=== PATIENT | female | born 1950 | race African-American/Black ===

== ENCOUNTER 2016-12-13 11:32 | Inpatient (IN) ==
--- NOTE | 2016-12-13 12:05 | Emergency Department Note ---
Arrival - Arrival Chief Complaint: Weakness Stated Complaint: abd pain ED Nursing Triage Note: pt c/o generalized weakness and pain to left breast. pt states she is to have breast biopsy on thursday and is off of her coumadin for that procedure. pt states "i can hardly get around." pt denies pain to extremities, chest, or abd. difficult to obtain history from pt. Mode of Arrival: Stretcher Source: Patient Time Seen by Provider: 12/13/16 11:56 - History of Present Illness HPI Narrative: The patient is a very poor historian. Her complaints are very vague and also inconsistent. She initially told the triage nurse that she was weak and having left breast pain. She denies either of those to me. Her complaint to me is that she "just got all worked up" over a breast biopsy which she is to have Thursday. She is very anxious that it might be cancer. She denies any weakness and states she is still getting around well on her own. She denies any chest pain, shortness of breath, nausea, vomiting, abdominal pain, fever, cough or any other recent illness or symptoms. She does have a history of CAD and has had prior bypass. She has a history of GI bleeding in the past and may have had some melena recently, but this is not clear. She is on Coumadin for unknown reasons but she is to stop this tomorrow in preparation for the biopsy. Allergies/Adverse Reactions: Allergies Allergy/AdvReac Type Severity Reaction Status Date / Time No Known Allergies Allergy Verified 12/13/16 11:50 Home Medications: Home Medications Medication Instructions Recorded Confirmed Type Amitriptyline [Elavil] 25 mg PO DAILY 11/28/14 12/13/16 History Furosemide Tab [Lasix Tab] 40 mg PO DAILY 11/28/14 12/13/16 History amLODIPine [Norvasc] 5 mg PO DAILY 11/28/14 12/13/16 History metFORMIN [Glucophage] 1,000 mg PO BID W/MEALS 11/28/14 12/13/16 History Aspirin EC Tab 81 mg PO DAILY 08/15/15 12/13/16 History Pantoprazole Tab [Protonix Tab] 40 mg PO DAILY #90 tablet 02/17/16 12/13/16 Rx Albuterol Sulfate [Proair Hfa] 2 puffs INH Q4H PRN 12/13/16 12/13/16 History Isosorbide Mononitrate [Isosorbide 60 mg PO BID 12/13/16 12/13/16 History Mononitrate ER] Levothyroxine Sodium 75 mcg PO DAILY 12/13/16 12/13/16 History [Levothyroxine Sodium] Nitroglycerin Sl Tab [Nitrostat] 0.4 mg SL Q5M PRN 12/13/16 12/13/16 History Warfarin Sodium [Warfarin Sodium] 5 mg PO DAILY 12/13/16 12/13/16 History Review of System - Review of System 12 point system: reviewed and no additional remarkable complaints except as stated - Review of System Constitutional: Absent: diaphoresis, fever, weakness Eyes: Absent: vision change Head/Ears/Nose/Throat: Absent: nasal drainage Respiratory: Absent: cough Cardiovascular: Absent: chest pain, palpitations, dyspnea on exertion, orthopnea , edema, syncope Gastrointestinal: Present: melena (Questionable). Absent: abdominal pain, nausea, vomiting, diarrhea, constipation, hematochezia Genitourinary female: Absent: dysuria Medical,Surgical,& Family Hx - Medical History Cardio: History of: CAD, Hypertension, MS, Valvular Heart Disease, Cardiovascular Problems No history of: Aneurysm, Cardiac Dysrhythmia, Cerebrovascular Disease, Congenital Heart Disease, CHF, Pacemaker, PVD Psychological: History of: Depression No history of: Anxiety Disorders, ADHD, Behavior Problems, Bipolar Disorder, Previous Suicide Attempt, Psychiatric/Substance Abuse Tx, Schizophrenia, Violent Behavior, Psychiatric Problems Neurology: History of: TIA No history of: Brain Aneurysm, Cerebral Hemorrhage, Cerebrovascular Accident , Cerebral Palsy, Dementia, Migraine, Multiple Sclerosis, Parkinson's Disease, Peripheral Neuropathy, Seizures, Vertigo, Neurologocal Cancer HEENT: History of: Eye Problem (NEAR SIGHTED FAR SIGHTED) No history of: Ear Problem, Dental Problems, Glaucoma, Oral Cancer, HEENT Problems Endocrine: History of: Diabetes Mellitus (NIDDM), Dyslipidemia No history of: Adrenal Disease, Diabetes Mellitus (IDDM), Thyroid Disorder, Endocrine Cancer, Endocrine Problems Rheumatology: No history of;: Fibromyalgia, Gout, Myasthenia Gravis, Psoriasis, Rheumatoid Arthritis, Sjogrens, Systemic Lupus Erythematosus, Rheumatological Problems Respiratory: No history of: Asthma, Bronchitis, COPD, Intubation, Obstructive Sleep Apnea (STATES THAT SHE WAS TESTED AT [facility] AND DOESNT HAVE DALLIN), Pulmonary Embolism, Pulmonary Hypertension, Pneumonia, Lung Cancer, Respiratory Problems Renal: No history of: Renal (Kidney) Cancer, Dialysis, Renal Failure, Renal Problems Genitourinary: History of: Kidney Stones No history of: Bladder Problem, Recurring Urinary Tract Infections, Genitourinary Cancer, Problems Gastrointestinal: History of: Diverticulitis/ Diverticulosis (left-sided diverticulosis), GERD, Gastrointestinal Bleed (multiple small bowel AVMs, or mild gastritis), Polyps (sigmoid hyperplastic polyps), GI Problems No history of: Bowel Obstruction, Clostridium Difficile, Crohn's Disease, Esophageal Varices, Hemorrhoids, Hematochezia, Hepatitis, Liver Problems, Pancreatitis, Ulcerative Colitis, Gastrointestinal Cancer Musculoskeletal: No history of: Amputation, Back/Neck Problems, Degenerative Disk Disease, Herniated Disk, Osteoporosis, Musculoskeletal Cancer, Musculoskeletal Problems Hematology: History of: Anemia No history of: Blood Transfusion Reaction, Bleeding Problems, Clotting Problems, Sickle Cell Disease, Hematologic Cancer, Blood Disorders Reproductive: No history of: Abnormal Pap Smear, Breast Cancer, Endometriosis, Ectopic , Ovarian Cysts, Complication, Sexually Transmitted Disorders , Reproductive Cancer, Reproductive Problems Other: No history of: Anesthesia Reactions, Anaphylaxis, Cancer, Eczema, HIV, Malignant Hyperthermia, MRSA, Vancomycin-Resistant Enterococci, Skin Problems, Miscellaneous Medical Problems - Surgical History Cardiac Surgeries: Sugical HX of: Cardiac Catheterization (with stents), Cardiac Surgery (bypass) Patient Denies: Femoral-Popliteal Bypass Graft, Carotid Endarterectomy, Internal Defibrillator, Vascular Access Devices Thoracic Surgeries: Patient denies;: Kidney (Renal Surgery), Lithotripsy, Nephrectomy, Organ Transplant, Lobectomy Neurologic Surgeries: Patient denies: Brain Aneurysm, Cerebral Hemorrhage, Neurologic Surgery HEENT Surgeries: Patient denies: Carotid Endarterectomy, Eye Surgery, Thyroid Surgery, Tonsilectomy & Adenoidectomy Abdominal Surgeries: Surgical HX of: Colonoscopy, EGD Patient denies: Abdominal Surgery, Appendectomy, Cholecystectomy, Gastric Bypass Surgery, Hernia Repair, Splenectomy Reproductive Surgeries: Surgical HX of;: Gynecologic Surgery, Hysterectomy Patient denies;: Breast Surgery, Section, Cystoscopy, Dilation and Curettage, Genitourinary Surgery, Tubal Ligation Orthopedic Surgeries: Patient denies;: Implanted Devices, Orthopedic Surgery, Spinal Surgery, Total Hip Replacement, Total Knee Replacement - Family History Family History: Reports;: Family Cancer (MOTHER CERVICAL), Family Stroke (FATHER ) Denies;: Family Anesthesia Reaction, Family Diabetes, Family Heart Disease, Family Hypertension, Family Psychiatric Problems - Social History Smoking Status: Current every day smoker Frequency of Alcohol Use: None Type of Drug Use: None Exam Physical Examination: GENERAL: Alert. No acute distress. HEENT: Normocephalic and atraumatic. Pale conjunctival. There is no nasal drainage. No pharyngeal erythema or exudate. NECK: Normal inspection. Supple. No lymphadenopathy or meningismus. LUNGS: No respiratory distress. Clear to auscultation bilaterally, no wheezes, rales or rhonchi. HEART: Regular rate and rhythm. ABDOMEN: Soft, nontender and nondistended with normoactive bowel sounds. BACK: Normal inspection. SKIN: Color normal. Warm and dry. EXTREMITIES: Nontender. Normal range of motion. No cyanosis. Nailbeds are pale. NEUROLOGICAL/PSYCHIATRIC: Alert and oriented -3 with normal mood and affect. Cranial nerves normal. No motor or sensory deficit. Vital Signs: Vital Signs Temperature 97.8 F 12/13/16 11:32 Pulse Rate 88 12/13/16 11:32 Respiratory Rate 18 12/13/16 11:32 Blood Pressure 113/73 12/13/16 11:32 O2 Sat by Pulse Oximetry 98 12/13/16 11:32 Course Course Narrative: Note: The multiple negatives in the past medical history were not marked by me. They are the result of the triage process, past medical records or other unknown causes. Due to time constraints, these were not all reviewed with the patient and the backslashes were not removed from the chart. They should be ignored. - Reevaluation(s) Reevaluation #1: The old chart was reviewed. This revealed that the patient is on Coumadin for a mechanical mitral valve. It also showed that the patient has a history of chronic GI bleeding from AVMs and has required transfusions multiple times in the past. The family did show and was able to contribute some history. They say that despite her denial she has been weak. They called the ambulance because she was too weak to get up off the couch earlier today. Time: 13:22 Reevaluation #2: The patient has remained stable in the ER. The patient has multiple medical problems. Her troponin is elevated at 1.37 but her CK and CK-MB are normal and she has no complaints of chest pain, shortness of breath, diaphoresis, nausea or vomiting. Her EKG shows some T-wave inversions. I have discussed this with Dr. Gant. He recommends admission to the hospitalist service because of all of her other problems. She has what appears to be pneumonia on the chest x-ray with an elevated white blood cell count. She also has a urinary tract infection and acute renal failure. Her liver enzymes are also markedly elevated , which is something new for her as well. She is anemic and this is chronic but she is a little below baseline. Her potassium is slightly elevated and she appears mildly dehydrated as well. I have discussed all of this with the hospitalist service who will see her and admit. Time: 14:21 Results - Labs CBC & BMP: 12/13/16 12:21 12/13/16 12:21 Lab Results: I have reviewed the patients labs Labs: Laboratory Tests 12/13/16 12/13/16 12/13/16 11:57 12:21 12:21 INR 2.8 D-Dimer, Quantitative 6.0 Calculated Osmolality 304.8 H AST 1315 H ALT 1769 H Alkaline Phosphatase 194 H Total Creatine Kinase 172 CK-MB (CK-2) 1.1 Troponin I 1.370 H Ur Specific [place] 1.014 Urine Urobilinogen 2.0 H Urine Leukocytes Large H Urine RBC 15 Urine WBC 210 Urine WBC Clumps Many Urine Bacteria Many Ur Culture Indicated? Results to follow - Impressions Chest x-ray shows an area of increased density in the right base consistent with pneumonia or possibly asymmetric CHF. EKG shows a sinus rhythm at 88 with a PAC. There is right axis deviation and some mild ST depression in lead I. There are inverted T waves in 1 and aVL. This is changed from an EKG done in July of this year which showed left axis deviation and an incomplete left bundle branch block. Disposition Clinical Impression: Chronic GI bleeding, History of prosthetic mitral valve, Anemia, Pneumonia, UTI (urinary tract infection), Acute renal failure, Elevated liver enzymes, Hyperkalemia, Dehydration, Generalized weakness, Elevated troponin Case discussed with: patient Disposition: Still a Patient Condition: Stable Time of Disposition: 14:21
[2016-12-13 12:24] LABS: Basophils % 0.1 % (0.0-0.8); Hematocrit 26.5 VOL% (35.7-47.0); Hemoglobin 8.4 GM/DL (12.0-16.0); Immature Granulocytes % 0.7 %; Lymphocytes # 0.5 10*3/uL (1.4-4.0); Lymphocytes % 3.6 % (21.3-54.2); Mean Corpuscular HGB Conc 31.7 GM/DL (32-36); Mean Corpuscular Hemoglobin 25 PG (27-34); Mean Corpuscular Volume 78.2 FL (87-102); Mean Platelet Volume 11.5 FL (9.6-12.0); Monocytes # 0.8 10*3/uL (0.11-0.8); Monocytes % 5.2 % (1.7-12.7); NRBC # 0.03 10*3/uL; Neutrophils # 13.3 10*3/uL (1.4-7.4); Neutrophils % 90.4 % (38.7-73.9); Platelet Count 176 T/CUMM (130-400); Red Blood Count 3.39 MC/CUMM (3.8-5.5); Red Cell Distribution Width 19.4 % (9.3-17.3); White Blood Count 14.7 T/CUMM (4-12)
--- NOTE | 2016-12-13 12:43 | XRay Report ---
History is weakness Comparison 07/08/2016 Cardiac silhouette is moderately enlarged. There are increasing reticulonodular and hazy opacities in the lower third of the right chest. Impression: 1. Mild right basilar infiltrates versus asymmetric edema PROCEDURE INTERPRETED AT [facility] DEPARTMENT OF RADIOLOGY Final Report Signed by: Dr. Teagan Vieira
[2016-12-13 12:46] LABS: INR 2.8
[2016-12-13 12:47] LABS: PT Patient Result 31.4 SECS; Partial Thromboplastin Time 41.2 SECS (0-40)
[2016-12-13 13:26] LABS: Hypochromasia 2+; Microcytosis 1+; Polychromasia Slight; Target Cells Slight
[2016-12-13 13:27] LABS: Platelet Estimate Adequate
[2016-12-13 13:28] LABS: Alanine Aminotransferase 1769 U/L (13-56); Albumin 3.1 G/DL (3.4-5.0); Alkaline Phosphatase 194 U/L (45-117); Aspartate Amino Transferase 1315 U/L (0-37); Blood Urea Nitrogen 78 MG/DL (7-18); Glucose 267 MG/DL (74-106); Osmolality,Calculated 304.8 MOS/KG (273-304); Potassium 5.2 MMOL/L (3.5-5.1); Sodium 137 MMOL/L (136-145); Total Protein 6.7 G/DL (6.4-8.3)
[2016-12-13 13:55] LABS: Apearance,Urine CLOUDY (Clear); Bacteria,Urine Many /HPF (Few); Bilirubin,Urine Negative (Negative); Blood, Urine Moderate mg/dL (Negative); Glucose,Urine (UA) Negative (Negative); Ketones,Urine Negative (Negative); Nitrite,Urine Negative (Negative); Protein,Urine 100 MG/DL; RBC,Urine 15 /HPF (0-4); Urine Color Amber (Yellow); Urine Specific Gravity 1.014 (1.001-1.035); WBC,Urine 210 /HPF (0-6)
--- NOTE | 2016-12-13 14:12 | EKG Report ---
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
[2016-12-13] MEDS ORDERED: cefTRIAXone 1,000 MG in SODIUM CHLORIDE 0.9% 100 ML IV STA (14:21)
[2016-12-13] MEDS ORDERED: cefTRIAXone 1,000 MG VIAL ONE (14:41)
--- NOTE | 2016-12-13 16:22 | Hospitalist History & Physical ---
Assessment and Plan - Time spent with patient Time spent with patient: Greater than 30 minutes (1) Pneumonia Status: Acute Assessment and plan: Chest x-ray reveals mild right basilar infiltrates. Patient's white count of 14.7. Patient will be admitted and treated with IV antibiotics and breathing treatment. Current Visit: Yes (2) UTI (urinary tract infection) Status: Acute Assessment and plan: Urinalysis is cloudy and reveals large leukocytes with WBC clumps and bacteria. He seems to follow. Patient started on ceftriaxone in the ED. Will continue current treatment. Current Visit: Yes (3) Acute renal failure Status: Acute Assessment and plan: Creatinine 6.6. Gentle IV hydration. Avoid nephrotoxic agents. Continue to monitor. Consult nephrology as needed. Current Visit: Yes (4) Elevated liver enzymes Status: Acute Current Visit: Yes (5) Hyperkalemia Status: Acute Assessment and plan: Kayexalate. Monitor electrolytes. Supplement as indicated. Current Visit: Yes (6) Dehydration Status: Acute Assessment and plan: Gentle IV hydration Current Visit: Yes (7) Elevated troponin Status: Acute Assessment and plan: Troponin I 1.370. Cardiology has been consulted. Serial cardiac enzymes. Current Visit: Yes (8) Generalized weakness Status: Acute Current Visit: Yes History of Present Illness Chief complaint: generalized weakness History of present illness: Ms. Yañez is a 66 year old female with a past medical history significant for chronic GI bleeding, AVMs, prosthetic mitral valve, hypertension, diabetes mellitus, GERD, CAD who presents to the ED with complaints of generalized weakness. The patient is a poor historian and no family member was present at the time of the exam. Most of the history comes from the patient's chart and ER documentation. The patient apparently has been "worked up" about a pending breast biopsy which is scheduled for Thursday. Family notes that the patient has been increasingly weak and was too weak to get off of the couch this morning. Patient arrived at the ED via EMS. On admission, the patient was found to have an array of problems including: UTI, acute renal failure, elevated liver enzymes, elevated white count, anemia, hyperkalemia and dehydration. Patient was found to have an elevated troponin at 1.37 without chest pain, diaphoresis, nausea or vomiting. The patient did, however, admit to ongoing shortness of breath. Case was discussed with Dr. Gant, bark tanner, Dr. Rae, ER physician, and Dr. Villasenor and it was decided that the patient will be admitted to the hospital medicine service for further evaluation and treatment. Patient is a full code. Home Medications Medication Instructions Recorded Confirmed Type Amitriptyline [Elavil] 25 mg PO DAILY 11/28/14 12/13/16 History Furosemide Tab [Lasix Tab] 40 mg PO DAILY 11/28/14 12/13/16 History amLODIPine [Norvasc] 5 mg PO DAILY 11/28/14 12/13/16 History metFORMIN [Glucophage] 1,000 mg PO BID W/MEALS 11/28/14 12/13/16 History Aspirin EC Tab 81 mg PO DAILY 08/15/15 12/13/16 History Pantoprazole Tab [Protonix Tab] 40 mg PO DAILY #90 tablet 02/17/16 12/13/16 Rx Albuterol Sulfate [Proair Hfa] 2 puffs INH Q4H PRN 12/13/16 12/13/16 History Isosorbide Mononitrate [Isosorbide 60 mg PO BID 12/13/16 12/13/16 History Mononitrate ER] Levothyroxine Sodium 75 mcg PO DAILY 12/13/16 12/13/16 History [Levothyroxine Sodium] Nitroglycerin Sl Tab [Nitrostat] 0.4 mg SL Q5M PRN 12/13/16 12/13/16 History Warfarin Sodium [Warfarin Sodium] 5 mg PO DAILY 12/13/16 12/13/16 History Allergies Allergy/AdvReac Type Severity Reaction Status Date / Time No Known Allergies Allergy Verified 12/13/16 11:50 Medical,Surgical,& Family Hx - Medical History Cardio: History of: CAD, Hypertension, CT, Valvular Heart Disease, Cardiovascular Problems No history of: Aneurysm, Cardiac Dysrhythmia, Cerebrovascular Disease, Congenital Heart Disease, CHF, Pacemaker, PVD Psychological: History of: Depression No history of: Anxiety Disorders, ADHD, Behavior Problems, Bipolar Disorder, Previous Suicide Attempt, Psychiatric/Substance Abuse Tx, Schizophrenia, Violent Behavior, Psychiatric Problems Neurology: History of: TIA No history of: Brain Aneurysm, Cerebral Hemorrhage, Cerebrovascular Accident , Cerebral Palsy, Dementia, Migraine, Multiple Sclerosis, Parkinson's Disease, Peripheral Neuropathy, Seizures, Vertigo, Neurologocal Cancer HEENT: History of: Eye Problem (NEAR SIGHTED FAR SIGHTED) No history of: Ear Problem, Dental Problems, Glaucoma, Oral Cancer, HEENT Problems Endocrine: History of: Diabetes Mellitus (NIDDM), Dyslipidemia No history of: Adrenal Disease, Diabetes Mellitus (IDDM), Thyroid Disorder, Endocrine Cancer, Endocrine Problems Rheumatology: No history of;: Fibromyalgia, Gout, Myasthenia Gravis, Psoriasis, Rheumatoid Arthritis, Sjogrens, Systemic Lupus Erythematosus, Rheumatological Problems Respiratory: No history of: Asthma, Bronchitis, COPD, Intubation, Obstructive Sleep Apnea (STATES THAT SHE WAS TESTED AT [facility] AND DOESNT HAVE DALLIN), Pulmonary Embolism, Pulmonary Hypertension, Pneumonia, Lung Cancer, Respiratory Problems Renal: No history of: Renal (Kidney) Cancer, Dialysis, Renal Failure, Renal Problems Genitourinary: History of: Kidney Stones No history of: Bladder Problem, Recurring Urinary Tract Infections, Genitourinary Cancer, Problems Gastrointestinal: History of: Diverticulitis/ Diverticulosis (left-sided diverticulosis), GERD, Gastrointestinal Bleed (multiple small bowel AVMs, or mild gastritis), Polyps (sigmoid hyperplastic polyps), GI Problems No history of: Bowel Obstruction, Clostridium Difficile, Crohn's Disease, Esophageal Varices, Hemorrhoids, Hematochezia, Hepatitis, Liver Problems, Pancreatitis, Ulcerative Colitis, Gastrointestinal Cancer Musculoskeletal: No history of: Amputation, Back/Neck Problems, Degenerative Disk Disease, Herniated Disk, Osteoporosis, Musculoskeletal Cancer, Musculoskeletal Problems Hematology: History of: Anemia No history of: Blood Transfusion Reaction, Bleeding Problems, Clotting Problems, Sickle Cell Disease, Hematologic Cancer, Blood Disorders Reproductive: No history of: Abnormal Pap Smear, Breast Cancer, Endometriosis, Ectopic , Ovarian Cysts, Complication, Sexually Transmitted Disorders , Reproductive Cancer, Reproductive Problems Other: No history of: Anesthesia Reactions, Anaphylaxis, Cancer, Eczema, HIV, Malignant Hyperthermia, MRSA, Vancomycin-Resistant Enterococci, Skin Problems, Miscellaneous Medical Problems - Surgical History Cardiac Surgeries: Sugical HX of: Cardiac Catheterization (with stents), Cardiac Surgery (bypass) Patient Denies: Femoral-Popliteal Bypass Graft, Carotid Endarterectomy, Internal Defibrillator, Vascular Access Devices Thoracic Surgeries: Patient denies;: Kidney (Renal Surgery), Lithotripsy, Nephrectomy, Organ Transplant, Lobectomy Neurologic Surgeries: Patient denies: Brain Aneurysm, Cerebral Hemorrhage, Neurologic Surgery HEENT Surgeries: Patient denies: Carotid Endarterectomy, Eye Surgery, Thyroid Surgery, Tonsilectomy & Adenoidectomy Abdominal Surgeries: Surgical HX of: Colonoscopy, EGD Patient denies: Abdominal Surgery, Appendectomy, Cholecystectomy, Gastric Bypass Surgery, Hernia Repair, Splenectomy Reproductive Surgeries: Surgical HX of;: Gynecologic Surgery, Hysterectomy Patient denies;: Breast Surgery, Section, Cystoscopy, Dilation and Curettage, Genitourinary Surgery, Tubal Ligation Orthopedic Surgeries: Patient denies;: Implanted Devices, Orthopedic Surgery, Spinal Surgery, Total Hip Replacement, Total Knee Replacement - Family History Family History: Reports;: Family Cancer (MOTHER CERVICAL), Family Stroke (FATHER ) Denies;: Family Anesthesia Reaction, Family Diabetes, Family Heart Disease, Family Hypertension, Family Psychiatric Problems - Social History Smoking Status: Current every day smoker Frequency of Alcohol Use: None Type of Drug Use: None Marital Status: Single Lives With:: Children Functional capacity: independent ambulation ROS unobtainable: due to mental status - Respiratory Respiratory: Present: dyspnea Exam - Constitutional Vitals: Period Temp Pulse Resp BP Sys/Eli Pulse Ox Last 24 Hr 97.8 F-97.8 F 77-98 16-18 103-139/61-76 94-100 General appearance: mild distress, morbidly obese - Head Head exam: Present: normal inspection, normocephalic, atraumatic - Eye Eye exam: Present: EOMI Pupils: Present: IRWIN - ENT ENT exam: Present: normal external ear exam - Neck Neck exam: Present: normal inspection. Absent: lymphadenopathy, tenderness - Respiratory Respiratory exam: Present: decreased breath sounds. Absent: rales, wheezes - Cardiovascular Cardiovascular exam: Present: regular rate and rhythm - GI/Abdominal GI/Abdominal exam: Present: normal bowel sounds. Absent: mass, tenderness, rebound - Extremities Exam Extremities exam: Present: normal capillary refill, edema - Back Exam Back exam: Present: other (unable to assess due to mental status and pt cooperation) - Neurological Exam Neurological exam: Present: alert, altered, CN II-XII intact - Psychiatric Psychiatric exam: Absent: normal affect, normal mood, agitated - Skin Skin exam: Present: normal color, dry Results - Labs CBC & BMP: 12/13/16 12:21 12/13/16 12:21
[2016-12-13] MEDS ORDERED: ACETAMINOPHEN 325 MG TABLET PO PRN (16:37)
[2016-12-13] MEDS ORDERED: ONDANSETRON 4 MG/2 ML VIAL IV PRN (16:37)
[2016-12-13] MEDS ORDERED: GLUCAGON 1 MG VIAL IM PRN (16:37)
[2016-12-13] MEDS ORDERED: ZALEPLON 5 MG CAPSULE PO PRN (16:37)
[2016-12-13] MEDS ORDERED: DOCUSATE SODIUM 100 MG CAPSULE PO PRN (16:37)
[2016-12-13] MEDS ORDERED: LACTULOSE 20 GM/30 ML UDCUP PO PRN (16:37)
[2016-12-13] MEDS ORDERED: DEXTROSE 50% 25 GM/50 ML VIAL IV PRN (16:37)
[2016-12-13] MEDS ORDERED: NITROGLYCERIN SL 0.4 MG TABLET SL PRN (16:41)
[2016-12-13] MEDS ORDERED: metFORMIN 500 MG TABLET PO SCH (17:00)
[2016-12-13] MEDS ORDERED: LEVOFLOXACIN INJ 750 MG in PREMIX 1 EACH IV ONE (17:00)
[2016-12-13] MEDS: PANTOPRAZOLE 40 MG TABLET PO SCH (17:00)
[2016-12-13] MEDS: SODIUM CHLORIDE 0.9% 1,000 ML IV SCH ×2 (17:02→23:45)
[2016-12-13] MEDS ORDERED: ALBUTEROL 2.5 MG/3 ML NEB RESP TX PRN (19:00)
[2016-12-13] MEDS ORDERED: ALUMINUM/MAGNES/SIMETH MAX STR 30 ML UDCUP PO PRN (20:08)
[2016-12-13] MEDS: ISOSORBIDE MONONITRATE 60 MG TABLET PO SCH (21:06)
[2016-12-13] MEDS: INSULIN LISPRO 100 UNIT/ML SUBCUT SCH (21:11)
[2016-12-14] MEDS: SODIUM CHLORIDE 0.9% 1,000 ML IV SCH ×4 (03:09→20:22)
[2016-12-14 06:13] LABS: Basophils % 0.1 % (0.0-0.8); Hematocrit 22.9 VOL% (35.7-47.0); Hemoglobin 7.1 GM/DL (12.0-16.0); Immature Granulocytes % 0.7 %; Lymphocytes # 0.7 10*3/uL (1.4-4.0); Lymphocytes % 4.3 % (21.3-54.2); Mean Corpuscular Hemoglobin 24 PG (27-34); Mean Corpuscular Volume 78.7 FL (87-102); Mean Platelet Volume 12.9 FL (9.6-12.0); Monocytes # 0.9 10*3/uL (0.11-0.8); Monocytes % 5.8 % (1.7-12.7); NRBC # 0.06 10*3/uL; Neutrophils # 13.6 10*3/uL (1.4-7.4); Neutrophils % 89.1 % (38.7-73.9); Platelet Count 170 T/CUMM (130-400); Red Blood Count 2.91 MC/CUMM (3.8-5.5); Red Cell Distribution Width 19.6 % (9.3-17.3); White Blood Count 15.2 T/CUMM (4-12)
[2016-12-14 06:36] LABS: Calcium 6.7 MG/DL (8.5-10.1); Osmolality,Calculated 305.7 MOS/KG (273-304); Potassium 5.2 MMOL/L (3.5-5.1)
[2016-12-14 07:34] LABS: Band Neutrophils 6 % (0-10); Lymphocytes 3 % (20-55); Segmented Neutrophils 90 % (50-85); Total Cells Counted 100
[2016-12-14 07:35] LABS: Hypochromasia 2+; Microcytosis Slight; Platelet Estimate Adequate
[2016-12-14] MEDS ORDERED: SODIUM CHLORIDE 0.9% 250 ML IV PRN (08:22)
[2016-12-14] MEDS ORDERED: FUROSEMIDE 40 MG TABLET PO SCH (09:00)
[2016-12-14] MEDS: LEVOTHYROXINE 75 MCG TABLET PO SCH (09:45)
[2016-12-14] MEDS: ISOSORBIDE MONONITRATE 60 MG TABLET PO SCH ×2 (09:45→20:22)
[2016-12-14] MEDS: PANTOPRAZOLE 40 MG TABLET PO SCH (09:46)
[2016-12-14] MEDS: AMITRIPTYLINE 25 MG TABLET PO SCH (09:46)
[2016-12-14] MEDS: INSULIN LISPRO 100 UNIT/ML SUBCUT SCH ×4 (09:48→21:07)
[2016-12-14 10:17] LABS: Ferritin 81.4 ng/ml (8-252)
--- NOTE | 2016-12-14 10:18 | Nephrology Consult Note ---
History of Present Illness Chief complaint: Increased BUN and creatinine History of present illness: Ms. Yañez is a 66 year old female who was admitted for generalized weakness and chest pain. The history is taken from the chart the patient's daughter and the patient. The patient apparently has not been eating well for several weeks per the daughter although the patient states her symptoms started just a few days ago. The patient has been told that she needs a breast biopsy and apparently has been very worried about this. We were asked see the patient for increased creatinine. The patient had a creatinine around 1.7 mg/dL about 6 months or so ago, on admission here the patient's creatinine was around 6.9 mg /dL and is increased to 7 mg/dL today. The patient denies any problems with urination, she denies any straining or decreased urine output. She does state that she has been having some dysuria occasionally. The patient also admits to not eating very well and not having much of an appetite. The patient has not had any contrast studies recently, she denies any nonsteroidal anti- inflammatory medication intake other than an 81 mg aspirin. Patient states she has had some abdominal discomfort. ROS: Head - denies headaches ENT - denies sore throat Lymphatics - denies lymphadenopathy Hematology - denies bleeding problems Heart -positive chest pain Lungs - denies shortness of breath Abdomen -positive abdominal pain Musculoskeletal - denies arthritis Skin - denies rash Neurology -positive stroke General - denies fever PE: General: in no acute distress Eyes: Pupils are round and reactive, conjunctivae are clear ENT: Nose is clear, O/P is benign Neck: Supple, no thyromegaly Lymphatics: No cervical, supraclavicular or axillary adenopathy Heart: Regular rate and rhythm, trace to 1+ pretibial edema Lungs: Clear to auscultation anteriorly, chest expansion symmetric Abdomen: Soft, normoactive bowel sounds, no hepatomegaly Musculoskeletal: No joint erythema or effusions or joint asymmetry Skin: Normal turgor, normal hydration, no rash Neuro/Psych: Patient is drowsy she does awake to answer some questions, she has poor insight Home Medications Medication Instructions Recorded Confirmed Type Amitriptyline [Elavil] 25 mg PO DAILY 11/28/14 12/13/16 History Furosemide Tab [Lasix Tab] 40 mg PO DAILY 11/28/14 12/13/16 History amLODIPine [Norvasc] 5 mg PO DAILY 11/28/14 12/13/16 History metFORMIN [Glucophage] 1,000 mg PO BID W/MEALS 11/28/14 12/13/16 History Aspirin EC Tab 81 mg PO DAILY 08/15/15 12/13/16 History Pantoprazole Tab [Protonix Tab] 40 mg PO DAILY #90 tablet 02/17/16 12/13/16 Rx Albuterol Sulfate [Proair Hfa] 2 puffs INH Q4H PRN 12/13/16 12/13/16 History Carvedilol [Coreg] 25 mg PO BID 12/13/16 12/13/16 History Estradiol [Estradiol Tab] 0.5 mg PO DAILY 12/13/16 12/13/16 History Ferrous Sulfate Tab [Feosol 325 mg PO TID 12/13/16 12/13/16 History Original Tab] Hydralazine HCl 25 mg PO TID 12/13/16 12/13/16 History Isosorbide Mononitrate [Isosorbide 60 mg PO BID 12/13/16 12/13/16 History Mononitrate ER] Levothyroxine Sodium 75 mcg PO DAILY 12/13/16 12/13/16 History [Levothyroxine Sodium] Magnesium Chloride [Slow-Mag] 71.5 mg PO BID 12/13/16 12/13/16 History Nitroglycerin Sl Tab [Nitrostat] 0.4 mg SL Q5M PRN 12/13/16 12/13/16 History Potassium Chloride Cap/Tab [K Dur] 10 meq PO BID 12/13/16 12/13/16 History Simvastatin [Zocor] 40 mg PO DAILY 12/13/16 12/13/16 History Warfarin Sodium [Warfarin Sodium] 5 mg PO DAILY 12/13/16 12/13/16 History chlordiazePOXIDE HCl 10 mg PO TID 12/13/16 12/13/16 History [Chlordiazepoxide HCl] Allergies Allergy/AdvReac Type Severity Reaction Status Date / Time No Known Allergies Allergy Verified 12/13/16 11:50 Medical,Surgical,& Family Hx - Medical History Cardio: History of: CAD, Hypertension, CA, Valvular Heart Disease, Cardiovascular Problems No history of: Aneurysm, Cardiac Dysrhythmia, Cerebrovascular Disease, Congenital Heart Disease, CHF, Pacemaker, PVD Psychological: History of: Depression No history of: Anxiety Disorders, ADHD, Behavior Problems, Bipolar Disorder, Previous Suicide Attempt, Psychiatric/Substance Abuse Tx, Schizophrenia, Violent Behavior, Psychiatric Problems Neurology: History of: TIA No history of: Brain Aneurysm, Cerebral Hemorrhage, Cerebrovascular Accident , Cerebral Palsy, Dementia, Migraine, Multiple Sclerosis, Parkinson's Disease, Peripheral Neuropathy, Seizures, Vertigo, Neurologocal Cancer HEENT: History of: Eye Problem (NEAR SIGHTED FAR SIGHTED) No history of: Ear Problem, Dental Problems, Glaucoma, Oral Cancer, HEENT Problems Endocrine: History of: Diabetes Mellitus (NIDDM), Dyslipidemia No history of: Adrenal Disease, Diabetes Mellitus (IDDM), Thyroid Disorder, Endocrine Cancer, Endocrine Problems Rheumatology: No history of;: Fibromyalgia, Gout, Myasthenia Gravis, Psoriasis, Rheumatoid Arthritis, Sjogrens, Systemic Lupus Erythematosus, Rheumatological Problems Respiratory: No history of: Asthma, Bronchitis, COPD, Intubation, Obstructive Sleep Apnea (STATES THAT SHE WAS TESTED AT [facility] AND DOESNT HAVE DALLIN), Pulmonary Embolism, Pulmonary Hypertension, Pneumonia, Lung Cancer, Respiratory Problems Renal: No history of: Renal (Kidney) Cancer, Dialysis, Renal Failure, Renal Problems Genitourinary: History of: Kidney Stones No history of: Bladder Problem, Recurring Urinary Tract Infections, Genitourinary Cancer, Problems Gastrointestinal: History of: Diverticulitis/ Diverticulosis (left-sided diverticulosis), GERD, Gastrointestinal Bleed (multiple small bowel AVMs, or mild gastritis), Polyps (sigmoid hyperplastic polyps), GI Problems No history of: Bowel Obstruction, Clostridium Difficile, Crohn's Disease, Esophageal Varices, Hemorrhoids, Hematochezia, Hepatitis, Liver Problems, Pancreatitis, Ulcerative Colitis, Gastrointestinal Cancer Musculoskeletal: No history of: Amputation, Back/Neck Problems, Degenerative Disk Disease, Herniated Disk, Osteoporosis, Musculoskeletal Cancer, Musculoskeletal Problems Hematology: History of: Anemia No history of: Blood Transfusion Reaction, Bleeding Problems, Clotting Problems, Sickle Cell Disease, Hematologic Cancer, Blood Disorders Reproductive: No history of: Abnormal Pap Smear, Breast Cancer, Endometriosis, Ectopic , Ovarian Cysts, Complication, Sexually Transmitted Disorders , Reproductive Cancer, Reproductive Problems Other: No history of: Anesthesia Reactions, Anaphylaxis, Cancer, Eczema, HIV, Malignant Hyperthermia, MRSA, Vancomycin-Resistant Enterococci, Skin Problems, Miscellaneous Medical Problems - Surgical History Cardiac Surgeries: Sugical HX of: Cardiac Catheterization (with stents), Cardiac Surgery (bypass) Patient Denies: Femoral-Popliteal Bypass Graft, Carotid Endarterectomy, Internal Defibrillator, Vascular Access Devices Thoracic Surgeries: Patient denies;: Kidney (Renal Surgery), Lithotripsy, Nephrectomy, Organ Transplant, Lobectomy Neurologic Surgeries: Patient denies: Brain Aneurysm, Cerebral Hemorrhage, Neurologic Surgery HEENT Surgeries: Patient denies: Carotid Endarterectomy, Eye Surgery, Thyroid Surgery, Tonsilectomy & Adenoidectomy Abdominal Surgeries: Surgical HX of: Colonoscopy, EGD Patient denies: Abdominal Surgery, Appendectomy, Cholecystectomy, Gastric Bypass Surgery, Hernia Repair, Splenectomy Reproductive Surgeries: Surgical HX of;: Gynecologic Surgery, Hysterectomy Patient denies;: Breast Surgery, Section, Cystoscopy, Dilation and Curettage, Genitourinary Surgery, Tubal Ligation Orthopedic Surgeries: Patient denies;: Implanted Devices, Orthopedic Surgery, Spinal Surgery, Total Hip Replacement, Total Knee Replacement - Family History Family History: Reports;: Family Cancer (MOTHER CERVICAL), Family Stroke (FATHER ) Denies;: Family Anesthesia Reaction, Family Diabetes, Family Heart Disease, Family Hypertension, Family Psychiatric Problems - Social History Smoking Status: Current every day smoker Frequency of Alcohol Use: None Type of Drug Use: None Exam - Vital Signs Vital signs: Period Temp Pulse Resp BP Sys/Eli Pulse Ox Last 24 Hr 97.4 F-98.1 F 77-98 16-20 103-140/61-76 89-100 Results - Labs CBC & BMP: 12/14/16 04:29 12/14/16 04:30 Assessment and Plan (1) Acute renal failure Status: Acute Assessment and plan: This patient has some baseline chronic renal insufficiency related to diabetes and hypertension, and now has acute renal failure with a creatinine of around 7 mg/dL, this may be related to poor p.o. intake, as well as her infection with her UTI and possible occult hypoperfusion and hypotension related to her anemia. Will check a fractional excretion of urea nitrogen and sodium, I am going to start her on some IV fluids will also check a renal ultrasound and a bladder scan for urinary retention. Current Visit: Yes (2) Anemia Status: Acute Assessment and plan: I would have a low threshold for transfusing her. Current Visit: Yes (3) Elevated liver enzymes Status: Acute Assessment and plan: This may go along with some occult hypotension and shock liver Current Visit: Yes (4) Generalized weakness Status: Acute Current Visit: Yes (5) History of prosthetic mitral valve Status: Acute Current Visit: Yes (6) Pneumonia Status: Acute Assessment and plan: I agree with IV antibiotics Current Visit: Yes (7) UTI (urinary tract infection) Status: Acute Current Visit: Yes
[2016-12-14 10:22] LABS: Albumin 2.7 G/DL (3.4-5.0); Bilirubin,Direct 0.2 MG/DL (0.0-0.20); Bilirubin,Indirect 0.2 MG/DL (0.0-1.0); Bilirubin,Total 0.4 MG/DL (0.2-1.0); Total Protein 6.1 G/DL (6.4-8.3)
[2016-12-14] MEDS ORDERED: DEXTROSE IV SCH ×2 (10:30→12:00)
[2016-12-14] MEDS ORDERED: MULTIVITAMIN IV SCH ×2 (10:30→12:00)
[2016-12-14] MEDS ORDERED: THIAMINE IV SCH ×2 (10:30→12:00)
--- NOTE | 2016-12-14 10:35 | Ultrasound Report ---
History his elevated liver enzymes The liver is 18.8 cm in length. There is mild relative increased echogenicity of the hepatic triad structures throughout the liver. Hepatic echotexture is otherwise within normal limits No renal hydronephrosis seen bilaterally Spleen is 10.0 cm in length No biliary ductal dilatation is seen Proximal visualized aorta and IVC are normal in size. There or distally. Visualized pancreatic body is normal in size. Portions of the head and tail obscured by bowel gas Patient is status post cholecystectomy Impression: 1. Prior cholecystectomy 2. Limited visualization of midline retroperitoneal structures 3. Mild relatively increased echogenicity of hepatic triad structures can be associated with sequelae of hepatitis or other causes of liver edema. Clinical correlation requested The Ultrasound images were captured and stored. PROCEDURE INTERPRETED AT [facility] DEPARTMENT OF RADIOLOGY Final Report Signed by: Dr. Teagan Vieira
[2016-12-14 10:57] LABS: Folate > 24.0 NG/ML (5.4-24.0); Vitamin B12 1098 PG/ML (211-911)
--- NOTE | 2016-12-14 11:20 | Cardiology Consult Note ---
Assessment and Plan (1) H/O mitral valve replacement with mechanical valve Status: Acute Assessment and plan: She will require chronic anticoagulation for this. Current Visit: Yes (2) Acute renal failure Status: Acute Current Visit: Yes (3) Chronic GI bleeding Status: Acute Current Visit: Yes (4) Acute combined systolic and diastolic CHF, NYHA class 3 Status: Acute Current Visit: No (5) Congestive heart failure Status: Acute Current Visit: No (6) Coronary artery disease Status: Acute Assessment and plan: She has elevations in her troponins and are clear-cut. She has been complaining of "gas" over the last several days. She is significantly anemic and they aretransfusing her. Current Visit: No (7) PAD (peripheral artery disease) Status: Acute Current Visit: No History of Present Illness - Data of Consult Patient: known to practice within the last 3 years - Consult Narrative Reason for consult: Elevated troponins History of present illness: Ms. Yañez is a 66 year old female who is well known to me. She had a mechanical mitral valve prosthesis placed for severe MR probably 10 years ago. She has been on chronic anticoagulation since that time. She also has severe coronary disease and has had multiple percutaneous interventions with stenting of the distal right and other vessels over the years. She has been clinically stable and has had problems with GI bleeds in the past to the point that we had to stop her Plavix at least temporarily while she was at risk for acute stent thrombosis. She has had problems with bronchospastic disease and a history of diabetes bronchospastic disease chronic anticoagulation anginal chest pain cardiomyopathy and peptic ulcer disease. She now has elevated liver function tests and worsening level of consciousness and appears to be to be encephalopathic. Her creatinine is 6.6. She was recently told that she had lesions of both breasts worse on the left and was for breast biopsy. CC: Racquel Villasenor MD - Home Medications and Allergies Home Medications: Home Medications Medication Instructions Recorded Confirmed Type Amitriptyline [Elavil] 25 mg PO DAILY 11/28/14 12/13/16 History Furosemide Tab [Lasix Tab] 40 mg PO DAILY 11/28/14 12/13/16 History amLODIPine [Norvasc] 5 mg PO DAILY 11/28/14 12/13/16 History metFORMIN [Glucophage] 1,000 mg PO BID W/MEALS 11/28/14 12/13/16 History Aspirin EC Tab 81 mg PO DAILY 08/15/15 12/13/16 History Pantoprazole Tab [Protonix Tab] 40 mg PO DAILY #90 tablet 02/17/16 12/13/16 Rx Albuterol Sulfate [Proair Hfa] 2 puffs INH Q4H PRN 12/13/16 12/13/16 History Carvedilol [Coreg] 25 mg PO BID 12/13/16 12/13/16 History Estradiol [Estradiol Tab] 0.5 mg PO DAILY 12/13/16 12/13/16 History Ferrous Sulfate Tab [Feosol 325 mg PO TID 12/13/16 12/13/16 History Original Tab] Hydralazine HCl 25 mg PO TID 12/13/16 12/13/16 History Isosorbide Mononitrate [Isosorbide 60 mg PO BID 12/13/16 12/13/16 History Mononitrate ER] Levothyroxine Sodium 75 mcg PO DAILY 12/13/16 12/13/16 History [Levothyroxine Sodium] Magnesium Chloride [Slow-Mag] 71.5 mg PO BID 12/13/16 12/13/16 History Nitroglycerin Sl Tab [Nitrostat] 0.4 mg SL Q5M PRN 12/13/16 12/13/16 History Potassium Chloride Cap/Tab [K Dur] 10 meq PO BID 12/13/16 12/13/16 History Simvastatin [Zocor] 40 mg PO DAILY 12/13/16 12/13/16 History Warfarin Sodium [Warfarin Sodium] 5 mg PO DAILY 12/13/16 12/13/16 History chlordiazePOXIDE HCl 10 mg PO TID 12/13/16 12/13/16 History [Chlordiazepoxide HCl] Allergies/Adverse Reactions: Allergies Allergy/AdvReac Type Severity Reaction Status Date / Time No Known Allergies Allergy Verified 12/13/16 11:50 Medical,Surgical,& Family Hx - Medical History Cardio: History of: CAD, Hypertension, ND, Valvular Heart Disease, Cardiovascular Problems No history of: Aneurysm, Cardiac Dysrhythmia, Cerebrovascular Disease, Congenital Heart Disease, CHF, Pacemaker, PVD Psychological: History of: Depression No history of: Anxiety Disorders, ADHD, Behavior Problems, Bipolar Disorder, Previous Suicide Attempt, Psychiatric/Substance Abuse Tx, Schizophrenia, Violent Behavior, Psychiatric Problems Neurology: History of: TIA No history of: Brain Aneurysm, Cerebral Hemorrhage, Cerebrovascular Accident , Cerebral Palsy, Dementia, Migraine, Multiple Sclerosis, Parkinson's Disease, Peripheral Neuropathy, Seizures, Vertigo, Neurologocal Cancer HEENT: History of: Eye Problem (NEAR SIGHTED FAR SIGHTED) No history of: Ear Problem, Dental Problems, Glaucoma, Oral Cancer, HEENT Problems Endocrine: History of: Diabetes Mellitus (NIDDM), Dyslipidemia No history of: Adrenal Disease, Diabetes Mellitus (IDDM), Thyroid Disorder, Endocrine Cancer, Endocrine Problems Rheumatology: No history of;: Fibromyalgia, Gout, Myasthenia Gravis, Psoriasis, Rheumatoid Arthritis, Sjogrens, Systemic Lupus Erythematosus, Rheumatological Problems Respiratory: No history of: Asthma, Bronchitis, COPD, Intubation, Obstructive Sleep Apnea (STATES THAT SHE WAS TESTED AT [facility] AND DOESNT HAVE DALLIN), Pulmonary Embolism, Pulmonary Hypertension, Pneumonia, Lung Cancer, Respiratory Problems Renal: No history of: Renal (Kidney) Cancer, Dialysis, Renal Failure, Renal Problems Genitourinary: History of: Kidney Stones No history of: Bladder Problem, Recurring Urinary Tract Infections, Genitourinary Cancer, Problems Gastrointestinal: History of: Diverticulitis/ Diverticulosis (left-sided diverticulosis), GERD, Gastrointestinal Bleed (multiple small bowel AVMs, or mild gastritis), Polyps (sigmoid hyperplastic polyps), GI Problems No history of: Bowel Obstruction, Clostridium Difficile, Crohn's Disease, Esophageal Varices, Hemorrhoids, Hematochezia, Hepatitis, Liver Problems, Pancreatitis, Ulcerative Colitis, Gastrointestinal Cancer Musculoskeletal: No history of: Amputation, Back/Neck Problems, Degenerative Disk Disease, Herniated Disk, Osteoporosis, Musculoskeletal Cancer, Musculoskeletal Problems Hematology: History of: Anemia No history of: Blood Transfusion Reaction, Bleeding Problems, Clotting Problems, Sickle Cell Disease, Hematologic Cancer, Blood Disorders Reproductive: No history of: Abnormal Pap Smear, Breast Cancer, Endometriosis, Ectopic , Ovarian Cysts, Complication, Sexually Transmitted Disorders , Reproductive Cancer, Reproductive Problems Other: No history of: Anesthesia Reactions, Anaphylaxis, Cancer, Eczema, HIV, Malignant Hyperthermia, MRSA, Vancomycin-Resistant Enterococci, Skin Problems, Miscellaneous Medical Problems - Surgical History Cardiac Surgeries: Sugical HX of: Cardiac Catheterization (with stents), Cardiac Surgery (bypass) Patient Denies: Femoral-Popliteal Bypass Graft, Carotid Endarterectomy, Internal Defibrillator, Vascular Access Devices Thoracic Surgeries: Patient denies;: Kidney (Renal Surgery), Lithotripsy, Nephrectomy, Organ Transplant, Lobectomy Neurologic Surgeries: Patient denies: Brain Aneurysm, Cerebral Hemorrhage, Neurologic Surgery HEENT Surgeries: Patient denies: Carotid Endarterectomy, Eye Surgery, Thyroid Surgery, Tonsilectomy & Adenoidectomy Abdominal Surgeries: Surgical HX of: Colonoscopy, EGD Patient denies: Abdominal Surgery, Appendectomy, Cholecystectomy, Gastric Bypass Surgery, Hernia Repair, Splenectomy Reproductive Surgeries: Surgical HX of;: Gynecologic Surgery, Hysterectomy Patient denies;: Breast Surgery, Section, Cystoscopy, Dilation and Curettage, Genitourinary Surgery, Tubal Ligation Orthopedic Surgeries: Patient denies;: Implanted Devices, Orthopedic Surgery, Spinal Surgery, Total Hip Replacement, Total Knee Replacement - Family History Family History: Reports;: Family Cancer (MOTHER CERVICAL), Family Stroke (FATHER ) Denies;: Family Anesthesia Reaction, Family Diabetes, Family Heart Disease, Family Hypertension, Family Psychiatric Problems - Social History Smoking Status: Current every day smoker Frequency of Alcohol Use: None Type of Drug Use: None Physical Examination Vital Signs Temp Pulse Resp BP Pulse Ox 97.8 F 88 18 113/73 98 12/13/16 11:32 12/13/16 11:32 12/13/16 11:32 12/13/16 11:32 12/13/16 11:32 Other: Physical examination: General: The patient is sleepy but responsive. HEENT: Normocephalic, sclera are clear there are no lid xanthelasmas noted. Oral mucosa is free of cyanosis or pallor. Neck: The neck is supple without JVD. Carotid upstrokes are normal volume and amplitude. There is no audible bruit. There is no palpable thyroid. Trachea is midline. Chest: Lungs: The patient is comfortable at rest without intercostal retractions or abdominal breathing. There are no adventitial sounds rales rubs rhonchi or wheezes noted. There are decreased breath sounds at the bases bilaterally. Cardiovascular: The PMI is nondisplaced. No palpable thrill S3 or S4. There is a regular rate and rhythm with no murmur rub or gallop noted. Dorsalis pedis posterior tibial and femoral pulses are 2+ and equal bilaterally. Metallic valve clicks are noted Abdomen: Abdomen is soft and nontender with normal active bowel sounds. There is no palpable mass or organomegaly noted. There is no midline bruit. Extremities exam: There is no cyanosis clubbing or edema. Skin: Skin is warm and dry without ecchymosis or urticaria or skin rash. There are no palpable nodules. Musculoskeletal: There is no kyphosis or scoliosis noted. Result/EKG - Labs CBC & BMP: 12/14/16 04:29 12/14/16 04:30 Labs: Laboratory Results - last 24 hr 12/13/16 12/13/16 12/13/16 11:57 12:21 12:21 WBC RBC Hgb Hct MCV MCH MCHC RDW Plt Count MPV Neut % (Auto) Lymph % (Auto) Bracken % (Auto) Eos % (Auto) Baso % (Auto) Neut # (Auto) Lymph # (Auto) Bracken # (Auto) Eos # (Auto) Baso # (Auto) Total Counted Immature Gran % Nucleated RBC % Immature Gran # Segmented Neutrophils Band Neutrophils Lymphocytes Monocytes Nucleated RBCs # Platelet Estimate Polychromasia Hypochromasia Microcytosis Target Cells Absolute Retic Percent Retic Retic Hgb Equivalent INR 2.8 PT Patient/Control Mix 31.4 D D-Dimer, Quantitative 6.0 Circ Anticoag PTT 41.2 H D Sodium 137 Potassium 5.2 H Chloride 99 Carbon Dioxide 22 Anion Gap 21.2 H BUN 78 H Creatinine 6.60 H GFR Calculation 8 BUN/Creatinine Ratio 11.00 Glucose 267 H POC Glucose Calculated Osmolality 304.8 H Lactic Acid Calcium 7.0 L Iron Ferritin Total Bilirubin 0.60 Direct Bilirubin Indirect Bilirubin AST 1315 H ALT 1769 H Alkaline Phosphatase 194 H Total Creatine Kinase 172 CK-MB (CK-2) 1.1 Troponin I 1.370 H Total Protein 6.7 Albumin 3.1 L Globulin 3.6 H Albumin/Globulin Ratio 0.8 L Vitamin B12 Folate Urine Color Gina Urine Appearance Cloudy Urine pH 5.0 Ur Specific Kinsley 1.014 Urine Protein 100 Urine Glucose (UA) Negative Urine Ketones Negative Urine Blood Moderate Urine Nitrate Negative Urine Bilirubin Negative Urine Urobilinogen 2.0 H Urine Leukocytes Large H Urine RBC 15 Urine WBC 210 Urine WBC Clumps Many Urine Bacteria Many Ur Culture Indicated? Results to follow Blood Type Antibody Screen Crossmatch 12/13/16 12/13/16 12/13/16 12:21 14:47 16:54 WBC 14.7 H RBC 3.39 L Hgb 8.4 L Hct 26.5 L MCV 78.2 L MCH 25 L MCHC 31.7 L RDW 19.4 H Plt Count 176 MPV 11.5 Neut % (Auto) 90.4 H Lymph % (Auto) 3.6 L Bracken % (Auto) 5.2 Eos % (Auto) 0.0 Baso % (Auto) 0.1 Neut # (Auto) 13.3 H Lymph # (Auto) 0.5 L Bracken # (Auto) 0.8 Eos # (Auto) 0.0 Baso # (Auto) 0.0 Total Counted Immature Gran % 0.7 Nucleated RBC % 0.2 Immature Gran # 0.10 Segmented Neutrophils Band Neutrophils Lymphocytes Monocytes Nucleated RBCs # 0.03 Platelet Estimate Adequate Polychromasia Slight Hypochromasia 2+ Microcytosis 1+ Target Cells Slight Absolute Retic Percent Retic Retic Hgb Equivalent INR PT Patient/Control Mix D-Dimer, Quantitative Circ Anticoag PTT Sodium Potassium Chloride Carbon Dioxide Anion Gap BUN Creatinine GFR Calculation BUN/Creatinine Ratio Glucose POC Glucose 276 H Calculated Osmolality Lactic Acid 1.9 Calcium Iron Ferritin Total Bilirubin Direct Bilirubin Indirect Bilirubin AST ALT Alkaline Phosphatase Total Creatine Kinase CK-MB (CK-2) Troponin I Total Protein Albumin Globulin Albumin/Globulin Ratio Vitamin B12 Folate Urine Color Urine Appearance Urine pH Ur Specific Kinsley Urine Protein Urine Glucose (UA) Urine Ketones Urine Blood Urine Nitrate Urine Bilirubin Urine Urobilinogen Urine Leukocytes Urine RBC Urine WBC Urine WBC Clumps Urine Bacteria Ur Culture Indicated? Blood Type Antibody Screen Crossmatch 12/13/16 12/14/16 12/14/16 20:48 04:29 04:30 WBC 15.2 H RBC 2.91 L Hgb 7.1 L Hct 22.9 L MCV 78.7 L MCH 24 L MCHC 31.0 L RDW 19.6 H Plt Count 170 MPV 12.9 H Neut % (Auto) 89.1 H Lymph % (Auto) 4.3 L Bracken % (Auto) 5.8 Eos % (Auto) 0.0 Baso % (Auto) 0.1 Neut # (Auto) 13.6 H Lymph # (Auto) 0.7 L Bracken # (Auto) 0.9 H Eos # (Auto) 0.0 Baso # (Auto) 0.0 Total Counted 100 Immature Gran % 0.7 Nucleated RBC % 0.4 Immature Gran # 0.10 Segmented Neutrophils 90 H Band Neutrophils 6 Lymphocytes 3 L Monocytes 1 L Nucleated RBCs # 0.06 Platelet Estimate Adequate Polychromasia Hypochromasia 2+ Microcytosis Slight Target Cells Absolute Retic Percent Retic Retic Hgb Equivalent INR PT Patient/Control Mix D-Dimer, Quantitative Circ Anticoag PTT Sodium 138 Potassium 5.2 H Chloride 100 Carbon Dioxide 24 Anion Gap 19.2 H BUN 93 H D Creatinine 7.00 H GFR Calculation 7 BUN/Creatinine Ratio 13.00 Glucose 133 H POC Glucose 272 H Calculated Osmolality 305.7 H Lactic Acid Calcium 6.7 L Iron Ferritin Total Bilirubin Direct Bilirubin Indirect Bilirubin AST ALT Alkaline Phosphatase Total Creatine Kinase CK-MB (CK-2) Troponin I Total Protein Albumin Globulin Albumin/Globulin Ratio Vitamin B12 Folate Urine Color Urine Appearance Urine pH Ur Specific Kinsley Urine Protein Urine Glucose (UA) Urine Ketones Urine Blood Urine Nitrate Urine Bilirubin Urine Urobilinogen Urine Leukocytes Urine RBC Urine WBC Urine WBC Clumps Urine Bacteria Ur Culture Indicated? Blood Type Antibody Screen Crossmatch 12/14/16 12/14/16 12/14/16 06:47 07:54 09:24 WBC RBC Hgb Hct MCV MCH MCHC RDW Plt Count MPV Neut % (Auto) Lymph % (Auto) Bracken % (Auto) Eos % (Auto) Baso % (Auto) Neut # (Auto) Lymph # (Auto) Bracken # (Auto) Eos # (Auto) Baso # (Auto) Total Counted Immature Gran % Nucleated RBC % Immature Gran # Segmented Neutrophils Band Neutrophils Lymphocytes Monocytes Nucleated RBCs # Platelet Estimate Polychromasia Hypochromasia Microcytosis Target Cells Absolute Retic 0.0 Percent Retic 1.3 Retic Hgb Equivalent 18.2 L INR PT Patient/Control Mix D-Dimer, Quantitative Circ Anticoag PTT Sodium Potassium Chloride Carbon Dioxide Anion Gap BUN Creatinine GFR Calculation BUN/Creatinine Ratio Glucose POC Glucose 161 H Calculated Osmolality Lactic Acid Calcium Iron Ferritin Total Bilirubin Direct Bilirubin Indirect Bilirubin AST ALT Alkaline Phosphatase Total Creatine Kinase CK-MB (CK-2) Troponin I 1.430 H Total Protein Albumin Globulin Albumin/Globulin Ratio Vitamin B12 Folate Urine Color Urine Appearance Urine pH Ur Specific Kinsley Urine Protein Urine Glucose (UA) Urine Ketones Urine Blood Urine Nitrate Urine Bilirubin Urine Urobilinogen Urine Leukocytes Urine RBC Urine WBC Urine WBC Clumps Urine Bacteria Ur Culture Indicated? Blood Type Antibody Screen Crossmatch 12/14/16 12/14/16 12/14/16 09:24 09:24 09:24 WBC RBC Hgb Hct MCV MCH MCHC RDW Plt Count MPV Neut % (Auto) Lymph % (Auto) Bracken % (Auto) Eos % (Auto) Baso % (Auto) Neut # (Auto) Lymph # (Auto) Bracken # (Auto) Eos # (Auto) Baso # (Auto) Total Counted Immature Gran % Nucleated RBC % Immature Gran # Segmented Neutrophils Band Neutrophils Lymphocytes Monocytes Nucleated RBCs # Platelet Estimate Polychromasia Hypochromasia Microcytosis Target Cells Absolute Retic Percent Retic Retic Hgb Equivalent INR PT Patient/Control Mix D-Dimer, Quantitative Circ Anticoag PTT Sodium Potassium Chloride Carbon Dioxide Anion Gap BUN Creatinine GFR Calculation BUN/Creatinine Ratio Glucose POC Glucose Calculated Osmolality Lactic Acid Calcium Iron 8 L Ferritin 81.4 Total Bilirubin 0.40 Direct Bilirubin 0.20 Indirect Bilirubin 0.2 AST 274 H ALT 1177 H Alkaline Phosphatase 154 H Total Creatine Kinase CK-MB (CK-2) Troponin I Total Protein 6.1 L Albumin 2.7 L Globulin Albumin/Globulin Ratio Vitamin B12 1098 H Folate > 24.0 H Urine Color Urine Appearance Urine pH Ur Specific Kinsley Urine Protein Urine Glucose (UA) Urine Ketones Urine Blood Urine Nitrate Urine Bilirubin Urine Urobilinogen Urine Leukocytes Urine RBC Urine WBC Urine WBC Clumps Urine Bacteria Ur Culture Indicated? Blood Type Antibody Screen Crossmatch 12/14/16 12/14/16 09:24 Unknown WBC RBC Hgb Hct MCV MCH MCHC RDW Plt Count MPV Neut % (Auto) Lymph % (Auto) Bracken % (Auto) Eos % (Auto) Baso % (Auto) Neut # (Auto) Lymph # (Auto) Bracken # (Auto) Eos # (Auto) Baso # (Auto) Total Counted Immature Gran % Nucleated RBC % Immature Gran # Segmented Neutrophils Band Neutrophils Lymphocytes Monocytes Nucleated RBCs # Platelet Estimate Polychromasia Hypochromasia Microcytosis Target Cells Absolute Retic Percent Retic Retic Hgb Equivalent INR PT Patient/Control Mix D-Dimer, Quantitative Circ Anticoag PTT Sodium Potassium Chloride Carbon Dioxide Anion Gap BUN Creatinine GFR Calculation BUN/Creatinine Ratio Glucose POC Glucose Calculated Osmolality Lactic Acid Calcium Iron Ferritin Total Bilirubin Direct Bilirubin Indirect Bilirubin AST ALT Alkaline Phosphatase Total Creatine Kinase 171 CK-MB (CK-2) Troponin I Total Protein Albumin Globulin Albumin/Globulin Ratio Vitamin B12 Folate Urine Color Urine Appearance Urine pH Ur Specific Kinsley Urine Protein Urine Glucose (UA) Urine Ketones Urine Blood Urine Nitrate Urine Bilirubin Urine Urobilinogen Urine Leukocytes Urine RBC Urine WBC Urine WBC Clumps Urine Bacteria Ur Culture Indicated? Blood Type A POSITIVE Antibody Screen Negative Crossmatch See Detail
[2016-12-14] MEDS: amLODIPine 5 MG TABLET PO SCH (11:34)
--- NOTE | 2016-12-14 11:34 | ECHO Report ---
Virginia Yañez Exam Date: 12/14/2016 09:42 Referring Physician: Technologist: Venita Espitia Age: 66 Ht (in): 62 Wt (lb): 192 Gender: F Exam Location: [facility] Echo Indications: Hx. AVR, elevated troponin, weakness, dehydration, hyperkalemia, UTI BP: 121 / 64 HR: 85 Rhythm: Sinus Technical Quality: IMPRESSIONS Mild left ventricular hypertrophy. Moderately decreased left ventricular systolic function, left ventricular ejection fraction is estimated at 30%. Mildly increased right ventricular size. The right atrium is mildly enlarged. Severely increased left atrial diameter. Prosthetic mitral valve mean gradient is 4.5 mmHg. Trace mitral valve regurgitation. Mild aortic valve sclerosis. Morphologically normal tricuspid valve. Moderate tricuspid valve regurgitation. Tricuspid regurgitation velocities suggest a PAP of 46 mmHg. Morphologically normal pulmonic valve. No pericardial effusion. Normal size aortic root and proximal ascending aorta. MEASUREMENTS (Male / Female) Normal Values 2D ECHO LV Diastolic Diameter PLAX 4.8 cm 4.2 - 5.9 / 3.9 - 5.3 cm LV Systolic Diameter PLAX 4.0 cm LV Fractional Shortening PLAX 15.8 % IVS Diastolic Thickness 1.4 cm 0.6 - 1.0 / 0.6 - 0.9 cm LVPW Diastolic Thickness 1.2 cm 0.6 - 1.0 / 0.6 - 0.9 cm RV Internal Dim ED PLAX 3.0 cm Aortic Root Diameter 2.8 cm LA Systolic Diameter LX 4.7 cm 3.0 - 4.0 / 2.7 - 3.8 cm DOPPLER Mitral E to A Ratio 2.4 TR Peak Velocity 300.0 cm/s TR Peak Gradient 36.0 mmHg FINDINGS Left Ventricle Mild left ventricular hypertrophy. Moderately decreased left ventricular systolic function, left ventricular ejection fraction is estimated at 30%. Right Ventricle Mildly increased right ventricular size. Right Atrium The right atrium is mildly enlarged. Left Atrium Severely increased left atrial diameter. Mitral Valve Prosthetic mitral valve mean gradient is 4.5 mmHg. Trace mitral valve regurgitation. Aortic Valve Mild aortic valve sclerosis. Tricuspid Valve Morphologically normal tricuspid valve. Moderate tricuspid valve regurgitation. Tricuspid regurgitation velocities suggest a PAP of 46 mmHg. Pulmonic Valve Morphologically normal pulmonic valve. Pericardium No pericardial effusion. Aorta Normal size aortic root and proximal ascending aorta. Henrik Gant MD (Electronically Signed) Final Date: 14 December 2016 11:33
--- NOTE | 2016-12-14 13:21 | Hospitalist Progress Note ---
Assessment and Plan - Time spent with patient Time spent with patient: Greater than 30 minutes (1) Encephalopathy acute Status: Acute Assessment and plan: Mutifactorial, infectious and metabolic. Obtain an ammonia level. Unable to perform MRI due to mechanical valve. Current Visit: Yes (2) Abdominal pain Status: Acute Assessment and plan: This may be secondary to the patient's overall illness and abdominal ultrasound revealed no acute findings. Will obtain an amylase and lipase. Place the patient on PPI. Will consider a CT of the abdomen if the abdominal pain persists. Current Visit: Yes (3) HIRO (acute kidney injury) Status: Acute Assessment and plan: With azotemia. I suspect this is likely dehydration secondary to reduced oral intake due to encephalopathy. Furthermore patient was on furosemide. Hold nephrotoxic medications. Consult nephrology, defer to them. Current Visit: Yes (4) Urinary retention Status: Acute Assessment and plan: Intermitted catheterizations, Urology consulted, appreciate their recommendations. Current Visit: Yes (5) Elevated liver enzymes Status: Acute Assessment and plan: Right upper quadrant ultrasound revealed no evidence of disease, will consult gastroenterology. This may represent hepatic shock in the setting of dehydration. Current Visit: Yes (6) Elevated troponin Status: Acute Assessment and plan: Cardiology has been consulted, defer to them. Current Visit: Yes (7) H/O mitral valve replacement with mechanical valve Status: Acute Assessment and plan: Patient has anemia and I suspect acute blood loss secondary to potential GI bleed. Anticoagulation is being held and anemia panel has been drawn and stool studies to assess for the presence of blood. Current Visit: Yes (8) Hyperkalemia Status: Acute Assessment and plan: Due to acute kidney injury. Current Visit: Yes (9) Pneumonia Status: Acute Assessment and plan: Start antibiotics. Current Visit: Yes (10) UTI (urinary tract infection) Status: Acute Assessment and plan: Start antibiotics. Current Visit: Yes (11) Congestive heart failure Status: Acute Current Visit: No (12) Positive blood cultures Status: Acute Assessment and plan: GNR, zosyn and levaquin. Current Visit: Yes (13) Anemia Status: Acute Assessment and plan: We will start the patient on PPI and consult gastroenterology. Will transfuse 2 units. Heme occult. see above. Current Visit: Yes Hospitalist: Subjective Interval history: Complains of abdominal pain. States that his left upper quadrant epigastric and right upper quadrant. Exam - Constitutional Vitals: Period Temp Pulse Resp BP Sys/Eli Pulse Ox Last 24 Hr 97.4 F-98.1 F 77-98 16-20 98-140/59-76 89-100 General appearance: no acute distress, over weight - Head Head exam: Present: normal inspection, normocephalic, atraumatic - Eye Eye exam: Present: EOMI Pupils: Present: IRWIN - ENT ENT exam: Present: normal exam - Neck Neck exam: Present: normal inspection - Respiratory Respiratory exam: Present: other (Coarse breath sounds at the bases). Absent: wheezes - Cardiovascular Cardiovascular exam: Present: regular rate and rhythm, systolic murmur. Absent : gallop, rubs - GI/Abdominal GI/Abdominal exam: Present: normal bowel sounds, soft. Absent: distended, firm , guarding, tenderness, rebound - Extremities Exam Extremities exam: Present: normal inspection. Absent: calf tenderness, edema Results - Labs CBC & BMP: 12/14/16 04:29 12/14/16 04:30 Lab Results: I have reviewed the past 24 hour labs
--- NOTE | 2016-12-14 13:35 | Urology Progress Note ---
Urology - PN: Subj Interval history: Thanks for calling Full consult dictated A: Dec UOP Difficulty Voiding ARF P: Intermittent bladder cath - prn inability to void UOP will likely improve with hydration Urology following Exam - Constitutional Vitals: Period Temp Pulse Resp BP Sys/Eli Pulse Ox Last 24 Hr 97.4 F-98.1 F 77-98 16-20 98-140/55-76 89-100 Results - Labs CBC & BMP: 12/14/16 04:29 12/14/16 04:30
[2016-12-14 14:09] LABS: Apearance,Urine Slightly Hazy (Clear); Bacteria,Urine Occasional /HPF (Few); Bilirubin,Urine Negative (Negative); Blood, Urine Moderate mg/dL (Negative); Glucose,Urine (UA) Negative (Negative); Ketones,Urine Negative (Negative); Nitrite,Urine Negative (Negative); Protein,Urine 100 MG/DL; RBC,Urine 1 /HPF (0-4); Urine Color Amber (Yellow); Urine Specific Gravity 1.014 (1.001-1.035); Urine Urobilinogen < 2.0 EU/DL (0.2-1.0); WBC,Urine 3 /HPF (0-6)
[2016-12-14] MEDS: THIAMINE IV SCH ×2 (15:45→20:22)
[2016-12-14] MEDS: MULTIVITAMIN IV SCH ×2 (15:45→20:22)
[2016-12-14] MEDS: DEXTROSE IV SCH ×2 (15:45→20:22)
[2016-12-14] MEDS: PANTOPRAZOLE 40 MG VIAL IV SCH ×2 (17:55→20:23)
[2016-12-14] MEDS ORDERED: WARFARIN 5 MG TABLET PO SCH (18:00)
--- NOTE | 2016-12-14 18:05 | EKG Report ---
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
[2016-12-14] MEDS: PIPERACILLIN/TAZOBACTAM 3,375 MG in SODIUM CHLORIDE 0.9% 100 ML IV SCH (18:08)
--- NOTE | 2016-12-14 19:07 | Consultation ---
DATE OF CONSULT: 12/14/2016 REASON FOR CONSULTATION: 1. Inability to urinate. 2. Decreased urine output. Thank you for asking Urology Service to see Ms. Yañez. HISTORY OF PRESENT ILLNESS: Ms. Yañez is a 66-year-old female who was admitted yesterday with f ailure to thrive and mental status changes. I spoke to the admitting physician, Dr. Sánchez, regarding her admission. Ms. Yañez is currently being admitted for acute pneumonia along with s epsis. Blood cultures are preliminarily positive. Urinalysis on admission showed an infection, for which she was started on Rocephin. She has baseline renal insufficiency, but on admission her creati nine was 6.6 without any hydronephrosis. She has a history of diabetes as well. I spoke to the daughter. She was concerned that her mother had not voided since 6 o'clock p.m. yeste rday. About 30 minutes ago, the nurses performed a bladder scan, which showed about 400 mL residual. Intermittent catheterization showed a residual of 300 mL. This was the first time she has been cat heterized by the daughter's report. Past medical, surgical, social, and family history reviewed and on the chart. See the H and P. REVIEW OF SYSTEMS: Not obtained due to somnolence. All questions were answered by the daughter. PHYSICAL EXAMINATION GENERAL: A well-developed, well-nourished female, in no acute distress. She is somnolent and answer s questions very slowly. HEENT: Normocephalic, atraumatic. NECK: No JVD. CHEST: Expands bilaterally. ABDOMEN: Soft, nontender, nondistended, obese. SKIN: Warm and dry. NEURO: Nonfocal. EXAM: Deferred. LAB WORK: Renal ultrasound was reviewed showing no evidence of hydronephrosis. Creatinine was 6.6 o n admission and is now 7.0. I explained to the patient as well as the daughter that she has acute renal failure and this is likel y the cause of her decreased urine output. Although a residual of about 350 mL is on the high end, s he is not ambulatory at this time and a residual of this amount is probably acceptable. The daughter was concerned about her inability to urinate and I explained that this is probably not an inability to urinate, but more so a problem of decreased urine output due to acute renal insufficiency. With bobo phamle hydration and treatment of sepsis, I suspect her urine output will improve. In the meantime, I recommend intermittent catheterization p.r.n. if unable to urinate. This will also get better when she is more ambulatory. With her history of diabetes, she may have a component of neurogenic bladder , which can certainly be evaluated as an outpatient with urodynamics. IMPRESSION: 1. ACUTE ON CHRONIC RENAL INSUFFICIENCY. 2. OLIGURIA. 3. URINARY TRACT INFECTION, POSSIBLE UROSEPSIS. PLAN: 1. Continue IV antibiotics. 2. Transfusion is in progress. 3. Gentle hydration is in progress. 4. Recommend intermittent bladder catheterization as needed for inability to urinate. 5. Encourage ambulation when possible. 6. She will eventually need urodynamics if bladder function does not improve. Dr. Gonzalez will resume care for Ms. Yañez starting tomorrow. CC:
[2016-12-14 21:59] LABS: Hematocrit 27.5 VOL% (35.7-47.0)
[2016-12-14 22:00] LABS: Hemoglobin 8.7 GM/DL (12.0-16.0)
[2016-12-15] MEDS: PIPERACILLIN/TAZOBACTAM 3,375 MG in SODIUM CHLORIDE 0.9% 100 ML IV SCH ×2 (02:43→15:36)
[2016-12-15] MEDS: SODIUM CHLORIDE 0.9% 1,000 ML IV SCH ×2 (02:44→08:12)
[2016-12-15] MEDS: THIAMINE IV SCH ×2 (04:24→12:57)
[2016-12-15] MEDS: DEXTROSE IV SCH ×2 (04:24→12:57)
[2016-12-15] MEDS: MULTIVITAMIN IV SCH ×2 (04:24→12:57)
[2016-12-15 05:04] LABS: Basophils % 0.1 % (0.0-0.8); Eosinophils % 0.1 % (0.00-10.9); Hematocrit 27.7 VOL% (35.7-47.0); Hemoglobin 8.6 GM/DL (12.0-16.0); Immature Granulocytes % 0.5 %; Immature Granulocytes Absolute 0.05 #; Lymphocytes # 0.5 10*3/uL (1.4-4.0); Lymphocytes % 5.3 % (21.3-54.2); Mean Corpuscular Hemoglobin 25 PG (27-34); Mean Corpuscular Volume 81.2 FL (87-102); Monocytes # 0.7 10*3/uL (0.11-0.8); Monocytes % 7.1 % (1.7-12.7); NRBC # 0.08 10*3/uL; Neutrophils # 8.5 10*3/uL (1.4-7.4); Neutrophils % 86.9 % (38.7-73.9); Platelet Count 157 T/CUMM (130-400); Red Blood Count 3.41 MC/CUMM (3.8-5.5); Red Cell Distribution Width 20.5 % (9.3-17.3); White Blood Count 9.8 T/CUMM (4-12)
[2016-12-15 05:32] LABS: Albumin 2.5 G/DL (3.4-5.0); Bilirubin,Direct 0.2 MG/DL (0.0-0.20); Bilirubin,Indirect 0.5 MG/DL (0.0-1.0); Bilirubin,Total 0.7 MG/DL (0.2-1.0); Calcium 6.5 MG/DL (8.5-10.1); Osmolality,Calculated 304.1 MOS/KG (273-304); Potassium 5.6 MMOL/L (3.5-5.1); Total Protein 5.7 G/DL (6.4-8.3)
[2016-12-15 05:54] LABS: Burr Cells Slight; Hypochromasia 1+; Platelet Estimate Normal
[2016-12-15 05:55] LABS: Microcytosis Slight; Ovalocytes Slight
[2016-12-15] MEDS: INSULIN LISPRO 100 UNIT/ML SUBCUT SCH ×4 (08:58→21:31)
[2016-12-15] MEDS: LEVOTHYROXINE 75 MCG TABLET PO SCH (09:00)
[2016-12-15] MEDS: AMITRIPTYLINE 25 MG TABLET PO SCH (09:00)
[2016-12-15] MEDS: ISOSORBIDE MONONITRATE 60 MG TABLET PO SCH ×2 (09:00→21:31)
[2016-12-15] MEDS: amLODIPine 5 MG TABLET PO SCH (09:00)
[2016-12-15] MEDS: PANTOPRAZOLE 40 MG VIAL IV SCH ×2 (09:03→21:32)
[2016-12-15 10:07] LABS: Hematocrit 27.6 VOL% (35.7-47.0); Hemoglobin 8.6 GM/DL (12.0-16.0)
--- NOTE | 2016-12-15 11:23 | Hospitalist Progress Note ---
Assessment and Plan - Time spent with patient Time spent with patient: Greater than 30 minutes (1) Encephalopathy acute Status: Acute Assessment and plan: Mutifactorial, infectious and metabolic. Ammonia level normal. Unable to perform MRI due to mechanical valve. Current Visit: Yes (2) Sepsis Status: Acute Assessment and plan: Continue current management. Improving. Current Visit: Yes (3) Pneumonia Status: Acute Assessment and plan: Continue antibiotics. Current Visit: Yes (4) UTI (urinary tract infection) Status: Acute Assessment and plan: Continue antibiotics. Current Visit: Yes (5) Abdominal pain Status: Acute Assessment and plan: Amylase and lipase normal. Improving. Continue PPI. Will consider a CT of the abdomen if the abdominal pain persists. Current Visit: Yes (6) HIRO (acute kidney injury) Status: Acute Assessment and plan: With azotemia. Worsening despite fluids. Will discontinue fluids and I appreciate nephrology's assistance with this. Current Visit: Yes (7) Urinary retention Status: Acute Assessment and plan: Intermitted catheterizations, Urology consulted, appreciate their recommendations. Current Visit: Yes (8) Elevated liver enzymes Status: Acute Assessment and plan: Likely secondary to shock liver due to hypotension possibly from sepsis. Levels are dramatically improving. Current Visit: Yes (9) Elevated troponin Status: Acute Assessment and plan: Cardiology has been consulted, defer to them. Current Visit: Yes (10) H/O mitral valve replacement with mechanical valve Status: Acute Assessment and plan: Patient has anemia and I suspect acute blood loss secondary to potential GI bleed. Anticoagulation is being held and anemia panel has been drawn and stool studies to assess for the presence of blood. Current Visit: Yes (11) Hyperkalemia Status: Acute Assessment and plan: Due to acute kidney injury. Current Visit: Yes (12) Congestive heart failure Status: Acute Assessment and plan: Chest x-ray confirms mild exacerbation and echocardiogram reveals systolic dysfunction. Current Visit: No (13) Positive blood cultures Status: Acute Assessment and plan: GNR, zosyn and levaquin. Current Visit: Yes (14) Anemia Status: Acute Assessment and plan: We will start the patient on PPI and consult gastroenterology. Will transfuse 2 units. Heme occult. see above. Current Visit: Yes Hospitalist: Subjective Interval history: Patient's mentation is mildly better from yesterday. She reports improving abdominal pain. Overnight she complained of chest pain had an EKG showed no evidence of ACS. Exam - Constitutional Vitals: Period Temp Pulse Resp BP Sys/Eli Pulse Ox Last 24 Hr 97.0 F-98.1 F 76-98 16-20 94-113/49-76 91-100 General appearance: no acute distress, over weight - Head Head exam: Present: normocephalic, atraumatic - Eye Eye exam: Present: EOMI Pupils: Present: IRWIN - ENT ENT exam: Present: normal exam - Neck Neck exam: Present: normal inspection - Respiratory Respiratory exam: Present: other (Coarse breath sounds bilaterally). Absent: rhonchi, wheezes - Cardiovascular Cardiovascular exam: Present: regular rate and rhythm, systolic murmur. Absent : gallop, rubs - GI/Abdominal GI/Abdominal exam: Present: normal bowel sounds, soft. Absent: distended, firm , guarding, tenderness, rebound - Extremities Exam Extremities exam: Present: normal inspection. Absent: calf tenderness, edema - Neurological Exam Neurological exam: Present: other (Lethargy and somnolence) Results - Labs CBC & BMP: 12/15/16 09:49 12/15/16 02:39 Lab Results: I have reviewed the past 24 hour labs
--- NOTE | 2016-12-15 12:00 | XRay Report ---
Portable chest Date: 12/15/2016 Clinical history: Pneumonia Comparison: 12/13/2016 Technique: Portable AP sitting chest Findings: Stable cardiomegaly with prior median sternotomy. Progressive diffuse parenchymal findings with small pleural effusions. Stable mediastinum and osseous structures. Impression: Progressive bilateral pneumonia with associated atelectasis, possible interstitial edema, and small bilateral pleural effusions. Status post median sternotomy with persistent cardiomegaly. PROCEDURE INTERPRETED AT [facility] DEPARTMENT OF RADIOLOGY Final Report Signed by: Dr. Sabina Gracia
--- NOTE | 2016-12-15 12:46 | Nephrology Progress Note ---
Nephrology - PN: Subj Interval history: Patient denies shortness of breath. Review of systems General-patient feels poorly, GI she denies nausea or vomiting, pulmonary she denies shortness of breath Physical exam general the patient is chronically ill-appearing, she has no pitting edema Assessment/plan 1. Acute renal failure on chronic renal failure-this patient's creatinine is increased 7 mg/dL, I suspect she has an ATN injury related to her bacteremia and infection, will continue to monitor creatinine 2. Anemia 3. Pneumonia 4. UTI-we will continue antibiotics Exam (PN)-Nephrology - Vital Signs Vital signs: Period Temp Pulse Resp BP Sys/Eli Pulse Ox Last 24 Hr 97.0 F-98.1 F 76-98 16-20 94-116/49-76 91-100 - Lab 12/15/16 09:49 12/15/16 02:39 Most recent lab results Calcium 6.5 MG/DL (8.5-10.1) L 12/15/16 02:39 Assessment and Plan (1) Acute renal failure Status: Acute Assessment and plan: This patient has some baseline chronic renal insufficiency related to diabetes and hypertension, and now has acute renal failure with a creatinine of around 7 mg/dL, this may be related to poor p.o. intake, as well as her infection with her UTI and possible occult hypoperfusion and hypotension related to her anemia. Will check a fractional excretion of urea nitrogen and sodium, I am going to start her on some IV fluids will also check a renal ultrasound and a bladder scan for urinary retention. Current Visit: Yes (2) Anemia Status: Acute Assessment and plan: I would have a low threshold for transfusing her. Current Visit: Yes (3) Elevated liver enzymes Status: Acute Assessment and plan: This may go along with some occult hypotension and shock liver Current Visit: Yes (4) Generalized weakness Status: Acute Current Visit: Yes (5) History of prosthetic mitral valve Status: Acute Current Visit: Yes (6) Pneumonia Status: Acute Assessment and plan: I agree with IV antibiotics Current Visit: Yes (7) UTI (urinary tract infection) Status: Acute Current Visit: Yes
--- NOTE | 2016-12-15 13:07 | Cardiology Progress Note ---
Caden James Vanessa, RN, am scribing for, and in the presence of, Jesus Lazaro MD 13:01. Assessment and Plan - Time spent with patient Time spent with patient: Greater than 30 minutes (1) Elevated troponin Status: Acute Assessment and plan: EKG negative for ischemic finding. There is certainly no evidence of an acute ischemic cardiac event. Troponin level peaked at 1.43 in the face of acute renal failure with creatinine of 7.0. Current Visit: Yes (2) HIRO (acute kidney injury) Status: Acute Assessment and plan: History of some underlying chronic renal insufficiency with episode of acute renal failure at this time. Nephrology is also following. Creatinine today is 7.3. Current Visit: Yes (3) Anemia Status: Acute Assessment and plan: Transfuse with 2 units PRBCs on December 14 with H&H of 7.1/22.9. Posttransfusion today is 8.6/27.6. Current Visit: Yes (4) Abdominal pain Status: Acute Current Visit: Yes (5) Chronic GI bleeding Status: Chronic Assessment and plan: History of recurrent GI bleed with AVM in the past while on dual antibiotic therapy (i.e. Plavix, Brilinta with aspirin). Coumadin is currently on hold due to anemia. Because of this patient's mechanical mitral valve she certainly will need chronic anticoagulation with warfarin. Current Visit: Yes (6) Elevated liver enzymes Status: Acute Assessment and plan: This has improved since admission current AST 135, ALT 878. Current Visit: Yes (7) H/O mitral valve replacement with mechanical valve Status: Chronic Assessment and plan: Appears to be stable. She will require chronic anticoagulation with warfarin. Current Visit: Yes (8) Hyperkalemia Status: Acute Assessment and plan: Potassium is 5.6. May be related to her renal insufficiency. Current Visit: Yes (9) Pneumonia Status: Acute Assessment and plan: She is on IV antibiotic therapy. Current Visit: Yes (10) Positive blood cultures Status: Acute Assessment and plan: Currently on IV antibiotics. Blood cultures with gram-negative rods. Current Visit: Yes (11) Sepsis Status: Acute Current Visit: Yes (12) UTI (urinary tract infection) Status: Acute Assessment and plan: Urine culture with gram-negative rods. Current Visit: Yes (13) Chronic anticoagulation Status: Acute Assessment and plan: Chronically anticoagulated with Coumadin. INR 2.8 on December 13. At present she is not on warfarin but needs to be started back on this as soon as possible. It is understood that she has had some GI bleeding. Current Visit: No Cardiology - PN: Subj Interval history: PRIMARY ANIMATOR: DR. 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 Yañez is a 66-year-old white female with risk factor significant hypertension, diabetes, dyslipidemia, previously known history of CAD, current smoker. Past medical history includes mechanical mitral valve placement, myocardial infarction, multiple previously placed coronary artery stents, and coronary artery bypass grafting 3, hypothyroidism. She is on chronic warfarin therapy. She has been noted to have had difficulty with recurrent GI bleeding with AVMs on dual antiplatelet therapy. Patient also has a history of acute combined systolic and diastolic congestive heart failure, NYHA class III. Patient presented to [facility] ER on December 13 complaining of generalized weakness with chest pain. Diagnostic workup revealed pneumonia, UTI, and acute renal failure with creatinine of 6.6. Of note, patient previously had a creatinine of 1.7 in July 2016. Blood culture with gram-negative rods and urine culture also with gram-negative rods. She has been transfused with 2 units PRBCs for H&H 7.1/22.9 on December 14, and posttransfusion H&H 8.6/27.6. Cardiology asked to see for chest pain with troponin level. At admission, patient had serial troponin levels with troponin 1.370, 1.430, and 1.200. EKG negative for acute ischemic finding. Echocardiogram on December 13 with mild LVH, moderately decreased LV systolic function with EF of 30%, mildly increased to an RA, severely increased LA, moderate TR with PA pressure 46 mmHg. December: Ms. Yañez is resting quietly in bed. Her daughter is present with her at bedside. Patient is somnolent and drowsy but does offer verbal response. Denies chest pain or shortness of breath. She does not appear to be orthopneic or any acute distress. No overt abdominal pain, but there is some tenderness with palpation. Labs reviewed. WBC 9800. H&H 8.6/27.7. Sodium 135. Potassium up to 5.6, creatinine continues to increase in a 7.3 with GFR 13. Ammonia level normal at 14. AST 135, ALT 878 (AST 1315, ALT 1769 on admission) . Generally from cardiac standpoint she is doing fairly well. Exam (Progress Note) - Constitutional Vitals: Period Temp Pulse Resp BP Sys/Eli Pulse Ox Last 24 Hr 97.0 F-98.1 F 76-98 16-20 94-116/49-76 91-100 General appearance: no acute distress, morbidly obese, other (Somnolent) Exam: General: No acute distress. Morbidly obese. The patient is drowsy but is responsive. HEENT: Normocephalic, sclera are clear there are no lid xanthelasmas noted. Oral mucosa is free of cyanosis or pallor. Neck: The neck is supple without JVD. Carotid upstrokes are normal volume and amplitude. There is no audible bruit. There is no palpable thyroid. Trachea is midline. Lungs: Coarse lung sounds bilaterally without rales, rhonchi, or wheezes noted. There are decreased breath sounds at the bases bilaterally. Cardiovascular: The PMI is nondisplaced. No palpable thrill S3 or S4. There is a regular rate and rhythm with no murmur, rub, or gallop noted. Dorsalis pedis posterior tibial and femoral pulses are 2+ and equal bilaterally. Mechanical valve clicks are noted. Abdomen: Abdomen is soft with normal active bowel sounds. Tenderness with palpation. There is no palpable mass or organomegaly noted. There is no midline bruit. Extremities exam: Present: 1+ pedal and pretibial edema. Absent: Cyanosis, clubbing. Skin: Present: warm and dry without ecchymosis, urticaria, skin rash, or suspicious lesion. Psych: Patient is not anxious. She is drowsy but responsive, and she is somnolent when awake. Musculoskeletal: There is no kyphosis or scoliosis noted. - Head Head exam: Absent: abrasion, contusion Result/EKG - Labs CBC & BMP: 12/15/16 09:49 12/15/16 02:39 Lab Results: I have reviewed the past 24 hour labs Labs: Laboratory Results - last 24 hr 12/14/16 12/14/16 12/14/16 11:30 13:00 13:00 WBC RBC Hgb Hct MCV MCH MCHC RDW Plt Count MPV Neut % (Auto) Lymph % (Auto) Mower % (Auto) Eos % (Auto) Baso % (Auto) Neut # (Auto) Lymph # (Auto) Mower # (Auto) Eos # (Auto) Baso # (Auto) Immature Gran % Nucleated RBC % Immature Gran # Nucleated RBCs # Platelet Estimate Hypochromasia Microcytosis Ovalocytes Jennie Cells Morphology Comment Sodium Potassium Chloride Carbon Dioxide Anion Gap BUN Creatinine GFR Calculation BUN/Creatinine Ratio Glucose POC Glucose Calculated Osmolality Calcium Total Bilirubin Direct Bilirubin Indirect Bilirubin AST ALT Alkaline Phosphatase Ammonia Troponin I 1.200 H Total Protein Albumin Amylase Lipase Urine Color Gina Urine Appearance Slightly hazy Urine pH 6.0 Ur Specific [place] 1.014 Urine Protein 100 Urine Glucose (UA) Negative Urine Ketones Negative Urine Blood Moderate Urine Nitrate Negative Urine Bilirubin Negative Urine Urobilinogen < 2.0 H Urine Leukocytes Trace Urine RBC 1 Urine WBC 3 Urine Bacteria Occasional Ur Culture Indicated? Not indicated Urine Myoglobin Ur Random Creatinine Ur Random Sodium Ur Random Urea Nitrogn 312 Blood Type Antibody Screen Crossmatch Post-Trans DYLLAN Poly 12/14/16 12/14/16 12/14/16 13:00 13:00 13:00 WBC RBC Hgb Hct MCV MCH MCHC RDW Plt Count MPV Neut % (Auto) Lymph % (Auto) Mower % (Auto) Eos % (Auto) Baso % (Auto) Neut # (Auto) Lymph # (Auto) Mower # (Auto) Eos # (Auto) Baso # (Auto) Immature Gran % Nucleated RBC % Immature Gran # Nucleated RBCs # Platelet Estimate Hypochromasia Microcytosis Ovalocytes Jennie Cells Morphology Comment Sodium Potassium Chloride Carbon Dioxide Anion Gap BUN Creatinine GFR Calculation BUN/Creatinine Ratio Glucose POC Glucose Calculated Osmolality Calcium Total Bilirubin Direct Bilirubin Indirect Bilirubin AST ALT Alkaline Phosphatase Ammonia Troponin I Total Protein Albumin Amylase Lipase Urine Color Urine Appearance Urine pH Ur Specific [place] Urine Protein Urine Glucose (UA) Urine Ketones Urine Blood Urine Nitrate Urine Bilirubin Urine Urobilinogen Urine Leukocytes Urine RBC Urine WBC Urine Bacteria Ur Culture Indicated? Urine Myoglobin Negative Ur Random Creatinine 174 Ur Random Sodium 24.0 Ur Random Urea Nitrogn Blood Type Antibody Screen Crossmatch Post-Trans DYLLAN Poly 12/14/16 12/14/16 12/14/16 13:03 16:57 18:30 WBC RBC Hgb Hct MCV MCH MCHC RDW Plt Count MPV Neut % (Auto) Lymph % (Auto) Mower % (Auto) Eos % (Auto) Baso % (Auto) Neut # (Auto) Lymph # (Auto) Mower # (Auto) Eos # (Auto) Baso # (Auto) Immature Gran % Nucleated RBC % Immature Gran # Nucleated RBCs # Platelet Estimate Hypochromasia Microcytosis Ovalocytes Jennie Cells Morphology Comment Sodium Potassium Chloride Carbon Dioxide Anion Gap BUN Creatinine GFR Calculation BUN/Creatinine Ratio Glucose POC Glucose 141 H 145 H Calculated Osmolality Calcium Total Bilirubin Direct Bilirubin Indirect Bilirubin AST ALT Alkaline Phosphatase Ammonia Troponin I Total Protein Albumin Amylase 104 Lipase 169.0 Urine Color Urine Appearance Urine pH Ur Specific [place] Urine Protein Urine Glucose (UA) Urine Ketones Urine Blood Urine Nitrate Urine Bilirubin Urine Urobilinogen Urine Leukocytes Urine RBC Urine WBC Urine Bacteria Ur Culture Indicated? Urine Myoglobin Ur Random Creatinine Ur Random Sodium Ur Random Urea Nitrogn Blood Type Antibody Screen Crossmatch Post-Trans DYLLAN Poly 12/14/16 12/14/16 12/14/16 18:30 19:37 20:57 WBC RBC Hgb Hct MCV MCH MCHC RDW Plt Count MPV Neut % (Auto) Lymph % (Auto) Mower % (Auto) Eos % (Auto) Baso % (Auto) Neut # (Auto) Lymph # (Auto) Mower # (Auto) Eos # (Auto) Baso # (Auto) Immature Gran % Nucleated RBC % Immature Gran # Nucleated RBCs # Platelet Estimate Hypochromasia Microcytosis Ovalocytes [place] Cells Morphology Comment Sodium Potassium Chloride Carbon Dioxide Anion Gap BUN Creatinine GFR Calculation BUN/Creatinine Ratio Glucose POC Glucose 146 H Calculated Osmolality Calcium Total Bilirubin Direct Bilirubin Indirect Bilirubin AST ALT Alkaline Phosphatase Ammonia 14 Troponin I Total Protein Albumin Amylase Lipase Urine Color Urine Appearance Urine pH Ur Specific [place] Urine Protein Urine Glucose (UA) Urine Ketones Urine Blood Urine Nitrate Urine Bilirubin Urine Urobilinogen Urine Leukocytes Urine RBC Urine WBC Urine Bacteria Ur Culture Indicated? Urine Myoglobin Ur Random Creatinine Ur Random Sodium Ur Random Urea Nitrogn Blood Type Antibody Screen Crossmatch Post-Trans DYLLAN Poly Negative 12/14/16 12/14/16 12/15/16 21:50 Unknown 02:39 WBC 9.8 D RBC 3.41 L Hgb 8.7 L D 8.6 L Hct 27.5 L 27.7 L MCV 81.2 L MCH 25 L MCHC 31.0 L RDW 20.5 H Plt Count 157 MPV 12.0 Neut % (Auto) 86.9 H Lymph % (Auto) 5.3 L Mower % (Auto) 7.1 Eos % (Auto) 0.1 Baso % (Auto) 0.1 Neut # (Auto) 8.5 H Lymph # (Auto) 0.5 L Mower # (Auto) 0.7 Eos # (Auto) 0.0 Baso # (Auto) 0.0 Immature Gran % 0.5 Nucleated RBC % 0.8 Immature Gran # 0.05 Nucleated RBCs # 0.08 Platelet Estimate Normal Hypochromasia 1+ Microcytosis Slight Ovalocytes Slight Jennie Cells Slight Morphology Comment Sodium Potassium Chloride Carbon Dioxide Anion Gap BUN Creatinine GFR Calculation BUN/Creatinine Ratio Glucose POC Glucose Calculated Osmolality Calcium Total Bilirubin Direct Bilirubin Indirect Bilirubin AST ALT Alkaline Phosphatase Ammonia Troponin I Total Protein Albumin Amylase Lipase Urine Color Urine Appearance Urine pH Ur Specific [place] Urine Protein Urine Glucose (UA) Urine Ketones Urine Blood Urine Nitrate Urine Bilirubin Urine Urobilinogen Urine Leukocytes Urine RBC Urine WBC Urine Bacteria Ur Culture Indicated? Urine Myoglobin Ur Random Creatinine Ur Random Sodium Ur Random Urea Nitrogn Blood Type A POSITIVE Antibody Screen Negative Crossmatch See Detail Post-Trans DYLLAN Poly 12/15/16 12/15/16 12/15/16 02:39 07:11 09:49 WBC RBC Hgb 8.6 L Hct 27.6 L MCV MCH MCHC RDW Plt Count MPV Neut % (Auto) Lymph % (Auto) Mower % (Auto) Eos % (Auto) Baso % (Auto) Neut # (Auto) Lymph # (Auto) Mower # (Auto) Eos # (Auto) Baso # (Auto) Immature Gran % Nucleated RBC % Immature Gran # Nucleated RBCs # Platelet Estimate Hypochromasia Microcytosis Ovalocytes [place] Cells Morphology Comment Sodium 135 L Potassium 5.6 H Chloride 99 Carbon Dioxide 23 Anion Gap 18.6 H BUN 100 H Creatinine 7.30 H GFR Calculation 7 BUN/Creatinine Ratio 13.00 Glucose 167 H POC Glucose 190 H Calculated Osmolality 304.1 H Calcium 6.5 L Total Bilirubin 0.70 Direct Bilirubin 0.20 Indirect Bilirubin 0.5 AST 135 H ALT 878 H Alkaline Phosphatase 137 H Ammonia Troponin I Total Protein 5.7 L Albumin 2.5 L Amylase Lipase Urine Color Urine Appearance Urine pH Ur Specific [place] Urine Protein Urine Glucose (UA) Urine Ketones Urine Blood Urine Nitrate Urine Bilirubin Urine Urobilinogen Urine Leukocytes Urine RBC Urine WBC Urine Bacteria Ur Culture Indicated? Urine Myoglobin Ur Random Creatinine Ur Random Sodium Ur Random Urea Nitrogn Blood Type Antibody Screen Crossmatch Post-Trans DYLLAN Poly 12/15/16 11:23 WBC RBC Hgb Hct MCV MCH MCHC RDW Plt Count MPV Neut % (Auto) Lymph % (Auto) Mower % (Auto) Eos % (Auto) Baso % (Auto) Neut # (Auto) Lymph # (Auto) Mower # (Auto) Eos # (Auto) Baso # (Auto) Immature Gran % Nucleated RBC % Immature Gran # Nucleated RBCs # Platelet Estimate Hypochromasia Microcytosis Ovalocytes Jennie Cells Morphology Comment Sodium Potassium Chloride Carbon Dioxide Anion Gap BUN Creatinine GFR Calculation BUN/Creatinine Ratio Glucose POC Glucose 180 H Calculated Osmolality Calcium Total Bilirubin Direct Bilirubin Indirect Bilirubin AST ALT Alkaline Phosphatase Ammonia Troponin I Total Protein Albumin Amylase Lipase Urine Color Urine Appearance Urine pH Ur Specific [place] Urine Protein Urine Glucose (UA) Urine Ketones Urine Blood Urine Nitrate Urine Bilirubin Urine Urobilinogen Urine Leukocytes Urine RBC Urine WBC Urine Bacteria Ur Culture Indicated? Urine Myoglobin Ur Random Creatinine Ur Random Sodium Ur Random Urea Nitrogn Blood Type Antibody Screen Crossmatch Post-Trans DYLLAN Poly - Diagnostic Findings Procedure: Chest x-ray: image reviewed by me, report reviewed by me (12/15/16: Progressive bilateral pneumonia with associated atelectasis, small bilateral pleural effusions.), Ultrasound: image reviewed by me, report reviewed by me - EKG EKG results: interpreted by me, no acute changes EKG shows: sinus rhythm Tejas James John Timothy, MD, personally performed the services described in this documentation, ascribed by India Negrete RN in my presence, and it is both accurate and complete [id number] .
[2016-12-15] MEDS: LEVOFLOXACIN INJ 500 MG in PREMIX 1 EACH IV SCH (19:45)
[2016-12-16] MEDS: PIPERACILLIN/TAZOBACTAM 3,375 MG in SODIUM CHLORIDE 0.9% 100 ML IV SCH ×2 (02:59→13:16)
[2016-12-16 05:07] LABS: Eosinophils % 0.4 % (0.00-10.9); Hematocrit 27.4 VOL% (35.7-47.0); Hemoglobin 8.7 GM/DL (12.0-16.0); Immature Granulocytes % 0.9 %; Immature Granulocytes Absolute 0.08 #; Lymphocytes # 0.7 10*3/uL (1.4-4.0); Lymphocytes % 8.2 % (21.3-54.2); Mean Corpuscular HGB Conc 31.8 GM/DL (32-36); Mean Corpuscular Hemoglobin 26 PG (27-34); Mean Corpuscular Volume 80.8 FL (87-102); Mean Platelet Volume 11.2 FL (9.6-12.0); Monocytes % 11.2 % (1.7-12.7); NRBC # 0.09 10*3/uL; Neutrophils % 79.3 % (38.7-73.9); Platelet Count 151 T/CUMM (130-400); Red Blood Count 3.39 MC/CUMM (3.8-5.5); Red Cell Distribution Width 20.4 % (9.3-17.3); White Blood Count 8.9 T/CUMM (4-12)
[2016-12-16 05:46] LABS: Band Neutrophils 2 % (0-10); Elliptocytes Few; Eosinophils 4 % (0-10); Hypochromasia 1+; Lymphocytes 7 % (20-55); Nucleated Red Blood Cells 2 (0-5); Platelet Estimate Normal; Segmented Neutrophils 77 % (50-85); Total Cells Counted 100
[2016-12-16 05:47] LABS: Calcium 6.7 MG/DL (8.5-10.1); Microcytosis Slight
[2016-12-16 05:48] LABS: Osmolality,Calculated 295.9 MOS/KG (273-304); Potassium 5.4 MMOL/L (3.5-5.1)
[2016-12-16] MEDS ORDERED: AMOXICILLIN 500 MG CAPSULE ONE (07:33)
--- NOTE | 2016-12-16 08:14 | Nephrology Progress Note ---
Nephrology - PN: Subj Interval history: Patient denies shortness of breath. Review of systems GI she denies, she reports decreased urine output Physical exam general patient is chronically ill-appearing, and drowsy appearing. Assessment/plan 1. Acute renal failure-this patient's creatinine continues to increase her urine output is decreasing I am going to ask general surgery to place a dialysis catheter, this could be done today or tomorrow will initiate dialysis after this. 2. UTI 3. Pneumonia 4. Gram-negative bacteremia 5. Anemia 6. Diabetes mellitus 7. Hypertension Exam (PN)-Nephrology - Vital Signs Vital signs: Period Temp Pulse Resp BP Sys/Eli Pulse Ox Last 24 Hr 96.7 F-98.5 F 69-93 14-20 106-127/55-77 94-99 - Lab 12/16/16 04:52 12/16/16 04:52 Most recent lab results Calcium 6.7 MG/DL (8.5-10.1) L 12/16/16 04:52 Assessment and Plan (1) Acute renal failure Status: Acute Assessment and plan: This patient has some baseline chronic renal insufficiency related to diabetes and hypertension, and now has acute renal failure with a creatinine of around 7 mg/dL, this may be related to poor p.o. intake, as well as her infection with her UTI and possible occult hypoperfusion and hypotension related to her anemia. Will check a fractional excretion of urea nitrogen and sodium, I am going to start her on some IV fluids will also check a renal ultrasound and a bladder scan for urinary retention. Current Visit: Yes (2) Anemia Status: Acute Assessment and plan: I would have a low threshold for transfusing her. Current Visit: Yes (3) Elevated liver enzymes Status: Acute Assessment and plan: This may go along with some occult hypotension and shock liver Current Visit: Yes (4) Generalized weakness Status: Acute Current Visit: Yes (5) History of prosthetic mitral valve Status: Acute Current Visit: Yes (6) Pneumonia Status: Acute Assessment and plan: I agree with IV antibiotics Current Visit: Yes (7) UTI (urinary tract infection) Status: Acute Current Visit: Yes
[2016-12-16] MEDS: amLODIPine 5 MG TABLET PO SCH (09:33)
[2016-12-16] MEDS: PANTOPRAZOLE 40 MG VIAL IV SCH ×2 (09:33→21:30)
[2016-12-16] MEDS: LEVOTHYROXINE 75 MCG TABLET PO SCH (09:33)
[2016-12-16] MEDS: AMITRIPTYLINE 25 MG TABLET PO SCH (09:33)
[2016-12-16] MEDS: ISOSORBIDE MONONITRATE 60 MG TABLET PO SCH ×2 (09:33→21:29)
[2016-12-16] MEDS: MULTIVITAMIN IV SCH ×3 (09:34→13:16)
[2016-12-16] MEDS: THIAMINE IV SCH ×3 (09:34→13:16)
[2016-12-16] MEDS: DEXTROSE IV SCH ×3 (09:34→13:16)
[2016-12-16] MEDS: INSULIN LISPRO 100 UNIT/ML SUBCUT SCH ×4 (09:34→21:29)
--- NOTE | 2016-12-16 10:31 | General Surgery Consult Note ---
Assessment and Plan (1) Acute renal failure Status: Acute Assessment and plan: We have been consulted for placement of hemodialysis catheter. Patient with gram-negative haylie bacteremia and acute renal failure. The indications for the procedure as well as the risks have been reviewed with the patient and her family was at bedside. Unfortunately, the patient on he has, negative haylie bacteremia and a mechanical valve which is at risk to be infected. Additional risks reviewed including but limited to infection, bleeding, adjacent vessel, nerve or pulmonary injury,, blood clot, or hematoma. I discussed the family that this is not an ideal situation for hemodialysis catheter placement, but it appears she will not medically improve without it for dialysis. They seem to understand the gravity of the situation and agree to proceed with hemodialysis catheter placement at the discretion of Dr. Dennis Current Visit: Yes History of Present Illness Chief complaint: Acute renal failure History of present illness: Ms. Yañez is a 66 year old female with with past medical history of hypothyroidism, diabetes mellitus, chronic kidney insufficiency, and CHF with EF of 30% mechanical mitral valve currently admitted with gram-negative haylie septicemia, pneumonia and urinary tract infection with acute renal failure suspected associated with hypoperfusion. Patient denies any history of central line placements or chest trauma. We have been consulted for hemodialysis catheter placement. The patient is somewhat lethargic, and her 2 daughters are at bedside assisting in history. Home Medications Medication Instructions Recorded Confirmed Type Amitriptyline [Elavil] 25 mg PO DAILY 11/28/14 12/13/16 History Furosemide Tab [Lasix Tab] 40 mg PO DAILY 11/28/14 12/13/16 History amLODIPine [Norvasc] 5 mg PO DAILY 11/28/14 12/13/16 History metFORMIN [Glucophage] 1,000 mg PO BID W/MEALS 11/28/14 12/13/16 History Aspirin EC Tab 81 mg PO DAILY 08/15/15 12/13/16 History Pantoprazole Tab [Protonix Tab] 40 mg PO DAILY #90 tablet 02/17/16 12/13/16 Rx Albuterol Sulfate [Proair Hfa] 2 puffs INH Q4H PRN 12/13/16 12/13/16 History Carvedilol [Coreg] 25 mg PO BID 12/13/16 12/13/16 History Estradiol [Estradiol Tab] 0.5 mg PO DAILY 12/13/16 12/13/16 History Ferrous Sulfate Tab [Feosol 325 mg PO TID 12/13/16 12/13/16 History Original Tab] Hydralazine HCl 25 mg PO TID 12/13/16 12/13/16 History Isosorbide Mononitrate [Isosorbide 60 mg PO BID 12/13/16 12/13/16 History Mononitrate ER] Levothyroxine Sodium 75 mcg PO DAILY 12/13/16 12/13/16 History [Levothyroxine Sodium] Magnesium Chloride [Slow-Mag] 71.5 mg PO BID 12/13/16 12/13/16 History Nitroglycerin Sl Tab [Nitrostat] 0.4 mg SL Q5M PRN 12/13/16 12/13/16 History Potassium Chloride Cap/Tab [K Dur] 10 meq PO BID 12/13/16 12/13/16 History Simvastatin [Zocor] 40 mg PO DAILY 12/13/16 12/13/16 History Warfarin Sodium [Warfarin Sodium] 5 mg PO DAILY 12/13/16 12/13/16 History chlordiazePOXIDE HCl 10 mg PO TID 12/13/16 12/13/16 History [Chlordiazepoxide HCl] Allergies Allergy/AdvReac Type Severity Reaction Status Date / Time No Known Allergies Allergy Verified 12/13/16 11:50 Medical,Surgical,& Family Hx - Medical History Cardio: History of: CAD (s/p CABG), Hypertension, ND, Valvular Heart Disease (S/ p mechanical valve replacement), Cardiovascular Problems Psychological: History of: Depression Neurology: History of: TIA Endocrine: History of: Diabetes Mellitus (NIDDM), Dyslipidemia, Thyroid Disorder Renal: History of: Renal Failure, Renal Problems (CKI) Genitourinary: History of: Kidney Stones Gastrointestinal: History of: Diverticulitis/ Diverticulosis (left-sided diverticulosis), GERD, Gastrointestinal Bleed (multiple small bowel AVMs, or mild gastritis), Polyps (sigmoid hyperplastic polyps), GI Problems No history of: Gastrointestinal Cancer Hematology: History of: Anemia Other: No history of: Malignant Hyperthermia, MRSA, Vancomycin-Resistant Enterococci , Skin Problems, Miscellaneous Medical Problems - Surgical History Cardiac Surgeries: Sugical HX of: Cardiac Catheterization (with stents), Cardiac Surgery (bypass) Patient Denies: Femoral-Popliteal Bypass Graft, Carotid Endarterectomy, Internal Defibrillator, Vascular Access Devices Thoracic Surgeries: Patient denies;: Kidney (Renal Surgery), Lithotripsy, Nephrectomy, Organ Transplant, Lobectomy Neurologic Surgeries: Patient denies: Brain Aneurysm, Cerebral Hemorrhage, Neurologic Surgery HEENT Surgeries: Patient denies: Carotid Endarterectomy, Eye Surgery, Thyroid Surgery, Tonsilectomy & Adenoidectomy Abdominal Surgeries: Surgical HX of: Colonoscopy, EGD Patient denies: Abdominal Surgery, Appendectomy, Cholecystectomy, Gastric Bypass Surgery, Hernia Repair, Splenectomy Reproductive Surgeries: Surgical HX of;: Gynecologic Surgery, Hysterectomy Patient denies;: Breast Surgery, Section, Cystoscopy, Dilation and Curettage, Genitourinary Surgery, Tubal Ligation Orthopedic Surgeries: Patient denies;: Implanted Devices, Orthopedic Surgery, Spinal Surgery, Total Hip Replacement, Total Knee Replacement - Family History Family History: Reports;: Family Cancer (MOTHER CERVICAL), Family Stroke (FATHER ) Denies;: Family Anesthesia Reaction, Family Diabetes, Family Heart Disease, Family Hypertension, Family Psychiatric Problems - Social History Smoking Status: Current every day smoker Frequency of Alcohol Use: None Type of Drug Use: None - Constitutional Constitutional: Present: weakness. Absent: fever(s) - Cardiovascular Cardiovascular: Absent: chest pain at rest, chest pain with activity, palpitations - Respiratory Respiratory: Absent: cough, wheezing - Gastrointestinal Gastrointestinal: Absent: abdominal pain, diarrhea, nausea, vomiting - Genitourinary Genitourinary: Present: other (decreased urine output) - Musculoskeletal Musculoskeletal: Absent: arthralgias Hematologic/Lymphatic: Absent: easy bleeding, easy bruising Exam - Constitutional Vitals: Period Temp Pulse Resp BP Sys/Eli Pulse Ox Last 24 Hr 96.7 F-98.5 F 69-93 14-20 106-127/55-77 94-99 General appearance: no acute distress - Head Head exam: Present: normal inspection, normocephalic - Eye Eye exam: Absent: conjunctival injection, periorbital swelling, scleral icterus - Neck Neck exam: Present: trachea midline - Respiratory Respiratory exam: Present: clear to auscultation bilaterally - Cardiovascular Cardiovascular exam: Present: RRR - GI/Abdominal GI/Abdominal exam: Present: normal bowel sounds, soft. Absent: tenderness - Neurological Exam Neurological exam: Present: alert, oriented X3 - Skin Skin exam: Present: other (Chest wall and neck without deformity or rash.) Results - Labs CBC & BMP: 12/16/16 04:52 12/16/16 04:52
[2016-12-16 11:10] LABS: INR 1.5; PT Patient Result 15.8 SECS
[2016-12-16 11:17] LABS: Partial Thromboplastin Time 40.6 SECS (0-40)
--- NOTE | 2016-12-16 12:05 | Hospitalist Progress Note ---
Assessment and Plan - Time spent with patient Time spent with patient: Greater than 30 minutes (1) Encephalopathy acute Status: Acute Assessment and plan: Mutifactorial, infectious and metabolic. Dialysis should improve the azotemia and ultimately the infectious process will resolve. Current Visit: Yes (2) Sepsis Status: Acute Assessment and plan: Continue current management. Improving. Current Visit: Yes (3) Pneumonia Status: Acute Assessment and plan: Continue antibiotics. Current Visit: Yes (4) UTI (urinary tract infection) Status: Acute Assessment and plan: Continue antibiotics. Gram-negative rods E. coli. Current Visit: Yes (5) Abdominal pain Status: Acute Assessment and plan: Improving. Continue PPI. Will consider a CT of the abdomen if the abdominal pain persists. Current Visit: Yes (6) HIRO (acute kidney injury) Status: Acute Assessment and plan: With azotemia. I appreciate nephrology's assistance with this. Current Visit: Yes (7) Urinary retention Status: Acute Assessment and plan: Intermitted catheterizations, Urology consulted, appreciate their recommendations. Current Visit: Yes (8) Elevated liver enzymes Status: Acute Assessment and plan: Likely secondary to shock liver due to hypotension possibly from sepsis. Levels are dramatically improving. Current Visit: Yes (9) Elevated troponin Status: Acute Assessment and plan: Cardiology has been consulted, defer to them. Current Visit: Yes (10) H/O mitral valve replacement with mechanical valve Status: Chronic Assessment and plan: Patient has anemia and I suspect acute blood loss secondary to potential GI bleed. Anticoagulation is being held and anemia panel has been drawn and stool studies to assess for the presence of blood. Current Visit: Yes (11) Hyperkalemia Status: Acute Assessment and plan: Due to acute kidney injury. Current Visit: Yes (12) Congestive heart failure Status: Acute Assessment and plan: Chest x-ray confirms mild exacerbation and echocardiogram reveals systolic dysfunction. Current Visit: No (13) Positive blood cultures Status: Acute Assessment and plan: GNR, zosyn and levaquin. Current Visit: Yes (14) Anemia Status: Acute Assessment and plan: We will start the patient on PPI and consult gastroenterology. Will transfuse 2 units. Heme occult. see above. Current Visit: Yes Hospitalist: Subjective Interval history: Patient is slightly more improved today in terms of mentation. She still is drowsy and lethargic. Lab values have been noted this morning. No overnight events. Surgery was consulted for dialysis catheter placement. Exam - Constitutional Vitals: Period Temp Pulse Resp BP Sys/Eli Pulse Ox Last 24 Hr 96.7 F-98.5 F 69-80 14-20 106-132/55-77 96-99 General appearance: no acute distress - Head Head exam: Present: normocephalic, atraumatic - Eye Eye exam: Present: EOMI Pupils: Present: IRWIN - ENT ENT exam: Present: normal exam - Neck Neck exam: Present: normal inspection - Respiratory Respiratory exam: Present: clear to auscultation bilaterally. Absent: rhonchi, wheezes - Cardiovascular Cardiovascular exam: Present: regular rate and rhythm. Absent: gallop, rubs, systolic murmur - GI/Abdominal GI/Abdominal exam: Present: normal bowel sounds, soft. Absent: distended, firm , guarding, tenderness, rebound - Extremities Exam Extremities exam: Present: normal inspection. Absent: calf tenderness, edema Results - Labs CBC & BMP: 12/16/16 04:52 12/16/16 04:52 Lab Results: I have reviewed the past 24 hour labs
[2016-12-16] MEDS ORDERED: HEPARIN 5,000 UNIT/1 ML VIAL ONE (13:23)
[2016-12-16 14:12] LABS: Hepatitis A Ab IgM Result Negative (Negative); Hepatitis B Core IgM Quant 0.18 Index; Hepatitis B Core IgM Result Negative (Negative); Hepatitis B Surface Ag Quant < 0.10 Index; Hepatitis B Surface Ag Result Negative (Negative); Hepatitis C Virus Ab Quant 0.02 Index; Hepatitis C Virus Ab Result Negative (Negative)
--- NOTE | 2016-12-16 14:14 | XRay Report ---
Referring Physician: Eligio Dennis Exam: XR chest 1V portable Date: December 16, 2016 at 1:28 PM Reason: Postop, hemodialysis catheter insertion Comparison: Chest one view portable December 15, 2016 Findings: A right-sided dialysis catheter is present with its distal tip within the right atrium. There are hazy opacities throughout both lungs. This could represent pulmonary edema and/or pneumonia. No pneumothorax is identified, but there may be minimal bilateral pleural fluid. The osseous structures appear stable. Impression: 1. A hemodialysis catheter is now in place with its distal tip within the right atrium. 2. There are hazy opacities within both lungs which have improved on the right. This could represent pulmonary edema and/or pneumonia. PROCEDURE INTERPRETED AT [facility] DEPARTMENT OF RADIOLOGY Final Report Signed by: Dr. Venkata Ontiveros
--- NOTE | 2016-12-16 15:18 | Dialysis Note ---
Dialysis Note - Dialysis Note Ms. Yañez is seen during hemodialysis. She is tolerating her first dialysis well. Plan is to continue to support her.
--- NOTE | 2016-12-16 15:21 | Operative Note ---
Date of procedure: 12/16/16 Pre-op diagnosis: Renal failure Post-op diagnosis: same Procedure: Procedure performed: Placement of right internal jugular non-tunneled hemodialysis catheter #2 ultrasound-guided venous access Procedure in detail: After informed consent was obtained patient was brought down to recovery room and placed in supine position. Trendelenburg position obtained. Right neck and chest were prepped and draped in usual sterile fashion. Ultrasound was then brought over through a sterile sleeve cover. After procedural pause local anesthetic infiltrated the skin and subcutaneous tissue to the base the right neck. Ultrasound confirmed a patent compressible right internal jugular vein. Right internal jugular vein was then accessed using an 18-gauge Seldinger needle under ultrasound guidance on the first attempt. There was return of nonpulsatile dark red blood. Guidewire inserted without resistance. Small incision was made around the guidewire and the tract was dilated using Seldinger technique. A non-cuffed hemodialysis catheter was placed over the guidewire and advanced using Seldinger technique. The guidewire was removed. All ports withdrew and flushed easily and were locked with heparinized saline. Catheter secured in place with 2-0 silk suture. Sterile dressings applied. Patient was taken to the dialysis unit for dialysis. She tolerated the procedure well. Anesthesia: local Surgeon / Physician: Eligio Dennis Estimated blood loss: other (Less than 10 cc) Specimens: none sent Condition: stable Disposition: floor Results - Labs CBC & BMP: 12/16/16 04:52 12/16/16 04:52 Discharge Plan - Discharge Medications No Action metFORMIN [Glucophage] 1,000 mg PO BID W/MEALS amLODIPine [Norvasc] 5 mg PO DAILY Furosemide Tab [Lasix Tab] 40 mg PO DAILY Amitriptyline [Elavil] 25 mg PO DAILY Aspirin EC Tab 81 mg PO DAILY Pantoprazole Tab [Protonix Tab] 40 mg PO DAILY #90 tablet Isosorbide Mononitrate [Isosorbide Mononitrate ER] 60 mg PO BID Levothyroxine Sodium [Levothyroxine Sodium] 75 mcg PO DAILY Warfarin Sodium [Warfarin Sodium] 5 mg PO DAILY Estradiol [Estradiol Tab] 0.5 mg PO DAILY Ferrous Sulfate Tab [Feosol Original Tab] 325 mg PO TID Carvedilol [Coreg] 25 mg PO BID Simvastatin [Zocor] 40 mg PO DAILY Albuterol Sulfate [Proair Hfa] 2 puffs INH Q4H PRN PRN Reason: Allergy Symptoms Nitroglycerin Sl Tab [Nitrostat] 0.4 mg SL Q5M PRN PRN Reason: Chest Pain Magnesium Chloride [Slow-Mag] 71.5 mg PO BID Potassium Chloride Cap/Tab [K Dur] 10 meq PO BID chlordiazePOXIDE HCl [Chlordiazepoxide HCl] 10 mg PO TID Hydralazine HCl 25 mg PO TID - Follow Up or Referral - Forms/Instructions
--- NOTE | 2016-12-16 15:39 | Gastrointestinal Consult Note ---
Assessment and Plan (1) Small bowel arteriovenous malformation Status: Chronic Assessment and plan: This was discovered by upper endoscopy by Dr. Moctezuma during his last scope on this patient back on 02/13/16. The patient was also previously been noted to have AVMs in her small bowel by Dr. Du on his capsule endoscopy done in . Minimal lysing the amount of anticoagulation this patient is given is really the only treatment for these although it would be possible to cauterize more proximal lesions the jejunal involvement cannot be reached without a double balloon endoscopy which is only available in several research centers across the country. This being said, the patient's hematocrit is not decreased significantly from when I saw her back in February 2016. She may be able to get by with occasional blood transfusion and iron supplementation as well as use of bone marrow stimulants (erythropoietin and Aranesp) as you are doing. She could be placed on Protonix twice daily but there is little else to add to her regimen currently. I would try and keep her INR is close to 2.5 is possible considering her mechanical mitral valve. Current Visit: No (2) Elevated liver enzymes Status: Acute Assessment and plan: Given the rapidity of improvement of these wildly elevated liver function tests I suspect that the patient had an episode of ischemic hepatitis. This is not uncommon given the sepsis experience with gram-negative rods with E. coli in her urine. They have already started to normalize. Supportive care is all that is required. I do not believe that this patient has hepatic encephalopathy but rather anoxic encephalopathy. She will not benefit from use of lactulose. Current Visit: Yes (3) Anemia Status: Acute Assessment and plan: The patient does have some multifactorial anemia that is likely due to bone marrow suppression with her current renal dysfunction, gastritis, anemia of chronic disease with her comorbidities, nutritional deficiencies, and of course bleeding from the AVMs in light of use of anticoagulation. Agree with your use of iron, pantoprazole to block her acid and should the need arise use of bone marrow stimulant agents as mentioned previously. I do not believe that she requires a repeat upper endoscopy, colonoscopy, or capsule endoscopy. These have been done recently. Current Visit: Yes (4) Encephalopathy acute Status: Acute Assessment and plan: As mentioned above this is likely anoxic encephalopathy, not hepatic encephalopathy. With supportive care this may improve over time. Current Visit: Yes History of Present Illness Chief complaint: Elevated liver function tests, anemia, history of AVM/gastritis /polyps History of present illness: Ms. Yañez is a 66 year old female who has been previously seen by me initially while Dr. Du was on vacation back in December 2014. She has a [employer]'s mitral valve prosthesis with Coumadin use on a routine basis. She has been bounce back and forth between myself and Dr. Jose Elias Moctezuma actually did a upper endoscopy on this patient back on 02/13/16 due to her atypical chest pain and anemia was felt to have a small hiatal hernia as well as a normal- appearing esophagus and mild antral gastritis gastric polyps were noted and the pyloric channel and duodenal bulb showed AVMs. His suggestion at that time was to minimize her INR to whatever degree is possible and to continue with Protonix. The patient had been on double dose Protonix when I saw her last in the office on 03/05/16. I do note that the patient had undergone previous colonoscopy by Dr. Du as recently as 06/13/17 at which time he noted that she had mild pelvic scarring but adequate visualization to the cecum with scattered diverticuli in the left colon and a few hyperplastic polyps noted in the sigmoid as well as second-degree hemorrhoids. She will really not need a repeat colonoscopy until June 2019. Because of the ongoing bleeding Dr. Du did order a capsule endoscopy which was performed on 06/22/14 which showed several AVMs that were nonbleeding in the mid jejunum without other significant pathology. Most recently the patient's hematocrit has dwindled from I last saw her back on 04/21/16 she had dropped down to 30.4 with a hemoglobin of 9.7, most recently this is been down to 27.4 with a hemoglobin of 8.7 but I do note that the patient has just recently experienced urinary tract infection with E. coli resulting in a white blood cell count of 15.2 on 12/14/16 , posttreatment this is down to 8.9, and remains on Coumadin for her artificial [employer] Abdifatah's heart valve still with 3+ heme in her stool. She cannot recall if she has had any dark, black or bloody stools, but her INR earlier in the admission was 2.8 on 12/13/16 and his since dropped down to 1.5 as of today, 12/16. With her renal dysfunction and confusion the patient is being started on hemodialysis via a right neck Tessio. The patient seems confused at this time is having difficulty answering questions, this despite the fact that her ammonia level was measured at 14 on 12/14/16 which is normal. Earlier in the admission the patient's AST was measured at being 1315, this is dropped down to 135 now 2 days later, ALT abdomen is high as 1769 and is recently dropped down to 878 in these last 2 days as well both consistent with ischemic hepatitis likely due to her hypotension associated with the gram-negative haylie sepsis episode. Patient's alkaline phosphatase dropped from 194-137 which is certainly less impressive than the above but bilirubin has remained essentially within normal limits throughout the entirety again underscoring that this is an ischemic hepatitis. Ultrasound done on 12/14/16 demonstrated the prior cholecystectomy and a slight increased echogenicity of hepatic triad structures but was otherwise normal. Given this patient's creatinine is high as 8.2 suspect this likely has more to do with her anemia then loss from the GI tract. Once her dialysis is underway I suspect that she will need to be transfused and placed back on her Coumadin although levels should be minimized to whatever degree possible in order to prevent bleeding from the AVMs/gastritis. I do not believe that she would benefit from repeat endoscopic evaluation as these have been checked as recently as . I strongly suspect that her confused affect is likely due to anoxic encephalopathy perhaps with her recent sepsis episode that produced the ischemic hepatitis. Home Medications Medication Instructions Recorded Confirmed Type Amitriptyline [Elavil] 25 mg PO DAILY 11/28/14 12/13/16 History Furosemide Tab [Lasix Tab] 40 mg PO DAILY 11/28/14 12/13/16 History amLODIPine [Norvasc] 5 mg PO DAILY 11/28/14 12/13/16 History metFORMIN [Glucophage] 1,000 mg PO BID W/MEALS 11/28/14 12/13/16 History Aspirin EC Tab 81 mg PO DAILY 08/15/15 12/13/16 History Pantoprazole Tab [Protonix Tab] 40 mg PO DAILY #90 tablet 02/17/16 12/13/16 Rx Albuterol Sulfate [Proair Hfa] 2 puffs INH Q4H PRN 12/13/16 12/13/16 History Carvedilol [Coreg] 25 mg PO BID 12/13/16 12/13/16 History Estradiol [Estradiol Tab] 0.5 mg PO DAILY 12/13/16 12/13/16 History Ferrous Sulfate Tab [Feosol 325 mg PO TID 12/13/16 12/13/16 History Original Tab] Hydralazine HCl 25 mg PO TID 12/13/16 12/13/16 History Isosorbide Mononitrate [Isosorbide 60 mg PO BID 12/13/16 12/13/16 History Mononitrate ER] Levothyroxine Sodium 75 mcg PO DAILY 12/13/16 12/13/16 History [Levothyroxine Sodium] Magnesium Chloride [Slow-Mag] 71.5 mg PO BID 12/13/16 12/13/16 History Nitroglycerin Sl Tab [Nitrostat] 0.4 mg SL Q5M PRN 12/13/16 12/13/16 History Potassium Chloride Cap/Tab [K Dur] 10 meq PO BID 12/13/16 12/13/16 History Simvastatin [Zocor] 40 mg PO DAILY 12/13/16 12/13/16 History Warfarin Sodium [Warfarin Sodium] 5 mg PO DAILY 12/13/16 12/13/16 History chlordiazePOXIDE HCl 10 mg PO TID 12/13/16 12/13/16 History [Chlordiazepoxide HCl] Allergies Allergy/AdvReac Type Severity Reaction Status Date / Time No Known Allergies Allergy Verified 12/13/16 11:50 Medical,Surgical,& Family Hx - Medical History Cardio: History of: CAD (s/p CABG), Hypertension, DC, Valvular Heart Disease (S/ p mechanical valve replacement), Cardiovascular Problems No history of: Aneurysm, Cardiac Dysrhythmia, Cerebrovascular Disease, Congenital Heart Disease, CHF, Pacemaker, PVD Psychological: History of: Depression No history of: Anxiety Disorders, ADHD, Behavior Problems, Bipolar Disorder, Previous Suicide Attempt, Psychiatric/Substance Abuse Tx, Schizophrenia, Violent Behavior, Psychiatric Problems Neurology: History of: TIA No history of: Brain Aneurysm, Cerebral Hemorrhage, Cerebrovascular Accident , Cerebral Palsy, Dementia, Migraine, Multiple Sclerosis, Parkinson's Disease, Peripheral Neuropathy, Seizures, Vertigo, Neurologocal Cancer HEENT: History of: Eye Problem (NEAR SIGHTED FAR SIGHTED) No history of: Ear Problem, Dental Problems, Glaucoma, Oral Cancer, HEENT Problems Endocrine: History of: Diabetes Mellitus (NIDDM), Dyslipidemia, Thyroid Disorder No history of: Adrenal Disease, Diabetes Mellitus (IDDM), Endocrine Cancer, Endocrine Problems Rheumatology: No history of;: Fibromyalgia, Gout, Myasthenia Gravis, Psoriasis, Rheumatoid Arthritis, Sjogrens, Systemic Lupus Erythematosus, Rheumatological Problems Respiratory: No history of: Asthma, Bronchitis, COPD, Intubation, Obstructive Sleep Apnea (STATES THAT SHE WAS TESTED AT [facility] AND DOESNT HAVE DALLIN), Pulmonary Embolism, Pulmonary Hypertension, Pneumonia, Lung Cancer, Respiratory Problems Renal: History of: Renal Failure, Renal Problems (CKI) No history of: Renal (Kidney) Cancer, Dialysis Genitourinary: History of: Kidney Stones No history of: Bladder Problem, Recurring Urinary Tract Infections, Genitourinary Cancer, Problems Gastrointestinal: History of: Diverticulitis/ Diverticulosis (left-sided diverticulosis), GERD, Gastrointestinal Bleed (multiple small bowel AVMs, or mild gastritis), Polyps (sigmoid hyperplastic polyps), GI Problems No history of: Bowel Obstruction, Clostridium Difficile, Crohn's Disease, Esophageal Varices, Hemorrhoids, Hematochezia, Hepatitis, Liver Problems, Pancreatitis, Ulcerative Colitis, Gastrointestinal Cancer Musculoskeletal: No history of: Amputation, Back/Neck Problems, Degenerative Disk Disease, Herniated Disk, Osteoporosis, Musculoskeletal Cancer, Musculoskeletal Problems Hematology: History of: Anemia No history of: Blood Transfusion Reaction, Bleeding Problems, Clotting Problems, Sickle Cell Disease, Hematologic Cancer, Blood Disorders Reproductive: No history of: Abnormal Pap Smear, Breast Cancer, Endometriosis, Ectopic , Ovarian Cysts, Complication, Sexually Transmitted Disorders , Reproductive Cancer, Reproductive Problems Other: No history of: Anesthesia Reactions, Anaphylaxis, Cancer, Eczema, HIV, Malignant Hyperthermia, MRSA, Vancomycin-Resistant Enterococci, Skin Problems, Miscellaneous Medical Problems - Surgical History Cardiac Surgeries: Sugical HX of: Cardiac Catheterization (with stents), Cardiac Surgery (bypass) Patient Denies: Femoral-Popliteal Bypass Graft, Carotid Endarterectomy, Internal Defibrillator, Vascular Access Devices Thoracic Surgeries: Patient denies;: Kidney (Renal Surgery), Lithotripsy, Nephrectomy, Organ Transplant, Lobectomy Neurologic Surgeries: Patient denies: Brain Aneurysm, Cerebral Hemorrhage, Neurologic Surgery HEENT Surgeries: Patient denies: Carotid Endarterectomy, Eye Surgery, Thyroid Surgery, Tonsilectomy & Adenoidectomy Abdominal Surgeries: Surgical HX of: Colonoscopy, EGD Patient denies: Abdominal Surgery, Appendectomy, Cholecystectomy, Gastric Bypass Surgery, Hernia Repair, Splenectomy Reproductive Surgeries: Surgical HX of;: Gynecologic Surgery, Hysterectomy Patient denies;: Breast Surgery, Section, Cystoscopy, Dilation and Curettage, Genitourinary Surgery, Tubal Ligation Orthopedic Surgeries: Patient denies;: Implanted Devices, Orthopedic Surgery, Spinal Surgery, Total Hip Replacement, Total Knee Replacement - Family History Family History: Reports;: Family Cancer (MOTHER CERVICAL), Family Stroke (FATHER ) Denies;: Family Anesthesia Reaction, Family Diabetes, Family Heart Disease, Family Hypertension, Family Psychiatric Problems - Social History Smoking Status: Current every day smoker Frequency of Alcohol Use: None Type of Drug Use: None ROS unobtainable: due to encephalopathy Exam - Constitutional Vitals: Period Temp Pulse Resp BP Sys/Eli Pulse Ox Last 24 Hr 96.7 F-98.5 F 69-80 14-20 106-132/55-77 96-99 General appearance: no acute distress Exam: Constitutional: Well-developed, well-nourished, confused black female, drowsy but in no acute distress Head and face: Head: Normocephalic atraumatic Eyes: Conjunctiva without injection, no gross scleral icterus, pupils equal and round bilaterally Ears: Intact to conversation in both ears Nose: External appearance is normal, nares patent Mouth: Oral mucous membranes moist without erythema, dentition noted to be without erosion Neck: Normal appearance, no masses or tenderness, trachea midline, there is a Tessio in the right side of her neck Thyroid: Gland midline and appropriate size for age Respiratory: Normal respiratory effort, clear to auscultation without wheezes, rhonchi or rales Cardiovascular: Regular rate and rhythm, normal S1, S2, the exam is notable for a metallic click and a slight 1/6 systolic ejection murmur at the left lower sternal border. Gastrointestinal: Moderate distention with very mild tenderness noted in mostly the epigastric region, normal active bowel sounds, tone normal without rigidity or guarding, no masses present, no hepatomegaly, no spleen tip felt. No rectal exam obtained. Lymphatic: Neck without adenopathy, axilla without lymphadenopathy present Musculoskeletal: Right and left lower extremities with trace evidence of edema, the dorsum of the hands greater than the ankles Skin and subcutaneous tissue: No rashes or ulcerations noted, normal skin turgor, digits and nails without clubbing/cyanosis/deformities. Neurologic: The patient is grossly oriented to person only, cranial nerves show tongue movements are normal with normal tongue extrusion midline, light touch sensation is intact. Psychiatric: No hallucinations or delusions are present, does not appear depressed but is moderately confused Results - Labs CBC & BMP: 12/16/16 04:52 12/16/16 04:52
--- NOTE | 2016-12-16 17:43 | Cardiology Progress Note ---
Caden James Vanessa, RN, am scribing for, and in the presence of, Jesus Lazaro MD 17:41. Assessment and Plan - Time spent with patient Time spent with patient: Greater than 30 minutes (1) H/O mitral valve replacement with mechanical valve Status: Chronic Assessment and plan: Appears to be stable. She will require chronic anticoagulation with warfarin. This needs to be restarted as soon as possible. Current Visit: Yes (2) Elevated troponin Status: Acute Assessment and plan: EKG negative for ischemic finding. Troponin level peaked at 1.43 in the face of acute renal failure with creatinine of 7.0. Clinically, she remained stable without acute cardiac findings. At present this needs no further evaluation. Current Visit: Yes (3) HIRO (acute kidney injury) Status: Acute Assessment and plan: History of some underlying chronic renal insufficiency with episode of acute renal failure at this time. Nephrology is also following. Acute renal failure has accelerated, and creatinine is now 8.7 with decreased urine output. She has now had dialysis catheter placed and is undergoing dialysis. Current Visit: Yes (4) Anemia Status: Acute Assessment and plan: Transfuse with 2 units PRBCs on December 14 with H&H of 7.1/22.9. Anemia stable at this time, and H&H is 8.7/27.4. Current Visit: Yes (5) Abdominal pain Status: Acute Assessment and plan: Improved. 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 Plavix, Brilinta with aspirin). Coumadin is currently on hold due to anemia. Anemia stable at this time. Current Visit: Yes (7) Elevated liver enzymes Status: Acute Assessment and plan: This has improved since admission and current AST 135, ALT 238 on December 15. Current Visit: Yes (8) Hyperkalemia Status: Acute Assessment and plan: Potassium is 5.4 per Current Visit: Yes (9) Pneumonia Status: Acute Assessment and plan: She is on IV antibiotic therapy. Current Visit: Yes (10) Positive blood cultures Status: Acute Assessment and plan: Currently on IV antibiotics. Blood cultures with gram-negative rods. Current Visit: Yes (11) Sepsis Status: Acute Current Visit: Yes (12) UTI (urinary tract infection) Status: Acute Assessment and plan: Urine culture positive for E. coli. Current Visit: Yes (13) Chronic anticoagulation Status: Acute Assessment and plan: Chronically anticoagulated with Coumadin. INR 2.8 on December 13. 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 Yañez is a 66-year-old white female with risk factor significant hypertension, diabetes, dyslipidemia, previously known history of CAD, current smoker. Past medical history includes mechanical mitral valve placement, myocardial infarction, multiple previously placed coronary artery stents, and coronary artery bypass grafting 3, hypothyroidism. She is on chronic warfarin therapy. She has been noted to have had difficulty with recurrent GI bleeding with AVMs on dual antiplatelet therapy. Patient also has a history of acute combined systolic and diastolic congestive heart failure, NYHA class III. Patient presented to [place] ER on December 13 complaining of generalized weakness with chest pain. Diagnostic workup revealed pneumonia, UTI, and acute renal failure with creatinine of 6.6. Of note, patient previously had a creatinine of 1.7 in July 2016. Blood culture with gram-negative rods and urine culture also with gram-negative rods. She has been transfused with 2 units PRBCs for H&H 7.1/22.9 on December 14, and posttransfusion H&H 8.6/27.6. Cardiology asked to see for chest pain with troponin level. At admission, patient had serial troponin levels with troponin 1.370, 1.430, and 1.200. EKG negative for acute ischemic finding. Echocardiogram on December 13 with mild LVH, moderately decreased LV systolic function with EF of 30%, mildly increased to an RA, severely increased LA, moderate TR with PA pressure 46 mmHg. December, UPDATE: Ms. Yañez remains somnolent today, she is poorly responsive. She does not appear to be in any acute respiratory distress. Daughter is present at bedside. Her urine output has decreased, and her creatinine has continued to increase and today is 8.2 (7.3 yesterday), BUN 112. Potassium is 5.4. Sodium 129. Vitals have been stable with systolic BP ranging 105-120 mmHg. Pulse rate is 60s, regular by exam. Patient has had temporary dialysis catheter placed transcutaneously and is already had a dialysis this afternoon. Hemoccult 3+ blood. H&H unchanged 8.7/27.4. With her mechanical mitral valve we certainly need to start her back on her warfarin as soon as it is feasible. Exam (Progress Note) - Constitutional Vitals: Period Temp Pulse Resp BP Sys/Eli Pulse Ox Last 24 Hr 96.7 F-98.5 F 69-93 14-20 106-127/55-77 94-99 Exam: General: No acute distress. Morbidly obese. The patient is drowsy but is responsive. HEENT: Normocephalic, sclera are clear there are no lid xanthelasmas noted. Oral mucosa is free of cyanosis or pallor. Neck: The neck is supple without JVD. Carotid upstrokes are normal volume and amplitude. There is no audible bruit. There is no palpable thyroid. Trachea is midline. Lungs: Coarse lung sounds bilaterally without rales, rhonchi, or wheezes noted. There are decreased breath sounds at the bases bilaterally. Cardiovascular: The PMI is nondisplaced. No palpable thrill S3 or S4. There is a regular rate and rhythm with no murmur, rub, or gallop noted. Dorsalis pedis posterior tibial and femoral pulses are 2+ and equal bilaterally. Mechanical valve clicks are noted. Abdomen: Abdomen is soft with normal active bowel sounds. Tenderness with palpation. There is no palpable mass or organomegaly noted. There is no midline bruit. Extremities exam: Present: 1+ pedal and pretibial edema. Absent: Cyanosis, clubbing. Skin: Present: warm and dry without ecchymosis, urticaria, skin rash, or suspicious lesion. Psych: Patient is not anxious. She is drowsy but responsive, and she is somnolent when awake. Musculoskeletal: There is no kyphosis or scoliosis noted. Result/EKG - Labs CBC & BMP: 12/16/16 04:52 12/16/16 04:52 Lab Results: I have reviewed the past 24 hour labs Labs: Laboratory Results - last 24 hr 12/15/16 12/15/16 12/15/16 11:23 17:48 21:24 WBC RBC Hgb Hct MCV MCH MCHC RDW Plt Count MPV Neut % (Auto) Lymph % (Auto) [place] % (Auto) Eos % (Auto) Baso % (Auto) Neut # (Auto) Lymph # (Auto) [place] # (Auto) Eos # (Auto) Baso # (Auto) Total Counted Immature Gran % Nucleated RBC % Immature Gran # Segmented Neutrophils Band Neutrophils Lymphocytes Monocytes Eosinophils Nucleated RBCs Nucleated RBCs # Platelet Estimate Hypochromasia Microcytosis Elliptocytes Morphology Comment Sodium Potassium Chloride Carbon Dioxide Anion Gap BUN Creatinine GFR Calculation BUN/Creatinine Ratio Glucose POC Glucose 180 H 167 H 169 H Calculated Osmolality Calcium 12/16/16 12/16/16 12/16/16 04:52 04:52 06:49 WBC 8.9 RBC 3.39 L Hgb 8.7 L Hct 27.4 L MCV 80.8 L MCH 26 L MCHC 31.8 L RDW 20.4 H Plt Count 151 MPV 11.2 Neut % (Auto) 79.3 H Lymph % (Auto) 8.2 L [place] % (Auto) 11.2 Eos % (Auto) 0.4 Baso % (Auto) 0.0 Neut # (Auto) 7.0 Lymph # (Auto) 0.7 L [place] # (Auto) 1.0 H Eos # (Auto) 0.0 Baso # (Auto) 0.0 Total Counted 100 Immature Gran % 0.9 Nucleated RBC % 1.0 Immature Gran # 0.08 Segmented Neutrophils 77 Band Neutrophils 2 Lymphocytes 7 L Monocytes 10 Eosinophils 4 Nucleated RBCs 2 Nucleated RBCs # 0.09 Platelet Estimate Normal Hypochromasia 1+ Microcytosis Slight Elliptocytes Few Morphology Comment Sodium 129 L Potassium 5.4 H Chloride 95 L Carbon Dioxide 21 Anion Gap 18.4 H BUN 112 H Creatinine 8.20 H GFR Calculation 6 BUN/Creatinine Ratio 13.00 Glucose 141 H POC Glucose 139 H Calculated Osmolality 295.9 Calcium 6.7 L - EKG EKG results: interpreted by me, no acute changes Tejas James John Timothy, MD, personally performed the services described in this documentation, ascribed by India Negrete RN in my presence, and it is both accurate and complete [id number] .
[2016-12-17] MEDS: PIPERACILLIN/TAZOBACTAM 3,375 MG in SODIUM CHLORIDE 0.9% 100 ML IV SCH (01:54)
[2016-12-17 05:26] LABS: Basophils % 0.1 % (0.0-0.8); Eosinophils # 0.1 10*3/uL (0.0-0.87); Eosinophils % 0.7 % (0.00-10.9); Hematocrit 26.8 VOL% (35.7-47.0); Hemoglobin 8.4 GM/DL (12.0-16.0); Immature Granulocytes % 0.6 %; Immature Granulocytes Absolute 0.04 #; Lymphocytes # 0.5 10*3/uL (1.4-4.0); Lymphocytes % 7.6 % (21.3-54.2); Mean Corpuscular HGB Conc 31.3 GM/DL (32-36); Mean Corpuscular Hemoglobin 25 PG (27-34); Mean Corpuscular Volume 78.8 FL (87-102); Mean Platelet Volume 10.7 FL (9.6-12.0); Monocytes # 0.7 10*3/uL (0.11-0.8); NRBC # 0.08 10*3/uL; Neutrophils # 5.8 10*3/uL (1.4-7.4); Platelet Count 162 T/CUMM (130-400); Red Cell Distribution Width 20.5 % (9.3-17.3); White Blood Count 7.1 T/CUMM (4-12)
[2016-12-17 05:44] LABS: Hypochromasia 1+; Platelet Estimate Normal
[2016-12-17 05:48] LABS: Ovalocytes Slight
[2016-12-17 05:49] LABS: Microcytosis Slight
[2016-12-17 06:16] LABS: Calcium 7.1 MG/DL (8.5-10.1); Osmolality,Calculated 289.5 MOS/KG (273-304); Potassium 4.9 MMOL/L (3.5-5.1)
[2016-12-17] MEDS: DEXTROSE IV SCH ×2 (07:11→13:08)
[2016-12-17] MEDS: MULTIVITAMIN IV SCH ×2 (07:11→13:08)
[2016-12-17] MEDS: THIAMINE IV SCH ×2 (07:11→13:08)
[2016-12-17] MEDS: AMITRIPTYLINE 25 MG TABLET PO SCH (08:48)
[2016-12-17] MEDS: amLODIPine 5 MG TABLET PO SCH (08:48)
[2016-12-17] MEDS: ISOSORBIDE MONONITRATE 60 MG TABLET PO SCH ×2 (08:48→21:02)
[2016-12-17] MEDS: PANTOPRAZOLE 40 MG VIAL IV SCH ×2 (08:51→21:02)
--- NOTE | 2016-12-17 09:07 | Nephrology Progress Note ---
Nephrology - PN: Subj Interval history: Patient states she feels better today. She is asking to get up out of the bed. Review of systems pulmonary she denies shortness of breath, GI she denies nausea or vomiting Physical exam general the patient's still quite weak appearing, she does respond a little bit better than she was yesterday, lower extremities reveal trace to 1+ pretibial edema Assessment/plan 1. Acute renal failure-patient was dialyzed yesterday, will plan on another dialysis treatment tomorrow 2. Pneumonia 3. UTI-we will continue antibiotics 4. Anemia-patient's hematocrit stable around 27%, I agree with Dr. Jefferson's input if her kidneys do not recover we may need to start erythropoietin therapy. Exam (PN)-Nephrology - Vital Signs Vital signs: Period Temp Pulse Resp BP Sys/Eli Pulse Ox Last 24 Hr 96.8 F-98.2 F 71-89 16-20 133-156/49-68 93-96 - Lab 12/17/16 05:10 12/17/16 05:10 Most recent lab results Calcium 7.1 MG/DL (8.5-10.1) L 12/17/16 05:10 Assessment and Plan (1) Acute renal failure Status: Acute Assessment and plan: This patient has some baseline chronic renal insufficiency related to diabetes and hypertension, and now has acute renal failure with a creatinine of around 7 mg/dL, this may be related to poor p.o. intake, as well as her infection with her UTI and possible occult hypoperfusion and hypotension related to her anemia. Will check a fractional excretion of urea nitrogen and sodium, I am going to start her on some IV fluids will also check a renal ultrasound and a bladder scan for urinary retention. Current Visit: Yes (2) Anemia Status: Acute Assessment and plan: I would have a low threshold for transfusing her. Current Visit: Yes (3) Elevated liver enzymes Status: Acute Assessment and plan: This may go along with some occult hypotension and shock liver Current Visit: Yes (4) Generalized weakness Status: Acute Current Visit: Yes (5) History of prosthetic mitral valve Status: Acute Current Visit: Yes (6) Pneumonia Status: Acute Assessment and plan: I agree with IV antibiotics Current Visit: Yes (7) UTI (urinary tract infection) Status: Acute Current Visit: Yes
[2016-12-17] MEDS: LEVOTHYROXINE 75 MCG TABLET PO SCH (09:53)
[2016-12-17] MEDS: INSULIN LISPRO 100 UNIT/ML SUBCUT SCH ×4 (09:57→21:16)
[2016-12-17] MEDS ORDERED: WARFARIN 10 MG TABLET PO ONE (09:58)
[2016-12-17] MEDS: ASPIRIN EC 81 MG TABLET PO SCH (10:31)
--- NOTE | 2016-12-17 11:09 | Cardiology Progress Note ---
I, India Negrete RN, am scribing for, and in the presence of, Jesus Lazaro MD 11:04. Assessment and Plan - Time spent with patient Time spent with patient: Greater than 30 minutes (1) Chronic anticoagulation Status: Acute Assessment and plan: Chronically anticoagulated with Coumadin. INR 1.5 on December 16. We are restarting her warfarin and aspirin will need to monitor INRs closely. At present she is on levofloxacin which will potentiate her INRs and warfarin. I think this is going to be changed though. Current Visit: No (2) H/O mitral valve replacement with mechanical valve Status: Chronic Assessment and plan: Appears to be stable. She will require anticoagulation. Restarting her aspirin and warfarin. Current Visit: Yes (3) Elevated troponin Status: Acute Assessment and plan: EKG negative for ischemic finding. I think this elevation of troponin is inconsequential in the patient's situation. Current Visit: Yes (4) HIRO (acute kidney injury) Status: Acute Assessment and plan: patient is now on dialysis. Current Visit: Yes (5) Hypertension Status: Chronic Assessment and plan: Overall, fairly well controlled at this time. Current Visit: No (6) Anemia Status: Acute Assessment and plan: Transfused with 2 units PRBCs on December 14 with H&H of 7.1/22.9. HCT decreased slightly and H&H 8.4/26.8. Current Visit: Yes (7) Abdominal pain Status: Acute Assessment and plan: Improved. Resolved. Current Visit: Yes (8) Chronic GI bleeding Status: Chronic Assessment and plan: Has GI AV malformations. This will increase her risk of bleeding with warfarin which she has had before. Current Visit: Yes (9) Elevated liver enzymes Status: Acute Assessment and plan: This has improved since admission and current AST 135, ALT 238 on December 15. Current Visit: Yes (10) Hyperkalemia Status: Acute Assessment and plan: Resolved. K+ is 4.9 today. Current Visit: Yes (11) Pneumonia Status: Acute Assessment and plan: She is on IV antibiotic therapy. Current Visit: Yes (12) Positive blood cultures Status: Acute Assessment and plan: Currently on IV antibiotics. Blood cultures with gram-negative rods. Current Visit: Yes (13) Sepsis Status: Acute Assessment and plan: Blood cultures with gram (-) rods and urine culture positive for E. coli. Current Visit: Yes (14) UTI (urinary tract infection) Status: Acute Assessment and plan: Urine culture positive for E. coli. 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 Yañez is a 66-year-old white female with risk factor significant hypertension, diabetes, dyslipidemia, previously known history of CAD, current smoker. Past medical history includes mechanical mitral valve placement, myocardial infarction, multiple previously placed coronary artery stents, and coronary artery bypass grafting 3, hypothyroidism. She is on chronic warfarin therapy. She has been noted to have had difficulty with recurrent GI bleeding with AVMs on dual antiplatelet therapy. Patient also has a history of acute combined systolic and diastolic congestive heart failure, NYHA class III. Patient presented to [place] ER on December 13 complaining of generalized weakness with chest pain. Diagnostic workup revealed pneumonia, UTI, and acute renal failure with creatinine of 6.6. Of note, patient previously had a creatinine of 1.7 in July 2016. Blood culture with gram-negative rods and urine culture also with gram-negative rods. She has been transfused with 2 units PRBCs for H&H 7.1/22.9 on December 14, and posttransfusion H&H 8.6/27.6. Cardiology asked to see for chest pain with troponin level. At admission, patient had serial troponin levels with troponin 1.370, 1.430, and 1.200. EKG negative for acute ischemic finding. Echocardiogram on December 13 with mild LVH, moderately decreased LV systolic function with EF of 30%, mildly increased to an RA, severely increased LA, moderate TR with PA pressure 46 mmHg. On December 16 , patient had temporary right IJ dialysis catheter placed, and she was started on hemodialysis the same afternoon. December UPDATE: Ms. Yañez has been seen by gastroenterology for ongoing anemia. No further GI workup felt to be needed at this time. She was initiated on hemodialysis yesterday afternoon, and she appears to have tolerated this well. She is somewhat more alert this morning, and she is no acute distress. Denies chest pain, shortness of breath, or other anginal complaint. Today, creatinine is improved to 6.5 with BUN 82. H/H slightly decreased today and is 8.4/26.8. Hyperkalemia improved and today K+ is 4.9. Systolic BP ranging 130-155 mmHg. Pulse 70s and regular. Generally she is doing fairly well though. The patient needs to be restarted on her warfarin low-dose aspirin for her mechanical mitral valve. With a low- dose aspirin this may allow us to run her INR is a little on the lower side. Certainly she is at risk with her GI AV malformations to handle bleeding. She has had these previously. She though is at significant risk from a cardiac standpoint to have a CVA from her mechanical mitral valve. Her left atrium is dilated and this increase the risk. I have discussed this with Dr. Villasenor. I will also discussed this with the patient. Exam (Progress Note) - Constitutional Vitals: Period Temp Pulse Resp BP Sys/Eli Pulse Ox Last 24 Hr 96.8 F-98.2 F 71-89 16-20 133-156/49-68 93-96 Exam: General: No acute distress. Morbidly obese. The patient is drowsy but is responsive. She generally is more responsive today. HEENT: Normocephalic, sclera are clear there are no lid xanthelasmas noted. Oral mucosa is free of cyanosis or pallor. Neck: The neck is supple without JVD. Carotid upstrokes are normal volume and amplitude. There is no audible bruit. There is no palpable thyroid. Trachea is midline. Right IJ dialysis catheter intact with minimal bleeding at site. Lungs: Coarse lung sounds bilaterally without rales, rhonchi, or wheezes noted. There are decreased breath sounds at the bases bilaterally. Cardiovascular: The PMI is nondisplaced. No palpable thrill S3 or S4. There is a regular rate and rhythm with no murmur, rub, or gallop noted. Dorsalis pedis posterior tibial and femoral pulses are 2+ and equal bilaterally. Mechanical mitral valve clicks are noted. Abdomen: Abdomen is soft with normal active bowel sounds. Tenderness with palpation. There is no palpable mass or organomegaly noted. There is no midline bruit. Extremities exam: Present: 1+ pedal and pretibial edema. Absent: Cyanosis, clubbing. Skin: Present: warm and dry without ecchymosis, urticaria, skin rash, or suspicious lesion. Psych: Patient is not anxious. She is drowsy but responsive, and she is somnolent when awake. Musculoskeletal: There is no kyphosis or scoliosis noted. Result/EKG - Labs CBC & BMP: 12/17/16 05:10 12/17/16 05:10 Lab Results: I have reviewed the past 24 hour labs Labs: Laboratory Results - last 24 hr 12/14/16 12/16/16 12/16/16 09:24 10:51 11:05 WBC RBC Hgb Hct MCV MCH MCHC RDW Plt Count MPV Neut % (Auto) Lymph % (Auto) [place] % (Auto) Eos % (Auto) Baso % (Auto) Neut # (Auto) Lymph # (Auto) [place] # (Auto) Eos # (Auto) Baso # (Auto) Immature Gran % Nucleated RBC % Immature Gran # Nucleated RBCs # Platelet Estimate Hypochromasia Microcytosis Ovalocytes Morphology Comment INR 1.5 PT Patient/Control Mix 15.8 D Circ Anticoag PTT 40.6 H Sodium Potassium Chloride Carbon Dioxide Anion Gap BUN Creatinine GFR Calculation BUN/Creatinine Ratio Glucose POC Glucose 204 H Calculated Osmolality Calcium Transferrin 211 Hepatitis A IgM Ab Hep Bs Antigen Hep B Core IgM Ab Hepatitis C Antibody 12/16/16 12/16/16 12/16/16 17:28 20:22 Unknown WBC RBC Hgb Hct MCV MCH MCHC RDW Plt Count MPV Neut % (Auto) Lymph % (Auto) [place] % (Auto) Eos % (Auto) Baso % (Auto) Neut # (Auto) Lymph # (Auto) [place] # (Auto) Eos # (Auto) Baso # (Auto) Immature Gran % Nucleated RBC % Immature Gran # Nucleated RBCs # Platelet Estimate Hypochromasia Microcytosis Ovalocytes Morphology Comment INR PT Patient/Control Mix Circ Anticoag PTT Sodium Potassium Chloride Carbon Dioxide Anion Gap BUN Creatinine GFR Calculation BUN/Creatinine Ratio Glucose POC Glucose 192 H 186 H Calculated Osmolality Calcium Transferrin Hepatitis A IgM Ab Negative Hep Bs Antigen Negative Hep B Core IgM Ab Negative Hepatitis C Antibody Negative 12/17/16 12/17/16 12/17/16 05:10 05:10 07:20 WBC 7.1 RBC 3.40 L Hgb 8.4 L Hct 26.8 L MCV 78.8 L MCH 25 L MCHC 31.3 L RDW 20.5 H Plt Count 162 MPV 10.7 Neut % (Auto) 81.0 H Lymph % (Auto) 7.6 L [place] % (Auto) 10.0 Eos % (Auto) 0.7 Baso % (Auto) 0.1 Neut # (Auto) 5.8 Lymph # (Auto) 0.5 L [place] # (Auto) 0.7 Eos # (Auto) 0.1 Baso # (Auto) 0.0 Immature Gran % 0.6 Nucleated RBC % 1.1 Immature Gran # 0.04 Nucleated RBCs # 0.08 Platelet Estimate Normal Hypochromasia 1+ Microcytosis Slight Ovalocytes Slight Morphology Comment INR PT Patient/Control Mix Circ Anticoag PTT Sodium 132 L Potassium 4.9 Chloride 95 L Carbon Dioxide 24 Anion Gap 17.9 H BUN 82 H Creatinine 6.50 H GFR Calculation 8 BUN/Creatinine Ratio 12.00 Glucose 108 H POC Glucose 106 Calculated Osmolality 289.5 Calcium 7.1 L Transferrin Hepatitis A IgM Ab Hep Bs Antigen Hep B Core IgM Ab Hepatitis C Antibody - Diagnostic Findings Procedure: Chest x-ray: image reviewed by me, report reviewed by me (12/16/16: dialysis cather in place with distal tip within RA. hazy opacities within both lungs but improved on right, suggestive of pulm edema and/or pneumonia) - EKG EKG results: interpreted by me, no acute changes Tejas James John Timothy, MD, personally performed the services described in this documentation, ascribed by India Negrete RN in my presence, and it is both accurate and complete .
--- NOTE | 2016-12-17 12:03 | Event Note ---
Patient status post non-tunneled hemodialysis catheter placement as of 2016. Patient was able to dialyze using this access without complication. No local evidence of bleeding or hematoma. We will follow along and assist in obtaining more permanent access if required.
[2016-12-17] MEDS: cefTRIAXone 2,000 MG in SODIUM CHLORIDE 0.9% 100 ML IV SCH (12:04)
--- NOTE | 2016-12-17 12:06 | Hospitalist Progress Note ---
Assessment and Plan - Time spent with patient Time spent with patient: Greater than 30 minutes (1) Encephalopathy acute Status: Acute Assessment and plan: Mutifactorial, infectious and metabolic. Improving Current Visit: Yes (2) Sepsis Status: Acute Assessment and plan: Continue current management. Improving. Current Visit: Yes (3) Pneumonia Status: Acute Assessment and plan: Continue antibiotics. Current Visit: Yes (4) UTI (urinary tract infection) Status: Acute Assessment and plan: Switch antibiotics to ceftriaxone. Gram-negative rods E. coli. Current Visit: Yes (5) Abdominal pain Status: Acute Assessment and plan: Improving. Continue PPI. Current Visit: Yes (6) HIRO (acute kidney injury) Status: Acute Assessment and plan: Dialysis catheter placed and received dialysis yesterday. Current Visit: Yes (7) Urinary retention Status: Acute Assessment and plan: Intermitted catheterizations, Urology consulted, appreciate their recommendations. Current Visit: Yes (8) Elevated liver enzymes Status: Acute Assessment and plan: Likely secondary to shock liver due to hypotension possibly from sepsis. Levels are dramatically improving. Current Visit: Yes (9) Elevated troponin Status: Acute Assessment and plan: Cardiology has been consulted, defer to them. Current Visit: Yes (10) H/O mitral valve replacement with mechanical valve Status: Chronic Assessment and plan: Restarting anticoagulation. Current Visit: Yes (11) Hyperkalemia Status: Acute Assessment and plan: Resolved. Current Visit: Yes (12) Congestive heart failure Status: Acute Assessment and plan: Improved. Current Visit: No (13) Positive blood cultures Status: Acute Assessment and plan: GNR, switched to Rocephin. Current Visit: Yes (14) Anemia Status: Acute Assessment and plan: Stable. Transfuse as needed. Current Visit: Yes Hospitalist: Subjective Interval history: Dialysis catheter placed yesterday and has received dialysis. No complaints overnight events. Exam - Constitutional Vitals: Period Temp Pulse Resp BP Sys/Eli Pulse Ox Last 24 Hr 96.7 F-98.2 F 71-89 16-20 133-156/49-82 93-96 General appearance: no acute distress, over weight - Head Head exam: Present: normocephalic, atraumatic - Eye Eye exam: Present: EOMI Pupils: Present: IRWIN - ENT ENT exam: Present: normal exam - Neck Neck exam: Present: normal inspection - Respiratory Respiratory exam: Present: other (Coarse breath sounds bilaterally). Absent: rhonchi, wheezes - Cardiovascular Cardiovascular exam: Present: regular rate and rhythm. Absent: gallop, rubs, systolic murmur - GI/Abdominal GI/Abdominal exam: Present: normal bowel sounds, soft. Absent: distended, firm , guarding, tenderness, rebound - Extremities Exam Extremities exam: Present: normal inspection. Absent: calf tenderness, edema Results - Labs CBC & BMP: 12/17/16 05:10 12/17/16 05:10 Lab Results: I have reviewed the past 24 hour labs
[2016-12-17] MEDS: LEVOFLOXACIN INJ 500 MG in PREMIX 1 EACH IV SCH (17:12)
--- NOTE | 2016-12-17 17:30 | Gastrointestinal Progress Note ---
Assessment and Plan (1) Small bowel arteriovenous malformation Status: Chronic Assessment and plan: This was discovered by upper endoscopy by Dr. Moctezuma during his last scope on this patient back on 02/13/16. The patient was also previously been noted to have AVMs in her small bowel by Dr. Du on his capsule endoscopy done in . Minimizing the amount of anticoagulation this patient is given is really the only treatment for these although it would be possible to cauterize more proximal lesions the jejunal involvement cannot be reached without a double balloon endoscopy which is only available in several research centers across the country. This being said, the patient's hematocrit is not decreased significantly from when I saw her back in February 2016. She may be able to get by with occasional blood transfusion and iron supplementation as well as use of bone marrow stimulants (erythropoietin and Aranesp) as you are doing. She could be placed on Protonix twice daily but there is little else to add to her regimen currently. I would try and keep her INR is close to 2.5 is possible considering her mechanical mitral valve. 12/17/16--The patient's INR was down to 1.5 yesterday. She has a history of mechanical mitral valve but also AVM in the proximal and distal small bowel likely the source of some of her bleeding recently. She could likely be restarted on some anticoagulation to protect her heart valve at this point, would suggest something that might be easily stopped such as Lovenox or heparin. She is not eating much and I suspect this is likely due to uremia. I have discussed with her trying to eat something in order to avoid placement of feeding tubes in the future. She does not seem to be disturbed by the idea. We will watch and see how her appetite picks up as she initiates dialysis. Current Visit: No (2) Elevated liver enzymes Status: Acute Assessment and plan: Given the rapidity of improvement of these wildly elevated liver function tests I suspect that the patient had an episode of ischemic hepatitis. This is not uncommon given the sepsis experience with gram-negative rods with E. coli in her urine. They have already started to normalize. Supportive care is all that is required. I do not believe that this patient has hepatic encephalopathy but rather anoxic encephalopathy. She will not benefit from use of lactulose. 12/17/16--We Will check these again tomorrow. Current Visit: Yes (3) Anemia Status: Acute Assessment and plan: The patient does have some multifactorial anemia that is likely due to bone marrow suppression with her current renal dysfunction, gastritis, anemia of chronic disease with her comorbidities, nutritional deficiencies, and of course bleeding from the AVMs in light of use of anticoagulation. Agree with your use of iron, pantoprazole to block her acid and should the need arise use of bone marrow stimulant agents as mentioned previously. I do not believe that she requires a repeat upper endoscopy, colonoscopy, or capsule endoscopy. These have been done recently. 12/17/16--We need to continue to observe the patient's hematocrit as anticoagulation is restarted in the near future. Agree with continued pantoprazole, observe for further melena or bright red blood per rectum. Current Visit: Yes (4) Encephalopathy acute Status: Acute Assessment and plan: As mentioned above this is likely anoxic encephalopathy, not hepatic encephalopathy. With supportive care this may improve over time. 12/17/16--Observe for now. No need for lactulose. Current Visit: Yes Gastroenterology - PN: Subj Interval history: The patient is not eating any of her lunch or supper trays according to the daughter who is at the bedside. She does not want to even attempt to eat them. She states that she has no appetite. I attribute this to the uremia but also potentially to the anoxic encephalopathy adding to the confusion. Exam (Progress Note) - Constitutional Vitals: Period Temp Pulse Resp BP Sys/Eli Pulse Ox Last 24 Hr 96.2 F-98.2 F 71-109 16-20 133-156/49-92 91-96 General appearance: mild distress - Head Head exam: Present: normocephalic - Eye Eye exam: Present: EOMI Pupils: Present: IRWIN - Respiratory Respiratory exam: Present: clear to auscultation bilaterally - Cardiovascular Cardiovascular exam: Present: regular rate and rhythm. Absent: irregular rhythm - GI/Abdominal GI/Abdominal exam: Present: normal bowel sounds, soft. Absent: distended, guarding, tenderness, rebound - Extremities Exam Extremities exam: Present: edema - Neurological Exam Neurological exam: Present: altered (Mild to moderately confused) - Psychiatric Psychiatric exam: Present: normal mood, flat affect. Absent: agitated, anxious - Skin Skin exam: Present: warm Results - Labs CBC & BMP: 12/17/16 05:10 12/17/16 05:10
[2016-12-17] MEDS ORDERED: LORazepam 0.5 MG TABLET PO PRN (17:50)
[2016-12-18 05:35] LABS: Calcium 7.3 MG/DL (8.5-10.1); Osmolality,Calculated 285.5 MOS/KG (273-304); Potassium 4.5 MMOL/L (3.5-5.1)
[2016-12-18 05:36] LABS: Albumin 2.4 G/DL (3.4-5.0); Calcium 7.4 MG/DL (8.5-10.1); Osmolality,Calculated 285.5 MOS/KG (273-304); Phosphorous 5.1 MG/DL (2.5-4.9); Potassium 4.5 MMOL/L (3.5-5.1)
[2016-12-18 05:39] LABS: Albumin 2.3 G/DL (3.4-5.0); Bilirubin,Direct 0.2 MG/DL (0.0-0.20); Bilirubin,Total 1.2 MG/DL (0.2-1.0)
[2016-12-18 08:49] LABS: INR 1.5; PT Patient Result 16.2 SECS
--- NOTE | 2016-12-18 09:09 | Nephrology Progress Note ---
Nephrology - PN: Subj Interval history: Patient seen on hemodialysis, she is tolerating this well will continue her treatment unchanged. Of note the patient had about thousand cc of urine output yesterday per the medical record, her blood urea nitrogen decreased from yesterday as well her creatinine were increased slightly. We will continue to monitor her acute renal failure. Physical exam general the patient is chronically ill-appearing, she knew that she was in [facility] however she thought the year was 1949, and continued to be unable to answer this question despite repeated attempts and clarifications. Exam (PN)-Nephrology - Vital Signs Vital signs: Period Temp Pulse Resp BP Sys/Eli Pulse Ox Last 24 Hr 96.2 F-97.6 F 78-109 18-20 147-179/75-92 91-97 - Lab 12/17/16 05:10 12/18/16 04:31 Most recent lab results Calcium 7.4 MG/DL (8.5-10.1) L 12/18/16 04:31 Phosphorus 5.1 MG/DL (2.5-4.9) H 12/18/16 04:31 Assessment and Plan (1) Acute renal failure Status: Acute Assessment and plan: This patient has some baseline chronic renal insufficiency related to diabetes and hypertension, and now has acute renal failure with a creatinine of around 7 mg/dL, this may be related to poor p.o. intake, as well as her infection with her UTI and possible occult hypoperfusion and hypotension related to her anemia. Will check a fractional excretion of urea nitrogen and sodium, I am going to start her on some IV fluids will also check a renal ultrasound and a bladder scan for urinary retention. Current Visit: Yes (2) Anemia Status: Acute Assessment and plan: I would have a low threshold for transfusing her. Current Visit: Yes (3) Elevated liver enzymes Status: Acute Assessment and plan: This may go along with some occult hypotension and shock liver Current Visit: Yes (4) Generalized weakness Status: Acute Current Visit: Yes (5) History of prosthetic mitral valve Status: Acute Current Visit: Yes (6) Pneumonia Status: Acute Assessment and plan: I agree with IV antibiotics Current Visit: Yes (7) UTI (urinary tract infection) Status: Acute Current Visit: Yes
[2016-12-18] MEDS: INSULIN LISPRO 100 UNIT/ML SUBCUT SCH ×4 (10:33→20:59)
[2016-12-18] MEDS: DEXTROSE IV SCH ×2 (10:33→12:23)
[2016-12-18] MEDS: MULTIVITAMIN IV SCH ×2 (10:33→12:23)
[2016-12-18] MEDS: THIAMINE IV SCH ×2 (10:33→12:23)
--- NOTE | 2016-12-18 10:55 | Cardiology Progress Note ---
Caden James Vanessa, RN, am scribing for, and in the presence of, Jesus Lazaro MD 10:50. Assessment and Plan - Time spent with patient Time spent with patient: Greater than 30 minutes (1) Chronic anticoagulation Status: Acute Assessment and plan: Chronically anticoagulated with Coumadin. Coumadin and aspirin were restarted yesterday, and we are monitoring INR closely. INR today is 1.5. She continues to be on Levaquin. Current Visit: No (2) H/O mitral valve replacement with mechanical valve Status: Chronic Assessment and plan: Appears to be stable. She will require anticoagulation. Both aspirin and Coumadin have been restarted. Current Visit: Yes (3) HIRO (acute kidney injury) Status: Acute Assessment and plan: She has been initiated on hemodialysis. Nephrology is managing. Current Visit: Yes (4) Hypertension Status: Chronic Assessment and plan: This is suboptimally controlled today. Current Visit: No (5) Anemia Status: Acute Assessment and plan: Transfused with 2 units PRBCs on December 14 with H&H of 7.1/22.9. Last H&H on November 16 8.4/26.8. No labs available this morning for review. 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 Plavix, Brilinta with aspirin). Gastroenterology has evaluated this admission. Of course, restarting will increase her risk of bleeding. We will need to monitor this with the patient will be at high risk of stroke without anticoagulation with her mechanical mitral valve and dilated left atrium. Current Visit: Yes (7) Elevated liver enzymes Status: Acute Assessment and plan: This has improved since admission and current AST 38, ALT 359 today Current Visit: Yes (8) Hyperkalemia Status: Acute Assessment and plan: Resolved. K+ is 4.5 today. Current Visit: Yes (9) Pneumonia Status: Acute Assessment and plan: She is on IV antibiotic therapy. Current Visit: Yes (10) Positive blood cultures Status: Acute Assessment and plan: Currently on IV antibiotics. Blood cultures also positive for E. coli. Repeat cultures drawn December 16 negative at 24 hours. Current Visit: Yes (11) Sepsis Status: Acute Assessment and plan: Urine and blood culture positive for E. coli. This is being managed by primary service. Current Visit: Yes (12) UTI (urinary tract infection) Status: Acute Assessment and plan: Urine culture positive for E. coli. Managed by primary service. Current Visit: Yes Cardiology - PN: Subj Interval history: PRIMARY RADIOGRAPHER CARDIAC CATHETERIZATION: DR. 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 Yañez is a 66-year-old white female with risk factor significant hypertension, diabetes, dyslipidemia, previously known history of CAD, current smoker. Past medical history includes mechanical mitral valve placement, myocardial infarction, multiple previously placed coronary artery stents, and coronary artery bypass grafting 3, hypothyroidism. She is on chronic warfarin therapy. She has been noted to have had difficulty with recurrent GI bleeding with AVMs on dual antiplatelet therapy. Patient also has a history of acute combined systolic and diastolic congestive heart failure, NYHA class III. Patient presented to [facility] on December 13 complaining of generalized weakness with chest pain. Diagnostic workup revealed pneumonia, UTI, and acute renal failure with creatinine of 6.6. Of note, patient previously had a creatinine of 1.7 in July 2016. Blood culture with gram-negative rods and urine culture also with gram-negative rods. She has been transfused with 2 units PRBCs for H&H 7.1/22.9 on December 14, and posttransfusion H&H 8.6/27.6. Cardiology asked to see for chest pain with troponin level. At admission, patient had serial troponin levels with troponin 1.370, 1.430, and 1.200. EKG negative for acute ischemic finding. Echocardiogram on December 13 with mild LVH, moderately decreased LV systolic function with EF of 30%, mildly increased to an RA, severely increased LA, moderate TR with PA pressure 46 mmHg. On December 16 , patient had temporary right IJ dialysis catheter placed, and she was started on hemodialysis the same afternoon. December UPDATE: Ms. Yañez is seen hemodialysis this morning. Patient's daughter reports that patient did not sleep well overnight, and she was awake most of the night, and she was confused trying to get out of bed. Reports patient's appetite is minimal to none, and she is taking a few bites of regular diet, and the reports that she is not hungry. Systolic 150-180 mmHg. Labs reviewed. INR 1.5 today. Creatinine 6.6 with BUN 78. K+ 4.5. She did get an extra dose of warfarin and also back on her regular dosing. Exam (Progress Note) - Constitutional Vitals: Period Temp Pulse Resp BP Sys/Eli Pulse Ox Last 24 Hr 96.2 F-97.6 F 78-109 18-20 147-179/75-92 91-97 Exam: General: No acute distress. Morbidly obese. The patient is drowsy but is responsive. On dialysis at the time. HEENT: Normocephalic, sclera are clear there are no lid xanthelasmas noted. Oral mucosa is free of cyanosis or pallor. Neck: The neck is supple without JVD. Carotid upstrokes are normal volume and amplitude. There is no audible bruit. There is no palpable thyroid. Trachea is midline. Right IJ dialysis catheter intact with minimal bleeding at site. Lungs: Coarse lung sounds bilaterally without rales, rhonchi, or wheezes noted. There are decreased breath sounds at the bases bilaterally. Cardiovascular: The PMI is nondisplaced. No palpable thrill S3 or S4. There is a regular rate and rhythm with no murmur, rub, or gallop noted. Dorsalis pedis posterior tibial and femoral pulses are 2+ and equal bilaterally. Mechanical valve clicks are noted. Abdomen: Abdomen is soft with normal active bowel sounds. Tenderness with palpation. There is no palpable mass or organomegaly noted. There is no midline bruit. Extremities exam: Present: 1+ pedal and pretibial edema. Absent: Cyanosis, clubbing. Skin: Present: warm and dry without ecchymosis, urticaria, skin rash, or suspicious lesion. Psych: Patient is not anxious. She is drowsy but responsive, and she is somnolent when awake. Musculoskeletal: There is no kyphosis or scoliosis noted. Result/EKG - Labs CBC & BMP: 12/17/16 05:10 12/18/16 04:31 Lab Results: I have reviewed the past 24 hour labs Labs: Laboratory Results - last 24 hr 12/17/16 12/17/16 12/17/16 11:06 16:33 19:55 INR PT Patient/Control Mix Sodium Potassium Chloride Carbon Dioxide Anion Gap BUN Creatinine GFR Calculation BUN/Creatinine Ratio Glucose POC Glucose 140 H 210 H 173 H Calculated Osmolality Calcium Phosphorus Total Bilirubin Direct Bilirubin Indirect Bilirubin AST ALT Alkaline Phosphatase Total Protein Albumin 12/18/16 12/18/16 12/18/16 04:31 04:31 04:31 INR PT Patient/Control Mix Sodium 132 L 132 L Potassium 4.5 4.5 Chloride 95 L 95 L Carbon Dioxide 24 24 Anion Gap 17.5 H 17.5 H BUN 77 H 78 H Creatinine 6.70 H 6.60 H GFR Calculation 8 8 BUN/Creatinine Ratio 11.00 11.00 Glucose 75 74 POC Glucose Calculated Osmolality 285.5 285.5 Calcium 7.3 L 7.4 L Phosphorus 5.1 H Total Bilirubin 1.20 H Direct Bilirubin 0.20 Indirect Bilirubin 1.0 AST 38 H ALT 359 H Alkaline Phosphatase 106 Total Protein 6.0 L Albumin 2.4 L 2.3 L 12/18/16 12/18/16 07:09 08:22 INR 1.5 PT Patient/Control Mix 16.2 Sodium Potassium Chloride Carbon Dioxide Anion Gap BUN Creatinine GFR Calculation BUN/Creatinine Ratio Glucose POC Glucose 107 H Calculated Osmolality Calcium Phosphorus Total Bilirubin Direct Bilirubin Indirect Bilirubin AST ALT Alkaline Phosphatase Total Protein Albumin - EKG EKG results: interpreted by me, no acute changes EKG shows: sinus rhythm Tejas James John Timothy, MD, personally performed the services described in this documentation, ascribed by India Negrete RN in my presence, and it is both accurate and complete 055 .
[2016-12-18] MEDS: cefTRIAXone 2,000 MG in SODIUM CHLORIDE 0.9% 100 ML IV SCH (11:46)
[2016-12-18] MEDS: ASPIRIN EC 81 MG TABLET PO SCH (11:47)
[2016-12-18] MEDS: amLODIPine 5 MG TABLET PO SCH (11:47)
[2016-12-18] MEDS: PANTOPRAZOLE 40 MG VIAL IV SCH ×2 (11:48→21:04)
[2016-12-18] MEDS: ISOSORBIDE MONONITRATE 60 MG TABLET PO SCH ×2 (11:48→21:04)
[2016-12-18] MEDS: AMITRIPTYLINE 25 MG TABLET PO SCH (11:48)
--- NOTE | 2016-12-18 12:14 | Hospitalist Progress Note ---
Assessment and Plan - Time spent with patient Time spent with patient: Greater than 30 minutes (1) Encephalopathy acute Status: Acute Assessment and plan: Mutifactorial, infectious and metabolic. Still is somnolent but easily arousable. Current Visit: Yes (2) Sepsis Status: Acute Assessment and plan: Continue current management. Improving. Current Visit: Yes (3) Pneumonia Status: Acute Assessment and plan: Continue antibiotics. Current Visit: Yes (4) UTI (urinary tract infection) Status: Acute Assessment and plan: Continue ceftriaxone. Current Visit: Yes (5) Abdominal pain Status: Acute Assessment and plan: Resolved. Current Visit: Yes (6) HIRO (acute kidney injury) Status: Acute Assessment and plan: Dialysis catheter placed and received dialysis yesterday. Current Visit: Yes (7) Urinary retention Status: Acute Assessment and plan: Intermitted catheterizations, Urology consulted, appreciate their recommendations. Current Visit: Yes (8) Elevated liver enzymes Status: Acute Assessment and plan: Likely secondary to shock liver due to hypotension possibly from sepsis. Levels are dramatically improving. Current Visit: Yes (9) Elevated troponin Status: Acute Assessment and plan: Cardiology has been consulted, defer to them. Current Visit: Yes (10) H/O mitral valve replacement with mechanical valve Status: Chronic Assessment and plan: Continue anticoagulation. Current Visit: Yes (11) Congestive heart failure Status: Acute Assessment and plan: Improved. Current Visit: No (12) Positive blood cultures Status: Acute Assessment and plan: Continue Rocephin. Current Visit: Yes (13) Anemia Status: Acute Assessment and plan: Stable. Transfuse as needed. Current Visit: Yes Hospitalist: Subjective Interval history: Ms. Yañez appears comfortable this morning she is in dialysis. She is somnolent but smiles when awakened. Exam - Constitutional Vitals: Period Temp Pulse Resp BP Sys/Eli Pulse Ox Last 24 Hr 96.2 F-97.6 F 78-109 18-20 147-179/75-92 91-97 General appearance: no acute distress - Head Head exam: Present: normocephalic, atraumatic - Eye Eye exam: Present: EOMI Pupils: Present: IRWIN - ENT ENT exam: Present: normal exam - Neck Neck exam: Present: normal inspection - Respiratory Respiratory exam: Present: clear to auscultation bilaterally. Absent: rhonchi, wheezes - Cardiovascular Cardiovascular exam: Present: regular rate and rhythm. Absent: gallop, rubs, systolic murmur - GI/Abdominal GI/Abdominal exam: Present: normal bowel sounds, soft. Absent: distended, firm , guarding, tenderness, rebound - Extremities Exam Extremities exam: Present: normal inspection. Absent: calf tenderness, edema Results - Labs CBC & BMP: 12/17/16 05:10 12/18/16 04:31 Lab Results: I have reviewed the past 24 hour labs
--- NOTE | 2016-12-18 18:01 | Gastrointestinal Progress Note ---
Assessment and Plan (1) Small bowel arteriovenous malformation Status: Chronic Assessment and plan: This was discovered by upper endoscopy by Dr. Moctezuma during his last scope on this patient back on 02/13/16. The patient was also previously been noted to have AVMs in her small bowel by Dr. Du on his capsule endoscopy done in . Minimizing the amount of anticoagulation this patient is given is really the only treatment for these although it would be possible to cauterize more proximal lesions the jejunal involvement cannot be reached without a double balloon endoscopy which is only available in several research centers across the country. This being said, the patient's hematocrit is not decreased significantly from when I saw her back in February 2016. She may be able to get by with occasional blood transfusion and iron supplementation as well as use of bone marrow stimulants (erythropoietin and Aranesp) as you are doing. She could be placed on Protonix twice daily but there is little else to add to her regimen currently. I would try and keep her INR is close to 2.5 is possible considering her mechanical mitral valve. 12/17/16--The patient's INR was down to 1.5 yesterday. She has a history of mechanical mitral valve but also AVM in the proximal and distal small bowel likely the source of some of her bleeding recently. She could likely be restarted on some anticoagulation to protect her heart valve at this point, would suggest something that might be easily stopped such as Lovenox or heparin. She is not eating much and I suspect this is likely due to uremia. I have discussed with her trying to eat something in order to avoid placement of feeding tubes in the future. She does not seem to be disturbed by the idea. We will watch and see how her appetite picks up as she initiates dialysis. 12/18/16--The patient's liver function tests continue to improve. These will likely return to normal again over time. She remains extremely confused and not eating much oral sustenance at all. She does not wish to have a PEG tube she does not wish to have a Dobbhoff feeding tube and I am not clear as to what the long-term strategy will be for her. Her hematocrit seems stable and she has multifactorial reasons for the anemia at this point does not appear to be having dominick blood in her stool. Agree that she needs to be back on anticoagulation due to her mitral valve and dilated cardiomyopathy. If she develops dominick bleeding will be happy to see the patient back again and perform upper or lower endoscopy as appropriate. She sees been stable at this point from a GI standpoint and I will sign off of the case for now. Current Visit: No (2) Elevated liver enzymes Status: Acute Assessment and plan: Given the rapidity of improvement of these wildly elevated liver function tests I suspect that the patient had an episode of ischemic hepatitis. This is not uncommon given the sepsis experience with gram-negative rods with E. coli in her urine. They have already started to normalize. Supportive care is all that is required. I do not believe that this patient has hepatic encephalopathy but rather anoxic encephalopathy. She will not benefit from use of lactulose. 12/17/16--We Will check these again tomorrow. 12/18/16--The patient's only remaining elevated liver function tests as the ALT which continues to drop over time. I suspect another week or 2 she will be normal. This is all consistent with ischemic hepatitis and the patient's mental status changes are not reflective of a hepatic encephalopathy but rather anoxic encephalopathy. If she fails to respond and the family wishes to have the patient undergo PEG tube placement, would be happy to provide the service in the future. At present, she seems to be wholly against the idea of PEG tube placement. Current Visit: Yes (3) Anemia Status: Acute Assessment and plan: The patient does have some multifactorial anemia that is likely due to bone marrow suppression with her current renal dysfunction, gastritis, anemia of chronic disease with her comorbidities, nutritional deficiencies, and of course bleeding from the AVMs in light of use of anticoagulation. Agree with your use of iron, pantoprazole to block her acid and should the need arise use of bone marrow stimulant agents as mentioned previously. I do not believe that she requires a repeat upper endoscopy, colonoscopy, or capsule endoscopy. These have been done recently. 12/17/16--We need to continue to observe the patient's hematocrit as anticoagulation is restarted in the near future. Agree with continued pantoprazole, observe for further melena or bright red blood per rectum. 12/18/16--continue to observe the patient's hematocrit has anticoagulation is restarted. Please reconsult me if she develops significant GI bleeding. Current Visit: Yes (4) Encephalopathy acute Status: Acute Assessment and plan: As mentioned above this is likely anoxic encephalopathy, not hepatic encephalopathy. With supportive care this may improve over time. 12/17/16--Observe for now. No need for lactulose. Current Visit: Yes Gastroenterology - PN: Subj Interval history: The patient is still avoiding all food and has very little p.o. intake. She is starting to get dialyzed at this point and is more conversant than she was yesterday but still quite confused. She does not want to have a tube in her nose she does not want to have a PEG tube placed. She refuses to answer however when we talk about her basic nutritional needs. Exam (Progress Note) - Constitutional Vitals: Period Temp Pulse Resp BP Sys/Eli Pulse Ox Last 24 Hr 97.1 F-98.0 F 78-96 18-20 151-179/75-86 91-97 General appearance: no acute distress - Eye Eye exam: Present: EOMI - Respiratory Respiratory exam: Present: clear to auscultation bilaterally - Cardiovascular Cardiovascular exam: Present: regular rate and rhythm - GI/Abdominal GI/Abdominal exam: Present: distended, hypoactive bowel sounds, soft. Absent: guarding, tenderness, rebound - Extremities Exam Extremities exam: Present: edema - Neurological Exam Neurological exam: Present: alert, altered (Confused, unable to follow two-part commands) - Psychiatric Psychiatric exam: Present: flat affect - Skin Skin exam: Present: warm Results - Labs CBC & BMP: 12/17/16 05:10 12/18/16 04:31
[2016-12-18] MEDS: WARFARIN 5 MG TABLET PO SCH (18:13)
[2016-12-19 06:24] LABS: Basophils % 0.3 % (0.0-0.8); Eosinophils # 0.1 10*3/uL (0.0-0.87); Hematocrit 28.4 VOL% (35.7-47.0); Immature Granulocytes % 0.6 %; Immature Granulocytes Absolute 0.04 #; Mean Corpuscular HGB Conc 31.7 GM/DL (32-36); Mean Corpuscular Hemoglobin 25 PG (27-34); Mean Corpuscular Volume 78.7 FL (87-102); Mean Platelet Volume 10.8 FL (9.6-12.0); Monocytes # 0.8 10*3/uL (0.11-0.8); Monocytes % 11.8 % (1.7-12.7); NRBC # 0.02 10*3/uL; Neutrophils # 4.9 10*3/uL (1.4-7.4); Neutrophils % 71.3 % (38.7-73.9); Platelet Count 228 T/CUMM (130-400); Red Blood Count 3.61 MC/CUMM (3.8-5.5); Red Cell Distribution Width 20.5 % (9.3-17.3); White Blood Count 6.8 T/CUMM (4-12)
[2016-12-19 07:02] LABS: Albumin 2.2 G/DL (3.4-5.0); Calcium 7.4 MG/DL (8.5-10.1); Osmolality,Calculated 284.8 MOS/KG (273-304); Potassium 4.6 MMOL/L (3.5-5.1)
[2016-12-19] MEDS: THIAMINE IV SCH ×3 (08:15→21:17)
[2016-12-19] MEDS: DEXTROSE IV SCH ×3 (08:15→21:17)
[2016-12-19] MEDS: INSULIN LISPRO 100 UNIT/ML SUBCUT SCH ×4 (08:15→21:38)
[2016-12-19] MEDS: MULTIVITAMIN IV SCH ×3 (08:15→21:17)
[2016-12-19] MEDS ORDERED: HEPARIN 10,000 UNIT/10 ML VIAL IV SCH (09:00)
--- NOTE | 2016-12-19 09:15 | Dialysis Note ---
Dialysis Note - Dialysis Note Ms. Yañez is seen during her hemodialysis. She is stable and tolerating dialysis well. Plan is to continue to support with hemodialysis.
--- NOTE | 2016-12-19 10:30 | Nephrology Progress Note ---
Nephrology - PN: Subj Interval history: Patient is seen on hemodialysis, she is more coherent today, she is oriented to place and the year. Physical exam general the patient is chronically ill-appearing, she has trace pretibial edema Assessment/plan 1. Acute renal failure-this patient had a creatinine baseline of around 1.8 mg/dL, she presented with pneumonia and a urinary tract infection and increased creatinine of 6 mg/dL which progressively worsened and is now requiring hemodialysis, I suspect she had an ATN injury related to her infectious process and malperfusion to her kidneys. Patient is now dialyzed 3 times a think she will be okay to go without dialysis through the weekend. 2. E. coli bacteremia-this patient had E. coli grow out of her blood and her urine. Continue levofloxacin 3. Pneumonia 4. Altered mental status-this patient's mentation seems to be improving since starting hemodialysis. Exam (PN)-Nephrology - Vital Signs Vital signs: Period Temp Pulse Resp BP Sys/Eli Pulse Ox Last 24 Hr 96.3 F-98.0 F 75-96 16-20 123-154/65-80 94-97 - Lab 12/19/16 05:11 12/19/16 05:11 Most recent lab results Calcium 7.4 MG/DL (8.5-10.1) L 12/19/16 05:11 Phosphorus 5.0 MG/DL (2.5-4.9) H 12/19/16 05:11 Assessment and Plan (1) Acute renal failure Status: Acute Assessment and plan: This patient has some baseline chronic renal insufficiency related to diabetes and hypertension, and now has acute renal failure with a creatinine of around 7 mg/dL, this may be related to poor p.o. intake, as well as her infection with her UTI and possible occult hypoperfusion and hypotension related to her anemia. Will check a fractional excretion of urea nitrogen and sodium, I am going to start her on some IV fluids will also check a renal ultrasound and a bladder scan for urinary retention. Current Visit: Yes (2) Anemia Status: Acute Assessment and plan: I would have a low threshold for transfusing her. Current Visit: Yes (3) Elevated liver enzymes Status: Acute Assessment and plan: This may go along with some occult hypotension and shock liver Current Visit: Yes (4) Generalized weakness Status: Acute Current Visit: Yes (5) History of prosthetic mitral valve Status: Acute Current Visit: Yes (6) Pneumonia Status: Acute Assessment and plan: I agree with IV antibiotics Current Visit: Yes (7) UTI (urinary tract infection) Status: Acute Current Visit: Yes
[2016-12-19 11:21] LABS: INR 1.7; PT Patient Result 18.1 SECS
[2016-12-19] MEDS: ISOSORBIDE MONONITRATE 60 MG TABLET PO SCH ×2 (11:37→20:07)
[2016-12-19] MEDS: AMITRIPTYLINE 25 MG TABLET PO SCH (11:37)
[2016-12-19] MEDS: amLODIPine 5 MG TABLET PO SCH (11:38)
[2016-12-19] MEDS: ASPIRIN EC 81 MG TABLET PO SCH (11:38)
--- NOTE | 2016-12-19 11:42 | Cardiology Progress Note ---
Caden James Vanessa, RN, am scribing for, and in the presence of, Jesus Lazaro MD 11:32. Assessment and Plan - Time spent with patient Time spent with patient: Greater than 30 minutes (1) Chronic anticoagulation Status: Acute Assessment and plan: Chronically anticoagulated with Coumadin. Coumadin and aspirin were restarted yesterday, and we are monitoring INR closely. INR today is 1.7 and increased. Current Visit: No (2) H/O mitral valve replacement with mechanical valve Status: Chronic Assessment and plan: Appears to be stable. She will require anticoagulation due to mitral valve presents, and her aspirin and Coumadin have both been restarted. Current Visit: Yes (3) HIRO (acute kidney injury) Status: Acute Assessment and plan: She has been initiated on hemodialysis. Nephrology is managing. Current Visit: Yes (4) Hypertension Status: Chronic Assessment and plan: Blood pressures are more well controlled today. Current Visit: No (5) Anemia Status: Acute Assessment and plan: Require 2 units PRBCs on December 14 with H&H 7.1/22.9. Anemia stable since that time. Monitor closely. 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 Plavix, Brilinta with aspirin). Gastroenterology has evaluated this admission. Of course, restarting will increase her risk of bleeding. Continue to monitor closely. Current Visit: Yes (7) Elevated liver enzymes Status: Acute Assessment and plan: This has improved since admission and most recent AST 38, ALT 359 on December 18. Current Visit: Yes (8) Pneumonia Status: Acute Assessment and plan: She is on IV antibiotic therapy. Current Visit: Yes (9) UTI (urinary tract infection) Status: Acute Assessment and plan: Urine culture positive for E. coli. Managed by primary service. Current Visit: Yes Cardiology - PN: Subj Interval history: PRIMARY FOUNDER AND CEO: DR. WHITMORE Ms. Yañez is seen and examined in hemodialysis unit again this morning. She is drowsy but arousable. Denies discomfort, shortness of breath, or other complaint at this time. Appetite remains decreased. No overt signs of bleeding since restarting aspirin and Coumadin. INR today 1.7. H&H improved today at 9.0/28.4. Systolic BP appears to be improved since previous exam. Repeat blood cultures were negative. Labs reviewed. As previous. Potassium is 4.6, and her creatinine continues to trend downward as 4.6 today with a BUN 44. Overall, from a cardiac standpoint she appears to remain stable. She generally has done well from cardiac standpoint remains stable. Exam (Progress Note) - Constitutional Vitals: Period Temp Pulse Resp BP Sys/Eli Pulse Ox Last 24 Hr 96.3 F-98.0 F 75-96 16-20 123-154/65-80 94-97 Exam: General: No acute distress. Morbidly obese. Drowsy but arousable and responsive. HEENT: Normocephalic, sclera are clear there are no lid xanthelasmas noted. Oral mucosa is free of cyanosis or pallor. Neck: The neck is supple without JVD. Carotid upstrokes are normal volume and amplitude. There is no audible bruit. There is no palpable thyroid. Trachea is midline. Right IJ dialysis catheter intact. Lungs: Coarse lung sounds bilaterally without rales, rhonchi, or wheezes noted. There are decreased breath sounds at the bases bilaterally. Cardiovascular: The PMI is nondisplaced. No palpable thrill S3 or S4. There is a regular rate and rhythm with no murmur, rub, or gallop noted. Dorsalis pedis posterior tibial and femoral pulses are 2+ and equal bilaterally. Mechanical valve clicks are noted. Abdomen: Abdomen is soft with normal active bowel sounds. Tenderness with palpation. There is no palpable mass or organomegaly noted. There is no midline bruit. Extremities exam: Present: 1+ pedal and pretibial edema. Absent: Cyanosis, clubbing. Skin: Present: warm and dry without ecchymosis, urticaria, skin rash, or suspicious lesion. Neuro/psych: Patient is not anxious. She is drowsy but responsive, and she is somnolent when awake. She does answer questions. Musculoskeletal: There is no kyphosis or scoliosis noted. Result/EKG - Labs CBC & BMP: 12/19/16 05:11 12/19/16 05:11 Lab Results: I have reviewed the past 24 hour labs (INR now 1.7.) Labs: Laboratory Results - last 24 hr 12/18/16 12/18/16 12/18/16 11:35 16:49 20:07 WBC RBC Hgb Hct MCV MCH MCHC RDW Plt Count MPV Neut % (Auto) Lymph % (Auto) [place] % (Auto) Eos % (Auto) Baso % (Auto) Neut # (Auto) Lymph # (Auto) [place] # (Auto) Eos # (Auto) Baso # (Auto) Immature Gran % Nucleated RBC % Immature Gran # Nucleated RBCs # Sodium Potassium Chloride Carbon Dioxide Anion Gap BUN Creatinine GFR Calculation BUN/Creatinine Ratio Glucose POC Glucose 80 139 H 173 H Calculated Osmolality Calcium Phosphorus Albumin 12/19/16 12/19/16 12/19/16 05:11 05:11 07:06 WBC 6.8 RBC 3.61 L Hgb 9.0 L Hct 28.4 L MCV 78.7 L MCH 25 L MCHC 31.7 L RDW 20.5 H Plt Count 228 D MPV 10.8 Neut % (Auto) 71.3 Lymph % (Auto) 14.0 L [place] % (Auto) 11.8 Eos % (Auto) 2.0 Baso % (Auto) 0.3 Neut # (Auto) 4.9 Lymph # (Auto) 1.0 L [place] # (Auto) 0.8 Eos # (Auto) 0.1 Baso # (Auto) 0.0 Immature Gran % 0.6 Nucleated RBC % 0.3 Immature Gran # 0.04 Nucleated RBCs # 0.02 Sodium 137 Potassium 4.6 Chloride 101 Carbon Dioxide 24 Anion Gap 16.6 H BUN 44 H Creatinine 4.60 H GFR Calculation 12 BUN/Creatinine Ratio 9.00 Glucose 110 H POC Glucose 107 H Calculated Osmolality 284.8 Calcium 7.4 L Phosphorus 5.0 H Albumin 2.2 L - EKG EKG results: interpreted by me, no acute changes ITejas John Timothy, MD, personally performed the services described in this documentation, ascribed by India Negrete RN in my presence, and it is both accurate and complete .
--- NOTE | 2016-12-19 12:45 | Hospitalist Progress Note ---
Assessment and Plan - Time spent with patient Time spent with patient: Greater than 30 minutes (1) Encephalopathy acute Status: Acute Assessment and plan: Mutifactorial, infectious and metabolic. Improving. Current Visit: Yes (2) Sepsis Status: Acute Assessment and plan: Resolved. Current Visit: Yes (3) Pneumonia Status: Acute Assessment and plan: Continue antibiotics. Current Visit: Yes (4) UTI (urinary tract infection) Status: Acute Assessment and plan: Continue ceftriaxone. Current Visit: Yes (5) Abdominal pain Status: Acute Assessment and plan: Resolved. Current Visit: Yes (6) HIRO (acute kidney injury) Status: Acute Assessment and plan: Currently receiving dialysis. Current Visit: Yes (7) Urinary retention Status: Acute Assessment and plan: Improving. Current Visit: Yes (8) Elevated liver enzymes Status: Acute Assessment and plan: This appears to have nearly resolved. Current Visit: Yes (9) Elevated troponin Status: Acute Assessment and plan: Likely secondary to sepsis and hypotension. Current Visit: Yes (10) H/O mitral valve replacement with mechanical valve Status: Chronic Assessment and plan: Continue anticoagulation. Current Visit: Yes (11) Congestive heart failure Status: Acute Assessment and plan: Improved. Current Visit: No (12) Positive blood cultures Status: Acute Assessment and plan: Continue Rocephin. Current Visit: Yes (13) Anemia Status: Acute Assessment and plan: Stable. Transfuse as needed. Current Visit: Yes Hospitalist: Subjective Interval history: No complaints or overnight events. She is doing better this morning. Exam - Constitutional Vitals: Period Temp Pulse Resp BP Sys/Eli Pulse Ox Last 24 Hr 96.3 F-98.0 F 75-86 16-20 123-154/65-79 94-97 General appearance: no acute distress - Head Head exam: Present: normocephalic, atraumatic - Eye Eye exam: Present: EOMI Pupils: Present: IRWIN - ENT ENT exam: Present: normal exam - Neck Neck exam: Present: normal inspection - Respiratory Respiratory exam: Present: clear to auscultation bilaterally. Absent: rhonchi, wheezes - Cardiovascular Cardiovascular exam: Present: regular rate and rhythm. Absent: gallop, rubs, systolic murmur - GI/Abdominal GI/Abdominal exam: Present: normal bowel sounds, soft. Absent: distended, firm , guarding, tenderness, rebound - Extremities Exam Extremities exam: Present: normal inspection. Absent: calf tenderness, edema Results - Labs CBC & BMP: 12/19/16 05:11 12/19/16 05:11 Lab Results: I have reviewed the past 24 hour labs
[2016-12-19] MEDS: cefTRIAXone 2,000 MG in SODIUM CHLORIDE 0.9% 100 ML IV SCH (13:09)
[2016-12-19] MEDS: PANTOPRAZOLE 40 MG VIAL IV SCH ×2 (13:09→20:07)
[2016-12-19] MEDS: WARFARIN 5 MG TABLET PO SCH (17:32)
[2016-12-20] MEDS: DEXTROSE IV SCH ×3 (04:08→20:28)
[2016-12-20] MEDS: MULTIVITAMIN IV SCH ×3 (04:08→20:28)
[2016-12-20] MEDS: THIAMINE IV SCH ×3 (04:08→20:28)
[2016-12-20 06:35] LABS: Basophils % 0.1 % (0.0-0.8); Eosinophils # 0.2 10*3/uL (0.0-0.87); Eosinophils % 1.8 % (0.00-10.9); Hematocrit 28.1 VOL% (35.7-47.0); Hemoglobin 8.6 GM/DL (12.0-16.0); Immature Granulocytes % 0.5 %; Immature Granulocytes Absolute 0.04 #; Lymphocytes # 1.1 10*3/uL (1.4-4.0); Lymphocytes % 13.6 % (21.3-54.2); Mean Corpuscular HGB Conc 30.6 GM/DL (32-36); Mean Corpuscular Hemoglobin 25 PG (27-34); Mean Corpuscular Volume 81.4 FL (87-102); Mean Platelet Volume 9.6 FL (9.6-12.0); Monocytes # 1.2 10*3/uL (0.11-0.8); Monocytes % 14.1 % (1.7-12.7); Neutrophils # 5.7 10*3/uL (1.4-7.4); Neutrophils % 69.9 % (38.7-73.9); Platelet Count 207 T/CUMM (130-400); Red Blood Count 3.45 MC/CUMM (3.8-5.5); Red Cell Distribution Width 20.8 % (9.3-17.3); White Blood Count 8.2 T/CUMM (4-12)
[2016-12-20 06:51] LABS: INR 1.5; PT Patient Result 16.1 SECS
[2016-12-20 07:13] LABS: Albumin 2.2 G/DL (3.4-5.0); Calcium 7.7 MG/DL (8.5-10.1); Osmolality,Calculated 274.1 MOS/KG (273-304); Phosphorous 4.5 MG/DL (2.5-4.9); Potassium 4.3 MMOL/L (3.5-5.1)
[2016-12-20] MEDS ORDERED: WARFARIN 10 MG TABLET PO ONE (08:11)
--- NOTE | 2016-12-20 08:54 | Cardiology Progress Note ---
Assessment and Plan (1) Chronic anticoagulation Status: Acute Assessment and plan: Chronically anticoagulated with Coumadin for her mechanical mitral valve. Her INR has dropped 1.5 today we will give an extra dose as well as increase her daily dosing. We will continue to monitor this along with her H&H. Current Visit: No (2) H/O mitral valve replacement with mechanical valve Status: Chronic Assessment and plan: Appears to be stable. We have noted above her INR is an H&H today. She requires warfarin for this. Current Visit: Yes (3) HIRO (acute kidney injury) Status: Acute Assessment and plan: She has been initiated on hemodialysis. Nephrology is managing. Current Visit: Yes (4) Hypertension Status: Chronic Assessment and plan: Blood pressures are stable. Current Visit: No (5) Anemia Status: Acute Assessment and plan: H&H is stable today. 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 Plavix, Brilinta with aspirin). Gastroenterology has evaluated this admission. This increase her risk of bleeding issues but we will continue to treat with warfarin because of her high risk of stroke from her mitral valve prosthesis. Current Visit: Yes Cardiology - PN: Subj Interval history: Patient clinically stable. She has no specific complaints today. She states her appetite is a little better. She denies any shortness of breath palpitations or chest pain. Her INR is 1.5 decreased from 1.7 yesterday. We will increase her warfarin and give her extra dose. Her H&H is stable at this time. We will need to continue to monitor H&H. Exam (Progress Note) - Constitutional Vitals: Period Temp Pulse Resp BP Sys/Eli Pulse Ox Last 24 Hr 96.4 F-97.2 F 78-102 15-19 121-150/50-78 98-100 Exam: General: No acute distress. Morbidly obese. Drowsy but arousable and responsive. HEENT: Normocephalic, sclera are clear there are no lid xanthelasmas noted. Oral mucosa is free of cyanosis or pallor. Neck: The neck is supple without JVD. Carotid upstrokes are normal volume and amplitude. There is no audible bruit. There is no palpable thyroid. Trachea is midline. Right IJ dialysis catheter intact. Lungs: Coarse lung sounds bilaterally without rales, rhonchi, or wheezes noted. Cardiovascular: The PMI is nondisplaced. No palpable thrill S3 or S4. There is a regular rate and rhythm with no murmur, rub, or gallop noted. Dorsalis pedis posterior tibial and femoral pulses are 2+ and equal bilaterally. Mechanical valve clicks are noted. Abdomen: Abdomen is soft with normal active bowel sounds. Obese. Nontender. Extremities exam: No edema. Skin: Warm and moist. Neuro/psych: Patient is not anxious. Awake alert, no focal deficits. Musculoskeletal: There is no kyphosis or scoliosis noted. Result/EKG - Labs CBC & BMP: 12/20/16 06:17 12/20/16 06:17 Labs: Laboratory Results - last 24 hr 12/19/16 12/19/16 12/19/16 11:05 11:37 17:31 WBC RBC Hgb Hct MCV MCH MCHC RDW Plt Count MPV Neut % (Auto) Lymph % (Auto) [place] % (Auto) Eos % (Auto) Baso % (Auto) Neut # (Auto) Lymph # (Auto) [place] # (Auto) Eos # (Auto) Baso # (Auto) Immature Gran % Nucleated RBC % Immature Gran # Nucleated RBCs # INR 1.7 PT Patient/Control Mix 18.1 Sodium Potassium Chloride Carbon Dioxide Anion Gap BUN Creatinine GFR Calculation BUN/Creatinine Ratio Glucose POC Glucose 134 H 174 H Calculated Osmolality Calcium Phosphorus Albumin 12/19/16 12/20/16 12/20/16 21:23 06:17 06:17 WBC 8.2 RBC 3.45 L Hgb 8.6 L Hct 28.1 L MCV 81.4 L MCH 25 L MCHC 30.6 L RDW 20.8 H Plt Count 207 MPV 9.6 Neut % (Auto) 69.9 Lymph % (Auto) 13.6 L [place] % (Auto) 14.1 H Eos % (Auto) 1.8 Baso % (Auto) 0.1 Neut # (Auto) 5.7 Lymph # (Auto) 1.1 L [place] # (Auto) 1.2 H Eos # (Auto) 0.2 Baso # (Auto) 0.0 Immature Gran % 0.5 Nucleated RBC % 0.0 Immature Gran # 0.04 Nucleated RBCs # 0.00 INR 1.5 PT Patient/Control Mix 16.1 Sodium Potassium Chloride Carbon Dioxide Anion Gap BUN Creatinine GFR Calculation BUN/Creatinine Ratio Glucose POC Glucose 157 H Calculated Osmolality Calcium Phosphorus Albumin 12/20/16 12/20/16 06:17 07:24 WBC RBC Hgb Hct MCV MCH MCHC RDW Plt Count MPV Neut % (Auto) Lymph % (Auto) [place] % (Auto) Eos % (Auto) Baso % (Auto) Neut # (Auto) Lymph # (Auto) [place] # (Auto) Eos # (Auto) Baso # (Auto) Immature Gran % Nucleated RBC % Immature Gran # Nucleated RBCs # INR PT Patient/Control Mix Sodium 135 L Potassium 4.3 Chloride 100 Carbon Dioxide 30 Anion Gap 9.3 BUN 27 H Creatinine 3.90 H GFR Calculation 14 BUN/Creatinine Ratio 6.00 Glucose 92 POC Glucose 109 H Calculated Osmolality 274.1 Calcium 7.7 L Phosphorus 4.5 Albumin 2.2 L
--- NOTE | 2016-12-20 08:58 | Nephrology Progress Note ---
Nephrology - PN: Subj Interval history: Patient is resting comfortable had questions about dialysis and the cause of her renal failure. Updated the patient and gave her reassurance that we will make preparations for long-term dialysis. Afebrile the rest of her vitals have been stable. Exam (PN)-Nephrology - Vital Signs Vital signs: Period Temp Pulse Resp BP Sys/Eli Pulse Ox Last 24 Hr 96.4 F-97.2 F 78-102 15-19 121-150/50-78 98-100 - General Appearance General appearance: well-developed, well-nourished EENT: ATNC Neck: supple Respiratory: clear Cardiology: regular rate, regular rhythm Gastrointestinal: normoactive bowel sounds, no tenderness, no guarding Neurologic: alert and oriented x3 Musculoskeletal: no clubbing - Lab 12/20/16 06:17 12/20/16 06:17 Most recent lab results Calcium 7.7 MG/DL (8.5-10.1) L 12/20/16 06:17 Phosphorus 4.5 MG/DL (2.5-4.9) 12/20/16 06:17
[2016-12-20] MEDS: INSULIN LISPRO 100 UNIT/ML SUBCUT SCH ×4 (09:38→21:35)
[2016-12-20] MEDS: ASPIRIN EC 81 MG TABLET PO SCH (10:34)
[2016-12-20] MEDS: amLODIPine 5 MG TABLET PO SCH (10:34)
[2016-12-20] MEDS: ISOSORBIDE MONONITRATE 60 MG TABLET PO SCH ×2 (10:34→20:29)
[2016-12-20] MEDS: AMITRIPTYLINE 25 MG TABLET PO SCH (10:39)
[2016-12-20] MEDS: PANTOPRAZOLE 40 MG VIAL IV SCH ×2 (10:43→20:29)
[2016-12-20] MEDS: cefTRIAXone 2,000 MG in SODIUM CHLORIDE 0.9% 100 ML IV SCH (11:09)
--- NOTE | 2016-12-20 12:40 | Hospitalist Progress Note ---
Assessment and Plan - Time spent with patient Time spent with patient: Greater than 30 minutes (1) Encephalopathy acute Status: Acute Assessment and plan: Mutifactorial, infectious and metabolic. Improving. Current Visit: Yes (2) Sepsis Status: Acute Assessment and plan: Resolved. Current Visit: Yes (3) Pneumonia Status: Acute Assessment and plan: Continue antibiotics. Current Visit: Yes (4) UTI (urinary tract infection) Status: Acute Assessment and plan: Continue ceftriaxone. Current Visit: Yes (5) HIRO (acute kidney injury) Status: Acute Assessment and plan: Currently receiving dialysis. Current Visit: Yes (6) Urinary retention Status: Acute Assessment and plan: Improving. Current Visit: Yes (7) Elevated liver enzymes Status: Acute Assessment and plan: This appears to have nearly resolved. Current Visit: Yes (8) Elevated troponin Status: Acute Assessment and plan: Likely secondary to sepsis and hypotension. Current Visit: Yes (9) H/O mitral valve replacement with mechanical valve Status: Chronic Assessment and plan: Continue anticoagulation. Current Visit: Yes (10) Congestive heart failure Status: Acute Assessment and plan: Improved. Current Visit: No (11) Positive blood cultures Status: Acute Assessment and plan: Continue Rocephin. Repeat having negative thus far. Current Visit: Yes (12) Anemia Status: Acute Assessment and plan: Stable. Transfuse as needed. Current Visit: Yes Hospitalist: Subjective Interval history: No complaints overnight events. Patient is more lucid this morning. Exam - Constitutional Vitals: Period Temp Pulse Resp BP Sys/Eli Pulse Ox Last 24 Hr 96.4 F-98.7 F 78-101 15-19 121-150/50-78 97-100 General appearance: no acute distress - Head Head exam: Present: normocephalic, atraumatic - Eye Eye exam: Present: EOMI Pupils: Present: IRWIN - ENT ENT exam: Present: normal exam - Neck Neck exam: Present: normal inspection - Respiratory Respiratory exam: Present: clear to auscultation bilaterally. Absent: rhonchi, wheezes - Cardiovascular Cardiovascular exam: Present: regular rate and rhythm. Absent: gallop, rubs, systolic murmur - GI/Abdominal GI/Abdominal exam: Present: normal bowel sounds, soft. Absent: distended, firm , guarding, tenderness, rebound - Extremities Exam Extremities exam: Present: normal inspection. Absent: calf tenderness, edema Results - Labs CBC & BMP: 12/20/16 06:17 12/20/16 06:17 Lab Results: I have reviewed the past 24 hour labs
[2016-12-21 02:40] LABS: Hematocrit 25.7 VOL% (35.7-47.0); Hemoglobin 8.2 GM/DL (12.0-16.0)
[2016-12-21 03:09] LABS: Albumin 2.3 G/DL (3.4-5.0); Calcium 7.6 MG/DL (8.5-10.1); Phosphorous 2.6 MG/DL (2.5-4.9); Potassium 3.9 MMOL/L (3.5-5.1)
[2016-12-21 04:00] LABS: INR 1.7; PT Patient Result 18.6 SECS
[2016-12-21] MEDS: THIAMINE IV SCH ×3 (04:17→21:24)
[2016-12-21] MEDS: DEXTROSE IV SCH ×3 (04:17→21:24)
[2016-12-21] MEDS: MULTIVITAMIN IV SCH ×3 (04:17→21:24)
--- NOTE | 2016-12-21 07:41 | Cardiology Progress Note ---
Assessment and Plan (1) Chronic anticoagulation Status: Chronic Assessment and plan: Her H&H is down a little bit today. Her INR is up to 1.7. She is on low-dose aspirin. We will continue to follow this. Current Visit: No (2) H/O mitral valve replacement with mechanical valve Status: Chronic Assessment and plan: Appears to be stable. We have noted above her INR is an H&H today. She requires warfarin for this. Current Visit: Yes (3) HIRO (acute kidney injury) Status: Acute Assessment and plan: She has been initiated on hemodialysis. Nephrology is managing. Current Visit: Yes (4) Hypertension Status: Chronic Assessment and plan: Blood pressures are stable. Current Visit: No (5) Anemia Status: Acute Assessment and plan: H&H is is a little lower today. 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 Plavix, Brilinta with aspirin). Gastroenterology has evaluated this admission. This increase her risk of bleeding issues but we will continue to treat with warfarin because of her high risk of stroke from her mitral valve prosthesis. Her INR is up to 1.7 today. Her H&H is down a little bit from yesterday. Current Visit: Yes Cardiology - PN: Subj Interval history: Patient continues to generally doing fairly well. She has not had any bleeding issues. Her INR today is 1.7. She is on the low-dose aspirin. She has no specific complaints today. Her appetite is good. She is having good bowel movements. She states she has had no blood in her stool. Her H&H though is down a little bit today. She generally feels better subjectively. She is much more awake alert and cognitive. She is basically probably back to her baseline mental status. Exam (Progress Note) - Constitutional Vitals: Period Temp Pulse Resp BP Sys/Eli Pulse Ox Last 24 Hr 97.0 F-98.7 F 82-101 18-19 144-160/64-70 96-98 Exam: General: No acute distress. Morbidly obese. She is awake and alert this morning is spontaneous in her conversation. This is a marked improvement. HEENT: Normocephalic, sclera are clear there are no lid xanthelasmas noted. Oral mucosa is free of cyanosis or pallor. Neck: The neck is supple without JVD. Carotid upstrokes are normal volume and amplitude. There is no audible bruit. There is no palpable thyroid. Trachea is midline. Right IJ dialysis catheter intact. Lungs: Clear lung sounds bilaterally without rales, rhonchi, or wheezes noted. Cardiovascular: The PMI is nondisplaced. No palpable thrill S3 or S4. There is a regular rate and rhythm with no murmur, rub, or gallop noted. Dorsalis pedis posterior tibial and femoral pulses are 2+ and equal bilaterally. Mechanical valve clicks are noted. Abdomen: Abdomen is soft with normal active bowel sounds. Obese. Nontender. Extremities exam: No edema. Skin: Warm and moist. Neuro/psych: Patient is not anxious. Awake alert, no focal deficits. Her mental status is essentially almost to baseline if not at baseline. She is spontaneous in conversation. Musculoskeletal: There is no kyphosis or scoliosis noted. Result/EKG - Labs CBC & BMP: 12/21/16 02:24 12/21/16 02:24 Lab Results: I have reviewed the past 24 hour labs (Her H&H is down a little bit today.) Labs: Laboratory Results - last 24 hr 12/20/16 12/20/16 12/20/16 07:24 11:32 15:53 Hgb Hct INR PT Patient/Control Mix Sodium Potassium Chloride Carbon Dioxide Anion Gap BUN Creatinine GFR Calculation BUN/Creatinine Ratio Glucose POC Glucose 109 H 183 H 179 H Calculated Osmolality Calcium Phosphorus Albumin 12/20/16 12/21/16 12/21/16 21:08 02:24 02:24 Hgb 8.2 L Hct 25.7 L INR 1.7 PT Patient/Control Mix 18.6 Sodium Potassium Chloride Carbon Dioxide Anion Gap BUN Creatinine GFR Calculation BUN/Creatinine Ratio Glucose POC Glucose 196 H Calculated Osmolality Calcium Phosphorus Albumin 12/21/16 12/21/16 02:24 07:16 Hgb Hct INR PT Patient/Control Mix Sodium 136 Potassium 3.9 Chloride 103 Carbon Dioxide 26 Anion Gap 10.9 BUN 27 H Creatinine 3.90 H GFR Calculation 14 BUN/Creatinine Ratio 6.00 Glucose 77 POC Glucose 121 H Calculated Osmolality 275.0 Calcium 7.6 L Phosphorus 2.6 Albumin 2.3 L
--- NOTE | 2016-12-21 09:10 | Nephrology Progress Note ---
Nephrology - PN: Subj Interval history: Patient is resting no acute changes. Serum creatinine is noted to be 3.9. This appears to be the same from yesterday. Repeat BMP in a.m. Exam (PN)-Nephrology - Vital Signs Vital signs: Period Temp Pulse Resp BP Sys/Eli Pulse Ox Last 24 Hr 97.0 F-98.7 F 82-87 18-19 144-160/64-72 96-98 - General Appearance General appearance: well-developed, well-nourished EENT: ATNC Neck: supple Respiratory: clear Cardiology: no edema, regular rate, regular rhythm Gastrointestinal: normoactive bowel sounds, no guarding - Lab 12/21/16 02:24 12/21/16 02:24 Most recent lab results Calcium 7.6 MG/DL (8.5-10.1) L 12/21/16 02:24 Phosphorus 2.6 MG/DL (2.5-4.9) 12/21/16 02:24 Assessment and Plan (1) Diabetes Status: Chronic Current Visit: No Qualifiers: Diabetes mellitus type: type 2 Diabetes mellitus complication status: without complication Qualified Code(s): E11.9 - Type 2 diabetes mellitus without complications (2) Anxiety Status: Chronic Current Visit: No (3) Acute renal disease Status: Acute Assessment and plan: Watching for renal recovery BMP in a.m. Current Visit: No (4) PAD (peripheral artery disease) Status: Chronic Current Visit: No
[2016-12-21] MEDS: INSULIN LISPRO 100 UNIT/ML SUBCUT SCH ×4 (10:21→21:28)
--- NOTE | 2016-12-21 10:31 | Hospitalist Progress Note ---
Assessment and Plan - Time spent with patient Time spent with patient: Greater than 30 minutes (1) Encephalopathy acute Status: Acute Assessment and plan: Resolved. Current Visit: Yes (2) Sepsis Status: Acute Assessment and plan: Resolved. Current Visit: Yes (3) Pneumonia Status: Acute Assessment and plan: Continue antibiotics. Current Visit: Yes (4) UTI (urinary tract infection) Status: Acute Assessment and plan: Continue ceftriaxone. Current Visit: Yes (5) HIRO (acute kidney injury) Status: Acute Assessment and plan: Currently receiving dialysis. Current Visit: Yes (6) Urinary retention Status: Acute Assessment and plan: Resolved. Current Visit: Yes (7) Elevated liver enzymes Status: Acute Assessment and plan: This appears to have nearly resolved. Current Visit: Yes (8) Elevated troponin Status: Acute Assessment and plan: Likely secondary to sepsis and hypotension. Current Visit: Yes (9) H/O mitral valve replacement with mechanical valve Status: Chronic Assessment and plan: Continue anticoagulation. Current Visit: Yes (10) Congestive heart failure Status: Acute Assessment and plan: Improved. Current Visit: No (11) Positive blood cultures Status: Acute Assessment and plan: Continue Rocephin. Repeat having negative thus far. Current Visit: Yes (12) Anemia Status: Acute Assessment and plan: Stable. Transfuse as needed. Current Visit: Yes Hospitalist: Subjective Interval history: No complaints overnight events. Patient is far more lucid and back to baseline. Exam - Constitutional Vitals: Period Temp Pulse Resp BP Sys/Eli Pulse Ox Last 24 Hr 97.0 F-98.7 F 82-87 18-19 144-160/64-72 96-98 General appearance: no acute distress - Head Head exam: Present: normocephalic, atraumatic - Eye Eye exam: Present: EOMI Pupils: Present: IRWIN - ENT ENT exam: Present: normal exam - Neck Neck exam: Present: normal inspection - Respiratory Respiratory exam: Present: clear to auscultation bilaterally. Absent: rhonchi, wheezes - Cardiovascular Cardiovascular exam: Present: regular rate and rhythm. Absent: gallop, rubs, systolic murmur - GI/Abdominal GI/Abdominal exam: Present: normal bowel sounds, soft. Absent: distended, firm , guarding, tenderness, rebound - Extremities Exam Extremities exam: Present: normal inspection. Absent: calf tenderness, edema Results - Labs CBC & BMP: 12/21/16 02:24 12/21/16 02:24 Lab Results: I have reviewed the past 24 hour labs
[2016-12-21] MEDS: ASPIRIN EC 81 MG TABLET PO SCH (10:39)
[2016-12-21] MEDS: AMITRIPTYLINE 25 MG TABLET PO SCH (10:39)
[2016-12-21] MEDS: amLODIPine 5 MG TABLET PO SCH (10:40)
[2016-12-21] MEDS: ISOSORBIDE MONONITRATE 60 MG TABLET PO SCH ×2 (10:41→21:26)
[2016-12-21] MEDS: PANTOPRAZOLE 40 MG VIAL IV SCH ×2 (12:32→21:24)
[2016-12-21] MEDS: cefTRIAXone 2,000 MG in SODIUM CHLORIDE 0.9% 100 ML IV SCH (12:36)
[2016-12-21] MEDS: WARFARIN 7.5 MG TABLET PO SCH (18:02)
[2016-12-22] MEDS: THIAMINE IV SCH ×3 (05:33→20:52)
[2016-12-22] MEDS: MULTIVITAMIN IV SCH ×3 (05:33→20:52)
[2016-12-22] MEDS: DEXTROSE IV SCH ×3 (05:33→20:52)
[2016-12-22 05:45] LABS: Hematocrit 23.5 VOL% (35.7-47.0); Hemoglobin 7.6 GM/DL (12.0-16.0)
[2016-12-22 05:55] LABS: PT Patient Result 21.9 SECS
[2016-12-22 06:10] LABS: Calcium 7.7 MG/DL (8.5-10.1); Osmolality,Calculated 277.1 MOS/KG (273-304); Potassium 3.7 MMOL/L (3.5-5.1)
[2016-12-22] MEDS: PANTOPRAZOLE 40 MG VIAL IV SCH ×2 (08:52→20:56)
[2016-12-22] MEDS: INSULIN LISPRO 100 UNIT/ML SUBCUT SCH ×4 (08:55→20:51)
[2016-12-22] MEDS: amLODIPine 5 MG TABLET PO SCH (08:56)
[2016-12-22] MEDS: ASPIRIN EC 81 MG TABLET PO SCH (08:56)
[2016-12-22] MEDS: AMITRIPTYLINE 25 MG TABLET PO SCH (08:57)
[2016-12-22] MEDS: ISOSORBIDE MONONITRATE 60 MG TABLET PO SCH ×2 (08:57→20:51)
[2016-12-22] MEDS ORDERED: SODIUM CHLORIDE 0.9% 250 ML IV PRN (10:05)
--- NOTE | 2016-12-22 10:06 | Hospitalist Progress Note ---
Assessment and Plan - Time spent with patient Time spent with patient: Greater than 30 minutes (1) Encephalopathy acute Status: Acute Assessment and plan: Resolved. Current Visit: Yes (2) Sepsis Status: Acute Assessment and plan: Resolved. Current Visit: Yes (3) Pneumonia Status: Acute Assessment and plan: Continue antibiotics. Current Visit: Yes (4) UTI (urinary tract infection) Status: Acute Assessment and plan: Continue ceftriaxone. Current Visit: Yes (5) HIRO (acute kidney injury) Status: Acute Assessment and plan: Currently receiving dialysis. Current Visit: Yes (6) Urinary retention Status: Acute Assessment and plan: Resolved. Current Visit: Yes (7) Elevated liver enzymes Status: Acute Assessment and plan: This appears to have nearly resolved. Current Visit: Yes (8) Elevated troponin Status: Acute Assessment and plan: Likely secondary to sepsis and hypotension. Current Visit: Yes (9) H/O mitral valve replacement with mechanical valve Status: Chronic Assessment and plan: Continue anticoagulation. Current Visit: Yes (10) Congestive heart failure Status: Acute Assessment and plan: Improved. Current Visit: No (11) Positive blood cultures Status: Acute Assessment and plan: Continue Rocephin. Repeat having negative thus far. Current Visit: Yes (12) Anemia Status: Acute Assessment and plan: We will transfuse 2 units today. Current Visit: Yes Hospitalist: Subjective Interval history: No complaints overnight events. Exam - Constitutional Vitals: Period Temp Pulse Resp BP Sys/Eli Pulse Ox Last 24 Hr 97.2 F-97.8 F 62-106 14-20 124-165/42-80 93-99 General appearance: no acute distress - Head Head exam: Present: normocephalic, atraumatic - Eye Eye exam: Present: EOMI Pupils: Present: IRWIN - ENT ENT exam: Present: normal exam - Neck Neck exam: Present: normal inspection - Respiratory Respiratory exam: Present: clear to auscultation bilaterally. Absent: rhonchi, wheezes - Cardiovascular Cardiovascular exam: Present: regular rate and rhythm. Absent: gallop, rubs, systolic murmur - GI/Abdominal GI/Abdominal exam: Present: normal bowel sounds, soft. Absent: distended, firm , guarding, tenderness, rebound - Extremities Exam Extremities exam: Present: normal inspection. Absent: calf tenderness, edema Results - Labs CBC & BMP: 12/22/16 05:31 12/22/16 05:31 Lab Results: I have reviewed the past 24 hour labs
--- NOTE | 2016-12-22 10:52 | Event Note ---
Tunneled dialysis catheter requested. The procedure and risk were discussed in detail with the patient and her family including infection, bleeding, blood clots, pneumothorax, injury to great vessels, etc. she understands these risks and wishes to proceed
[2016-12-22] MEDS: cefTRIAXone 2,000 MG in SODIUM CHLORIDE 0.9% 100 ML IV SCH (11:36)
--- NOTE | 2016-12-22 11:50 | Cardiology Progress Note ---
I, India Negrete RN, am scribing for, and in the presence of, Jacek Chakraborty MD 11:49. Assessment and Plan - Time spent with patient Time spent with patient: Greater than 30 minutes (1) H/O mitral valve replacement with mechanical valve Status: Chronic Assessment and plan: Clinically this is stable. She is now anticoagulated with Coumadin and her INR is 2.0. Her cardiac status is well compensated. I am going to drop off of her case at this time. If I can be of further assistance please give us a call. Current Visit: Yes (2) Chronic anticoagulation Status: Chronic Assessment and plan: Chronically anticoagulated with Coumadin. Coumadin was restarted. Continue low -dose baby aspirin. INR this morning is 2.0. Current Visit: No (3) HIRO (acute kidney injury) Status: Acute Assessment and plan: She has been initiated on hemodialysis. Nephrology is managing. 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 Current Visit: Yes (4) Hypertension Status: Chronic Current Visit: No (5) Anemia Status: Acute Assessment and plan: H/H is decreased today to 7.6/23.5. Patient has required transfusion of 2 units PRBCs this admission. 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 Plavix, Brilinta with aspirin). Gastroenterology has evaluated this admission. Due to her history, risk for bleeding is increased but anticoagulant does need to be continued due to high risk for stroke with mechanical mitral valve replacement. Current Visit: Yes (7) Positive blood cultures Status: Acute Assessment and plan: Repeat blood cultures drawn on December 16 are normal. Current Visit: Yes (8) Sepsis Status: Acute Assessment and plan: Appears to be improving. Current Visit: Yes (9) UTI (urinary tract infection) Status: Acute Assessment and plan: Urine culture positive for E. coli. Managed by primary service. 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 Yañez is a 66-year-old white female risk factors significant for hypertension, diabetes, dyslipidemia, personal history of CAD, and current smoker. Past medical history includes mechanical mitral valve replacement, percutaneous coronary intervention,CABG 3, and hypothyroidism. Patient is chronically anticoagulated with Coumadin. Patient is currently admitted with bacteremia, urosepsis, and she has had acute renal failure with anemia this admission. Blood cultures and urine cultures both positive for E. coli, and she has received appropriate treatment. She has required total of 2 units PRBCs this admission also. Gastroenterology evaluated for positive occult blood in stools. No further workup necessary. Hemodialysis has been initiated since admission to the hospital. She also had some altered mental status, but this is much improved and she appears about her baseline at this time. Cardiology was asked to see for history of valve replacement and chronic anticoagulation. December UPDATE: Coumadin was restarted. INR 2.0 today. H&H 7.6/23.5. No overt signs of bleeding. Patient is awake and alert this morning, and she is much more alert and feeling dramatically better. Denies any cardiac symptoms such as chest pain or shortness of breath. Afebrile, systolic BP 140-165 mmHg. From a cardiac standpoint, she appears to be doing well. Exam (Progress Note) - Constitutional Vitals: Period Temp Pulse Resp BP Sys/Eli Pulse Ox Last 24 Hr 97.2 F-97.8 F 62-106 14-20 124-165/42-80 93-99 Exam: General: No acute distress. Morbidly obese. She is awake and alert this morning and spontaneous in her conversation. This is a marked improvement. HEENT: Normocephalic, sclera are clear there are no lid xanthelasmas noted. Oral mucosa is free of cyanosis or pallor. Neck: The neck is supple without JVD. Carotid upstrokes are normal volume and amplitude. There is no audible bruit. There is no palpable thyroid. Trachea is midline. Right IJ dialysis catheter intact. Lungs: Clear lung sounds bilaterally without rales, rhonchi, or wheezes noted. Cardiovascular: The PMI is nondisplaced. No palpable thrill S3 or S4. There is a regular rate and rhythm with no murmur, rub, or gallop noted. . Mechanical valve clicks are noted. Abdomen: Abdomen is soft with normal active bowel sounds. Obese. Nontender. Extremities exam: No edema. Skin: Warm and dry. Neuro/psych: Patient is not anxious or appear depressed. Awake alert, no focal deficits. Her mental status is essentially almost to baseline if not at baseline. Musculoskeletal: There is no kyphosis or scoliosis noted. Result/EKG - Labs CBC & BMP: 12/22/16 05:31 12/22/16 05:31 Lab Results: I have reviewed the past 24 hour labs Labs: Laboratory Results - last 24 hr 12/21/16 12/21/16 12/21/16 12:23 16:34 21:23 Hgb Hct INR PT Patient/Control Mix Sodium Potassium Chloride Carbon Dioxide Anion Gap BUN Creatinine GFR Calculation BUN/Creatinine Ratio Glucose POC Glucose 170 H 225 H 145 H Calculated Osmolality Calcium Blood Type Antibody Screen Crossmatch Blood Bank Comment 12/22/16 12/22/16 12/22/16 05:31 05:31 05:31 Hgb 7.6 L Hct 23.5 L INR 2.0 PT Patient/Control Mix 21.9 Sodium 135 L Potassium 3.7 Chloride 100 Carbon Dioxide 25 Anion Gap 13.7 BUN 25 H Creatinine 3.20 H GFR Calculation 18 BUN/Creatinine Ratio 7.00 Glucose 178 H POC Glucose Calculated Osmolality 277.1 Calcium 7.7 L Blood Type Antibody Screen Crossmatch Blood Bank Comment 12/22/16 12/22/16 12/22/16 05:31 07:08 10:05 Hgb Hct INR PT Patient/Control Mix Sodium Potassium Chloride Carbon Dioxide Anion Gap BUN Creatinine GFR Calculation BUN/Creatinine Ratio Glucose POC Glucose 210 H Calculated Osmolality Calcium Blood Type A POSITIVE Cancelled Antibody Screen Negative Cancelled Crossmatch See Detail Blood Bank Comment Cancelled - Diagnostic Findings Procedure: Chest x-ray: image reviewed by me, report reviewed by me - EKG EKG results: interpreted by me, no acute changes EKG shows: sinus rhythm IMylene Michael, MD, personally performed the services described in this documentation, ascribed by India Negrete RN in my presence, and it is both accurate and complete .
--- NOTE | 2016-12-22 14:01 | Nephrology Progress Note ---
Nephrology - PN: Subj Interval history: The patient is resting comfortably no acute changes. Renal function has continued to improve with a creatinine of 3.2. No indication for hemodialysis at this time. I like to take out to for a dialysis catheter. Patient had follow-up with me in 2 weeks with a BMP. Exam (PN)-Nephrology - Vital Signs Vital signs: Period Temp Pulse Resp BP Sys/Eli Pulse Ox Last 24 Hr 97.3 F-97.8 F 82-106 16-20 124-165/42-80 93-99 - General Appearance General appearance: well-developed, well-nourished EENT: ATNC Neck: supple Respiratory: clear Cardiology: regular rate, regular rhythm Gastrointestinal: normoactive bowel sounds, no tenderness, no guarding Neurologic: alert and oriented x3 Musculoskeletal: no deformities, no clubbing Psychiatric: mood/affect appropriate - Lab 12/22/16 05:31 12/22/16 05:31 Most recent lab results Calcium 7.7 MG/DL (8.5-10.1) L 12/22/16 05:31 Phosphorus 2.6 MG/DL (2.5-4.9) 12/21/16 02:24 Assessment and Plan (1) Diabetes Status: Chronic Current Visit: No Qualifiers: Diabetes mellitus type: type 2 Diabetes mellitus complication status: without complication Qualified Code(s): E11.9 - Type 2 diabetes mellitus without complications (2) Anxiety Status: Chronic Current Visit: No (3) Acute renal disease Status: Resolved Assessment and plan: Renal function recovering. No indication for hemodialysis. Will take out the dialysis catheter. Current Visit: No (4) PAD (peripheral artery disease) Status: Chronic Current Visit: No
--- NOTE | 2016-12-22 14:12 | Event Note ---
I was notified that a new tunneled catheter would not be needed as her renal function is expected to return. We have canceled this procedure. I will be happy to see her back if anything changes or if there are any questions.
[2016-12-22] MEDS: DESITIN 4OZ/NYSTATIN 15 GRAM MIXTURE PASTE TOP SCH ×2 (14:23→20:52)
[2016-12-22] MEDS: WARFARIN 7.5 MG TABLET PO SCH (17:43)
[2016-12-22 22:46] LABS: Hematocrit 31.2 VOL% (35.7-47.0); Hemoglobin 10.3 GM/DL (12.0-16.0)
[2016-12-23] MEDS: THIAMINE IV SCH ×3 (02:01→13:00)
[2016-12-23] MEDS: DEXTROSE IV SCH ×3 (02:01→13:00)
[2016-12-23] MEDS: MULTIVITAMIN IV SCH ×3 (02:01→13:00)
[2016-12-23 06:08] LABS: Hematocrit 32.3 VOL% (35.7-47.0); Hemoglobin 10.6 GM/DL (12.0-16.0)
[2016-12-23 06:20] LABS: INR 2.2
[2016-12-23 06:22] LABS: PT Patient Result 24.2 SECS
[2016-12-23] MEDS: ASPIRIN EC 81 MG TABLET PO SCH (08:04)
[2016-12-23] MEDS: AMITRIPTYLINE 25 MG TABLET PO SCH (08:04)
[2016-12-23] MEDS: ISOSORBIDE MONONITRATE 60 MG TABLET PO SCH (08:05)
[2016-12-23] MEDS: amLODIPine 5 MG TABLET PO SCH (08:05)
[2016-12-23] MEDS: PANTOPRAZOLE 40 MG VIAL IV SCH (08:06)
[2016-12-23] MEDS: INSULIN LISPRO 100 UNIT/ML SUBCUT SCH ×2 (08:08→11:22)
[2016-12-23] MEDS: DESITIN 4OZ/NYSTATIN 15 GRAM MIXTURE PASTE TOP SCH (09:32)
--- NOTE | 2016-12-23 10:21 | Discharge Summary ---
Hospital Course - Hospital Course Hospital Course: Severe sepsis secondary to a urinary tract infection: Ms. Yañez was admitted for altered mental status. White blood cell count on admission was 14.7. She had no fever on admission. Blood pressures were somewhat low at 100 systolics on admission. She was found to be septic secondary to a urinary tract infection however required no pressor support. She was initiated on broad -spectrum antibiotics. Blood cultures and urine culture grew E. coli. Patient was tailored to Rocephin on this therapy. Repeat blood cultures are negative. At discharge patient will continue for a total of 2 weeks from negative blood culture of treatment for her urinary tract infection with positive blood cultures. Infectious encephalopathy: Patient was encephalopathic on admission and this was deemed to be secondary to infectious process. This completely resolved by discharge. NSTEMI type II: Troponins were noted to be elevated at 1.37 and dropped to 1.2. This was secondary to sepsis. Cardiology was consulted and followed the patient during hospital stay. Acute kidney injury: Creatinine on admission was 6.6. Nephrology was consulted for assistance and it was determined her acute kidney injury was secondary to sepsis hypoperfusion. Patient recovered very well on treatment instituted and eventually was deemed by nephrology to no longer require dialysis with removal of her IJ. She will follow-up with nephrology at discharge. Anemia: Blood levels were followed serially and were noted to drop to 7.1 she received 2 units and levels again dropped to 7.6 where she received another 2 units. Patient had Hemoccult stool that was 3+ positive. She required 4 units of packed red blood cells while hospitalized. Her anticoagulation was held temporarily during this time the patient was seen by gastroenterology and cardiology. Once cleared by GI she was reinitiated on her anticoagulation for her prosthetic mitral valve. Hepatic shock: Liver enzymes on admission were elevated. These were serially followed and were noted to down trend. This was deemed secondary to her septic state and hypoperfusion. - Time spent with patient Time with patient DS: Greater than 30 minutes Diagnosis - Discharge Diagnosis (1) Encephalopathy acute Status: Acute (2) Sepsis Status: Acute (3) Pneumonia Status: Acute (4) UTI (urinary tract infection) Status: Acute (5) HIRO (acute kidney injury) Status: Acute (6) Urinary retention Status: Acute (7) Elevated liver enzymes Status: Acute (8) Elevated troponin Status: Acute (9) H/O mitral valve replacement with mechanical valve Status: Chronic (10) Congestive heart failure Status: Acute (11) Positive blood cultures Status: Acute (12) Anemia Status: Acute Discharge Plan - Discharge Data Disposition: Disch To Home/Self Care Condition at Discharge: Stable Discharge Diet: advance to your usual diet Activity: resume usual activities as tolerated - Discharge Medications New Cefuroxime Tab [Ceftin] 500 mg PO BID #14 tablet sitaGLIPtin [Januvia] 25 mg PO DAILY #30 tablet Continue Amitriptyline [Elavil] 25 mg PO DAILY Aspirin EC Tab 81 mg PO DAILY Pantoprazole Tab [Protonix Tab] 40 mg PO DAILY #90 tablet Isosorbide Mononitrate [Isosorbide Mononitrate ER] 60 mg PO BID Levothyroxine Sodium 75 mcg PO DAILY Warfarin Sodium 5 mg PO DAILY Ferrous Sulfate Tab [Feosol Original Tab] 325 mg PO TID Carvedilol [Coreg] 25 mg PO BID Simvastatin [Zocor] 40 mg PO DAILY Nitroglycerin Sl Tab [Nitrostat] 0.4 mg SL Q5M PRN PRN Reason: Chest Pain Discontinued metFORMIN [Glucophage] 1,000 mg PO BID W/MEALS amLODIPine [Norvasc] 5 mg PO DAILY Furosemide Tab [Lasix Tab] 40 mg PO DAILY Estradiol [Estradiol Tab] 0.5 mg PO DAILY Albuterol Sulfate [Proair Hfa] 2 puffs INH Q4H PRN PRN Reason: Allergy Symptoms Magnesium Chloride [Slow-Mag] 71.5 mg PO BID Potassium Chloride Cap/Tab [K Dur] 10 meq PO BID chlordiazePOXIDE HCl [Chlordiazepoxide HCl] 10 mg PO TID Hydralazine HCl 25 mg PO TID - Follow Up or Referral - Forms/Instructions Exam - Constitutional Vitals: Period Temp Pulse Resp BP Sys/Eli Pulse Ox Last 24 Hr 97.4 F-98.6 F 67-86 16-20 143-174/56-104 93-97 General appearance: normal weight, no acute distress - Head Head exam: Present: normal inspection, normocephalic, atraumatic - Eye Eye exam: Present: EOMI Pupils: Present: IRWIN - ENT ENT exam: Present: normal exam - Neck Neck exam: Present: normal inspection - Respiratory Respiratory exam: Present: clear to auscultation bilaterally. Absent: accessory muscle use, prolonged expiratory phase, wheezes - Cardiovascular Cardiovascular exam: Present: regular rate and rhythm. Absent: bradycardia, irregular rhythm, systolic murmur - GI/Abdominal GI/Abdominal exam: Present: normal bowel sounds. Absent: ascites, hypoactive bowel sounds, tenderness - Extremities Exam Extremities exam: Present: normal inspection Discharge Results Procedures and tests throughout hospitalization: Pending Orders 12/15/16 23:00 Occult Blood, Stool Routine 12/24/16 04:00 Prothrombin Time INR IN AM Labs on day of discharge: Labs from last 24 hours 12/23/16 12/23/16 12/23/16 07:05 04:24 04:24 Hgb 10.6 L Hct 32.3 L INR 2.2 PT Patient/Control Mix 24.2 POC Glucose 371 H Blood Type Antibody Screen Crossmatch Blood Bank Comment 12/22/16 12/22/16 12/22/16 22:20 19:47 16:10 Hgb 10.3 L D Hct 31.2 L INR PT Patient/Control Mix POC Glucose 173 H 123 H Blood Type Antibody Screen Crossmatch Blood Bank Comment 12/22/16 12/22/16 11:18 10:05 Hgb Hct INR PT Patient/Control Mix POC Glucose 120 H Blood Type Cancelled Antibody Screen Cancelled Crossmatch See Detail Blood Bank Comment Cancelled DS: Provider Date of admission: 12/13/16 14:17 Primary care physician: . No PCP Attending physician on admission: Racquel Villasenor MD Consults: 12/13/16 16:15 Consult to Physician [CONS] Routine Comment: HIRO Consulting Provider: Consult to Specialist Group: Nephrology When should Consulting Provider be notified: In am [place] [facility] [place] Date Notified: 12/14/16 Time Notified: 08:13 Consult Notification Comment: The answering service took my name and number and will inform the doctor about the consult. 12/13/16 16:45 Consult to Pastoral Services [CONS] Routine Comment: pt request upon admission Pastoral Screen: Request Manager Technical Support Visit Pastoral Screen Source of Request: Patient 12/14/16 08:19 Consult to Physician [CONS] Routine Comment: elevated troponins Consulting Provider: Consult to Specialist Group: Cardiology When should Consulting Provider be notified: Now Person Notified: MD Edmond Date Notified: 12/14/16 Time Notified: 08:46 Consult Notification Comment: MD informed of consult and elevated troponin levels of 1.430; MD states will speak with MD Gant and one of them will see the patient today but to call back if any changes occur or if no one has seen the patient 12/14/16 12:30 Consult to Physician [CONS] Routine Comment: unable to void on own Consulting Provider: Consult to Specialist Group: Urology When should Consulting Provider be notified: Now Person Notified: Dr. Mahoney Date Notified: 12/14/16 Time Notified: 13:10 Consult Notification Comment: Dr. Mahoney said he would be up to see the patient in a little bit. 12/16/16 08:52 Consult to Physician [CONS] Routine Comment: Consulting Provider: 12/16/16 09:30 Consult to Physician [CONS] Routine Comment: DILAYSIS CATH PLACEMENT Consulting Provider: Eligio Dennis Consulting Provider Notified: Yes When should Consulting Provider be notified: Now Person Notified: Sherrie castañeda Date Notified: 12/16/16 Time Notified: 09:51 12/20/16 10:52 Consult to Case Mgmt/Social Srvs [CONS] Routine Reason for Case Mgmt/Social Srvs: Home Health Consult Comment: Set home health through [facility] at [facility]C Consult to Physical Therapy [CONS] Routine Reason for Physical Therapy: Evaluate and Treat Discharging clinician: Racquel Villasenor MD Expected date of discharge: 12/23/16
[2016-12-23] MEDS: cefTRIAXone 2,000 MG in SODIUM CHLORIDE 0.9% 100 ML IV SCH (11:23)
[2016-12-23 11:27] VITALS: BP 155/74
--- NOTE | 2016-12-23 15:10 | Event Note ---
Hemodialysis catheter removal The potential risks including area was reviewed with the patient. She agreed to proceed. The patient was placed in supine position and Trendelenburg and was comfortable. The dressing was removed and the area was prepped with ChloraPrep. Sutures removed. Patient instructed in home and then Valsalva at which time the uncuffed hemodialysis catheter was minimally removed. The catheter was inspected and there was no evidence of fracture. Pressure was applied for approximately 4 minutes at which time hemostasis was obtained. A clean dressing was applied. The patient was labeled and remains in a supine position instructed to remain flat for 30 minutes. The nurse was at bedside also received these instructions. Family is at the bedside and they are strictly dressing in place for 24 hours at which time it may be removed and the patient may shower normally. No complications to note.
== END 2016-12-23 15:40 | disposition home or self-care (01) | DRG 871 ==
LOC: EDUNIT# → EDBD → N.ED 11:32 → N.3E 14:17
PROVIDERS: ADMIT Internal Medicine; ATTEND Internal Medicine

== ENCOUNTER 2017-02-02 11:25 | Inpatient (IN) ==
[2017-02-02] MEDS ORDERED: cefTRIAXone 1,000 MG in SODIUM CHLORIDE 0.9% 100 ML IV STA (11:46)
[2017-02-02] MEDS ORDERED: FUROSEMIDE 100 MG/10 ML VIAL IV STA (11:46)
[2017-02-02] MEDS ORDERED: ALBUTEROL/IPRATROPIUM 3 ML NEB RESP TX STA (11:46)
[2017-02-02] MEDS ORDERED: methylPREDNISolone SOD SUC 125 MG/2 ML VIAL IV STA (11:46)
--- NOTE | 2017-02-02 11:52 | Emergency Department Note ---
Arrival - Arrival Chief Complaint: Shortness of Breath ED Nursing Triage Note: Brought in by EMS c/o SOB with exertion and BLE edema- onset one week ago. Denies CP. Mode of Arrival: Stretcher Limitations: No Limitations Source: Patient Time Seen by Provider: 02/02/17 11:46 - History of Present Illness HPI Narrative: This 66-year-old black female presents with one-week of insidious onset of dyspnea on exertion and at rest associated with nighttime wheeze, orthopnea, and pedal edema. The patient has both a history of asthma as well as congestive heart failure with a background of ischemic disease with history of bypass. Patient denies any chest pain in association with this nor any chills, fever, purulence, cough, nausea, vomiting, or diaphoresis. Currently she appears in no acute medical distress. Onset (ago): week(s) (Patient presents 1 week since onset of symptoms) Date of Last Menstrual Period: hysterectomy Allergies/Adverse Reactions: Allergies Allergy/AdvReac Type Severity Reaction Status Date / Time No Known Allergies Allergy Verified 12/13/16 11:50 Home Medications: Home Medications Medication Instructions Recorded Confirmed Type Aspirin EC Tab 81 mg PO DAILY 08/15/15 02/02/17 History Pantoprazole Tab [Protonix Tab] 40 mg PO DAILY #90 tablet 02/17/16 02/02/17 Rx Carvedilol [Coreg] 25 mg PO BID 12/13/16 02/02/17 History Ferrous Sulfate Tab [Feosol 325 mg PO QOTHER DAY 12/13/16 02/02/17 History Original Tab] Isosorbide Mononitrate [Isosorbide 60 mg PO DAILY 12/13/16 02/02/17 History Mononitrate ER] Simvastatin [Zocor] 40 mg PO DAILY 12/13/16 02/02/17 History Warfarin Sodium 5 mg PO DAILY 12/13/16 02/02/17 History sitaGLIPtin [Januvia] 25 mg PO DAILY #30 tablet 12/23/16 02/02/17 Rx Albuterol Sulfate [Proair HFA] 2 puff INH Q4H PRN 02/02/17 02/02/17 History Amitriptyline [Elavil] 25 mg PO DAILY 02/02/17 02/02/17 History Estradiol [Estradiol Tab] 0.5 mg PO DAILY 02/02/17 02/02/17 History Potassium Chloride 10 meq PO BID 02/02/17 02/02/17 History chlordiazePOXIDE [Librium] 10 mg PO DAILY 02/02/17 02/02/17 History hydrALAZINE TAB [Apresoline Tab] 25 mg PO TID 02/02/17 02/02/17 History Review of System - Review of System 12 point system: reviewed and no additional remarkable complaints except as stated - Review of System Constitutional: Present: as per HPI Respiratory: Present: as per HPI Cardiovascular: Present: as per HPI Medical,Surgical,& Family Hx - Medical History Cardio: History of: CAD, Hypertension, MS, Valvular Heart Disease (S/p mechanical valve replacement), Cardiovascular Problems No history of: Aneurysm, Cardiac Dysrhythmia, Cerebrovascular Disease, Congenital Heart Disease, CHF, Pacemaker, PVD Psychological: History of: Depression No history of: Anxiety Disorders, ADHD, Behavior Problems, Bipolar Disorder, Previous Suicide Attempt, Psychiatric/Substance Abuse Tx, Schizophrenia, Violent Behavior, Psychiatric Problems Neurology: History of: TIA No history of: Brain Aneurysm, Cerebral Hemorrhage, Cerebrovascular Accident , Cerebral Palsy, Dementia, Migraine, Multiple Sclerosis, Parkinson's Disease, Peripheral Neuropathy, Seizures, Vertigo, Neurologocal Cancer HEENT: History of: Eye Problem (NEAR SIGHTED FAR SIGHTED) No history of: Ear Problem, Dental Problems, Glaucoma, Oral Cancer, HEENT Problems Endocrine: History of: Diabetes Mellitus (NIDDM), Dyslipidemia, Thyroid Disorder No history of: Adrenal Disease, Diabetes Mellitus (IDDM), Endocrine Cancer, Endocrine Problems Rheumatology: No history of;: Fibromyalgia, Gout, Myasthenia Gravis, Psoriasis, Rheumatoid Arthritis, Sjogrens, Systemic Lupus Erythematosus, Rheumatological Problems Respiratory: No history of: Asthma, Bronchitis, COPD, Intubation, Obstructive Sleep Apnea (STATES THAT SHE WAS TESTED AT [facility] AND DOESNT HAVE DALLIN), Pulmonary Embolism, Pulmonary Hypertension, Pneumonia, Lung Cancer, Respiratory Problems Renal: History of: Renal Failure, Renal Problems (CKI) No history of: Renal (Kidney) Cancer, Dialysis Genitourinary: History of: Kidney Stones No history of: Bladder Problem, Recurring Urinary Tract Infections, Genitourinary Cancer, Problems Gastrointestinal: History of: Diverticulitis/ Diverticulosis (left-sided diverticulosis), GERD, Gastrointestinal Bleed (multiple small bowel AVMs, or mild gastritis), Polyps (sigmoid hyperplastic polyps), GI Problems No history of: Bowel Obstruction, Clostridium Difficile, Crohn's Disease, Esophageal Varices, Hemorrhoids, Hematochezia, Hepatitis, Liver Problems, Pancreatitis, Ulcerative Colitis, Gastrointestinal Cancer Musculoskeletal: No history of: Amputation, Back/Neck Problems, Degenerative Disk Disease, Herniated Disk, Osteoporosis, Musculoskeletal Cancer, Musculoskeletal Problems Hematology: History of: Anemia No history of: Blood Transfusion Reaction, Bleeding Problems, Clotting Problems, Sickle Cell Disease, Hematologic Cancer, Blood Disorders Reproductive: No history of: Abnormal Pap Smear, Breast Cancer, Endometriosis, Ectopic , Ovarian Cysts, Complication, Sexually Transmitted Disorders , Reproductive Cancer, Reproductive Problems Other: No history of: Anesthesia Reactions, Anaphylaxis, Cancer, Eczema, HIV, Malignant Hyperthermia, MRSA, Vancomycin-Resistant Enterococci, Skin Problems, Miscellaneous Medical Problems - Surgical History Cardiac Surgeries: Sugical HX of: Cardiac Catheterization (with stents), Cardiac Surgery (triple bypass) Patient Denies: Femoral-Popliteal Bypass Graft, Carotid Endarterectomy, Internal Defibrillator, Vascular Access Devices Thoracic Surgeries: Patient denies;: Kidney (Renal Surgery), Lithotripsy, Nephrectomy, Organ Transplant, Lobectomy Neurologic Surgeries: Patient denies: Brain Aneurysm, Cerebral Hemorrhage, Neurologic Surgery HEENT Surgeries: Patient denies: Carotid Endarterectomy, Eye Surgery, Thyroid Surgery, Tonsilectomy & Adenoidectomy Abdominal Surgeries: Surgical HX of: Colonoscopy, EGD Patient denies: Abdominal Surgery, Appendectomy, Cholecystectomy, Gastric Bypass Surgery, Hernia Repair, Splenectomy Reproductive Surgeries: Surgical HX of;: Gynecologic Surgery, Hysterectomy Patient denies;: Breast Surgery, Section, Cystoscopy, Dilation and Curettage, Genitourinary Surgery, Tubal Ligation Orthopedic Surgeries: Patient denies;: Implanted Devices, Orthopedic Surgery, Spinal Surgery, Total Hip Replacement, Total Knee Replacement - Family History Family History: Reports;: Family Cancer (MOTHER CERVICAL), Family Stroke (FATHER ) Denies;: Family Anesthesia Reaction, Family Diabetes, Family Heart Disease, Family Hypertension, Family Psychiatric Problems - Social History Smoking Status: Current every day smoker Frequency of Alcohol Use: None Type of Drug Use: None Exam Physical Examination: GENERAL: Obese black female in no acute distress. HEENT: Normocephalic. No trauma. Moist mucous membranes. EOMI. PERRLA. ENT NML NECK: Supple. No adenopathy. CARDIAC: Regular. No murmurs. Heart rate 95 CHEST: Occasional expiratory anterior wheeze. No respiratory distress. O2 sat 94% ABDOMEN: Soft. Nontender. Active bowel sounds. EXTREMITIES: No trauma. Normal ROM. 1+ pedal edema. SKIN: No diaphoresis. No rash. NEURO: Alert. Neuro intact. No focal deficits. Vital Signs: Vital Signs Temperature 97.6 F 02/02/17 11:32 Pulse Rate 101 H 02/02/17 12:18 Respiratory Rate 20 02/02/17 12:18 Blood Pressure 151/90 02/02/17 12:18 O2 Sat by Pulse Oximetry 99 02/02/17 12:18 Course - Reevaluation(s) Reevaluation #1: Advised patient and family that she is in congestive failure and will need to be admitted for further evaluation and treatment. - Consultations Consultation #1: Discussed with the hospitalists service who will admit for further evaluation and treatment. Results - Labs CBC & BMP: 02/02/17 12:02 02/02/17 12:02 Labs: I have reviewed the laboratory and noted the low hematocrit and greatly elevated BnP - Impressions EKG: Sinus rhythm at 98 with normal LA interval but intraventricular conduction delay noted right axis deviation with inferolateral ST flattening with T-wave inversion consistent with ischemia. - Diagnostic Findings Procedure: Chest x-ray: image reviewed by me, report reviewed by me ( Cardiomegaly with pulmonary edema) Disposition Clinical Impression: Congestive heart failure Case discussed with: patient, patient's family, patient's physician Condition: Guarded Time of Disposition: 13:08
[2017-02-02] MEDS ORDERED: cefTRIAXone 1,000 MG VIAL ONE (12:15)
[2017-02-02] MEDS ORDERED: methylPREDNISolone SOD SUC 125 MG/2 ML VIAL ONE (12:15)
[2017-02-02] MEDS ORDERED: FUROSEMIDE 100 MG/10 ML VIAL ONE (12:15)
[2017-02-02 12:23] LABS: Basophils % 0.2 % (0.0-0.8); Eosinophils # 0.1 10*3/uL (0.0-0.87); Eosinophils % 1.3 % (0.00-10.9); Hematocrit 28.2 VOL% (35.7-47.0); Hemoglobin 8.8 GM/DL (12.0-16.0); Immature Granulocytes % 0.5 %; Immature Granulocytes Absolute 0.03 #; Lymphocytes # 0.9 10*3/uL (1.4-4.0); Lymphocytes % 16.5 % (21.3-54.2); Mean Corpuscular HGB Conc 31.2 GM/DL (32-36); Mean Corpuscular Hemoglobin 27 PG (27-34); Mean Corpuscular Volume 86.2 FL (87-102); Mean Platelet Volume 10.9 FL (9.6-12.0); Monocytes # 0.4 10*3/uL (0.11-0.8); Neutrophils # 4.1 10*3/uL (1.4-7.4); Neutrophils % 74.5 % (38.7-73.9); Platelet Count 227 T/CUMM (130-400); Red Blood Count 3.27 MC/CUMM (3.8-5.5); Red Cell Distribution Width 21.8 % (9.3-17.3); White Blood Count 5.5 T/CUMM (4-12)
[2017-02-02 12:27] LABS: Apearance,Urine CLEAR (Clear); Bilirubin,Urine Negative (Negative); Blood, Urine Negative (Negative); Glucose,Urine (UA) Negative (Negative); Ketones,Urine Negative (Negative); Mucus,Urine Occasional /LPF (Occasional); Nitrite,Urine Negative (Negative); Protein,Urine Negative; RBC,Urine 1 /HPF (0-4); Urine Color Colorless (Yellow); Urine Specific Gravity 1.003 (1.001-1.035); Urine Urobilinogen < 2.0 EU/DL (0.2-1.0); WBC,Urine 1 /HPF (0-6)
[2017-02-02 12:34] LABS: INR 1.9; PT Patient Result 20.5 SECS; Partial Thromboplastin Time 30.9 SECS (0-40)
--- NOTE | 2017-02-02 12:38 | XRay Report ---
XR chest 1V portable Indication: Shortness of breath Comparison: Chest x-ray 12/16/2016 Technique: Portable AP chest was performed. Findings: Mild cardiomegaly is demonstrated previous sternotomy is demonstrated. Right-sided hemodialysis catheter has been removed. Central vascular prominence as well as mid lower lung interstitial stranding is scattered airspace opacities is demonstrated. Bones and soft tissues are unremarkable. Impression: 1. Patent chest most suggestive of volume overload and/or congestive heart failure features of pulmonary edema most noticeable within the lung bases. 02/02/2017 12:34 PM PROCEDURE INTERPRETED AT [facility] DEPARTMENT OF RADIOLOGY Final Report Signed by: Dr. Edd Lai
[2017-02-02 13:03] LABS: Alanine Aminotransferase 34 U/L (13-56); Alkaline Phosphatase 100 U/L (45-117); Aspartate Amino Transferase 23 U/L (0-37); Blood Urea Nitrogen 20 MG/DL (7-18); Calcium 8.1 MG/DL (8.5-10.1); Glucose 175 MG/DL (74-106); Osmolality,Calculated 285.4 MOS/KG (273-304); Potassium 3.9 MMOL/L (3.5-5.1); Sodium 140 MMOL/L (136-145); Total Protein 6.8 G/DL (6.4-8.3); Troponin I Only < 0.015 NG/ML (0.00-0.045)
--- NOTE | 2017-02-02 13:16 | EKG Report ---
Stationary ECG Study [facility] ER Test Date: 02/02/2017 11:33:44 AM Pat Name: SHIN WEI Department: Room: Gender: F Automobile Locator: : 1950 Requested by: Ran Barragan Order Number: [id number] Reading MD: COLTON ORONA Intervals [place] Rate: 99 P: 47 ME: 173 QRS: 102 QRSD: 126 T: -79 QT: 390 QTc: 446 Interpretive Statements SINUS RHYTHM WITH OCCASIONAL VENTRICULAR PREMATURE COMPLEXES at 99 bpm RIGHT AXIS DEVIATION; CONSIDER ARM LEAD SWAP MODERATE INTRAVENTRICULAR CONDUCTION DELAY ME WP MODERATE T-WAVE ABNORMALITY, CONSIDER ISCHEMIA Electronically Signed On 02-03-17 08:09:25 CDT by COLTON ORONA [email or web address]
--- NOTE | 2017-02-02 14:54 | Hospitalist History & Physical ---
<Yfn Burt - Last Filed: 02/02/17 14:51> Assessment and Plan - Time spent with patient Time spent with patient: Greater than 30 minutes (1) Congestive heart failure Status: Acute Assessment and plan: BNP 2250. Chest x-ray showed evidence of congestive heart failure. Patient has been admitted to telemetry for further evaluation and treatment. Start on IV Lasix. Obtain echocardiogram. Current Visit: No (2) History of heart valve replacement with mechanical valve Status: Chronic Assessment and plan: Patient has a history of a triple bypass surgery in [address] Henrik Gant. She is chronically anticoagulated with warfarin 5 mg p.o. daily Current Visit: No (3) Diabetes Status: Chronic Assessment and plan: Continue home meds. Diabetic consistent diet. Hemoglobin A1c stat. Current Visit: No Qualifiers: Diabetes mellitus type: type 2 Diabetes mellitus complication status: without complication Qualified Code(s): E11.9 - Type 2 diabetes mellitus without complications (4) Hypertension Status: Chronic Assessment and plan: Continue home medications. Current Visit: No (5) HIRO (acute kidney injury) Status: Acute Assessment and plan: Gentle IV fluid hydration. Current Visit: No History of Present Illness Chief complaint: CHF exacerbation History of present illness: Ms. Yañez is a 66 year old female with a past medical history of hypertension, congestive heart failure, diabetes mellitus who presents to the ED today with complaints of worsening shortness of breath with onset yesterday. Patient reports that she has had worsening shortness of breath with associated lower extremity edema. She also she was supposed to see a new primary care doctor [facility] on today. She also notes that she was scheduled to see Dr. Magdaleno on tomorrow for follow-up with her creatinine levels. On exam, the patient complains of shortness of breath without any associated chest pain, headache or palpitations. She notes that she does not find it hard to ambulate. However her labs confirm that her BNP is greater than 2000. Chest x-ray suggests volume overload and/for congestive heart failure with features of pulmonary edema most noticeable within the lung bases. After discussion with Dr. Nguyen, the patient will be admitted to the telemetry unit for further evaluation and treatment. She is listed as a full code. Home meds have been reviewed and reconciled. Home Medications Medication Instructions Recorded Confirmed Type Aspirin EC Tab 81 mg PO DAILY 08/15/15 02/02/17 History Pantoprazole Tab [Protonix Tab] 40 mg PO DAILY #90 tablet 02/17/16 02/02/17 Rx Carvedilol [Coreg] 25 mg PO BID 12/13/16 02/02/17 History Ferrous Sulfate Tab [Feosol 325 mg PO QOTHER DAY 12/13/16 02/02/17 History Original Tab] Isosorbide Mononitrate [Isosorbide 60 mg PO DAILY 12/13/16 02/02/17 History Mononitrate ER] Simvastatin [Zocor] 40 mg PO DAILY 12/13/16 02/02/17 History Warfarin Sodium 5 mg PO DAILY 12/13/16 02/02/17 History sitaGLIPtin [Januvia] 25 mg PO DAILY #30 tablet 12/23/16 02/02/17 Rx Albuterol Sulfate [Proair HFA] 2 puff INH Q4H PRN 02/02/17 02/02/17 History Amitriptyline [Elavil] 25 mg PO DAILY 02/02/17 02/02/17 History Estradiol [Estradiol Tab] 0.5 mg PO DAILY 02/02/17 02/02/17 History Potassium Chloride 10 meq PO BID 02/02/17 02/02/17 History chlordiazePOXIDE [Librium] 10 mg PO DAILY 02/02/17 02/02/17 History hydrALAZINE TAB [Apresoline Tab] 25 mg PO TID 02/02/17 02/02/17 History Allergies Allergy/AdvReac Type Severity Reaction Status Date / Time No Known Allergies Allergy Verified 12/13/16 11:50 Medical,Surgical,& Family Hx - Medical History Cardio: History of: CAD, Hypertension, NC, Valvular Heart Disease (S/p mechanical valve replacement), Cardiovascular Problems No history of: Aneurysm, Cardiac Dysrhythmia, Cerebrovascular Disease, Congenital Heart Disease, CHF, Pacemaker, PVD Psychological: History of: Depression No history of: Anxiety Disorders, ADHD, Behavior Problems, Bipolar Disorder, Previous Suicide Attempt, Psychiatric/Substance Abuse Tx, Schizophrenia, Violent Behavior, Psychiatric Problems Neurology: History of: TIA No history of: Brain Aneurysm, Cerebral Hemorrhage, Cerebrovascular Accident , Cerebral Palsy, Dementia, Migraine, Multiple Sclerosis, Parkinson's Disease, Peripheral Neuropathy, Seizures, Vertigo, Neurologocal Cancer HEENT: History of: Eye Problem (NEAR SIGHTED FAR SIGHTED) No history of: Ear Problem, Dental Problems, Glaucoma, Oral Cancer, HEENT Problems Endocrine: History of: Diabetes Mellitus (NIDDM), Dyslipidemia, Thyroid Disorder No history of: Adrenal Disease, Diabetes Mellitus (IDDM), Endocrine Cancer, Endocrine Problems Rheumatology: No history of;: Fibromyalgia, Gout, Myasthenia Gravis, Psoriasis, Rheumatoid Arthritis, Sjogrens, Systemic Lupus Erythematosus, Rheumatological Problems Respiratory: No history of: Asthma, Bronchitis, COPD, Intubation, Obstructive Sleep Apnea (STATES THAT SHE WAS TESTED AT [facility] AND DOESNT HAVE DALLIN), Pulmonary Embolism, Pulmonary Hypertension, Pneumonia, Lung Cancer, Respiratory Problems Renal: History of: Renal Failure, Renal Problems (CKI) No history of: Renal (Kidney) Cancer, Dialysis Genitourinary: History of: Kidney Stones No history of: Bladder Problem, Recurring Urinary Tract Infections, Genitourinary Cancer, Problems Gastrointestinal: History of: Diverticulitis/ Diverticulosis (left-sided diverticulosis), GERD, Gastrointestinal Bleed (multiple small bowel AVMs, or mild gastritis), Polyps (sigmoid hyperplastic polyps), GI Problems No history of: Bowel Obstruction, Clostridium Difficile, Crohn's Disease, Esophageal Varices, Hemorrhoids, Hematochezia, Hepatitis, Liver Problems, Pancreatitis, Ulcerative Colitis, Gastrointestinal Cancer Musculoskeletal: No history of: Amputation, Back/Neck Problems, Degenerative Disk Disease, Herniated Disk, Osteoporosis, Musculoskeletal Cancer, Musculoskeletal Problems Hematology: History of: Anemia No history of: Blood Transfusion Reaction, Bleeding Problems, Clotting Problems, Sickle Cell Disease, Hematologic Cancer, Blood Disorders Reproductive: No history of: Abnormal Pap Smear, Breast Cancer, Endometriosis, Ectopic , Ovarian Cysts, Complication, Sexually Transmitted Disorders , Reproductive Cancer, Reproductive Problems Other: No history of: Anesthesia Reactions, Anaphylaxis, Cancer, Eczema, HIV, Malignant Hyperthermia, MRSA, Vancomycin-Resistant Enterococci, Skin Problems, Miscellaneous Medical Problems - Surgical History Cardiac Surgeries: Sugical HX of: Cardiac Catheterization (with stents), Cardiac Surgery (triple bypass) Patient Denies: Femoral-Popliteal Bypass Graft, Carotid Endarterectomy, Internal Defibrillator, Vascular Access Devices Thoracic Surgeries: Patient denies;: Kidney (Renal Surgery), Lithotripsy, Nephrectomy, Organ Transplant, Lobectomy Neurologic Surgeries: Patient denies: Brain Aneurysm, Cerebral Hemorrhage, Neurologic Surgery HEENT Surgeries: Patient denies: Carotid Endarterectomy, Eye Surgery, Thyroid Surgery, Tonsilectomy & Adenoidectomy Abdominal Surgeries: Surgical HX of: Colonoscopy, EGD Patient denies: Abdominal Surgery, Appendectomy, Cholecystectomy, Gastric Bypass Surgery, Hernia Repair, Splenectomy Reproductive Surgeries: Surgical HX of;: Gynecologic Surgery, Hysterectomy Patient denies;: Breast Surgery, Section, Cystoscopy, Dilation and Curettage, Genitourinary Surgery, Tubal Ligation Orthopedic Surgeries: Patient denies;: Implanted Devices, Orthopedic Surgery, Spinal Surgery, Total Hip Replacement, Total Knee Replacement - Family History Family History: Reports;: Family Cancer (MOTHER CERVICAL), Family Stroke (FATHER ) Denies;: Family Anesthesia Reaction, Family Diabetes, Family Heart Disease, Family Hypertension, Family Psychiatric Problems - Social History Smoking Status: Current every day smoker Have you smoked in the last 12 months: Yes Time spent discussing smoking cessation with patient: 3 to 10 minutes Frequency of Alcohol Use: None Type of Drug Use: None Marital Status: Single Lives With:: Alone Functional capacity: independent ambulation 12 point system: reviewed and no additional remarkable complaints except as stated Exam - Constitutional Vitals: Period Temp Pulse Resp BP Sys/Eli Pulse Ox Last 24 Hr 97.6 F-97.6 F 70-101 20-22 151-162/87-98 90-100 Exam: General appearance: Obese, no acute distress - Head Head exam: Present: normocephalic, atraumatic - Eye Eye exam: Present: EOMI. Absent: conjunctival injection, nystagmus Pupils: Present: IRWIN, normal accommodation - ENT ENT exam: Present: normal exam, normal external ear exam - Neck Neck exam: Present: normal inspection. Absent: lymphadenopathy, tenderness, thyromegaly - Respiratory Respiratory exam: Present: Decreased breath sounds bilaterally. Absent: Wheezes - Cardiovascular Cardiovascular exam: Present: regular rate and rhythm. Absent: carotid bruit, gallop, rubs - GI/Abdominal GI/Abdominal exam: Present: normal bowel sounds. Absent: ascites, distended, mass - Extremities Exam Extremities exam: Present: normal inspection, normal capillary refill, bilateral lower extremity edema - Back Exam Back exam: Absent: CVA tenderness (L), CVA tenderness (R) - Neurological Exam Neurological exam: Present: alert, oriented X3, CN II-XII intact, reflexes normal - Psychiatric Psychiatric exam: Present: normal affect, normal mood - Skin Skin exam: Present: normal color, warm, dry Results - Labs CBC & BMP: 02/02/17 12:02 02/02/17 12:02 Lab Results: I have reviewed the past 24 hour labs - Diagnostic Findings Procedure: Chest x-ray: image reviewed by me, report reviewed by me (CHF) <Shawna Nguyena Daxa - Last Filed: 02/02/17 15:40> Assessment and Plan (1) Acute combined systolic and diastolic CHF, NYHA class 3 Status: Acute Assessment and plan: lasix 40 mg IV every 12 hours. echo from 12/14/16 with ef 30% and pap of 46. Current Visit: No (2) History of heart valve replacement with mechanical valve Status: Chronic Assessment and plan: will need to do coumadin 7.5 mg tonight, then coumadin 5 mg po every night Current Visit: No (3) Diabetes Status: Chronic Current Visit: No Qualifiers: Diabetes mellitus type: type 2 Diabetes mellitus complication status: without complication Qualified Code(s): E11.9 - Type 2 diabetes mellitus without complications (4) GERD (gastroesophageal reflux disease) Status: Chronic Assessment and plan: protonix 40 mg po every day Current Visit: No (5) Acute renal disease Status: Resolved Assessment and plan: chronic will monitor while on lasix Current Visit: No (6) Hypertension Status: Chronic Current Visit: No (7) Dysarthria Status: Acute Assessment and plan: mri of brain Current Visit: Yes (8) Leg edema, left Status: Acute Assessment and plan: venous doppler, bilateral Current Visit: Yes History of Present Illness History of present illness: Ms. Yañez is a 66 year old female seen and examined. Patient has a mitral value and is subtherapeutic on coumadin with INR of 1.9. Complains of difficulty speaking and left sided weakness. Patient was taken off her lasix during last admission due to renal failure. - Constitutional Constitutional: Present: fatigue. Absent: fever(s) - EENT Eyes: Absent: blurry vision, diplopia Ears: Absent: decreased hearing, ear discharge Nose, mouth and throat: Absent: headache(s), sore throat - Cardiovascular Cardiovascular: Present: dyspnea, dyspnea on exertion, edema. Absent: chest pain at rest - Respiratory Respiratory: Present: dyspnea, dyspnea on exertion - Gastrointestinal Gastrointestinal: Absent: abdominal pain, nausea, vomiting - Genitourinary Genitourinary: Absent: difficulty urinating, dysuria - Neurological Neurological: Present: confusion, focal weakness. Absent: headache(s) - Psychiatric Psychiatric: Absent: anxiety, depression - Endocrine Endocrine: Present: fatigue, heat intolerance - Hematologic/Lymphatic Hematologic/Lymphatic: Absent: easy bleeding, easy bruising Exam - Constitutional Vitals: Period Temp Pulse Resp BP Sys/Eli Pulse Ox Last 24 Hr 97.6 F-97.6 F 70-101 20-22 151-162/87-98 90-100 Exam: agree with above except dysarthria Results - Labs CBC & BMP: 02/02/17 12:02 02/02/17 12:02
[2017-02-02] MEDS ORDERED: WARFARIN 7.5 MG TABLET PO ONE (15:35)
[2017-02-02] MEDS ORDERED: ACETAMINOPHEN 325 MG TABLET PO PRN (16:30)
[2017-02-02] MEDS ORDERED: DEXTROSE 50% 25 GM/50 ML SYRINGE IV PRN (16:30)
[2017-02-02] MEDS ORDERED: GLUCAGON 1 MG VIAL IM PRN (16:30)
[2017-02-02] MEDS ORDERED: MAGNESIUM SULF RIDER 4 GM in PREMIX 1 EACH IV PRN (16:30)
[2017-02-02] MEDS ORDERED: LACTULOSE 20 GM/30 ML UDCUP PO PRN (16:30)
[2017-02-02] MEDS ORDERED: ONDANSETRON 4 MG/2 ML VIAL IV PRN (16:30)
[2017-02-02] MEDS ORDERED: MAGNESIUM SULF RIDER 2 GM in PREMIX 1 EACH IV PRN (16:30)
[2017-02-02] MEDS: hydrALAZINE 25 MG TABLET PO SCH ×2 (17:23→20:56)
[2017-02-02 17:28] LABS: Magnesium 1.6 MG/DL (1.8-2.4); Thyroid Stimulating Hormone 7.34 uIU/ml (0.358-3.74)
--- NOTE | 2017-02-02 17:29 | Magnetic Resonance Report ---
History: Slurred speech and memory loss Date: 02/02/2017 Study: MRI brain without contrast Comparison exam: No previous The brain was imaged in 3 planes on the 1.5 Kierra magnet without IV contrast, to include diffusion, T2, FLAIR, gradient echo, and T1-weighted sequences. No IV contrast given. The exam was performed on the day of admission. The ventricles are midline in position without evidence of hydrocephalus. There is no Chiari I malformation. There is no gross pituitary mass. There is no evidence of acute ischemia on the diffusion sequence. There is a mild amount of patchy increased FLAIR and T2 signal in the periventricular white matter and xiomara without mass effect compatible with changes of small vessel disease. Areas of chronic ischemia are noted in the posterior right frontal region, left parietal area, and mid to inferior left cerebellar hemisphere. There is no mass effect or parenchymal hemorrhage. There is no extra-axial hematoma. There is a normal flow void in the [place] area. There is an occasional scattered chronic lacunar infarct in the right cerebellar hemisphere. Impression: Chronic ischemic changes. No acute intracranial process PROCEDURE INTERPRETED AT [facility] DEPARTMENT OF RADIOLOGY Final Report Signed by: Dr. Gabbi Pardo
[2017-02-02] MEDS: ASPIRIN CHEW 81 MG TABLET PO SCH (17:40)
[2017-02-02] MEDS: CARVEDILOL 25 MG TABLET PO SCH ×2 (17:40→20:56)
[2017-02-02] MEDS: DOCUSATE SODIUM 100 MG CAPSULE PO SCH ×2 (17:40→20:56)
[2017-02-02] MEDS: WARFARIN 5 MG TABLET PO SCH (17:41)
[2017-02-02] MEDS: AMITRIPTYLINE 25 MG TABLET PO SCH (17:41)
[2017-02-02] MEDS: chlordiazePOXIDE 10 MG CAPSULE PO SCH (17:41)
[2017-02-02] MEDS: LOSARTAN 25 MG TABLET PO SCH (17:41)
[2017-02-02] MEDS: ISOSORBIDE MONONITRATE 60 MG TABLET PO SCH (17:41)
[2017-02-02] MEDS: PANTOPRAZOLE 40 MG TABLET PO SCH (17:42)
--- NOTE | 2017-02-02 18:06 | Ultrasound Report ---
US venous doppler LE BI Indication: Lower extremity swelling and pain. Comparison: None. Technique: Using a transcutaneous probe, grayscale, spectral Doppler, and color Doppler images of the bilateral lower extremity venous structures were captured and stored. Grayscale images prior to and following compression were obtained. Interrogated venous structures include the bilateral common femoral vein, superficial femoral vein (proximal, mid, and distal), and popliteal vein. Findings: There is no evidence of thrombus within the interrogated venous structures. the interrogated venous segments demonstrate presence of both color flow and spectral flow. Impression: 1. No evidence of venous thrombosis. 02/02/2017 6:03 PM PROCEDURE INTERPRETED AT [facility] DEPARTMENT OF RADIOLOGY Final Report Signed by: Dr. Edd Lai
[2017-02-02] MEDS: FUROSEMIDE 40 MG/4 ML VIAL IV SCH (20:56)
[2017-02-02] MEDS: ZALEPLON 5 MG CAPSULE PO PRN (20:56)
[2017-02-03 01:27] LABS: Hematocrit 28.7 VOL% (35.7-47.0); Hemoglobin 8.8 GM/DL (12.0-16.0); Immature Granulocytes % 0.7 %; Immature Granulocytes Absolute 0.03 #; Lymphocytes # 0.6 10*3/uL (1.4-4.0); Mean Corpuscular HGB Conc 30.7 GM/DL (32-36); Mean Corpuscular Hemoglobin 26 PG (27-34); Mean Corpuscular Volume 85.7 FL (87-102); Mean Platelet Volume 11.8 FL (9.6-12.0); Monocytes # 0.1 10*3/uL (0.11-0.8); Monocytes % 1.8 % (1.7-12.7); Neutrophils # 3.7 10*3/uL (1.4-7.4); Neutrophils % 83.5 % (38.7-73.9); Platelet Count 225 T/CUMM (130-400); Red Blood Count 3.35 MC/CUMM (3.8-5.5); Red Cell Distribution Width 21.6 % (9.3-17.3); White Blood Count 4.4 T/CUMM (4-12)
[2017-02-03 01:47] LABS: Calcium 8.2 MG/DL (8.5-10.1); Osmolality,Calculated 293.4 MOS/KG (273-304); Risk Ratio 4.14; VLDL CHOLESTEROL 15.4 MG/DL
[2017-02-03] MEDS: hydrALAZINE 25 MG TABLET PO SCH ×3 (08:28→21:14)
[2017-02-03] MEDS: sitaGLIPtin 25 MG TABLET PO SCH (08:28)
[2017-02-03] MEDS: LOSARTAN 25 MG TABLET PO SCH (08:29)
[2017-02-03] MEDS: ASPIRIN CHEW 81 MG TABLET PO SCH (08:29)
[2017-02-03] MEDS: PANTOPRAZOLE 40 MG TABLET PO SCH (08:29)
[2017-02-03] MEDS: ISOSORBIDE MONONITRATE 60 MG TABLET PO SCH (08:29)
[2017-02-03] MEDS: DOCUSATE SODIUM 100 MG CAPSULE PO SCH ×2 (08:29→21:14)
[2017-02-03] MEDS: SIMVASTATIN 40 MG TABLET PO SCH (08:29)
[2017-02-03] MEDS: FUROSEMIDE 40 MG/4 ML VIAL IV SCH ×2 (08:30→16:54)
[2017-02-03] MEDS: CARVEDILOL 25 MG TABLET PO SCH ×2 (08:30→21:14)
[2017-02-03] MEDS: AMITRIPTYLINE 25 MG TABLET PO SCH (08:30)
[2017-02-03] MEDS: WARFARIN 5 MG TABLET PO SCH (08:34)
[2017-02-03] MEDS: chlordiazePOXIDE 10 MG CAPSULE PO SCH (11:11)
--- NOTE | 2017-02-03 14:54 | Hospitalist Progress Note ---
Assessment and Plan (1) Acute combined systolic and diastolic CHF, NYHA class 3 Status: Acute Assessment and plan: cont lasix 40 mg IV every 12 hours. echo from 12/14/16 with ef 30% and pap of 46. Current Visit: No (2) History of heart valve replacement with mechanical valve Status: Chronic Assessment and plan: inr daily, pharmacy to manage, need INR between 2.5 to 3.5 Current Visit: No (3) Diabetes Status: Chronic Assessment and plan: hgb A1c 7.4, cont januvia 50 mg, lantus 10 units sq every day Current Visit: No Qualifiers: Diabetes mellitus type: type 2 Diabetes mellitus complication status: without complication Qualified Code(s): E11.9 - Type 2 diabetes mellitus without complications (4) GERD (gastroesophageal reflux disease) Status: Chronic Assessment and plan: protonix 40 mg po every day Current Visit: No (5) Acute renal disease Status: Resolved Assessment and plan: cont to monitor Current Visit: No (6) Hypertension Status: Chronic Assessment and plan: increase cozaar 50 mg po bid Current Visit: No (7) Dysarthria Status: Acute Assessment and plan: 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 Lai today about patient she had a recent breast biopsy which turned out positive for breast cancer. Patient was very sedated today when I saw her at bedside. We have moved her Elavil to her receiving it at night instead of during the day. Patient did have her MRI yesterday. I would like to discuss results with family or with patient when she is more alert. Exam - Constitutional Vitals: Period Temp Pulse Resp BP Sys/Eli Pulse Ox Last 24 Hr 97 F-98.3 F 69-107 16-20 147-178/74-87 90-100 Exam: Heart Rate-[RRR] Lungs-[CTAB] GI-[+bs soft, NT] Ext-[1+ edema] Neuro [Motor 5/5], [alert and oriented times 2, confused lethargic ] psych [normal mood and affect] General [no acute distress] Results - Labs CBC & BMP: 02/03/17 01:02/03/17 01:03 Lab Results: I have reviewed the past 24 hour labs Labs: blood cx times 2, no growth - Diagnostic Findings Procedure: MRI: report reviewed by me, pending (Old right posterior frontal, left parietal and mid to inferior left cerebellar hemispheric strokes nothing acute), Ultrasound: report reviewed by me (no dvt )
[2017-02-03] MEDS ORDERED: MAGNESIUM SULF RIDER 2 GM in PREMIX 1 EACH IV ONE (15:04)
[2017-02-03 15:49] LABS: INR 2.7
[2017-02-03] MEDS: INSULIN LISPRO 100 UNIT/ML SUBCUT SCH ×2 (17:24→21:15)
[2017-02-03] MEDS ORDERED: WARFARIN 5 MG TABLET PO SCH (18:00)
[2017-02-03] MEDS: INSULIN GLARGINE 100 UNIT/ML SUBCUT SCH (18:16)
[2017-02-03] MEDS: WARFARIN 3 MG TABLET PO SCH (18:17)
--- NOTE | 2017-02-03 20:40 | ECHO Report ---
Virginia Yañez Exam Date: 02/03/2017 09:51 Referring Physician: Technologist: Venita Espitia Age: 66 Ht (in): 63 Wt (lb): 194 Gender: F Exam Location: [facility] Echo Indications: CHF, MVR, HTN, acute kidney failure, diabetes BP: 172 / 83 HR: 70 Rhythm: Sinus Technical Quality: Technically difficult study IMPRESSIONS Severely reduced LV systolic function with regional wall motion as described below, ejection fraction 20%. Mild to moderate concentric left ventricular hypertrophy. Mild right sided chamber dilation. Mechanical prosthetic valve in the mitral position appears to have satisfactory function. Mild to moderate tricuspid regurgitation, trace pulmonic regurgitation. Moderate pulmonary hypertension with pulmonary artery pressure estimated at 54 mmHg plus right atrial pressure. MEASUREMENTS (Male / Female) Normal Values 2D ECHO LV Diastolic Diameter PLAX 4.3 cm 4.2 - 5.9 / 3.9 - 5.3 cm LV Systolic Diameter PLAX 4.1 cm LV Fractional Shortening PLAX 4.0 % IVS Diastolic Thickness 1.5 cm 0.6 - 1.0 / 0.6 - 0.9 cm LVPW Diastolic Thickness 1.3 cm 0.6 - 1.0 / 0.6 - 0.9 cm Aortic Root Diameter 2.9 cm LA Systolic Diameter LX 3.4 cm 3.0 - 4.0 / 2.7 - 3.8 cm DOPPLER Mitral E to A Ratio 3.0 TR Peak Velocity 366.0 cm/s TR Peak Gradient 53.6 mmHg FINDINGS Left Ventricle Normal left ventricular cavity size. Mild concentric left ventricular hypertrophy with diastolic dysfunction. Left ventricular ejection fraction is estimated at 20 %. There is global hypokinesis, with severe hypokinesis if not akinesis of the inferior wall. Right Ventricle Mild - moderately increased right ventricular size. Right Atrium The right atrium is mildly enlarged. Left Atrium Normal left atrial size. Mitral Valve Mechanical prosthetic valve is noted in the mitral position. Normal gradient recorded across the prosthetic mitral valve. Mean gradient is 6 mmHg, maximum 23 mmHg, VTI 52 cm. Aortic Valve The aortic valve is trileaflet and has normal motion. Tricuspid Valve Morphologically normal tricuspid valve. [id number] tricuspid valve regurgitation. Tricuspid regurgitation velocities suggest a PAP of 53.6 mmHg + RAP. Pulmonic Valve Morphologically normal pulmonic valve. Trace pulmonary valve regurgitation. Pericardium No pericardial effusion. Aorta Normal size aortic root and proximal ascending aorta. Sherrie Armstrong MD (Electronically Signed) Final Date: 03 February 2017 20:38
[2017-02-03] MEDS: ZALEPLON 5 MG CAPSULE PO PRN (21:14)
[2017-02-03] MEDS: LOSARTAN 50 MG TABLET PO SCH (21:14)
[2017-02-04 05:20] LABS: Basophils % 0.4 % (0.0-0.8); Eosinophils # 0.1 10*3/uL (0.0-0.87); Eosinophils % 1.2 % (0.00-10.9); Hematocrit 28.2 VOL% (35.7-47.0); Hemoglobin 8.5 GM/DL (12.0-16.0); Immature Granulocytes % 0.4 %; Immature Granulocytes Absolute 0.02 #; Lymphocytes # 1.3 10*3/uL (1.4-4.0); Lymphocytes % 25.2 % (21.3-54.2); Mean Corpuscular HGB Conc 30.1 GM/DL (32-36); Mean Corpuscular Hemoglobin 26 PG (27-34); Mean Corpuscular Volume 87.3 FL (87-102); Mean Platelet Volume 11.5 FL (9.6-12.0); Monocytes # 0.6 10*3/uL (0.11-0.8); Monocytes % 10.7 % (1.7-12.7); Neutrophils # 3.2 10*3/uL (1.4-7.4); Neutrophils % 62.1 % (38.7-73.9); Platelet Count 238 T/CUMM (130-400); Red Blood Count 3.23 MC/CUMM (3.8-5.5); Red Cell Distribution Width 21.8 % (9.3-17.3); White Blood Count 5.2 T/CUMM (4-12)
[2017-02-04 05:21] LABS: INR 2.8
[2017-02-04 05:27] LABS: PT Patient Result 32.1 SECS
[2017-02-04 05:41] LABS: Calcium 7.8 MG/DL (8.5-10.1); Osmolality,Calculated 283.4 MOS/KG (273-304); Potassium 4.1 MMOL/L (3.5-5.1)
--- NOTE | 2017-02-04 07:12 | Physician Query Form ---
CLICK EDIT DOCUMENT TO SELECT QUERY ANSWER --> OK --> SIGN Steffanie Lai RN, CCDS Certified Clinical Pododermatologist W) [phone] (f) [phone] [email or web address] PROVIDERS: Make your selection(s) from the choices in EACH section by typing an "x" and enter comments in the comment section. Please use your independent medical judgment in providing your response. This request does not imply that any particular answer is desired or expected. CLINICAL INDICATORS: (Providers should not edit this section) The medical record indicates that the patient was admitted with CHF, creatinine of 1.80 on admission that has increased to 2.00, GFR of 37# that has decreased to 33# on the 2nd and the "Patient was taken off her lasix during last admission due to renal failure". Clarify which of the following most accurately represents the patient's renal status: Chronic Kidney Disease Stages Source: National Kidney Disease Foundation ( ) Stage I (eGFR > or = 90) ( ) Stage II (eGFR 60 - 89) ( x) Stage III (eGFR 30 - 59) ( ) Stage IV (eGFR 15 - 29) ( ) Stage V (eGFR < 15 or dialysis) ( ) Acute renal failure only ( ) Other, please specify: ( ) Clinically unable to determine COMMENTS: PLEASE ALSO DOCUMENT RESPONSE IN PROGRESS NOTES AND/OR DISCHARGE SUMMARY Use of terms such as suspected, likely, or probable (associated with a specific diagnosis that is being evaluated, monitored, or treated as if it exists) are acceptable and can be restated in the discharge summary if not ruled out. MTDD
[2017-02-04] MEDS: INSULIN LISPRO 100 UNIT/ML SUBCUT SCH ×4 (09:46→21:51)
[2017-02-04] MEDS: CARVEDILOL 25 MG TABLET PO SCH ×2 (09:47→21:50)
[2017-02-04] MEDS: LOSARTAN 50 MG TABLET PO SCH ×2 (09:47→21:50)
[2017-02-04] MEDS: DOCUSATE SODIUM 100 MG CAPSULE PO SCH ×2 (09:47→21:50)
[2017-02-04] MEDS: ASPIRIN CHEW 81 MG TABLET PO SCH (09:47)
[2017-02-04] MEDS: ISOSORBIDE MONONITRATE 60 MG TABLET PO SCH (09:48)
[2017-02-04] MEDS: INSULIN GLARGINE 100 UNIT/ML SUBCUT SCH (09:48)
[2017-02-04] MEDS: PANTOPRAZOLE 40 MG TABLET PO SCH (09:48)
[2017-02-04] MEDS: sitaGLIPtin 25 MG TABLET PO SCH (09:48)
[2017-02-04] MEDS: SIMVASTATIN 40 MG TABLET PO SCH (09:48)
[2017-02-04] MEDS: hydrALAZINE 25 MG TABLET PO SCH ×3 (09:54→21:50)
[2017-02-04] MEDS: FUROSEMIDE 40 MG/4 ML VIAL IV SCH (10:02)
--- NOTE | 2017-02-04 11:33 | Hospitalist Progress Note ---
Assessment and Plan (1) Acute combined systolic and diastolic CHF, NYHA class 3 Status: Acute Assessment and plan: change to po lasix, kidneys getting too dry Current Visit: No (2) History of heart valve replacement with mechanical valve Status: Chronic Assessment and plan: inr better today at 2.8 Current Visit: No (3) Diabetes Status: Chronic Assessment and plan: hgb A1c 7.4, BS still high, cont lantus Current Visit: No Qualifiers: Diabetes mellitus type: type 2 Diabetes mellitus complication status: without complication Qualified Code(s): E11.9 - Type 2 diabetes mellitus without complications (4) GERD (gastroesophageal reflux disease) Status: Chronic Assessment and plan: protonix 40 mg po every day Current Visit: No (5) Acute renal disease Status: Resolved Assessment and plan: chronic stage III renal disease Current Visit: No (6) Hypertension Status: Chronic Assessment and plan: cont cozaar 50 mg po bid Current Visit: No (7) Dysarthria Status: Acute Assessment and plan: 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 We will continue to diurese her. She does not want a [place]. We cannot adequately measure her output without one. Dr. Lai did spend speak with both herself and her about her breast cancer and is set up outpatient appointments to see Dr. Alcazar and an oncologist. I spoke with her and her both today and yesterday at the bedside. Gave them an update on her condition. She usually sees Dr. Magdaleno for her renal problems. Exam - Constitutional Vitals: Period Temp Pulse Resp BP Sys/Eli Pulse Ox Last 24 Hr 97.3 F-98.1 F 62-76 18-20 124-187/56-79 93-99 Exam: Heart Rate-[RRR] Lungs-[CTAB] GI-[+bs soft, NT] Ext-[1+ edema] Neuro [Motor 5/5], [alert and oriented times 3 ] psych [normal mood and affect] General [no acute distress] Results - Labs CBC & BMP: 02/04/17 03:55 02/04/17 03:55 Lab Results: I have reviewed the past 24 hour labs - Diagnostic Findings Procedure: Ultrasound: report reviewed by me (no dvt )
[2017-02-04] MEDS: FUROSEMIDE 40 MG TABLET PO SCH (16:09)
[2017-02-04] MEDS: WARFARIN 3 MG TABLET PO SCH (18:15)
[2017-02-04] MEDS: AMITRIPTYLINE 25 MG TABLET PO SCH (21:50)
[2017-02-05 04:46] LABS: Basophils % 0.1 % (0.0-0.8); Eosinophils # 0.1 10*3/uL (0.0-0.87); Eosinophils % 1.8 % (0.00-10.9); Hematocrit 27.7 VOL% (35.7-47.0); Hemoglobin 8.4 GM/DL (12.0-16.0); Immature Granulocytes % 0.4 %; Immature Granulocytes Absolute 0.03 #; Lymphocytes # 1.1 10*3/uL (1.4-4.0); Lymphocytes % 16.8 % (21.3-54.2); Mean Corpuscular HGB Conc 30.3 GM/DL (32-36); Mean Corpuscular Hemoglobin 26 PG (27-34); Mean Corpuscular Volume 86.8 FL (87-102); Mean Platelet Volume 10.8 FL (9.6-12.0); Monocytes # 0.6 10*3/uL (0.11-0.8); Monocytes % 9.1 % (1.7-12.7); Neutrophils # 4.8 10*3/uL (1.4-7.4); Neutrophils % 71.8 % (38.7-73.9); Platelet Count 231 T/CUMM (130-400); Red Blood Count 3.19 MC/CUMM (3.8-5.5); Red Cell Distribution Width 21.3 % (9.3-17.3); White Blood Count 6.7 T/CUMM (4-12)
[2017-02-05 05:22] LABS: Calcium 7.7 MG/DL (8.5-10.1); Osmolality,Calculated 284.3 MOS/KG (273-304); Potassium 4.1 MMOL/L (3.5-5.1)
[2017-02-05 05:47] LABS: INR 2.6
[2017-02-05 06:02] LABS: PT Patient Result 28.8 SECS
[2017-02-05] MEDS: LOSARTAN 50 MG TABLET PO SCH ×2 (08:25→21:30)
[2017-02-05] MEDS: hydrALAZINE 25 MG TABLET PO SCH ×3 (08:25→21:30)
[2017-02-05] MEDS: sitaGLIPtin 25 MG TABLET PO SCH (08:25)
[2017-02-05] MEDS: ISOSORBIDE MONONITRATE 60 MG TABLET PO SCH (08:25)
[2017-02-05] MEDS: ASPIRIN CHEW 81 MG TABLET PO SCH (08:25)
[2017-02-05] MEDS: DOCUSATE SODIUM 100 MG CAPSULE PO SCH ×2 (08:25→21:30)
[2017-02-05] MEDS: CARVEDILOL 25 MG TABLET PO SCH ×2 (08:25→21:30)
[2017-02-05] MEDS: SIMVASTATIN 40 MG TABLET PO SCH (08:25)
[2017-02-05] MEDS: FUROSEMIDE 40 MG TABLET PO SCH ×2 (08:25→15:32)
[2017-02-05] MEDS: PANTOPRAZOLE 40 MG TABLET PO SCH ×2 (08:26→21:30)
[2017-02-05] MEDS: INSULIN GLARGINE 100 UNIT/ML SUBCUT SCH (08:26)
[2017-02-05] MEDS: INSULIN LISPRO 100 UNIT/ML SUBCUT SCH ×4 (09:29→21:31)
[2017-02-05] MEDS ORDERED: SODIUM CHLORIDE 0.9% 250 ML IV PRN (10:41)
[2017-02-05 11:16] LABS: INR 2.4; Partial Thromboplastin Time 39.9 SECS (0-40)
[2017-02-05 11:23] LABS: PT Patient Result 26.5 SECS
--- NOTE | 2017-02-05 13:35 | Gastrointestinal Consult Note ---
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 She is a slow drift in her hematocrit basically because she cannot come off of her Coumadin and has these vessels as well as other multifactorial reasons for the anemia. She likely has some nutritional deficiencies as well as bone marrow suppression caused by her kidney/heart disease. Replacement is most appropriate at this point. Of her anemia is also likely dilutional from excessive fluids/currently inability to diuresis as well. Her hematocrit is in its usual range we have been following for many years. We can increase her Protonix to 40 mg twice daily to maximally suppress her gastritis but other than watching her and transfusing when necessary I have no other major suggestions. Current Visit: No (2) Anemia Status: Acute Assessment and plan: As noted above. This is similar to my recommendations from 12/16/16 1 month ago. Unfortunately her situation has not changed much. She still requires anticoagulation and still has renal dysfunction although moderately better than it had been before. The patient decided she does not want to have any further dialysis and so delusional effects may be more pronounced in her blood. I do not believe that she needs repeat upper endoscopy colonoscopy or capsule endoscopy outside of active bleeding i.e. bright red blood per rectum hematemesis or melena. Current Visit: Yes (3) Guaiac positive stools Status: Acute Assessment and plan: As noted above, this is likely secondary to the AVMs or gastritis present possibly hemorrhoids. Current Visit: Yes (4) Gastritis determined by endoscopy Status: Acute Assessment and plan: Increase Protonix to 40 mg p.o. twice daily and observe hematocrit over time. No repeat endoscopy is anticipated this admission. Current Visit: Yes History of Present Illness Chief complaint: Guaiac positive stools, patient with previous workup for anemia. History of present illness: Ms. Yañez is a 66 year old female who has been previously seen by me initially while Dr. Du was on vacation back in December 2014. She has a [employer] mitral valve prosthesis with Coumadin use on a routine basis. She has been seen by myself and Dr. Moctezuma on multiple occasions. Dr. Moctezuma actually did a upper endoscopy on this patient back on 02/13/16 due to her atypical chest pain and anemia was felt to have a small hiatal hernia as well as a normal- appearing esophagus and mild antral gastritis, gastric polyps were noted and the pyloric channel and duodenal bulb showed AVMs. His suggestion at that time was to minimize her INR to whatever degree is possible and to continue with Protonix. The patient had been on double dose Protonix in the past when I last saw her in December 2016 I do note that the patient had undergone previous colonoscopy by Dr. Du as recently as 06/13/14 at which time he noted that she had mild pelvic scarring but adequate visualization to the cecum with scattered diverticuli in the left colon and a few hyperplastic polyps noted in the sigmoid as well as second-degree hemorrhoids. She will really not need a repeat colonoscopy until June 2019. Because of the ongoing bleeding Dr. Du did order a capsule endoscopy which was performed on 06/22/14 which showed several AVMs that were nonbleeding in the mid jejunum without other significant pathology. I do not believe that she would benefit from repeat endoscopic evaluation as these have been checked as recently as . I strongly suspect that her confused affect is likely due to anoxic encephalopathy perhaps with her recent sepsis episode that produced the ischemic hepatitis. When seen previously in the hospital approximately a month ago her hematocrit nadired at 23.5, she was awaiting dialysis at that time. Her hematocrit pop back up again to 31.2 and has slowly been drifting down over this last month going from 32.3-->28.2% this admission with a guaiac positivity to her stools and a hematocrit drop subsequently down to 27.7%. She is back on her Coumadin and her present INR is 2.4 which is therapeutic. Patient's creatinine is 1.9 at this time with a BUN of 27. The stools have normal appearance, the patient is taking food well, given the fact that she is on her Coumadin her hematocrit is actually surprisingly stable in her usual range. This patient does have guaiac positivity but is likely due to the AVMs in her small bowel. The only recommendations that I have would be to increase the proton pump inhibition to twice daily to maximally suppress the gastritis presenting in her stomach. I do not see a set of repeat liver function tests but we will check that along with a reticulocyte count. With her need for constant anticoagulation I am not sure that I have much to offer her in terms of additional testing. We need to see that she is actively bleeding before considering a recheck of any scope, otherwise we know the etiologies producing a slow drift in her hematocrit at the present time. Home Medications Medication Instructions Recorded Confirmed Type Aspirin EC Tab 81 mg PO DAILY 08/15/15 02/02/17 History Pantoprazole Tab [Protonix Tab] 40 mg PO DAILY #90 tablet 02/17/16 02/02/17 Rx Carvedilol [Coreg] 25 mg PO BID 12/13/16 02/02/17 History Ferrous Sulfate Tab [Feosol 325 mg PO QOTHER DAY 12/13/16 02/02/17 History Original Tab] Isosorbide Mononitrate [Isosorbide 60 mg PO DAILY 12/13/16 02/02/17 History Mononitrate ER] Simvastatin [Zocor] 40 mg PO DAILY 12/13/16 02/02/17 History Warfarin Sodium 5 mg PO DAILY 12/13/16 02/02/17 History sitaGLIPtin [Januvia] 25 mg PO DAILY #30 tablet 12/23/16 02/02/17 Rx Albuterol Sulfate [Proair HFA] 2 puff INH Q4H PRN 02/02/17 02/02/17 History Amitriptyline [Elavil] 25 mg PO DAILY 02/02/17 02/02/17 History Estradiol [Estradiol Tab] 0.5 mg PO DAILY 02/02/17 02/02/17 History Potassium Chloride 10 meq PO BID 02/02/17 02/02/17 History chlordiazePOXIDE [Librium] 10 mg PO DAILY 02/02/17 02/02/17 History hydrALAZINE TAB [Apresoline Tab] 25 mg PO TID 02/02/17 02/02/17 History Allergies Allergy/AdvReac Type Severity Reaction Status Date / Time No Known Allergies Allergy Verified 12/13/16 11:50 Medical,Surgical,& Family Hx - Medical History Cardio: History of: CAD, Hypertension, [place], Valvular Heart Disease (S/p mechanical valve replacement), Cardiovascular Problems No history of: Aneurysm, Cardiac Dysrhythmia, Cerebrovascular Disease, Congenital Heart Disease, CHF, Pacemaker, PVD Psychological: History of: Depression No history of: Anxiety Disorders, ADHD, Behavior Problems, Bipolar Disorder, Previous Suicide Attempt, Psychiatric/Substance Abuse Tx, Schizophrenia, Violent Behavior, Psychiatric Problems Neurology: History of: TIA No history of: Brain Aneurysm, Cerebral Hemorrhage, Cerebrovascular Accident , Cerebral Palsy, Dementia, Migraine, Multiple Sclerosis, Parkinson's Disease, Peripheral Neuropathy, Seizures, Vertigo, Neurologocal Cancer HEENT: History of: Eye Problem (NEAR SIGHTED FAR SIGHTED) No history of: Ear Problem, Dental Problems, Glaucoma, Oral Cancer, HEENT Problems Endocrine: History of: Diabetes Mellitus (NIDDM), Dyslipidemia, Thyroid Disorder No history of: Adrenal Disease, Diabetes Mellitus (IDDM), Endocrine Cancer, Endocrine Problems Rheumatology: No history of;: Fibromyalgia, Gout, Myasthenia Gravis, Psoriasis, Rheumatoid Arthritis, Sjogrens, Systemic Lupus Erythematosus, Rheumatological Problems Respiratory: No history of: Asthma, Bronchitis, COPD, Intubation, Obstructive Sleep Apnea (STATES THAT SHE WAS TESTED AT [facility] AND DOESNT HAVE DALLIN), Pulmonary Embolism, Pulmonary Hypertension, Pneumonia, Lung Cancer, Respiratory Problems Renal: History of: Renal Failure, Renal Problems (CKI) No history of: Renal (Kidney) Cancer, Dialysis Genitourinary: History of: Kidney Stones No history of: Bladder Problem, Recurring Urinary Tract Infections, Genitourinary Cancer, Problems Gastrointestinal: History of: Diverticulitis/ Diverticulosis (left-sided diverticulosis), GERD, Gastrointestinal Bleed (multiple small bowel AVMs, or mild gastritis), Polyps (sigmoid hyperplastic polyps), GI Problems No history of: Bowel Obstruction, Clostridium Difficile, Crohn's Disease, Esophageal Varices, Hemorrhoids, Hematochezia, Hepatitis, Liver Problems, Pancreatitis, Ulcerative Colitis, Gastrointestinal Cancer Musculoskeletal: No history of: Amputation, Back/Neck Problems, Degenerative Disk Disease, Herniated Disk, Osteoporosis, Musculoskeletal Cancer, Musculoskeletal Problems Hematology: History of: Anemia No history of: Blood Transfusion Reaction, Bleeding Problems, Clotting Problems, Sickle Cell Disease, Hematologic Cancer, Blood Disorders Reproductive: History of: Reproductive Problems No history of: Abnormal Pap Smear, Breast Cancer, Endometriosis, Ectopic , Ovarian Cysts, Complication, Sexually Transmitted Disorders , Reproductive Cancer Other: No history of: Anesthesia Reactions, Anaphylaxis, Cancer, Eczema, HIV, Malignant Hyperthermia, MRSA, Vancomycin-Resistant Enterococci, Skin Problems, Miscellaneous Medical Problems - Surgical History Cardiac Surgeries: Sugical HX of: Cardiac Catheterization (with stents), Cardiac Surgery (triple bypass) Patient Denies: Femoral-Popliteal Bypass Graft, Carotid Endarterectomy, Internal Defibrillator, Vascular Access Devices Thoracic Surgeries: Patient denies;: Kidney (Renal Surgery), Lithotripsy, Nephrectomy, Organ Transplant, Lobectomy Neurologic Surgeries: Patient denies: Brain Aneurysm, Cerebral Hemorrhage, Neurologic Surgery HEENT Surgeries: Patient denies: Carotid Endarterectomy, Eye Surgery, Thyroid Surgery, Tonsilectomy & Adenoidectomy Abdominal Surgeries: Surgical HX of: Colonoscopy, EGD Patient denies: Abdominal Surgery, Appendectomy, Cholecystectomy, Gastric Bypass Surgery, Hernia Repair, Splenectomy Reproductive Surgeries: Surgical HX of;: Gynecologic Surgery, Hysterectomy Patient denies;: Breast Surgery, Section, Cystoscopy, Dilation and Curettage, Genitourinary Surgery, Tubal Ligation Orthopedic Surgeries: Patient denies;: Implanted Devices, Orthopedic Surgery, Spinal Surgery, Total Hip Replacement, Total Knee Replacement - Family History Family History: Reports;: Family Cancer (MOTHER CERVICAL), Family Stroke (FATHER ) Denies;: Family Anesthesia Reaction, Family Diabetes, Family Heart Disease, Family Hypertension, Family Psychiatric Problems - Social History Smoking Status: Current every day smoker Frequency of Alcohol Use: None Type of Drug Use: None Review of systems: Constitutional: Denies fever, chills, nausea, and vomiting Eyes: Denies dry eyes, and scleral icterus HENT: Denies headaches Cardiovascular: Denies acute chest pain and claudication Respiratory: Occasional shortness of breath, wheezing, and difficulty breathing, denies cough Gastrointestinal: As noted in the HPI Genitourinary: Denies dysuria and hematuria Neurologic: Denies vision loss, and loss of sensation Musculoskeletal: Admits to joint swelling, joint stiffness, and muscular weakness Psychiatric: Mild dementia, depression but no edwina symptoms Heme-Lymph: Admits to easy bruising, lymph node enlargement or tenderness, night sweats, excessive bleeding Allergies-immunologic: Denies pruritus and rhinorrhea Exam - Constitutional Vitals: Period Temp Pulse Resp BP Sys/Eli Pulse Ox Last 24 Hr 97.2 F-98 F 66-83 18-20 117-163/56-75 96-100 Exam: Constitutional: Well-developed, well-nourished, alert, and in no acute distress Head and face: Head: Normocephalic atraumatic Eyes: Conjunctiva without injection, no gross scleral icterus, pupils equal and round bilaterally Ears: Intact to conversation in both ears Nose: External appearance is normal, nares patent Mouth: Oral mucous membranes moist without erythema dentition noted to be without erosion Neck: Normal appearance, no masses or tenderness, trachea midline Thyroid: Gland midline and appropriate size for age Respiratory: Normal respiratory effort, clear to auscultation without wheezes, rhonchi or rales Cardiovascular: Regular rate and rhythm, normal S1, S2, the exam is with metallic click in the left lower sternal border with slight systolic ejection murmur Gastrointestinal: Nontender to palpation, normal active bowel sounds, tone normal without rigidity or guarding, no masses present, no hepatomegaly, no spleen tip felt. No rectal exam obtained--stool reported brown and guaiac positive from lab. Lymphatic: Neck without adenopathy, axilla without lymphadenopathy present Musculoskeletal: Right and left lower extremities with 1-2+ evidence of edema Skin and subcutaneous tissue: No rashes or ulcerations noted, normal skin turgor, digits and nails without clubbing/cyanosis/deformities. Neurologic: The patient is grossly oriented to person place and time, cranial nerves show tongue movements are normal with normal tongue extrusion midline, light touch sensation is intact. Psychiatric: No hallucinations or delusions are present, does not appear depressed Results - Labs CBC & BMP: 02/05/17 04:34 02/05/17 04:34 Specialty Discharge - Follow Up or Referrals
--- NOTE | 2017-02-05 14:00 | Hospitalist Progress Note ---
Assessment and Plan (1) Acute combined systolic and diastolic CHF, NYHA class 3 Status: Acute Assessment and plan: Concerned about worsening renal function due to rising CO2 will get ABG to correlate. Current Visit: No (2) History of heart valve replacement with mechanical valve Status: Chronic Assessment and plan: inr therapeutic Current Visit: No (3) Diabetes Status: Chronic Assessment and plan: hgb A1c 7.4, BS controlled, cont lantus Current Visit: No Qualifiers: Diabetes mellitus type: type 2 Diabetes mellitus complication status: without complication Qualified Code(s): E11.9 - Type 2 diabetes mellitus without complications (4) GERD (gastroesophageal reflux disease) Status: Chronic Assessment and plan: protonix 40 mg po bid Current Visit: No (5) Acute renal disease Status: Resolved Assessment and plan: chronic stage III renal disease, worried about tolerance to lasix, Dr. 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 Jefferson indicates the patient has a history of small bowel AVMs because she has mechanical valves however she will have to continue on anticoagulation to avoid further strokes. We will continue to give blood as needed. 1 unit packed red blood cells will be given this morning Current Visit: Yes Hospitalist: Subjective Interval history: I will have both Dr. Victoria and Dr. Gonzalez see her today. Patient has a history of small bowel AVMs but must be on anticoagulation due to mechanical valves. I am also concerned about over diuresis and as her bicarb started to go up with diuresis yesterday. I will have Dr. Magdaleno to see her today but I want to avoid making her renal failure worse. She is already had a previous occasion where she had to be on dialysis. Sleep study was performed in September 2015 which did not show sleep apnea. Exam - Constitutional Vitals: Period Temp Pulse Resp BP Sys/Eli Pulse Ox Last 24 Hr 97.2 F-98 F 66-83 18-20 117-163/56-75 96-100 Exam: Heart Rate-[RRR] Lungs-[CTAB] GI-[+bs soft, NT] Ext-[2+ edema] Neuro [Motor 5/5], [alert and oriented times 3 ] psych [depressed mood and affect] General [no acute distress] Results - Labs CBC & BMP: 02/05/17 04:34 02/05/17 04:34 Lab Results: I have reviewed the past 24 hour labs Labs: Blood cultures 2 negative no growth Specialty Discharge - Follow Up or Referrals
[2017-02-05] MEDS ORDERED: WARFARIN 5 MG TABLET PO SCH (14:02)
[2017-02-05] MEDS ORDERED: WARFARIN 3 MG TABLET PO SCH (14:06)
--- NOTE | 2017-02-05 14:54 | Nephrology Consult Note ---
History of Present Illness Chief complaint: CKD Stage 2 History of present illness: Ms. Yañez is a 66 year old female with a history of chronic renal impairment and creatinine of 1.9. She has history of heart disease with a mitral valve replacement in the year 2009 and a current ejection fraction of approximately 20%. She presents with some peripheral edema and shortness of breath. She has recently had a breast biopsy with a diagnosis of breast cancer. She is diabetic. On exam she is able to lie flat and is in no distress. Her chest is clear and her heart without rub or gallop abdomen is soft. Extremities with 2+ peripheral edema. Chest x-ray demonstrates some interstitial pulmonary edema 2 days ago. Impression: Chronic renal impairment which is fairly stable #2 congestive failure with an ejection fraction of 20% and previous mitral valve replacement # 3 chronic anticoagulation #4 diabetes mellitus Plan: #1 continue diuresis in view of her edema and shortness of breath. Home Medications Medication Instructions Recorded Confirmed Type Aspirin EC Tab 81 mg PO DAILY 08/15/15 02/02/17 History Pantoprazole Tab [Protonix Tab] 40 mg PO DAILY #90 tablet 02/17/16 02/02/17 Rx Carvedilol [Coreg] 25 mg PO BID 12/13/16 02/02/17 History Ferrous Sulfate Tab [Feosol 325 mg PO QOTHER DAY 12/13/16 02/02/17 History Original Tab] Isosorbide Mononitrate [Isosorbide 60 mg PO DAILY 12/13/16 02/02/17 History Mononitrate ER] Simvastatin [Zocor] 40 mg PO DAILY 12/13/16 02/02/17 History Warfarin Sodium 5 mg PO DAILY 12/13/16 02/02/17 History sitaGLIPtin [Januvia] 25 mg PO DAILY #30 tablet 12/23/16 02/02/17 Rx Albuterol Sulfate [Proair HFA] 2 puff INH Q4H PRN 02/02/17 02/02/17 History Amitriptyline [Elavil] 25 mg PO DAILY 02/02/17 02/02/17 History Estradiol [Estradiol Tab] 0.5 mg PO DAILY 02/02/17 02/02/17 History Potassium Chloride 10 meq PO BID 02/02/17 02/02/17 History chlordiazePOXIDE [Librium] 10 mg PO DAILY 02/02/17 02/02/17 History hydrALAZINE TAB [Apresoline Tab] 25 mg PO TID 02/02/17 02/02/17 History Allergies Allergy/AdvReac Type Severity Reaction Status Date / Time No Known Allergies Allergy Verified 12/13/16 11:50 Medical,Surgical,& Family Hx - Medical History Cardio: History of: CAD, Hypertension, [place], Valvular Heart Disease (S/p mechanical valve replacement), Cardiovascular Problems No history of: Aneurysm, Cardiac Dysrhythmia, Cerebrovascular Disease, Congenital Heart Disease, CHF, Pacemaker, PVD Psychological: History of: Depression No history of: Anxiety Disorders, ADHD, Behavior Problems, Bipolar Disorder, Previous Suicide Attempt, Psychiatric/Substance Abuse Tx, Schizophrenia, Violent Behavior, Psychiatric Problems Neurology: History of: TIA No history of: Brain Aneurysm, Cerebral Hemorrhage, Cerebrovascular Accident , Cerebral Palsy, Dementia, Migraine, Multiple Sclerosis, Parkinson's Disease, Peripheral Neuropathy, Seizures, Vertigo, Neurologocal Cancer HEENT: History of: Eye Problem (NEAR SIGHTED FAR SIGHTED) No history of: Ear Problem, Dental Problems, Glaucoma, Oral Cancer, HEENT Problems Endocrine: History of: Diabetes Mellitus (NIDDM), Dyslipidemia, Thyroid Disorder No history of: Adrenal Disease, Diabetes Mellitus (IDDM), Endocrine Cancer, Endocrine Problems Rheumatology: No history of;: Fibromyalgia, Gout, Myasthenia Gravis, Psoriasis, Rheumatoid Arthritis, Sjogrens, Systemic Lupus Erythematosus, Rheumatological Problems Respiratory: No history of: Asthma, Bronchitis, COPD, Intubation, Obstructive Sleep Apnea (STATES THAT SHE WAS TESTED AT [facility] AND DOESNT HAVE DALLIN), Pulmonary Embolism, Pulmonary Hypertension, Pneumonia, Lung Cancer, Respiratory Problems Renal: History of: Renal Failure, Renal Problems (CKI) No history of: Renal (Kidney) Cancer, Dialysis Genitourinary: History of: Kidney Stones No history of: Bladder Problem, Recurring Urinary Tract Infections, Genitourinary Cancer, Problems Gastrointestinal: History of: Diverticulitis/ Diverticulosis (left-sided diverticulosis), GERD, Gastrointestinal Bleed (multiple small bowel AVMs, or mild gastritis), Polyps (sigmoid hyperplastic polyps), GI Problems No history of: Bowel Obstruction, Clostridium Difficile, Crohn's Disease, Esophageal Varices, Hemorrhoids, Hematochezia, Hepatitis, Liver Problems, Pancreatitis, Ulcerative Colitis, Gastrointestinal Cancer Musculoskeletal: No history of: Amputation, Back/Neck Problems, Degenerative Disk Disease, Herniated Disk, Osteoporosis, Musculoskeletal Cancer, Musculoskeletal Problems Hematology: History of: Anemia No history of: Blood Transfusion Reaction, Bleeding Problems, Clotting Problems, Sickle Cell Disease, Hematologic Cancer, Blood Disorders Reproductive: History of: Reproductive Problems No history of: Abnormal Pap Smear, Breast Cancer, Endometriosis, Ectopic , Ovarian Cysts, Complication, Sexually Transmitted Disorders , Reproductive Cancer Other: No history of: Anesthesia Reactions, Anaphylaxis, Cancer, Eczema, HIV, Malignant Hyperthermia, MRSA, Vancomycin-Resistant Enterococci, Skin Problems, Miscellaneous Medical Problems - Surgical History Cardiac Surgeries: Sugical HX of: Cardiac Catheterization (with stents), Cardiac Surgery (triple bypass) Patient Denies: Femoral-Popliteal Bypass Graft, Carotid Endarterectomy, Internal Defibrillator, Vascular Access Devices Thoracic Surgeries: Patient denies;: Kidney (Renal Surgery), Lithotripsy, Nephrectomy, Organ Transplant, Lobectomy Neurologic Surgeries: Patient denies: Brain Aneurysm, Cerebral Hemorrhage, Neurologic Surgery HEENT Surgeries: Patient denies: Carotid Endarterectomy, Eye Surgery, Thyroid Surgery, Tonsilectomy & Adenoidectomy Abdominal Surgeries: Surgical HX of: Colonoscopy, EGD Patient denies: Abdominal Surgery, Appendectomy, Cholecystectomy, Gastric Bypass Surgery, Hernia Repair, Splenectomy Reproductive Surgeries: Surgical HX of;: Gynecologic Surgery, Hysterectomy Patient denies;: Breast Surgery, Section, Cystoscopy, Dilation and Curettage, Genitourinary Surgery, Tubal Ligation Orthopedic Surgeries: Patient denies;: Implanted Devices, Orthopedic Surgery, Spinal Surgery, Total Hip Replacement, Total Knee Replacement - Family History Family History: Reports;: Family Cancer (MOTHER CERVICAL), Family Stroke (FATHER ) Denies;: Family Anesthesia Reaction, Family Diabetes, Family Heart Disease, Family Hypertension, Family Psychiatric Problems - Social History Smoking Status: Current every day smoker Frequency of Alcohol Use: None Type of Drug Use: None Review of Systems 12 point system: reviewed and no additional remarkable complaints except as stated Exam - Vital Signs Vital signs: Period Temp Pulse Resp BP Sys/Eli Pulse Ox Last 24 Hr 97.2 F-98.2 F 66-83 18-20 117-163/56-75 96-100 - General Appearance General appearance: well-developed, well-nourished, appears started age EENT: ATNC Neck: no JVD, no thyromegaly, no carotid bruit, supple Respiratory: no kyphosis, no scoliosis Cardiology: no murmurs, no rub, no gallops, no edema, regular rate, regular rhythm, normal S1, normal S2 Gastrointestinal: normoactive bowel sounds Integumentary: no rash, warm and dry Neurologic: no focal deficit, no asterixis, alert and oriented x3, reflexes 2+ and symmetric, gait normal, strength 5/5 Musculoskeletal: no deformities, no erythema, no cyanosis, no clubbing Psychiatric: mood/affect appropriate (2+ pretibial edema), cooperative Results - Labs CBC & BMP: 02/05/17 04:34 02/05/17 04:34 Assessment and Plan - Time spent with patient Time spent with patient: Greater than 30 minutes (1) CKD (chronic kidney disease) stage 2, GFR 60-89 ml/min Status: Acute Current Visit: Yes (2) Congestive heart failure Status: Acute Assessment and plan: Continue diuresis Current Visit: No (3) Edema extremities Status: Acute Current Visit: Yes Specialty Discharge - Follow Up or Referrals
[2017-02-05 15:01] LABS: ABG Base Excess 9.3 MMOL/L (-2.5-2.5); ABG HCO3 32.7 MMOL/L (20-26); ABG Oxygen Saturation 79.4 % (95-100); ABG PCO2 58.5 MM HG (35-48); ABG PH 7.395 (7.35-7.45); ABG PO2 46.4 MM HG (80-95); ABG TCO2 33.2 MMOL/L (23-27)
[2017-02-05 18:59] LABS: Hematocrit 31.8 VOL% (35.7-47.0); Hemoglobin 9.8 GM/DL (12.0-16.0)
[2017-02-05] MEDS: ALBUTEROL/IPRATROPIUM 3 ML NEB RESP TX SCH (19:27)
[2017-02-05] MEDS ORDERED: FAMOTIDINE 20 MG TABLET PO ONE (20:14)
[2017-02-05] MEDS ORDERED: FAMOTIDINE 20 MG TABLET ONE (20:17)
[2017-02-05] MEDS: AMITRIPTYLINE 25 MG TABLET PO SCH (21:30)
[2017-02-06] MEDS: ALBUTEROL/IPRATROPIUM 3 ML NEB RESP TX SCH ×3 (00:25→13:04)
[2017-02-06 05:36] LABS: Partial Thromboplastin Time 33.4 SECS (0-40)
[2017-02-06 05:38] LABS: INR 2.3
[2017-02-06 05:42] LABS: INR 2.3
[2017-02-06 05:47] LABS: Calcium 7.9 MG/DL (8.5-10.1); Osmolality,Calculated 288.3 MOS/KG (273-304); Potassium 4.1 MMOL/L (3.5-5.1)
[2017-02-06 05:48] LABS: Calcium 7.9 MG/DL (8.5-10.1); Magnesium 1.9 MG/DL (1.8-2.4); Osmolality,Calculated 291.1 MOS/KG (273-304); Potassium 4.1 MMOL/L (3.5-5.1)
[2017-02-06 05:50] LABS: Bilirubin,Direct 0.1 MG/DL (0.0-0.20); Bilirubin,Total 1.1 MG/DL (0.2-1.0); Total Protein 6.7 G/DL (6.4-8.3)
[2017-02-06 05:55] LABS: Basophils % 0.3 % (0.0-0.8); Eosinophils # 0.1 10*3/uL (0.0-0.87); Eosinophils % 0.8 % (0.00-10.9); Hematocrit 31.7 VOL% (35.7-47.0); Hemoglobin 9.9 GM/DL (12.0-16.0); Immature Granulocytes % 0.3 %; Immature Granulocytes Absolute 0.02 #; Mean Corpuscular HGB Conc 31.2 GM/DL (32-36); Mean Corpuscular Hemoglobin 27 PG (27-34); Mean Corpuscular Volume 85.9 FL (87-102); Mean Platelet Volume 10.3 FL (9.6-12.0); Monocytes # 0.7 10*3/uL (0.11-0.8); Monocytes % 8.9 % (1.7-12.7); Neutrophils # 5.6 10*3/uL (1.4-7.4); Neutrophils % 75.7 % (38.7-73.9); Platelet Count 223 T/CUMM (130-400); Red Blood Count 3.69 MC/CUMM (3.8-5.5); Red Cell Distribution Width 20.3 % (9.3-17.3); White Blood Count 7.4 T/CUMM (4-12)
[2017-02-06 05:56] LABS: PT Patient Result 26.1 SECS; PT Patient Result 26.2 SECS
[2017-02-06] MEDS: PANTOPRAZOLE 40 MG TABLET PO SCH (08:46)
[2017-02-06] MEDS: hydrALAZINE 25 MG TABLET PO SCH ×2 (08:46→15:05)
[2017-02-06] MEDS: LOSARTAN 50 MG TABLET PO SCH (08:46)
[2017-02-06] MEDS: sitaGLIPtin 25 MG TABLET PO SCH (08:46)
[2017-02-06] MEDS: FUROSEMIDE 40 MG TABLET PO SCH (08:46)
[2017-02-06] MEDS: ISOSORBIDE MONONITRATE 60 MG TABLET PO SCH (08:46)
[2017-02-06] MEDS: DOCUSATE SODIUM 100 MG CAPSULE PO SCH (08:47)
[2017-02-06] MEDS: SIMVASTATIN 40 MG TABLET PO SCH (08:47)
[2017-02-06] MEDS: CARVEDILOL 25 MG TABLET PO SCH (08:47)
[2017-02-06] MEDS: INSULIN GLARGINE 100 UNIT/ML SUBCUT SCH (08:48)
[2017-02-06] MEDS: INSULIN LISPRO 100 UNIT/ML SUBCUT SCH ×3 (08:48→17:12)
--- NOTE | 2017-02-06 08:51 | Gastrointestinal Progress Note ---
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 She is a slow drift in her hematocrit basically because she cannot come off of her Coumadin and has these vessels as well as other multifactorial reasons for the anemia. She likely has some nutritional deficiencies as well as bone marrow suppression caused by her kidney/heart disease. Replacement is most appropriate at this point. Of her anemia is also likely dilutional from excessive fluids/currently inability to diuresis as well. Her hematocrit is in its usual range we have been following for many years. We can increase her Protonix to 40 mg twice daily to maximally suppress her gastritis but other than watching her and transfusing when necessary I have no other major suggestions. 02/06/17--this patient is stable from a GI standpoint. She has a history of small bowel AVMs. She is on Coumadin for her artificial heart valve but the INR level is in target range, and occasional transfusion may be required to the location of the small bowel AVMs not being amenable to typical endoscopic treatment. She does have the option of going to higher level of care and undergoing double-balloon endoscopy. Continue the twice daily Protonix after discharge. Little else to add at this point, see full details in my HPI. I will see this patient next on Thursday, my partners will not visit unless alerted to problems in the interim. Current Visit: No (2) Anemia Status: Acute Assessment and plan: As noted above. This is similar to my recommendations from 12/16/16 1 month ago. Unfortunately her situation has not changed much. She still requires anticoagulation and still has renal dysfunction although moderately better than it had been before. The patient decided she does not want to have any further dialysis and so delusional effects may be more pronounced in her blood. I do not believe that she needs repeat upper endoscopy colonoscopy or capsule endoscopy outside of active bleeding i.e. bright red blood per rectum hematemesis or melena. 02/06/17--hematocrit is stable at 31.7% Current Visit: Yes (3) Guaiac positive stools Status: Acute Assessment and plan: As noted above, this is likely secondary to the AVMs or gastritis present possibly hemorrhoids. 02/06/17--No change from above. This is going to be a long-term problem for patient, continue on Protonix twice daily, nothing else to offer at this point. Current Visit: Yes (4) Gastritis determined by endoscopy Status: Acute Assessment and plan: Increase Protonix to 40 mg p.o. twice daily and observe hematocrit over time. No repeat endoscopy is anticipated this admission. 02/06/17--no change from above. Current Visit: Yes Gastroenterology - PN: Subj Interval history: Patient is eating well and defecating adequately, she has no abdominal pain, she is not having any black stools or bright red blood per rectum nor she experiencing any nausea or vomiting. A review of her liver function tests show that these are back to normal again with the exception of an albumin that is 3.0. Exam (Progress Note) - Constitutional Vitals: Period Temp Pulse Resp BP Sys/Eli Pulse Ox Last 24 Hr 97.4 F-98.7 F 68-105 16-22 116-190/56-86 88-100 General appearance: no acute distress - Eye Eye exam: Present: EOMI Pupils: Present: IRWIN - Respiratory Respiratory exam: Present: clear to auscultation bilaterally. Absent: rhonchi, stridor, wheezes - Cardiovascular Cardiovascular exam: Present: regular rate and rhythm - GI/Abdominal GI/Abdominal exam: Present: normal bowel sounds, soft. Absent: distended, guarding, tenderness - Extremities Exam Extremities exam: Present: edema - Neurological Exam Neurological exam: Present: alert, oriented X3 - Psychiatric Psychiatric exam: Present: normal affect, normal mood - Skin Skin exam: Present: warm Results - Labs CBC & BMP: 02/06/17 05:44 02/06/17 04:19 Specialty Discharge - Follow Up or Referrals
[2017-02-06] MEDS: ASPIRIN CHEW 81 MG TABLET PO SCH (08:57)
--- NOTE | 2017-02-06 10:23 | Nephrology Progress Note ---
Nephrology - PN: Subj Interval history: Ms. Yañez is seen in follow-up of her chronic renal impairment. She is up and about in her room. She has 2+ peripheral edema and some dyspnea on exertion. I think it is reasonable to increase her diuretics to drop her dry weight about 6-8 pounds. Will increase Lasix to 80 mg twice daily. Certainly this dose will need to be adjusted either in hospital or as an outpatient. I do not think that we will worsen her kidney function by getting her closer to a reasonable weight. Exam (PN)-Nephrology - Vital Signs Vital signs: Period Temp Pulse Resp BP Sys/Eli Pulse Ox Last 24 Hr 97.4 F-98.7 F 68-105 16-22 116-190/56-86 88-100 - Lab 02/06/17 05:44 02/06/17 04:19 Most recent lab results ABG pH 7.395 (7.35-7.45) 02/05/17 14:02 ABG pCO2 58.5 MM HG (35-48) H 02/05/17 14:02 ABG pO2 46.4 MM HG (80-95) L 02/05/17 14:02 ABG HCO3 32.7 MMOL/L (20-26) H 02/05/17 14:02 ABG O2 Saturation 79.4 % (95-100) L 02/05/17 14:02 Calcium 7.9 MG/DL (8.5-10.1) L 02/06/17 04:19 Magnesium 1.9 MG/DL (1.8-2.4) 02/06/17 04:19 Assessment and Plan (1) CKD (chronic kidney disease) stage 2, GFR 60-89 ml/min Status: Acute Current Visit: Yes (2) Congestive heart failure Status: Acute Assessment and plan: Continue diuresis Current Visit: No (3) Edema extremities Status: Acute Current Visit: Yes Specialty Discharge - Follow Up or Referrals Follow up with: Ravindra Alcazar MD [Physician] - 02/11/17 10:30 am
[2017-02-06] MEDS ORDERED: FUROSEMIDE 80 MG TABLET PO SCH (10:24)
--- NOTE | 2017-02-06 11:40 | Discharge Summary ---
Hospital Course - Hospital Course Hospital Course: Ms. Yañez is a 66 year old female with a past medical history of hypertension, congestive heart failure, diabetes mellitus who presents to the ED today with complaints of worsening shortness of breath with onset yesterday with a bnp of 2250 and a chest xray which showed pulmonary edema. Patient has a history of mechanical valves and is monitored by Dr. Gant from cardiology. Her INR on admission was 1.9. We have adjusted her Coumadin to keep her INR between 2.5 and 3.5. Patient developed some acute blood loss anemia with racing of her Coumadin. Consulted Dr. Victoria and he informed me that she has small bowel AVMs and will just need to receive transfusion as needed. Her hemoglobin was 8.8 on admission and dropped down to 8.4. She received 1 unit of packed red blood cells and her hemoglobin stabilized at 9.9. Her INR in 3 days and hemoglobin need to be checked weekly. She also has evidence of acute on chronic combined systolic and diastolic congestive heart failure exacerbation. She was diuresed throughout with IV Lasix but her CO2 level began to rise. Consulated Dr. Magdaleno. Dr. Montejo saw her for Dr. Magdaleno. She has chronic renal failure with a creatinine stable at 1.9. he recommended keeping her Lasix at 80 mg p.o. twice daily. Her repeat echocardiogram was performed on February 02, 2017 showing an EF of 20% with mild to moderate concentric left hypertrophy and prosthetic valves and pulmonary hypertension with PAP of 54. We will test her to see if she needs oxygen at home. She has had a previous sleep study in 2016 but she did not require CPAP. Patient does have diabetes with a hemoglobin A1c of 7.4. We have started her on low-dose insulin. She also has problems with GERD and needs to stay on Protonix. Her hypertension is well controlled on her current medication regimen. She has been having problems with dysarthria. Her MRI of her brain shows chronic ischemic changes with multiple areas bilaterally of old infarcts. It is extremely important to keep her therapeutic on her Coumadin. I was contacted by Dr. Lai that her mammogram on December 09, 2016 and breast biopsy was positive for breast cancer. She has been currently set up with Dr. Alcazar to discuss surgical options. Patient will be discharged home today to follow-up with her primary care doctor, Dr. Alcazar, Dr. Calvit any as needed. She will have home health which they should check an INR in 3 days and call to Dr. Gant. She should have weekly hemoglobins and transfuse for hemoglobin less than 8. Patient is on estrogen is no longer to take it due to her breast cancer. We will get her a nebulizer machine for home for her COPD. Discharged home. - Time spent with patient Time with patient DS: Greater than 30 minutes (60 min) Diagnosis - Discharge Diagnosis (1) Acute combined systolic and diastolic CHF, NYHA class 3 Status: Acute (2) History of heart valve replacement with mechanical valve Status: Chronic (3) Diabetes Status: Chronic (4) GERD (gastroesophageal reflux disease) Status: Chronic (5) Acute renal disease Status: Resolved (6) Hypertension Status: Chronic (7) Dysarthria Status: Acute (8) Acute blood loss anemia Status: Acute Specialty Discharge - Follow Up or Referrals Follow up with: Ravindra Alcazar MD [Physician] - 02/11/17 10:30 am Discharge Plan - Discharge Data Disposition: Home Health Service Condition at Discharge: Stable Discharge Diet: diabetic diet, other (fluid restriction ) Activity: resume usual activities as tolerated, other (oxygen if qualifies ) Hygiene: no restrictions Weight Bearing at Discharge: full weight bearing - Discharge Medications New Albuterol/Ipratropium Neb [Duoneb] 3 ml RESP TX TID #90 vial Furosemide Tab [Lasix Tab] 80 mg PO BID DIURETIC #60 tablet Insulin Glargine,Hum.rec.anlog [Lantus SoloStar] 10 unit SUBCUT DAILY #3 ml Losartan [Cozaar] 50 mg PO BID #60 tablet Warfarin [Coumadin] 6 mg PO SuTuThSa@1800 #60 tablet Warfarin [Coumadin] 7.5 mg PO MoWeFr@1800 #30 tablet Continue Pantoprazole Tab [Protonix Tab] 40 mg PO DAILY #90 tablet Isosorbide Mononitrate [Isosorbide Mononitrate ER] 60 mg PO DAILY Ferrous Sulfate Tab [Feosol Original Tab] 325 mg PO QOTHER DAY Carvedilol [Coreg] 25 mg PO BID Simvastatin [Zocor] 40 mg PO DAILY Amitriptyline [Elavil] 25 mg PO DAILY chlordiazePOXIDE [Librium] 10 mg PO DAILY hydrALAZINE TAB [Apresoline Tab] 25 mg PO TID Albuterol Sulfate [Proair HFA] 2 puff INH Q4H PRN PRN Reason: Shortness Of Breath/Wheezing sitaGLIPtin [Januvia] 25 mg PO DAILY #30 tablet Discontinued Aspirin EC Tab 81 mg PO DAILY Potassium Chloride 10 meq PO BID Estradiol [Estradiol Tab] 0.5 mg PO DAILY No Action Warfarin Sodium 5 mg PO DAILY - Follow Up or Referral Follow Up: Alcazar,Ravindra Gordon MD [Physician] - 02/11/17 10:30 am Marcellus Magdaleno Jr., MD [Physician] - 1 Month Froylan Monet [REFERRING DOCTOR/PRACTITIONER] - 2 Weeks - Forms/Instructions Instructions: Warfarin (By mouth) Additional Discharge Instructions: inr in three days. call to [facility]. Weekly hemoglobins transfuse for hgb less than 8. no estrogen contraindicated due to breast cancer Exam - Constitutional Vitals: Period Temp Pulse Resp BP Sys/Eli Pulse Ox Last 24 Hr 97.4 F-98.7 F 68-105 16-22 116-190/56-86 88-100 General appearance: normal weight, no acute distress - Respiratory Respiratory exam: Present: clear to auscultation bilaterally - Cardiovascular Cardiovascular exam: Present: regular rate and rhythm. Absent: systolic murmur - GI/Abdominal GI/Abdominal exam: Present: normal bowel sounds, soft. Absent: tenderness - Extremities Exam Extremities exam: Present: edema - Neurological Exam Neurological exam: Present: alert, oriented X3 - Psychiatric Psychiatric exam: Present: normal affect, normal mood Discharge Results Procedures and tests throughout hospitalization: Pending Orders 02/02/17 12:50 Blood Culture Stat 02/07/17 04:00 BMP w/ Mg [Basic Metabolic Panel w/Mg] IN AM Comp Blood Count Auto Diff IN AM PT & PTT IN AM Prothrombin Time INR IN AM 02/08/17 04:00 BMP w/ Mg [Basic Metabolic Panel w/Mg] IN AM Comp Blood Count Auto Diff IN AM Labs on day of discharge: Labs from last 24 hours 02/06/17 02/06/17 02/06/17 07:38 05:44 04:19 WBC 7.4 RBC 3.69 L Hgb 9.9 L Hct 31.7 L MCV 85.9 L MCH 27 MCHC 31.2 L RDW 20.3 H Plt Count 223 MPV 10.3 Neut % (Auto) 75.7 H Lymph % (Auto) 14.0 L [place] % (Auto) 8.9 Eos % (Auto) 0.8 Baso % (Auto) 0.3 Neut # (Auto) 5.6 Lymph # (Auto) 1.0 L [place] # (Auto) 0.7 Eos # (Auto) 0.1 Baso # (Auto) 0.0 Immature Gran % 0.3 Nucleated RBC % 0.0 Immature Gran # 0.02 Nucleated RBCs # 0.00 Immature Plt Fraction 0.0 INR PT Patient/Control Mix Circ Anticoag PTT ABG pH ABG pCO2 ABG pO2 ABG HCO3 ABG Total CO2 ABG O2 Saturation ABG Base Excess Sodium Potassium Chloride Carbon Dioxide Anion Gap BUN Creatinine GFR Calculation BUN/Creatinine Ratio Glucose POC Glucose 167 H Calculated Osmolality Calcium Magnesium Total Bilirubin 1.10 H Direct Bilirubin 0.10 Indirect Bilirubin 1.0 AST 12 ALT 19 Alkaline Phosphatase 87 Total Protein 6.7 Albumin 3.0 L Free T4 Blood Type Antibody Screen Crossmatch 02/06/17 02/06/17 02/06/17 04:19 04:19 04:19 WBC RBC Hgb Hct MCV MCH MCHC RDW Plt Count MPV Neut % (Auto) Lymph % (Auto) [place] % (Auto) Eos % (Auto) Baso % (Auto) Neut # (Auto) Lymph # (Auto) [place] # (Auto) Eos # (Auto) Baso # (Auto) Immature Gran % Nucleated RBC % Immature Gran # Nucleated RBCs # Immature Plt Fraction INR 2.3 2.3 PT Patient/Control Mix 26.2 26.1 Circ Anticoag PTT 33.4 ABG pH ABG pCO2 ABG pO2 ABG HCO3 ABG Total CO2 ABG O2 Saturation ABG Base Excess Sodium 142 Potassium 4.1 Chloride 100 Carbon Dioxide 36 H Anion Gap 10.1 BUN 27 H Creatinine 1.90 H GFR Calculation 35 BUN/Creatinine Ratio 14.00 Glucose 163 H POC Glucose Calculated Osmolality 291.1 Calcium 7.9 L Magnesium 1.9 Total Bilirubin Direct Bilirubin Indirect Bilirubin AST ALT Alkaline Phosphatase Total Protein Albumin Free T4 Blood Type Antibody Screen Crossmatch 02/06/17 02/05/17 02/05/17 04:19 20:08 18:44 WBC RBC Hgb 9.8 L Hct 31.8 L MCV MCH MCHC RDW Plt Count MPV Neut % (Auto) Lymph % (Auto) [place] % (Auto) Eos % (Auto) Baso % (Auto) Neut # (Auto) Lymph # (Auto) [place] # (Auto) Eos # (Auto) Baso # (Auto) Immature Gran % Nucleated RBC % Immature Gran # Nucleated RBCs # Immature Plt Fraction INR PT Patient/Control Mix Circ Anticoag PTT ABG pH ABG pCO2 ABG pO2 ABG HCO3 ABG Total CO2 ABG O2 Saturation ABG Base Excess Sodium 141 Potassium 4.1 Chloride 101 Carbon Dioxide 37 H Anion Gap 7.1 BUN 27 H Creatinine 1.80 H GFR Calculation 38 BUN/Creatinine Ratio 15.00 Glucose 160 H POC Glucose 132 H Calculated Osmolality 288.3 Calcium 7.9 L Magnesium Total Bilirubin Direct Bilirubin Indirect Bilirubin AST ALT Alkaline Phosphatase Total Protein Albumin Free T4 Blood Type Antibody Screen Crossmatch 02/05/17 02/05/17 02/05/17 16:27 14:02 11:50 WBC RBC Hgb Hct MCV MCH MCHC RDW Plt Count MPV Neut % (Auto) Lymph % (Auto) [place] % (Auto) Eos % (Auto) Baso % (Auto) Neut # (Auto) Lymph # (Auto) [place] # (Auto) Eos # (Auto) Baso # (Auto) Immature Gran % Nucleated RBC % Immature Gran # Nucleated RBCs # Immature Plt Fraction INR PT Patient/Control Mix Circ Anticoag PTT ABG pH 7.395 ABG pCO2 58.5 H ABG pO2 46.4 L ABG HCO3 32.7 H ABG Total CO2 33.2 H ABG O2 Saturation 79.4 L ABG Base Excess 9.3 H Sodium Potassium Chloride Carbon Dioxide Anion Gap BUN Creatinine GFR Calculation BUN/Creatinine Ratio Glucose POC Glucose 208 H 122 H Calculated Osmolality Calcium Magnesium Total Bilirubin Direct Bilirubin Indirect Bilirubin AST ALT Alkaline Phosphatase Total Protein Albumin Free T4 Blood Type Antibody Screen Crossmatch 02/05/17 02/05/17 10:54 04:31 WBC RBC Hgb Hct MCV MCH MCHC RDW Plt Count MPV Neut % (Auto) Lymph % (Auto) [place] % (Auto) Eos % (Auto) Baso % (Auto) Neut # (Auto) Lymph # (Auto) [place] # (Auto) Eos # (Auto) Baso # (Auto) Immature Gran % Nucleated RBC % Immature Gran # Nucleated RBCs # Immature Plt Fraction INR PT Patient/Control Mix Circ Anticoag PTT ABG pH ABG pCO2 ABG pO2 ABG HCO3 ABG Total CO2 ABG O2 Saturation ABG Base Excess Sodium Potassium Chloride Carbon Dioxide Anion Gap BUN Creatinine GFR Calculation BUN/Creatinine Ratio Glucose POC Glucose Calculated Osmolality Calcium Magnesium Total Bilirubin Direct Bilirubin Indirect Bilirubin AST ALT Alkaline Phosphatase Total Protein Albumin Free T4 1.15 Blood Type A POSITIVE Antibody Screen Negative Crossmatch See Detail Preliminary micro results at discharge 02/02/17 12:50 Blood Culture - Preliminary Blood No growth at 3 days 02/02/17 12:19 Blood Culture - Preliminary Blood No growth at 3 days DS: Provider Date of admission: 02/02/17 13:07 Primary care physician: . No PCP Attending physician on admission: Mini Nguyen MD Consults: 02/03/17 14:58 Consult to Pharmacy [CONS] Routine Reason for Pharmacy Consult: Other Comment: manage warfarin 02/05/17 10:39 Consult to Physician [CONS] Routine Comment: gi bleed has to stay on coumadin Consulting Provider: Jose Elias Jefferson Consult to Specialist Group: Gastroenterology Person Notified: GABBY Date Notified: 02/05/17 Time Notified: 10:50 02/05/17 10:40 Consult to Physician [CONS] Routine Comment: chf and renal fxn, had to back off lasix Consulting Provider: Marcellus Magdaleno Jr. Consult to Specialist Group: Nephrology Person Notified: JUANA Date Notified: 02/05/17 Time Notified: 10:50 Discharging clinician: Mini Nguyen MD
[2017-02-06 12:41] VITALS: BP 138/65
[2017-02-06] MEDS ORDERED: WARFARIN 7.5 MG TABLET PO SCH (18:00)
[2017-02-07] MEDS ORDERED: WARFARIN 3 MG TABLET PO SCH (18:00)
== END 2017-02-06 17:38 | disposition home health service (06) | DRG 291 ==
LOC: EDUNIT# → EDBD → N.ED 11:25 → N.EDINP 13:07 → N.TELEN 15:26
PROVIDERS: ADMIT Internal Medicine; ATTEND Internal Medicine

== ENCOUNTER 2017-02-19 09:30 | Inpatient (IN) ==
[2017-02-19] MEDS ORDERED: SODIUM CHLORIDE 0.45% 1,000 ML IV SCH (11:30)
[2017-02-19 11:49] LABS: Basophils % 0.3 % (0.0-0.8); Eosinophils # 0.1 10*3/uL (0.0-0.87); Eosinophils % 0.8 % (0.00-10.9); Hematocrit 29.9 VOL% (35.7-47.0); Hemoglobin 9.3 GM/DL (12.0-16.0); Immature Granulocytes % 0.7 %; Immature Granulocytes Absolute 0.05 #; Lymphocytes # 0.9 10*3/uL (1.4-4.0); Lymphocytes % 12.3 % (21.3-54.2); Mean Corpuscular HGB Conc 31.1 GM/DL (32-36); Mean Corpuscular Hemoglobin 26 PG (27-34); Mean Corpuscular Volume 84.9 FL (87-102); Mean Platelet Volume 11.3 FL (9.6-12.0); Monocytes # 0.5 10*3/uL (0.11-0.8); Monocytes % 6.5 % (1.7-12.7); Neutrophils # 5.8 10*3/uL (1.4-7.4); Neutrophils % 79.4 % (38.7-73.9); Platelet Count 229 T/CUMM (130-400); Red Blood Count 3.52 MC/CUMM (3.8-5.5); Red Cell Distribution Width 20.6 % (9.3-17.3); White Blood Count 7.3 T/CUMM (4-12)
[2017-02-19 11:58] LABS: INR 1.3; PT Patient Result 14.3 SECS; Partial Thromboplastin Time 33.5 SECS (0-40)
[2017-02-19 12:16] LABS: Albumin 3.4 G/DL (3.4-5.0); Osmolality,Calculated 287.3 MOS/KG (273-304); Phosphorous 2.9 MG/DL (2.5-4.9); Potassium 4.1 MMOL/L (3.5-5.1)
--- NOTE | 2017-02-19 12:19 | EKG Report ---
Stationary ECG Study [facility] Test Date: 02/19/2017 12:19:14 PM Pat Name: SHIN WEI Department: Room: 424 Gender: F [employer]: : [id number] Requested by: Ravindra Rodriguez Order Number: [id number] Reading MD: JAIRO BESS Intervals [place] Rate: 77 P: 73 ME: 154 QRS: -1 QRSD: 115 T: 233 QT: 409 QTc: 440 Interpretive Statements SINUS RHYTHM MODERATE INTRAVENTRICULAR CONDUCTION DELAY ST DEVIATION AND MODERATE T-WAVE ABNORMALITY, CONSIDER ANTEROLATERAL ISCHEMIA ST DEVIATION AND MODERATE T-WAVE ABNORMALITY, CONSIDER INFERIOR ISCHEMIA Electronically Signed On 02-19-17 13:12:05 CDT by JAIRO BESS [email or web address]
[2017-02-19] MEDS ORDERED: HEPARIN DRIP 25,000 UNITS/500 ML PREMIX IV SCH (15:00)
[2017-02-19] MEDS: POTASSIUM CHLORIDE 10 MEQ TABLET PO SCH (16:26)
[2017-02-19] MEDS: INSULIN REGULAR 100 UNIT/ML SUBCUT SCH ×2 (16:26→22:36)
[2017-02-19] MEDS ORDERED: FUROSEMIDE 40 MG/4 ML VIAL IV ONE (17:32)
--- NOTE | 2017-02-19 17:32 | Cardiology Consult Note ---
Scotty James Lesley, THERESA, am scribing for, and in the presence of, Peter Alanis MD 17:32. Assessment and Plan - Time spent with patient Time spent with patient: Greater than 30 minutes (1) Breast cancer Status: Acute Assessment and plan: SEE LIST IN PLAN OF CARE BELOW 1. 66-year-old BMI 37.5 BF with multiple medical problems including hypertension, diabetes, CAD status post CABG/mechanical mitral valve replacement at least 7 years ago with severe ischemic cardiomyopathy (recently EF 20% with normally functioning mechanical mitral valve.), history of multiple GI bleeds, diagnosed with breast cancer for mastectomy in the morning. 2. She is obvious significant risk, but this is not elective surgery. Her Coumadin has been held several days with INR 1.3 but is now on heparin infusion on protocol. Resume heparin after surgery, his status surgery believes this can be done with a reasonable amount of safety. 3. Appears to have CKD with creatinine below 2 but previous history of acute renal failure with dialysis in the past. 4. Give IV Lasix 1 given her neck veins were elevated and she has a few crackles in her left base 5. Status post vein graft stents to RCA anastomosis and diagonal anastomosis in [address] 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 6. We will follow closely with you. Current Visit: Yes Qualifiers: Patient sex: female Laterality: left (2) Anemia Status: Chronic Assessment and plan: SEE LIST IN PLAN OF CARE BELOW Current Visit: No (3) CKD (chronic kidney disease) stage 2, GFR 60-89 ml/min Status: Chronic Assessment and plan: SEE LIST IN PLAN OF CARE BELOW Current Visit: No (4) Congestive heart failure Status: Chronic Assessment and plan: SEE LIST IN PLAN OF CARE BELOW Current Visit: No (5) Coronary artery disease Status: Chronic Assessment and plan: SEE LIST IN PLAN OF CARE BELOW Current Visit: No (6) History of heart valve replacement with mechanical valve Status: Chronic Assessment and plan: SEE LIST IN PLAN OF CARE BELOW Current Visit: No (7) Hypertension Status: Chronic Current Visit: No (8) Chronic anticoagulation Status: Chronic Current Visit: No History of Present Illness - Data of Consult Patient: known to practice within the last 3 years Consult date: 02/19/17 Requesting Physician: Ravindra Alcazar - Consult Narrative Reason for consult: Known CAD, left mastectomy History of present illness: 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 Gant Ms. Yañez is a 66 BF, is a known patient of Dr. Gant. Patient has a significant cardiac history of the following: DM type II, hypertension, CAD, coronary artery stent placement, coronary artery bypass graft, dyslipidemia, obesity, mechanical mitral valve replacement, chronic anticoagulation, iron deficiency anemia, chronic renal insufficiency, smoker, chronic angina. The patient is being admitted today prior to a left mastectomy scheduled for 2016. The patient previously had an abnormal mammogram with the biopsy positive for invasive ductal carcinoma. The patient last saw Dr. Gant in the clinic on February 10, 2017 and given a preoperative cardiac clearance. Labs reviewed today: WBC 10.3, hemoglobin and hematocrit 9.3 and 29.9, INR 1.3 PT 14.3, creatinine 1.7, BUN 24, glucose 151, electrolytes WNL. Most current blood pressure was 157/74, heart rate 71. EKG shows sinus rhythm with ST deviation and moderate T-wave abnormality. Echo performed 12/13/2016 revealed mild left ventricular hypertrophy, currently decreased left ventricular systolic function with left ventricular EF 30%. Moderate tricuspid valve regurgitation, PAP of 46 mmHg. Most recent LHC done 03/20/2014 resulted in PTCA of the distal anastomosis of the right coronary graft, stenting of the diagonal graft in 2 places, severe diffuse [place] multivessel coronary disease, and a patent СВЕТЛАНА graft with good distal flow of the LAD. Apparently, the patient stopped her Coumadin 4 days ago and has a mechanical mitral valve replacement. INR is subtherapeutic 1.3, patient is on heparin drip per attending physician. We will need to start the patient on IV heparin tomorrow postoperatively, as well as restart her Coumadin despite her risk for bleeding post surgery. The patient does report one episode of midsternal angina today while lying in bed. She does report that she has chronic angina in the episode quickly resolved. She is anxiously awaiting surgery tomorrow. ASSESSMENT/PLAN: 1. Left breast malignancy - plan for mastectomy 2. Known CAD (previous coronary artery bypass graft and stent placement) - continue home medication and monitor closely. 3. Hypertension -continue antihypertensives, monitor and treat accordingly throughout her hospital stay. 4. Iron deficiency anemia -monitor hemoglobin and hematocrit postoperatively and through hospital stay. 5. Tobacco abuse -the merits of smoking cessation have been discussed and encouraged with the patient. 6. Mechanical mitral valve replacement -restart IV heparin and Coumadin postoperatively. 7. Diabetes type 2 -continue Accu-Cheks and sliding scale with regular insulin. CC: Ravindra Alcazar MD - Home Medications and Allergies Home Medications: Home Medications Medication Instructions Recorded Confirmed Type Carvedilol [Coreg] 25 mg PO BID 12/13/16 02/19/17 History Ferrous Sulfate Tab [Feosol 325 mg PO QOTHER DAY 12/13/16 02/19/17 History Original Tab] Isosorbide Mononitrate [Isosorbide 60 mg PO DAILY 12/13/16 02/19/17 History Mononitrate ER] Amitriptyline [Elavil] 25 mg PO DAILY 02/02/17 02/19/17 History chlordiazePOXIDE [Librium] 10 mg PO DAILY 02/02/17 02/19/17 History hydrALAZINE TAB [Apresoline Tab] 25 mg PO BID 02/02/17 02/19/17 History Albuterol/Ipratropium Neb [Duoneb] 3 ml RESP TX TID 02/19/17 02/19/17 History Amlodipine Besylate 5 mg PO DAILY 02/19/17 02/19/17 History Furosemide Tab [Lasix Tab] 40 mg PO DAILY 02/19/17 02/19/17 History Pantoprazole Tab [Protonix Tab] 40 mg PO DAILY 02/19/17 02/19/17 History Potassium Chloride 10 meq PO TID W/MEALS 02/19/17 02/19/17 History Warfarin [Coumadin] 1 mg PO DAILY@1800 02/19/17 02/19/17 History sitaGLIPtin [Januvia] 25 mg PO DAILY 02/19/17 02/19/17 History Allergies/Adverse Reactions: Allergies Allergy/AdvReac Type Severity Reaction Status Date / Time No Known Allergies Allergy Verified 12/13/16 11:50 - Constitutional Constitutional: Present: fatigue - Cardiovascular Cardiovascular: Present: chest pain at rest, dyspnea on exertion, edema - Respiratory Respiratory: Present: dyspnea, dyspnea on exertion - Gastrointestinal Gastrointestinal: Absent: abdominal pain, melena - Genitourinary Genitourinary: Absent: difficulty urinating - Neurological Neurological: Absent: confusion - Endocrine Endocrine: Present: fatigue - Hematologic/Lymphatic Hematologic/Lymphatic: Present: easy bruising Medical,Surgical,& Family Hx - Medical History Cardio: History of: CAD (s/p CABG), Hypertension, [place], Valvular Heart Disease (S/ p mechanical valve replacement), Cardiovascular Problems No history of: Aneurysm, Cardiac Dysrhythmia, Cerebrovascular Disease, Congenital Heart Disease, CHF, Pacemaker, PVD Psychological: History of: Depression No history of: Anxiety Disorders, ADHD, Behavior Problems, Bipolar Disorder, Previous Suicide Attempt, Psychiatric/Substance Abuse Tx, Schizophrenia, Violent Behavior, Psychiatric Problems Neurology: History of: TIA No history of: Brain Aneurysm, Cerebral Hemorrhage, Cerebrovascular Accident , Cerebral Palsy, Dementia, Migraine, Multiple Sclerosis, Parkinson's Disease, Peripheral Neuropathy, Seizures, Vertigo, Neurologocal Cancer HEENT: History of: Eye Problem (NEAR SIGHTED FAR SIGHTED) No history of: Ear Problem, Dental Problems, Glaucoma, Oral Cancer, HEENT Problems Endocrine: History of: Diabetes Mellitus (NIDDM), Thyroid Disorder No history of: Adrenal Disease, Diabetes Mellitus (IDDM), Endocrine Cancer, Endocrine Problems Rheumatology: No history of;: Fibromyalgia, Gout, Myasthenia Gravis, Psoriasis, Rheumatoid Arthritis, Sjogrens, Systemic Lupus Erythematosus, Rheumatological Problems Respiratory: No history of: Asthma, Bronchitis, COPD, Intubation, Obstructive Sleep Apnea (STATES THAT SHE WAS TESTED AT [facility] AND DOESNT HAVE DALLIN), Pulmonary Embolism, Pulmonary Hypertension, Pneumonia, Lung Cancer, Respiratory Problems Renal: History of: Renal Failure, Renal Problems (CKI) No history of: Renal (Kidney) Cancer, Dialysis Genitourinary: History of: Kidney Stones No history of: Bladder Problem, Recurring Urinary Tract Infections, Genitourinary Cancer, Problems Gastrointestinal: History of: Diverticulitis/ Diverticulosis (left-sided diverticulosis), GERD, Gastrointestinal Bleed (multiple small bowel AVMs, or mild gastritis), Polyps (sigmoid hyperplastic polyps), GI Problems No history of: Bowel Obstruction, Clostridium Difficile, Crohn's Disease, Esophageal Varices, Hemorrhoids, Hematochezia, Hepatitis, Liver Problems, Pancreatitis, Ulcerative Colitis, Gastrointestinal Cancer Musculoskeletal: No history of: Amputation, Back/Neck Problems, Degenerative Disk Disease, Herniated Disk, Osteoporosis, Musculoskeletal Cancer, Musculoskeletal Problems Hematology: History of: Anemia No history of: Blood Transfusion Reaction, Bleeding Problems, Clotting Problems, Sickle Cell Disease, Hematologic Cancer, Blood Disorders Reproductive: History of: Reproductive Problems No history of: Abnormal Pap Smear, Breast Cancer, Endometriosis, Ectopic , Ovarian Cysts, Complication, Sexually Transmitted Disorders , Reproductive Cancer Other: No history of: Anesthesia Reactions, Anaphylaxis, Cancer, Eczema, HIV, Malignant Hyperthermia, MRSA, Vancomycin-Resistant Enterococci, Skin Problems, Miscellaneous Medical Problems - Surgical History Cardiac Surgeries: Sugical HX of: Cardiac Catheterization (with stents), Cardiac Surgery (bypass) Patient Denies: Femoral-Popliteal Bypass Graft, Carotid Endarterectomy, Internal Defibrillator, Vascular Access Devices Thoracic Surgeries: Patient denies;: Kidney (Renal Surgery), Lithotripsy, Nephrectomy, Organ Transplant, Lobectomy Neurologic Surgeries: Patient denies: Brain Aneurysm, Cerebral Hemorrhage, Neurologic Surgery HEENT Surgeries: Patient denies: Carotid Endarterectomy, Eye Surgery, Thyroid Surgery, Tonsilectomy & Adenoidectomy Abdominal Surgeries: Surgical HX of: Colonoscopy, EGD Patient denies: Abdominal Surgery, Appendectomy, Cholecystectomy, Gastric Bypass Surgery, Hernia Repair, Splenectomy Reproductive Surgeries: Surgical HX of;: Gynecologic Surgery, Hysterectomy Patient denies;: Breast Surgery, Section, Cystoscopy, Dilation and Curettage, Genitourinary Surgery, Tubal Ligation Orthopedic Surgeries: Patient denies;: Implanted Devices, Orthopedic Surgery, Spinal Surgery, Total Hip Replacement, Total Knee Replacement - Family History Family History: Reports;: Family Cancer (MOTHER CERVICAL), Family Stroke (FATHER ) Denies;: Family Anesthesia Reaction, Family Diabetes, Family Heart Disease, Family Hypertension, Family Psychiatric Problems - Social History Smoking Status: Current every day smoker Frequency of Alcohol Use: None Type of Drug Use: None Physical Examination Vital Signs Temp Pulse Resp BP Pulse Ox 98 F 83 16 170/76 91 L 02/19/17 10:00 02/19/17 10:00 02/19/17 10:00 02/19/17 10:02/19/17 10:00 Exam: General: [Appears well with no apparent distress.] [Pleasant and cooperative. ] [Appears comfortable.] HEENT: [PERRL, normocephalic, atraumatic]. [Mucous membranes moist.] [No jaundice noted.] [Conjunctiva moist and clear, sclerae anicteric.] Neck: [No JVD/HJR, no thyromegaly or lymphadenopathy noted.] [ ] Cardiac: [Regular rate and rhythm.] [No murmur rub or gallop.] [PMI is nondisplaced.] Lungs: [Mild wheezing to auscultation without accessory muscle use to assist the respiratory pattern.] [Oxygen in use via nasal cannula.] Abdomen: [Soft, bowel sounds normoactive.] [Nontender and nondistended.] [] [ No masses noted.] Musculoskeletal: [No fluid collection.] [Normal range of motion is noted.] Extremities: [No clubbing, cyanosis noted.] [Bilateral lower extremity edema noted] [Upper extremity pulses 2+.] [Lower extremity pulses 2+.] [Capillary refill less than 3 seconds.] Skin: [No unusual lesions or rashes.] [No skin breakdown appreciated.] Neuro: [Awake, alert and oriented 3.] [Moves all extremities well without hemiparesis or paralysis.] [No essential tremor is appreciated.] General: Present: No Apparent Distress HEENT: Present: Normocephaly Neck: Present: JVD/HJR Cardiac: Present: Regular Rhythm, Other (crisp s1). Absent: Diastolic Murmur Lungs: Present: Rales - Left, No Wheezes Neuro: Absent: Resting Tremor, Essential Tremor Abdomen: Present: Non-Tender. Absent: Soft Extremities: Present: +1 Edema Result/EKG - Labs CBC & BMP: 02/19/17 11:29 02/19/17 11:29 Lab Results: I have reviewed the past 24 hour labs Labs: Laboratory Results - last 24 hr 02/19/17 02/19/17 02/19/17 11:29 11:29 11:29 WBC 7.3 RBC 3.52 L Hgb 9.3 L Hct 29.9 L MCV 84.9 L MCH 26 L MCHC 31.1 L RDW 20.6 H Plt Count 229 MPV 11.3 Neut % (Auto) 79.4 H Lymph % (Auto) 12.3 L [place] % (Auto) 6.5 Eos % (Auto) 0.8 Baso % (Auto) 0.3 Neut # (Auto) 5.8 Lymph # (Auto) 0.9 L [place] # (Auto) 0.5 Eos # (Auto) 0.1 Baso # (Auto) 0.0 Immature Gran % 0.7 Nucleated RBC % 0.0 Immature Gran # 0.05 Nucleated RBCs # 0.00 Immature Plt Fraction 0.0 INR 1.3 PT Patient/Control Mix 14.3 D Circ Anticoag PTT 33.5 Sodium 141 Potassium 4.1 Chloride 101 Carbon Dioxide 35 H Anion Gap 9.1 BUN 24 H Creatinine 1.70 H GFR Calculation 41 BUN/Creatinine Ratio 14.00 Glucose 151 H Calculated Osmolality 287.3 Calcium 9.0 Phosphorus 2.9 Albumin 3.4 - Diagnostic Findings Procedure: Chest x-ray: report reviewed by me - EKG EKG results: interpreted by me, sinus rhythm (ST deviation, T wave abnormality) Zeke James Randall Scott, MD, personally performed the services described in this documentation, ascribed by Bettina Fajardo NP in my presence, and it is both accurate and complete 732 .
[2017-02-19] MEDS: ALBUTEROL/IPRATROPIUM 3 ML NEB RESP TX SCH (19:16)
[2017-02-19] MEDS: hydrALAZINE 25 MG TABLET PO SCH (21:00)
[2017-02-19] MEDS: AMITRIPTYLINE 25 MG TABLET PO SCH (21:00)
[2017-02-19] MEDS: CARVEDILOL 25 MG TABLET PO SCH (21:00)
[2017-02-20] MEDS: ALBUTEROL/IPRATROPIUM 3 ML NEB RESP TX SCH ×3 (06:59→19:05)
[2017-02-20] MEDS ORDERED: METHYLENE BLUE 10 ML VIAL IV ONE (07:22)
[2017-02-20] MEDS: INSULIN REGULAR 100 UNIT/ML SUBCUT SCH ×4 (07:44→20:40)
[2017-02-20] MEDS ORDERED: AMITRIPTYLINE 25 MG TABLET PO SCH (09:00)
[2017-02-20] MEDS ORDERED: DEXTROSE 50% 25 GM/50 ML SYRINGE IV PRN (09:58)
[2017-02-20] MEDS ORDERED: GLUCAGON 1 MG VIAL IM PRN (09:58)
[2017-02-20] MEDS ORDERED: NALOXONE 0.4 MG/ML VIAL IV PRN (10:02)
--- NOTE | 2017-02-20 10:12 | Operative Note ---
Date of procedure: 02/20/17 Pre-op diagnosis: Breast cancer left breast Post-op diagnosis: same (With lymph node metastasis) Procedure: [place] node dissection, left axilla Left modified radical mastectomy Procedure detail patient was brought to the operating room and placed in supine position. General endotracheal anesthesia was administered. The the left breast and axilla were prepped and draped in standard sterile fashion. Preoperative lymphoscintigraphy had been performed the day before. Injection of methylene blue was performed after anesthesia was established and prepped and draped in Betadine. The Princess counter was used to identify the area of maximum activity. Following this, incision was performed, and dissection was performed down to the level of hyperactivity. A blue lymphatic was noted entering a rather large node. This was dissected out using clips for lymphatics and hemostasis. This node was sent for frozen sectioning. Following this 2 additional sentinel nodes were identified and dissected out. The pathologist called with a positive result on the sentinel node, and further attempts at identification of sentinel nodes were abandoned. Decision was made to perform a modified radical mastectomy. An ellipse of skin was then excised, centered around the areola complex. Superior and inferior flaps were created in routine fashion. Cautery was used to develop flaps and provide for hemostasis where necessary. Once the flaps were created, the breast was removed from the pectoralis muscles using cautery to include the pectoralis fascia. The axilla was then approached, and vessels were managed with clips and suture ligatures. The long thoracic and thoracodorsal nerves were identified and avoided. Axillary contents were swept down and hemostasis was maintained with cautery and clips. The sensory nerves crossing the axillary space were sacrificed where they could not be preserved. Once the specimen was removed, the axilla was irrigated with sterile water. SAURAV drains were inserted through separate stab incisions and secured with nylon sutures. One drain tip was directed to the axilla, one beneath the breast flap. Closure was then achieved using interrupted Vicryl to reapproximate the deep soft tissue and deep dermis. Skin was then reapproximated with Enzorb and Steri-Strips. Sterile dressings were applied, and the patient was white from anesthesia in stable condition. Anesthesia: GETA Surgeon / Physician: Ravindra Alcazar Estimated blood loss: other (50cc) Specimens: other ([place] nodes 1 and 2 were sent for frozen section, but sentinel node to was not frozen as #1 returned positive. [place] node #3 was sent for permanent specimen for is modified radical mastectomy (left breast and axillary tail with axillary contents)) Condition: stable Results - Labs CBC & BMP: 02/19/17 11:29 02/19/17 11:29 Discharge Plan - Discharge Medications No Action Isosorbide Mononitrate [Isosorbide Mononitrate ER] 60 mg PO DAILY Ferrous Sulfate Tab [Feosol Original Tab] 325 mg PO QOTHER DAY Carvedilol [Coreg] 25 mg PO BID Amitriptyline [Elavil] 25 mg PO DAILY chlordiazePOXIDE [Librium] 10 mg PO DAILY hydrALAZINE TAB [Apresoline Tab] 25 mg PO BID sitaGLIPtin [Januvia] 25 mg PO DAILY Pantoprazole Tab [Protonix Tab] 40 mg PO DAILY Albuterol/Ipratropium Neb [Duoneb] 3 ml RESP TX TID Potassium Chloride 10 meq PO TID W/MEALS Warfarin [Coumadin] 1 mg PO DAILY@1800 Amlodipine Besylate 5 mg PO DAILY Furosemide Tab [Lasix Tab] 40 mg PO DAILY - Follow Up or Referral - Forms/Instructions
[2017-02-20] MEDS ORDERED: MIDAZOLAM 2 MG/2 ML VIAL ONE (10:53)
[2017-02-20] MEDS ORDERED: ROCURONIUM 100 MG/10 ML VIAL IV ONE (10:54)
[2017-02-20] MEDS ORDERED: NEOSTIGMINE 10 MG/10 ML VIAL ONE (10:54)
[2017-02-20] MEDS ORDERED: ETOMIDATE 20 MG/10 ML VIAL IV ONE (10:54)
[2017-02-20] MEDS ORDERED: ONDANSETRON 4 MG/2 ML VIAL ONE (10:54)
[2017-02-20] MEDS ORDERED: GLYCOPYRROLATE 0.4 MG/2 ML VIAL ONE (10:54)
[2017-02-20] MEDS ORDERED: ePHEDrine 50 MG/ML AMP ONE (10:54)
[2017-02-20] MEDS ORDERED: fentaNYL 100 MCG/2 ML VIAL ONE (10:54)
[2017-02-20 11:16] LABS: ABG Base Excess 6.9 MMOL/L (-2.5-2.5); ABG HCO3 30.8 MMOL/L (20-26); ABG Oxygen Saturation 98.9 % (95-100); ABG PH 7.298 (7.35-7.45); ABG TCO2 33.1 MMOL/L (23-27)
[2017-02-20 11:18] LABS: ABG PCO2 72.1 MM HG (35-48)
--- NOTE | 2017-02-20 11:23 | XRay Report ---
XR chest 1V portable Indication: Pneumonia Comparison: Chest x-ray dated February 02, 2017 Technique: Single frontal view of the chest. Findings: Continued marked cardiomegaly status post sternotomy. Hazy bilateral pulmonary opacification noted suspicious for pulmonary edema or pneumonia. Small bilateral pleural fluid suspected. Visualized osseous and surrounding soft tissue structures appear grossly unchanged. IMPRESSION: As above. PROCEDURE INTERPRETED AT [facility] DEPARTMENT OF RADIOLOGY Final Report Signed by: Dr Salazar Anderson
--- NOTE | 2017-02-20 11:35 | Anesthesia Post-Op ---
Anesthesia Post OP - Post Ansesthetic Evaluation Patient seen in post op: Yes Resp: within normal limits (going to ICU for post-op resp monitoring) CV: within normal limits Mental: within normal limits Temp: within normal limits [id number]: within normal limits Nausea and Vomiting: within normal limits Pain: within normal limits
[2017-02-20] MEDS: POTASSIUM CHLORIDE 10 MEQ TABLET PO SCH ×3 (12:17→18:00)
[2017-02-20] MEDS: FUROSEMIDE 80 MG TABLET PO SCH (12:18)
[2017-02-20] MEDS: chlordiazePOXIDE 10 MG CAPSULE PO SCH (12:18)
[2017-02-20] MEDS: hydrALAZINE 25 MG TABLET PO SCH ×2 (12:18→20:15)
[2017-02-20] MEDS: amLODIPine 5 MG TABLET PO SCH ×2 (12:18→14:00)
[2017-02-20] MEDS: ISOSORBIDE MONONITRATE 60 MG TABLET PO SCH ×2 (12:18→14:01)
[2017-02-20] MEDS: PANTOPRAZOLE 40 MG TABLET PO SCH (12:18)
[2017-02-20] MEDS: CARVEDILOL 25 MG TABLET PO SCH ×2 (12:18→20:15)
[2017-02-20] MEDS: MORPHINE PCA 150 MG/30 ML SYRINGE IV SCH ×2 (12:19→14:22)
[2017-02-20] MEDS: HEPARIN DRIP 25,000 UNITS/500 ML PREMIX IV SCH (13:04)
--- NOTE | 2017-02-20 14:16 | EKG Report ---
Stationary ECG Study [facility] Test Date: 02/20/2017 2:17:11 PM Pat Name: SHIN WEI Department: Room: 112 Gender: F Donor Specialist: : [id number] Requested by: Henrik Gant Order Number: [id number] Reading MD: JAIRO BESS Intervals [place] Rate: 101 P: 87 WV: 163 QRS: 30 QRSD: 126 T: 205 QT: 372 QTc: 430 Interpretive Statements SINUS TACHYCARDIA WITH OCCASIONAL ECTOPIC PREMATURE COMPLEXES POSSIBLE LEFT ATRIAL ENLARGEMENT POSSIBLE ANTERIOR MYOCARDIAL INFARCTION, OF INDETERMINATE AGE MODERATE T-WAVE ABNORMALITY, CONSIDER LATERAL ISCHEMIA MODERATE T-WAVE ABNORMALITY, CONSIDER INFERIOR ISCHEMIA Electronically Signed On 02-20-17 18:20:49 CDT by JAIRO BESS [email or web address]
--- NOTE | 2017-02-20 14:31 | General Surgery Progress Note ---
Assessment and Plan - Time spent with patient Time spent discussing smoking cessation with patient: 3 to 10 minutes (continue postop care; stop heparin gtt, if ok with Cardiology....vee drains sanguinous) Subjective Patient reports: Present: other (surgical incisional/regional pain. Breathing ok now, but placed in ICU postop, due to respiratory distress, hypoventilation) Exam - Constitutional Vitals: Period Temp Pulse Resp BP Sys/Eli Pulse Ox Last 24 Hr 96.3 F-97.9 F 69-103 - 110-200/67-98 90-100 General appearance: morbidly obese - Respiratory Respiratory exam: Present: clear to auscultation bilaterally - Cardiovascular Cardiovascular exam: Present: RRR - Breasts Breasts: other (drains slightly sanguinous in appearance) Results - Labs CBC & BMP: 02/19/17 11:29 02/19/17 11:29
--- NOTE | 2017-02-20 16:39 | Cardiology Progress Note ---
Erika, Bettina Fajardo, THERESA, am scribing for, and in the presence of, Peter Alanis MD 16:36. Assessment and Plan (1) Breast cancer Status: Acute Assessment and plan: SEE LIST IN PLAN OF CARE BELOW Initial assessment: 1. 66-year-old BMI 37.5 BF with multiple medical problems including hypertension, diabetes, CAD status post CABG/mechanical mitral valve replacement at least 7 years ago with severe ischemic cardiomyopathy (recently EF 20% with normally functioning mechanical mitral valve.), history of multiple GI bleeds, diagnosed with breast cancer for mastectomy in the morning. 2. She is obvious significant risk, but this is not elective surgery. Her Coumadin has been held several days with INR 1.3 but is now on heparin infusion on protocol. Resume heparin after surgery, his status surgery believes this can be done with a reasonable amount of safety. 3. Appears to have CKD with creatinine below 2 but previous history of acute renal failure with dialysis in the past. 4. Give IV Lasix 1 given her neck veins were elevated and she has a few crackles in her left base 5. Status post vein graft stents to RCA anastomosis and diagonal anastomosis [place] [address] Gant who is her primary grubber. 6. We will follow closely with you. February 20, 2017: 1. Ms. Yañez is alert and oriented hemodynamically stable postmastectomy this morning although she has slight tachycardia 2. Continue Coreg and Lasix as needed, would add low-dose captopril given her slight hypertension and severe ischemic cardiomyopathy 3. High intensity statin therapy 4. Storey mechanical mitral valve sound on examination is encouraging. 5. Heparin being held until morning; this is reasonable if needed to avoid significant bleeding, as giving blood products would be a negative unless absolutely necessary. 6. Start low-dose Coumadin tonight 1 mg every afternoon 7. We will follow with you Current Visit: Yes Qualifiers: Patient sex: female Laterality: left (2) Anemia Status: Chronic Assessment and plan: SEE LIST IN PLAN OF CARE BELOW Current Visit: No (3) CKD (chronic kidney disease) stage 2, GFR 60-89 ml/min Status: Chronic Assessment and plan: SEE LIST IN PLAN OF CARE BELOW Current Visit: No (4) Congestive heart failure Status: Chronic Assessment and plan: SEE LIST IN PLAN OF CARE BELOW Current Visit: No (5) Coronary artery disease Status: Chronic Assessment and plan: SEE LIST IN PLAN OF CARE BELOW Current Visit: No (6) History of heart valve replacement with mechanical valve Status: Chronic Assessment and plan: SEE LIST IN PLAN OF CARE BELOW Current Visit: No (7) Hypertension Status: Chronic Current Visit: No (8) Chronic anticoagulation Status: Chronic Current Visit: No Cardiology - PN: Subj Interval history: CHIEF COMMERCIAL OFFICER: Dr. Gant Ms. Yañez is a 66 BF, is a known patient of Dr. Gant. Patient has a significant cardiac history of the following: DM type II, hypertension, CAD, coronary artery stent placement, coronary artery bypass graft, dyslipidemia, obesity, mechanical mitral valve replacement, chronic anticoagulation, iron deficiency anemia, chronic renal insufficiency, smoker, chronic angina. The patient is being admitted today prior to a left mastectomy scheduled for 2016. The patient previously had an abnormal mammogram with the biopsy positive for invasive ductal carcinoma. The patient last saw Dr. Gant in the clinic on February 10, 2017 and given a preoperative cardiac clearance. Labs reviewed today: WBC 10.3, hemoglobin and hematocrit 9.3 and 29.9, INR 1.3 PT 14.3, creatinine 1.7, BUN 24, glucose 151, electrolytes WNL. Most current blood pressure was 157/74, heart rate 71. EKG shows sinus rhythm with ST deviation and moderate T-wave abnormality. Echo performed 12/13/2016 revealed mild left ventricular hypertrophy, currently decreased left ventricular systolic function with left ventricular EF 30%. Moderate tricuspid valve regurgitation, PAP of 46 mmHg. Most recent LHC done 03/20/2014 resulted in PTCA of the distal anastomosis of the right coronary graft, stenting of the diagonal graft in 2 places, severe diffuse platinum multivessel coronary disease, and a patent [id number] graft with good distal flow of the LAD. Apparently, the patient stopped her Coumadin 4 days ago and has a mechanical mitral valve replacement. INR is subtherapeutic 1.3, patient is on heparin drip per attending physician. We will need to start the patient on IV heparin tomorrow postoperatively, as well as restart her Coumadin despite her risk for bleeding post surgery. The patient does report one episode of midsternal angina today while lying in bed. She does report that she has chronic angina and the episode quickly resolved. She is anxiously awaiting surgery tomorrow. FEBRUARY 20, 2017: The patient was examined today in ICU. She was transferred to ICU postoperatively to monitor respiratory status. The patient is awake and alert and using BiPAP machine to assist respirations. Current blood pressure is 148/77, heart rate in the 80s, oxygen saturation 97%. Patient complains of only mild soreness to surgical site. Heparin infusion protocol has been restarted postsurgery for mechanical mitral valve. Dressing is intact to left chest wall, no bleeding noted. Will continue to follow closely due to multiple comorbidities. Will discuss this case with Dr. Alanis and await further recommendations. ASSESSMENT/PLAN: 1. Left breast malignancy -status post left mastectomy 2. Known CAD (previous coronary artery bypass graft and stent placement) - continue home medication and monitor closely. 3. Hypertension -continue antihypertensives, monitor and treat accordingly throughout hospital stay. 4. Iron deficiency anemia -monitor hemoglobin and hematocrit postoperatively and through hospital stay as pt. will remain on anticoagulant. 5. Tobacco abuse -the merits of smoking cessation have been discussed and encouraged with the patient. 6. Mechanical mitral valve replacement -restart IV heparin and Coumadin postoperatively. 7. Diabetes type 2 -continue Accu-Cheks and sliding scale with regular insulin. 8 Ischemic Cardiomyopathy -EF 20%, continue current plan of care. 9. CHF -continue BiPAP, continue Lasix. Exam (Progress Note) - Constitutional Vitals: Period Temp Pulse Resp BP Sys/Eli Pulse Ox Last 24 Hr 96.3 F-97.9 F 69-103 10-26 110-200/67-98 90-100 General appearance: no acute distress, over weight Exam: General: Patient using BiPAP with no apparent distress. Pleasant and cooperative. Appears comfortable. HEENT: PERRL, normocephalic, atraumatic. Mucous membranes moist. No jaundice noted. Conjunctiva moist and clear, sclerae anicteric. Neck: No JVD/HJR, no thyromegaly or lymphadenopathy noted. Cardiac: Regular rate and rhythm, click auscultated. No murmur rub or gallop. PMI is nondisplaced. Lungs: Essentially clear to auscultation without accessory muscle use to assist the respiratory pattern. BiPAP mask in use.] Abdomen: Soft, bowel sounds normoactive. Nontender and nondistended. No abdominal bruit or thrill noted. No masses noted. Musculoskeletal: No fluid collection. Normal range of motion is noted while lying in bed.] Extremities: No clubbing, cyanosis noted. Bilateral lower extremity edema noted. Upper extremity pulses 2+. Lower extremity pulses 2+. Capillary refill less than 3 seconds. Skin: No unusual lesions or rashes. No skin breakdown appreciated. Neuro: Awake, alert and oriented 3. Moves all extremities well without hemiparesis or paralysis. No essential tremor is appreciated. - Head Head exam: Present: normal inspection, normocephalic, atraumatic - Neck Neck exam: Present: normal inspection - Respiratory Respiratory exam: Present: rales. Absent: rhonchi, stridor, wheezes - Cardiovascular Cardiovascular exam: Present: systolic murmur, tachycardia. Absent: diastolic murmur, rubs - GI/Abdominal GI/Abdominal exam: Present: soft. Absent: tenderness - Extremities Exam Extremities exam: Present: edema Result/EKG - Labs CBC & BMP: 02/19/17 11:29 02/19/17 11:29 Lab Results: I have reviewed the past 24 hour labs Labs: Laboratory Results - last 24 hr 02/19/17 02/19/17 02/19/17 15:51 19:28 21:53 Circ Anticoag PTT 49.7 H D ABG pH ABG pCO2 ABG pO2 ABG HCO3 ABG Total CO2 ABG O2 Saturation ABG Base Excess POC Glucose 157 H 186 H Blood Type Antibody Screen 02/20/17 02/20/17 02/20/17 03:08 07:16 11:07 Circ Anticoag PTT 55.7 H ABG pH 7.298 L ABG pCO2 72.1 H* ABG pO2 137.0 H ABG HCO3 30.8 H ABG Total CO2 33.1 H ABG O2 Saturation 98.9 ABG Base Excess 6.9 H POC Glucose Blood Type A POSITIVE Antibody Screen Negative 02/20/17 02/20/17 12:01 13:25 Circ Anticoag PTT ABG pH ABG pCO2 ABG pO2 ABG HCO3 ABG Total CO2 ABG O2 Saturation ABG Base Excess POC Glucose 173 H 160 H Blood Type Antibody Screen - Diagnostic Findings Procedure: Chest x-ray: report reviewed by me - EKG EKG results: interpreted by me, sinus rhythm I, Peter Alanis MD, personally performed the services described in this documentation, ascribed by Vincent,Bettina, MANAGING EDITOR in my presence, and it is both accurate and complete 639 .
[2017-02-20] MEDS: WARFARIN 1 MG TABLET PO SCH (18:00)
[2017-02-20] MEDS: ATORVASTATIN 80 MG TABLET PO SCH (18:00)
[2017-02-20] MEDS: AMITRIPTYLINE 25 MG TABLET PO SCH (20:15)
[2017-02-20] MEDS: CAPTOPRIL 6.25 MG TABLET PO SCH (20:15)
[2017-02-21 05:06] LABS: Basophils % 0.3 % (0.0-0.8); Eosinophils # 0.1 10*3/uL (0.0-0.87); Eosinophils % 1.4 % (0.00-10.9); Hematocrit 28.5 VOL% (35.7-47.0); Hemoglobin 8.4 GM/DL (12.0-16.0); Immature Granulocytes % 0.6 %; Immature Granulocytes Absolute 0.06 #; Lymphocytes # 0.9 10*3/uL (1.4-4.0); Mean Corpuscular HGB Conc 29.5 GM/DL (32-36); Mean Corpuscular Hemoglobin 26 PG (27-34); Mean Corpuscular Volume 88.5 FL (87-102); Mean Platelet Volume 11.4 FL (9.6-12.0); Monocytes # 0.7 10*3/uL (0.11-0.8); Monocytes % 6.9 % (1.7-12.7); Neutrophils % 81.8 % (38.7-73.9); Platelet Count 252 T/CUMM (130-400); Red Blood Count 3.22 MC/CUMM (3.8-5.5); Red Cell Distribution Width 20.1 % (9.3-17.3); White Blood Count 9.8 T/CUMM (4-12)
[2017-02-21 05:35] LABS: Calcium 8.3 MG/DL (8.5-10.1); Magnesium 1.8 MG/DL (1.8-2.4); Osmolality,Calculated 279.4 MOS/KG (273-304)
[2017-02-21 05:39] LABS: Albumin 2.8 G/DL (3.4-5.0); Bilirubin,Total 0.5 MG/DL (0.2-1.0); Calcium 8.1 MG/DL (8.5-10.1); Osmolality,Calculated 283.1 MOS/KG (273-304); Potassium 4.1 MMOL/L (3.5-5.1); Total Protein 6.2 G/DL (6.4-8.3)
[2017-02-21 06:20] LABS: INR 1.2; PT Patient Result 13.3 SECS
--- NOTE | 2017-02-21 06:51 | Cardiology Progress Note ---
<Adelaida Garzon E - Last Filed: 02/21/17 06:42> Assessment and Plan - Time spent with patient Time spent with patient: Greater than 30 minutes Time spent discussing smoking cessation with patient: 3 to 10 minutes (1) History of heart valve replacement with mechanical valve Status: Chronic Assessment and plan: SEE PLAN OF CARE LISTED BELOW Current Visit: No (2) Diabetes Status: Chronic Assessment and plan: SEE PLAN OF CARE LISTED BELOW Current Visit: No Qualifiers: Diabetes mellitus type: type 2 Diabetes mellitus complication status: without complication Qualified Code(s): E11.9 - Type 2 diabetes mellitus without complications (3) Iron deficiency anemia Problem details: The patient has small bowel AVMs-- these could be treated if the patient was kept off her anticoagulation briefly by double balloon endoscopy done either [facility] or [facility]. This would have to be done as an outpatient at some point, in between transfusions, off of anticoagulation completely for a chance of success, or at least decreased transfusion requirements. Further evaluation with endoscopic procedures is not going to be required at this time. Status: Acute Assessment and plan: SEE PLAN OF CARE LISTED BELOW Current Visit: No (4) Chronic anticoagulation Status: Chronic Assessment and plan: SEE PLAN OF CARE LISTED BELOW Current Visit: No (5) Coronary artery disease Status: Chronic Current Visit: No (6) Chronic anticoagulation Status: Chronic Assessment and plan: SEE PLAN OF CARE LISTED BELOW Current Visit: No (7) Acute combined systolic and diastolic CHF, NYHA class 3 Status: Acute Assessment and plan: SEE PLAN OF CARE LISTED BELOW Current Visit: No (8) Hypertension Status: Chronic Assessment and plan: SEE PLAN OF CARE LISTED BELOW Current Visit: No (9) Breast cancer Status: Acute Assessment and plan: SEE PLAN OF CARE LISTED BELOW Current Visit: Yes Qualifiers: Patient sex: female Laterality: left Cardiology - PN: Subj Interval history: COMPUTER SUPPORT SPECIALIST INSTRUCTOR: DR. 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 Yañez is a 66 BF, with a history of DM type II, hypertension , CAD status post CABG, stent placement, dyslipidemia obesity, MECHANICAL MITRAL VALVE REPLACEMENT, chronic anticoagulation, iron deficiency anemia, chronic renal insufficiency, smoker, chronic angina. Admitted February 19, 2017 for elective mastectomy March 23, 2017. Underwent left modified radical mastectomy with sentinel node dissection of the left axilla. Tolerated procedure well. FEBRUARY 20, 2017: The patient was examined today in ICU. She was transferred to ICU postoperatively to monitor respiratory status. The patient is awake and alert and using BiPAP machine to assist respirations. Current blood pressure is 148/77, heart rate in the 80s, oxygen saturation 97%. Patient complains of only mild soreness to surgical site. Heparin infusion protocol has been restarted postsurgery for mechanical mitral valve. Dressing is intact to left chest wall, no bleeding noted. Will continue to follow closely due to multiple comorbidities. Will discuss this case with Dr. Alanis and await further recommendations. FEBRUARY 21, 2017: Overnight, patient has done well. Complaints of general soreness. IV heparin was held until this morning due to significant bleeding from surgical site. This morning, she is anemic, stable. Will continue to follow her labs closely. Coumadin was restarted last evening. Vital signs are stable postoperatively. Will further discuss with Dr. Alanis and await additional recommendations. ASSESSMENT/PLAN: 1. LEFT BREAST MALIGNANCY - status post left mastectomy 2. KNOWN CAD (previous CABG and stent placement) - continue home medication and monitor closely. 3. HYPERTENSION - continue beta-sharona, PRINCESS inhibitor. Adjust medications accordingly during the hospital stay. 4. IRON DEFICIENCY ANEMIA - Heparin has been restarted. Monitor hemoglobin hematocrit closely. Warfarin has also been restarted. INR in the morning. 5. TOBACCO ABUSE - the merits of smoking cessation have been discussed greater than 5 minutes. 6. MECHANICAL MITRAL VALVE REPLACEMENT - restarted IV heparin this morning, Coumadin last evening. 7. DIABETES TYPE 2 - continue Accu-Cheks, sliding scale. 8 ISCHEMIC CARDIOMYOPATHY - EF 20%, continue current plan of care. 9. CHF - Acute on chronic CHF secondary to systolic dysfunction (EF 20%) and diastolic dysfunction, NYHA Class II-III. Exam (Progress Note) - Constitutional Vitals: Period Temp Pulse Resp BP Sys/Eli Pulse Ox Last 24 Hr 97 F-99.0 F 78-109 10-26 97-160/47-90 90-100 Exam: General: [Appears well with no apparent distress.] [Pleasant and cooperative. ] [Appears comfortable.] HEENT: [PERRL, normocephalic, atraumatic. Mucous membranes moist. No jaundice noted. Conjunctiva moist and clear, sclerae anicteric] Neck: No obvious JVD/HJR, no thyromegaly or lymphadenopathy noted. No carotid bruit appreciated Cardiac: [Regular rate and rhythm.] [No murmur rub or gallop. Click of mechanical valve auscultated] with dressing left chest intact Lungs: [Clear to auscultation without accessory muscle use to assist the respiratory pattern.] Oxygen in use via nasal cannula Abdomen: Soft, bowel sounds normoactive. Nontender and nondistended. No abdominal bruit or thrill noted. No masses noted. Musculoskeletal: No fluid collection. Decreased range of motion is noted. Extremities: No clubbing, cyanosis noted. [ No edema noted.] Upper extremity pulses 2+. Lower extremity pulses 2+. Capillary refill less than 3 seconds. Skin: No unusual lesions or rashes. No skin breakdown appreciated. Neuro: Awake, alert and oriented 3. Moves all extremities well without hemiparesis or paralysis. No essential tremor is appreciated. Result/EKG - Labs CBC & BMP: 02/21/17 04:37 02/21/17 04:37 Lab Results: I have reviewed the past 24 hour labs Labs: Laboratory Results - last 24 hr 02/20/17 02/20/17 02/20/17 07:16 11:07 12:01 WBC RBC Hgb Hct MCV MCH MCHC RDW Plt Count MPV Neut % (Auto) Lymph % (Auto) [place] % (Auto) Eos % (Auto) Baso % (Auto) Neut # (Auto) Lymph # (Auto) [place] # (Auto) Eos # (Auto) Baso # (Auto) Immature Gran % Nucleated RBC % Immature Gran # Nucleated RBCs # Immature Plt Fraction INR PT Patient/Control Mix Circ Anticoag PTT ABG pH 7.298 L ABG pCO2 72.1 H* ABG pO2 137.0 H ABG HCO3 30.8 H ABG Total CO2 33.1 H ABG O2 Saturation 98.9 ABG Base Excess 6.9 H Sodium Potassium Chloride Carbon Dioxide Anion Gap BUN Creatinine GFR Calculation BUN/Creatinine Ratio Glucose POC Glucose 173 H Calculated Osmolality Calcium Magnesium Total Bilirubin AST ALT Alkaline Phosphatase Total Protein Albumin Globulin Albumin/Globulin Ratio Blood Type A POSITIVE Antibody Screen Negative 02/20/17 02/20/17 02/20/17 13:25 18:00 18:37 WBC RBC Hgb Hct MCV MCH MCHC RDW Plt Count MPV Neut % (Auto) Lymph % (Auto) [place] % (Auto) Eos % (Auto) Baso % (Auto) Neut # (Auto) Lymph # (Auto) [place] # (Auto) Eos # (Auto) Baso # (Auto) Immature Gran % Nucleated RBC % Immature Gran # Nucleated RBCs # Immature Plt Fraction INR PT Patient/Control Mix Circ Anticoag PTT 32.3 D ABG pH ABG pCO2 ABG pO2 ABG HCO3 ABG Total CO2 ABG O2 Saturation ABG Base Excess Sodium Potassium Chloride Carbon Dioxide Anion Gap BUN Creatinine GFR Calculation BUN/Creatinine Ratio Glucose POC Glucose 160 H 230 H Calculated Osmolality Calcium Magnesium Total Bilirubin AST ALT Alkaline Phosphatase Total Protein Albumin Globulin Albumin/Globulin Ratio Blood Type Antibody Screen 02/20/17 02/21/17 02/21/17 20:11 04:37 04:37 WBC RBC Hgb Hct MCV MCH MCHC RDW Plt Count MPV Neut % (Auto) Lymph % (Auto) [place] % (Auto) Eos % (Auto) Baso % (Auto) Neut # (Auto) Lymph # (Auto) [place] # (Auto) Eos # (Auto) Baso # (Auto) Immature Gran % Nucleated RBC % Immature Gran # Nucleated RBCs # Immature Plt Fraction INR 1.2 PT Patient/Control Mix 13.3 Circ Anticoag PTT 33.6 ABG pH ABG pCO2 ABG pO2 ABG HCO3 ABG Total CO2 ABG O2 Saturation ABG Base Excess Sodium Potassium Chloride Carbon Dioxide Anion Gap BUN Creatinine GFR Calculation BUN/Creatinine Ratio Glucose POC Glucose 196 H Calculated Osmolality Calcium Magnesium Total Bilirubin AST ALT Alkaline Phosphatase Total Protein Albumin Globulin Albumin/Globulin Ratio Blood Type Antibody Screen 02/21/17 02/21/17 02/21/17 04:37 04:37 04:37 WBC 9.8 D RBC 3.22 L Hgb 8.4 L Hct 28.5 L MCV 88.5 MCH 26 L MCHC 29.5 L RDW 20.1 H Plt Count 252 MPV 11.4 Neut % (Auto) 81.8 H Lymph % (Auto) 9.0 L [place] % (Auto) 6.9 Eos % (Auto) 1.4 Baso % (Auto) 0.3 Neut # (Auto) 8.0 H Lymph # (Auto) 0.9 L [place] # (Auto) 0.7 Eos # (Auto) 0.1 Baso # (Auto) 0.0 Immature Gran % 0.6 Nucleated RBC % 0.0 Immature Gran # 0.06 Nucleated RBCs # 0.00 Immature Plt Fraction 0.0 INR PT Patient/Control Mix Circ Anticoag PTT ABG pH ABG pCO2 ABG pO2 ABG HCO3 ABG Total CO2 ABG O2 Saturation ABG Base Excess Sodium 142 140 Potassium 4.1 4.0 Chloride 101 101 Carbon Dioxide 37 H 36 H Anion Gap 8.1 7.0 BUN 22 H 22 H Creatinine 1.70 H 1.70 H GFR Calculation 41 41 BUN/Creatinine Ratio 12.00 12.00 Glucose 55 L 56 L POC Glucose Calculated Osmolality 283.1 279.4 Calcium 8.1 L 8.3 L Magnesium 1.8 Total Bilirubin 0.50 AST 14 ALT 21 Alkaline Phosphatase 91 Total Protein 6.2 L Albumin 2.8 L Globulin 3.4 Albumin/Globulin Ratio 0.8 L Blood Type Antibody Screen 02/21/17 06:34 WBC RBC Hgb Hct MCV MCH MCHC RDW Plt Count MPV Neut % (Auto) Lymph % (Auto) [place] % (Auto) Eos % (Auto) Baso % (Auto) Neut # (Auto) Lymph # (Auto) [place] # (Auto) Eos # (Auto) Baso # (Auto) Immature Gran % Nucleated RBC % Immature Gran # Nucleated RBCs # Immature Plt Fraction INR PT Patient/Control Mix Circ Anticoag PTT ABG pH ABG pCO2 ABG pO2 ABG HCO3 ABG Total CO2 ABG O2 Saturation ABG Base Excess Sodium Potassium Chloride Carbon Dioxide Anion Gap BUN Creatinine GFR Calculation BUN/Creatinine Ratio Glucose POC Glucose 119 H Calculated Osmolality Calcium Magnesium Total Bilirubin AST ALT Alkaline Phosphatase Total Protein Albumin Globulin Albumin/Globulin Ratio Blood Type Antibody Screen - Diagnostic Findings Procedure: Chest x-ray: report reviewed by ny - EKG EKG results: interpreted by ny EKG shows: sinus rhythm <Peter Alanis - Last Filed: 02/21/17 09:25> Assessment and Plan (1) Breast cancer Status: Acute Current Visit: Yes Qualifiers: Patient sex: female Laterality: left (2) Anemia Status: Chronic Current Visit: No (3) CKD (chronic kidney disease) stage 2, GFR 60-89 ml/min Status: Chronic Current Visit: No (4) Congestive heart failure Status: Chronic Current Visit: No (5) Coronary artery disease Status: Chronic Current Visit: No (6) History of heart valve replacement with mechanical valve Status: Chronic Current Visit: No (7) Hypertension Status: Chronic Current Visit: No (8) Chronic anticoagulation Status: Chronic Current Visit: No Exam (Progress Note) - Constitutional Vitals: Period Temp Pulse Resp BP Sys/Eli Pulse Ox Last 24 Hr 97 F-99.0 F 78-109 10-26 97-160/47-90 90-100 Result/EKG - Labs CBC & BMP: 02/21/17 04:37 02/21/17 04:37 Labs: Laboratory Results - last 24 hr 02/20/17 02/20/17 02/20/17 11:07 12:01 13:25 WBC RBC Hgb Hct MCV MCH MCHC RDW Plt Count MPV Neut % (Auto) Lymph % (Auto) [place] % (Auto) Eos % (Auto) Baso % (Auto) Neut # (Auto) Lymph # (Auto) [place] # (Auto) Eos # (Auto) Baso # (Auto) Immature Gran % Nucleated RBC % Immature Gran # Nucleated RBCs # Immature Plt Fraction INR PT Patient/Control Mix Circ Anticoag PTT ABG pH 7.298 L ABG pCO2 72.1 H* ABG pO2 137.0 H ABG HCO3 30.8 H ABG Total CO2 33.1 H ABG O2 Saturation 98.9 ABG Base Excess 6.9 H Sodium Potassium Chloride Carbon Dioxide Anion Gap BUN Creatinine GFR Calculation BUN/Creatinine Ratio Glucose POC Glucose 173 H 160 H Calculated Osmolality Calcium Magnesium Total Bilirubin AST ALT Alkaline Phosphatase Total Protein Albumin Globulin Albumin/Globulin Ratio 02/20/17 02/20/17 02/20/17 18:00 18:37 20:11 WBC RBC Hgb Hct MCV MCH MCHC RDW Plt Count MPV Neut % (Auto) Lymph % (Auto) [place] % (Auto) Eos % (Auto) Baso % (Auto) Neut # (Auto) Lymph # (Auto) [place] # (Auto) Eos # (Auto) Baso # (Auto) Immature Gran % Nucleated RBC % Immature Gran # Nucleated RBCs # Immature Plt Fraction INR PT Patient/Control Mix Circ Anticoag PTT 32.3 D ABG pH ABG pCO2 ABG pO2 ABG HCO3 ABG Total CO2 ABG O2 Saturation ABG Base Excess Sodium Potassium Chloride Carbon Dioxide Anion Gap BUN Creatinine GFR Calculation BUN/Creatinine Ratio Glucose POC Glucose 230 H 196 H Calculated Osmolality Calcium Magnesium Total Bilirubin AST ALT Alkaline Phosphatase Total Protein Albumin Globulin Albumin/Globulin Ratio 08/19/17 08/19/17 08/19/17 04:37 04:37 04:37 WBC RBC Hgb Hct MCV MCH MCHC RDW Plt Count MPV Neut % (Auto) Lymph % (Auto) [place] % (Auto) Eos % (Auto) Baso % (Auto) Neut # (Auto) Lymph # (Auto) [place] # (Auto) Eos # (Auto) Baso # (Auto) Immature Gran % Nucleated RBC % Immature Gran # Nucleated RBCs # Immature Plt Fraction INR 1.2 PT Patient/Control Mix 13.3 Circ Anticoag PTT 33.6 ABG pH ABG pCO2 ABG pO2 ABG HCO3 ABG Total CO2 ABG O2 Saturation ABG Base Excess Sodium 142 Potassium 4.1 Chloride 101 Carbon Dioxide 37 H Anion Gap 8.1 BUN 22 H Creatinine 1.70 H GFR Calculation 41 BUN/Creatinine Ratio 12.00 Glucose 55 L POC Glucose Calculated Osmolality 283.1 Calcium 8.1 L Magnesium Total Bilirubin 0.50 AST 14 ALT 21 Alkaline Phosphatase 91 Total Protein 6.2 L Albumin 2.8 L Globulin 3.4 Albumin/Globulin Ratio 0.8 L 02/21/17 02/21/17 02/21/17 04:37 04:37 06:34 WBC 9.8 D RBC 3.22 L Hgb 8.4 L Hct 28.5 L MCV 88.5 MCH 26 L MCHC 29.5 L RDW 20.1 H Plt Count 252 MPV 11.4 Neut % (Auto) 81.8 H Lymph % (Auto) 9.0 L [place] % (Auto) 6.9 Eos % (Auto) 1.4 Baso % (Auto) 0.3 Neut # (Auto) 8.0 H Lymph # (Auto) 0.9 L [place] # (Auto) 0.7 Eos # (Auto) 0.1 Baso # (Auto) 0.0 Immature Gran % 0.6 Nucleated RBC % 0.0 Immature Gran # 0.06 Nucleated RBCs # 0.00 Immature Plt Fraction 0.0 INR PT Patient/Control Mix Circ Anticoag PTT ABG pH ABG pCO2 ABG pO2 ABG HCO3 ABG Total CO2 ABG O2 Saturation ABG Base Excess Sodium 140 Potassium 4.0 Chloride 101 Carbon Dioxide 36 H Anion Gap 7.0 BUN 22 H Creatinine 1.70 H GFR Calculation 41 BUN/Creatinine Ratio 12.00 Glucose 56 L POC Glucose 119 H Calculated Osmolality 279.4 Calcium 8.3 L Magnesium 1.8 Total Bilirubin AST ALT Alkaline Phosphatase Total Protein Albumin Globulin Albumin/Globulin Ratio 02/21/17 07:40 WBC RBC Hgb Hct MCV MCH MCHC RDW Plt Count MPV Neut % (Auto) Lymph % (Auto) [place] % (Auto) Eos % (Auto) Baso % (Auto) Neut # (Auto) Lymph # (Auto) [place] # (Auto) Eos # (Auto) Baso # (Auto) Immature Gran % Nucleated RBC % Immature Gran # Nucleated RBCs # Immature Plt Fraction INR PT Patient/Control Mix Circ Anticoag PTT ABG pH ABG pCO2 ABG pO2 ABG HCO3 ABG Total CO2 ABG O2 Saturation ABG Base Excess Sodium Potassium Chloride Carbon Dioxide Anion Gap BUN Creatinine GFR Calculation BUN/Creatinine Ratio Glucose POC Glucose 118 H Calculated Osmolality Calcium Magnesium Total Bilirubin AST ALT Alkaline Phosphatase Total Protein Albumin Globulin Albumin/Globulin Ratio
[2017-02-21] MEDS: ALBUTEROL/IPRATROPIUM 3 ML NEB RESP TX SCH ×3 (07:43→18:55)
[2017-02-21] MEDS: INSULIN REGULAR 100 UNIT/ML SUBCUT SCH ×4 (08:50→20:18)
[2017-02-21] MEDS: POTASSIUM CHLORIDE 10 MEQ TABLET PO SCH ×3 (08:59→18:48)
[2017-02-21] MEDS: PANTOPRAZOLE 40 MG TABLET PO SCH (09:00)
[2017-02-21] MEDS: FERROUS SULFATE 325 MG TABLET PO SCH (09:00)
[2017-02-21] MEDS: ATORVASTATIN 80 MG TABLET PO SCH (09:00)
[2017-02-21] MEDS: CARVEDILOL 25 MG TABLET PO SCH ×2 (09:00→20:17)
[2017-02-21] MEDS: hydrALAZINE 25 MG TABLET PO SCH ×2 (09:20→20:17)
[2017-02-21] MEDS: FUROSEMIDE 80 MG TABLET PO SCH (09:20)
[2017-02-21] MEDS: CAPTOPRIL 6.25 MG TABLET PO SCH ×3 (09:20→20:17)
[2017-02-21] MEDS: ISOSORBIDE MONONITRATE 60 MG TABLET PO SCH (09:20)
[2017-02-21] MEDS: amLODIPine 5 MG TABLET PO SCH (09:21)
[2017-02-21] MEDS ORDERED: WARFARIN 1 MG TABLET PO ONE (09:23)
[2017-02-21] MEDS: chlordiazePOXIDE 10 MG CAPSULE PO SCH (09:27)
--- NOTE | 2017-02-21 11:20 | General Surgery Progress Note ---
Assessment and Plan - Time spent with patient Time spent with patient: Less than 30 minutes Time spent discussing smoking cessation with patient: 3 to 10 minutes (Continue heparin drip. Will monitor today in ICU to ensure blood pressure remains stable ; consult oncology once pathology results return) (1) Breast cancer Status: Acute Current Visit: Yes Qualifiers: Patient sex: female Laterality: left Subjective Patient reports: Present: feels better, other (Heparin drip resumed this morning without change in drainage output or character) Exam - Constitutional Vitals: Period Temp Pulse Resp BP Sys/Eli Pulse Ox Last 24 Hr 97 F-99.0 F 78-109 10-26 97-160/47-90 90-100 - Respiratory Respiratory exam: Present: clear to auscultation bilaterally - Cardiovascular Cardiovascular exam: Present: RRR - Breasts Breasts: other (mastectomy site without hematoma; drains serosang, but not much output) Results - Labs CBC & BMP: 02/21/17 04:37 02/21/17 04:37
[2017-02-21] MEDS: MORPHINE PCA 150 MG/30 ML SYRINGE IV SCH (13:50)
[2017-02-21] MEDS: HEPARIN DRIP 25,000 UNITS/500 ML PREMIX IV SCH (16:01)
[2017-02-21] MEDS: WARFARIN 1 MG TABLET PO SCH (18:48)
[2017-02-21] MEDS: AMITRIPTYLINE 25 MG TABLET PO SCH (20:17)
[2017-02-22 06:12] LABS: Basophils % 0.1 % (0.0-0.8); Eosinophils # 0.2 10*3/uL (0.0-0.87); Eosinophils % 2.1 % (0.00-10.9); Hematocrit 26.3 VOL% (35.7-47.0); Hemoglobin 7.8 GM/DL (12.0-16.0); Immature Granulocytes % 0.4 %; Immature Granulocytes Absolute 0.04 #; Lymphocytes # 0.9 10*3/uL (1.4-4.0); Lymphocytes % 9.8 % (21.3-54.2); Mean Corpuscular HGB Conc 29.7 GM/DL (32-36); Mean Corpuscular Hemoglobin 26 PG (27-34); Mean Corpuscular Volume 88.6 FL (87-102); Mean Platelet Volume 10.9 FL (9.6-12.0); Monocytes # 0.7 10*3/uL (0.11-0.8); Monocytes % 7.7 % (1.7-12.7); Neutrophils # 7.3 10*3/uL (1.4-7.4); Neutrophils % 79.9 % (38.7-73.9); Platelet Count 202 T/CUMM (130-400); Red Blood Count 2.97 MC/CUMM (3.8-5.5); Red Cell Distribution Width 20.3 % (9.3-17.3); White Blood Count 9.2 T/CUMM (4-12)
[2017-02-22 06:24] LABS: INR 1.2; PT Patient Result 13.1 SECS
[2017-02-22 06:57] LABS: Calcium 7.8 MG/DL (8.5-10.1); Osmolality,Calculated 285.5 MOS/KG (273-304); Potassium 4.4 MMOL/L (3.5-5.1)
[2017-02-22] MEDS: ALBUTEROL/IPRATROPIUM 3 ML NEB RESP TX SCH ×3 (07:19→19:25)
[2017-02-22] MEDS ORDERED: WARFARIN 1 MG TABLET PO ONE (08:28)
[2017-02-22] MEDS: ISOSORBIDE MONONITRATE 60 MG TABLET PO SCH (08:30)
[2017-02-22] MEDS: CAPTOPRIL 6.25 MG TABLET PO SCH (08:30)
[2017-02-22] MEDS: ATORVASTATIN 80 MG TABLET PO SCH (08:30)
[2017-02-22] MEDS: FUROSEMIDE 80 MG TABLET PO SCH (08:31)
[2017-02-22] MEDS: chlordiazePOXIDE 10 MG CAPSULE PO SCH (08:31)
[2017-02-22] MEDS: PANTOPRAZOLE 40 MG TABLET PO SCH (08:31)
[2017-02-22] MEDS: POTASSIUM CHLORIDE 10 MEQ TABLET PO SCH ×3 (08:31→17:13)
[2017-02-22] MEDS: CARVEDILOL 25 MG TABLET PO SCH ×2 (08:31→20:30)
[2017-02-22] MEDS: hydrALAZINE 25 MG TABLET PO SCH ×2 (08:31→20:30)
--- NOTE | 2017-02-22 08:31 | Cardiology Progress Note ---
Assessment and Plan (1) Breast cancer Status: Acute Assessment and plan: SEE LIST IN PLAN OF CARE BELOW Initial assessment: 1. 66-year-old BMI 37.5 BF with multiple medical problems including hypertension, diabetes, CAD status post CABG/mechanical mitral valve replacement at least 7 years ago with severe ischemic cardiomyopathy (recently EF 20% with normally functioning mechanical mitral valve.), history of multiple GI bleeds, diagnosed with breast cancer for mastectomy in the morning. 2. She is obvious significant risk, but this is not elective surgery. Her Coumadin has been held several days with INR 1.3 but is now on heparin infusion on protocol. Resume heparin after surgery, his status surgery believes this can be done with a reasonable amount of safety. 3. Appears to have CKD with creatinine below 2 but previous history of acute renal failure with dialysis in the past. 4. Give IV Lasix 1 given her neck veins were elevated and she has a few crackles in her left base 5. Status post vein graft stents to RCA anastomosis and diagonal anastomosis in [address] Gant who is her primary rn surgical pcu. 6. We will follow closely with you. February 20, 2017: 1. Ms. Yañez is alert and oriented hemodynamically stable postmastectomy this morning although she has slight tachycardia 2. Continue Coreg and Lasix as needed, would add low-dose captopril given her slight hypertension and severe ischemic cardiomyopathy 3. High intensity statin therapy 4. Miner mechanical mitral valve sound on examination is encouraging. 5. Heparin being held until morning; this is reasonable if needed to avoid significant bleeding, as giving blood products would be a negative unless absolutely necessary. 6. Start low-dose Coumadin tonight 1 mg every afternoon 7. We will follow with you February 21, 2017: 1. No evidence of significant bleeding with reasonably stable hematocrit, now back on heparin infusion. 2. Received Coumadin yesterday 1 and is back on normal dose. We will give an extra 1 mg dose this morning. 3. Miner S1 on examination suggests no thrombus is present. 4. Significant postop tenderness at her mastectomy site; would avoid NSAIDs given her ischemic cardiomyopathy hypertension and CKD. February 22, 2017: 1. Ms. Yañez is now hemodynamically stable (hypotension currently resolved ), alert and asymptomatic 2. INR still subtherapeutic; given additional 1 mg of Coumadin this morning and continue her usual 1 mg every afternoon thereafter with heparin infusion until INR is around 2 3. Creatinine slightly up today so we will hold low-dose PRINCESS inhibitor for now. Continue hydralazine, nitrates, and full dose Coreg. 4. Severe ischemic cardiomyopathy with EF 20% 5. She can be transferred from ICU from my standpoint Current Visit: Yes Qualifiers: Patient sex: female Laterality: left (2) Anemia Status: Chronic Assessment and plan: SEE LIST IN PLAN OF CARE BELOW Current Visit: No (3) CKD (chronic kidney disease) stage 2, GFR 60-89 ml/min Status: Chronic Assessment and plan: SEE LIST IN PLAN OF CARE BELOW Current Visit: No (4) Congestive heart failure Status: Chronic Assessment and plan: SEE LIST IN PLAN OF CARE BELOW Current Visit: No (5) Coronary artery disease Status: Chronic Assessment and plan: SEE LIST IN PLAN OF CARE BELOW Current Visit: No (6) History of heart valve replacement with mechanical valve Status: Chronic Assessment and plan: SEE LIST IN PLAN OF CARE BELOW Current Visit: No (7) Hypertension Status: Chronic Current Visit: No (8) Chronic anticoagulation Status: Chronic Current Visit: No Cardiology - PN: Subj Interval history: Ms. Yañez is feeling well sitting up eating breakfast. She knows she is emergent in the hospital. She could tell me the day with a little bit of help. She has no chest discomfort or shortness of breath. Her blood pressure is improved and is normal currently. She has not had a more apparent bleeding. Exam (Progress Note) - Constitutional Vitals: Period Temp Pulse Resp BP Sys/Eli Pulse Ox Last 24 Hr 97.5 F-99.0 F 80-145 10-24 89-129/47-72 89-100 General appearance: no acute distress, over weight - Head Head exam: Present: normal inspection, normocephalic, atraumatic - Neck Neck exam: Present: normal inspection - Respiratory Respiratory exam: Absent: stridor, wheezes - Cardiovascular Cardiovascular exam: Present: regular rate and rhythm, systolic murmur, other ( Miner S1; borderline tachycardia) - GI/Abdominal GI/Abdominal exam: Present: soft. Absent: tenderness - Extremities Exam Extremities exam: Present: edema - Neurological Exam Neurological exam: Present: alert, oriented X3 - Psychiatric Psychiatric exam: Present: normal affect, normal mood Result/EKG - Labs CBC & BMP: 02/22/17 06:03 02/22/17 06:03 Labs: Laboratory Results - last 24 hr 02/21/17 02/21/17 02/21/17 11:26 11:55 16:19 WBC RBC Hgb Hct MCV MCH MCHC RDW Plt Count MPV Neut % (Auto) Lymph % (Auto) [place] % (Auto) Eos % (Auto) Baso % (Auto) Neut # (Auto) Lymph # (Auto) [place] # (Auto) Eos # (Auto) Baso # (Auto) Immature Gran % Nucleated RBC % Immature Gran # Nucleated RBCs # Immature Plt Fraction INR PT Patient/Control Mix Circ Anticoag PTT 43.6 H D Sodium Potassium Chloride Carbon Dioxide Anion Gap BUN Creatinine GFR Calculation BUN/Creatinine Ratio Glucose POC Glucose 137 H 155 H Calculated Osmolality Calcium Magnesium 02/21/17 02/21/17 02/22/17 19:23 20:09 00:47 WBC RBC Hgb Hct MCV MCH MCHC RDW Plt Count MPV Neut % (Auto) Lymph % (Auto) [place] % (Auto) Eos % (Auto) Baso % (Auto) Neut # (Auto) Lymph # (Auto) [place] # (Auto) Eos # (Auto) Baso # (Auto) Immature Gran % Nucleated RBC % Immature Gran # Nucleated RBCs # Immature Plt Fraction INR PT Patient/Control Mix Circ Anticoag PTT 50.6 H 57.5 H Sodium Potassium Chloride Carbon Dioxide Anion Gap BUN Creatinine GFR Calculation BUN/Creatinine Ratio Glucose POC Glucose 210 H Calculated Osmolality Calcium Magnesium 02/22/17 02/22/17 02/22/17 04:52 06:03 06:03 WBC 9.2 RBC 2.97 L Hgb 7.8 L Hct 26.3 L MCV 88.6 MCH 26 L MCHC 29.7 L RDW 20.3 H Plt Count 202 MPV 10.9 Neut % (Auto) 79.9 H Lymph % (Auto) 9.8 L [place] % (Auto) 7.7 Eos % (Auto) 2.1 Baso % (Auto) 0.1 Neut # (Auto) 7.3 Lymph # (Auto) 0.9 L [place] # (Auto) 0.7 Eos # (Auto) 0.2 Baso # (Auto) 0.0 Immature Gran % 0.4 Nucleated RBC % 0.0 Immature Gran # 0.04 Nucleated RBCs # 0.00 Immature Plt Fraction 0.0 INR 1.2 PT Patient/Control Mix 13.1 Circ Anticoag PTT Sodium Potassium Chloride Carbon Dioxide Anion Gap BUN Creatinine GFR Calculation BUN/Creatinine Ratio Glucose POC Glucose 165 H Calculated Osmolality Calcium Magnesium 02/22/17 02/22/17 06:03 07:52 WBC RBC Hgb Hct MCV MCH MCHC RDW Plt Count MPV Neut % (Auto) Lymph % (Auto) [place] % (Auto) Eos % (Auto) Baso % (Auto) Neut # (Auto) Lymph # (Auto) [place] # (Auto) Eos # (Auto) Baso # (Auto) Immature Gran % Nucleated RBC % Immature Gran # Nucleated RBCs # Immature Plt Fraction INR PT Patient/Control Mix Circ Anticoag PTT Sodium 139 Potassium 4.4 Chloride 100 Carbon Dioxide 35 H Anion Gap 8.4 BUN 28 H Creatinine 2.10 H GFR Calculation 31 BUN/Creatinine Ratio 13.00 Glucose 159 H POC Glucose 179 H Calculated Osmolality 285.5 Calcium 7.8 L Magnesium 2.0
[2017-02-22] MEDS: INSULIN REGULAR 100 UNIT/ML SUBCUT SCH ×3 (11:58→20:58)
--- NOTE | 2017-02-22 15:27 | General Surgery Progress Note ---
Assessment and Plan - Time spent with patient Time spent discussing smoking cessation with patient: 3 to 10 minutes (1) Breast cancer Status: Acute Assessment and plan: recovering well from mastectomy....transfer to floor coumadin restarted thursday, INR still subtherapeutic....cont heparin for now Current Visit: Yes Qualifiers: Patient sex: female Laterality: left Subjective Patient reports: Present: no new complaints, feels better, pain is less Exam - Constitutional Vitals: Period Temp Pulse Resp BP Sys/Eli Pulse Ox Last 24 Hr 97.5 F-99.0 F 80-145 10-24 89-150/47-82 89-100 - Breasts Breasts: other (dressing left mastectomy, clean intact; drains serous) Results - Labs CBC & BMP: 02/22/17 06:03 02/22/17 06:03
[2017-02-22] MEDS: HEPARIN DRIP 25,000 UNITS/500 ML PREMIX IV SCH (15:49)
[2017-02-22] MEDS: WARFARIN 1 MG TABLET PO SCH (17:46)
[2017-02-22] MEDS: AMITRIPTYLINE 25 MG TABLET PO SCH (20:24)
[2017-02-23 01:45] LABS: Basophils % 0.1 % (0.0-0.8); Eosinophils # 0.2 10*3/uL (0.0-0.87); Eosinophils % 2.3 % (0.00-10.9); Hematocrit 23.3 VOL% (35.7-47.0); Hemoglobin 7.1 GM/DL (12.0-16.0); Immature Granulocytes % 0.6 %; Immature Granulocytes Absolute 0.05 #; Lymphocytes # 0.9 10*3/uL (1.4-4.0); Lymphocytes % 11.4 % (21.3-54.2); Mean Corpuscular HGB Conc 30.5 GM/DL (32-36); Mean Corpuscular Hemoglobin 27 PG (27-34); Mean Corpuscular Volume 87.3 FL (87-102); Mean Platelet Volume 11.6 FL (9.6-12.0); Monocytes # 0.9 10*3/uL (0.11-0.8); Monocytes % 10.4 % (1.7-12.7); Neutrophils # 6.1 10*3/uL (1.4-7.4); Neutrophils % 75.2 % (38.7-73.9); Platelet Count 187 T/CUMM (130-400); Red Blood Count 2.67 MC/CUMM (3.8-5.5); Red Cell Distribution Width 20.1 % (9.3-17.3); White Blood Count 8.1 T/CUMM (4-12)
[2017-02-23 02:01] LABS: Calcium 7.8 MG/DL (8.5-10.1); Magnesium 1.8 MG/DL (1.8-2.4); Osmolality,Calculated 285.5 MOS/KG (273-304); Potassium 4.2 MMOL/L (3.5-5.1)
[2017-02-23 06:58] LABS: INR 1.2; PT Patient Result 12.6 SECS
[2017-02-23] MEDS: ALBUTEROL/IPRATROPIUM 3 ML NEB RESP TX SCH ×3 (07:51→19:14)
[2017-02-23] MEDS: INSULIN REGULAR 100 UNIT/ML SUBCUT SCH ×4 (09:19→20:56)
[2017-02-23] MEDS: PANTOPRAZOLE 40 MG TABLET PO SCH (09:21)
[2017-02-23] MEDS: FUROSEMIDE 80 MG TABLET PO SCH (09:21)
[2017-02-23] MEDS: FERROUS SULFATE 325 MG TABLET PO SCH (09:22)
[2017-02-23] MEDS: ATORVASTATIN 80 MG TABLET PO SCH (09:22)
[2017-02-23] MEDS: ACETAMINOPHEN 325 MG TABLET PO PRN ×2 (09:29→22:01)
[2017-02-23] MEDS: hydrALAZINE 25 MG TABLET PO SCH ×2 (09:30→20:42)
[2017-02-23] MEDS: CARVEDILOL 25 MG TABLET PO SCH ×2 (09:31→20:42)
[2017-02-23] MEDS: ISOSORBIDE MONONITRATE 60 MG TABLET PO SCH (09:31)
[2017-02-23] MEDS: chlordiazePOXIDE 10 MG CAPSULE PO SCH (09:31)
[2017-02-23] MEDS: POTASSIUM CHLORIDE 10 MEQ TABLET PO SCH ×3 (09:32→17:54)
[2017-02-23] MEDS: HEPARIN DRIP 25,000 UNITS/500 ML PREMIX IV SCH (12:35)
--- NOTE | 2017-02-23 16:34 | Cardiology Progress Note ---
Scotty James Lesley, NP, am scribing for, and in the presence of, Sherrie Armstrong MD 16:34. Assessment and Plan - Time spent with patient Time spent with patient: Greater than 30 minutes (Assessment, exam, and documentation of POC) (1) Breast cancer Status: Acute Assessment and plan: SEE LIST IN PLAN OF CARE BELOW Current Visit: Yes Qualifiers: Patient sex: female Laterality: left (2) Anemia Status: Chronic Assessment and plan: SEE LIST IN PLAN OF CARE BELOW Current Visit: No (3) CKD (chronic kidney disease) stage 2, GFR 60-89 ml/min Status: Chronic Assessment and plan: SEE LIST IN PLAN OF CARE BELOW Current Visit: No (4) Congestive heart failure Status: Chronic Assessment and plan: SEE LIST IN PLAN OF CARE BELOW Current Visit: No (5) Coronary artery disease Status: Chronic Assessment and plan: SEE LIST IN PLAN OF CARE BELOW Current Visit: No (6) History of heart valve replacement with mechanical valve Status: Chronic Assessment and plan: SEE LIST IN PLAN OF CARE BELOW Current Visit: No (7) Hypertension Status: Chronic Current Visit: No (8) Chronic anticoagulation Status: Chronic Current Visit: No Cardiology - PN: Subj Interval history: 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 Yañez is a 66 BF, with a history of DM type II, hypertension , CAD status post CABG, stent placement, dyslipidemia, obesity, MECHANICAL MITRAL VALVE REPLACEMENT, chronic anticoagulation, iron deficiency anemia, chronic renal insufficiency, smoker, chronic angina. Severe ischemic cardiomyopathy with EF 20%. February 20, 2017, underwent left modified radical mastectomy with sentinel node dissection of the left axilla. She was transferred to ICU postoperatively to monitor respiratory status and maintained on BiPap machine. Heparin infusion protocol restarted postsurgery for mechanical mitral valve. Coumadin was restarted on February 20, 2017, however Heparin gtt was held 02/21/17 due to significant bleeding from surgical site. As patient stabilized hemodynamically, Heparin infusion was restarted and plan to continue until INR is around 2. Patient has received Coumadin 2 mg daily for 2 days, and will continue Coumadin 1 mg daily, as this is her usual dose. Creatinine slightly elevated, his low-dose PRINCESS inhibitor held. FEBRUARY 23, 2017: Patient did well overnight. She is complaining of significant soreness to the left mastectomy site and with movement of left arm. INR 1.2, would continue daily Coumadin at 1 mg given the patient's low hemoglobin and hematocrit. Creatinine returned to 1.8, this is her baseline. Her blood pressure is stable 148/66, heart rate noted at 80 bpm. ASSESSMENT/PLAN: 1. LEFT BREAST MALIGNANCY - status post left mastectomy 2. KNOWN CAD (previous CABG and stent placement) - continue home medication and monitor closely. Clinically this appears to be stable. 3. HYPERTENSION - continue beta-sharona, PRINCESS inhibitor. Adjust medications accordingly during the hospital stay. 4. IRON DEFICIENCY ANEMIA - hemoglobin and hematocrit 7 and 23. Currently on heparin and warfarin. INR and CBC daily. 5. TOBACCO ABUSE - the merits of smoking cessation have been discussed greater than 5 minutes. 6. MECHANICAL MITRAL VALVE REPLACEMENT -continue heparin protocol, Coumadin daily INR still subtherapeutic 7. DIABETES TYPE 2 - continue Accu-Cheks, sliding scale. 8 ISCHEMIC CARDIOMYOPATHY - EF 20%, continue current plan of care. 9. CHF - Acute on chronic CHF secondary to systolic dysfunction (EF 20%) and diastolic dysfunction, NYHA Class II-III. Exam (Progress Note) - Constitutional Vitals: Period Temp Pulse Resp BP Sys/Eli Pulse Ox Last 24 Hr 97.1 F-99.4 F 80-101 10-20 101-157/53-74 92-100 Exam: General: Patient is no apparent distress. Pleasant and cooperative. Appears comfortable. HEENT: PERRL, normocephalic, atraumatic. Mucous membranes moist. No jaundice noted. Conjunctiva moist and clear, sclerae anicteric. Neck: No JVD/HJR, no thyromegaly or lymphadenopathy noted. Cardiac: Regular rate and rhythm, mechanical S2 auscultated. No murmur rub or gallop. PMI is nondisplaced. Lungs: Essentially clear to auscultation, Rales noted to right base without accessory muscle use to assist the respiratory pattern. Abdomen: Soft, bowel sounds normoactive. Nontender and nondistended. No abdominal bruit or thrill noted. No masses noted. Musculoskeletal: No fluid collection. Normal range of motion is noted while lying in bed. Dressing intact to left chest wall, SAURAV drain X 2, small amount of serosanguineous drainage noted. Significant tenderness to palpation. Extremities: No clubbing, cyanosis noted. Mild bilateral lower extremity edema noted. Upper extremity pulses 2+. Lower extremity pulses 2+. Capillary refill less than 3 seconds. Skin: No unusual lesions or rashes. No skin breakdown appreciated. Neuro: Awake, alert and oriented 3. Moves all extremities well without hemiparesis or paralysis. No essential tremor is appreciated. Result/EKG - Labs CBC & BMP: 02/23/17 00:53 02/23/17 00:53 Lab Results: I have reviewed the past 24 hour labs Labs: Laboratory Results - last 24 hr 02/22/17 02/22/17 02/22/17 11:35 13:00 16:52 WBC RBC Hgb Hct MCV MCH MCHC RDW Plt Count MPV Neut % (Auto) Lymph % (Auto) [place] % (Auto) Eos % (Auto) Baso % (Auto) Neut # (Auto) Lymph # (Auto) [place] # (Auto) Eos # (Auto) Baso # (Auto) Immature Gran % Nucleated RBC % Immature Gran # Nucleated RBCs # Immature Plt Fraction INR PT Patient/Control Mix Circ Anticoag PTT 41.8 H Sodium Potassium Chloride Carbon Dioxide Anion Gap BUN Creatinine GFR Calculation BUN/Creatinine Ratio Glucose POC Glucose 146 H 197 H Calculated Osmolality Calcium Magnesium 02/22/17 02/22/17 02/23/17 19:08 20:00 00:53 WBC RBC Hgb Hct MCV MCH MCHC RDW Plt Count MPV Neut % (Auto) Lymph % (Auto) [place] % (Auto) Eos % (Auto) Baso % (Auto) Neut # (Auto) Lymph # (Auto) [place] # (Auto) Eos # (Auto) Baso # (Auto) Immature Gran % Nucleated RBC % Immature Gran # Nucleated RBCs # Immature Plt Fraction INR PT Patient/Control Mix Circ Anticoag PTT 48.5 H 63.7 H D Sodium Potassium Chloride Carbon Dioxide Anion Gap BUN Creatinine GFR Calculation BUN/Creatinine Ratio Glucose POC Glucose 204 H Calculated Osmolality Calcium Magnesium 02/23/17 02/23/17 02/23/17 00:53 00:53 06:34 WBC 8.1 RBC 2.67 L Hgb 7.1 L Hct 23.3 L MCV 87.3 MCH 27 MCHC 30.5 L RDW 20.1 H Plt Count 187 MPV 11.6 Neut % (Auto) 75.2 H Lymph % (Auto) 11.4 L [place] % (Auto) 10.4 Eos % (Auto) 2.3 Baso % (Auto) 0.1 Neut # (Auto) 6.1 Lymph # (Auto) 0.9 L [place] # (Auto) 0.9 H Eos # (Auto) 0.2 Baso # (Auto) 0.0 Immature Gran % 0.6 Nucleated RBC % 0.0 Immature Gran # 0.05 Nucleated RBCs # 0.00 Immature Plt Fraction 0.0 INR 1.2 PT Patient/Control Mix 12.6 Circ Anticoag PTT Sodium 139 Potassium 4.2 Chloride 100 Carbon Dioxide 35 H Anion Gap 8.2 BUN 27 H Creatinine 1.80 H GFR Calculation 38 BUN/Creatinine Ratio 15.00 Glucose 165 H POC Glucose Calculated Osmolality 285.5 Calcium 7.8 L Magnesium 1.8 02/23/17 02/23/17 06:34 06:54 WBC RBC Hgb Hct MCV MCH MCHC RDW Plt Count MPV Neut % (Auto) Lymph % (Auto) [place] % (Auto) Eos % (Auto) Baso % (Auto) Neut # (Auto) Lymph # (Auto) [place] # (Auto) Eos # (Auto) Baso # (Auto) Immature Gran % Nucleated RBC % Immature Gran # Nucleated RBCs # Immature Plt Fraction INR PT Patient/Control Mix Circ Anticoag PTT 64.6 H Sodium Potassium Chloride Carbon Dioxide Anion Gap BUN Creatinine GFR Calculation BUN/Creatinine Ratio Glucose POC Glucose 163 H Calculated Osmolality Calcium Magnesium - EKG EKG results: interpreted by me, sinus rhythm EKG shows: tachycardia Specialty Discharge - Follow Up or Referrals Follow up with: Ravindra Alcazar MD [Physician] - Nathaniel James Jennifer, MD, personally performed the services described in this documentation, ascribed by Bettina Fajardo NP in my presence, and it is both accurate and complete 634 .
--- NOTE | 2017-02-23 17:17 | Pathology Report from [facility] ---
[facility] ACCESSION # : [id number] PATIENT NAME : Virginia Yañez ORDERING DR : Ravindra Alcazar MD CLINICAL HX: Abnormal mammogram - Breast cancer POST-OP DX: Same SPECIMEN INFO: #1 [place] node biopsy left axilla, #2 [place] node #2 left axilla, #3 [place] node biopsy #3 left axilla, #4 Left breast and axillary tail GROSS DESCRIPTION: The specimen is received in four parts labeled VIRGINIA YAÑEZ. Part #1 is received fresh for frozen section consists of a fragment of hyperemic fatty tissue measuring 3.4 x 2.4 x 1.5 cm., submitted in cassette #1 for frozen section.Part #2 is received fresh for frozen section and consists of a 1.0 x 0.5 cm [place] lymph node, sectioned and submitted in cassette # 2 for frozen section.Part #3 is received fresh and is a 1.0 x 0.6 cm pink-[place] lymph node with attached adipose tissue. Sectioned and submitted in cassette # 3.Part #4 is received in formalin and is a left breast mastectomy measuring 28.1 x 17.9 cm x up to 5.0 cm. There is an overlying light brown ellipse of skin measuring 8.3 x 23.7 cm. The nipple is unremarkable. There is no distinct blue dye lateral to the nipple and the areola. Attached to the breast is a portion of axillary tail measuring 15.3 x 7.5 x 3.7 cm. In the lower outer quadrant in the approximate 4 oclock position is a well-circumscribed pink -[place] mass measuring 2.7 x 2.0 cm. The mass appears to come to within 0.3 cm of the anterior margin which is inked blue and 1.5 cm of the deep margin which is inked black. A hemorrhagic area is found within the mass which contains the biopsy clip. Sectioning through the remainder of the breast is mostly fibrofatty, however, approximately 6.0 cm from the primary mass in the approximate upper outer quadrant is a 0.5 cm well-circumscribed white-yellow which may possibly represent a lymph node. The axillary tail is submitted in dissect aid for lymph node search. Sections submitted: 4A nipple and skin, 4B thru 4D tumor with adjacent inferior margin, 4E tumor with biopsy cavity, 4F and 4G personal financial representative deep margin. 4H 0.5 cm nodule.Note: Time in formalin is 10:30 AM on Thursday02/20/2017. Time out of formalin is 06:00 PM on 02/20.Note: After lymph node search approximately six lymph nodes are submitted and submitted in cassettes I thru K. (02/22/2017) DIAGNOSIS FOR VIRGINIA YAÑEZ: SEE PAGE #2PAGE #2#1 #2 #3 #4 LEFT BREAST, MASTECTOMY WITH SENTINEL & AXILLARY NODES (Intact, 28.1 x 17.9 cm): HISTOLOGIC TYPE: Invasive ductal carcinoma. TUMOR SITE: Lower outer quadrant. TUMOR SIZE: 27 mm. MICHELE GRADE III (tubules = 3, pleomorphism = 3, mitoses = 8 MF/ 10 HPF) TUMOR MARGINS: Margins uninvolved by carcinoma, with nearest (anterior) margin = 3 mm. TUMOR FOCALITY: Single focus of invasive carcinoma. DCIS: No DCIS in specimen. LYMPHOVASCULAR INVASION: Not identified. LYMPH NODES: Total lymph nodes present (sentinel & non sentinel): 9 ; Total sentinel nodes: 3. Lymph nodes with macrometastases (>2 mm) = 1. TREATMENT EFFECT - BREAST: No known presurgical therapy. AJCC PATHOLOGIC STAGE IIB ([id number]). COLLECTED DATE: 02/20/2017 [facility] REPORT DATE: 02/23/2017 ELECTRONICALLY SIGNED BY: Yasmani Hernandez M.D. 02/23/2017 - 13:53:36 [facility]
[2017-02-23] MEDS: WARFARIN 1 MG TABLET PO SCH (17:54)
--- NOTE | 2017-02-23 20:30 | General Surgery Progress Note ---
Assessment and Plan - Time spent with patient Time spent discussing smoking cessation with patient: 3 to 10 minutes (1) Breast cancer Status: Acute Assessment and plan: recovering well from mastectomy. coumadin restarted thursday, INR still subtherapeutic....cont heparin for now Hematocrit has been trending down... Consider transfusion, if much lower tomorrow, but will leave decision to Dr. Gant. Current Visit: Yes Qualifiers: Patient sex: female Laterality: left Subjective Patient reports: Present: other (Patient reports soreness at mastectomy site ) Exam - Constitutional Vitals: Period Temp Pulse Resp BP Sys/Eli Pulse Ox Last 24 Hr 97.1 F-99.4 F 71-105 16-20 103-157/45-74 92-100 General appearance: no acute distress - Respiratory Respiratory exam: Present: clear to auscultation bilaterally - Cardiovascular Cardiovascular exam: Present: RRR - Breasts Breasts: other (Mastectomy site with ecchymosis and tenderness; drains with serosanguineous output.) - Neurological Exam Neurological exam: Present: alert Results - Labs CBC & BMP: 02/23/17 00:53 02/23/17 00:53 Specialty Discharge - Follow Up or Referrals Follow up with: Ravindra Alcazar MD [Physician] -
[2017-02-23] MEDS: AMITRIPTYLINE 25 MG TABLET PO SCH (20:42)
[2017-02-24 06:36] LABS: INR 1.2; PT Patient Result 12.5 SECS
[2017-02-24] MEDS: ALBUTEROL/IPRATROPIUM 3 ML NEB RESP TX SCH ×3 (07:10→19:08)
[2017-02-24 08:30] LABS: Basophils % 0.2 % (0.0-0.8); Eosinophils # 0.2 10*3/uL (0.0-0.87); Eosinophils % 2.8 % (0.00-10.9); Hematocrit 23.3 VOL% (35.7-47.0); Hemoglobin 7.2 GM/DL (12.0-16.0); Immature Granulocytes % 0.5 %; Immature Granulocytes Absolute 0.03 #; Lymphocytes # 0.6 10*3/uL (1.4-4.0); Lymphocytes % 10.5 % (21.3-54.2); Mean Corpuscular HGB Conc 30.9 GM/DL (32-36); Mean Corpuscular Hemoglobin 27 PG (27-34); Mean Corpuscular Volume 86.3 FL (87-102); Mean Platelet Volume 11.5 FL (9.6-12.0); Monocytes # 0.6 10*3/uL (0.11-0.8); Monocytes % 9.5 % (1.7-12.7); Neutrophils # 4.6 10*3/uL (1.4-7.4); Neutrophils % 76.5 % (38.7-73.9); Platelet Count 179 T/CUMM (130-400); Red Cell Distribution Width 19.9 % (9.3-17.3)
[2017-02-24 08:57] LABS: Calcium 8.1 MG/DL (8.5-10.1); Magnesium 1.8 MG/DL (1.8-2.4); Osmolality,Calculated 283.5 MOS/KG (273-304); Potassium 4.3 MMOL/L (3.5-5.1)
[2017-02-24] MEDS ORDERED: SODIUM CHLORIDE 0.9% 250 ML IV PRN (09:06)
[2017-02-24] MEDS: INSULIN REGULAR 100 UNIT/ML SUBCUT SCH ×4 (09:19→21:20)
[2017-02-24] MEDS: FUROSEMIDE 80 MG TABLET PO SCH (09:56)
[2017-02-24] MEDS: ISOSORBIDE MONONITRATE 60 MG TABLET PO SCH (09:57)
[2017-02-24] MEDS: hydrALAZINE 25 MG TABLET PO SCH ×2 (09:57→21:18)
[2017-02-24] MEDS: PANTOPRAZOLE 40 MG TABLET PO SCH (09:58)
[2017-02-24] MEDS: CARVEDILOL 25 MG TABLET PO SCH ×2 (09:59→21:20)
[2017-02-24] MEDS: chlordiazePOXIDE 10 MG CAPSULE PO SCH (09:59)
[2017-02-24] MEDS: POTASSIUM CHLORIDE 10 MEQ TABLET PO SCH ×3 (10:00→16:58)
[2017-02-24] MEDS: ATORVASTATIN 80 MG TABLET PO SCH (10:06)
[2017-02-24] MEDS: HEPARIN DRIP 25,000 UNITS/500 ML PREMIX IV SCH (14:24)
--- NOTE | 2017-02-24 16:01 | Cardiology Progress Note ---
Scotty James Lesley, NP, am scribing for, and in the presence of, Sherrie Armstrong MD 15:54. Assessment and Plan (1) Breast cancer Status: Acute Assessment and plan: SEE LIST IN PLAN OF CARE BELOW Current Visit: Yes Qualifiers: Patient sex: female Laterality: left (2) Anemia Status: Chronic Assessment and plan: SEE LIST IN PLAN OF CARE BELOW Current Visit: No (3) CKD (chronic kidney disease) stage 2, GFR 60-89 ml/min Status: Chronic Assessment and plan: SEE LIST IN PLAN OF CARE BELOW Current Visit: No (4) Congestive heart failure Status: Chronic Assessment and plan: SEE LIST IN PLAN OF CARE BELOW Current Visit: No (5) Coronary artery disease Status: Chronic Assessment and plan: SEE LIST IN PLAN OF CARE BELOW Current Visit: No (6) History of heart valve replacement with mechanical valve Status: Chronic Assessment and plan: SEE LIST IN PLAN OF CARE BELOW Current Visit: No (7) Hypertension Status: Chronic Current Visit: No (8) Chronic anticoagulation Status: Chronic Current Visit: No Cardiology - PN: Subj Interval history: CAMPUS ADMINISTRATIVE ASSISTANT: DR. 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 Yañez is a 66 BF, with a history of DM type II, hypertension , CAD status post CABG, stent placement, dyslipidemia, obesity, MECHANICAL MITRAL VALVE REPLACEMENT, chronic anticoagulation, iron deficiency anemia, chronic renal insufficiency, smoker, chronic angina. Severe ischemic cardiomyopathy with EF 20%. February 20, 2017, underwent left modified radical mastectomy with sentinel node dissection of the left axilla. She was transferred to ICU postoperatively to monitor respiratory status and maintained on BiPap machine. Heparin infusion protocol restarted postsurgery for mechanical mitral valve. Coumadin was restarted on February 20, 2017, however Heparin gtt was held 02/21/17 due to significant bleeding from surgical site. As patient stabilized hemodynamically, Heparin infusion was restarted and plan to continue until INR is around 2. Patient has received Coumadin 2 mg daily for 2 days, and will continue Coumadin 1 mg daily, as this is her usual dose. Creatinine slightly elevated, his low-dose PRINCESS inhibitor held. FEBRUARY 23, 2017: Patient did well overnight. She is complaining of significant soreness to the left mastectomy site and with movement of left arm. INR 1.2, would continue daily Coumadin at 1 mg given the patient's low hemoglobin and hematocrit. Creatinine returned to 1.8, this is her baseline. Her blood pressure is stable 148/66, heart rate noted at 80 bpm. FEBRUARY 24, 2017: Patient is sitting up on the side of the bed eating breakfast. Vital signs have remained stable overnight, blood pressure 142/59, heart rate 70s-90s. Hemoglobin and hematocrit stable, however 7 and 23. INR continues to be subtherapeutic at 1.2, PT 12.5, and PTT 64.1. Creatinine is stable at 1.6. The plan today is to transfuse the patient with 2 units of PRBCs. We will also increase her Coumadin dose today to 5 mg, and continue heparin protocol. Surgical incision with soreness and dressing intact, if I's and O's accurate, SAURAV drainage is significantly less. Plan to repeat labs in the morning. I asked the patient repeatedly yesterday to verify her Coumadin dosing of 1 mg, and she had family present today as well that also "verified" at that with the dosage she takes. However, when we called the pharmacy, they tell us that the only dose that has been filled in anytime recently as a 5 mg dose. Accordingly we are going to adjust her dosage. ASSESSMENT/PLAN: 1. LEFT BREAST MALIGNANCY - status post left mastectomy 2. KNOWN CAD (previous CABG and stent placement) - continue home medication and monitor closely. Clinically this appears to be stable. 3. HYPERTENSION - continue beta-sharona, PRINCESS inhibitor. Adjust medications accordingly during the hospital stay. 4. IRON DEFICIENCY ANEMIA - hemoglobin and hematocrit 7 and 23, transfuse 2 units PRBCs today. Continue heparin and increase warfarin. INR and CBC daily. 5. TOBACCO ABUSE - the merits of smoking cessation have been discussed greater than 5 minutes. 6. MECHANICAL MITRAL VALVE REPLACEMENT -continue heparin protocol, increase Coumadin dose, daily INR still subtherapeutic 7. DIABETES TYPE 2 - continue Accu-Cheks, sliding scale. 8 ISCHEMIC CARDIOMYOPATHY - EF 20%, continue current plan of care. 9. CHF - Acute on chronic CHF secondary to systolic dysfunction (EF 20%) and diastolic dysfunction, NYHA Class II-III. Exam (Progress Note) - Constitutional Vitals: Period Temp Pulse Resp BP Sys/Eli Pulse Ox Last 24 Hr 96.9 F-99.4 F 71-105 16-20 123-144/45-72 94-100 Exam: General: Patient is no apparent distress. Pleasant and cooperative. Appears comfortable. HEENT: PERRL, normocephalic, atraumatic. Mucous membranes moist. No jaundice noted. Conjunctiva moist and clear, sclerae anicteric. Neck: No JVD/HJR, no thyromegaly or lymphadenopathy noted. Cardiac: Regular rate and rhythm, mechanical S2. No murmur rub or gallop. PMI is nondisplaced. Lungs: Essentially clear to auscultation bilaterally, there is normal rise and fall of the chest. Abdomen: Soft, bowel sounds normoactive. Nontender and nondistended. No abdominal bruit or thrill noted. No masses noted. Musculoskeletal: No fluid collection. Normal range of motion is noted while lying in bed. Dressing intact to left chest wall, SAURAV drain X 2, small amount of serosanguineous drainage noted. Significant tenderness to palpation. Extremities: No clubbing, cyanosis noted. Mild bilateral lower extremity edema noted. Upper extremity pulses 2+. Lower extremity pulses 2+. Capillary refill less than 3 seconds. Skin: No unusual lesions or rashes. No skin breakdown appreciated. Neuro: Awake, alert and oriented 3. Moves all extremities well without hemiparesis or paralysis. No essential tremor is appreciated. Result/EKG - Labs CBC & BMP: 02/24/17 07:52 02/24/17 07:52 Lab Results: I have reviewed the past 24 hour labs Labs: Laboratory Results - last 24 hr 02/23/17 02/23/17 02/23/17 11:12 15:59 19:57 WBC RBC Hgb Hct MCV MCH MCHC RDW Plt Count MPV Neut % (Auto) Lymph % (Auto) Mckean % (Auto) Eos % (Auto) Baso % (Auto) Neut # (Auto) Lymph # (Auto) Mckean # (Auto) Eos # (Auto) Baso # (Auto) Immature Gran % Nucleated RBC % Immature Gran # Nucleated RBCs # Immature Plt Fraction INR PT Patient/Control Mix Circ Anticoag PTT Sodium Potassium Chloride Carbon Dioxide Anion Gap BUN Creatinine GFR Calculation BUN/Creatinine Ratio Glucose POC Glucose 220 H 150 H 114 H Calculated Osmolality Calcium Magnesium 02/24/17 02/24/17 02/24/17 06:03 06:03 06:36 WBC RBC Hgb Hct MCV MCH MCHC RDW Plt Count MPV Neut % (Auto) Lymph % (Auto) Mckean % (Auto) Eos % (Auto) Baso % (Auto) Neut # (Auto) Lymph # (Auto) Mckean # (Auto) Eos # (Auto) Baso # (Auto) Immature Gran % Nucleated RBC % Immature Gran # Nucleated RBCs # Immature Plt Fraction INR 1.2 PT Patient/Control Mix 12.5 Circ Anticoag PTT 64.1 H Sodium Potassium Chloride Carbon Dioxide Anion Gap BUN Creatinine GFR Calculation BUN/Creatinine Ratio Glucose POC Glucose 158 H Calculated Osmolality Calcium Magnesium 02/24/17 02/24/17 07:52 07:52 WBC 6.0 RBC 2.70 L Hgb 7.2 L Hct 23.3 L MCV 86.3 L MCH 27 MCHC 30.9 L RDW 19.9 H Plt Count 179 MPV 11.5 Neut % (Auto) 76.5 H Lymph % (Auto) 10.5 L Mckean % (Auto) 9.5 Eos % (Auto) 2.8 Baso % (Auto) 0.2 Neut # (Auto) 4.6 Lymph # (Auto) 0.6 L Mckean # (Auto) 0.6 Eos # (Auto) 0.2 Baso # (Auto) 0.0 Immature Gran % 0.5 Nucleated RBC % 0.0 Immature Gran # 0.03 Nucleated RBCs # 0.00 Immature Plt Fraction 0.0 INR PT Patient/Control Mix Circ Anticoag PTT Sodium 139 Potassium 4.3 Chloride 101 Carbon Dioxide 35 H Anion Gap 7.3 BUN 27 H Creatinine 1.60 H GFR Calculation 44 BUN/Creatinine Ratio 16.00 Glucose 140 H POC Glucose Calculated Osmolality 283.5 Calcium 8.1 L Magnesium 1.8 Specialty Discharge - Follow Up or Referrals Follow up with: Ravindra Alcazar MD [Physician] - Nathaniel James Jennifer, MD, personally performed the services described in this documentation, ascribed by Bettina Fajardo NP in my presence, and it is both accurate and complete [id number] .
[2017-02-24] MEDS ORDERED: WARFARIN 1 MG TABLET PO SCH (18:00)
[2017-02-24] MEDS: WARFARIN 5 MG TABLET PO SCH (18:33)
[2017-02-24] MEDS: AMITRIPTYLINE 25 MG TABLET PO SCH (21:20)
[2017-02-25 05:43] LABS: Basophils % 0.2 % (0.0-0.8); Eosinophils # 0.2 10*3/uL (0.0-0.87); Eosinophils % 4.1 % (0.00-10.9); Hematocrit 28.5 VOL% (35.7-47.0); Hemoglobin 8.9 GM/DL (12.0-16.0); Immature Granulocytes % 0.5 %; Immature Granulocytes Absolute 0.03 #; Lymphocytes # 0.7 10*3/uL (1.4-4.0); Lymphocytes % 12.1 % (21.3-54.2); Mean Corpuscular HGB Conc 31.2 GM/DL (32-36); Mean Corpuscular Hemoglobin 27 PG (27-34); Mean Corpuscular Volume 85.6 FL (87-102); Mean Platelet Volume 12.5 FL (9.6-12.0); Monocytes # 0.6 10*3/uL (0.11-0.8); Monocytes % 10.8 % (1.7-12.7); Neutrophils # 4.1 10*3/uL (1.4-7.4); Neutrophils % 72.3 % (38.7-73.9); Platelet Count 192 T/CUMM (130-400); Red Blood Count 3.33 MC/CUMM (3.8-5.5); Red Cell Distribution Width 18.7 % (9.3-17.3); White Blood Count 5.6 T/CUMM (4-12)
[2017-02-25] MEDS: HEPARIN DRIP 25,000 UNITS/500 ML PREMIX IV SCH ×2 (06:00→13:53)
[2017-02-25 06:01] LABS: INR 1.1; PT Patient Result 12.1 SECS
[2017-02-25 06:21] LABS: Calcium 8.5 MG/DL (8.5-10.1); Osmolality,Calculated 282.4 MOS/KG (273-304); Potassium 4.2 MMOL/L (3.5-5.1)
[2017-02-25] MEDS: ALBUTEROL/IPRATROPIUM 3 ML NEB RESP TX SCH ×3 (06:55→18:59)
[2017-02-25] MEDS: INSULIN REGULAR 100 UNIT/ML SUBCUT SCH ×4 (07:34→21:59)
[2017-02-25] MEDS: FERROUS SULFATE 325 MG TABLET PO SCH (08:02)
[2017-02-25] MEDS: ACETAMINOPHEN 325 MG TABLET PO PRN (08:02)
[2017-02-25] MEDS: ISOSORBIDE MONONITRATE 60 MG TABLET PO SCH (08:03)
[2017-02-25] MEDS: PANTOPRAZOLE 40 MG TABLET PO SCH (08:03)
[2017-02-25] MEDS: ATORVASTATIN 80 MG TABLET PO SCH (08:03)
[2017-02-25] MEDS: FUROSEMIDE 80 MG TABLET PO SCH (08:03)
[2017-02-25] MEDS: CARVEDILOL 25 MG TABLET PO SCH ×2 (08:03→20:23)
[2017-02-25] MEDS: POTASSIUM CHLORIDE 10 MEQ TABLET PO SCH ×3 (08:03→16:46)
[2017-02-25] MEDS: hydrALAZINE 25 MG TABLET PO SCH ×2 (08:03→20:23)
[2017-02-25] MEDS: chlordiazePOXIDE 10 MG CAPSULE PO SCH (08:03)
--- NOTE | 2017-02-25 09:05 | Oncology Consult Note ---
History of Present Illness History of present illness: Ms. Yañez is a 66 year old female with breast cancer now status post mastectomy of the left breast. This patient underwent left mastectomy with sentinel node and axillary node dissection on February 20 2017. The primary tumor measured 27 mm. It was Vaughan grade 3. It was invasive ductal adenocarcinoma located in the lower outer quadrant. No DCIS was documented. 3 sentinel nodes and 9 total lymph nodes were obtained. One lymph node contained macro metastatic disease. I cannot locate a prior breast biopsy and I am unable to locate estrogen, progesterone and HER-2/srinivasa status. The patient has a history of heart valve replacement with mechanical heart valve as well as a history of congestive heart failure, diabetes, hypertension, and acute kidney injury. Physical examination: \General: The patient is actually well-developed well-nourished and in no acute distress Eyes: Normal lids and conjunctivae. ENT: Poor dentition. Her hearing is normal. Her trachea is midline and she has no neck masses. Lungs: Clear with essentially normal breath sounds. Cardiovascular: She has an artificial heart valve sound without jugular venous distention, clubbing, cyanosis or edema. Abdomen: No abdominal masses organomegaly or ascites. Musculoskeletal: There is no focal muscle atrophy or bone or joint deformity. Neurologic: Cranial nerves II through XII are intact. The no focal neurologic deficits. Nodes: No submandibular, cervical or supraclavicular adenopathy. Right axilla contains no adenopathy. Left axilla not examined. Impression this is a T2N1 MX stage IIb breast cancer and it should be considered for adjuvant therapy based on estrogen and progesterone receptor and HER-2/srinivasa status which I cannot locate. Home Medications Medication Instructions Recorded Confirmed Type Carvedilol [Coreg] 25 mg PO BID 12/13/16 02/19/17 History Ferrous Sulfate Tab [Feosol 325 mg PO QOTHER DAY 12/13/16 02/19/17 History Original Tab] Isosorbide Mononitrate [Isosorbide 60 mg PO DAILY 12/13/16 02/19/17 History Mononitrate ER] Amitriptyline [Elavil] 25 mg PO DAILY 02/02/17 02/19/17 History chlordiazePOXIDE [Librium] 10 mg PO DAILY 02/02/17 02/19/17 History hydrALAZINE TAB [Apresoline Tab] 25 mg PO BID 02/02/17 02/19/17 History Albuterol/Ipratropium Neb [Duoneb] 3 ml RESP TX TID 02/19/17 02/19/17 History Amlodipine Besylate 5 mg PO DAILY 02/19/17 02/19/17 History Furosemide Tab [Lasix Tab] 40 mg PO DAILY 02/19/17 02/19/17 History Pantoprazole Tab [Protonix Tab] 40 mg PO DAILY 02/19/17 02/19/17 History Potassium Chloride 10 meq PO TID W/MEALS 02/19/17 02/19/17 History Warfarin [Coumadin] 1 mg PO DAILY@1800 02/19/17 02/19/17 History sitaGLIPtin [Januvia] 25 mg PO DAILY 02/19/17 02/19/17 History Allergies Allergy/AdvReac Type Severity Reaction Status Date / Time morphine AdvReac Intermediate Drowsy Verified 02/21/17 18:10 Medical,Surgical,& Family Hx - Medical History Cardio: History of: CAD (s/p CABG), Hypertension, MT, Valvular Heart Disease (S/ p mechanical valve replacement), Cardiovascular Problems No history of: Aneurysm, Cardiac Dysrhythmia, Cerebrovascular Disease, Congenital Heart Disease, CHF, Pacemaker, PVD Psychological: History of: Depression No history of: Anxiety Disorders, ADHD, Behavior Problems, Bipolar Disorder, Previous Suicide Attempt, Psychiatric/Substance Abuse Tx, Schizophrenia, Violent Behavior, Psychiatric Problems Neurology: History of: TIA No history of: Brain Aneurysm, Cerebral Hemorrhage, Cerebrovascular Accident , Cerebral Palsy, Dementia, Migraine, Multiple Sclerosis, Parkinson's Disease, Peripheral Neuropathy, Seizures, Vertigo, Neurologocal Cancer HEENT: History of: Eye Problem (NEAR SIGHTED FAR SIGHTED) No history of: Ear Problem, Dental Problems, Glaucoma, Oral Cancer, HEENT Problems Endocrine: History of: Diabetes Mellitus (NIDDM), Thyroid Disorder No history of: Adrenal Disease, Diabetes Mellitus (IDDM), Endocrine Cancer, Endocrine Problems Rheumatology: No history of;: Fibromyalgia, Gout, Myasthenia Gravis, Psoriasis, Rheumatoid Arthritis, Sjogrens, Systemic Lupus Erythematosus, Rheumatological Problems Respiratory: No history of: Asthma, Bronchitis, COPD, Intubation, Obstructive Sleep Apnea (STATES THAT SHE WAS TESTED AT [facility] AND DOESNT HAVE DALLIN), Pulmonary Embolism, Pulmonary Hypertension, Pneumonia, Lung Cancer, Respiratory Problems Renal: History of: Renal Failure, Renal Problems (CKI) No history of: Renal (Kidney) Cancer, Dialysis Genitourinary: History of: Kidney Stones No history of: Bladder Problem, Recurring Urinary Tract Infections, Genitourinary Cancer, Problems Gastrointestinal: History of: Diverticulitis/ Diverticulosis (left-sided diverticulosis), GERD, Gastrointestinal Bleed (multiple small bowel AVMs, or mild gastritis), Polyps (sigmoid hyperplastic polyps), GI Problems No history of: Bowel Obstruction, Clostridium Difficile, Crohn's Disease, Esophageal Varices, Hemorrhoids, Hematochezia, Hepatitis, Liver Problems, Pancreatitis, Ulcerative Colitis, Gastrointestinal Cancer Musculoskeletal: No history of: Amputation, Back/Neck Problems, Degenerative Disk Disease, Herniated Disk, Osteoporosis, Musculoskeletal Cancer, Musculoskeletal Problems Hematology: History of: Anemia No history of: Blood Transfusion Reaction, Bleeding Problems, Clotting Problems, Sickle Cell Disease, Hematologic Cancer, Blood Disorders Reproductive: History of: Reproductive Problems No history of: Abnormal Pap Smear, Breast Cancer, Endometriosis, Ectopic , Ovarian Cysts, Complication, Sexually Transmitted Disorders , Reproductive Cancer Other: No history of: Anesthesia Reactions, Anaphylaxis, Cancer, Eczema, HIV, Malignant Hyperthermia, MRSA, Vancomycin-Resistant Enterococci, Skin Problems, Miscellaneous Medical Problems - Surgical History Cardiac Surgeries: Sugical HX of: Cardiac Catheterization (with stents), Cardiac Surgery (bypass) Patient Denies: Femoral-Popliteal Bypass Graft, Carotid Endarterectomy, Internal Defibrillator, Vascular Access Devices Thoracic Surgeries: Patient denies;: Kidney (Renal Surgery), Lithotripsy, Nephrectomy, Organ Transplant, Lobectomy Neurologic Surgeries: Patient denies: Brain Aneurysm, Cerebral Hemorrhage, Neurologic Surgery HEENT Surgeries: Patient denies: Carotid Endarterectomy, Eye Surgery, Thyroid Surgery, Tonsilectomy & Adenoidectomy Abdominal Surgeries: Surgical HX of: Colonoscopy, EGD Patient denies: Abdominal Surgery, Appendectomy, Cholecystectomy, Gastric Bypass Surgery, Hernia Repair, Splenectomy Reproductive Surgeries: Surgical HX of;: Gynecologic Surgery, Hysterectomy Patient denies;: Breast Surgery, Section, Cystoscopy, Dilation and Curettage, Genitourinary Surgery, Tubal Ligation Orthopedic Surgeries: Patient denies;: Implanted Devices, Orthopedic Surgery, Spinal Surgery, Total Hip Replacement, Total Knee Replacement - Family History Family History: Reports;: Family Cancer (MOTHER CERVICAL), Family Stroke (FATHER ) Denies;: Family Anesthesia Reaction, Family Diabetes, Family Heart Disease, Family Hypertension, Family Psychiatric Problems - Social History Smoking Status: Current every day smoker Frequency of Alcohol Use: None Type of Drug Use: None Exam - Constitutional Vitals: Period Temp Pulse Resp BP Sys/Eli Pulse Ox Last 24 Hr 96.6 F-98.9 F 72-102 15-20 116-159/53-97 93-100 Results - Labs CBC & BMP: 02/27/17 02:57 02/27/17 02:57 Specialty Discharge - Follow Up or Referrals Follow up with: Ravindra Alcazar MD [Physician] -
--- NOTE | 2017-02-25 13:46 | Physician Query Form ---
CLICK EDIT DOCUMENT TO SELECT QUERY ANSWER --> OK --> SIGN PROVIDERS: Make your selection(s) from the choices in EACH section by typing an "x" and enter comments in the comment section. Please use your independent medical judgment in providing your response. This request does not imply that any particular answer is desired or expected. CLINICAL INDICATORS: (Providers should not edit this section) The medical record indicates that the patient has a history of breast cancer, mastectomy was done, hx of CKD Stage II, on the : "Creatinine slightly up today", creatinine of 2.10 on the and then on the " Creatinine returned to 1.8, this is her baseline.---patient on /2 NS 50 ml/hour Clarify which of the following most accurately represents the patient's renal status: ( ) treated or monitored for acute on chronic renal failure --- STAGE II ( x) treated or monitored for chronic renal failure only --- STAGE II ( ) Other, please specify: ( ) Clinically unable to determine COMMENTS: PLEASE ALSO DOCUMENT RESPONSE IN PROGRESS NOTES AND/OR DISCHARGE SUMMARY Use of terms such as suspected, likely, or probable (associated with a specific diagnosis that is being evaluated, monitored, or treated as if it exists) are acceptable and can be restated in the discharge summary if not ruled out. MTDD
--- NOTE | 2017-02-25 17:06 | General Surgery Progress Note ---
Assessment and Plan - Time spent with patient Time spent discussing smoking cessation with patient: 3 to 10 minutes (1) Breast cancer Status: Acute Assessment and plan: recovering well from mastectomy....will not use pain meds....I encouraged pain med use coumadin restarted thursday, INR still subtherapeutic....cont heparin for now...may need higher dose? Hematocrit Stable Current Visit: Yes Qualifiers: Patient sex: female Laterality: left Subjective Patient reports: Present: still having pain Exam - Constitutional Vitals: Period Temp Pulse Resp BP Sys/Eli Pulse Ox Last 24 Hr 97.1 F-98.9 F 71-102 15-20 116-161/52-93 85-100 - Respiratory Respiratory exam: Present: other (breathing easily) - Breasts Breasts: other (no hematoma or swelling...drain outputs serous to serosanguinous ) Results - Labs CBC & BMP: 02/25/17 04:55 02/25/17 04:55 Specialty Discharge - Follow Up or Referrals Follow up with: Ravindra Alcazar MD [Physician] -
--- NOTE | 2017-02-25 17:36 | Cardiology Progress Note ---
Scotty James Lesley, NP, am scribing for, and in the presence of, Sherrie Armstrong MD 17:36. Assessment and Plan - Time spent with patient Time spent with patient: Greater than 30 minutes (Examination, documentation and record review) (1) Breast cancer Status: Acute Assessment and plan: SEE LIST IN PLAN OF CARE BELOW Current Visit: Yes Qualifiers: Patient sex: female Laterality: left (2) Anemia Status: Chronic Assessment and plan: SEE LIST IN PLAN OF CARE BELOW Current Visit: No (3) CKD (chronic kidney disease) stage 2, GFR 60-89 ml/min Status: Chronic Assessment and plan: SEE LIST IN PLAN OF CARE BELOW Current Visit: No (4) Congestive heart failure Status: Chronic Assessment and plan: SEE LIST IN PLAN OF CARE BELOW Current Visit: No (5) Coronary artery disease Status: Chronic Assessment and plan: SEE LIST IN PLAN OF CARE BELOW Current Visit: No (6) History of heart valve replacement with mechanical valve Status: Chronic Assessment and plan: SEE LIST IN PLAN OF CARE BELOW Current Visit: No (7) Hypertension Status: Chronic Current Visit: No (8) Chronic anticoagulation Status: Chronic Current Visit: No Cardiology - PN: Subj Interval history: MAINFRAME SYSTEMS ADMINISTRATOR: DR. 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 Yañez is a 66 BF, with a history of DM type II, hypertension , CAD status post CABG, stent placement, dyslipidemia, obesity, MECHANICAL MITRAL VALVE REPLACEMENT, chronic anticoagulation, iron deficiency anemia, chronic renal insufficiency, smoker, chronic angina. Severe ischemic cardiomyopathy with EF 20%. February 20, 2017, underwent left modified radical mastectomy with sentinel node dissection of the left axilla. She was transferred to ICU postoperatively to monitor respiratory status and maintained on BiPap machine. Heparin infusion protocol restarted postsurgery for mechanical mitral valve. Coumadin was restarted on February 20, 2017, however Heparin gtt was held 02/21/17 due to significant bleeding from surgical site. As patient stabilized hemodynamically, Heparin infusion was restarted and plan to continue until INR is around 2. Patient has received Coumadin 2 mg daily for 2 days, and will continue Coumadin 1 mg daily, as this is her usual dose. Creatinine slightly elevated, his low-dose PRINCESS inhibitor held. FEBRUARY 23, 2017: Patient did well overnight. She is complaining of significant soreness to the left mastectomy site and with movement of left arm. INR 1.2, would continue daily Coumadin at 1 mg given the patient's low hemoglobin and hematocrit. Creatinine returned to 1.8, this is her baseline. Her blood pressure is stable 148/66, heart rate noted at 80 bpm. FEBRUARY 24, 2017: Patient is sitting up on the side of the bed eating breakfast. Vital signs have remained stable overnight, blood pressure 142/59, heart rate 70s-90s. Hemoglobin and hematocrit stable, however 7 and 23. INR continues to be subtherapeutic at 1.2, PT 12.5, and PTT 64.1. Creatinine is stable at 1.6. The plan today is to transfuse the patient with 2 units of PRBCs. Surgical incision with soreness and dressing intact, if I's and O's accurate, SAURAV drainage is significantly less. I asked the patient repeatedly yesterday to verify her Coumadin dosing of 1 mg, and she had family present today as well that also "verified" at that with the dosage she takes. However, when we called the pharmacy, they tell us that the only dose that has been filled in anytime recently as a 5 mg dose. Accordingly we are going to adjust her dosage. February 25, 2017: Patient lying in bed without complaints. Vital signs reviewed and remain stable. Hemoglobin and hematocrit responded well to transfusion, 8.9 and 28.5 respectively. INR remains 1.1 with heparin infusion protocol. Creatinine 1.6 BUN 24. Reviewed oncology notes. ASSESSMENT/PLAN: 1. LEFT BREAST MALIGNANCY - status post left mastectomy 2. KNOWN CAD (previous CABG and stent placement) - continue home medication and monitor closely. Clinically this appears to be stable. 3. HYPERTENSION - continue beta-sharona, PRINCESS inhibitor. Adjust medications accordingly during the hospital stay. 4. IRON DEFICIENCY ANEMIA -chronic, however hemoglobin and hematocrit 8.9 and 28.5 post transfusion. Continue heparin and increase warfarin. INR and CBC daily. 5. TOBACCO ABUSE - the merits of smoking cessation have been discussed greater than 5 minutes. 6. MECHANICAL MITRAL VALVE REPLACEMENT -continue heparin protocol, daily INR still subtherapeutic. Despite us confirming her warfarin dosing both with the patient and her family, there was some confusion as they are believed she was only taking 1 mg daily at home. After calling the pharmacy and verifying that she was actually receiving 5 mg, we increased to this last night. We will continue to monitor this although it may be another couple of days before we see an improvement in her INR. 7. DIABETES TYPE 2 - continue Accu-Cheks, sliding scale. 8 ISCHEMIC CARDIOMYOPATHY - EF 20%, continue current plan of care. 9. CHF - Acute on chronic CHF secondary to systolic dysfunction (EF 20%) and diastolic dysfunction, NYHA Class II-III. Exam (Progress Note) - Constitutional Vitals: Period Temp Pulse Resp BP Sys/Eli Pulse Ox Last 24 Hr 97.2 F-98.9 F 71-102 15-20 116-159/52-93 85-100 Exam: General: Patient is no apparent distress. Pleasant and cooperative. Appears comfortable. HEENT: PERRL, normocephalic, atraumatic. Mucous membranes moist. No jaundice noted. Conjunctiva moist and clear, sclerae anicteric. Neck: No JVD/HJR, no thyromegaly or lymphadenopathy noted. Cardiac: Regular rate and rhythm, mechanical S2. No murmur rub or gallop. PMI is nondisplaced. Lungs: Essentially clear to auscultation, Rales noted to bilateral bases without accessory muscle use to assist the respiratory pattern. Abdomen: Soft, bowel sounds normoactive. Nontender and nondistended. No abdominal bruit or thrill noted. No masses noted. Musculoskeletal: No fluid collection. Normal range of motion is noted while lying in bed. Dressing intact to left chest wall, SAURAV drain X 2, small amount of serosanguineous drainage noted. tenderness to palpation. Extremities: No clubbing, cyanosis noted. Mild bilateral lower extremity edema noted. Upper extremity pulses 2+. Lower extremity pulses 2+. Capillary refill less than 3 seconds. Skin: No unusual lesions or rashes. No skin breakdown appreciated. Neuro: Awake, alert and oriented 3. Moves all extremities well without hemiparesis or paralysis. No essential tremor is appreciated. Result/EKG - Labs CBC & BMP: 02/25/17 04:55 02/25/17 04:55 Lab Results: I have reviewed the past 24 hour labs Labs: Laboratory Results - last 24 hr 02/24/17 02/24/17 02/24/17 07:47 15:44 20:36 WBC RBC Hgb Hct MCV MCH MCHC RDW Plt Count MPV Neut % (Auto) Lymph % (Auto) Boundary % (Auto) Eos % (Auto) Baso % (Auto) Neut # (Auto) Lymph # (Auto) Boundary # (Auto) Eos # (Auto) Baso # (Auto) Immature Gran % Nucleated RBC % Immature Gran # Nucleated RBCs # Immature Plt Fraction INR PT Patient/Control Mix Circ Anticoag PTT Sodium Potassium Chloride Carbon Dioxide Anion Gap BUN Creatinine GFR Calculation BUN/Creatinine Ratio Glucose POC Glucose 164 H 154 H Calculated Osmolality Calcium Blood Type A POSITIVE Antibody Screen Negative Crossmatch See Detail 02/25/17 02/25/17 02/25/17 04:55 04:55 04:55 WBC 5.6 RBC 3.33 L D Hgb 8.9 L D Hct 28.5 L MCV 85.6 L MCH 27 MCHC 31.2 L RDW 18.7 H Plt Count 192 MPV 12.5 H Neut % (Auto) 72.3 Lymph % (Auto) 12.1 L Boundary % (Auto) 10.8 Eos % (Auto) 4.1 Baso % (Auto) 0.2 Neut # (Auto) 4.1 Lymph # (Auto) 0.7 L Boundary # (Auto) 0.6 Eos # (Auto) 0.2 Baso # (Auto) 0.0 Immature Gran % 0.5 Nucleated RBC % 0.0 Immature Gran # 0.03 Nucleated RBCs # 0.00 Immature Plt Fraction 0.0 INR 1.1 PT Patient/Control Mix 12.1 Circ Anticoag PTT Sodium 140 Potassium 4.2 Chloride 101 Carbon Dioxide 33 H Anion Gap 10.2 BUN 24 H Creatinine 1.60 H GFR Calculation 44 BUN/Creatinine Ratio 15.00 Glucose 104 POC Glucose Calculated Osmolality 282.4 Calcium 8.5 Blood Type Antibody Screen Crossmatch 02/25/17 02/25/17 02/25/17 07:21 11:02 12:37 WBC RBC Hgb Hct MCV MCH MCHC RDW Plt Count MPV Neut % (Auto) Lymph % (Auto) Boundary % (Auto) Eos % (Auto) Baso % (Auto) Neut # (Auto) Lymph # (Auto) Boundary # (Auto) Eos # (Auto) Baso # (Auto) Immature Gran % Nucleated RBC % Immature Gran # Nucleated RBCs # Immature Plt Fraction INR PT Patient/Control Mix Circ Anticoag PTT 49.2 H D Sodium Potassium Chloride Carbon Dioxide Anion Gap BUN Creatinine GFR Calculation BUN/Creatinine Ratio Glucose POC Glucose 135 H 172 H Calculated Osmolality Calcium Blood Type Antibody Screen Crossmatch Specialty Discharge - Follow Up or Referrals Follow up with: Ravindra Alcazar MD [Physician] - I, Sherrie Armstrong MD, personally performed the services described in this documentation, ascribed by Bettina Fajardo NP in my presence, and it is both accurate and complete 736 .
[2017-02-25] MEDS: WARFARIN 5 MG TABLET PO SCH (18:36)
[2017-02-25] MEDS: AMITRIPTYLINE 25 MG TABLET PO SCH (20:23)
[2017-02-25] MEDS: ENOXAPARIN 80 MG/0.8 ML SYRINGE SUBCUT SCH (22:08)
[2017-02-26 06:07] LABS: Basophils % 0.4 % (0.0-0.8); Eosinophils # 0.3 10*3/uL (0.0-0.87); Eosinophils % 5.3 % (0.00-10.9); Hematocrit 28.1 VOL% (35.7-47.0); Hemoglobin 8.7 GM/DL (12.0-16.0); Immature Granulocytes % 0.4 %; Immature Granulocytes Absolute 0.02 #; Lymphocytes # 0.6 10*3/uL (1.4-4.0); Lymphocytes % 12.1 % (21.3-54.2); Mean Corpuscular Hemoglobin 26 PG (27-34); Mean Corpuscular Volume 85.2 FL (87-102); Monocytes # 0.6 10*3/uL (0.11-0.8); Monocytes % 13.6 % (1.7-12.7); Neutrophils # 3.2 10*3/uL (1.4-7.4); Neutrophils % 68.2 % (38.7-73.9); Platelet Count 185 T/CUMM (130-400); Red Cell Distribution Width 18.9 % (9.3-17.3); White Blood Count 4.7 T/CUMM (4-12)
[2017-02-26 06:23] LABS: INR 1.2; PT Patient Result 12.7 SECS
[2017-02-26 06:40] LABS: Calcium 8.4 MG/DL (8.5-10.1); Osmolality,Calculated 285.3 MOS/KG (273-304); Potassium 4.4 MMOL/L (3.5-5.1)
[2017-02-26] MEDS: INSULIN REGULAR 100 UNIT/ML SUBCUT SCH ×4 (06:43→20:54)
[2017-02-26] MEDS: ALBUTEROL/IPRATROPIUM 3 ML NEB RESP TX SCH ×3 (07:03→19:28)
[2017-02-26] MEDS: ISOSORBIDE MONONITRATE 60 MG TABLET PO SCH (08:21)
[2017-02-26] MEDS: ATORVASTATIN 80 MG TABLET PO SCH (08:21)
[2017-02-26] MEDS: POTASSIUM CHLORIDE 10 MEQ TABLET PO SCH ×3 (08:21→17:19)
[2017-02-26] MEDS: hydrALAZINE 25 MG TABLET PO SCH ×2 (08:21→20:55)
[2017-02-26] MEDS: CARVEDILOL 25 MG TABLET PO SCH ×2 (08:21→20:55)
[2017-02-26] MEDS: chlordiazePOXIDE 10 MG CAPSULE PO SCH (08:21)
[2017-02-26] MEDS: PANTOPRAZOLE 40 MG TABLET PO SCH (08:21)
[2017-02-26] MEDS: FUROSEMIDE 80 MG TABLET PO SCH (08:21)
[2017-02-26] MEDS: ENOXAPARIN 80 MG/0.8 ML SYRINGE SUBCUT SCH ×2 (09:00→23:07)
--- NOTE | 2017-02-26 09:41 | Oncology Progress Note ---
Oncology Subjective PN Interval history: ER/AL status pending. This patient has [employer], which covers her treatment well in [place], but not in [place]. She will need to be referred to an oncologist in [place] for follow-up. Exam - Constitutional Vitals: Period Temp Pulse Resp BP Sys/Eli Pulse Ox Last 24 Hr 97.1 F-98.9 F 71-102 15-163 122-161/52-80 85-100 Results - Labs CBC & BMP: 02/26/17 05:28 02/26/17 05:27 Specialty Discharge - Follow Up or Referrals Follow up with: Ravindra Alcazar MD [Physician] -
[2017-02-26] MEDS: WARFARIN 5 MG TABLET PO SCH (17:19)
[2017-02-26] MEDS: ACETAMINOPHEN 325 MG TABLET PO PRN (17:22)
--- NOTE | 2017-02-26 18:07 | Discharge Summary ---
Hospital Course - Hospital Course Hospital Course: admitted following lymphoscintogram for heparin drip prior to MRM. MRM on ... went to [facility] for dyspnea, postop. cardiology followed during hospitalization. heparin gtt resumed 12 hours postop. transferred to floor pod #2. diet and activity advanced. INR not therapeutic, so dose increased. Lovenox started last night. Able to go home on lovenox, and asking to go home. will d/c tonight, if ride available. Diagnosis - Discharge Diagnosis (1) Breast cancer Status: Acute Specialty Discharge - Follow Up or Referrals Follow up with: Ravindra Alcazar MD [Physician] - Discharge Plan - Discharge Data Disposition: Disch To Home/Self Care Condition at Discharge: Stable Discharge Diet: advance to your usual diet Activity: resume usual activities as tolerated - Discharge Medications No Action Isosorbide Mononitrate [Isosorbide Mononitrate ER] 60 mg PO DAILY Ferrous Sulfate Tab [Feosol Original Tab] 325 mg PO QOTHER DAY Carvedilol [Coreg] 25 mg PO BID Amitriptyline [Elavil] 25 mg PO DAILY chlordiazePOXIDE [Librium] 10 mg PO DAILY hydrALAZINE TAB [Apresoline Tab] 25 mg PO BID sitaGLIPtin [Januvia] 25 mg PO DAILY Pantoprazole Tab [Protonix Tab] 40 mg PO DAILY Albuterol/Ipratropium Neb [Duoneb] 3 ml RESP TX TID Potassium Chloride 10 meq PO TID W/MEALS Warfarin [Coumadin] 1 mg PO DAILY@1800 Amlodipine Besylate 5 mg PO DAILY Furosemide Tab [Lasix Tab] 40 mg PO DAILY - Follow Up or Referral Follow Up: Ravindra Alcazar MD [Physician] - - Forms/Instructions Exam - Constitutional Vitals: Period Temp Pulse Resp BP Sys/Eli Pulse Ox Last 24 Hr 97.9 F-98.9 F 72-102 15-163 126-158/62-79 90-100 General appearance: no acute distress - Skin Skin exam: Present: other (no hematoma or tenderness; vee #2 20 cc today; vee # 1 75cc) Discharge Results Procedures and tests throughout hospitalization: Pending Orders 02/27/17 04:00 BMP w/ Mg [Basic Metabolic Panel w/Mg] IN AM CBC [Comp Blood Count Auto Diff] IN AM Prothrombin Time INR IN AM 02/28/17 04:00 Prothrombin Time INR IN AM 03/01/17 04:00 Prothrombin Time INR IN AM 03/02/17 04:00 Prothrombin Time INR IN AM Labs on day of discharge: Labs from last 24 hours 02/26/17 02/26/17 02/26/17 16:41 11:05 07:02 WBC RBC Hgb Hct MCV MCH MCHC RDW Plt Count MPV Neut % (Auto) Lymph % (Auto) Worth % (Auto) Eos % (Auto) Baso % (Auto) Neut # (Auto) Lymph # (Auto) Worth # (Auto) Eos # (Auto) Baso # (Auto) Immature Gran % Nucleated RBC % Immature Gran # Nucleated RBCs # Immature Plt Fraction INR PT Patient/Control Mix Circ Anticoag PTT Sodium Potassium Chloride Carbon Dioxide Anion Gap BUN Creatinine GFR Calculation BUN/Creatinine Ratio Glucose POC Glucose 100 211 H 172 H Calculated Osmolality Calcium 02/26/17 02/26/17 02/26/17 05:28 05:27 05:27 WBC 4.7 RBC 3.30 L Hgb 8.7 L Hct 28.1 L MCV 85.2 L MCH 26 L MCHC 31.0 L RDW 18.9 H Plt Count 185 MPV 12.0 Neut % (Auto) 68.2 Lymph % (Auto) 12.1 L Worth % (Auto) 13.6 H Eos % (Auto) 5.3 Baso % (Auto) 0.4 Neut # (Auto) 3.2 Lymph # (Auto) 0.6 L [place] # (Auto) 0.6 Eos # (Auto) 0.3 Baso # (Auto) 0.0 Immature Gran % 0.4 Nucleated RBC % 0.0 Immature Gran # 0.02 Nucleated RBCs # 0.00 Immature Plt Fraction 0.0 INR 1.2 PT Patient/Control Mix 12.7 Circ Anticoag PTT Sodium 141 Potassium 4.4 Chloride 102 Carbon Dioxide 32 Anion Gap 11.4 BUN 21 H Creatinine 1.60 H GFR Calculation 44 BUN/Creatinine Ratio 13.00 Glucose 140 H POC Glucose Calculated Osmolality 285.3 Calcium 8.4 L 02/25/17 02/25/17 21:25 20:57 WBC RBC Hgb Hct MCV MCH MCHC RDW Plt Count MPV Neut % (Auto) Lymph % (Auto) Worth % (Auto) Eos % (Auto) Baso % (Auto) Neut # (Auto) Lymph # (Auto) Worth # (Auto) Eos # (Auto) Baso # (Auto) Immature Gran % Nucleated RBC % Immature Gran # Nucleated RBCs # Immature Plt Fraction INR PT Patient/Control Mix Circ Anticoag PTT 38.0 D Sodium Potassium Chloride Carbon Dioxide Anion Gap BUN Creatinine GFR Calculation BUN/Creatinine Ratio Glucose POC Glucose 154 H Calculated Osmolality Calcium DS: Provider Date of admission: 02/19/17 09:30 Primary care physician: Froylan Monet Attending physician on admission: Ravindra Alcazar MD Consults: 02/19/17 10:57 Consult to Physician [CONS] Routine Comment: KNOWN TO YOUR Consulting Provider: Henrik Gant Consulting Provider Notified: Yes When should Consulting Provider be notified: Now Consult to Specialist Group: Cardiology When should Consulting Provider be notified: Now Person Notified: TIA Date Notified: 02/19/17 Time Notified: 10:58 02/20/17 11:25 Consult to Physician [CONS] Routine Comment: Consulting Provider: Consulting Provider Notified: Yes Consult to Specialist Group: Cardiology When should Consulting Provider be notified: Now Person Notified: DR. GANT Date Notified: 02/20/17 Time Notified: 11:05 Consult Notification Comment: DR GANT OFFICE NOTIFIED SPOKE WITH AVE AT 1105 02/24/17 16:08 Consult to Physician [CONS] Routine Comment: No positive Breast Cancer Consulting Provider: Jesus Keenan Consulting Provider Notified: Yes When should Consulting Provider be notified: Now Consult to Specialist Group: Oncology When should Consulting Provider be notified: Now Person Notified: Allie castañeda Date Notified: 02/24/17 Time Notified: 16:12 Discharging clinician: Ravindra Alcazar MD Expected date of discharge: 02/26/17
--- NOTE | 2017-02-26 18:15 | Cardiology Progress Note ---
Scotty James Lesley, NP, am scribing for, and in the presence of, Sherrie Armstrong MD 18:14. Assessment and Plan (1) Breast cancer Status: Acute Assessment and plan: SEE LIST IN PLAN OF CARE BELOW Current Visit: Yes Qualifiers: Patient sex: female Laterality: left (2) Anemia Status: Chronic Assessment and plan: SEE LIST IN PLAN OF CARE BELOW Current Visit: No (3) CKD (chronic kidney disease) stage 2, GFR 60-89 ml/min Status: Chronic Assessment and plan: SEE LIST IN PLAN OF CARE BELOW Current Visit: No (4) Congestive heart failure Status: Chronic Assessment and plan: SEE LIST IN PLAN OF CARE BELOW Current Visit: No (5) Coronary artery disease Status: Chronic Assessment and plan: SEE LIST IN PLAN OF CARE BELOW Current Visit: No (6) History of heart valve replacement with mechanical valve Status: Chronic Assessment and plan: SEE LIST IN PLAN OF CARE BELOW Current Visit: No (7) Hypertension Status: Chronic Current Visit: No (8) Chronic anticoagulation Status: Chronic Current Visit: No Cardiology - PN: Subj Interval history: CLIENT SUPPORT REPRESENTATIVE: DR. 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 Yañez is a 66 BF, with a history of DM type II, hypertension , CAD status post CABG, stent placement, dyslipidemia, obesity, MECHANICAL MITRAL VALVE REPLACEMENT, chronic anticoagulation, iron deficiency anemia, chronic renal insufficiency, smoker, chronic angina. Severe ischemic cardiomyopathy with EF 20%. February 20, 2017, underwent left modified radical mastectomy with sentinel node dissection of the left axilla. She was transferred to ICU postoperatively to monitor respiratory status and maintained on BiPap machine. Heparin infusion protocol restarted postsurgery for mechanical mitral valve. Coumadin was restarted on February 20, 2017, however Heparin gtt was held 02/21/17 due to significant bleeding from surgical site. As patient stabilized hemodynamically, Heparin infusion was restarted and plan to continue until INR is around 2. Patient has received Coumadin 2 mg daily for 2 days, and will continue Coumadin 1 mg daily, as this is her usual dose. Creatinine slightly elevated, his low-dose PRINCESS inhibitor held. The patient was transfused with 2u PRBCs. The patient was repeatedly asked to confirm Coumadin dose of 1 mg, and she had family present today as well that also "verified" at that with the dosage she takes. However, when we called the pharmacy, they tell us that the only dose that has been filled in anytime recently as a 5 mg dose. We adjusted the dose accordingly. February 26, 2017 Update: Patient sitting up in chair and continued on heparin infusion protocol. INR is 1.2, hemoglobin and hematocrit stable at 8.7 and 28. Creatinine stable at 1.6. Continue Coumadin 5 mg and repeat CBC and INR daily. Will likely be another couple of days before her INR responds to the increase in Coumadin. ASSESSMENT/PLAN: 1. LEFT BREAST MALIGNANCY - status post left mastectomy 2. KNOWN CAD (previous CABG and stent placement) - continue home medication and monitor closely. Clinically this appears to be stable. 3. HYPERTENSION - continue beta-sharona, PRINCESS inhibitor. Adjust medications accordingly during the hospital stay. 4. IRON DEFICIENCY ANEMIA -chronic, however hemoglobin and hematocrit 8.9 and 28.5 post transfusion. Continue heparin and increase warfarin. INR and CBC daily. 5. TOBACCO ABUSE - the merits of smoking cessation have been discussed greater than 5 minutes. 6. MECHANICAL MITRAL VALVE REPLACEMENT -continue heparin protocol, daily INR still subtherapeutic. Despite us confirming her warfarin dosing both with the patient and her family, there was some confusion as they are believed she was only taking 1 mg daily at home. After calling the pharmacy and verifying that she was actually receiving 5 mg, we increased to this last night. 7. DIABETES TYPE 2 - continue Accu-Cheks, sliding scale. 8 ISCHEMIC CARDIOMYOPATHY - EF 20%, continue current plan of care. 9. CHF - Acute on chronic CHF secondary to systolic dysfunction (EF 20%) and diastolic dysfunction, NYHA Class II-III. Exam (Progress Note) - Constitutional Vitals: Period Temp Pulse Resp BP Sys/Eli Pulse Ox Last 24 Hr 97.1 F-98.9 F 71-102 15-163 130-161/69-80 85-100 Exam: General: Patient is no apparent distress. Pleasant and cooperative. Appears comfortable. HEENT: PERRL, normocephalic, atraumatic. Mucous membranes moist. No jaundice noted. Conjunctiva moist and clear, sclerae anicteric. Neck: No JVD/HJR, no thyromegaly or lymphadenopathy noted. Cardiac: Regular rate and rhythm, mechanical S2. No murmur rub or gallop. PMI is nondisplaced. Lungs: Essentially clear to auscultation, diminished throughout without accessory muscle use to assist the respiratory pattern. Abdomen: Soft, bowel sounds normoactive. Nontender and nondistended. No abdominal bruit or thrill noted. No masses noted. Musculoskeletal: No fluid collection. Normal range of motion is noted while lying in bed. Dressing intact to left chest wall, SAURAV drain X 2, small amount of serosanguineous drainage noted. Tenderness to palpation. Extremities: No clubbing, cyanosis noted. Mild bilateral lower extremity edema noted. Upper extremity pulses 2+. Lower extremity pulses 2+. Capillary refill less than 3 seconds. Skin: No unusual lesions or rashes. No skin breakdown appreciated. Neuro: Awake, alert and oriented 3. Moves all extremities well without hemiparesis or paralysis. No essential tremor is appreciated. Result/EKG - Labs CBC & BMP: 02/26/17 05:28 02/26/17 05:27 Lab Results: I have reviewed the past 24 hour labs Labs: Laboratory Results - last 24 hr 02/25/17 02/25/17 02/25/17 11:02 12:37 15:32 WBC RBC Hgb Hct MCV MCH MCHC RDW Plt Count MPV Neut % (Auto) Lymph % (Auto) Bureau % (Auto) Eos % (Auto) Baso % (Auto) Neut # (Auto) Lymph # (Auto) Bureau # (Auto) Eos # (Auto) Baso # (Auto) Immature Gran % Nucleated RBC % Immature Gran # Nucleated RBCs # Immature Plt Fraction INR PT Patient/Control Mix Circ Anticoag PTT 49.2 H D 55.3 H Sodium Potassium Chloride Carbon Dioxide Anion Gap BUN Creatinine GFR Calculation BUN/Creatinine Ratio Glucose POC Glucose 172 H Calculated Osmolality Calcium 02/25/17 02/25/17 02/25/17 16:45 20:57 21:25 WBC RBC Hgb Hct MCV MCH MCHC RDW Plt Count MPV Neut % (Auto) Lymph % (Auto) Bureau % (Auto) Eos % (Auto) Baso % (Auto) Neut # (Auto) Lymph # (Auto) Bureau # (Auto) Eos # (Auto) Baso # (Auto) Immature Gran % Nucleated RBC % Immature Gran # Nucleated RBCs # Immature Plt Fraction INR PT Patient/Control Mix Circ Anticoag PTT 38.0 D Sodium Potassium Chloride Carbon Dioxide Anion Gap BUN Creatinine GFR Calculation BUN/Creatinine Ratio Glucose POC Glucose 140 H 154 H Calculated Osmolality Calcium 02/26/17 02/26/17 02/26/17 05:27 05:27 05:28 WBC 4.7 RBC 3.30 L Hgb 8.7 L Hct 28.1 L MCV 85.2 L MCH 26 L MCHC 31.0 L RDW 18.9 H Plt Count 185 MPV 12.0 Neut % (Auto) 68.2 Lymph % (Auto) 12.1 L Bureau % (Auto) 13.6 H Eos % (Auto) 5.3 Baso % (Auto) 0.4 Neut # (Auto) 3.2 Lymph # (Auto) 0.6 L Bureau # (Auto) 0.6 Eos # (Auto) 0.3 Baso # (Auto) 0.0 Immature Gran % 0.4 Nucleated RBC % 0.0 Immature Gran # 0.02 Nucleated RBCs # 0.00 Immature Plt Fraction 0.0 INR 1.2 PT Patient/Control Mix 12.7 Circ Anticoag PTT Sodium 141 Potassium 4.4 Chloride 102 Carbon Dioxide 32 Anion Gap 11.4 BUN 21 H Creatinine 1.60 H GFR Calculation 44 BUN/Creatinine Ratio 13.00 Glucose 140 H POC Glucose Calculated Osmolality 285.3 Calcium 8.4 L 02/26/17 02/26/17 07:02 11:05 WBC RBC Hgb Hct MCV MCH MCHC RDW Plt Count MPV Neut % (Auto) Lymph % (Auto) Bureau % (Auto) Eos % (Auto) Baso % (Auto) Neut # (Auto) Lymph # (Auto) Bureau # (Auto) Eos # (Auto) Baso # (Auto) Immature Gran % Nucleated RBC % Immature Gran # Nucleated RBCs # Immature Plt Fraction INR PT Patient/Control Mix Circ Anticoag PTT Sodium Potassium Chloride Carbon Dioxide Anion Gap BUN Creatinine GFR Calculation BUN/Creatinine Ratio Glucose POC Glucose 172 H 211 H Calculated Osmolality Calcium Specialty Discharge - Follow Up or Referrals Follow up with: Ravindra Alcazar MD [Physician] - Nathaniel James Jennifer, MD, personally performed the services described in this documentation, ascribed by Bettina Fajardo NP in my presence, and it is both accurate and complete 815 .
[2017-02-26] MEDS: AMITRIPTYLINE 25 MG TABLET PO SCH (20:55)
[2017-02-27] MEDS: HEPARIN DRIP 25,000 UNITS/500 ML PREMIX IV SCH ×3 (02:15→22:45)
[2017-02-27 03:05] LABS: Basophils % 0.4 % (0.0-0.8); Eosinophils # 0.4 10*3/uL (0.0-0.87); Eosinophils % 6.5 % (0.00-10.9); Hematocrit 29.1 VOL% (35.7-47.0); Hemoglobin 9.2 GM/DL (12.0-16.0); Immature Granulocytes % 0.4 %; Immature Granulocytes Absolute 0.02 #; Lymphocytes % 17.3 % (21.3-54.2); Mean Corpuscular HGB Conc 31.6 GM/DL (32-36); Mean Corpuscular Hemoglobin 27 PG (27-34); Mean Corpuscular Volume 85.1 FL (87-102); Monocytes # 0.6 10*3/uL (0.11-0.8); Monocytes % 11.2 % (1.7-12.7); Neutrophils # 3.6 10*3/uL (1.4-7.4); Neutrophils % 64.2 % (38.7-73.9); Platelet Count 216 T/CUMM (130-400); Red Blood Count 3.42 MC/CUMM (3.8-5.5); Red Cell Distribution Width 18.7 % (9.3-17.3); White Blood Count 5.6 T/CUMM (4-12)
[2017-02-27 03:24] LABS: INR 1.3; PT Patient Result 14.1 SECS
[2017-02-27 04:11] LABS: Calcium 8.3 MG/DL (8.5-10.1); Magnesium 1.6 MG/DL (1.8-2.4); Osmolality,Calculated 280.5 MOS/KG (273-304); Potassium 4.3 MMOL/L (3.5-5.1)
[2017-02-27] MEDS: ALBUTEROL/IPRATROPIUM 3 ML NEB RESP TX SCH ×3 (07:31→21:00)
[2017-02-27] MEDS: INSULIN REGULAR 100 UNIT/ML SUBCUT SCH ×4 (09:45→20:29)
[2017-02-27] MEDS: FUROSEMIDE 80 MG TABLET PO SCH (11:06)
[2017-02-27] MEDS: POTASSIUM CHLORIDE 10 MEQ TABLET PO SCH ×3 (11:07→17:56)
[2017-02-27] MEDS: ATORVASTATIN 80 MG TABLET PO SCH (11:07)
[2017-02-27] MEDS: FERROUS SULFATE 325 MG TABLET PO SCH (11:07)
[2017-02-27] MEDS: hydrALAZINE 25 MG TABLET PO SCH ×2 (11:11→20:24)
[2017-02-27] MEDS: CARVEDILOL 25 MG TABLET PO SCH ×2 (11:11→20:24)
[2017-02-27] MEDS: ISOSORBIDE MONONITRATE 60 MG TABLET PO SCH (11:11)
[2017-02-27] MEDS: PANTOPRAZOLE 40 MG TABLET PO SCH (11:11)
[2017-02-27] MEDS: chlordiazePOXIDE 10 MG CAPSULE PO SCH (11:12)
[2017-02-27] MEDS: ENOXAPARIN 80 MG/0.8 ML SYRINGE SUBCUT SCH (11:13)
--- NOTE | 2017-02-27 13:54 | General Surgery Progress Note ---
Assessment and Plan - Time spent with patient Time spent discussing smoking cessation with patient: 3 to 10 minutes (1) Breast cancer Status: Acute Assessment and plan: recovering well from mastectomy. INR still subtherapeutic....cont heparin for now Hematocrit Stable Current Visit: Yes Qualifiers: Patient sex: female Laterality: left Subjective Patient reports: Present: no new complaints Exam - Constitutional Vitals: Period Temp Pulse Resp BP Sys/Eli Pulse Ox Last 24 Hr 97.4 F-98.3 F 74-98 16-20 126-163/62-93 97-100 - Breasts Breasts: other (vee drain serous, outputs still >30cc per 24 hours) Results - Labs CBC & BMP: 02/27/17 02:57 02/27/17 02:57 Lab Results: I have reviewed the past 24 hour labs Labs: INR 1.3 today Specialty Discharge - Follow Up or Referrals Follow up with: Ravindra Alcazar MD [Physician] -
--- NOTE | 2017-02-27 15:53 | Cardiology Progress Note ---
Vicki James April RN, am scribing for, and in the presence of, Sherrie Armstrong MD 15:53. Assessment and Plan (1) Breast cancer Status: Acute Current Visit: Yes Qualifiers: Patient sex: female Laterality: left (2) Congestive heart failure Status: Chronic Current Visit: No (3) Iron deficiency anemia Problem details: The patient has small bowel AVMs-- these could be treated if the patient was kept off her anticoagulation briefly by double balloon endoscopy done either [facility] or [facility]. This would have to be done as an outpatient at some point, in between transfusions, off of anticoagulation completely for a chance of success, or at least decreased transfusion requirements. Further evaluation with endoscopic procedures is not going to be required at this time. 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 Yañez is a 66 BF, with a history of DM type II, hypertension , CAD status post CABG, stent placement, dyslipidemia, obesity, MECHANICAL MITRAL VALVE REPLACEMENT, chronic anticoagulation, iron deficiency anemia, chronic renal insufficiency, smoker, chronic angina. Severe ischemic cardiomyopathy with EF 20%. February 20, 2017, underwent left modified radical mastectomy with sentinel node dissection of the left axilla. She was transferred to ICU postoperatively to monitor respiratory status and maintained on BiPap machine. Heparin infusion protocol restarted postsurgery for mechanical mitral valve. Coumadin was restarted on February 20, 2017, however Heparin gtt was held 02/21/17 due to significant bleeding from surgical site. As patient stabilized hemodynamically, Heparin infusion was restarted and plan to continue until INR is around 2. Patient has received Coumadin 2 mg daily for 2 days, and will continue Coumadin 1 mg daily, as this is her usual dose. Creatinine slightly elevated, his low-dose PRINCESS inhibitor held. The patient was transfused with 2u PRBCs. The patient was repeatedly asked to confirm Coumadin dose of 1 mg, and she had family present today as well that also "verified" at that with the dosage she takes. However, when we called the pharmacy, they tell us that the only dose that has been filled in anytime recently as a 5 mg dose. We adjusted the dose accordingly. February 26, 2017 Update: Patient sitting up in chair and continued on heparin infusion protocol. INR is 1.2, hemoglobin and hematocrit stable at 8.7 and 28. Creatinine stable at 1.6. Continue Coumadin 5 mg and repeat CBC and INR daily. Will likely be another couple of days before her INR responds to the increase in Coumadin. February 27, 2017: Ms. Yañez is day 7 status post left modified radical mastectomy. Dressings and drains noted. She denies any chest pain, just soreness at surgical site. Oxygen is in use via nasal cannula and she is At this point, but she just completed her bath and had been off her oxygen. She says she was not short of breath before that activity. INR today is 1.3. We will continue heparin as well as Coumadin, will increase Coumadin to 7.5 mg tonight. H&H improved at 9.2 and 29.1. Magnesium is low at 1.6, we will replace this. ASSESSMENT/PLAN: 1. LEFT BREAST MALIGNANCY - status post left mastectomy 2. KNOWN CAD (previous CABG and stent placement) - continue home medication and monitor closely. Clinically this appears to be stable. 3. HYPERTENSION - continue beta-sharona, PRINCESS inhibitor. Adjust medications accordingly during the hospital stay. 4. IRON DEFICIENCY ANEMIA -chronic. Continue heparin and increase warfarin. INR and CBC daily. 5. TOBACCO ABUSE - the merits of smoking cessation have been discussed greater than 5 minutes. 6. MECHANICAL MITRAL VALVE REPLACEMENT -continue heparin protocol, daily INR still subtherapeutic. Despite us confirming her warfarin dosing both with the patient and her family, there was some confusion as they are believed she was only taking 1 mg daily at home. After calling the pharmacy and verifying that she was actually receiving 5 mg. She is now on Coumadin 5 mg daily, but still significantly subtherapeutic. We will increase to 7.5 mg. 7. DIABETES TYPE 2 - continue Accu-Cheks, sliding scale. 8 ISCHEMIC CARDIOMYOPATHY - EF 20%, continue current plan of care. 9. CHF - Acute on chronic CHF secondary to systolic dysfunction (EF 20%) and diastolic dysfunction, NYHA Class II-III. Exam (Progress Note) - Constitutional Vitals: Period Temp Pulse Resp BP Sys/Eli Pulse Ox Last 24 Hr 97.4 F-98.3 F 75-98 16-20 126-163/62-93 97-100 Exam: General: Patient is no apparent distress. Pleasant and cooperative. Appears comfortable. HEENT: PERRL, normocephalic, atraumatic. Mucous membranes moist. No jaundice noted. Conjunctiva moist and clear, sclerae anicteric. Neck: No JVD/HJR, no thyromegaly or lymphadenopathy noted. Cardiac: Regular rate and rhythm, mechanical S2. No murmur rub or gallop. Lungs: Essentially clear to auscultation, diminished throughout without accessory muscle use to assist the respiratory pattern. Abdomen: Soft, bowel sounds normoactive. Nontender and nondistended. No abdominal bruit or thrill noted. No masses noted. Musculoskeletal: No fluid collection. Normal range of motion is noted while lying in bed. Dressing intact to left chest wall, SAURAV drain X 2, small amount of serosanguineous drainage noted. Tenderness to palpation. Extremities: No clubbing, cyanosis noted. Mild bilateral lower extremity edema noted. Upper extremity pulses 2+. Lower extremity pulses 2+. Capillary refill less than 3 seconds. Skin: No unusual lesions or rashes. No skin breakdown appreciated. Neuro: Awake, alert and oriented 3. Moves all extremities well without hemiparesis or paralysis. No essential tremor is appreciated. Result/EKG - Labs CBC & BMP: 02/27/17 02:57 02/27/17 02:57 Lab Results: I have reviewed the past 24 hour labs Labs: Laboratory Results - last 24 hr 02/26/17 02/26/17 02/26/17 11:05 16:41 19:50 WBC RBC Hgb Hct MCV MCH MCHC RDW Plt Count MPV Neut % (Auto) Lymph % (Auto) [place] % (Auto) Eos % (Auto) Baso % (Auto) Neut # (Auto) Lymph # (Auto) [place] # (Auto) Eos # (Auto) Baso # (Auto) Immature Gran % Nucleated RBC % Immature Gran # Nucleated RBCs # Immature Plt Fraction INR PT Patient/Control Mix Circ Anticoag PTT 38.3 Sodium Potassium Chloride Carbon Dioxide Anion Gap BUN Creatinine GFR Calculation BUN/Creatinine Ratio Glucose POC Glucose 211 H 100 Calculated Osmolality Calcium Magnesium 02/26/17 02/27/17 02/27/17 20:17 02:57 02:57 WBC 5.6 RBC 3.42 L Hgb 9.2 L Hct 29.1 L MCV 85.1 L MCH 27 MCHC 31.6 L RDW 18.7 H Plt Count 216 MPV 11.0 Neut % (Auto) 64.2 Lymph % (Auto) 17.3 L [place] % (Auto) 11.2 Eos % (Auto) 6.5 Baso % (Auto) 0.4 Neut # (Auto) 3.6 Lymph # (Auto) 1.0 L [place] # (Auto) 0.6 Eos # (Auto) 0.4 Baso # (Auto) 0.0 Immature Gran % 0.4 Nucleated RBC % 0.0 Immature Gran # 0.02 Nucleated RBCs # 0.00 Immature Plt Fraction 0.0 INR PT Patient/Control Mix Circ Anticoag PTT Sodium 139 Potassium 4.3 Chloride 101 Carbon Dioxide 35 H Anion Gap 7.3 BUN 21 H Creatinine 1.60 H GFR Calculation 44 BUN/Creatinine Ratio 13.00 Glucose 121 H POC Glucose 176 H Calculated Osmolality 280.5 Calcium 8.3 L Magnesium 1.6 L 02/27/17 02/27/17 02/27/17 02:57 02:57 06:46 WBC RBC Hgb Hct MCV MCH MCHC RDW Plt Count MPV Neut % (Auto) Lymph % (Auto) [place] % (Auto) Eos % (Auto) Baso % (Auto) Neut # (Auto) Lymph # (Auto) [place] # (Auto) Eos # (Auto) Baso # (Auto) Immature Gran % Nucleated RBC % Immature Gran # Nucleated RBCs # Immature Plt Fraction INR 1.3 PT Patient/Control Mix 14.1 Circ Anticoag PTT 62.0 H D Sodium Potassium Chloride Carbon Dioxide Anion Gap BUN Creatinine GFR Calculation BUN/Creatinine Ratio Glucose POC Glucose 147 H Calculated Osmolality Calcium Magnesium Specialty Discharge - Follow Up or Referrals Follow up with: Ravindra Alcazar MD [Physician] - Nathaniel James Jennifer, MD, personally performed the services described in this documentation, ascribed by Kelli Cohen RN in my presence, and it is both accurate and complete [id number] .
[2017-02-27] MEDS: WARFARIN 7.5 MG TABLET PO SCH (17:56)
[2017-02-27] MEDS: ACETAMINOPHEN 325 MG TABLET PO PRN (18:12)
[2017-02-27] MEDS: AMITRIPTYLINE 25 MG TABLET PO SCH (20:24)
[2017-02-28 02:00] LABS: INR 1.5; PT Patient Result 16.7 SECS
[2017-02-28 02:02] LABS: Basophils % 0.4 % (0.0-0.8); Eosinophils # 0.3 10*3/uL (0.0-0.87); Eosinophils % 6.9 % (0.00-10.9); Hematocrit 27.5 VOL% (35.7-47.0); Hemoglobin 8.6 GM/DL (12.0-16.0); Immature Granulocytes % 0.2 %; Immature Granulocytes Absolute 0.01 #; Lymphocytes # 1.2 10*3/uL (1.4-4.0); Lymphocytes % 23.4 % (21.3-54.2); Mean Corpuscular HGB Conc 31.3 GM/DL (32-36); Mean Corpuscular Hemoglobin 27 PG (27-34); Mean Corpuscular Volume 86.5 FL (87-102); Mean Platelet Volume 12.5 FL (9.6-12.0); Monocytes # 0.6 10*3/uL (0.11-0.8); Monocytes % 11.8 % (1.7-12.7); Neutrophils # 2.8 10*3/uL (1.4-7.4); Neutrophils % 57.3 % (38.7-73.9); Platelet Count 203 T/CUMM (130-400); Red Blood Count 3.18 MC/CUMM (3.8-5.5); Red Cell Distribution Width 18.7 % (9.3-17.3); White Blood Count 4.9 T/CUMM (4-12)
[2017-02-28] MEDS: ALBUTEROL/IPRATROPIUM 3 ML NEB RESP TX SCH ×3 (07:33→20:00)
[2017-02-28] MEDS: INSULIN REGULAR 100 UNIT/ML SUBCUT SCH ×4 (09:45→20:44)
[2017-02-28] MEDS: ISOSORBIDE MONONITRATE 60 MG TABLET PO SCH (09:58)
[2017-02-28] MEDS: hydrALAZINE 25 MG TABLET PO SCH ×2 (09:59→20:44)
[2017-02-28] MEDS: POTASSIUM CHLORIDE 10 MEQ TABLET PO SCH ×3 (09:59→18:03)
[2017-02-28] MEDS: PANTOPRAZOLE 40 MG TABLET PO SCH (09:59)
[2017-02-28] MEDS: CARVEDILOL 25 MG TABLET PO SCH ×2 (09:59→20:43)
[2017-02-28] MEDS: chlordiazePOXIDE 10 MG CAPSULE PO SCH (10:00)
[2017-02-28] MEDS: FUROSEMIDE 80 MG TABLET PO SCH (10:00)
[2017-02-28] MEDS: ATORVASTATIN 80 MG TABLET PO SCH (10:09)
[2017-02-28] MEDS: ACETAMINOPHEN 325 MG TABLET PO PRN ×2 (10:13→18:19)
--- NOTE | 2017-02-28 15:33 | Cardiology Progress Note ---
Assessment and Plan (1) Breast cancer Status: Acute Assessment and plan: SEE LIST IN PLAN OF CARE BELOW Current Visit: Yes Qualifiers: Patient sex: female Laterality: left (2) Congestive heart failure Status: Chronic Current Visit: No (3) Iron deficiency anemia Problem details: The patient has small bowel AVMs-- these could be treated if the patient was kept off her anticoagulation briefly by double balloon endoscopy done either [facility] or [facility]. This would have to be done as an outpatient at some point, in between transfusions, off of anticoagulation completely for a chance of success, or at least decreased transfusion requirements. Further evaluation with endoscopic procedures is not going to be required at this time. 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 Yañez is a 66 BF, with a history of DM type II, hypertension , CAD status post CABG, stent placement, dyslipidemia, obesity, MECHANICAL MITRAL VALVE REPLACEMENT, chronic anticoagulation, iron deficiency anemia, chronic renal insufficiency, smoker, chronic angina. Severe ischemic cardiomyopathy with EF 20%. February 20, 2017, underwent left modified radical mastectomy with sentinel node dissection of the left axilla. She was transferred to ICU postoperatively to monitor respiratory status and maintained on BiPap machine. Heparin infusion protocol restarted postsurgery for mechanical mitral valve. Coumadin was restarted on February 20, 2017, however Heparin gtt was held 02/21/17 due to significant bleeding from surgical site. As patient stabilized hemodynamically, Heparin infusion was restarted and plan to continue until INR is around 2. Patient has received Coumadin 2 mg daily for 2 days, and will continue Coumadin 1 mg daily, as this is her usual dose. Creatinine slightly elevated, his low-dose PRINCESS inhibitor held. The patient was transfused with 2u PRBCs. The patient was repeatedly asked to confirm Coumadin dose of 1 mg, and she had family present today as well that also "verified" at that with the dosage she takes. However, when we called the pharmacy, they tell us that the only dose that has been filled in anytime recently as a 5 mg dose. We adjusted the dose accordingly. February 26, 2017: Patient sitting up in chair and continued on heparin infusion protocol. INR is 1.2, hemoglobin and hematocrit stable at 8.7 and 28. Creatinine stable at 1.6. Continue Coumadin 5 mg and repeat CBC and INR daily. Will likely be another couple of days before her INR responds to the increase in Coumadin. February 27, 2017: Ms. Yañez is day 7 status post left modified radical mastectomy. Dressings and drains noted. She denies any chest pain, just soreness at surgical site. Oxygen is in use via nasal cannula and she is At this point, but she just completed her bath and had been off her oxygen. She says she was not short of breath before that activity. INR today is 1.3. We will continue heparin as well as Coumadin, will increase Coumadin to 7.5 mg tonight. H&H improved at 9.2 and 29.1. Magnesium is low at 1.6, we will replace this. February 28, 2017: Clinically she seems to be doing well. She denies any chest pain other than some tugging at her incision sites. She is not short of breath. She has not had any ongoing bleeding. Her INR has finally increased to 1.5. When it is closer to 2 we can consider discharge. ASSESSMENT/PLAN: 1. LEFT BREAST MALIGNANCY - status post left mastectomy 2. KNOWN CAD (previous CABG and stent placement) - continue home medication and monitor closely. Clinically this appears to be stable. 3. HYPERTENSION - continue beta-sharona, PRINCESS inhibitor. Adjust medications accordingly during the hospital stay. 4. IRON DEFICIENCY ANEMIA -chronic. Continue heparin and increase warfarin. INR and CBC daily. 5. TOBACCO ABUSE - the merits of smoking cessation have been discussed greater than 5 minutes. 6. MECHANICAL MITRAL VALVE REPLACEMENT -continue heparin protocol, daily INR still subtherapeutic. Despite us confirming her warfarin dosing both with the patient and her family, there was some confusion as they are believed she was only taking 1 mg daily at home. After calling the pharmacy and verifying that she was actually receiving 5 mg. She is now on Coumadin 5 mg daily, but still significantly subtherapeutic. We have increased to 7.5 mg. 7. DIABETES TYPE 2 - continue Accu-Cheks, sliding scale. 8 ISCHEMIC CARDIOMYOPATHY - EF 20%, continue current plan of care. 9. CHF - Acute on chronic CHF secondary to systolic dysfunction (EF 20%) and diastolic dysfunction, NYHA Class II-III. Exam (Progress Note) - Constitutional Vitals: Period Temp Pulse Resp BP Sys/Eli Pulse Ox Last 24 Hr 97.4 F-98.3 F 73-87 16-20 121-161/65-84 96-100 Exam: General: Patient is no apparent distress. Pleasant and cooperative. Appears comfortable. HEENT: PERRL, normocephalic, atraumatic. Mucous membranes moist. No jaundice noted. Conjunctiva moist and clear, sclerae anicteric. Neck: No JVD/HJR, no thyromegaly or lymphadenopathy noted. Cardiac: Regular rate and rhythm, mechanical S2. No murmur rub or gallop. Lungs: Essentially clear to auscultation, diminished throughout without accessory muscle use to assist the respiratory pattern. Abdomen: Soft, bowel sounds normoactive. Nontender and nondistended. No abdominal bruit or thrill noted. No masses noted. Musculoskeletal: No fluid collection. Normal range of motion is noted while lying in bed. Dressing intact to left chest wall, SAURAV drain X 2, small amount of serosanguineous drainage noted. Tenderness to palpation. Extremities: No clubbing, cyanosis noted. Mild bilateral lower extremity edema noted. Upper extremity pulses 2+. Lower extremity pulses 2+. Capillary refill less than 3 seconds. Skin: No unusual lesions or rashes. No skin breakdown appreciated. Neuro: Awake, alert and oriented 3. Moves all extremities well without hemiparesis or paralysis. No essential tremor is appreciated. Result/EKG - Labs CBC & BMP: 02/28/17 00:28 02/27/17 02:57 Lab Results: I have reviewed the past 24 hour labs Labs: Laboratory Results - last 24 hr 02/27/17 02/27/17 02/27/17 15:52 16:58 20:15 WBC RBC Hgb Hct MCV MCH MCHC RDW Plt Count MPV Neut % (Auto) Lymph % (Auto) [place] % (Auto) Eos % (Auto) Baso % (Auto) Neut # (Auto) Lymph # (Auto) [place] # (Auto) Eos # (Auto) Baso # (Auto) Immature Gran % Nucleated RBC % Immature Gran # Nucleated RBCs # Immature Plt Fraction INR PT Patient/Control Mix Circ Anticoag PTT 102.1 H* D POC Glucose 152 H 149 H 02/27/17 02/28/17 02/28/17 21:35 00:28 00:28 WBC 4.9 RBC 3.18 L Hgb 8.6 L Hct 27.5 L MCV 86.5 L MCH 27 MCHC 31.3 L RDW 18.7 H Plt Count 203 MPV 12.5 H Neut % (Auto) 57.3 Lymph % (Auto) 23.4 [place] % (Auto) 11.8 Eos % (Auto) 6.9 Baso % (Auto) 0.4 Neut # (Auto) 2.8 Lymph # (Auto) 1.2 L [place] # (Auto) 0.6 Eos # (Auto) 0.3 Baso # (Auto) 0.0 Immature Gran % 0.2 Nucleated RBC % 0.0 Immature Gran # 0.01 Nucleated RBCs # 0.00 Immature Plt Fraction 0.0 INR 1.5 PT Patient/Control Mix 16.7 Circ Anticoag PTT 77.7 H D POC Glucose 02/28/17 02/28/17 02/28/17 01:23 05:44 07:20 WBC RBC Hgb Hct MCV MCH MCHC RDW Plt Count MPV Neut % (Auto) Lymph % (Auto) [place] % (Auto) Eos % (Auto) Baso % (Auto) Neut # (Auto) Lymph # (Auto) [place] # (Auto) Eos # (Auto) Baso # (Auto) Immature Gran % Nucleated RBC % Immature Gran # Nucleated RBCs # Immature Plt Fraction INR PT Patient/Control Mix Circ Anticoag PTT Cancelled 90.3 H POC Glucose 106 02/28/17 02/28/17 12:15 12:52 WBC RBC Hgb Hct MCV MCH MCHC RDW Plt Count MPV Neut % (Auto) Lymph % (Auto) [place] % (Auto) Eos % (Auto) Baso % (Auto) Neut # (Auto) Lymph # (Auto) [place] # (Auto) Eos # (Auto) Baso # (Auto) Immature Gran % Nucleated RBC % Immature Gran # Nucleated RBCs # Immature Plt Fraction INR PT Patient/Control Mix Circ Anticoag PTT 117.2 H* D POC Glucose 158 H Specialty Discharge - Follow Up or Referrals Follow up with: Ravindra Alcazar MD [Physician] -
[2017-02-28] MEDS: WARFARIN 7.5 MG TABLET PO SCH (18:04)
[2017-02-28] MEDS: HEPARIN DRIP 25,000 UNITS/500 ML PREMIX IV SCH (18:05)
--- NOTE | 2017-02-28 18:37 | Event Note ---
General Surgery Progress Note Chief complaint This patient is a 66-year-old woman with a history of prosthetic valve in her heart admitted following left modified radical mastectomy for breast cancer on who is still in the hospital awaiting bridging of her anticoagulation on heparin until her INR is therapeutic on Coumadin. Interval history The patient has no complaints today. Her INR is 1.5. Physical exam The patient is afebrile with normal vital signs Her left breast exam reveals some skin necrosis at the incision but no erythema or drainage. There is some old blood on the incision is well that makes it difficult to fully evaluate. SAURAV drains are serosanguineous. Labs INR 1.5 Imaging None Assessment and plan We will clean the left breast wound and change the dressings. There is some skin edge necrosis but no need for debridement currently. Repeat INR
[2017-02-28] MEDS: AMITRIPTYLINE 25 MG TABLET PO SCH (20:44)
[2017-03-01] MEDS: HEPARIN DRIP 25,000 UNITS/500 ML PREMIX IV SCH (03:45)
[2017-03-01 04:49] LABS: Basophils % 0.3 % (0.0-0.8); Eosinophils # 0.4 10*3/uL (0.0-0.87); Eosinophils % 6.7 % (0.00-10.9); Hematocrit 28.8 VOL% (35.7-47.0); Hemoglobin 8.9 GM/DL (12.0-16.0); Immature Granulocytes % 0.3 %; Immature Granulocytes Absolute 0.02 #; Lymphocytes % 16.3 % (21.3-54.2); Mean Corpuscular HGB Conc 30.9 GM/DL (32-36); Mean Corpuscular Hemoglobin 27 PG (27-34); Mean Platelet Volume 11.7 FL (9.6-12.0); Monocytes # 0.7 10*3/uL (0.11-0.8); Monocytes % 11.5 % (1.7-12.7); Neutrophils % 64.9 % (38.7-73.9); Platelet Count 211 T/CUMM (130-400); Red Blood Count 3.31 MC/CUMM (3.8-5.5); Red Cell Distribution Width 18.9 % (9.3-17.3); White Blood Count 6.1 T/CUMM (4-12)
[2017-03-01 05:19] LABS: PT Patient Result 21.9 SECS
[2017-03-01] MEDS: INSULIN REGULAR 100 UNIT/ML SUBCUT SCH ×2 (09:03→14:36)
[2017-03-01] MEDS: CARVEDILOL 25 MG TABLET PO SCH (09:10)
[2017-03-01] MEDS: ACETAMINOPHEN 325 MG TABLET PO PRN (09:10)
[2017-03-01] MEDS: PANTOPRAZOLE 40 MG TABLET PO SCH (09:11)
[2017-03-01] MEDS: chlordiazePOXIDE 10 MG CAPSULE PO SCH (09:11)
[2017-03-01] MEDS: FUROSEMIDE 80 MG TABLET PO SCH (09:12)
[2017-03-01] MEDS: POTASSIUM CHLORIDE 10 MEQ TABLET PO SCH ×2 (09:12→14:37)
[2017-03-01] MEDS: ISOSORBIDE MONONITRATE 60 MG TABLET PO SCH (09:13)
[2017-03-01] MEDS: FERROUS SULFATE 325 MG TABLET PO SCH (09:13)
[2017-03-01] MEDS: ATORVASTATIN 80 MG TABLET PO SCH (09:13)
[2017-03-01] MEDS: hydrALAZINE 25 MG TABLET PO SCH (09:14)
[2017-03-01 11:44] VITALS: BP 141/63
--- NOTE | 2017-03-01 12:20 | Discharge Summary ---
Hospital Course - Hospital Course Hospital Course: admitted following lymphoscintogram for heparin drip prior to MRM. MRM on ... went to [facility]cu for dyspnea, postop. cardiology followed during hospitalization. heparin gtt resumed 12 hours postop. transferred to floor pod #2. diet and activity advanced. INR not therapeutic, so dose increased. Lovenox started last night. Able to go home on lovenox, and asking to go home. will d/c tonight, if ride available. The patient was kept in the hospital until her Coumadin was therapeutic. Her heparin drip was discontinued and she was sent home on a Coumadin regimen per cardiology. She was instructed to strip her SAURAV drains and record output daily and call Dr. Alcazar's office the day after discharge to set up follow-up. She did develop some skin edge necrosis of her incision but there is no infection or need for debridement and this can be managed in the clinic setting. Specialty Discharge - Follow Up or Referrals Follow up with: Ravindra Alcazar MD [Physician] - Discharge Plan - Discharge Data Disposition: Disch To Home/Self Care Condition at Discharge: Stable Discharge Diet: advance to your usual diet Activity: resume usual activities as tolerated Hygiene: may shower Weight Bearing at Discharge: weight bear as tolerated Driving: not until seen by doctor Contact your physician if you experience:: fever over 101, Difficulty voiding, Redness or swelling, Nausea/Vomiting, Shortness of breath, Bleeding, pain uncontrolled by pain medications Wound / Dressing Care Instructions: Clean the wound once daily and cover with a dry gauze dressing. Wear a compressive bra dressing until you are seen in follow-up by Dr. Alcazar. Strip the SAURAV drains 3 times daily and record output daily. - Discharge Medications New Atorvastatin [Lipitor] 80 mg PO DAILY tablet Warfarin [Coumadin] 2.5 mg PO DAILY #60 tablet Continue Isosorbide Mononitrate [Isosorbide Mononitrate ER] 60 mg PO DAILY Ferrous Sulfate Tab [Feosol Original Tab] 325 mg PO QOTHER DAY Carvedilol [Coreg] 25 mg PO BID Amitriptyline [Elavil] 25 mg PO DAILY chlordiazePOXIDE [Librium] 10 mg PO DAILY hydrALAZINE TAB [Apresoline Tab] 25 mg PO BID sitaGLIPtin [Januvia] 25 mg PO DAILY Pantoprazole Tab [Protonix Tab] 40 mg PO DAILY Albuterol/Ipratropium Neb [Duoneb] 3 ml RESP TX TID Potassium Chloride 10 meq PO TID W/MEALS Amlodipine Besylate 5 mg PO DAILY Furosemide Tab [Lasix Tab] 40 mg PO DAILY Discontinued Warfarin [Coumadin] 1 mg PO DAILY@1800 - Follow Up or Referral Follow Up: Ottoniel,Ravindra Gordon MD [Physician] - - Forms/Instructions Additional Discharge Instructions: Take 2 tablets of your 2.5 mg Coumadin prescription on Thursday evening, Thursday evening, evening, and Thursday evening. Take 3 tablets of your 2.5 mg Coumadin prescription on Thursday evening , Thursday evening, and Thursday evening. You need to have your INR checked on Thursday and this needs to be given to her cardiology physician and further management of your Coumadin needs to be done by your manager molecular. Exam - Constitutional Vitals: Period Temp Pulse Resp BP Sys/Eli Pulse Ox Last 24 Hr 97.0 F-97.6 F 70-103 16-20 113-141/56-69 98-100 General appearance: no acute distress, over weight - Head Head exam: Present: normal inspection, normocephalic - Eye Eye exam: Present: EOMI Pupils: Present: IRWIN - ENT ENT exam: Present: normal exam - Neck Neck exam: Present: normal inspection - Respiratory Respiratory exam: Present: clear to auscultation bilaterally. Absent: accessory muscle use, chest wall tenderness - Cardiovascular Cardiovascular exam: Present: regular rate and rhythm. Absent: tachycardia - GI/Abdominal GI/Abdominal exam: Present: soft. Absent: tenderness, rebound - Extremities Exam Extremities exam: Present: normal inspection, normal capillary refill - Back Exam Back exam: Present: normal inspection - Neurological Exam Neurological exam: Present: alert, oriented X3 - Skin Skin exam: Present: other (There is some skin edge necrosis at the incision but it has not dehisced and there is no infection or need for debridement. The SAURAV drains have serosanguineous fluid output.) Discharge Results Procedures and tests throughout hospitalization: Pending Orders 03/01/17 16:05 PTT [Partial Thromboplastin Time] Q6H 03/01/17 22:05 PTT [Partial Thromboplastin Time] Q6H 03/02/17 04:00 BMP [Basic Metabolic Panel] Routine Comp Blood Count Auto Diff IN AM Prothrombin Time INR IN AM Labs on day of discharge: Labs from last 24 hours 03/01/17 03/01/17 03/01/17 09:49 07:22 05:42 WBC RBC Hgb Hct MCV MCH MCHC RDW Plt Count MPV Neut % (Auto) Lymph % (Auto) [place] % (Auto) Eos % (Auto) Baso % (Auto) Neut # (Auto) Lymph # (Auto) [place] # (Auto) Eos # (Auto) Baso # (Auto) Immature Gran % Nucleated RBC % Immature Gran # Nucleated RBCs # Immature Plt Fraction INR PT Patient/Control Mix Circ Anticoag PTT 52.0 H 47.1 H D POC Glucose 140 H 03/01/17 03/01/17 02/28/17 03:10 03:10 19:43 WBC 6.1 RBC 3.31 L Hgb 8.9 L Hct 28.8 L MCV 87.0 MCH 27 MCHC 30.9 L RDW 18.9 H Plt Count 211 MPV 11.7 Neut % (Auto) 64.9 Lymph % (Auto) 16.3 L [place] % (Auto) 11.5 Eos % (Auto) 6.7 Baso % (Auto) 0.3 Neut # (Auto) 4.0 Lymph # (Auto) 1.0 L [place] # (Auto) 0.7 Eos # (Auto) 0.4 Baso # (Auto) 0.0 Immature Gran % 0.3 Nucleated RBC % 0.0 Immature Gran # 0.02 Nucleated RBCs # 0.00 Immature Plt Fraction 0.0 INR 2.0 PT Patient/Control Mix 21.9 D Circ Anticoag PTT POC Glucose 155 H 02/28/17 02/28/17 02/28/17 17:23 16:56 12:52 WBC RBC Hgb Hct MCV MCH MCHC RDW Plt Count MPV Neut % (Auto) Lymph % (Auto) [place] % (Auto) Eos % (Auto) Baso % (Auto) Neut # (Auto) Lymph # (Auto) [place] # (Auto) Eos # (Auto) Baso # (Auto) Immature Gran % Nucleated RBC % Immature Gran # Nucleated RBCs # Immature Plt Fraction INR PT Patient/Control Mix Circ Anticoag PTT 72.4 H D 117.2 H* D POC Glucose 157 H 02/28/17 12:15 WBC RBC Hgb Hct MCV MCH MCHC RDW Plt Count MPV Neut % (Auto) Lymph % (Auto) [place] % (Auto) Eos % (Auto) Baso % (Auto) Neut # (Auto) Lymph # (Auto) [place] # (Auto) Eos # (Auto) Baso # (Auto) Immature Gran % Nucleated RBC % Immature Gran # Nucleated RBCs # Immature Plt Fraction INR PT Patient/Control Mix Circ Anticoag PTT POC Glucose 158 H DS: Provider Date of admission: 02/19/17 09:30 Primary care physician: Froylan Monet Attending physician on admission: Ravindra Alcazar MD Consults: 02/19/17 10:57 Consult to Physician [CONS] Routine Comment: KNOWN TO YOUR Consulting Provider: Henrik Gant Consulting Provider Notified: Yes When should Consulting Provider be notified: Now Consult to Specialist Group: Cardiology When should Consulting Provider be notified: Now Person Notified: TIA Date Notified: 02/19/17 Time Notified: 10:58 02/20/17 11:25 Consult to Physician [CONS] Routine Comment: Consulting Provider: Consulting Provider Notified: Yes Consult to Specialist Group: Cardiology When should Consulting Provider be notified: Now Person Notified: DR. GANT Date Notified: 02/20/17 Time Notified: 11:05 Consult Notification Comment: DR GANT OFFICE NOTIFIED SPOKE WITH AVE AT 1105 02/24/17 16:08 Consult to Physician [CONS] Routine Comment: No positive Breast Cancer Consulting Provider: Jesus Keenan Consulting Provider Notified: Yes When should Consulting Provider be notified: Now Consult to Specialist Group: Oncology When should Consulting Provider be notified: Now Person Notified: Allie castañeda Date Notified: 02/24/17 Time Notified: 16:12 Discharging clinician: Moises Harris MD Expected date of discharge: 03/01/17
== END 2017-03-01 14:25 | disposition home health service (06) | DRG 579 ==
LOC: N.4E 09:30 → EDSTATUS 02-20 07:30 → N.ICU 02-20 11:45 → N.3E 02-22 16:22
PROVIDERS: ADMIT Surgery; ATTEND Surgery

== ENCOUNTER 2017-03-09 12:05 | Inpatient (IN) ==
[2017-03-09] MEDS ORDERED: NITROGLYCERIN 2% OINT 1 INCH/GM PACK TOP STA (12:23)
[2017-03-09] MEDS ORDERED: METOPROLOL TARTRATE 5 MG/5 ML VIAL IV STA (12:24)
[2017-03-09] MEDS ORDERED: ENOXAPARIN 80 MG/0.8 ML SYRINGE SUBCUT STA (12:25)
[2017-03-09] MEDS ORDERED: ASPIRIN 325 MG TABLET PO STA (12:25)
--- NOTE | 2017-03-09 12:28 | Emergency Department Note ---
Kaley James Rolonda, am scribing for, and in the presence of, Tony Vinson MD 12: 22. Alisson James James D, MD, personally performed the services described in this documentation, ascribed by Grant Roche in my presence, and it is both accurate and complete . Arrival - Arrival Chief Complaint: Shortness of Breath Stated Complaint: SOB ED Nursing Triage Note: PT TO ER 06 VIA EMS COMING FROM [facility] A TRANSFER WITH C/O HAVING SOB ONSET THIS AM. 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 PT CAME TO OUR FACILITY WITHOUT IV ACCESS. PT ROOM AIR 02 SAT IS 80% Mode of Arrival: Stretcher Limitations: No Limitations Source: Patient, Old Records Reviewed, RN Notes Reviewed Time Seen by Provider: 03/09/17 12:14 - History of Present Illness HPI Narrative: Pt is a 66 y/o female who presents to the ED from [facility] for further evaluation of SOB with an onset of last night. Pt has a PMHx of CHF and stents. Pt had a left modified radical mastectomy last week. She states that she smokes 1/2 pack a day. Pt states that her legs are swollen and that the SOB worsens while laying down at night. She also confirms fullness in her chest, diaphoresis , and CP. She is f/u by Dr. Gant. No other complaint/pain in ED. Onset (ago): hour(s) Consistency: constant Severity: moderate Severity scale (1-10): 4 Quality: fullness Allergies/Adverse Reactions: Allergies Allergy/AdvReac Type Severity Reaction Status Date / Time morphine AdvReac Intermediate Drowsy Verified 02/21/17 18:10 Home Medications: Home Medications Medication Instructions Recorded Confirmed Type Carvedilol [Coreg] 25 mg PO BID 12/13/16 02/19/17 History Ferrous Sulfate Tab [Feosol 325 mg PO QOTHER DAY 12/13/16 02/19/17 History Original Tab] Isosorbide Mononitrate [Isosorbide 60 mg PO DAILY 12/13/16 02/19/17 History Mononitrate ER] Amitriptyline [Elavil] 25 mg PO DAILY 02/02/17 02/19/17 History chlordiazePOXIDE [Librium] 10 mg PO DAILY 02/02/17 02/19/17 History hydrALAZINE TAB [Apresoline Tab] 25 mg PO BID 02/02/17 02/19/17 History Albuterol/Ipratropium Neb [Duoneb] 3 ml RESP TX TID 02/19/17 02/19/17 History Amlodipine Besylate 5 mg PO DAILY 02/19/17 02/19/17 History Furosemide Tab [Lasix Tab] 40 mg PO DAILY 02/19/17 02/19/17 History Pantoprazole Tab [Protonix Tab] 40 mg PO DAILY 02/19/17 02/19/17 History Potassium Chloride 10 meq PO TID W/MEALS 02/19/17 02/19/17 History sitaGLIPtin [Januvia] 25 mg PO DAILY 02/19/17 02/19/17 History Atorvastatin [Lipitor] 80 mg PO DAILY tablet 03/01/17 Rx HYDROcodone/ACETAMIN 5-325 [[place] 1 tablet PO Q4H PRN #10 tablet 03/01/17 Rx 5-325] Warfarin [Coumadin] 2.5 mg PO DAILY #60 tablet 03/01/17 Rx Review of System - Review of System 12 point system: reviewed and no additional remarkable complaints except as stated - Review of System Constitutional: Present: diaphoresis. Absent: chills Eyes: Absent: discharge Head/Ears/Nose/Throat: Absent: earache Respiratory: Present: respiratory distress. Absent: cough Cardiovascular: Present: chest pain, orthopnea Gastrointestinal: Absent: abdominal pain Genitourinary female: Absent: dysuria Musculoskeletal: Absent: arm pain Skin: Absent: rash Neurological: Absent: headache Psychiatric: Absent: anxiety Endocrine: Absent: cold intolerance Hematological/Lymphatic: Absent: easy bleeding Allergic/Immunologic: Absent: facial swelling Medical,Surgical,& Family Hx - Medical History Cardio: History of: CAD (s/p CABG), Hypertension, [place], Valvular Heart Disease (S/ p mechanical valve replacement), Cardiovascular Problems No history of: Aneurysm, Cardiac Dysrhythmia, Cerebrovascular Disease, Congenital Heart Disease, CHF, Pacemaker, PVD Psychological: History of: Depression No history of: Anxiety Disorders, ADHD, Behavior Problems, Bipolar Disorder, Previous Suicide Attempt, Psychiatric/Substance Abuse Tx, Schizophrenia, Violent Behavior, Psychiatric Problems Neurology: History of: TIA No history of: Brain Aneurysm, Cerebral Hemorrhage, Cerebrovascular Accident , Cerebral Palsy, Dementia, Migraine, Multiple Sclerosis, Parkinson's Disease, Peripheral Neuropathy, Seizures, Vertigo, Neurologocal Cancer HEENT: History of: Eye Problem (NEAR SIGHTED FAR SIGHTED) No history of: Ear Problem, Dental Problems, Glaucoma, Oral Cancer, HEENT Problems Endocrine: History of: Diabetes Mellitus (NIDDM), Dyslipidemia, Thyroid Disorder No history of: Adrenal Disease, Diabetes Mellitus (IDDM), Endocrine Cancer, Endocrine Problems Rheumatology: No history of;: Fibromyalgia, Gout, Myasthenia Gravis, Psoriasis, Rheumatoid Arthritis, Sjogrens, Systemic Lupus Erythematosus, Rheumatological Problems Respiratory: No history of: Asthma, Bronchitis, COPD, Intubation, Obstructive Sleep Apnea (STATES THAT SHE WAS TESTED AT [facility] AND DOESNT HAVE DALLIN), Pulmonary Embolism, Pulmonary Hypertension, Pneumonia, Lung Cancer, Respiratory Problems Renal: History of: Renal Failure, Renal Problems (CKI) No history of: Renal (Kidney) Cancer, Dialysis Genitourinary: History of: Kidney Stones No history of: Bladder Problem, Recurring Urinary Tract Infections, Genitourinary Cancer, Problems Gastrointestinal: History of: Diverticulitis/ Diverticulosis (left-sided diverticulosis), GERD, Gastrointestinal Bleed (multiple small bowel AVMs, or mild gastritis), Polyps (sigmoid hyperplastic polyps), GI Problems No history of: Bowel Obstruction, Clostridium Difficile, Crohn's Disease, Esophageal Varices, Hemorrhoids, Hematochezia, Hepatitis, Liver Problems, Pancreatitis, Ulcerative Colitis, Gastrointestinal Cancer Musculoskeletal: No history of: Amputation, Back/Neck Problems, Degenerative Disk Disease, Herniated Disk, Osteoporosis, Musculoskeletal Cancer, Musculoskeletal Problems Hematology: History of: Anemia No history of: Blood Transfusion Reaction, Bleeding Problems, Clotting Problems, Sickle Cell Disease, Hematologic Cancer, Blood Disorders Reproductive: History of: Reproductive Problems No history of: Abnormal Pap Smear, Breast Cancer, Endometriosis, Ectopic , Ovarian Cysts, Complication, Sexually Transmitted Disorders , Reproductive Cancer Other: No history of: Anesthesia Reactions, Anaphylaxis, Cancer, Eczema, HIV, Malignant Hyperthermia, MRSA, Vancomycin-Resistant Enterococci, Skin Problems, Miscellaneous Medical Problems - Surgical History Cardiac Surgeries: Sugical HX of: Cardiac Catheterization (with stents), Cardiac Surgery (bypass) Patient Denies: Femoral-Popliteal Bypass Graft, Carotid Endarterectomy, Internal Defibrillator, Vascular Access Devices Thoracic Surgeries: Patient denies;: Kidney (Renal Surgery), Lithotripsy, Nephrectomy, Organ Transplant, Lobectomy Neurologic Surgeries: Patient denies: Brain Aneurysm, Cerebral Hemorrhage, Neurologic Surgery HEENT Surgeries: Patient denies: Carotid Endarterectomy, Eye Surgery, Thyroid Surgery, Tonsilectomy & Adenoidectomy Abdominal Surgeries: Surgical HX of: Colonoscopy, EGD Patient denies: Abdominal Surgery, Appendectomy, Cholecystectomy, Gastric Bypass Surgery, Hernia Repair, Splenectomy Reproductive Surgeries: Surgical HX of;: Gynecologic Surgery, Hysterectomy Patient denies;: Breast Surgery, Section, Cystoscopy, Dilation and Curettage, Genitourinary Surgery, Tubal Ligation Orthopedic Surgeries: Patient denies;: Implanted Devices, Orthopedic Surgery, Spinal Surgery, Total Hip Replacement, Total Knee Replacement - Family History Family History: Reports;: Family Cancer (MOTHER CERVICAL), Family Stroke (FATHER ) Denies;: Family Anesthesia Reaction, Family Diabetes, Family Heart Disease, Family Hypertension, Family Psychiatric Problems - Social History Smoking Status: Current every day smoker Frequency of Alcohol Use: None Type of Drug Use: None Exam Vital Signs: Vital Signs Temperature 98.6 F 03/09/17 12:05 Pulse Rate 120 H 03/09/17 12:05 Respiratory Rate 22 03/09/17 12:05 Blood Pressure 215/103 03/09/17 12:05 O2 Sat by Pulse Oximetry 80 L 03/09/17 12:05 GENERAL: This is a well-nourished well-developed black female, obese in no apparent distress. VITAL SIGNS: Reviewed HEENT: Head is atraumatic and normocephalic. Pupils are equal round react to light. Extraocular movements are intact. Oropharynx is benign with moist mucous membranes. NECK: Neck is soft and supple without tenderness. There are no masses. There is no lymphadenopathy. LUNGS: Bibasilar rales. Chest rises symmetrically. There is no chest wall tenderness. CV: Heart is regular rate and rhythm without murmurs rubs or gallops. ABDOMEN: Abdomen is soft, nontender to palpation. There are no abdominal abnormal masses palpated. There is no organomegaly. Bowel sounds are present and active. SKIN: Skin is warm and dry. No rash. EXTREMITIES: Patient has full range of motion without tenderness. There is 1-2 + pitting pedal edema. NEUROLOGIC: Awake alert and oriented 4. Cranial nerves II through XII are grossly intact. Motor is 4 over 5 in all extremities bilaterally. Course Course Narrative: Patient was given Lasix, Lopressor, Nitropaste, aspirin, and Lovenox in the emergency department. - Consultations Consultation #1: Discussed with Dr. Chakraborty. Patient will be admitted to his service. Initial orders written for him. He will assume care of the patient upon arrival to the [facility]. Time: 13:12 Results - Labs CBC & BMP: 03/09/17 12:28 03/09/17 12:28 Lab Results: I have reviewed the patients labs Labs: Laboratory Tests 03/09/17 03/09/17 12:28 12:28 INR 5.3 H* Magnesium 1.7 L Troponin I 0.098 H - EKG EKG results: interpreted by ERMD - Impressions EKG: Sinus tachycardia with a rate of 100, T-wave inversion anteriorly and laterally consistent with ischemia. Normal axis. - Diagnostic Findings Procedure: Chest x-ray: image reviewed by me (Old median sternotomy, increased pulmonary markings bilaterally consistent with pulmonary edema.) Disposition Clinical Impression: Dyspnea, Unstable angina, Coronary artery disease, Essential hypertension, Breast cancer, Congestive heart failure, Supratherapeutic INR, Diabetes mellitus Case discussed with: patient, patient's family Disposition: Still a Patient Condition: Guarded Time of Disposition: 13:12
[2017-03-09 12:36] LABS: Basophils % 0.3 % (0.0-0.8); Eosinophils # 0.1 10*3/uL (0.0-0.87); Eosinophils % 1.3 % (0.00-10.9); Hemoglobin 9.2 GM/DL (12.0-16.0); Immature Granulocytes % 0.4 %; Immature Granulocytes Absolute 0.04 #; Lymphocytes # 0.9 10*3/uL (1.4-4.0); Mean Corpuscular HGB Conc 30.7 GM/DL (32-36); Mean Corpuscular Hemoglobin 27 PG (27-34); Mean Corpuscular Volume 86.7 FL (87-102); Monocytes # 0.4 10*3/uL (0.11-0.8); Monocytes % 4.4 % (1.7-12.7); Neutrophils # 8.5 10*3/uL (1.4-7.4); Neutrophils % 84.6 % (38.7-73.9); Platelet Count 338 T/CUMM (130-400); Red Blood Count 3.46 MC/CUMM (3.8-5.5); Red Cell Distribution Width 19.9 % (9.3-17.3)
[2017-03-09] MEDS ORDERED: ENOXAPARIN 80 MG/0.8 ML SYRINGE SUBCUT ONE (12:37)
[2017-03-09] MEDS ORDERED: NITROGLYCERIN 2% OINT 1 INCH/GM PACK TOP ONE (12:37)
[2017-03-09] MEDS ORDERED: ASPIRIN 325 MG TABLET ONE (12:38)
[2017-03-09] MEDS ORDERED: METOPROLOL TARTRATE 5 MG/5 ML VIAL IV ONE (12:38)
[2017-03-09 12:58] LABS: Apearance,Urine CLEAR (Clear); Bacteria,Urine Occasional /HPF (Few); Bilirubin,Urine Negative (Negative); Blood, Urine Negative (Negative); Glucose,Urine (UA) Negative (Negative); Ketones,Urine Negative (Negative); Mucus,Urine Occasional /LPF (Occasional); Nitrite,Urine Negative (Negative); Protein,Urine Negative; RBC,Urine 2 /HPF (0-4); Squamous Epithelial Cell,Urine Occasional /HPF (0-10); Urine Color Colorless (Yellow); Urine Specific Gravity 1.004 (1.001-1.035); Urine Urobilinogen < 2.0 EU/DL (0.2-1.0); WBC,Urine <1 /HPF (0-6)
--- NOTE | 2017-03-09 13:04 | EKG Report ---
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
[2017-03-09 13:08] LABS: Albumin 3.1 G/DL (3.4-5.0); Bilirubin,Total 0.9 MG/DL (0.2-1.0); Calcium 8.9 MG/DL (8.5-10.1); Magnesium 1.7 MG/DL (1.8-2.4); Osmolality,Calculated 290.1 MOS/KG (273-304); PT Patient Result 62.9 SECS; Partial Thromboplastin Time 53.9 SECS (0-40); Potassium 4.2 MMOL/L (3.5-5.1); Total Protein 8.2 G/DL (6.4-8.3); Troponin I Only 0.098 NG/ML (0.00-0.045)
[2017-03-09 13:10] LABS: INR 5.3
--- NOTE | 2017-03-09 13:11 | XRay Report ---
Portable chest March 09, 2017 Indication: Difficulty breathing Comparison images dated February 20, 2017 Findings: Cardiomediastinal contours are stable with underlying cardiomegaly. Interstitial edema pattern is relatively unchanged with minimal improvement in the bilateral pleural effusions Impression:: No change in the interstitial edema pattern with slight improvement in the bilateral pleural effusions PROCEDURE INTERPRETED AT [facility] DEPARTMENT OF RADIOLOGY Final Report Signed by: Edd Ang
[2017-03-09] MEDS ORDERED: MAGNESIUM SULF RIDER 2 GM in PREMIX 1 EACH IV PRN (14:58)
[2017-03-09] MEDS ORDERED: MAGNESIUM SULF RIDER 2 GM in PREMIX 1 EACH IV STA (14:58)
[2017-03-09] MEDS ORDERED: GLUCAGON 1 MG VIAL IM PRN (14:58)
[2017-03-09] MEDS ORDERED: DEXTROSE 50% 25 GM/50 ML SYRINGE IV PRN (14:58)
[2017-03-09] MEDS ORDERED: ONDANSETRON 4 MG/2 ML VIAL IV PRN (14:58)
[2017-03-09] MEDS ORDERED: MAGNESIUM SULF RIDER 4 GM in PREMIX 1 EACH IV PRN (14:58)
--- NOTE | 2017-03-09 15:16 | EKG Report ---
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
[2017-03-09] MEDS: CARVEDILOL 25 MG TABLET PO SCH ×2 (15:30→21:33)
[2017-03-09] MEDS: SODIUM CHLORIDE 0.9% 1,000 ML IV SCH (15:45)
--- NOTE | 2017-03-09 16:18 | Cardiology History & Physical ---
Scotty James Lesley, NP, am scribing for, and in the presence of, Jacek Chakraborty MD 16:15. 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 Yañez is a 66 year old female, who is known to Dr. Gant. History of diabetes type 2, hypertension, CAD status post CABG, stent placement, dyslipidemia, obesity, MECHANICAL MITRAL VALVE REPLACEMENT, chronic anticoagulation, iron deficiency anemia, chronic renal insufficiency, smoker, chronic angina, and severe ischemic cardiomyopathy. Echocardiogram done shows mild concentric LV hypertrophy with diastolic dysfunction, LVEF 20% with global hypokinesis, and severe hypokinesis of the inferior wall. The patient reports that last night when she laid down to go to sleep she had some orthopnea and dyspnea. The symptoms were moderate in severity and lasted for several hours. There were no specific exacerbating or relieving factors. There was no associated nausea or diaphoresis. She denied any palpitations or syncope. She reports she went to the emergency room at [facility], and was given Lasix IV. She reports that she "filled up a bag" with urine there, and was subsequently transferred here and has "filled up another one". She was actually already feeling back to normal by the time I saw her. On 02/20/17, the patient was admitted at [facility] for left mastectomy due to breast cancer. She tolerated this well, however her hospital stay was extended while adjusting her coumadin for a therapeutic INR prior to discharge. She has not she reports that she saw Dr. Alcazar last week for a checkup, and has an upcoming appointment with an oncologist. She has a dressing intact to left chest wall today. The patient was seen in the ER today. She states she is breathing much better/ back to baseline after receiving IV Lasix. She is on oxygen via nasal cannula, 2 L. She has not had any anginal type symptoms. Sh Blood pressure has lowered to 144/93, O2 saturations 90 no percent on 2 L nasal cannula, telemetry shows sinus tachycardia. Labs reviewed: Hemoglobin 9.2, hematocrit 30, this has improved since her discharge on 03/01/17. Sodium 142, potassium 4.2 creatinine 1.5, BUN 24, glucose 166, magnesium 1.7, troponin I 0.098, BNP 2242, urinalysis negative. INR is 5.3. EKG shows sinus tachycardia. The patient will be monitored on telemetry unit. Plan to continue to diurese the patient. We will continue to cycle cardiac biomarkers. We will hold Coumadin and repeat INR in the morning. ASSESSMENT/PLAN: 1. CONGESTIVE HEART FAILURE -continue diuresis, strict I's and O's. The patient is already dramatically better/back to baseline. She was asking when she could go home. If she does well overnight, I would anticipate she could probably be discharged tomorrow. 2. CHRONIC KIDNEY DISEASE -continue to monitor creatinine closely. 3. HISTORY OF MECHANICAL HEART VALVE REPLACEMENT -monitor INR, and maintain therapeutic. 4. KNOWN CAD -(previous CABG and stent placement). She denies any anginal symptoms. She does not have acute EKG changes. Continue conservative/medical management. 5. CHRONIC ANTICOAGULATION -INR is 5.3, hold Coumadin and monitor closely. 6. SEVERE CARDIOMYOPATHY: On previous testing she had a severe cardiomyopathy with an ejection fraction of approximately 20%. 7. MECHANICAL MITRAL VALVE REPLACEMENT: Clinically and by exam this appears to be functioning normally. There is a crisp click. Recent echo showed normal function. She is on proper anticoagulation. Home Medications Medication Instructions Recorded Confirmed Type Carvedilol [Coreg] 25 mg PO BID 12/13/16 03/09/17 History Isosorbide Mononitrate [Isosorbide 60 mg PO DAILY 12/13/16 03/09/17 History Mononitrate ER] Amitriptyline [Elavil] 25 mg PO DAILY 02/02/17 03/09/17 History hydrALAZINE TAB [Apresoline Tab] 25 mg PO BID 02/02/17 03/09/17 History Amlodipine Besylate 5 mg PO DAILY 02/19/17 03/09/17 History Furosemide Tab [Lasix Tab] 40 mg PO DAILY 02/19/17 03/09/17 History Pantoprazole Tab [Protonix Tab] 40 mg PO DAILY 02/19/17 03/09/17 History Potassium Chloride 10 meq PO TID 02/19/17 03/09/17 History sitaGLIPtin [Januvia] 25 mg PO DAILY 02/19/17 03/09/17 History Warfarin [Coumadin] 5 mg PO DAILY 03/09/17 03/09/17 History Home Medications Medication Instructions Recorded Confirmed Type Carvedilol [Coreg] 25 mg PO BID 12/13/16 03/09/17 History Isosorbide Mononitrate [Isosorbide 60 mg PO DAILY 12/13/16 03/09/17 History Mononitrate ER] Amitriptyline [Elavil] 25 mg PO DAILY 02/02/17 03/09/17 History hydrALAZINE TAB [Apresoline Tab] 25 mg PO BID 02/02/17 03/09/17 History Amlodipine Besylate 5 mg PO DAILY 02/19/17 03/09/17 History Furosemide Tab [Lasix Tab] 40 mg PO DAILY 02/19/17 03/09/17 History Pantoprazole Tab [Protonix Tab] 40 mg PO DAILY 02/19/17 03/09/17 History Potassium Chloride 10 meq PO TID 02/19/17 03/09/17 History sitaGLIPtin [Januvia] 25 mg PO DAILY 02/19/17 03/09/17 History Warfarin [Coumadin] 5 mg PO DAILY 03/09/17 03/09/17 History Allergies Allergy/AdvReac Type Severity Reaction Status Date / Time morphine AdvReac Intermediate Drowsy Verified 02/21/17 18:10 - Constitutional Constitutional: Absent: anorexia, chills, fatigue, fever(s) - EENT Eyes: Absent: blurry vision Nose, mouth and throat: Absent: dysphagia, epistaxis, headache(s) - Cardiovascular Cardiovascular: Present: chest pain at rest, diaphoresis, dyspnea, dyspnea on exertion, edema, orthopnea. Absent: chest pain with activity, radiating jaw, neck or arm pain, lightheadedness, palpitations - Respiratory Respiratory: Present: cough, dyspnea, dyspnea on exertion. Absent: hemoptysis, wheezing - Gastrointestinal Gastrointestinal: Absent: abdominal pain, change in bowel habits, coffee ground emesis, hematemesis, hematochezia, melena, nausea, vomiting - Genitourinary Genitourinary: Absent: abnormal vaginal bleeding, difficulty urinating, dysuria - Neurological Neurological: Absent: abnormal gait, abnormal speech, behavioral changes, confusion, dizziness - Psychiatric Psychiatric: Absent: anxiety - Endocrine Endocrine: Absent: cold intolerance, fatigue Medical,Surgical,& Family Hx - Medical History Cardio: History of: CAD (s/p CABG), Hypertension, [place], Valvular Heart Disease (S/ p mechanical valve replacement), Cardiovascular Problems No history of: Aneurysm, Cardiac Dysrhythmia, Cerebrovascular Disease, Congenital Heart Disease, CHF, Pacemaker, PVD Psychological: History of: Depression No history of: Anxiety Disorders, ADHD, Behavior Problems, Bipolar Disorder, Previous Suicide Attempt, Psychiatric/Substance Abuse Tx, Schizophrenia, Violent Behavior, Psychiatric Problems Neurology: History of: TIA No history of: Brain Aneurysm, Cerebral Hemorrhage, Cerebrovascular Accident , Cerebral Palsy, Dementia, Migraine, Multiple Sclerosis, Parkinson's Disease, Peripheral Neuropathy, Seizures, Vertigo, Neurologocal Cancer HEENT: History of: Eye Problem (NEAR SIGHTED FAR SIGHTED) No history of: Ear Problem, Dental Problems, Glaucoma, Oral Cancer, HEENT Problems Endocrine: History of: Diabetes Mellitus (NIDDM), Dyslipidemia, Thyroid Disorder No history of: Adrenal Disease, Diabetes Mellitus (IDDM), Endocrine Cancer, Endocrine Problems Rheumatology: No history of;: Fibromyalgia, Gout, Myasthenia Gravis, Psoriasis, Rheumatoid Arthritis, Sjogrens, Systemic Lupus Erythematosus, Rheumatological Problems Respiratory: No history of: Asthma, Bronchitis, COPD, Intubation, Obstructive Sleep Apnea (STATES THAT SHE WAS TESTED AT [facility] AND DOESNT HAVE DALLIN), Pulmonary Embolism, Pulmonary Hypertension, Pneumonia, Lung Cancer, Respiratory Problems Renal: History of: Renal Failure, Renal Problems (CKI) No history of: Renal (Kidney) Cancer, Dialysis Genitourinary: History of: Kidney Stones No history of: Bladder Problem, Recurring Urinary Tract Infections, Genitourinary Cancer, Problems Gastrointestinal: History of: Diverticulitis/ Diverticulosis (left-sided diverticulosis), GERD, Gastrointestinal Bleed (multiple small bowel AVMs, or mild gastritis), Polyps (sigmoid hyperplastic polyps), GI Problems No history of: Bowel Obstruction, Clostridium Difficile, Crohn's Disease, Esophageal Varices, Hemorrhoids, Hematochezia, Hepatitis, Liver Problems, Pancreatitis, Ulcerative Colitis, Gastrointestinal Cancer Musculoskeletal: No history of: Amputation, Back/Neck Problems, Degenerative Disk Disease, Herniated Disk, Osteoporosis, Musculoskeletal Cancer, Musculoskeletal Problems Hematology: History of: Anemia No history of: Blood Transfusion Reaction, Bleeding Problems, Clotting Problems, Sickle Cell Disease, Hematologic Cancer, Blood Disorders Reproductive: History of: Reproductive Problems No history of: Abnormal Pap Smear, Breast Cancer, Endometriosis, Ectopic , Ovarian Cysts, Complication, Sexually Transmitted Disorders , Reproductive Cancer Other: No history of: Anesthesia Reactions, Anaphylaxis, Cancer, Eczema, HIV, Malignant Hyperthermia, MRSA, Vancomycin-Resistant Enterococci, Skin Problems, Miscellaneous Medical Problems - Surgical History Cardiac Surgeries: Sugical HX of: Cardiac Catheterization (with stents), Cardiac Surgery (bypass) Patient Denies: Femoral-Popliteal Bypass Graft, Carotid Endarterectomy, Internal Defibrillator, Vascular Access Devices Thoracic Surgeries: Patient denies;: Kidney (Renal Surgery), Lithotripsy, Nephrectomy, Organ Transplant, Lobectomy Neurologic Surgeries: Patient denies: Brain Aneurysm, Cerebral Hemorrhage, Neurologic Surgery HEENT Surgeries: Patient denies: Carotid Endarterectomy, Eye Surgery, Thyroid Surgery, Tonsilectomy & Adenoidectomy Abdominal Surgeries: Surgical HX of: Colonoscopy, EGD Patient denies: Abdominal Surgery, Appendectomy, Cholecystectomy, Gastric Bypass Surgery, Hernia Repair, Splenectomy Reproductive Surgeries: Surgical HX of;: Gynecologic Surgery, Hysterectomy Patient denies;: Breast Surgery, Section, Cystoscopy, Dilation and Curettage, Genitourinary Surgery, Tubal Ligation Orthopedic Surgeries: Patient denies;: Implanted Devices, Orthopedic Surgery, Spinal Surgery, Total Hip Replacement, Total Knee Replacement - Family History Family History: Reports;: Family Cancer (MOTHER CERVICAL), Family Stroke (FATHER ) Denies;: Family Anesthesia Reaction, Family Diabetes, Family Heart Disease, Family Hypertension, Family Psychiatric Problems - Social History Smoking Status: Current every day smoker Frequency of Alcohol Use: None Type of Drug Use: None Cardiology Physical Exam - Constitutional Vitals: Vital Signs Temp Pulse Resp BP Pulse Ox 98.6 F 120 H 22 215/103 80 L 03/09/17 12:05 03/09/17 12:05 03/09/17 12:05 03/09/17 12:05 03/09/17 12:05 Intake and Output 03/08/17 03/09/17 03/09/17 23:59 07:59 15:59 Other: Weight 195 lb Patient Weight 03/09/17 23:59 Weight 195 lb Exam: General: Appears well developed, well nourished, no apparent distress HEENT: Normocephalic, atraumatic Neck: Supple Neck, Midline Trachea, 4 cm JVD Cardiac: Regular rhythm, 2 out of 6 systolic murmur, crisp mechanical S1 no gallop, no rub Chest: She has a bandage on her left chest from recent mastectomy Lungs: Clear to auscultation, No Wheeze, Rales, Rhonchi Neuro: Cranial Nerve 2-12 Intact, Motor Function Grossly Intact Abdomen: Soft, Active Bowel Sounds, No Masses, No Pulsations/Bruits Skin: Normal color, no rash Extremities: No Clubbing, No Cyanosis, trace edema, Normal Upper Extr. Pulses Musculoskeletal: No acute abnormality noted Psychiatric: The patient does not appear to be anxious or depressed Result/EKG - Labs CBC & BMP: 03/09/17 12:28 03/09/17 12:28 Lab Results: I have reviewed the past 24 hour labs Labs: Laboratory Results - last 24 hr 03/09/17 03/09/17 03/09/17 12:28 12:28 12:28 WBC 10.0 RBC 3.46 L Hgb 9.2 L Hct 30.0 L MCV 86.7 L MCH 27 MCHC 30.7 L RDW 19.9 H Plt Count 338 MPV 11.0 Neut % (Auto) 84.6 H Lymph % (Auto) 9.0 L [place] % (Auto) 4.4 Eos % (Auto) 1.3 Baso % (Auto) 0.3 Neut # (Auto) 8.5 H Lymph # (Auto) 0.9 L [place] # (Auto) 0.4 Eos # (Auto) 0.1 Baso # (Auto) 0.0 Immature Gran % 0.4 Nucleated RBC % 0.0 Immature Gran # 0.04 Nucleated RBCs # 0.00 Immature Plt Fraction 0.0 INR 5.3 H* PT Patient/Control Mix 62.9 D Circ Anticoag PTT 53.9 H Sodium 142 Potassium 4.2 Chloride 102 Carbon Dioxide 33 H Anion Gap 11.2 BUN 24 H Creatinine 1.50 H GFR Calculation 46 BUN/Creatinine Ratio 16.00 Glucose 166 H Calculated Osmolality 290.1 Calcium 8.9 Magnesium 1.7 L Total Bilirubin 0.90 AST 24 ALT 30 Alkaline Phosphatase 115 Troponin I 0.098 H B-Natriuretic Peptide Total Protein 8.2 Albumin 3.1 L Globulin 5.1 H Albumin/Globulin Ratio 0.6 L Urine Color Urine Appearance Urine pH Ur Specific [place] Urine Protein Urine Glucose (UA) Urine Ketones Urine Blood Urine Nitrate Urine Bilirubin Urine Urobilinogen Urine Leukocytes Urine RBC Urine WBC Ur Squamous Epith Cells Urine Bacteria Urine Mucus Ur Culture Indicated? 03/09/17 03/09/17 12:28 12:45 WBC RBC Hgb Hct MCV MCH MCHC RDW Plt Count MPV Neut % (Auto) Lymph % (Auto) [place] % (Auto) Eos % (Auto) Baso % (Auto) Neut # (Auto) Lymph # (Auto) [place] # (Auto) Eos # (Auto) Baso # (Auto) Immature Gran % Nucleated RBC % Immature Gran # Nucleated RBCs # Immature Plt Fraction INR PT Patient/Control Mix Circ Anticoag PTT Sodium Potassium Chloride Carbon Dioxide Anion Gap BUN Creatinine GFR Calculation BUN/Creatinine Ratio Glucose Calculated Osmolality Calcium Magnesium Total Bilirubin AST ALT Alkaline Phosphatase Troponin I B-Natriuretic Peptide 2242 H Total Protein Albumin Globulin Albumin/Globulin Ratio Urine Color Colorless Urine Appearance Clear Urine pH 7.0 Ur Specific [place] 1.004 Urine Protein Negative Urine Glucose (UA) Negative Urine Ketones Negative Urine Blood Negative Urine Nitrate Negative Urine Bilirubin Negative Urine Urobilinogen < 2.0 H Urine Leukocytes Negative Urine RBC 2 Urine WBC <1 Ur Squamous Epith Cells Occasional Urine Bacteria Occasional Urine Mucus Occasional Ur Culture Indicated? Not indicated - Diagnostic Findings Procedure: Chest x-ray: report reviewed by me - EKG EKG results: interpreted by me EKG shows: tachycardia I, Jacek Chakraborty MD, personally performed the services described in this documentation, ascribed by Bettina Fajardo NP in my presence, and it is both accurate and complete 618 .
[2017-03-09] MEDS: INSULIN LISPRO 100 UNIT/ML SUBCUT SCH ×2 (17:03→21:33)
[2017-03-09] MEDS: NITROGLYCERIN 2% OINT 1 INCH/GM PACK TOP SCH (17:03)
[2017-03-09] MEDS: FUROSEMIDE 40 MG/4 ML VIAL IV SCH (17:20)
[2017-03-10] MEDS: NITROGLYCERIN 2% OINT 1 INCH/GM PACK TOP SCH ×4 (01:31→18:02)
--- NOTE | 2017-03-10 06:27 | EKG Report ---
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
[2017-03-10 06:31] LABS: Basophils % 0.4 % (0.0-0.8); Eosinophils # 0.3 10*3/uL (0.0-0.87); Eosinophils % 3.6 % (0.00-10.9); Immature Granulocytes % 0.4 %; Immature Granulocytes Absolute 0.03 #; Lymphocytes # 0.7 10*3/uL (1.4-4.0); Lymphocytes % 9.2 % (21.3-54.2); Mean Corpuscular HGB Conc 30.8 GM/DL (32-36); Mean Corpuscular Hemoglobin 27 PG (27-34); Mean Corpuscular Volume 87.5 FL (87-102); Mean Platelet Volume 11.6 FL (9.6-12.0); Monocytes # 0.5 10*3/uL (0.11-0.8); Monocytes % 5.6 % (1.7-12.7); Neutrophils # 6.5 10*3/uL (1.4-7.4); Neutrophils % 80.8 % (38.7-73.9); Platelet Count 268 T/CUMM (130-400); Red Blood Count 2.97 MC/CUMM (3.8-5.5); Red Cell Distribution Width 20.1 % (9.3-17.3); White Blood Count 8.1 T/CUMM (4-12)
[2017-03-10 06:47] LABS: INR 3.9
[2017-03-10 06:54] LABS: PT Patient Result 44.8 SECS
[2017-03-10 06:57] LABS: INR 3.9
[2017-03-10 06:58] LABS: PT Patient Result 44.5 SECS; Partial Thromboplastin Time 56.9 SECS (0-40)
[2017-03-10 07:08] LABS: Calcium 8.4 MG/DL (8.5-10.1); Magnesium 2.2 MG/DL (1.8-2.4); Osmolality,Calculated 290.1 MOS/KG (273-304)
[2017-03-10] MEDS: INSULIN LISPRO 100 UNIT/ML SUBCUT SCH ×4 (08:42→22:13)
[2017-03-10] MEDS: PANTOPRAZOLE 40 MG TABLET PO SCH (08:42)
[2017-03-10] MEDS: CARVEDILOL 25 MG TABLET PO SCH ×2 (08:42→17:23)
[2017-03-10] MEDS: FUROSEMIDE 40 MG/4 ML VIAL IV SCH ×2 (09:18→18:01)
[2017-03-10 12:08] LABS: Troponin I Only 0.267 NG/ML (0.00-0.045)
--- NOTE | 2017-03-10 18:33 | Cardiology Progress Note ---
Scotty James Lesley, NP, am scribing for, and in the presence of, Sherrie Armstrong MD 18:33. Assessment and Plan - Time spent with patient Time spent with patient: Greater than 30 minutes (Record review, assessment, and documentation) (1) History of heart valve replacement with mechanical valve Status: Chronic Assessment and plan: SEE PLAN LISTED BELOW Current Visit: No (2) Chronic anticoagulation Status: Chronic Assessment and plan: SEE PLAN LISTED BELOW Current Visit: No (3) Coronary artery disease Status: Chronic Assessment and plan: SEE PLAN LISTED BELOW Current Visit: No (4) Congestive heart failure Status: Chronic Assessment and plan: SEE PLAN LISTED BELOW Current Visit: No (5) Chronic renal insufficiency Status: Chronic Assessment and plan: SEE PLAN LISTED BELOW Current Visit: Yes (6) Anemia Status: Chronic Assessment and plan: SEE PLAN LISTED BELOW Current Visit: No Cardiology - PN: Subj Interval history: 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 Yañez is a 66 year old female, who is known to Dr. Gant. History of diabetes type 2, hypertension, CAD status post CABG, stent placement, dyslipidemia, obesity, MECHANICAL MITRAL VALVE REPLACEMENT, chronic anticoagulation, iron deficiency anemia, chronic renal insufficiency, smoker, chronic angina, and severe ischemic cardiomyopathy. Echocardiogram done shows mild concentric LV hypertrophy with diastolic dysfunction, LVEF 20% with global hypokinesis, and severe hypokinesis of the inferior wall. The patient reports that last night when she laid down to go to sleep she had some orthopnea and dyspnea. The symptoms were moderate in severity and lasted for several hours. There were no specific exacerbating or relieving factors. There was no associated nausea or diaphoresis. She denied any palpitations or syncope. She reports she went to the emergency room at [facility], and was given Lasix IV. She reports that she "filled up a bag" with urine there, and was subsequently transferred here and has "filled up another one". She was actually already feeling back to normal by the time I saw her. On 02/20/17, the patient was admitted at [facility] for left mastectomy due to breast cancer. She tolerated this well, however her hospital stay was extended while adjusting her coumadin for a therapeutic INR prior to discharge. She has not she reports that she saw Dr. Alcazar last week for a checkup, and has an upcoming appointment with an oncologist. She has a dressing intact to left chest wall today. The patient was seen in the ER today. She states she is breathing much better/ back to baseline after receiving IV Lasix. She is on oxygen via nasal cannula, 2 L. She has not had any anginal type symptoms. Sh Blood pressure has lowered to 144/93, O2 saturations 90 no percent on 2 L nasal cannula, telemetry shows sinus tachycardia. Labs reviewed: Hemoglobin 9.2, hematocrit 30, this has improved since her discharge on 03/01/17. Sodium 142, potassium 4.2 creatinine 1.5, BUN 24, glucose 166, magnesium 1.7, troponin I 0.098, BNP 2242, urinalysis negative. INR is 5.3. EKG shows sinus tachycardia. 03/10/17: She did well overnight, she denies dyspnea and chest pain. Vital signs stable today. Labs reviewed: Drop noted in hemoglobin and hematocrit, 8 and 26 respectively. INR is 3.9. Creatinine 1.6, BUN 26, glucose 157, troponins cycled and peaked at 0.428, 0.267 this morning. She has remained without complaints of angina during this hospitalization. EKG shows sinus rhythm. Plan to hold Coumadin again today and recheck INR, hemoglobin, and hematocrit again in the morning. We will also adjust her daily Coumadin dose upon discharge. ASSESSMENT/PLAN: 1. CONGESTIVE HEART FAILURE -continue diuresis, strict I's and O's. The patient is already dramatically better/back to baseline. She was asking when she could go home. 2. CHRONIC KIDNEY DISEASE -continue to monitor creatinine closely. 3. HISTORY OF MECHANICAL HEART VALVE REPLACEMENT -monitor INR, and maintain therapeutic. 4. KNOWN CAD -(previous CABG and stent placement). She denies any anginal symptoms. She does not have anginal systems, despite troponin elevation. 5. CHRONIC ANTICOAGULATION -INR is 5.3, hold Coumadin recheck INR in the AM. 6. SEVERE CARDIOMYOPATHY: On previous testing she had a severe cardiomyopathy with an ejection fraction of approximately 20%. 7. MECHANICAL MITRAL VALVE REPLACEMENT: Clinically and by exam this appears to be functioning normally. There is a crisp click. Recent echo showed normal function. She is on proper anticoagulation. 8. ANEMIA - chronic, however she had a drop in hemoglobin and hematocrit today , will recheck in the AM. Exam (Progress Note) - Constitutional Vitals: Period Temp Pulse Resp BP Sys/Eli Pulse Ox Last 24 Hr 96.9 F-97.6 F 68-101 16-20 132-207/76-89 95-99 Exam: General: [Appears well with no apparent distress.] [Pleasant and cooperative. ] [Appears comfortable.] HEENT: [PERRL, normocephalic, atraumatic]. [Mucous membranes moist.] [No jaundice noted.] [Conjunctiva moist and clear, sclerae anicteric.] Neck: [No JVD/HJR, no thyromegaly or lymphadenopathy noted.] [ No carotid bruit appreciated.] Cardiac: [Regular rate and rhythm.] [Mechanical S2, no murmur, rub, or gallop. ] [PMI is nondisplaced.] Lungs: [Clear to auscultation without accessory muscle use to assist the respiratory pattern.] [Oxygen in use via nasal cannula.] Abdomen: [Soft, bowel sounds normoactive.] [Nontender and nondistended.] [No abdominal bruit or thrill noted.] [No masses noted.] Musculoskeletal: [No fluid collection.] [Full range of motion is noted.] Extremities: [No clubbing, cyanosis noted.] [ No edema noted.] [Upper extremity pulses 2+.] [Lower extremity pulses 2+.] [Capillary refill less than 3 seconds.] Skin: [No unusual lesions or rashes.] [No skin breakdown appreciated.] Neuro: [Awake, alert and oriented 3.] [Moves all extremities well without hemiparesis or paralysis.] [No essential tremor is appreciated.] Result/EKG - Labs CBC & BMP: 03/10/17 06:21 03/10/17 06:21 Lab Results: I have reviewed the past 24 hour labs Labs: Laboratory Results - last 24 hr 03/09/17 03/09/17 03/09/17 15:06 16:56 18:02 WBC RBC Hgb Hct MCV MCH MCHC RDW Plt Count MPV Neut % (Auto) Lymph % (Auto) Chambers % (Auto) Eos % (Auto) Baso % (Auto) Neut # (Auto) Lymph # (Auto) Chambers # (Auto) Eos # (Auto) Baso # (Auto) Immature Gran % Nucleated RBC % Immature Gran # Nucleated RBCs # Immature Plt Fraction INR PT Patient/Control Mix Circ Anticoag PTT Sodium Potassium Chloride Carbon Dioxide Anion Gap BUN Creatinine GFR Calculation BUN/Creatinine Ratio Glucose POC Glucose 120 H Calculated Osmolality Calcium Magnesium Total Creatine Kinase CK-MB (CK-2) Troponin I 0.207 H D 0.361 H D 03/09/17 03/09/17 03/10/17 19:48 20:56 06:21 WBC RBC Hgb Hct MCV MCH MCHC RDW Plt Count MPV Neut % (Auto) Lymph % (Auto) Chambers % (Auto) Eos % (Auto) Baso % (Auto) Neut # (Auto) Lymph # (Auto) Chambers # (Auto) Eos # (Auto) Baso # (Auto) Immature Gran % Nucleated RBC % Immature Gran # Nucleated RBCs # Immature Plt Fraction INR 3.9 PT Patient/Control Mix 44.5 D Circ Anticoag PTT 56.9 H Sodium Potassium Chloride Carbon Dioxide Anion Gap BUN Creatinine GFR Calculation BUN/Creatinine Ratio Glucose POC Glucose 152 H Calculated Osmolality Calcium Magnesium Total Creatine Kinase CK-MB (CK-2) Troponin I 0.428 H 03/10/17 03/10/17 03/10/17 06:21 06:21 06:21 WBC 8.1 RBC 2.97 L Hgb 8.0 L Hct 26.0 L MCV 87.5 MCH 27 MCHC 30.8 L RDW 20.1 H Plt Count 268 D MPV 11.6 Neut % (Auto) 80.8 H Lymph % (Auto) 9.2 L Chambers % (Auto) 5.6 Eos % (Auto) 3.6 Baso % (Auto) 0.4 Neut # (Auto) 6.5 Lymph # (Auto) 0.7 L Chambers # (Auto) 0.5 Eos # (Auto) 0.3 Baso # (Auto) 0.0 Immature Gran % 0.4 Nucleated RBC % 0.0 Immature Gran # 0.03 Nucleated RBCs # 0.00 Immature Plt Fraction 0.0 INR 3.9 PT Patient/Control Mix 44.8 Circ Anticoag PTT Sodium 142 Potassium 4.0 Chloride 103 Carbon Dioxide 36 H Anion Gap 7.0 BUN 26 H Creatinine 1.60 H GFR Calculation 43 BUN/Creatinine Ratio 16.00 Glucose 157 H POC Glucose Calculated Osmolality 290.1 Calcium 8.4 L Magnesium 2.2 Total Creatine Kinase CK-MB (CK-2) Troponin I 03/10/17 03/10/17 03/10/17 08:02 10:49 11:41 WBC RBC Hgb Hct MCV MCH MCHC RDW Plt Count MPV Neut % (Auto) Lymph % (Auto) Chambers % (Auto) Eos % (Auto) Baso % (Auto) Neut # (Auto) Lymph # (Auto) Chambers # (Auto) Eos # (Auto) Baso # (Auto) Immature Gran % Nucleated RBC % Immature Gran # Nucleated RBCs # Immature Plt Fraction INR PT Patient/Control Mix Circ Anticoag PTT Sodium Potassium Chloride Carbon Dioxide Anion Gap BUN Creatinine GFR Calculation BUN/Creatinine Ratio Glucose POC Glucose 154 H 166 H Calculated Osmolality Calcium Magnesium Total Creatine Kinase 97 CK-MB (CK-2) 1.7 Troponin I 0.267 H D - EKG EKG results: interpreted by me, sinus rhythm Specialty Discharge - Follow Up or Referrals Follow up with: Henrik Gant MD [Physician] - 1 Week (PT/INR prior to appt, BMP with Mag, CBC ) Nathaniel James Jennifer, MD, personally performed the services described in this documentation, ascribed by Bettina Fajardo NP in my presence, and it is both accurate and complete [id number] .
[2017-03-10] MEDS: SODIUM CHLORIDE 0.9% 1,000 ML IV SCH (22:03)
[2017-03-11] MEDS: NITROGLYCERIN 2% OINT 1 INCH/GM PACK TOP SCH ×4 (01:54→15:11)
[2017-03-11 06:06] LABS: Basophils % 0.3 % (0.0-0.8); Eosinophils # 0.3 10*3/uL (0.0-0.87); Hematocrit 25.6 VOL% (35.7-47.0); Hemoglobin 7.8 GM/DL (12.0-16.0); Immature Granulocytes % 0.5 %; Immature Granulocytes Absolute 0.03 #; Lymphocytes # 0.9 10*3/uL (1.4-4.0); Mean Corpuscular HGB Conc 30.5 GM/DL (32-36); Mean Corpuscular Hemoglobin 27 PG (27-34); Mean Corpuscular Volume 87.1 FL (87-102); Mean Platelet Volume 11.5 FL (9.6-12.0); Monocytes # 0.4 10*3/uL (0.11-0.8); Monocytes % 6.4 % (1.7-12.7); Neutrophils # 4.5 10*3/uL (1.4-7.4); Neutrophils % 73.8 % (38.7-73.9); Platelet Count 260 T/CUMM (130-400); Red Blood Count 2.94 MC/CUMM (3.8-5.5); Red Cell Distribution Width 19.7 % (9.3-17.3); White Blood Count 6.1 T/CUMM (4-12)
[2017-03-11 06:42] LABS: Calcium 8.2 MG/DL (8.5-10.1); INR 3.4; Osmolality,Calculated 289.1 MOS/KG (273-304); Potassium 3.9 MMOL/L (3.5-5.1)
[2017-03-11] MEDS: SODIUM CHLORIDE 0.9% 1,000 ML IV SCH ×2 (06:59→21:28)
[2017-03-11] MEDS: PANTOPRAZOLE 40 MG TABLET PO SCH (09:10)
[2017-03-11] MEDS: CARVEDILOL 25 MG TABLET PO SCH ×2 (09:10→16:59)
[2017-03-11] MEDS: INSULIN LISPRO 100 UNIT/ML SUBCUT SCH ×4 (09:11→21:20)
[2017-03-11] MEDS: FUROSEMIDE 40 MG/4 ML VIAL IV SCH ×2 (09:12→16:54)
[2017-03-11] MEDS ORDERED: SODIUM CHLORIDE 0.9% 250 ML IV PRN (10:51)
--- NOTE | 2017-03-11 12:13 | Physician Query Form ---
CLICK EDIT DOCUMENT TO SELECT QUERY ANSWER --> OK --> SIGN Chelsie Orellana RN Clinical Bonded Structures Repairer W) [phone] (f) [phone] [email or web address] PROVIDERS: Make your selection(s) from the choices in EACH section by typing an "x" and enter comments in the comment section. Please use your independent medical judgment in providing your response. This request does not imply that any particular answer is desired or expected. CLINICAL INDICATORS: (Providers should not edit this section) Based on documentation of "acute CHF.Echocardiogram done 02/02/17 shows mild concentric LV hypertrophy with diastolic dysfunction, LVEF 20% with global hypokinesis, and severe hypokinesis of the inferior wall", CNC=[id number]. Pt. treated with IV Lasix. Please provide further specificity regarding CHF. TYPE: ( x) Systolic (HFrEF - heart failure with reduced systolic function/EF) ( ) Diastolic (HFpEF - heart failure with preserved systolic function/EF) ( ) Combined Systolic/Diastolic ( ) Other, please specify: ( ) Clinically unable to determine COMMENTS: PLEASE ALSO DOCUMENT RESPONSE IN PROGRESS NOTES AND/OR DISCHARGE SUMMARY Use of terms such as suspected, likely, or probable (associated with a specific diagnosis that is being evaluated, monitored, or treated as if it exists) are acceptable and can be restated in the discharge summary if not ruled out. MTDD
--- NOTE | 2017-03-11 12:17 | Physician Query Form ---
CLICK EDIT DOCUMENT TO SELECT QUERY ANSWER --> OK --> SIGN Chelsie Orellana RN Clinical Pathology Laboratory Technologist W) [phone] (f) [phone] [email or web address] PROVIDERS: Make your selection(s) from the choices in EACH section by typing an "x" and enter comments in the comment section. Please use your independent medical judgment in providing your response. This request does not imply that any particular answer is desired or expected. CLINICAL INDICATORS: (Providers should not edit this section) Based on documentation of "chronic renal insufficiency", creatinine of 1.70 with a GFR of 40. Please stage the chronic renal failure. Clarify which of the following most accurately represents the patient's renal status: Chronic Kidney Disease Stages Source: National Kidney Disease Foundation ( ) Stage I (eGFR > or = 90) (x ) Stage II (eGFR 60 - 89) ( ) Stage III (eGFR 30 - 59) ( ) Stage IV (eGFR 15 - 29) ( ) Stage V (eGFR < 15 or dialysis) COMMENTS: PLEASE ALSO DOCUMENT RESPONSE IN PROGRESS NOTES AND/OR DISCHARGE SUMMARY Use of terms such as suspected, likely, or probable (associated with a specific diagnosis that is being evaluated, monitored, or treated as if it exists) are acceptable and can be restated in the discharge summary if not ruled out. MTDD
--- NOTE | 2017-03-11 18:19 | Cardiology Progress Note ---
Scotty James Lesley, NP, am scribing for, and in the presence of, Sherrie Armstrong MD 18:19. Assessment and Plan - Time spent with patient Time spent with patient: Greater than 30 minutes (Record review, assessment, and documentation) (1) History of heart valve replacement with mechanical valve Status: Chronic Assessment and plan: SEE PLAN LISTED BELOW Current Visit: No (2) Chronic anticoagulation Status: Chronic Assessment and plan: SEE PLAN LISTED BELOW Current Visit: No (3) Coronary artery disease Status: Chronic Assessment and plan: SEE PLAN LISTED BELOW Current Visit: No (4) Congestive heart failure Status: Chronic Assessment and plan: SEE PLAN LISTED BELOW Current Visit: No (5) Chronic renal insufficiency Status: Chronic Assessment and plan: SEE PLAN LISTED BELOW Current Visit: Yes (6) Anemia Status: Chronic Assessment and plan: SEE PLAN LISTED BELOW Current Visit: No Cardiology - PN: Subj Interval 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 Yañez is a 66 year old female, who is known to Dr. Gant. History of diabetes type 2, hypertension, CAD status post CABG, stent placement, dyslipidemia, obesity, MECHANICAL MITRAL VALVE REPLACEMENT, chronic anticoagulation, iron deficiency anemia, chronic renal insufficiency, smoker, chronic angina, and severe ischemic cardiomyopathy. Echocardiogram done shows mild concentric LV hypertrophy with diastolic dysfunction, LVEF 20% with global hypokinesis, and severe hypokinesis of the inferior wall. The patient reports that last night when she laid down to go to sleep she had some orthopnea and dyspnea. The symptoms were moderate in severity and lasted for several hours. There were no specific exacerbating or relieving factors. There was no associated nausea or diaphoresis. She denied any palpitations or syncope. She reports she went to the emergency room at [facility], and was given Lasix IV. She reports that she "filled up a bag" with urine there, and was subsequently transferred here and has "filled up another one". She was actually already feeling back to normal by the time I saw her. On 02/20/17, the patient was admitted at [facility] for left mastectomy due to breast cancer. She tolerated this well, however her hospital stay was extended while adjusting her coumadin for a therapeutic INR prior to discharge. She has not she reports that she saw Dr. Alcazar last week for a checkup, and has an upcoming appointment with an oncologist. She has a dressing intact to left chest wall today. The patient was seen in the ER today. She states she is breathing much better/ back to baseline after receiving IV Lasix. She is on oxygen via nasal cannula, 2 L. She has not had any anginal type symptoms. Sh Blood pressure has lowered to 144/93, O2 saturations 90 no percent on 2 L nasal cannula, telemetry shows sinus tachycardia. Labs reviewed: Hemoglobin 9.2, hematocrit 30, this has improved since her discharge on 03/01/17. Sodium 142, potassium 4.2 creatinine 1.5, BUN 24, glucose 166, magnesium 1.7, troponin I 0.098, BNP 2242, urinalysis negative. INR is 5.3. EKG shows sinus tachycardia. 03/10/17: She did well overnight, she denies dyspnea and chest pain. Vital signs stable today. Labs reviewed: Drop noted in hemoglobin and hematocrit, 8 and 26 respectively. INR is 3.9. Creatinine 1.6, BUN 26, glucose 157, troponins cycled and peaked at 0.428, 0.267 this morning. She has remained without complaints of angina during this hospitalization. EKG shows sinus rhythm. 03/11/17: The patient is sitting on side of bed this morning, she denies dyspnea and chest pain. Vital signs have remained stable. Labs today reveal hemoglobin 7.8 and hematocrit 25.6, no obvious signs of bleeding. We will transfuse the patient with 2 units of packed red blood cells today, and plan for discharge after transfusion. ASSESSMENT/PLAN: 1. CONGESTIVE HEART FAILURE -continue diuresis, strict I's and O's. The patient is already dramatically better/back to baseline. 2. CHRONIC KIDNEY DISEASE -continue to monitor creatinine closely. 3. HISTORY OF MECHANICAL HEART VALVE REPLACEMENT -monitor INR, and maintain therapeutic. 4. KNOWN CAD -(previous CABG and stent placement). She does not have anginal systems, despite troponin elevation. 5. CHRONIC ANTICOAGULATION -INR is 3.4, hold Coumadin recheck INR in the AM. 6. SEVERE CARDIOMYOPATHY: On previous testing she had a severe cardiomyopathy with an ejection fraction of approximately 20%. 7. MECHANICAL MITRAL VALVE REPLACEMENT: Clinically and by exam this appears to be functioning normally. There is a crisp click. Recent echo showed normal function. She is on proper anticoagulation. 8. 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 Exam (Progress Note) - Constitutional Vitals: Period Temp Pulse Resp BP Sys/Eli Pulse Ox Last 24 Hr 97.1 F-99.6 F 68-108 16-20 138-203/64-88 95-100 Exam: General: [Appears well with no apparent distress.] [Pleasant and cooperative. ] [Appears comfortable.] HEENT: [PERRL, normocephalic, atraumatic]. [Mucous membranes moist.] [No jaundice noted.] [Conjunctiva moist and clear, sclerae anicteric.] Neck: [No JVD/HJR, no thyromegaly or lymphadenopathy noted.] [ No carotid bruit appreciated.] Cardiac: [Regular rate and rhythm.] [Mechanical S2, no murmur, rub, or gallop. ] [PMI is nondisplaced.] Lungs: [Clear to auscultation without accessory muscle use to assist the respiratory pattern.] [Oxygen in use via nasal cannula.] Abdomen: [Soft, bowel sounds normoactive.] [Nontender and nondistended.] [No abdominal bruit or thrill noted.] [No masses noted.] Musculoskeletal: [No fluid collection.] [Full range of motion is noted.] Extremities: [No clubbing, cyanosis noted.] [ No edema noted.] [Upper extremity pulses 2+.] [Lower extremity pulses 2+.] [Capillary refill less than 3 seconds.] Skin: [No unusual lesions or rashes.] [No skin breakdown appreciated.] Neuro: [Awake, alert and oriented 3.] [Moves all extremities well without hemiparesis or paralysis.] [No essential tremor is appreciated.] Result/EKG - Labs CBC & BMP: 03/11/17 05:33 03/11/17 05:33 Lab Results: I have reviewed the past 24 hour labs Labs: Laboratory Results - last 24 hr 03/10/17 03/10/17 03/11/17 16:45 22:00 05:33 WBC 6.1 RBC 2.94 L Hgb 7.8 L Hct 25.6 L MCV 87.1 MCH 27 MCHC 30.5 L RDW 19.7 H Plt Count 260 MPV 11.5 Neut % (Auto) 73.8 Lymph % (Auto) 14.0 L Arthur % (Auto) 6.4 Eos % (Auto) 5.0 Baso % (Auto) 0.3 Neut # (Auto) 4.5 Lymph # (Auto) 0.9 L Arthur # (Auto) 0.4 Eos # (Auto) 0.3 Baso # (Auto) 0.0 Immature Gran % 0.5 Nucleated RBC % 0.0 Immature Gran # 0.03 Nucleated RBCs # 0.00 Immature Plt Fraction 0.0 INR PT Patient/Control Mix Sodium Potassium Chloride Carbon Dioxide Anion Gap BUN Creatinine GFR Calculation BUN/Creatinine Ratio Glucose POC Glucose 158 H 166 H Calculated Osmolality Calcium Magnesium Blood Type Antibody Screen Crossmatch 03/11/17 03/11/17 03/11/17 05:33 05:33 05:33 WBC RBC Hgb Hct MCV MCH MCHC RDW Plt Count MPV Neut % (Auto) Lymph % (Auto) Arthur % (Auto) Eos % (Auto) Baso % (Auto) Neut # (Auto) Lymph # (Auto) Arthur # (Auto) Eos # (Auto) Baso # (Auto) Immature Gran % Nucleated RBC % Immature Gran # Nucleated RBCs # Immature Plt Fraction INR 3.4 PT Patient/Control Mix 39.0 Sodium 142 Potassium 3.9 Chloride 101 Carbon Dioxide 38 H Anion Gap 6.9 BUN 26 H Creatinine 1.70 H GFR Calculation 40 BUN/Creatinine Ratio 15.00 Glucose 133 H POC Glucose Calculated Osmolality 289.1 Calcium 8.2 L Magnesium 2.0 Blood Type A POSITIVE Antibody Screen Negative Crossmatch See Detail 03/11/17 03/11/17 08:39 11:42 WBC RBC Hgb Hct MCV MCH MCHC RDW Plt Count MPV Neut % (Auto) Lymph % (Auto) Arthur % (Auto) Eos % (Auto) Baso % (Auto) Neut # (Auto) Lymph # (Auto) Arthur # (Auto) Eos # (Auto) Baso # (Auto) Immature Gran % Nucleated RBC % Immature Gran # Nucleated RBCs # Immature Plt Fraction INR PT Patient/Control Mix Sodium Potassium Chloride Carbon Dioxide Anion Gap BUN Creatinine GFR Calculation BUN/Creatinine Ratio Glucose POC Glucose 155 H 104 Calculated Osmolality Calcium Magnesium Blood Type Antibody Screen Crossmatch - EKG EKG results: interpreted by me, sinus rhythm Specialty Discharge - Follow Up or Referrals Follow up with: Henrik Gant MD [Physician] - 03/25/17 9:15 am (PT/INR prior to appt, BMP with Mag, CBC) I, Sherrie Armstrong MD, personally performed the services described in this documentation, ascribed by Bettina Fajardo NP in my presence, and it is both accurate and complete .
[2017-03-11 21:34] LABS: Hematocrit 31.9 VOL% (35.7-47.0)
[2017-03-11 21:35] LABS: Hemoglobin 10.1 GM/DL (12.0-16.0)
[2017-03-11] MEDS: hydrALAZINE 25 MG TABLET PO SCH (22:19)
[2017-03-11] MEDS ORDERED: AMITRIPTYLINE 25 MG TABLET PO SCH (22:30)
[2017-03-12 05:23] LABS: Basophils % 0.3 % (0.0-0.8); Eosinophils # 0.4 10*3/uL (0.0-0.87); Eosinophils % 6.5 % (0.00-10.9); Hemoglobin 9.3 GM/DL (12.0-16.0); Immature Granulocytes % 0.3 %; Immature Granulocytes Absolute 0.02 #; Lymphocytes # 0.8 10*3/uL (1.4-4.0); Lymphocytes % 12.6 % (21.3-54.2); Mean Corpuscular HGB Conc 32.1 GM/DL (32-36); Mean Corpuscular Hemoglobin 28 PG (27-34); Mean Corpuscular Volume 86.8 FL (87-102); Mean Platelet Volume 11.8 FL (9.6-12.0); Monocytes # 0.4 10*3/uL (0.11-0.8); Monocytes % 6.8 % (1.7-12.7); NRBC # 0.05 10*3/uL; Neutrophils # 4.4 10*3/uL (1.4-7.4); Neutrophils % 73.5 % (38.7-73.9); Platelet Count 208 T/CUMM (130-400); Red Blood Count 3.34 MC/CUMM (3.8-5.5); Red Cell Distribution Width 18.6 % (9.3-17.3)
[2017-03-12 05:38] LABS: INR 2.5
[2017-03-12] MEDS: hydrALAZINE 25 MG TABLET PO SCH ×2 (05:45→12:01)
[2017-03-12 05:48] LABS: PT Patient Result 27.8 SECS
[2017-03-12 05:54] LABS: Calcium 8.1 MG/DL (8.5-10.1); Magnesium 1.9 MG/DL (1.8-2.4); Osmolality,Calculated 293.7 MOS/KG (273-304); Potassium 3.6 MMOL/L (3.5-5.1)
[2017-03-12] MEDS: PANTOPRAZOLE 40 MG TABLET PO SCH (08:31)
[2017-03-12] MEDS: CARVEDILOL 25 MG TABLET PO SCH (08:31)
[2017-03-12] MEDS: INSULIN LISPRO 100 UNIT/ML SUBCUT SCH ×2 (08:31→12:00)
[2017-03-12] MEDS: FUROSEMIDE 40 MG/4 ML VIAL IV SCH (08:32)
[2017-03-12 11:57] VITALS: BP 137/79
--- NOTE | 2017-03-12 12:48 | Discharge Summary ---
Addendum entered and electronically signed by Adelaida Garzon NP 03/12/17 13: 27: Patient came in with mild volume overload. Home meds include Lasix 40mg orally daily. Will increase Lasix to 40mg orally BID. BMP in one week at [facility] when getting INR. Original Note: Scotty James Lesley, THERESA, am scribing for, and in the presence of, Adelaida Garzon NP 12:47. 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 Yañez is a 66 year old female with known history of diabetes type 2, hypertension, CAD status post CABG, stent placement, dyslipidemia, obesity, MECHANICAL MITRAL VALVE REPLACEMENT, chronic anticoagulation, iron deficiency anemia, chronic renal insufficiency, smoker, chronic angina, and severe ischemic cardiomyopathy. Echocardiogram done 02/02/17 shows mild concentric LV hypertrophy with diastolic dysfunction, LVEF 20% with global hypokinesis, and severe hypokinesis of the inferior wall. She was recently diagnosed with Breast CA and underwent left mastectomy. The patient was admitted with orthopnea and dyspnea. She was treated in the emergency room at [facility], and was given Lasix IV. She is feeling much better after diuresis. Her INR was found to be 5.9, and her Coumadin has been held. The patient reports she has been taking 7.5 mg of Coumadin 3 times a week , and 5 mg the other days. She recently underwent a left mastectomy for breast cancer and will see Oncology outpatient for further treatment. Cardiac biomarkers did trend upward, in the absence of any anginal type symptoms. EKG shows sinus rhythm. Hemoglobin and hematocrit did drop overnight to 7.8 and 25.6. The patient was found to have a AVMs in the small bowel by endoscopy done 06/2014. It was recommended that the patient could likely be managed with occasional blood transfusions and iron supplementation. In the absence of bright red blood per rectum, hematemesis, and melena she was transfused with 2 units of packed red blood cells tolerated this well. We will reduce her daily Coumadin dose to 5 mg, and the patient will follow up in clinic in one week to repeat INR after Coumadin adjustment. The patient will restart Coumadin today at 5mg. Hemoglobin and Hematocrit today are 9.3 and 29 respectively, INR is 2.5. The patient will be discharged home today. DISCHARGE MEDICATIONS: 1. Coreg 25mg BID 2. Lasix 40mg daily 3. Norvasc 5mg daily 4. Isosorbide Mononitrate 60mg daily 5. Potassium Chloride 10meq TID 6. Coumadin 5mg daily 7. Apresoline 25mg BID 8. Januvia 25mg daily - Time spent with patient Time with patient DS: Less than 30 minutes (record review, assessment, and documentation) Diagnosis - Discharge Diagnosis (1) History of heart valve replacement with mechanical valve Status: Chronic (2) Chronic anticoagulation Status: Chronic (3) Coronary artery disease Status: Chronic (4) Congestive heart failure Status: Chronic (5) Chronic renal insufficiency Status: Chronic (6) Anemia Status: Chronic Specialty Discharge - Follow Up or Referrals Follow up with: Henrik Gant MD [Physician] - 03/25/17 9:15 am (PT/INR prior to appt, BMP with CARLOS Moreno) Discharge Plan - Discharge Data Disposition: Disch To Home/Self Care Condition at Discharge: Stable Discharge Diet: heart healthy Activity: resume usual activities as tolerated Hygiene: no restrictions Weight Bearing at Discharge: full weight bearing Driving: no restrictions Contact your physician if you experience:: Shortness of breath - Discharge Medications New Warfarin [Coumadin] 5 mg PO DAILY@1800 #30 tablet Continue Isosorbide Mononitrate [Isosorbide Mononitrate ER] 60 mg PO DAILY Carvedilol [Coreg] 25 mg PO BID Amitriptyline [Elavil] 25 mg PO DAILY hydrALAZINE TAB [Apresoline Tab] 25 mg PO BID sitaGLIPtin [Januvia] 25 mg PO DAILY Pantoprazole Tab [Protonix Tab] 40 mg PO DAILY Potassium Chloride 10 meq PO TID Amlodipine Besylate 5 mg PO DAILY Furosemide Tab [Lasix Tab] 40 mg PO DAILY Discontinued Warfarin [Coumadin] 5 mg PO DAILY - Follow Up or Referral Follow Up: Henrik Gant MD [Physician] - 03/25/17 9:15 am (PT/INR prior to appt, BMP with CARLOS Moreno) - Forms/Instructions Instructions: Warfarin (By mouth), Heart Failure (GEN), Chest Pain (DC), Low Sodium Diet (DC) Additional Discharge Instructions: Please have patient get INR one week at [facility]. (In addition to F/U appointment INR on the ) Exam - Constitutional Vitals: Period Temp Pulse Resp BP Sys/Eli Pulse Ox Last 24 Hr 96.9 F-97.4 F 68-94 18-20 137-188/72-88 99-100 Exam: General: [Appears well with no apparent distress.] [Pleasant and cooperative. ] [Appears comfortable.] HEENT: [PERRL, normocephalic, atraumatic]. [Mucous membranes moist.] [No jaundice noted.] [Conjunctiva moist and clear, sclerae anicteric.] Neck: [No JVD/HJR, no thyromegaly or lymphadenopathy noted.] [ No carotid bruit appreciated.] Cardiac: [Regular rate and rhythm.] [Click auscultate, no murmur, rub, or gallop.] [PMI is nondisplaced.] Lungs: [Clear to auscultation, breath sounds diminished in bases without accessory muscle use to assist the respiratory pattern.] [Oxygen in use via nasal cannula.] Abdomen: [Soft, bowel sounds normoactive.] [Nontender and nondistended.] [No abdominal bruit or thrill noted.] [No masses noted.] Musculoskeletal: [Full range of motion is noted.] Extremities: [No clubbing, cyanosis noted.] [Bilateral lower extremity 1+ edema noted.] [Upper extremity pulses 2+.] [Lower extremity pulses 2+.] [ Capillary refill less than 3 seconds.] Skin: Warm and dry. [No unusual lesions or rashes.] [No skin breakdown appreciated.] Neuro: [Awake, alert and oriented 3.] [Moves all extremities well without hemiparesis or paralysis.] [No essential tremor is appreciated.] Discharge Results Procedures and tests throughout hospitalization: Pending Orders 03/11/17 17:35 Occult Blood, Stool Routine Labs on day of discharge: Labs from last 24 hours 03/12/17 03/12/17 03/12/17 11:49 07:42 04:26 WBC RBC Hgb Hct MCV MCH MCHC RDW Plt Count MPV Neut % (Auto) Lymph % (Auto) [place] % (Auto) Eos % (Auto) Baso % (Auto) Neut # (Auto) Lymph # (Auto) [place] # (Auto) Eos # (Auto) Baso # (Auto) Immature Gran % Nucleated RBC % Immature Gran # Nucleated RBCs # Immature Plt Fraction INR PT Patient/Control Mix Sodium 145 Potassium 3.6 Chloride 102 Carbon Dioxide 38 H Anion Gap 8.6 BUN 23 H Creatinine 1.60 H GFR Calculation 43 BUN/Creatinine Ratio 14.00 Glucose 142 H POC Glucose 200 H 155 H Calculated Osmolality 293.7 Calcium 8.1 L Magnesium 1.9 Crossmatch 03/12/17 03/12/17 03/11/17 04:26 04:26 05:33 WBC 6.0 RBC 3.34 L Hgb 9.3 L Hct 29.0 L MCV 86.8 L MCH 28 MCHC 32.1 RDW 18.6 H Plt Count 208 MPV 11.8 Neut % (Auto) 73.5 Lymph % (Auto) 12.6 L [place] % (Auto) 6.8 Eos % (Auto) 6.5 Baso % (Auto) 0.3 Neut # (Auto) 4.4 Lymph # (Auto) 0.8 L [place] # (Auto) 0.4 Eos # (Auto) 0.4 Baso # (Auto) 0.0 Immature Gran % 0.3 Nucleated RBC % 0.8 Immature Gran # 0.02 Nucleated RBCs # 0.05 Immature Plt Fraction 0.0 INR 2.5 PT Patient/Control Mix 27.8 D Sodium Potassium Chloride Carbon Dioxide Anion Gap BUN Creatinine GFR Calculation BUN/Creatinine Ratio Glucose POC Glucose Calculated Osmolality Calcium Magnesium Crossmatch See Detail Laboratory Results - last 24 hr 03/11/17 03/11/17 03/11/17 05:33 11:42 17:16 WBC RBC Hgb Hct MCV MCH MCHC RDW Plt Count MPV Neut % (Auto) Lymph % (Auto) [place] % (Auto) Eos % (Auto) Baso % (Auto) Neut # (Auto) Lymph # (Auto) [place] # (Auto) Eos # (Auto) Baso # (Auto) Immature Gran % Nucleated RBC % Immature Gran # Nucleated RBCs # Immature Plt Fraction INR PT Patient/Control Mix Sodium Potassium Chloride Carbon Dioxide Anion Gap BUN Creatinine GFR Calculation BUN/Creatinine Ratio Glucose POC Glucose 104 144 H Calculated Osmolality Calcium Magnesium Blood Type A POSITIVE Antibody Screen Negative Crossmatch See Detail 03/11/17 03/11/17 03/12/17 20:45 21:29 04:26 WBC 6.0 RBC 3.34 L Hgb 10.1 L D 9.3 L Hct 31.9 L 29.0 L MCV 86.8 L MCH 28 MCHC 32.1 RDW 18.6 H Plt Count 208 MPV 11.8 Neut % (Auto) 73.5 Lymph % (Auto) 12.6 L [place] % (Auto) 6.8 Eos % (Auto) 6.5 Baso % (Auto) 0.3 Neut # (Auto) 4.4 Lymph # (Auto) 0.8 L [place] # (Auto) 0.4 Eos # (Auto) 0.4 Baso # (Auto) 0.0 Immature Gran % 0.3 Nucleated RBC % 0.8 Immature Gran # 0.02 Nucleated RBCs # 0.05 Immature Plt Fraction 0.0 INR PT Patient/Control Mix Sodium Potassium Chloride Carbon Dioxide Anion Gap BUN Creatinine GFR Calculation BUN/Creatinine Ratio Glucose POC Glucose 128 H Calculated Osmolality Calcium Magnesium Blood Type Antibody Screen Crossmatch 03/12/17 03/12/17 03/12/17 04:26 04:26 07:42 WBC RBC Hgb Hct MCV MCH MCHC RDW Plt Count MPV Neut % (Auto) Lymph % (Auto) [place] % (Auto) Eos % (Auto) Baso % (Auto) Neut # (Auto) Lymph # (Auto) [place] # (Auto) Eos # (Auto) Baso # (Auto) Immature Gran % Nucleated RBC % Immature Gran # Nucleated RBCs # Immature Plt Fraction INR 2.5 PT Patient/Control Mix 27.8 D Sodium 145 Potassium 3.6 Chloride 102 Carbon Dioxide 38 H Anion Gap 8.6 BUN 23 H Creatinine 1.60 H GFR Calculation 43 BUN/Creatinine Ratio 14.00 Glucose 142 H POC Glucose 155 H Calculated Osmolality 293.7 Calcium 8.1 L Magnesium 1.9 Blood Type Antibody Screen Crossmatch - Imaging and Cardiology Cardiology Procedure: report reviewed by me DS: Provider Consults: 03/09/17 15:24 Consult to Pastoral Services [CONS] Routine Comment: Pastoral Screen: Request Body Cleaner Visit Expected date of discharge: 03/12/17 <Sherrie Armstrong - Last Filed: 03/12/17 22:05> Diagnosis - Discharge Diagnosis (1) History of heart valve replacement with mechanical valve Status: Chronic (2) Chronic anticoagulation Status: Chronic (3) Coronary artery disease Status: Chronic (4) Congestive heart failure Status: Chronic (5) Chronic renal insufficiency Status: Chronic (6) Anemia Status: Chronic Ryann James Bonnie E, NP, personally performed the services described in this documentation, ascribed by Bettina Fajardo NP in my presence, and it is both accurate and complete 247 .
== END 2017-03-12 15:20 | disposition home or self-care (01) | DRG 291 ==
LOC: EDUNIT# → EDBD → N.ED 12:05 → N.EDINP 13:13 → N.TELEN 14:56
PROVIDERS: ADMIT Internal Medicine Cardiovascular Disease; ATTEND Internal Medicine Cardiovascular Disease

== ENCOUNTER 2018-08-12 12:22 | Inpatient (IN) ==
[2018-08-12 12:58] LABS: Basophils % 0.2 % (0.0-0.8); Eosinophils % 0.6 % (0.00-10.9); Hematocrit 23.2 VOL% (35.7-47.0); Immature Granulocytes % 0.3 %; Immature Granulocytes Absolute 0.02 #; Lymphocytes # 0.6 10*3/uL (1.4-4.0); Mean Corpuscular HGB Conc 30.2 GM/DL (32-36); Mean Corpuscular Hemoglobin 28 PG (27-34); Mean Corpuscular Volume 92.1 FL (87-102); Mean Platelet Volume 11.8 FL (9.6-12.0); Monocytes # 0.3 10*3/uL (0.11-0.8); Monocytes % 5.3 % (1.7-12.7); Neutrophils # 5.3 10*3/uL (1.4-7.4); Neutrophils % 83.6 % (38.7-73.9); Platelet Count 212 T/CUMM (130-400); Red Blood Count 2.52 MC/CUMM (3.8-5.5); Red Cell Distribution Width 18.2 % (9.3-17.3); White Blood Count 6.4 T/CUMM (4-12)
[2018-08-12] MEDS ORDERED: SODIUM CHLORIDE 0.9% 500 ML IV STA (13:00)
[2018-08-12 13:16] LABS: Alanine Aminotransferase 17 U/L (13-56); Albumin 3.3 G/DL (3.4-5.0); Alkaline Phosphatase 138 U/L (45-117); Aspartate Amino Transferase 11 U/L (0-37); Bilirubin,Total < 0.39 MG/DL (0.2-1.0); Blood Urea Nitrogen 26 MG/DL (7-18); Calcium 8.5 MG/DL (8.5-10.1); Glucose 169 MG/DL (74-106); Osmolality,Calculated 285.5 MOS/KG (273-304); Potassium 3.7 MMOL/L (3.5-5.1); Sodium 139 MMOL/L (136-145); Total Protein 7.8 G/DL (6.4-8.3)
[2018-08-12 13:28] LABS: Apearance,Urine CLEAR (Clear); Bilirubin,Urine Negative (Negative); Blood, Urine Negative (Negative); Glucose,Urine (UA) Negative (Negative); Ketones,Urine Negative (Negative); Nitrite,Urine Negative (Negative); Protein,Urine Negative; RBC,Urine 3 /HPF (0-4); Squamous Epithelial Cell,Urine Occasional /HPF (0-10); Urine Color Straw (Yellow); Urine Specific Gravity 1.006 (1.001-1.035); Urine Urobilinogen < 2.0 EU/DL (0.2-1.0); WBC,Urine 22 /HPF (0-6)
[2018-08-12] MEDS ORDERED: SODIUM CHLORIDE 0.9% 1,000 ML IV PRN ×2 (14:02→15:29)
[2018-08-12] MEDS ORDERED: ONDANSETRON 4 MG/2 ML VIAL IV PRN (14:11)
[2018-08-12] MEDS ORDERED: ACETAMINOPHEN 325 MG TABLET PO PRN (14:11)
[2018-08-12] MEDS ORDERED: NITROGLYCERIN SL 0.4 MG TABLET SL PRN (14:16)
[2018-08-12] MEDS ORDERED: FUROSEMIDE 40 MG/4 ML VIAL IV ONE (14:17)
[2018-08-12] MEDS ORDERED: GLUCAGON 1 MG VIAL IM PRN (14:18)
[2018-08-12] MEDS ORDERED: DEXTROSE 50% 25 GM/50 ML VIAL IV PRN (14:18)
[2018-08-12] MEDS ORDERED: SODIUM CHLORIDE 0.9% 1,000 ML IV SCH (14:30)
[2018-08-12 14:38] LABS: PT Patient Result 21.7 SECS
[2018-08-12] MEDS ORDERED: cefTRIAXone 1,000 MG in SYRINGE 1 EACH IV STA (14:51)
[2018-08-12 16:37] LABS: % Iron Saturation 12.4 % (18-50); Ferritin 217.2 ng/ml (8-252)
[2018-08-12 16:44] LABS: Folate 23.5 NG/ML (5.4-24.0)
[2018-08-12] MEDS: PANTOPRAZOLE 40 MG VIAL IV SCH ×2 (16:46→21:45)
[2018-08-12] MEDS: INSULIN LISPRO 100 UNIT/ML SUBCUT SCH ×2 (16:48→21:45)
[2018-08-12] MEDS ORDERED: PHYTONADIONE 10 MG/1 ML AMP SUBCUT ONE (16:54)
[2018-08-12] MEDS ORDERED: WARFARIN 5 MG TABLET PO SCH (18:00)
[2018-08-12] MEDS: amLODIPine 10 MG TABLET PO SCH (18:24)
[2018-08-12] MEDS: AMITRIPTYLINE 25 MG TABLET PO SCH (21:44)
[2018-08-12] MEDS: CARVEDILOL 25 MG TABLET PO SCH (21:44)
[2018-08-12] MEDS: chlordiazePOXIDE 10 MG CAPSULE PO SCH (21:44)
[2018-08-12 23:17] LABS: Hematocrit 27.8 VOL% (35.7-47.0)
[2018-08-12 23:24] LABS: Hemoglobin 8.7 GM/DL (12.0-16.0)
[2018-08-13 04:59] LABS: Basophils % 0.2 % (0.0-0.8); Eosinophils # 0.1 10*3/uL (0.0-0.87); Eosinophils % 1.4 % (0.00-10.9); Hematocrit 27.8 VOL% (35.7-47.0); Hemoglobin 8.6 GM/DL (12.0-16.0); Immature Granulocytes % 0.4 %; Immature Granulocytes Absolute 0.02 #; Lymphocytes # 0.8 10*3/uL (1.4-4.0); Lymphocytes % 13.5 % (21.3-54.2); Mean Corpuscular HGB Conc 30.9 GM/DL (32-36); Mean Corpuscular Hemoglobin 28 PG (27-34); Mean Corpuscular Volume 89.4 FL (87-102); Mean Platelet Volume 11.8 FL (9.6-12.0); Monocytes # 0.4 10*3/uL (0.11-0.8); Monocytes % 7.6 % (1.7-12.7); Neutrophils # 4.3 10*3/uL (1.4-7.4); Neutrophils % 76.9 % (38.7-73.9); Platelet Count 196 T/CUMM (130-400); Red Blood Count 3.11 MC/CUMM (3.8-5.5); Red Cell Distribution Width 18.4 % (9.3-17.3); White Blood Count 5.6 T/CUMM (4-12)
[2018-08-13 05:31] LABS: INR 2.2
[2018-08-13 05:32] LABS: Albumin 2.9 G/DL (3.4-5.0); Bilirubin,Total 0.4 MG/DL (0.2-1.0); Calcium 8.1 MG/DL (8.5-10.1); Osmolality,Calculated 279.5 MOS/KG (273-304); Potassium 3.3 MMOL/L (3.5-5.1); Risk Ratio 3.58; Thyroid Stimulating Hormone 11.4 uIU/ml (0.358-3.74); Total Protein 7.1 G/DL (6.4-8.3); VLDL CHOLESTEROL 29.6 MG/DL
[2018-08-13 05:33] LABS: PT Patient Result 23.6 SECS
[2018-08-13] MEDS ORDERED: POTASSIUM CHLORIDE 20 MEQ TABLET PO ONE ×2 (07:12→12:00)
[2018-08-13] MEDS ORDERED: MAGNESIUM SULF RIDER 2 GM in PREMIX 1 EACH IV ONE (07:13)
[2018-08-13] MEDS: INSULIN LISPRO 100 UNIT/ML SUBCUT SCH ×4 (08:00→22:11)
[2018-08-13 08:23] LABS: Free T4 (Free Thyroxine) 1.08 NG/DL (0.76-1.46)
[2018-08-13] MEDS ORDERED: ETOMIDATE 20 MG/10 ML VIAL IV ONE (08:26)
[2018-08-13] MEDS ORDERED: PROPOFOL 200 MG/20 ML VIAL IV ONE (08:26)
[2018-08-13] MEDS ORDERED: LIDOCAINE 100 MG/5 ML SYRINGE ONE (08:26)
[2018-08-13] MEDS: PANTOPRAZOLE 40 MG VIAL IV SCH ×2 (09:52→22:02)
[2018-08-13] MEDS: FUROSEMIDE 80 MG TABLET PO SCH (09:53)
[2018-08-13] MEDS: amLODIPine 10 MG TABLET PO SCH (09:53)
[2018-08-13] MEDS: sitaGLIPtin 25 MG TABLET PO SCH (09:53)
[2018-08-13] MEDS: cefTRIAXone 1,000 MG in SYRINGE 1 EACH IV SCH (09:53)
[2018-08-13] MEDS: CARVEDILOL 25 MG TABLET PO SCH ×2 (09:53→21:56)
[2018-08-13] MEDS: chlordiazePOXIDE 10 MG CAPSULE PO SCH ×3 (09:53→21:56)
[2018-08-13] MEDS: SIMVASTATIN 40 MG TABLET PO SCH (09:53)
[2018-08-13] MEDS ORDERED: HEPARIN DRIP 25,000 UNITS/500 ML PREMIX IV SCH ×2 (10:30→14:30)
[2018-08-13 18:24] LABS: Hematocrit 28.5 VOL% (35.7-47.0); Hemoglobin 8.9 GM/DL (12.0-16.0)
[2018-08-13] MEDS: AMITRIPTYLINE 25 MG TABLET PO SCH (21:56)
[2018-08-14 06:36] LABS: Basophils % 0.3 % (0.0-0.8); Eosinophils # 0.1 10*3/uL (0.0-0.87); Eosinophils % 1.8 % (0.00-10.9); Hematocrit 30.2 VOL% (35.7-47.0); Hemoglobin 9.2 GM/DL (12.0-16.0); Immature Granulocytes % 0.3 %; Immature Granulocytes Absolute 0.02 #; Lymphocytes # 0.8 10*3/uL (1.4-4.0); Lymphocytes % 12.9 % (21.3-54.2); Mean Corpuscular HGB Conc 30.5 GM/DL (32-36); Mean Corpuscular Hemoglobin 27 PG (27-34); Mean Corpuscular Volume 89.9 FL (87-102); Monocytes # 0.4 10*3/uL (0.11-0.8); Monocytes % 6.4 % (1.7-12.7); NRBC # 0.02 10*3/uL; Neutrophils # 4.8 10*3/uL (1.4-7.4); Neutrophils % 78.3 % (38.7-73.9); Platelet Count 210 T/CUMM (130-400); Red Blood Count 3.36 MC/CUMM (3.8-5.5); Red Cell Distribution Width 18.6 % (9.3-17.3); White Blood Count 6.1 T/CUMM (4-12)
[2018-08-14 06:41] LABS: INR 1.4; PT Patient Result 14.7 SECS
[2018-08-14 06:53] LABS: Calcium 8.1 MG/DL (8.5-10.1); Osmolality,Calculated 286.4 MOS/KG (273-304); Potassium 3.8 MMOL/L (3.5-5.1)
[2018-08-14] MEDS ORDERED: HEPARIN 5,000 UNIT/1 ML VIAL SUBCUT ONE (08:48)
[2018-08-14] MEDS ORDERED: HEPARIN 5,000 UNIT/1 ML VIAL IV ONE (09:06)
[2018-08-14] MEDS: INSULIN LISPRO 100 UNIT/ML SUBCUT SCH ×4 (09:09→22:43)
[2018-08-14] MEDS: CARVEDILOL 25 MG TABLET PO SCH ×2 (09:09→22:43)
[2018-08-14] MEDS: chlordiazePOXIDE 10 MG CAPSULE PO SCH ×3 (09:09→22:43)
[2018-08-14] MEDS: amLODIPine 10 MG TABLET PO SCH (09:09)
[2018-08-14] MEDS: sitaGLIPtin 25 MG TABLET PO SCH (10:09)
[2018-08-14] MEDS: FUROSEMIDE 80 MG TABLET PO SCH (10:09)
[2018-08-14] MEDS: SIMVASTATIN 40 MG TABLET PO SCH (10:09)
[2018-08-14] MEDS: PANTOPRAZOLE 40 MG VIAL IV SCH ×2 (10:09→22:47)
[2018-08-14] MEDS: HEPARIN DRIP 25,000 UNITS/500 ML PREMIX IV SCH (10:14)
[2018-08-14] MEDS: cefTRIAXone 1,000 MG in SYRINGE 1 EACH IV SCH (12:41)
[2018-08-14] MEDS: AMITRIPTYLINE 25 MG TABLET PO SCH (22:43)
[2018-08-15 01:08] LABS: INR 1.2; PT Patient Result 12.8 SECS
[2018-08-15] MEDS: HEPARIN DRIP 25,000 UNITS/500 ML PREMIX IV SCH ×2 (07:45→09:35)
[2018-08-15 09:11] LABS: Apearance,Urine CLEAR (Clear); Bacteria,Urine Occasional /HPF (Few); Bilirubin,Urine Negative (Negative); Blood, Urine Small mg/dL (Negative); Glucose,Urine (UA) Negative (Negative); Ketones,Urine Negative (Negative); Mucus,Urine Occasional /LPF (Occasional); Nitrite,Urine Negative (Negative); Protein,Urine Negative; RBC,Urine 1 /HPF (0-4); Squamous Epithelial Cell,Urine Occasional /HPF (0-10); Urine Color Yellow (Yellow); Urine Urobilinogen < 2.0 EU/DL (0.2-1.0); WBC,Urine 5 /HPF (0-6)
[2018-08-15] MEDS: FUROSEMIDE 80 MG TABLET PO SCH (09:26)
[2018-08-15] MEDS: CARVEDILOL 25 MG TABLET PO SCH ×2 (09:26→21:54)
[2018-08-15] MEDS: amLODIPine 10 MG TABLET PO SCH (09:27)
[2018-08-15] MEDS: chlordiazePOXIDE 10 MG CAPSULE PO SCH ×3 (09:27→21:55)
[2018-08-15] MEDS: sitaGLIPtin 25 MG TABLET PO SCH (09:27)
[2018-08-15] MEDS: BISACODYL 5 MG TABLET PO SCH ×2 (09:28→18:23)
[2018-08-15] MEDS: SIMVASTATIN 40 MG TABLET PO SCH (09:28)
[2018-08-15] MEDS: INSULIN LISPRO 100 UNIT/ML SUBCUT SCH ×4 (09:29→21:55)
[2018-08-15] MEDS: PANTOPRAZOLE 40 MG VIAL IV SCH ×2 (09:32→21:56)
[2018-08-15] MEDS ORDERED: POLYETHYLENE GLYCOL 3350/ELECTROLYTES 4,000 ML BOTTLE PO ONE (18:00)
[2018-08-15] MEDS ORDERED: MAGNESIUM CITRATE 300 ML BOTTLE PO ONE (21:00)
[2018-08-15] MEDS: AMITRIPTYLINE 25 MG TABLET PO SCH (21:55)
[2018-08-16] MEDS: BISACODYL 5 MG TABLET PO SCH (00:28)
[2018-08-16 04:58] LABS: INR 1.1; PT Patient Result 11.6 SECS
[2018-08-16 05:06] LABS: Calcium 8.7 MG/DL (8.5-10.1); Osmolality,Calculated 278.7 MOS/KG (273-304); Potassium 3.5 MMOL/L (3.5-5.1)
[2018-08-16 05:09] LABS: Basophils % 0.4 % (0.0-0.8); Eosinophils # 0.1 10*3/uL (0.0-0.87); Eosinophils % 2.3 % (0.00-10.9); Hematocrit 31.3 VOL% (35.7-47.0); Hemoglobin 9.6 GM/DL (12.0-16.0); Immature Granulocytes % 0.5 %; Immature Granulocytes Absolute 0.03 #; Lymphocytes # 0.8 10*3/uL (1.4-4.0); Lymphocytes % 13.5 % (21.3-54.2); Mean Corpuscular HGB Conc 30.7 GM/DL (32-36); Mean Corpuscular Hemoglobin 28 PG (27-34); Mean Corpuscular Volume 89.9 FL (87-102); Monocytes # 0.6 10*3/uL (0.11-0.8); Monocytes % 10.1 % (1.7-12.7); NRBC # 0.02 10*3/uL; Neutrophils # 4.1 10*3/uL (1.4-7.4); Neutrophils % 73.2 % (38.7-73.9); Platelet Count 199 T/CUMM (130-400); Red Blood Count 3.48 MC/CUMM (3.8-5.5); Red Cell Distribution Width 17.9 % (9.3-17.3); White Blood Count 5.6 T/CUMM (4-12)
[2018-08-16] MEDS: INSULIN LISPRO 100 UNIT/ML SUBCUT SCH ×4 (07:47→21:39)
[2018-08-16] MEDS: CARVEDILOL 25 MG TABLET PO SCH ×2 (09:15→21:39)
[2018-08-16] MEDS: FUROSEMIDE 80 MG TABLET PO SCH (09:15)
[2018-08-16] MEDS: sitaGLIPtin 25 MG TABLET PO SCH (09:15)
[2018-08-16] MEDS: amLODIPine 10 MG TABLET PO SCH (09:15)
[2018-08-16] MEDS: chlordiazePOXIDE 10 MG CAPSULE PO SCH ×3 (09:15→21:39)
[2018-08-16] MEDS: SIMVASTATIN 40 MG TABLET PO SCH (09:18)
[2018-08-16] MEDS: PANTOPRAZOLE 40 MG VIAL IV SCH ×2 (09:18→21:40)
[2018-08-16] MEDS: HEPARIN DRIP 25,000 UNITS/500 ML PREMIX IV SCH ×2 (10:09→15:21)
[2018-08-16] MEDS: WARFARIN 5 MG TABLET PO SCH (17:45)
[2018-08-16] MEDS: AMITRIPTYLINE 25 MG TABLET PO SCH (21:39)
[2018-08-17 05:25] LABS: PT Patient Result 11.2 SECS
[2018-08-17 08:49] LABS: Basophils % 0.1 % (0.0-0.8); Eosinophils # 0.1 10*3/uL (0.0-0.87); Eosinophils % 1.5 % (0.00-10.9); Hematocrit 32.7 VOL% (35.7-47.0); Hemoglobin 9.8 GM/DL (12.0-16.0); Immature Granulocytes % 0.4 %; Immature Granulocytes Absolute 0.03 #; Lymphocytes # 0.7 10*3/uL (1.4-4.0); Lymphocytes % 9.7 % (21.3-54.2); Mean Corpuscular Hemoglobin 28 PG (27-34); Mean Corpuscular Volume 92.4 FL (87-102); Mean Platelet Volume 11.4 FL (9.6-12.0); Monocytes # 0.5 10*3/uL (0.11-0.8); Monocytes % 6.9 % (1.7-12.7); NRBC # 0.02 10*3/uL; Neutrophils # 5.4 10*3/uL (1.4-7.4); Neutrophils % 81.4 % (38.7-73.9); Platelet Count 206 T/CUMM (130-400); Red Blood Count 3.54 MC/CUMM (3.8-5.5); Red Cell Distribution Width 17.8 % (9.3-17.3); White Blood Count 6.7 T/CUMM (4-12)
[2018-08-17] MEDS: INSULIN LISPRO 100 UNIT/ML SUBCUT SCH ×4 (09:26→21:26)
[2018-08-17] MEDS: HEPARIN DRIP 25,000 UNITS/500 ML PREMIX IV SCH (09:29)
[2018-08-17] MEDS: chlordiazePOXIDE 10 MG CAPSULE PO SCH ×3 (09:30→21:26)
[2018-08-17] MEDS: sitaGLIPtin 25 MG TABLET PO SCH (09:30)
[2018-08-17] MEDS: CARVEDILOL 25 MG TABLET PO SCH ×2 (09:30→21:25)
[2018-08-17] MEDS: FUROSEMIDE 80 MG TABLET PO SCH (09:30)
[2018-08-17] MEDS: SIMVASTATIN 40 MG TABLET PO SCH (09:30)
[2018-08-17] MEDS: amLODIPine 10 MG TABLET PO SCH (09:30)
[2018-08-17] MEDS: PANTOPRAZOLE 40 MG VIAL IV SCH ×2 (09:30→21:29)
[2018-08-17] MEDS: hydrALAZINE 25 MG TABLET PO SCH ×2 (10:45→21:25)
[2018-08-17] MEDS: WARFARIN 5 MG TABLET PO SCH (18:37)
[2018-08-17] MEDS: AMITRIPTYLINE 25 MG TABLET PO SCH (21:26)
[2018-08-18 05:03] LABS: Basophils % 0.3 % (0.0-0.8); Eosinophils # 0.1 10*3/uL (0.0-0.87); Hematocrit 28.6 VOL% (35.7-47.0); Hemoglobin 8.6 GM/DL (12.0-16.0); Immature Granulocytes % 0.5 %; Immature Granulocytes Absolute 0.03 #; Lymphocytes # 0.8 10*3/uL (1.4-4.0); Mean Corpuscular HGB Conc 30.1 GM/DL (32-36); Mean Corpuscular Hemoglobin 28 PG (27-34); Mean Platelet Volume 11.9 FL (9.6-12.0); Monocytes # 0.5 10*3/uL (0.11-0.8); Neutrophils % 77.2 % (38.7-73.9); Platelet Count 181 T/CUMM (130-400); Red Blood Count 3.11 MC/CUMM (3.8-5.5); Red Cell Distribution Width 17.9 % (9.3-17.3); White Blood Count 6.4 T/CUMM (4-12)
[2018-08-18 05:09] LABS: PT Patient Result 11.1 SECS
[2018-08-18 05:55] LABS: Calcium 8.3 MG/DL (8.5-10.1); Osmolality,Calculated 282.5 MOS/KG (273-304); Potassium 3.8 MMOL/L (3.5-5.1)
[2018-08-18] MEDS: INSULIN LISPRO 100 UNIT/ML SUBCUT SCH ×4 (08:46→22:15)
[2018-08-18] MEDS: amLODIPine 10 MG TABLET PO SCH (08:50)
[2018-08-18] MEDS: CARVEDILOL 25 MG TABLET PO SCH ×2 (08:50→22:09)
[2018-08-18] MEDS: hydrALAZINE 25 MG TABLET PO SCH ×2 (08:50→22:10)
[2018-08-18] MEDS: PANTOPRAZOLE 40 MG VIAL IV SCH ×2 (08:52→22:10)
[2018-08-18] MEDS: chlordiazePOXIDE 10 MG CAPSULE PO SCH ×3 (09:00→22:10)
[2018-08-18] MEDS: sitaGLIPtin 25 MG TABLET PO SCH (09:00)
[2018-08-18] MEDS ORDERED: CHLORHEXIDINE 0.12% ORAL RINSE 60 ML BOTTLE SWISH/SPIT ONE (12:09)
[2018-08-18] MEDS ORDERED: LIDOCAINE 1%/EPI INJ 20 ML VIAL ONE (12:10)
[2018-08-18] MEDS: LACTATED RINGERS 1,000 ML IV SCH (12:20)
[2018-08-18] MEDS ORDERED: CLINDAMYCIN 600 MG/4 ML VIAL ONE (12:52)
[2018-08-18] MEDS ORDERED: PROPOFOL 200 MG/20 ML VIAL IV ONE (13:53)
[2018-08-18] MEDS ORDERED: ePHEDrine 50 MG/ML AMP ONE (13:54)
[2018-08-18] MEDS ORDERED: fentaNYL 100 MCG/2 ML VIAL ONE (13:54)
[2018-08-18] MEDS ORDERED: MIDAZOLAM 2 MG/2 ML VIAL ONE (13:54)
[2018-08-18] MEDS ORDERED: GLYCOPYRROLATE 0.4 MG/2 ML VIAL ONE (13:55)
[2018-08-18] MEDS ORDERED: SEVOFLURANE 1 UNIT/15 MINUTE INH ONE (13:55)
[2018-08-18] MEDS ORDERED: ROCURONIUM 100 MG/10 ML VIAL IV ONE (13:55)
[2018-08-18] MEDS ORDERED: NEOSTIGMINE 10 MG/10 ML VIAL ONE (13:55)
[2018-08-18] MEDS ORDERED: ONDANSETRON 4 MG/2 ML VIAL IV PRN (14:01)
[2018-08-18] MEDS ORDERED: HYDROmorphone 2 MG/1 ML VIAL IV PRN (14:01)
[2018-08-18] MEDS: FUROSEMIDE 80 MG TABLET PO SCH (18:18)
[2018-08-18] MEDS: SIMVASTATIN 40 MG TABLET PO SCH (18:19)
[2018-08-18] MEDS: WARFARIN 5 MG TABLET PO SCH (18:19)
[2018-08-18] MEDS: HEPARIN DRIP 25,000 UNITS/500 ML PREMIX IV SCH (20:08)
[2018-08-18] MEDS: AMITRIPTYLINE 25 MG TABLET PO SCH (22:10)
[2018-08-19 04:25] LABS: Basophils % 0.1 % (0.0-0.8); Eosinophils # 0.1 10*3/uL (0.0-0.87); Eosinophils % 1.7 % (0.00-10.9); Hematocrit 29.1 VOL% (35.7-47.0); Hemoglobin 8.7 GM/DL (12.0-16.0); Immature Granulocytes % 0.4 %; Immature Granulocytes Absolute 0.03 #; Lymphocytes # 0.8 10*3/uL (1.4-4.0); Mean Corpuscular HGB Conc 29.9 GM/DL (32-36); Mean Corpuscular Hemoglobin 28 PG (27-34); Mean Corpuscular Volume 92.7 FL (87-102); Monocytes # 0.6 10*3/uL (0.11-0.8); Monocytes % 8.3 % (1.7-12.7); Neutrophils # 5.7 10*3/uL (1.4-7.4); Neutrophils % 78.5 % (38.7-73.9); Platelet Count 187 T/CUMM (130-400); Red Blood Count 3.14 MC/CUMM (3.8-5.5); Red Cell Distribution Width 17.8 % (9.3-17.3); White Blood Count 7.2 T/CUMM (4-12)
[2018-08-19 04:36] LABS: INR 1.1; PT Patient Result 11.7 SECS
[2018-08-19 04:47] LABS: Calcium 8.4 MG/DL (8.5-10.1); Osmolality,Calculated 274.8 MOS/KG (273-304); Potassium 4.1 MMOL/L (3.5-5.1)
[2018-08-19] MEDS: INSULIN LISPRO 100 UNIT/ML SUBCUT SCH ×4 (07:07→21:00)
[2018-08-19] MEDS: sitaGLIPtin 25 MG TABLET PO SCH (09:30)
[2018-08-19] MEDS: FUROSEMIDE 80 MG TABLET PO SCH (09:30)
[2018-08-19] MEDS: CARVEDILOL 25 MG TABLET PO SCH ×2 (09:30→20:59)
[2018-08-19] MEDS: chlordiazePOXIDE 10 MG CAPSULE PO SCH ×3 (09:30→20:59)
[2018-08-19] MEDS: hydrALAZINE 25 MG TABLET PO SCH ×2 (09:30→20:59)
[2018-08-19] MEDS: amLODIPine 10 MG TABLET PO SCH (09:31)
[2018-08-19] MEDS: PANTOPRAZOLE 40 MG VIAL IV SCH ×2 (09:31→21:00)
[2018-08-19] MEDS: SIMVASTATIN 40 MG TABLET PO SCH (09:31)
[2018-08-19] MEDS: HEPARIN DRIP 25,000 UNITS/500 ML PREMIX IV SCH ×2 (09:41→16:21)
[2018-08-19] MEDS ORDERED: AMPICILLIN INJ 2,000 MG in SODIUM CHLORIDE 0.9% 100 ML IV ONE (11:30)
[2018-08-19] MEDS: LACTATED RINGERS 1,000 ML IV SCH (12:30)
[2018-08-19] MEDS ORDERED: WARFARIN 5 MG TABLET PO ONE (18:00)
[2018-08-19] MEDS: WARFARIN 5 MG TABLET PO SCH (18:20)
[2018-08-19] MEDS: AMITRIPTYLINE 25 MG TABLET PO SCH (21:00)
[2018-08-20 04:27] LABS: Basophils % 0.4 % (0.0-0.8); Eosinophils # 0.1 10*3/uL (0.0-0.87); Eosinophils % 2.2 % (0.00-10.9); Hematocrit 28.6 VOL% (35.7-47.0); Hemoglobin 8.4 GM/DL (12.0-16.0); Immature Granulocytes % 0.4 %; Immature Granulocytes Absolute 0.02 #; Lymphocytes % 18.4 % (21.3-54.2); Mean Corpuscular HGB Conc 29.4 GM/DL (32-36); Mean Corpuscular Hemoglobin 27 PG (27-34); Mean Corpuscular Volume 92.3 FL (87-102); Mean Platelet Volume 11.7 FL (9.6-12.0); Monocytes # 0.5 10*3/uL (0.11-0.8); Monocytes % 9.5 % (1.7-12.7); Neutrophils # 3.7 10*3/uL (1.4-7.4); Neutrophils % 69.1 % (38.7-73.9); Platelet Count 174 T/CUMM (130-400); Red Cell Distribution Width 17.9 % (9.3-17.3); White Blood Count 5.4 T/CUMM (4-12)
[2018-08-20 04:35] LABS: INR 1.2; PT Patient Result 13.1 SECS
[2018-08-20 05:00] LABS: Calcium 8.5 MG/DL (8.5-10.1); Osmolality,Calculated 274.1 MOS/KG (273-304); Potassium 4.4 MMOL/L (3.5-5.1)
[2018-08-20] MEDS: INSULIN LISPRO 100 UNIT/ML SUBCUT SCH ×4 (07:49→21:19)
[2018-08-20] MEDS: sitaGLIPtin 25 MG TABLET PO SCH (08:37)
[2018-08-20] MEDS: CARVEDILOL 25 MG TABLET PO SCH ×2 (08:37→21:19)
[2018-08-20] MEDS: chlordiazePOXIDE 10 MG CAPSULE PO SCH ×3 (08:37→21:17)
[2018-08-20] MEDS: FUROSEMIDE 80 MG TABLET PO SCH (08:37)
[2018-08-20] MEDS: amLODIPine 10 MG TABLET PO SCH (08:38)
[2018-08-20] MEDS: hydrALAZINE 25 MG TABLET PO SCH (08:38)
[2018-08-20] MEDS: PANTOPRAZOLE 40 MG VIAL IV SCH ×2 (08:38→21:19)
[2018-08-20] MEDS: SIMVASTATIN 40 MG TABLET PO SCH (08:38)
[2018-08-20] MEDS: HEPARIN DRIP 25,000 UNITS/500 ML PREMIX IV SCH ×2 (09:53→13:07)
[2018-08-20] MEDS: LACTATED RINGERS 1,000 ML IV SCH (13:34)
[2018-08-20] MEDS ORDERED: BISACODYL 5 MG TABLET PO ONE (14:34)
[2018-08-20] MEDS: WARFARIN 5 MG TABLET PO SCH (17:12)
[2018-08-20] MEDS ORDERED: WARFARIN 5 MG TABLET PO ONE (18:00)
[2018-08-20] MEDS: DOCUSATE SODIUM 100 MG CAPSULE PO SCH (21:18)
[2018-08-20] MEDS: AMITRIPTYLINE 25 MG TABLET PO SCH (21:19)
[2018-08-21 07:34] LABS: INR 1.5; PT Patient Result 15.8 SECS
[2018-08-21 07:54] LABS: Calcium 8.6 MG/DL (8.5-10.1); Potassium 4.1 MMOL/L (3.5-5.1)
[2018-08-21] MEDS: HEPARIN DRIP 25,000 UNITS/500 ML PREMIX IV SCH (08:01)
[2018-08-21] MEDS: INSULIN LISPRO 100 UNIT/ML SUBCUT SCH ×4 (08:07→21:00)
[2018-08-21] MEDS: FUROSEMIDE 80 MG TABLET PO SCH (08:27)
[2018-08-21] MEDS: sitaGLIPtin 25 MG TABLET PO SCH (08:27)
[2018-08-21] MEDS: PANTOPRAZOLE 40 MG VIAL IV SCH ×2 (08:27→22:11)
[2018-08-21] MEDS: DOCUSATE SODIUM 100 MG CAPSULE PO SCH ×2 (08:27→22:14)
[2018-08-21] MEDS: chlordiazePOXIDE 10 MG CAPSULE PO SCH ×3 (08:27→22:12)
[2018-08-21] MEDS: amLODIPine 10 MG TABLET PO SCH (08:28)
[2018-08-21] MEDS: CARVEDILOL 25 MG TABLET PO SCH ×2 (08:28→22:12)
[2018-08-21] MEDS: SIMVASTATIN 40 MG TABLET PO SCH (08:28)
[2018-08-21] MEDS ORDERED: WARFARIN 2.5 MG TABLET PO ONE (10:48)
[2018-08-21] MEDS: LACTATED RINGERS 1,000 ML IV SCH (14:36)
[2018-08-21] MEDS: WARFARIN 5 MG TABLET PO SCH (17:54)
[2018-08-21] MEDS: AMITRIPTYLINE 25 MG TABLET PO SCH (22:13)
[2018-08-22 08:45] LABS: INR 1.8; PT Patient Result 19.8 SECS
[2018-08-22] MEDS ORDERED: WARFARIN 5 MG TABLET PO ONE (09:16)
[2018-08-22] MEDS: FUROSEMIDE 80 MG TABLET PO SCH (10:01)
[2018-08-22] MEDS: chlordiazePOXIDE 10 MG CAPSULE PO SCH ×3 (10:01→20:44)
[2018-08-22] MEDS: DOCUSATE SODIUM 100 MG CAPSULE PO SCH ×2 (10:01→20:44)
[2018-08-22] MEDS: amLODIPine 10 MG TABLET PO SCH (10:02)
[2018-08-22] MEDS: sitaGLIPtin 25 MG TABLET PO SCH (10:02)
[2018-08-22] MEDS: CARVEDILOL 25 MG TABLET PO SCH ×2 (10:02→20:44)
[2018-08-22] MEDS: SIMVASTATIN 40 MG TABLET PO SCH (10:02)
[2018-08-22] MEDS: PANTOPRAZOLE 40 MG VIAL IV SCH ×2 (10:03→20:46)
[2018-08-22] MEDS: HEPARIN DRIP 25,000 UNITS/500 ML PREMIX IV SCH ×2 (10:47→11:32)
[2018-08-22] MEDS: INSULIN LISPRO 100 UNIT/ML SUBCUT SCH ×4 (10:52→20:43)
[2018-08-22] MEDS: LACTATED RINGERS 1,000 ML IV SCH (16:50)
[2018-08-22] MEDS: WARFARIN 5 MG TABLET PO SCH (17:51)
[2018-08-22] MEDS: AMITRIPTYLINE 25 MG TABLET PO SCH (20:44)
[2018-08-23] MEDS: HEPARIN DRIP 25,000 UNITS/500 ML PREMIX IV SCH (03:55)
[2018-08-23 04:43] LABS: PT Patient Result 21.2 SECS
[2018-08-23] MEDS: INSULIN LISPRO 100 UNIT/ML SUBCUT SCH ×2 (07:55→11:45)
[2018-08-23] MEDS ORDERED: WARFARIN 5 MG TABLET PO ONE (09:00)
[2018-08-23] MEDS: CARVEDILOL 25 MG TABLET PO SCH (10:06)
[2018-08-23] MEDS: amLODIPine 10 MG TABLET PO SCH (10:06)
[2018-08-23] MEDS: sitaGLIPtin 25 MG TABLET PO SCH (10:06)
[2018-08-23] MEDS: SIMVASTATIN 40 MG TABLET PO SCH (10:06)
[2018-08-23] MEDS: chlordiazePOXIDE 10 MG CAPSULE PO SCH (10:07)
[2018-08-23] MEDS: PANTOPRAZOLE 40 MG VIAL IV SCH (10:07)
[2018-08-23] MEDS: DOCUSATE SODIUM 100 MG CAPSULE PO SCH (10:07)
[2018-08-23] MEDS: FUROSEMIDE 80 MG TABLET PO SCH (10:07)
[2018-08-23 11:26] VITALS: BP 157/71
[2018-08-23] MEDS: LACTATED RINGERS 1,000 ML IV SCH (11:31)
== END 2018-08-23 14:15 | disposition home or self-care (01) | DRG 378 ==
LOC: EDBD → EDUNIT# → N.ED 12:22 → SUATTDRO 14:11 → N.EDINP 14:11 → N.3E 15:27
PROVIDERS: ADMIT Internal Medicine; ATTEND Emergency Medicine

== ENCOUNTER 2018-11-06 15:32 | Inpatient (IN) ==
[2018-11-06 16:23] LABS: Basophils % 0.3 % (0.0-0.8); Eosinophils # 0.1 10*3/uL (0.0-0.87); Eosinophils % 1.2 % (0.00-10.9); Hematocrit 30.9 VOL% (35.7-47.0); Hemoglobin 9.3 GM/DL (12.0-16.0); Immature Granulocytes % 0.5 %; Immature Granulocytes Absolute 0.03 #; Lymphocytes # 0.8 10*3/uL (1.4-4.0); Lymphocytes % 11.4 % (21.3-54.2); Mean Corpuscular HGB Conc 30.1 GM/DL (32-36); Mean Corpuscular Volume 90.1 FL (87-102); Mean Platelet Volume 11.6 FL (9.6-12.0); Monocytes % 6.5 % (1.7-12.7); NRBC # 0.03 10*3/uL; Neutrophils % 80.1 % (38.7-73.9); Platelet Count 168 T/CUMM (130-400); Red Blood Count 3.43 MC/CUMM (3.8-5.5); Red Cell Distribution Width 18.6 % (9.3-17.3); White Blood Count 6.6 T/CUMM (4-12)
[2018-11-06 16:32] LABS: INR 1.9; PT Patient Result 20.2 SECS
[2018-11-06 16:33] LABS: Partial Thromboplastin Time 42.8 SECS (0-40)
[2018-11-06 16:35] LABS: Apearance,Urine CLEAR (Clear); Bilirubin,Urine Negative (Negative); Blood, Urine Small mg/dL (Negative); Glucose,Urine (UA) 50 mg/dL (Negative); Hyaline Casts,Urine 1 /LPF (0-3); Ketones,Urine Negative (Negative); Nitrite,Urine Positive (Negative); Protein,Urine Negative; RBC,Urine 5 /HPF (0-4); Squamous Epithelial Cell,Urine Occasional /HPF (0-10); Urine Color Yellow (Yellow); Urine Specific Gravity 1.008 (1.001-1.035); Urine Urobilinogen < 2.0 EU/DL (0.2-1.0); WBC,Urine 30 /HPF (0-6)
[2018-11-06 16:46] LABS: Alanine Aminotransferase 17 U/L (13-56); Albumin 3.7 G/DL (3.4-5.0); Alkaline Phosphatase 157 U/L (45-117); Aspartate Amino Transferase 14 U/L (0-37); Bilirubin,Total < 0.39 MG/DL (0.2-1.0); Blood Urea Nitrogen 32 MG/DL (7-18); Calcium 8.3 MG/DL (8.5-10.1); Glucose 312 MG/DL (74-106); Osmolality,Calculated 291.8 MOS/KG (273-304); Total Protein 8.1 G/DL (6.4-8.3); Troponin I < 0.015 NG/ML (0.00-0.045)
[2018-11-06] MEDS ORDERED: ONDANSETRON 4 MG/2 ML VIAL IV PRN (18:25)
[2018-11-06] MEDS ORDERED: GLUCAGON 1 MG VIAL IM PRN (18:25)
[2018-11-06] MEDS ORDERED: DEXTROSE 50% 25 GM/50 ML SYRINGE IV PRN (18:25)
[2018-11-06] MEDS ORDERED: NITROGLYCERIN SL 0.4 MG TABLET SL PRN (18:40)
[2018-11-06 22:36] LABS: Hematocrit 27.2 VOL% (35.7-47.0); Hemoglobin 8.4 GM/DL (12.0-16.0)
[2018-11-06] MEDS: MEROPENEM 1,000 MG in SODIUM CHLORIDE 0.9% 100 ML IV SCH (22:48)
[2018-11-06] MEDS: chlordiazePOXIDE 10 MG CAPSULE PO SCH (22:50)
[2018-11-06] MEDS: ISOSORBIDE MONONITRATE 60 MG TABLET PO SCH (22:50)
[2018-11-06] MEDS: FERROUS SULFATE 325 MG TABLET PO SCH (22:50)
[2018-11-06] MEDS: CARVEDILOL 25 MG TABLET PO SCH (22:51)
[2018-11-06] MEDS: AMITRIPTYLINE 25 MG TABLET PO SCH (22:51)
[2018-11-06] MEDS: INSULIN REGULAR 100 UNIT/ML SUBCUT SCH (22:52)
[2018-11-07 05:51] LABS: Basophils % 0.4 % (0.0-0.8); Eosinophils # 0.1 10*3/uL (0.0-0.87); Eosinophils % 1.9 % (0.00-10.9); Hematocrit 27.8 VOL% (35.7-47.0); Hemoglobin 8.3 GM/DL (12.0-16.0); Immature Granulocytes % 0.4 %; Immature Granulocytes Absolute 0.02 #; Lymphocytes # 0.9 10*3/uL (1.4-4.0); Lymphocytes % 16.4 % (21.3-54.2); Mean Corpuscular HGB Conc 29.9 GM/DL (32-36); Mean Corpuscular Volume 90.6 FL (87-102); Mean Platelet Volume 13.1 FL (9.6-12.0); Neutrophils % 71.9 % (38.7-73.9); Platelet Count 164 T/CUMM (130-400); Red Blood Count 3.07 MC/CUMM (3.8-5.5); Red Cell Distribution Width 18.8 % (9.3-17.3); White Blood Count 5.2 T/CUMM (4-12)
[2018-11-07 06:54] LABS: Calcium 8.4 MG/DL (8.5-10.1); Risk Ratio 5.59; VLDL CHOLESTEROL 61.4 MG/DL
[2018-11-07] MEDS: INSULIN REGULAR 100 UNIT/ML SUBCUT SCH ×4 (09:51→21:32)
[2018-11-07] MEDS: MEROPENEM 1,000 MG in SODIUM CHLORIDE 0.9% 100 ML IV SCH ×2 (09:52→21:29)
[2018-11-07] MEDS: chlordiazePOXIDE 10 MG CAPSULE PO SCH ×3 (09:53→21:31)
[2018-11-07] MEDS: amLODIPine 10 MG TABLET PO SCH (09:53)
[2018-11-07] MEDS: SIMVASTATIN 40 MG TABLET PO SCH (09:53)
[2018-11-07] MEDS: CARVEDILOL 25 MG TABLET PO SCH ×2 (09:53→21:31)
[2018-11-07] MEDS: FERROUS SULFATE 325 MG TABLET PO SCH ×3 (09:53→21:31)
[2018-11-07] MEDS: ISOSORBIDE MONONITRATE 60 MG TABLET PO SCH ×2 (09:53→21:31)
[2018-11-07] MEDS: ASPIRIN EC 81 MG TABLET PO SCH ×2 (09:54→10:13)
[2018-11-07] MEDS: POTASSIUM CHLORIDE 20 MEQ TABLET PO PRN ×3 (10:08→18:09)
[2018-11-07] MEDS ORDERED: POLYETHYLENE GLYCOL POWDER 255 GM BOTTLE PO ONE (18:00)
[2018-11-07] MEDS ORDERED: BISACODYL 5 MG TABLET PO ONE (18:00)
[2018-11-07] MEDS: WARFARIN 5 MG TABLET PO SCH (18:09)
[2018-11-07] MEDS: AMITRIPTYLINE 25 MG TABLET PO SCH (21:32)
[2018-11-08 05:23] LABS: Basophils % 0.4 % (0.0-0.8); Eosinophils # 0.1 10*3/uL (0.0-0.87); Eosinophils % 1.7 % (0.00-10.9); Hematocrit 28.7 VOL% (35.7-47.0); Hemoglobin 8.4 GM/DL (12.0-16.0); Immature Granulocytes % 0.4 %; Immature Granulocytes Absolute 0.02 #; Lymphocytes % 18.6 % (21.3-54.2); Mean Corpuscular HGB Conc 29.3 GM/DL (32-36); Mean Corpuscular Volume 92.3 FL (87-102); Mean Platelet Volume 12.9 FL (9.6-12.0); Monocytes % 9.7 % (1.7-12.7); Neutrophils % 69.2 % (38.7-73.9); Platelet Count 177 T/CUMM (130-400); Red Blood Count 3.11 MC/CUMM (3.8-5.5); Red Cell Distribution Width 19.5 % (9.3-17.3); White Blood Count 5.3 T/CUMM (4-12)
[2018-11-08 05:49] LABS: Calcium 8.7 MG/DL (8.5-10.1); Osmolality,Calculated 280.5 MOS/KG (273-304)
[2018-11-08 06:02] LABS: INR 1.8; PT Patient Result 19.5 SECS
[2018-11-08] MEDS: INSULIN REGULAR 100 UNIT/ML SUBCUT SCH ×4 (08:01→22:20)
[2018-11-08] MEDS: MEROPENEM 1,000 MG in SODIUM CHLORIDE 0.9% 100 ML IV SCH (08:34)
[2018-11-08] MEDS ORDERED: WARFARIN 10 MG TABLET PO ONE (09:00)
[2018-11-08] MEDS ORDERED: hydrALAZINE 20 MG/1 ML VIAL IV PRN (09:44)
[2018-11-08] MEDS: ISOSORBIDE MONONITRATE 60 MG TABLET PO SCH ×2 (10:09→20:20)
[2018-11-08] MEDS: SIMVASTATIN 40 MG TABLET PO SCH (10:09)
[2018-11-08] MEDS: amLODIPine 10 MG TABLET PO SCH (10:09)
[2018-11-08] MEDS: chlordiazePOXIDE 10 MG CAPSULE PO SCH ×3 (10:09→20:21)
[2018-11-08] MEDS: POTASSIUM CHLORIDE 20 MEQ TABLET PO PRN ×2 (10:09→14:55)
[2018-11-08] MEDS: CARVEDILOL 25 MG TABLET PO SCH ×2 (10:10→20:20)
[2018-11-08] MEDS: ASPIRIN EC 81 MG TABLET PO SCH (10:11)
[2018-11-08] MEDS: ENOXAPARIN 80 MG/0.8 ML SYRINGE SUBCUT SCH ×2 (10:11→20:19)
[2018-11-08] MEDS: AMPICILLIN INJ 1,000 MG in SODIUM CHLORIDE 0.9% 100 ML IV SCH (17:31)
[2018-11-08] MEDS: AMITRIPTYLINE 25 MG TABLET PO SCH (20:20)
[2018-11-08] MEDS: PANTOPRAZOLE 40 MG TABLET PO SCH (20:20)
[2018-11-09] MEDS: AMPICILLIN INJ 1,000 MG in SODIUM CHLORIDE 0.9% 100 ML IV SCH ×2 (01:45→08:28)
[2018-11-09] MEDS ORDERED: ACETAMINOPHEN 325 MG TABLET PO PRN (02:30)
[2018-11-09 07:37] LABS: Basophils % 0.2 % (0.0-0.8); Immature Granulocytes % 0.4 %; Immature Granulocytes Absolute 0.02 #; Lymphocytes % 21.5 % (21.3-54.2)
[2018-11-09 07:38] LABS: INR 2.2
[2018-11-09 07:45] LABS: Eosinophils # 0.1 10*3/uL (0.0-0.87); Eosinophils % 2.1 % (0.00-10.9); Hematocrit 26.1 VOL% (35.7-47.0); Mean Corpuscular HGB Conc 30.3 GM/DL (32-36); Mean Corpuscular Volume 90.6 FL (87-102); Mean Platelet Volume 13.3 FL (9.6-12.0); Monocytes % 10.5 % (1.7-12.7); Neutrophils % 65.3 % (38.7-73.9); Platelet Count 171 T/CUMM (130-400); Red Blood Count 2.88 MC/CUMM (3.8-5.5); Red Cell Distribution Width 19.7 % (9.3-17.3); White Blood Count 4.8 T/CUMM (4-12)
[2018-11-09 07:46] LABS: PT Patient Result 23.6 SECS
[2018-11-09 07:47] LABS: Hemoglobin 7.9 GM/DL (12.0-16.0)
[2018-11-09 07:51] LABS: Calcium 8.4 MG/DL (8.5-10.1); Osmolality,Calculated 282.8 MOS/KG (273-304)
[2018-11-09] MEDS: ENOXAPARIN 80 MG/0.8 ML SYRINGE SUBCUT SCH (08:27)
[2018-11-09] MEDS: INSULIN REGULAR 100 UNIT/ML SUBCUT SCH ×4 (08:27→21:53)
[2018-11-09] MEDS: ASPIRIN EC 81 MG TABLET PO SCH (08:28)
[2018-11-09] MEDS: PANTOPRAZOLE 40 MG TABLET PO SCH ×2 (08:28→21:01)
[2018-11-09] MEDS: chlordiazePOXIDE 10 MG CAPSULE PO SCH ×3 (08:28→21:01)
[2018-11-09] MEDS: ISOSORBIDE MONONITRATE 60 MG TABLET PO SCH ×2 (08:28→21:01)
[2018-11-09] MEDS: SIMVASTATIN 40 MG TABLET PO SCH (08:28)
[2018-11-09] MEDS: CARVEDILOL 25 MG TABLET PO SCH ×2 (08:28→21:01)
[2018-11-09] MEDS: DOXYCYCLINE HYCLATE 100 MG CAPSULE PO SCH ×2 (09:26→21:01)
[2018-11-09] MEDS: amLODIPine 10 MG TABLET PO SCH (09:26)
[2018-11-09] MEDS: WARFARIN 5 MG TABLET PO SCH (17:51)
[2018-11-09] MEDS: AMITRIPTYLINE 25 MG TABLET PO SCH (21:01)
[2018-11-10 04:31] LABS: Basophils % 0.2 % (0.0-0.8); Eosinophils # 0.1 10*3/uL (0.0-0.87); Eosinophils % 2.1 % (0.00-10.9); Hematocrit 25.7 VOL% (35.7-47.0); Hemoglobin 7.8 GM/DL (12.0-16.0); Immature Granulocytes % 0.2 %; Immature Granulocytes Absolute 0.01 #; Lymphocytes # 0.8 10*3/uL (1.4-4.0); Lymphocytes % 16.2 % (21.3-54.2); Mean Corpuscular HGB Conc 30.4 GM/DL (32-36); Mean Corpuscular Volume 91.8 FL (87-102); Mean Platelet Volume 12.1 FL (9.6-12.0); Monocytes % 8.6 % (1.7-12.7); Neutrophils % 72.7 % (38.7-73.9); Platelet Count 160 T/CUMM (130-400); Red Cell Distribution Width 19.7 % (9.3-17.3); White Blood Count 4.9 T/CUMM (4-12)
[2018-11-10 04:46] LABS: INR 2.3
[2018-11-10 04:52] LABS: PT Patient Result 24.4 SECS
[2018-11-10 04:57] LABS: Osmolality,Calculated 284.4 MOS/KG (273-304)
[2018-11-10] MEDS ORDERED: SODIUM CHLORIDE 0.9% 1,000 ML IV PRN (07:13)
[2018-11-10] MEDS ORDERED: FUROSEMIDE 20 MG/2 ML VIAL IV PRN (07:13)
[2018-11-10] MEDS: INSULIN REGULAR 100 UNIT/ML SUBCUT SCH ×3 (09:18→15:43)
[2018-11-10] MEDS: chlordiazePOXIDE 10 MG CAPSULE PO SCH ×2 (09:19→15:42)
[2018-11-10] MEDS: SIMVASTATIN 40 MG TABLET PO SCH (09:19)
[2018-11-10] MEDS: PANTOPRAZOLE 40 MG TABLET PO SCH (09:19)
[2018-11-10] MEDS: DOXYCYCLINE HYCLATE 100 MG CAPSULE PO SCH (09:19)
[2018-11-10] MEDS: amLODIPine 10 MG TABLET PO SCH (09:19)
[2018-11-10] MEDS: ISOSORBIDE MONONITRATE 60 MG TABLET PO SCH (09:19)
[2018-11-10] MEDS: CARVEDILOL 25 MG TABLET PO SCH (09:19)
[2018-11-10] MEDS: FERROUS SULFATE 325 MG TABLET PO SCH ×2 (09:19→15:42)
[2018-11-10] MEDS: ASPIRIN EC 81 MG TABLET PO SCH (09:19)
[2018-11-10 16:20] VITALS: BP 183/74
[2018-11-10] MEDS: WARFARIN 5 MG TABLET PO SCH (18:24)
== END 2018-11-10 18:52 | disposition home or self-care (01) | DRG 378 ==
LOC: EDUNIT# → N.ED 15:32 → N.EDINP 18:25 → SUATTDRO 18:25 → N.2E 19:01
PROVIDERS: ADMIT Family Medicine; ATTEND Internal Medicine

== ENCOUNTER 2019-06-30 12:52 | Inpatient (IN) ==
[2019-06-30 13:45] LABS: Basophils % 0.2 % (0.0-0.8); Eosinophils # 0.1 10*3/uL (0.0-0.87); Eosinophils % 0.9 % (0.00-10.9); Immature Granulocytes % 0.2 %; Immature Granulocytes Absolute 0.01 #; Lymphocytes # 0.5 10*3/uL (1.4-4.0); Lymphocytes % 9.4 % (21.3-54.2); Mean Corpuscular HGB Conc 30.8 GM/DL (32-36); Mean Corpuscular Volume 92.9 FL (87-102); Mean Platelet Volume 11.8 FL (9.6-12.0); Monocytes % 5.2 % (1.7-12.7); Neutrophils % 84.1 % (38.7-73.9); Platelet Count 144 T/CUMM (130-400); Red Cell Distribution Width 18.4 % (9.3-17.3); White Blood Count 5.4 T/CUMM (4-12)
[2019-06-30 13:53] LABS: INR 1.5; PT Patient Result 15.8 SECS (9.6-12.2); Partial Thromboplastin Time 35.5 SECS (20.8-36.0)
[2019-06-30 14:06] LABS: Albumin 3.2 G/DL (3.4-5.0); Bilirubin,Total 0.4 MG/DL (0.2-1.0); Calcium 7.5 MG/DL (8.5-10.1); Osmolality,Calculated 297.3 MOS/KG (273-304); Total Protein 7.3 G/DL (6.4-8.3)
[2019-06-30] MEDS ORDERED: FUROSEMIDE 40 MG/4 ML VIAL IV STA (14:24)
[2019-06-30] MEDS ORDERED: LACTULOSE 20 GM/30 ML UDCUP PO PRN (14:58)
[2019-06-30] MEDS ORDERED: guaiFENesin/DM ER 600-30 MG TABLET PO PRN (14:58)
[2019-06-30] MEDS ORDERED: ONDANSETRON 4 MG/2 ML VIAL IV PRN (14:58)
[2019-06-30] MEDS ORDERED: GLUCAGON 1 MG VIAL IM PRN (14:58)
[2019-06-30] MEDS ORDERED: DEXTROSE 50% 25 GM/50 ML VIAL IV PRN (14:58)
[2019-06-30] MEDS ORDERED: ACETAMINOPHEN 325 MG TABLET PO PRN (14:58)
[2019-06-30] MEDS ORDERED: NITROGLYCERIN SL 0.4 MG TABLET SL PRN (15:02)
[2019-06-30] MEDS ORDERED: POTASSIUM CHLORIDE 20 MEQ TABLET PO ONE (15:05)
[2019-06-30] MEDS ORDERED: MAGNESIUM SULF RIDER 2 GM in PREMIX 1 EACH IV PRN (15:06)
[2019-06-30] MEDS ORDERED: MAGNESIUM SULF RIDER 4 GM in PREMIX 1 EACH IV PRN (15:06)
[2019-06-30 15:29] LABS: Risk Ratio 3.49; Thyroid Stimulating Hormone 10.9 uIU/ml (0.358-3.74); VLDL CHOLESTEROL 25.4 MG/DL
[2019-06-30 15:52] LABS: Apearance,Urine CLEAR (Clear); Bacteria,Urine Many /HPF (Few); Bilirubin,Urine Negative (Negative); Blood, Urine Small mg/dL (Negative); Glucose,Urine (UA) Negative (Negative); Ketones,Urine Negative (Negative); Nitrite,Urine Positive (Negative); Protein,Urine Negative; RBC,Urine 1 /HPF (0-4); Urine Color Straw (Yellow); Urine Specific Gravity 1.005 (1.001-1.035); Urine Urobilinogen < 2.0 EU/DL (0.2-1.0); WBC,Urine 10 /HPF (0-6)
[2019-06-30] MEDS: FUROSEMIDE 40 MG/4 ML VIAL IV SCH (17:13)
[2019-06-30] MEDS: INSULIN REGULAR 100 UNIT/ML SUBCUT SCH ×2 (17:37→20:25)
[2019-06-30] MEDS: WARFARIN 5 MG TABLET PO SCH (17:47)
[2019-06-30] MEDS: FERROUS SULFATE 325 MG TABLET PO SCH (20:26)
[2019-06-30] MEDS: chlordiazePOXIDE 10 MG CAPSULE PO SCH (20:26)
[2019-06-30] MEDS: carvediloL 25 MG TABLET PO SCH (20:26)
[2019-06-30] MEDS: ISOSORBIDE DINITRATE 20 MG TABLET PO SCH (20:26)
[2019-06-30] MEDS: AMITRIPTYLINE 25 MG TABLET PO SCH (20:26)
[2019-06-30] MEDS: POTASSIUM CHLORIDE 20 MEQ TABLET PO PRN ×3 (20:26→23:57)
[2019-06-30] MEDS: SIMVASTATIN 40 MG TABLET PO SCH (20:27)
[2019-07-01 05:30] LABS: Basophils % 0.2 % (0.0-0.8); Eosinophils # 0.1 10*3/uL (0.0-0.87); Eosinophils % 1.2 % (0.00-10.9); Hematocrit 24.5 VOL% (35.7-47.0); Hemoglobin 7.4 GM/DL (12.0-16.0); Immature Granulocytes % 0.2 %; Immature Granulocytes Absolute 0.01 #; Lymphocytes # 0.5 10*3/uL (1.4-4.0); Lymphocytes % 10.8 % (21.3-54.2); Mean Corpuscular HGB Conc 30.2 GM/DL (32-36); Mean Corpuscular Volume 93.5 FL (87-102); Mean Platelet Volume 12.5 FL (9.6-12.0); Monocytes % 7.5 % (1.7-12.7); Neutrophils % 80.1 % (38.7-73.9); Platelet Count 136 T/CUMM (130-400); Red Blood Count 2.62 MC/CUMM (3.8-5.5); Red Cell Distribution Width 18.6 % (9.3-17.3); White Blood Count 4.8 T/CUMM (4-12)
[2019-07-01 05:40] LABS: INR 1.5; PT Patient Result 16.1 SECS (9.6-12.2)
[2019-07-01 05:54] LABS: Calcium 7.6 MG/DL (8.5-10.1); Osmolality,Calculated 298.7 MOS/KG (273-304)
[2019-07-01 06:04] LABS: Free T4 (Free Thyroxine) 0.87 NG/DL (0.76-1.46)
[2019-07-01] MEDS: INSULIN REGULAR 100 UNIT/ML SUBCUT SCH ×4 (09:02→22:10)
[2019-07-01] MEDS: FUROSEMIDE 40 MG/4 ML VIAL IV SCH ×2 (09:04→17:26)
[2019-07-01] MEDS: NICOTINE 14 MG/24 HR PATCH TRANSDERM SCH (09:07)
[2019-07-01] MEDS: ASPIRIN EC 81 MG TABLET PO SCH (09:10)
[2019-07-01] MEDS: ISOSORBIDE DINITRATE 20 MG TABLET PO SCH ×2 (09:10→22:10)
[2019-07-01] MEDS: FERROUS SULFATE 325 MG TABLET PO SCH ×3 (09:10→22:10)
[2019-07-01] MEDS: PANTOPRAZOLE 40 MG TABLET PO SCH (09:11)
[2019-07-01] MEDS: POTASSIUM CHLORIDE 20 MEQ TABLET PO SCH (09:11)
[2019-07-01] MEDS: sitaGLIPtin 25 MG TABLET PO SCH (09:11)
[2019-07-01] MEDS: carvediloL 25 MG TABLET PO SCH ×2 (09:11→22:09)
[2019-07-01] MEDS: chlordiazePOXIDE 10 MG CAPSULE PO SCH ×3 (09:17→22:11)
[2019-07-01] MEDS: ALBUTEROL/IPRATROPIUM 3 ML NEB RESP TX PRN ×2 (09:45→21:08)
[2019-07-01] MEDS ORDERED: SODIUM CHLORIDE 0.9% 1,000 ML IV PRN (09:48)
[2019-07-01 11:05] LABS: % Iron Saturation 20.9 % (18-50)
[2019-07-01] MEDS ORDERED: HEPARIN LOCK FLUSH 500 UNIT/5 ML SYRINGE IV PRN (11:33)
[2019-07-01 12:13] LABS: Apearance,Urine CLEAR (Clear); Bacteria,Urine Many /HPF (Few); Bilirubin,Urine Negative (Negative); Blood, Urine Small mg/dL (Negative); Glucose,Urine (UA) Negative (Negative); Ketones,Urine Negative (Negative); Nitrite,Urine Positive (Negative); Protein,Urine Negative; Squamous Epithelial Cell,Urine Occasional /HPF (0-10); Urine Color Straw (Yellow); Urine Specific Gravity 1.006 (1.001-1.035); Urine Urobilinogen < 2.0 EU/DL (0.2-1.0); WBC,Urine 1 /HPF (0-6)
[2019-07-01 14:30] LABS: Basophils % 0.2 % (0.0-0.8); Eosinophils # 0.1 10*3/uL (0.0-0.87); Eosinophils % 1.2 % (0.00-10.9); Hematocrit 26.1 VOL% (35.7-47.0); Hemoglobin 7.6 GM/DL (12.0-16.0); Immature Granulocytes % 0.2 %; Immature Granulocytes Absolute 0.01 #; Lymphocytes # 0.6 10*3/uL (1.4-4.0); Lymphocytes % 12.7 % (21.3-54.2); Mean Corpuscular HGB Conc 29.1 GM/DL (32-36); Mean Corpuscular Volume 97.8 FL (87-102); Mean Platelet Volume 12.2 FL (9.6-12.0); Monocytes % 6.2 % (1.7-12.7); Neutrophils % 79.5 % (38.7-73.9); Platelet Count 145 T/CUMM (130-400); Red Blood Count 2.67 MC/CUMM (3.8-5.5); Red Cell Distribution Width 18.6 % (9.3-17.3)
[2019-07-01 14:56] LABS: Folate > 24.0 NG/ML (5.4-24.0); Vitamin B12 608 PG/ML (211-911)
[2019-07-01 15:18] LABS: Anisocytosis 1+; Hypochromasia 1+; Macrocytosis 1+; Polychromasia 1+
[2019-07-01 15:19] LABS: Platelet Estimate Normal; Poikilocytosis Slight; Schistocytes Slight
[2019-07-01 15:50] LABS: Sedimentation Rate-Westergren 113 MM/HR (0-30)
[2019-07-01] MEDS: WARFARIN 2.5 MG TABLET PO SCH (18:50)
[2019-07-01] MEDS: AMITRIPTYLINE 25 MG TABLET PO SCH (22:09)
[2019-07-01] MEDS: SIMVASTATIN 40 MG TABLET PO SCH (22:11)
[2019-07-02 06:12] LABS: INR 1.9; PT Patient Result 20.8 SECS (9.6-12.2)
[2019-07-02 07:15] LABS: Basophils % 0.2 % (0.0-0.8); Eosinophils % 0.5 % (0.00-10.9); Hematocrit 33.1 VOL% (35.7-47.0); Hemoglobin 10.2 GM/DL (12.0-16.0); Immature Granulocytes % 0.5 %; Immature Granulocytes Absolute 0.04 #; Lymphocytes # 0.5 10*3/uL (1.4-4.0); Mean Corpuscular HGB Conc 30.8 GM/DL (32-36); Mean Corpuscular Volume 93.5 FL (87-102); Mean Platelet Volume 12.8 FL (9.6-12.0); Monocytes % 5.5 % (1.7-12.7); Neutrophils % 87.3 % (38.7-73.9); Platelet Count 162 T/CUMM (130-400); Red Blood Count 3.54 MC/CUMM (3.8-5.5); Red Cell Distribution Width 18.1 % (9.3-17.3); White Blood Count 8.7 T/CUMM (4-12)
[2019-07-02 07:25] LABS: Calcium 7.6 MG/DL (8.5-10.1); Osmolality,Calculated 292.3 MOS/KG (273-304)
[2019-07-02] MEDS: INSULIN REGULAR 100 UNIT/ML SUBCUT SCH ×4 (09:11→20:54)
[2019-07-02] MEDS: sitaGLIPtin 25 MG TABLET PO SCH (09:11)
[2019-07-02] MEDS: FERROUS SULFATE 325 MG TABLET PO SCH ×3 (09:12→20:26)
[2019-07-02] MEDS: POTASSIUM CHLORIDE 20 MEQ TABLET PO SCH (09:12)
[2019-07-02] MEDS: PANTOPRAZOLE 40 MG TABLET PO SCH (09:12)
[2019-07-02] MEDS: carvediloL 25 MG TABLET PO SCH ×2 (09:12→20:26)
[2019-07-02] MEDS: ASPIRIN EC 81 MG TABLET PO SCH (09:12)
[2019-07-02] MEDS: chlordiazePOXIDE 10 MG CAPSULE PO SCH ×3 (09:12→20:26)
[2019-07-02] MEDS: NICOTINE 14 MG/24 HR PATCH TRANSDERM SCH (09:13)
[2019-07-02] MEDS: FUROSEMIDE 40 MG/4 ML VIAL IV SCH ×2 (10:43→15:51)
[2019-07-02] MEDS: ISOSORBIDE DINITRATE 20 MG TABLET PO SCH ×2 (10:44→20:28)
[2019-07-02] MEDS: WARFARIN 5 MG TABLET PO SCH (17:38)
[2019-07-02] MEDS: SIMVASTATIN 40 MG TABLET PO SCH (20:26)
[2019-07-02] MEDS: AMITRIPTYLINE 25 MG TABLET PO SCH (20:26)
[2019-07-03 04:45] LABS: INR 2.2
[2019-07-03 05:00] LABS: PT Patient Result 23.4 SECS (9.6-12.2)
[2019-07-03 07:03] LABS: Basophils % 0.2 % (0.0-0.8); Eosinophils # 0.1 10*3/uL (0.0-0.87); Hematocrit 31.2 VOL% (35.7-47.0); Hemoglobin 9.3 GM/DL (12.0-16.0); Immature Granulocytes % 0.2 %; Immature Granulocytes Absolute 0.01 #; Lymphocytes # 0.7 10*3/uL (1.4-4.0); Lymphocytes % 15.5 % (21.3-54.2); Mean Corpuscular HGB Conc 29.8 GM/DL (32-36); Mean Corpuscular Volume 95.4 FL (87-102); Neutrophils % 73.1 % (38.7-73.9); Platelet Count 157 T/CUMM (130-400); Red Blood Count 3.27 MC/CUMM (3.8-5.5); Red Cell Distribution Width 17.9 % (9.3-17.3); White Blood Count 4.5 T/CUMM (4-12)
[2019-07-03] MEDS: NICOTINE 14 MG/24 HR PATCH TRANSDERM SCH (08:45)
[2019-07-03] MEDS: ASPIRIN EC 81 MG TABLET PO SCH (08:45)
[2019-07-03] MEDS: PANTOPRAZOLE 40 MG TABLET PO SCH (08:45)
[2019-07-03] MEDS: ISOSORBIDE DINITRATE 20 MG TABLET PO SCH ×2 (08:45→21:01)
[2019-07-03] MEDS: chlordiazePOXIDE 10 MG CAPSULE PO SCH ×3 (08:46→21:02)
[2019-07-03] MEDS: sitaGLIPtin 25 MG TABLET PO SCH (08:46)
[2019-07-03] MEDS: FERROUS SULFATE 325 MG TABLET PO SCH ×3 (08:46→21:02)
[2019-07-03] MEDS: carvediloL 25 MG TABLET PO SCH ×2 (08:46→21:01)
[2019-07-03] MEDS: FUROSEMIDE 40 MG/4 ML VIAL IV SCH ×2 (08:46→15:45)
[2019-07-03] MEDS: INSULIN REGULAR 100 UNIT/ML SUBCUT SCH ×4 (08:47→21:00)
[2019-07-03] MEDS: POTASSIUM CHLORIDE 20 MEQ TABLET PO SCH (08:47)
[2019-07-03 09:01] LABS: Calcium 7.7 MG/DL (8.5-10.1); Osmolality,Calculated 293.3 MOS/KG (273-304)
[2019-07-03] MEDS: WARFARIN 2.5 MG TABLET PO SCH (17:56)
[2019-07-03] MEDS: AMITRIPTYLINE 25 MG TABLET PO SCH (21:01)
[2019-07-03] MEDS: SIMVASTATIN 40 MG TABLET PO SCH (21:02)
[2019-07-04 05:53] LABS: Basophils % 0.2 % (0.0-0.8); Eosinophils # 0.1 10*3/uL (0.0-0.87); Hematocrit 30.1 VOL% (35.7-47.0); Hemoglobin 9.3 GM/DL (12.0-16.0); Immature Granulocytes % 0.2 %; Immature Granulocytes Absolute 0.01 #; Lymphocytes # 0.6 10*3/uL (1.4-4.0); Mean Corpuscular HGB Conc 30.9 GM/DL (32-36); Mean Corpuscular Volume 93.5 FL (87-102); Monocytes % 5.9 % (1.7-12.7); Neutrophils % 79.7 % (38.7-73.9); Platelet Count 157 T/CUMM (130-400); Red Blood Count 3.22 MC/CUMM (3.8-5.5); Red Cell Distribution Width 17.2 % (9.3-17.3); White Blood Count 4.6 T/CUMM (4-12)
[2019-07-04 06:17] LABS: Osmolality,Calculated 299.1 MOS/KG (273-304)
[2019-07-04] MEDS ORDERED: FUROSEMIDE 80 MG TABLET PO SCH (08:00)
[2019-07-04] MEDS: INSULIN REGULAR 100 UNIT/ML SUBCUT SCH ×2 (08:38→11:25)
[2019-07-04] MEDS: ASPIRIN EC 81 MG TABLET PO SCH (08:41)
[2019-07-04] MEDS: PANTOPRAZOLE 40 MG TABLET PO SCH (08:41)
[2019-07-04] MEDS: FERROUS SULFATE 325 MG TABLET PO SCH ×2 (08:41→14:12)
[2019-07-04] MEDS: carvediloL 25 MG TABLET PO SCH (08:41)
[2019-07-04] MEDS: POTASSIUM CHLORIDE 20 MEQ TABLET PO SCH (08:42)
[2019-07-04] MEDS: chlordiazePOXIDE 10 MG CAPSULE PO SCH ×2 (08:42→14:12)
[2019-07-04] MEDS: ISOSORBIDE DINITRATE 20 MG TABLET PO SCH ×2 (08:42→09:17)
[2019-07-04] MEDS: sitaGLIPtin 25 MG TABLET PO SCH (08:42)
[2019-07-04] MEDS: NICOTINE 14 MG/24 HR PATCH TRANSDERM SCH (08:43)
[2019-07-04] MEDS ORDERED: FUROSEMIDE 40 MG/4 ML VIAL IV SCH ×2 (09:00→10:00)
[2019-07-04 09:33] LABS: INR 2.1; PT Patient Result 22.7 SECS (9.6-12.2)
[2019-07-04 09:34] LABS: Hemoglobin A1 (Alkaline) 97.9 % (96.5-98.5); Hemoglobin A2 (Alkaline) 2.1 % (1.5-3.5)
[2019-07-04 12:08] VITALS: BP 122/65
[2019-07-04] MEDS: ALBUTEROL/IPRATROPIUM 3 ML NEB RESP TX PRN (14:39)
[2019-07-04] MEDS ORDERED: WARFARIN 2.5 MG TABLET PO ONE (15:33)
[2019-07-04] MEDS ORDERED: hydrALAZINE 25 MG TABLET PO SCH (21:00)
== END 2019-07-04 15:48 | disposition home or self-care (01) | DRG 291 ==
LOC: EDBD → EDUNIT# → N.ED 12:52 → N.EDINP 12:52 → N.2W 16:32 → N.4E 07-01 18:25
PROVIDERS: ADMIT Internal Medicine; ATTEND Internal Medicine

== ENCOUNTER 2019-08-12 17:47 | Inpatient (IN) ==
[2019-08-12] MEDS ORDERED: SODIUM CHLORIDE 0.9% 1,000 ML IV STA (18:19)
[2019-08-12] MEDS ORDERED: PANTOPRAZOLE INJ 80 MG in SODIUM CHLORIDE 0.9% 100 ML IV STA (18:19)
[2019-08-12 18:40] LABS: Basophils % 0.2 % (0.0-0.8); Eosinophils # 0.1 10*3/uL (0.0-0.87); Eosinophils % 0.9 % (0.00-10.9); Hematocrit 27.7 VOL% (35.7-47.0); Hemoglobin 8.7 GM/DL (12.0-16.0); Immature Granulocytes % 0.5 %; Immature Granulocytes Absolute 0.03 #; Lymphocytes # 0.8 10*3/uL (1.4-4.0); Lymphocytes % 11.5 % (21.3-54.2); Mean Corpuscular HGB Conc 31.4 GM/DL (32-36); Mean Corpuscular Volume 91.4 FL (87-102); Mean Platelet Volume 12.4 FL (9.6-12.0); Neutrophils % 81.9 % (38.7-73.9); Platelet Count 156 T/CUMM (130-400); Red Blood Count 3.03 MC/CUMM (3.8-5.5); Red Cell Distribution Width 17.7 % (9.3-17.3); White Blood Count 6.6 T/CUMM (4-12)
[2019-08-12 18:51] LABS: Partial Thromboplastin Time 39.6 SECS (20.8-36.0)
[2019-08-12 18:52] LABS: PT Patient Result 21.3 SECS (9.6-12.2)
[2019-08-12 19:06] LABS: Albumin 3.3 G/DL (3.4-5.0); Bilirubin,Total 0.5 MG/DL (0.2-1.0); Calcium 7.4 MG/DL (8.5-10.1); Osmolality,Calculated 286.5 MOS/KG (273-304); Total Protein 7.7 G/DL (6.4-8.3)
[2019-08-12] MEDS ORDERED: POTASSIUM CHLORIDE 20 MEQ/15 ML UDCUP PO ONE (19:22)
[2019-08-12] MEDS ORDERED: NICOTINE 21 MG/24 HR PATCH TRANSDERM PRN (20:19)
[2019-08-12] MEDS ORDERED: ONDANSETRON 4 MG/2 ML VIAL IV PRN (20:19)
[2019-08-12] MEDS ORDERED: POTASSIUM CHLORIDE RIDER 10 MEQ in PREMIX 1 EACH IV PRN (20:40)
[2019-08-12] MEDS ORDERED: MAGNESIUM SULF RIDER 4 GM in PREMIX 1 EACH IV PRN (20:40)
[2019-08-12] MEDS ORDERED: MAGNESIUM SULF RIDER 2 GM in PREMIX 1 EACH IV PRN (20:40)
[2019-08-12] MEDS ORDERED: FUROSEMIDE 80 MG TABLET PO SCH (22:08)
[2019-08-12] MEDS ORDERED: NITROGLYCERIN SL 0.4 MG TABLET SL PRN (22:08)
[2019-08-12] MEDS: PANTOPRAZOLE INJ 200 MG in SODIUM CHLORIDE 0.9% 250 ML IV SCH (22:50)
[2019-08-12] MEDS: SODIUM CHLORIDE 0.9% 1,000 ML IV SCH (22:50)
[2019-08-12] MEDS: carvediloL 25 MG TABLET PO SCH (22:51)
[2019-08-12] MEDS: AMITRIPTYLINE 25 MG TABLET PO SCH (22:51)
[2019-08-12] MEDS: hydrALAZINE 25 MG TABLET PO SCH (22:51)
[2019-08-12] MEDS: SIMVASTATIN 40 MG TABLET PO SCH (22:51)
[2019-08-12] MEDS: LATANOPROST 0.005% OPH SOLN 2.5 ML BOTTLE BOTH EYES SCH (22:51)
[2019-08-12] MEDS: chlordiazePOXIDE 10 MG CAPSULE PO SCH (22:51)
[2019-08-13 01:01] LABS: Basophils % 0.2 % (0.0-0.8); Eosinophils # 0.1 10*3/uL (0.0-0.87); Eosinophils % 0.9 % (0.00-10.9); Hematocrit 24.1 VOL% (35.7-47.0); Hemoglobin 7.5 GM/DL (12.0-16.0); Immature Granulocytes % 0.4 %; Immature Granulocytes Absolute 0.02 #; Lymphocytes # 0.6 10*3/uL (1.4-4.0); Lymphocytes % 11.4 % (21.3-54.2); Mean Corpuscular HGB Conc 31.1 GM/DL (32-36); Mean Corpuscular Volume 92.7 FL (87-102); Mean Platelet Volume 12.8 FL (9.6-12.0); Monocytes % 5.3 % (1.7-12.7); Neutrophils % 81.8 % (38.7-73.9); Platelet Count 132 T/CUMM (130-400); Red Cell Distribution Width 17.4 % (9.3-17.3); White Blood Count 5.3 T/CUMM (4-12)
[2019-08-13 06:03] LABS: Eosinophils # 0.1 10*3/uL (0.0-0.87); Eosinophils % 1.1 % (0.00-10.9); Hematocrit 23.6 VOL% (35.7-47.0); Hemoglobin 7.2 GM/DL (12.0-16.0); Immature Granulocytes % 0.5 %; Immature Granulocytes Absolute 0.02 #; Lymphocytes # 0.6 10*3/uL (1.4-4.0); Lymphocytes % 14.4 % (21.3-54.2); Mean Corpuscular HGB Conc 30.5 GM/DL (32-36); Mean Corpuscular Volume 92.5 FL (87-102); Mean Platelet Volume 12.6 FL (9.6-12.0); Monocytes % 6.5 % (1.7-12.7); Neutrophils % 77.5 % (38.7-73.9); Platelet Count 124 T/CUMM (130-400); Red Blood Count 2.55 MC/CUMM (3.8-5.5); Red Cell Distribution Width 17.6 % (9.3-17.3); White Blood Count 4.4 T/CUMM (4-12)
[2019-08-13 06:25] LABS: Bilirubin,Total 0.6 MG/DL (0.2-1.0); Calcium 7.1 MG/DL (8.5-10.1); Osmolality,Calculated 294.7 MOS/KG (273-304); Total Protein 6.6 G/DL (6.4-8.3)
[2019-08-13] MEDS ORDERED: SODIUM CHLORIDE 0.9% 1,000 ML IV PRN (07:43)
[2019-08-13] MEDS: POTASSIUM CHLORIDE 20 MEQ/15 ML UDCUP PO SCH ×4 (08:43→21:41)
[2019-08-13] MEDS: MAGNESIUM SULFATE 1 GM/2 ML VIAL IM SCH ×2 (08:43→13:45)
[2019-08-13] MEDS: hydrALAZINE 25 MG TABLET PO SCH ×2 (08:44→21:40)
[2019-08-13] MEDS: carvediloL 25 MG TABLET PO SCH ×2 (08:44→16:52)
[2019-08-13] MEDS: ISOSORBIDE DINITRATE 20 MG TABLET PO SCH ×2 (08:44→21:40)
[2019-08-13] MEDS ORDERED: FUROSEMIDE 40 MG/4 ML VIAL IV SCH (09:00)
[2019-08-13] MEDS ORDERED: CALCIUM GLUCONATE 2,000 MG in SODIUM CHLORIDE 0.9% 100 ML IV ONE (10:00)
[2019-08-13] MEDS: chlordiazePOXIDE 10 MG CAPSULE PO SCH ×3 (10:50→21:40)
[2019-08-13] MEDS: POTASSIUM CHLORIDE 20 MEQ TABLET PO SCH (10:52)
[2019-08-13] MEDS: ACETAMINOPHEN 325 MG TABLET PO PRN (10:53)
[2019-08-13] MEDS ORDERED: POTASSIUM CHLORIDE 20 MEQ/15 ML UDCUP PO ONE (21:30)
[2019-08-13] MEDS: AMITRIPTYLINE 25 MG TABLET PO SCH (21:40)
[2019-08-13] MEDS: SIMVASTATIN 40 MG TABLET PO SCH (21:40)
[2019-08-13] MEDS: LATANOPROST 0.005% OPH SOLN 2.5 ML BOTTLE BOTH EYES SCH (21:42)
[2019-08-13] MEDS: SODIUM CHLORIDE 0.9% 1,000 ML IV SCH ×2 (21:53→22:46)
[2019-08-13 23:47] LABS: Hematocrit 26.2 VOL% (35.7-47.0); Hemoglobin 7.9 GM/DL (12.0-16.0)
[2019-08-14] MEDS: PANTOPRAZOLE INJ 200 MG in SODIUM CHLORIDE 0.9% 250 ML IV SCH ×2 (02:24→17:43)
[2019-08-14 05:59] LABS: Eosinophils # 0.1 10*3/uL (0.0-0.87); Eosinophils % 1.2 % (0.00-10.9); Hemoglobin 7.7 GM/DL (12.0-16.0); Immature Granulocytes % 0.5 %; Immature Granulocytes Absolute 0.03 #; Lymphocytes # 0.5 10*3/uL (1.4-4.0); Lymphocytes % 8.7 % (21.3-54.2); Mean Corpuscular HGB Conc 29.6 GM/DL (32-36); Mean Corpuscular Volume 95.9 FL (87-102); Monocytes % 6.6 % (1.7-12.7); Platelet Count 109 T/CUMM (130-400); Red Blood Count 2.71 MC/CUMM (3.8-5.5); Red Cell Distribution Width 17.7 % (9.3-17.3); White Blood Count 5.7 T/CUMM (4-12)
[2019-08-14 06:11] LABS: INR 2.3
[2019-08-14 06:18] LABS: PT Patient Result 25.1 SECS (9.6-12.2); Partial Thromboplastin Time 43.4 SECS (20.8-36.0)
[2019-08-14 06:23] LABS: Calcium 7.2 MG/DL (8.5-10.1); Osmolality,Calculated 292.7 MOS/KG (273-304)
[2019-08-14] MEDS ORDERED: FUROSEMIDE 20 MG/2 ML VIAL IV ONE (08:22)
[2019-08-14] MEDS: CALCIUM CARBONATE CHEW 500 MG TABLET PO SCH ×2 (08:46→22:46)
[2019-08-14] MEDS: POTASSIUM CHLORIDE 20 MEQ TABLET PO SCH (08:47)
[2019-08-14] MEDS: ISOSORBIDE DINITRATE 20 MG TABLET PO SCH ×2 (08:47→22:44)
[2019-08-14] MEDS: hydrALAZINE 25 MG TABLET PO SCH ×2 (08:47→22:46)
[2019-08-14] MEDS: carvediloL 25 MG TABLET PO SCH ×2 (08:47→16:23)
[2019-08-14] MEDS: FUROSEMIDE 40 MG/4 ML VIAL IV SCH ×2 (08:47→22:46)
[2019-08-14 14:58] LABS: Hematocrit 30.9 VOL% (35.7-47.0)
[2019-08-14 14:59] LABS: Hemoglobin 9.4 GM/DL (12.0-16.0)
[2019-08-14] MEDS: SIMVASTATIN 40 MG TABLET PO SCH (22:45)
[2019-08-14] MEDS: LATANOPROST 0.005% OPH SOLN 2.5 ML BOTTLE BOTH EYES SCH (22:45)
[2019-08-14] MEDS: AMITRIPTYLINE 25 MG TABLET PO SCH (22:47)
[2019-08-14 23:25] LABS: Hematocrit 32.1 VOL% (35.7-47.0); Hemoglobin 9.5 GM/DL (12.0-16.0)
[2019-08-15 05:09] LABS: Basophils % 0.2 % (0.0-0.8); Eosinophils # 0.1 10*3/uL (0.0-0.87); Eosinophils % 1.4 % (0.00-10.9); Hematocrit 30.6 VOL% (35.7-47.0); Hemoglobin 9.2 GM/DL (12.0-16.0); Immature Granulocytes % 0.5 %; Immature Granulocytes Absolute 0.03 #; Lymphocytes # 0.6 10*3/uL (1.4-4.0); Lymphocytes % 9.5 % (21.3-54.2); Mean Corpuscular HGB Conc 30.1 GM/DL (32-36); Mean Corpuscular Volume 95.3 FL (87-102); Mean Platelet Volume 13.2 FL (9.6-12.0); Monocytes % 6.4 % (1.7-12.7); Red Blood Count 3.21 MC/CUMM (3.8-5.5); Red Cell Distribution Width 17.2 % (9.3-17.3); White Blood Count 5.8 T/CUMM (4-12)
[2019-08-15 05:12] LABS: Platelet Count 92 T/CUMM (130-400)
[2019-08-15 05:29] LABS: Hypochromasia Slight; Ovalocytes Slight; Platelet Estimate Decreased
[2019-08-15 05:47] LABS: Calcium 8.5 MG/DL (8.5-10.1); Osmolality,Calculated 283.4 MOS/KG (273-304)
[2019-08-15] MEDS: POTASSIUM CHLORIDE 20 MEQ TABLET PO SCH (09:26)
[2019-08-15] MEDS: ISOSORBIDE DINITRATE 20 MG TABLET PO SCH ×2 (09:26→21:35)
[2019-08-15] MEDS: hydrALAZINE 25 MG TABLET PO SCH ×2 (09:26→21:35)
[2019-08-15] MEDS: carvediloL 25 MG TABLET PO SCH ×2 (09:26→17:46)
[2019-08-15] MEDS: CALCIUM CARBONATE CHEW 500 MG TABLET PO SCH ×2 (09:27→21:34)
[2019-08-15] MEDS: FUROSEMIDE 40 MG/4 ML VIAL IV SCH (09:27)
[2019-08-15 09:48] LABS: INR 2.4
[2019-08-15 09:50] LABS: PT Patient Result 26.2 SECS (9.6-12.2)
[2019-08-15 15:18] LABS: Hematocrit 31.9 VOL% (35.7-47.0); Hemoglobin 9.6 GM/DL (12.0-16.0)
[2019-08-15] MEDS: FUROSEMIDE 80 MG TABLET PO SCH (15:49)
[2019-08-15] MEDS: AMITRIPTYLINE 25 MG TABLET PO SCH (21:35)
[2019-08-15] MEDS: SIMVASTATIN 40 MG TABLET PO SCH (21:36)
[2019-08-15] MEDS: LATANOPROST 0.005% OPH SOLN 2.5 ML BOTTLE BOTH EYES SCH (21:40)
[2019-08-16 06:34] LABS: Basophils % 0.2 % (0.0-0.8); Eosinophils # 0.1 10*3/uL (0.0-0.87); Eosinophils % 1.4 % (0.00-10.9); Hematocrit 29.4 VOL% (35.7-47.0); Hemoglobin 8.9 GM/DL (12.0-16.0); Immature Granulocytes % 0.3 %; Immature Granulocytes Absolute 0.02 #; Lymphocytes # 0.8 10*3/uL (1.4-4.0); Lymphocytes % 13.1 % (21.3-54.2); Mean Corpuscular HGB Conc 30.3 GM/DL (32-36); Mean Corpuscular Volume 94.2 FL (87-102); Mean Platelet Volume 12.5 FL (9.6-12.0); Platelet Count 134 T/CUMM (130-400); Red Blood Count 3.12 MC/CUMM (3.8-5.5); Red Cell Distribution Width 16.8 % (9.3-17.3); White Blood Count 5.7 T/CUMM (4-12)
[2019-08-16 06:44] LABS: INR 2.2
[2019-08-16 06:48] LABS: PT Patient Result 23.9 SECS (9.6-12.2)
[2019-08-16 06:58] LABS: Calcium 8.3 MG/DL (8.5-10.1); Osmolality,Calculated 280.8 MOS/KG (273-304)
[2019-08-16] MEDS: LACTATED RINGERS 1,000 ML IV SCH (08:30)
[2019-08-16] MEDS ORDERED: propofoL 200 MG/20 ML VIAL IV ONE (10:00)
[2019-08-16] MEDS ORDERED: LIDOCAINE 2% 5 ML VIAL ONE (10:00)
[2019-08-16] MEDS ORDERED: ETOMIDATE 20 MG/10 ML VIAL IV ONE (10:00)
[2019-08-16] MEDS: carvediloL 25 MG TABLET PO SCH ×2 (11:06→17:29)
[2019-08-16] MEDS: hydrALAZINE 25 MG TABLET PO SCH ×2 (11:06→20:51)
[2019-08-16] MEDS: ISOSORBIDE DINITRATE 20 MG TABLET PO SCH ×2 (11:07→20:51)
[2019-08-16] MEDS ORDERED: FUROSEMIDE 40 MG/4 ML VIAL IV ONE (11:59)
[2019-08-16] MEDS: FUROSEMIDE 80 MG TABLET PO SCH ×2 (13:53→17:29)
[2019-08-16] MEDS: POTASSIUM CHLORIDE 20 MEQ TABLET PO SCH (13:53)
[2019-08-16] MEDS: CALCIUM CARBONATE CHEW 500 MG TABLET PO SCH ×2 (13:54→20:50)
[2019-08-16] MEDS: PANTOPRAZOLE 40 MG VIAL IV SCH ×2 (13:57→20:51)
[2019-08-16 17:24] LABS: Apearance,Urine CLEAR (Clear); Bacteria,Urine Many /HPF (Few); Bilirubin,Urine Negative (Negative); Blood, Urine Small mg/dL (Negative); Glucose,Urine (UA) Negative (Negative); Ketones,Urine Negative (Negative); Nitrite,Urine Negative (Negative); Protein,Urine Negative; Urine Color Yellow (Yellow); Urine Urobilinogen < 2.0 EU/DL (0.2-1.0); WBC,Urine 28 /HPF (0-6)
[2019-08-16] MEDS: AMITRIPTYLINE 25 MG TABLET PO SCH (20:51)
[2019-08-16] MEDS: SIMVASTATIN 40 MG TABLET PO SCH (20:51)
[2019-08-16] MEDS: LATANOPROST 0.005% OPH SOLN 2.5 ML BOTTLE BOTH EYES SCH (20:58)
[2019-08-17 06:20] LABS: Basophils % 0.2 % (0.0-0.8); Eosinophils # 0.1 10*3/uL (0.0-0.87); Eosinophils % 1.2 % (0.00-10.9); Hematocrit 29.9 VOL% (35.7-47.0); Hemoglobin 9.1 GM/DL (12.0-16.0); Immature Granulocytes % 0.2 %; Immature Granulocytes Absolute 0.01 #; Lymphocytes # 0.7 10*3/uL (1.4-4.0); Mean Corpuscular HGB Conc 30.4 GM/DL (32-36); Mean Corpuscular Volume 94.6 FL (87-102); Mean Platelet Volume 11.6 FL (9.6-12.0); Monocytes % 8.4 % (1.7-12.7); Platelet Count 152 T/CUMM (130-400); Red Blood Count 3.16 MC/CUMM (3.8-5.5); Red Cell Distribution Width 16.4 % (9.3-17.3)
[2019-08-17 06:28] LABS: INR 1.5; PT Patient Result 16.1 SECS (9.6-12.2)
[2019-08-17 06:36] LABS: Calcium 8.4 MG/DL (8.5-10.1); Osmolality,Calculated 285.4 MOS/KG (273-304)
[2019-08-17] MEDS ORDERED: WARFARIN 5 MG TABLET PO ONE (08:00)
[2019-08-17] MEDS: ISOSORBIDE DINITRATE 20 MG TABLET PO SCH ×2 (09:40→21:44)
[2019-08-17] MEDS: carvediloL 25 MG TABLET PO SCH ×2 (09:41→21:44)
[2019-08-17] MEDS: hydrALAZINE 25 MG TABLET PO SCH ×2 (09:41→21:43)
[2019-08-17] MEDS: POTASSIUM CHLORIDE 20 MEQ TABLET PO SCH (09:41)
[2019-08-17] MEDS: FUROSEMIDE 80 MG TABLET PO SCH ×2 (09:41→21:45)
[2019-08-17] MEDS: CALCIUM CARBONATE CHEW 500 MG TABLET PO SCH ×2 (09:42→21:43)
[2019-08-17] MEDS: HEPARIN DRIP 25,000 UNITS/500 ML PREMIX IV SCH (10:38)
[2019-08-17] MEDS: METOCLOPRAMIDE 10 MG/10 ML UDCUP PO SCH ×3 (19:25→21:45)
[2019-08-17] MEDS: SIMVASTATIN 40 MG TABLET PO SCH (21:43)
[2019-08-17] MEDS: PANTOPRAZOLE 40 MG TABLET PO SCH ×2 (21:43→21:44)
[2019-08-17] MEDS: AMITRIPTYLINE 25 MG TABLET PO SCH (21:44)
[2019-08-17] MEDS: WARFARIN 5 MG TABLET PO SCH (21:44)
[2019-08-17] MEDS: LATANOPROST 0.005% OPH SOLN 2.5 ML BOTTLE BOTH EYES SCH (21:45)
[2019-08-17] MEDS: LACTATED RINGERS 1,000 ML IV SCH (23:07)
[2019-08-18 04:52] LABS: Basophils % 0.2 % (0.0-0.8); Eosinophils # 0.1 10*3/uL (0.0-0.87); Eosinophils % 1.9 % (0.00-10.9); Hematocrit 29.2 VOL% (35.7-47.0); Hemoglobin 8.7 GM/DL (12.0-16.0); Immature Granulocytes % 0.6 %; Immature Granulocytes Absolute 0.03 #; Lymphocytes # 0.7 10*3/uL (1.4-4.0); Lymphocytes % 14.4 % (21.3-54.2); Mean Corpuscular HGB Conc 29.8 GM/DL (32-36); Mean Corpuscular Volume 94.5 FL (87-102); Mean Platelet Volume 11.5 FL (9.6-12.0); Monocytes % 8.1 % (1.7-12.7); Neutrophils % 74.8 % (38.7-73.9); Platelet Count 158 T/CUMM (130-400); Red Blood Count 3.09 MC/CUMM (3.8-5.5); Red Cell Distribution Width 16.3 % (9.3-17.3); White Blood Count 4.7 T/CUMM (4-12)
[2019-08-18 05:01] LABS: INR 1.2; PT Patient Result 13.4 SECS (9.6-12.2)
[2019-08-18 05:49] LABS: Calcium 8.4 MG/DL (8.5-10.1); Osmolality,Calculated 287.4 MOS/KG (273-304)
[2019-08-18] MEDS ORDERED: WARFARIN 5 MG TABLET PO ONE (08:17)
[2019-08-18] MEDS: HEPARIN DRIP 25,000 UNITS/500 ML PREMIX IV SCH (10:02)
[2019-08-18] MEDS: ISOSORBIDE DINITRATE 20 MG TABLET PO SCH ×2 (10:03→21:16)
[2019-08-18] MEDS: CALCIUM CARBONATE CHEW 500 MG TABLET PO SCH ×2 (10:03→21:16)
[2019-08-18] MEDS: PANTOPRAZOLE 40 MG TABLET PO SCH ×2 (10:04→21:16)
[2019-08-18] MEDS: POTASSIUM CHLORIDE 20 MEQ TABLET PO SCH (10:04)
[2019-08-18] MEDS: hydrALAZINE 25 MG TABLET PO SCH ×2 (10:04→21:16)
[2019-08-18] MEDS: carvediloL 25 MG TABLET PO SCH ×2 (10:04→16:26)
[2019-08-18] MEDS: LACTATED RINGERS 1,000 ML IV SCH (10:05)
[2019-08-18] MEDS: FUROSEMIDE 80 MG TABLET PO SCH ×2 (10:06→16:26)
[2019-08-18] MEDS: METOCLOPRAMIDE 10 MG/10 ML UDCUP PO SCH ×4 (10:06→21:16)
[2019-08-18] MEDS: WARFARIN 5 MG TABLET PO SCH (18:32)
[2019-08-18 18:37] LABS: INR 1.2; PT Patient Result 13.4 SECS (9.6-12.2)
[2019-08-18 18:40] LABS: Partial Thromboplastin Time 77.6 SECS (20.8-36.0)
[2019-08-18] MEDS: SIMVASTATIN 40 MG TABLET PO SCH (21:16)
[2019-08-18] MEDS: AMITRIPTYLINE 25 MG TABLET PO SCH (21:16)
[2019-08-18] MEDS: LATANOPROST 0.005% OPH SOLN 2.5 ML BOTTLE BOTH EYES SCH (21:16)
[2019-08-19 02:15] LABS: INR 1.6; PT Patient Result 17.1 SECS (9.6-12.2)
[2019-08-19 02:17] LABS: Partial Thromboplastin Time 78.1 SECS (20.8-36.0)
[2019-08-19] MEDS: HEPARIN DRIP 25,000 UNITS/500 ML PREMIX IV SCH ×2 (04:15→22:15)
[2019-08-19] MEDS: ACETAMINOPHEN 325 MG TABLET PO PRN (04:39)
[2019-08-19 05:49] LABS: Basophils % 0.4 % (0.0-0.8); Eosinophils # 0.1 10*3/uL (0.0-0.87); Hematocrit 30.4 VOL% (35.7-47.0); Hemoglobin 9.2 GM/DL (12.0-16.0); Immature Granulocytes % 0.6 %; Immature Granulocytes Absolute 0.03 #; Lymphocytes # 0.9 10*3/uL (1.4-4.0); Lymphocytes % 16.5 % (21.3-54.2); Mean Corpuscular HGB Conc 30.3 GM/DL (32-36); Mean Corpuscular Volume 95.3 FL (87-102); Monocytes % 8.1 % (1.7-12.7); Neutrophils % 72.4 % (38.7-73.9); Platelet Count 160 T/CUMM (130-400); Red Blood Count 3.19 MC/CUMM (3.8-5.5); Red Cell Distribution Width 16.3 % (9.3-17.3); White Blood Count 5.4 T/CUMM (4-12)
[2019-08-19 05:51] LABS: INR 1.4; PT Patient Result 14.7 SECS (9.6-12.2)
[2019-08-19 06:20] LABS: Calcium 8.4 MG/DL (8.5-10.1); Osmolality,Calculated 284.7 MOS/KG (273-304)
[2019-08-19] MEDS ORDERED: WARFARIN 5 MG TABLET PO ONE (08:41)
[2019-08-19] MEDS: hydrALAZINE 25 MG TABLET PO SCH ×2 (09:07→21:10)
[2019-08-19] MEDS: CALCIUM CARBONATE CHEW 500 MG TABLET PO SCH ×2 (09:07→21:11)
[2019-08-19] MEDS: POTASSIUM CHLORIDE 20 MEQ TABLET PO SCH (09:07)
[2019-08-19] MEDS: METOCLOPRAMIDE 10 MG/10 ML UDCUP PO SCH ×4 (09:07→21:11)
[2019-08-19] MEDS: ISOSORBIDE DINITRATE 20 MG TABLET PO SCH ×2 (09:07→21:10)
[2019-08-19] MEDS: FUROSEMIDE 80 MG TABLET PO SCH ×2 (09:08→16:20)
[2019-08-19] MEDS: PANTOPRAZOLE 40 MG TABLET PO SCH ×2 (09:08→21:11)
[2019-08-19] MEDS: carvediloL 25 MG TABLET PO SCH ×2 (09:08→16:20)
[2019-08-19] MEDS: LACTATED RINGERS 1,000 ML IV SCH (12:59)
[2019-08-19 19:32] LABS: INR 1.6; PT Patient Result 17.2 SECS (9.6-12.2)
[2019-08-19] MEDS: WARFARIN 5 MG TABLET PO SCH (19:32)
[2019-08-19 19:40] LABS: Partial Thromboplastin Time 106.4 SECS (20.8-36.0)
[2019-08-19] MEDS: AMITRIPTYLINE 25 MG TABLET PO SCH (21:10)
[2019-08-19] MEDS: SIMVASTATIN 40 MG TABLET PO SCH (21:12)
[2019-08-19] MEDS: LATANOPROST 0.005% OPH SOLN 2.5 ML BOTTLE BOTH EYES SCH (21:15)
[2019-08-20 06:41] LABS: Basophils % 0.2 % (0.0-0.8); Eosinophils # 0.1 10*3/uL (0.0-0.87); Eosinophils % 1.8 % (0.00-10.9); Hematocrit 29.5 VOL% (35.7-47.0); Hemoglobin 8.8 GM/DL (12.0-16.0); Immature Granulocytes % 0.2 %; Immature Granulocytes Absolute 0.01 #; Lymphocytes # 0.8 10*3/uL (1.4-4.0); Lymphocytes % 15.6 % (21.3-54.2); Mean Corpuscular HGB Conc 29.8 GM/DL (32-36); Mean Corpuscular Volume 95.5 FL (87-102); Mean Platelet Volume 11.8 FL (9.6-12.0); Monocytes % 9.1 % (1.7-12.7); Neutrophils % 73.1 % (38.7-73.9); Platelet Count 147 T/CUMM (130-400); Red Blood Count 3.09 MC/CUMM (3.8-5.5); Red Cell Distribution Width 16.5 % (9.3-17.3); White Blood Count 5.1 T/CUMM (4-12)
[2019-08-20 06:52] LABS: INR 1.9; PT Patient Result 20.2 SECS (9.6-12.2)
[2019-08-20 06:56] LABS: Calcium 8.4 MG/DL (8.5-10.1); Osmolality,Calculated 282.8 MOS/KG (273-304)
[2019-08-20] MEDS ORDERED: WARFARIN 5 MG TABLET PO ONE (09:22)
[2019-08-20] MEDS: CALCIUM CARBONATE CHEW 500 MG TABLET PO SCH ×2 (10:00→21:38)
[2019-08-20] MEDS: ASPIRIN EC 81 MG TABLET PO SCH (10:00)
[2019-08-20] MEDS: POTASSIUM CHLORIDE 20 MEQ TABLET PO SCH (10:01)
[2019-08-20] MEDS: FUROSEMIDE 80 MG TABLET PO SCH ×2 (10:01→17:34)
[2019-08-20] MEDS: ISOSORBIDE DINITRATE 20 MG TABLET PO SCH ×2 (10:01→21:38)
[2019-08-20] MEDS: PANTOPRAZOLE 40 MG TABLET PO SCH ×2 (10:01→21:39)
[2019-08-20] MEDS: carvediloL 25 MG TABLET PO SCH ×2 (10:01→17:34)
[2019-08-20] MEDS: METOCLOPRAMIDE 10 MG/10 ML UDCUP PO SCH ×4 (10:02→21:38)
[2019-08-20] MEDS: hydrALAZINE 25 MG TABLET PO SCH (15:39)
[2019-08-20 15:53] LABS: PT Patient Result 21.9 SECS (9.6-12.2); Partial Thromboplastin Time 78.7 SECS (20.8-36.0)
[2019-08-20] MEDS: WARFARIN 5 MG TABLET PO SCH (17:34)
[2019-08-20] MEDS: SIMVASTATIN 40 MG TABLET PO SCH (21:39)
[2019-08-20] MEDS: AMITRIPTYLINE 25 MG TABLET PO SCH (21:39)
[2019-08-20] MEDS: LATANOPROST 0.005% OPH SOLN 2.5 ML BOTTLE BOTH EYES SCH (21:40)
[2019-08-20] MEDS: HEPARIN DRIP 25,000 UNITS/500 ML PREMIX IV SCH (23:36)
[2019-08-20 23:57] LABS: INR 2.5; Partial Thromboplastin Time 40.2 SECS (20.8-36.0)
[2019-08-21 00:01] LABS: PT Patient Result 26.8 SECS (9.6-12.2)
[2019-08-21 06:28] LABS: Basophils % 0.2 % (0.0-0.8); Eosinophils # 0.1 10*3/uL (0.0-0.87); Eosinophils % 0.9 % (0.00-10.9); Hematocrit 29.2 VOL% (35.7-47.0); Hemoglobin 8.9 GM/DL (12.0-16.0); Immature Granulocytes % 0.4 %; Immature Granulocytes Absolute 0.02 #; Lymphocytes # 0.5 10*3/uL (1.4-4.0); Lymphocytes % 8.4 % (21.3-54.2); Mean Corpuscular HGB Conc 30.5 GM/DL (32-36); Mean Corpuscular Volume 94.2 FL (87-102); Mean Platelet Volume 11.2 FL (9.6-12.0); Monocytes % 5.6 % (1.7-12.7); Neutrophils % 84.5 % (38.7-73.9); Platelet Count 141 T/CUMM (130-400); Red Cell Distribution Width 16.4 % (9.3-17.3); White Blood Count 5.7 T/CUMM (4-12)
[2019-08-21 06:54] LABS: Calcium 8.3 MG/DL (8.5-10.1)
[2019-08-21 07:12] LABS: INR 2.4
[2019-08-21] MEDS: LACTATED RINGERS 1,000 ML IV SCH ×2 (07:49→09:49)
[2019-08-21] MEDS ORDERED: WARFARIN 4 MG TABLET PO ONE (08:04)
[2019-08-21] MEDS: HEPARIN DRIP 25,000 UNITS/500 ML PREMIX IV SCH ×2 (10:37)
[2019-08-21] MEDS: CALCIUM CARBONATE CHEW 500 MG TABLET PO SCH ×2 (10:45→22:30)
[2019-08-21] MEDS: ISOSORBIDE DINITRATE 20 MG TABLET PO SCH ×2 (10:45→22:30)
[2019-08-21] MEDS: FUROSEMIDE 80 MG TABLET PO SCH ×2 (10:46→16:20)
[2019-08-21] MEDS: PANTOPRAZOLE 40 MG TABLET PO SCH ×2 (10:46→22:30)
[2019-08-21] MEDS: POTASSIUM CHLORIDE 20 MEQ TABLET PO SCH (10:46)
[2019-08-21] MEDS: METOCLOPRAMIDE 10 MG/10 ML UDCUP PO SCH ×4 (10:46→22:31)
[2019-08-21] MEDS: carvediloL 25 MG TABLET PO SCH ×2 (10:46→16:20)
[2019-08-21] MEDS: ASPIRIN EC 81 MG TABLET PO SCH (10:46)
[2019-08-21 17:11] LABS: INR 2.6; PT Patient Result 28.1 SECS (9.6-12.2); Partial Thromboplastin Time 48.1 SECS (20.8-36.0)
[2019-08-21] MEDS: WARFARIN 5 MG TABLET PO SCH (17:26)
[2019-08-21] MEDS: ACETAMINOPHEN 325 MG TABLET PO PRN ×2 (18:20→22:32)
[2019-08-21] MEDS: SIMVASTATIN 40 MG TABLET PO SCH (22:30)
[2019-08-21] MEDS: AMITRIPTYLINE 25 MG TABLET PO SCH (22:31)
[2019-08-21] MEDS: LATANOPROST 0.005% OPH SOLN 2.5 ML BOTTLE BOTH EYES SCH (22:31)
[2019-08-22] MEDS: HEPARIN DRIP 25,000 UNITS/500 ML PREMIX IV SCH ×2 (00:30→07:54)
[2019-08-22 01:07] LABS: INR 2.8
[2019-08-22 01:09] LABS: PT Patient Result 29.7 SECS (9.6-12.2); Partial Thromboplastin Time 50.3 SECS (20.8-36.0)
[2019-08-22 06:00] LABS: Basophils % 0.4 % (0.0-0.8); Eosinophils # 0.1 10*3/uL (0.0-0.87); Eosinophils % 1.2 % (0.00-10.9); Hematocrit 27.8 VOL% (35.7-47.0); Hemoglobin 8.5 GM/DL (12.0-16.0); Immature Granulocytes % 0.2 %; Immature Granulocytes Absolute 0.01 #; Lymphocytes # 0.7 10*3/uL (1.4-4.0); Lymphocytes % 13.9 % (21.3-54.2); Mean Corpuscular HGB Conc 30.6 GM/DL (32-36); Mean Corpuscular Volume 93.6 FL (87-102); Mean Platelet Volume 11.7 FL (9.6-12.0); Monocytes % 8.3 % (1.7-12.7); Platelet Count 150 T/CUMM (130-400); Red Blood Count 2.97 MC/CUMM (3.8-5.5); Red Cell Distribution Width 16.5 % (9.3-17.3); White Blood Count 4.8 T/CUMM (4-12)
[2019-08-22 06:13] LABS: INR 2.9
[2019-08-22 06:42] LABS: Calcium 8.4 MG/DL (8.5-10.1); Osmolality,Calculated 282.8 MOS/KG (273-304)
[2019-08-22 06:43] LABS: PT Patient Result 31.5 SECS (9.6-12.2)
[2019-08-22] MEDS ORDERED: HEPARIN LOCK FLUSH 500 UNIT/5 ML SYRINGE IV ONE (09:26)
[2019-08-22] MEDS ORDERED: hydrALAZINE 25 MG TABLET ONE (09:48)
[2019-08-22] MEDS: CALCIUM CARBONATE CHEW 500 MG TABLET PO SCH (09:52)
[2019-08-22] MEDS: POTASSIUM CHLORIDE 20 MEQ TABLET PO SCH (09:53)
[2019-08-22] MEDS: carvediloL 25 MG TABLET PO SCH (09:53)
[2019-08-22] MEDS: PANTOPRAZOLE 40 MG TABLET PO SCH (09:53)
[2019-08-22] MEDS: ISOSORBIDE DINITRATE 20 MG TABLET PO SCH (09:53)
[2019-08-22] MEDS: FUROSEMIDE 80 MG TABLET PO SCH (09:53)
[2019-08-22] MEDS: ASPIRIN EC 81 MG TABLET PO SCH (09:53)
[2019-08-22] MEDS: METOCLOPRAMIDE 10 MG/10 ML UDCUP PO SCH ×2 (09:54→12:30)
[2019-08-22] MEDS: LACTATED RINGERS 1,000 ML IV SCH (09:54)
[2019-08-22 12:32] VITALS: BP 132/59
== END 2019-08-22 13:50 | disposition home or self-care (01) | DRG 377 ==
LOC: EDUNIT# → EDBD → N.ED 17:47 → N.EDINP 20:19 → SUATTDRO 20:19 → N.5E 21:00
PROVIDERS: ADMIT Internal Medicine; ATTEND Internal Medicine

== ENCOUNTER 2019-10-29 13:36 | Inpatient (IN) ==
[2019-10-29 14:26] LABS: Basophils % 0.2 % (0.0-0.8); Eosinophils # 0.1 10*3/uL (0.0-0.87); Hematocrit 23.2 VOL% (35.7-47.0); Immature Granulocytes % 0.6 %; Immature Granulocytes Absolute 0.04 #; Lymphocytes # 0.6 10*3/uL (1.4-4.0); Mean Corpuscular HGB Conc 30.2 GM/DL (32-36); Mean Corpuscular Volume 94.3 FL (87-102); Mean Platelet Volume 11.7 FL (9.6-12.0); Neutrophils % 81.2 % (38.7-73.9); Platelet Count 191 T/CUMM (130-400); Red Blood Count 2.46 MC/CUMM (3.8-5.5); Red Cell Distribution Width 17.4 % (9.3-17.3); White Blood Count 6.3 T/CUMM (4-12)
[2019-10-29 14:53] LABS: Troponin I < 0.015 NG/ML (0.00-0.045)
[2019-10-29 14:59] LABS: Albumin 3.4 G/DL (3.4-5.0); Bilirubin,Total 0.5 MG/DL (0.2-1.0); Calcium 8.3 MG/DL (8.5-10.1); Osmolality,Calculated 289.4 MOS/KG (273-304); Total Protein 7.5 G/DL (6.4-8.3)
[2019-10-29 16:15] LABS: INR 2.8
[2019-10-29 16:17] LABS: PT Patient Result 28.2 SECS (9.8-11.9); Partial Thromboplastin Time 50.1 SECS (23.9-33.8)
[2019-10-29] MEDS ORDERED: ACETAMINOPHEN 325 MG TABLET PO PRN (16:45)
[2019-10-29] MEDS ORDERED: GLUCAGON 1 MG VIAL IM PRN (16:45)
[2019-10-29] MEDS ORDERED: DEXTROSE 10% 250 ML BAG IV PRN (16:45)
[2019-10-29] MEDS ORDERED: ONDANSETRON 4 MG/2 ML VIAL IV PRN (16:45)
[2019-10-29] MEDS ORDERED: MAGNESIUM SULF RIDER 4 GM in PREMIX 1 EACH IV PRN (16:47)
[2019-10-29] MEDS ORDERED: FUROSEMIDE 40 MG/4 ML VIAL IV ONE (17:13)
[2019-10-29] MEDS ORDERED: SODIUM CHLORIDE 0.9% 1,000 ML IV PRN (17:49)
[2019-10-29 17:52] LABS: Ferritin 159.4 ng/ml (8-252)
[2019-10-29 18:07] LABS: Folate 15.3 NG/ML (5.4-24.0)
[2019-10-29 19:50] LABS: Apearance,Urine CLEAR (Clear); Bacteria,Urine Many /HPF (Few); Bilirubin,Urine Negative (Negative); Blood, Urine Small mg/dL (Negative); Glucose,Urine (UA) Negative (Negative); Ketones,Urine Negative (Negative); Nitrite,Urine Negative (Negative); Protein,Urine Negative; RBC,Urine 1 /HPF (0-4); Squamous Epithelial Cell,Urine Occasional /HPF (0-10); Urine Color Yellow (Yellow); Urine Specific Gravity 1.009 (1.001-1.035); Urine Urobilinogen < 2.0 EU/DL (0.2-1.0); WBC,Urine 7 /HPF (0-6)
[2019-10-29] MEDS: POTASSIUM CHLORIDE 20 MEQ TABLET PO PRN (22:35)
[2019-10-30] MEDS: INSULIN LISPRO 100 UNIT/ML SUBCUT SCH ×5 (00:14→20:53)
[2019-10-30] MEDS: ALBUTEROL INHALER 8 GM INH SCH ×4 (00:50→20:53)
[2019-10-30] MEDS: POTASSIUM CHLORIDE 20 MEQ TABLET PO PRN ×6 (00:50→15:00)
[2019-10-30 01:32] LABS: Troponin I < 0.015 NG/ML (0.00-0.045)
[2019-10-30] MEDS: hydrALAZINE 20 MG/1 ML VIAL IV PRN ×7 (02:03→13:05)
[2019-10-30] MEDS ORDERED: FUROSEMIDE 40 MG/4 ML VIAL IV ONE (02:33)
[2019-10-30] MEDS ORDERED: NITROGLYCERIN SL 0.4 MG TABLET SL PRN (04:16)
[2019-10-30] MEDS ORDERED: NICOTINE 21 MG/24 HR PATCH TRANSDERM PRN (04:16)
[2019-10-30] MEDS ORDERED: niCARdipine INJ 50 MG in SODIUM CHLORIDE 0.9% 230 ML IV PRN (04:27)
[2019-10-30 06:11] LABS: Basophils % 0.2 % (0.0-0.8); Eosinophils % 0.2 % (0.00-10.9); Hematocrit 29.1 VOL% (35.7-47.0); Hemoglobin 9.2 GM/DL (12.0-16.0); Immature Granulocytes % 0.7 %; Immature Granulocytes Absolute 0.13 #; Lymphocytes # 0.5 10*3/uL (1.4-4.0); Lymphocytes % 2.6 % (21.3-54.2); Mean Corpuscular HGB Conc 31.6 GM/DL (32-36); Mean Corpuscular Volume 91.8 FL (87-102); Mean Platelet Volume 12.2 FL (9.6-12.0); Monocytes % 3.5 % (1.7-12.7); Neutrophils % 92.8 % (38.7-73.9); Platelet Count 245 T/CUMM (130-400); Red Blood Count 3.17 MC/CUMM (3.8-5.5); White Blood Count 17.9 T/CUMM (4-12)
[2019-10-30 06:20] LABS: INR 2.9; PT Patient Result 29.3 SECS (9.8-11.9)
[2019-10-30] MEDS: MAGNESIUM SULF RIDER 2 GM in PREMIX 1 EACH IV PRN ×2 (06:21→13:55)
[2019-10-30] MEDS: cefTRIAXone 1,000 MG in SYRINGE 1 EACH IV SCH (06:22)
[2019-10-30 07:16] LABS: Apearance,Urine CLEAR (Clear); Bacteria,Urine Many /HPF (Few); Bilirubin,Urine Negative (Negative); Blood, Urine Small mg/dL (Negative); Glucose,Urine (UA) Negative (Negative); Ketones,Urine Negative (Negative); Nitrite,Urine Positive (Negative); Protein,Urine Negative; RBC,Urine 4 /HPF (0-4); Urine Color Yellow (Yellow); Urine Specific Gravity 1.006 (1.001-1.035); Urine Urobilinogen < 2.0 EU/DL (0.2-1.0); WBC,Urine 5 /HPF (0-6)
[2019-10-30 07:24] LABS: Calcium 8.5 MG/DL (8.5-10.1); Osmolality,Calculated 288.8 MOS/KG (273-304)
[2019-10-30] MEDS: PANTOPRAZOLE 40 MG TABLET PO SCH ×2 (08:00→20:55)
[2019-10-30] MEDS: carvediloL 25 MG TABLET PO SCH ×2 (08:27→17:54)
[2019-10-30] MEDS: FUROSEMIDE 40 MG/4 ML VIAL IV SCH ×2 (08:28→17:53)
[2019-10-30] MEDS: sitaGLIPtin 25 MG TABLET PO SCH (08:28)
[2019-10-30] MEDS: chlordiazePOXIDE 10 MG CAPSULE PO SCH ×3 (08:28→20:54)
[2019-10-30] MEDS: hydrALAZINE 25 MG TABLET PO SCH ×2 (08:28→20:53)
[2019-10-30] MEDS: CALCIUM CARBONATE CHEW 500 MG TABLET PO SCH ×2 (08:28→17:54)
[2019-10-30] MEDS: ISOSORBIDE DINITRATE 20 MG TABLET PO SCH ×2 (08:28→20:53)
[2019-10-30] MEDS: ASPIRIN EC 81 MG TABLET PO SCH (08:28)
[2019-10-30] MEDS ORDERED: AZITHROMYCIN 250 MG TABLET PO ONE (08:31)
[2019-10-30] MEDS: CHOLECALCIFEROL 1,000 UNIT TABLET PO SCH (08:35)
[2019-10-30] MEDS: METOCLOPRAMIDE 10 MG/10 ML UDCUP PO SCH ×4 (08:35→20:55)
[2019-10-30] MEDS ORDERED: PANTOPRAZOLE 40 MG TABLET PO SCH (09:00)
[2019-10-30 11:08] LABS: Lymphocytes 3 % (20-55); Schistocytes Slight; Segmented Neutrophils 95 % (50-85); Total Cells Counted 100
[2019-10-30 11:09] LABS: Hypochromasia 3+; Microcytosis Slight; Platelet Estimate Normal; Stomatocytes Few; Tear Drop Cells Slight
[2019-10-30] MEDS ORDERED: NIFEdipine 10 MG CAPSULE PO PRN (13:31)
[2019-10-30] MEDS: ZINC SULFATE 220 MG CAPSULE PO SCH (13:54)
[2019-10-30] MEDS: WARFARIN 5 MG TABLET PO SCH (17:54)
[2019-10-30] MEDS: AMITRIPTYLINE 25 MG TABLET PO SCH (20:53)
[2019-10-30] MEDS: LATANOPROST 0.005% OPH SOLN 2.5 ML BOTTLE BOTH EYES SCH ×2 (20:58→23:59)
[2019-10-30] MEDS: SIMVASTATIN 40 MG TABLET PO SCH (20:58)
[2019-10-31] MEDS: ALBUTEROL INHALER 8 GM INH SCH ×4 (00:47→22:19)
[2019-10-31 04:16] LABS: Basophils % 0.4 % (0.0-0.8); Eosinophils # 0.1 10*3/uL (0.0-0.87); Eosinophils % 1.3 % (0.00-10.9); Hematocrit 25.8 VOL% (35.7-47.0); Hemoglobin 7.8 GM/DL (12.0-16.0); Immature Granulocytes % 0.2 %; Immature Granulocytes Absolute 0.02 #; Lymphocytes # 0.7 10*3/uL (1.4-4.0); Lymphocytes % 7.9 % (21.3-54.2); Mean Corpuscular HGB Conc 30.2 GM/DL (32-36); Mean Corpuscular Volume 94.9 FL (87-102); Mean Platelet Volume 11.3 FL (9.6-12.0); Monocytes % 7.7 % (1.7-12.7); Neutrophils % 82.5 % (38.7-73.9); Platelet Count 210 T/CUMM (130-400); Red Blood Count 2.72 MC/CUMM (3.8-5.5); Red Cell Distribution Width 17.4 % (9.3-17.3); White Blood Count 8.3 T/CUMM (4-12)
[2019-10-31 04:23] LABS: Calcium 9.3 MG/DL (8.5-10.1); Osmolality,Calculated 283.8 MOS/KG (273-304)
[2019-10-31 05:16] LABS: INR 2.9; PT Patient Result 29.7 SECS (9.8-11.9)
[2019-10-31] MEDS: cefTRIAXone 1,000 MG in SYRINGE 1 EACH IV SCH (05:30)
[2019-10-31] MEDS: POTASSIUM CHLORIDE 20 MEQ TABLET PO PRN (06:03)
[2019-10-31] MEDS: chlordiazePOXIDE 10 MG CAPSULE PO SCH ×3 (08:30→22:19)
[2019-10-31] MEDS: ISOSORBIDE DINITRATE 20 MG TABLET PO SCH ×2 (08:30→22:19)
[2019-10-31] MEDS: CHOLECALCIFEROL 1,000 UNIT TABLET PO SCH (08:30)
[2019-10-31] MEDS: INSULIN LISPRO 100 UNIT/ML SUBCUT SCH ×4 (08:30→22:19)
[2019-10-31] MEDS: carvediloL 25 MG TABLET PO SCH ×2 (08:30→16:08)
[2019-10-31] MEDS: METOCLOPRAMIDE 10 MG/10 ML UDCUP PO SCH ×4 (08:30→22:20)
[2019-10-31] MEDS: sitaGLIPtin 25 MG TABLET PO SCH (08:30)
[2019-10-31] MEDS: ASPIRIN EC 81 MG TABLET PO SCH (08:30)
[2019-10-31] MEDS: FUROSEMIDE 40 MG/4 ML VIAL IV SCH ×2 (08:30→15:51)
[2019-10-31] MEDS: PANTOPRAZOLE 40 MG TABLET PO SCH ×2 (08:30→22:19)
[2019-10-31] MEDS: AZITHROMYCIN 250 MG TABLET PO SCH (08:30)
[2019-10-31] MEDS: CALCIUM CARBONATE CHEW 500 MG TABLET PO SCH ×2 (08:30→16:08)
[2019-10-31] MEDS: hydrALAZINE 25 MG TABLET PO SCH ×2 (08:30→22:19)
[2019-10-31] MEDS: hydrALAZINE 20 MG/1 ML VIAL IV PRN (12:20)
[2019-10-31] MEDS ORDERED: SODIUM CHLORIDE 0.9% 1,000 ML IV PRN (13:28)
[2019-10-31] MEDS: WARFARIN 5 MG TABLET PO SCH (17:33)
[2019-10-31 19:32] LABS: Hematocrit 26.9 VOL% (35.7-47.0); Hemoglobin 8.3 GM/DL (12.0-16.0)
[2019-10-31] MEDS: AMITRIPTYLINE 25 MG TABLET PO SCH (22:19)
[2019-10-31] MEDS: MOMETASONE 220 MCG/PUFF INHALER 14 DOSE INH SCH (22:19)
[2019-10-31] MEDS: LATANOPROST 0.005% OPH SOLN 2.5 ML BOTTLE BOTH EYES SCH (22:20)
[2019-10-31] MEDS: SIMVASTATIN 40 MG TABLET PO SCH (22:22)
[2019-11-01 05:11] LABS: Basophils % 0.3 % (0.0-0.8); Eosinophils # 0.2 10*3/uL (0.0-0.87); Eosinophils % 2.9 % (0.00-10.9); Hematocrit 27.5 VOL% (35.7-47.0); Hemoglobin 8.2 GM/DL (12.0-16.0); Immature Granulocytes % 0.3 %; Immature Granulocytes Absolute 0.02 #; Lymphocytes # 0.8 10*3/uL (1.4-4.0); Lymphocytes % 12.8 % (21.3-54.2); Mean Corpuscular HGB Conc 29.8 GM/DL (32-36); Mean Corpuscular Volume 96.8 FL (87-102); Mean Platelet Volume 11.8 FL (9.6-12.0); Monocytes % 8.4 % (1.7-12.7); Neutrophils % 75.3 % (38.7-73.9); Platelet Count 214 T/CUMM (130-400); Red Blood Count 2.84 MC/CUMM (3.8-5.5); Red Cell Distribution Width 17.1 % (9.3-17.3); White Blood Count 6.2 T/CUMM (4-12)
[2019-11-01 05:26] LABS: Calcium 8.8 MG/DL (8.5-10.1); Osmolality,Calculated 287.7 MOS/KG (273-304)
[2019-11-01] MEDS: ALBUTEROL INHALER 8 GM INH SCH ×4 (07:05→18:38)
[2019-11-01] MEDS: cefTRIAXone 1,000 MG in SYRINGE 1 EACH IV SCH (07:05)
[2019-11-01] MEDS: PANTOPRAZOLE 40 MG TABLET PO SCH ×2 (07:55→21:42)
[2019-11-01] MEDS: carvediloL 25 MG TABLET PO SCH ×2 (07:55→17:27)
[2019-11-01] MEDS: sitaGLIPtin 25 MG TABLET PO SCH (07:55)
[2019-11-01] MEDS: AZITHROMYCIN 250 MG TABLET PO SCH (07:55)
[2019-11-01] MEDS: CALCIUM CARBONATE CHEW 500 MG TABLET PO SCH ×2 (07:55→17:27)
[2019-11-01] MEDS: ZINC SULFATE 220 MG CAPSULE PO SCH (07:55)
[2019-11-01] MEDS: ISOSORBIDE DINITRATE 20 MG TABLET PO SCH ×2 (07:55→21:42)
[2019-11-01] MEDS: METOCLOPRAMIDE 10 MG/10 ML UDCUP PO SCH ×4 (07:55→21:42)
[2019-11-01] MEDS: hydrALAZINE 25 MG TABLET PO SCH ×2 (07:55→21:42)
[2019-11-01] MEDS: chlordiazePOXIDE 10 MG CAPSULE PO SCH ×3 (07:55→21:42)
[2019-11-01] MEDS: FUROSEMIDE 40 MG/4 ML VIAL IV SCH ×2 (07:55→17:27)
[2019-11-01] MEDS: CHOLECALCIFEROL 1,000 UNIT TABLET PO SCH (07:55)
[2019-11-01] MEDS: ASPIRIN EC 81 MG TABLET PO SCH (07:55)
[2019-11-01] MEDS: INSULIN LISPRO 100 UNIT/ML SUBCUT SCH ×4 (07:55→21:42)
[2019-11-01] MEDS: hydrALAZINE 20 MG/1 ML VIAL IV PRN ×2 (16:12→17:31)
[2019-11-01] MEDS: WARFARIN 5 MG TABLET PO SCH (17:27)
[2019-11-01] MEDS: MOMETASONE 220 MCG/PUFF INHALER 14 DOSE INH SCH (21:42)
[2019-11-01] MEDS: LATANOPROST 0.005% OPH SOLN 2.5 ML BOTTLE BOTH EYES SCH (21:42)
[2019-11-01] MEDS: SIMVASTATIN 40 MG TABLET PO SCH (21:42)
[2019-11-01] MEDS: AMITRIPTYLINE 25 MG TABLET PO SCH (21:42)
[2019-11-02] MEDS: ALBUTEROL INHALER 8 GM INH SCH ×4 (00:16→21:26)
[2019-11-02 03:36] LABS: Calcium 9.1 MG/DL (8.5-10.1)
[2019-11-02] MEDS: cefTRIAXone 1,000 MG in SYRINGE 1 EACH IV SCH (05:30)
[2019-11-02] MEDS ORDERED: IRON SUCROSE 300 MG in SODIUM CHLORIDE 0.9% 100 ML IV ONE (09:00)
[2019-11-02] MEDS: FUROSEMIDE 40 MG/4 ML VIAL IV SCH ×2 (09:05→16:09)
[2019-11-02] MEDS: sitaGLIPtin 25 MG TABLET PO SCH (09:06)
[2019-11-02] MEDS: CALCIUM CARBONATE CHEW 500 MG TABLET PO SCH ×2 (09:06→16:09)
[2019-11-02] MEDS: chlordiazePOXIDE 10 MG CAPSULE PO SCH (09:06)
[2019-11-02] MEDS: PANTOPRAZOLE 40 MG TABLET PO SCH ×2 (09:06→21:03)
[2019-11-02] MEDS: CHOLECALCIFEROL 1,000 UNIT TABLET PO SCH (09:06)
[2019-11-02] MEDS: carvediloL 25 MG TABLET PO SCH ×2 (09:06→16:09)
[2019-11-02] MEDS: METOCLOPRAMIDE 10 MG/10 ML UDCUP PO SCH ×4 (09:06→21:03)
[2019-11-02] MEDS: AZITHROMYCIN 250 MG TABLET PO SCH (09:06)
[2019-11-02] MEDS: ISOSORBIDE DINITRATE 20 MG TABLET PO SCH ×2 (09:06→21:04)
[2019-11-02] MEDS: ASPIRIN EC 81 MG TABLET PO SCH (09:07)
[2019-11-02] MEDS: INSULIN LISPRO 100 UNIT/ML SUBCUT SCH ×4 (09:07→21:02)
[2019-11-02] MEDS: WARFARIN 5 MG TABLET PO SCH ×2 (16:09→17:30)
[2019-11-02] MEDS: AMITRIPTYLINE 25 MG TABLET PO SCH (21:03)
[2019-11-02] MEDS: SIMVASTATIN 40 MG TABLET PO SCH (21:04)
[2019-11-02] MEDS: LATANOPROST 0.005% OPH SOLN 2.5 ML BOTTLE BOTH EYES SCH (21:25)
[2019-11-02] MEDS: MOMETASONE 220 MCG/PUFF INHALER 14 DOSE INH SCH (21:26)
[2019-11-03] MEDS: ALBUTEROL INHALER 8 GM INH SCH ×2 (00:49→08:30)
[2019-11-03 05:20] LABS: Basophils % 0.3 % (0.0-0.8); Eosinophils # 0.2 10*3/uL (0.0-0.87); Eosinophils % 3.2 % (0.00-10.9); Hematocrit 27.6 VOL% (35.7-47.0); Hemoglobin 8.1 GM/DL (12.0-16.0); Immature Granulocytes % 0.5 %; Immature Granulocytes Absolute 0.03 #; Lymphocytes % 14.8 % (21.3-54.2); Mean Corpuscular HGB Conc 29.3 GM/DL (32-36); Mean Corpuscular Volume 96.8 FL (87-102); Mean Platelet Volume 11.8 FL (9.6-12.0); Monocytes % 8.3 % (1.7-12.7); Neutrophils % 72.9 % (38.7-73.9); Platelet Count 236 T/CUMM (130-400); Red Blood Count 2.85 MC/CUMM (3.8-5.5); Red Cell Distribution Width 16.7 % (9.3-17.3); White Blood Count 6.5 T/CUMM (4-12)
[2019-11-03 05:32] LABS: INR 2.9; PT Patient Result 29.3 SECS (9.8-11.9)
[2019-11-03 05:54] LABS: Albumin 3.3 G/DL (3.4-5.0); Bilirubin,Total 0.7 MG/DL (0.2-1.0); Osmolality,Calculated 292.5 MOS/KG (273-304); Total Protein 7.5 G/DL (6.4-8.3)
[2019-11-03] MEDS ORDERED: IRON SUCROSE 300 MG in SODIUM CHLORIDE 0.9% 100 ML IV ONE (07:30)
[2019-11-03] MEDS: PANTOPRAZOLE 40 MG TABLET PO SCH (08:30)
[2019-11-03] MEDS: AZITHROMYCIN 250 MG TABLET PO SCH (08:30)
[2019-11-03] MEDS: sitaGLIPtin 25 MG TABLET PO SCH (08:30)
[2019-11-03] MEDS: ASPIRIN EC 81 MG TABLET PO SCH (08:30)
[2019-11-03] MEDS: METOCLOPRAMIDE 10 MG/10 ML UDCUP PO SCH ×2 (08:30→14:52)
[2019-11-03] MEDS: CALCIUM CARBONATE CHEW 500 MG TABLET PO SCH (08:30)
[2019-11-03] MEDS: FUROSEMIDE 40 MG/4 ML VIAL IV SCH (08:30)
[2019-11-03] MEDS: CHOLECALCIFEROL 1,000 UNIT TABLET PO SCH (08:30)
[2019-11-03] MEDS: ISOSORBIDE DINITRATE 20 MG TABLET PO SCH (08:30)
[2019-11-03] MEDS: carvediloL 25 MG TABLET PO SCH (08:30)
[2019-11-03] MEDS: POTASSIUM CHLORIDE 20 MEQ TABLET PO PRN ×2 (08:30→08:32)
[2019-11-03] MEDS: cefTRIAXone 1,000 MG in SYRINGE 1 EACH IV SCH (09:48)
[2019-11-03] MEDS: INSULIN LISPRO 100 UNIT/ML SUBCUT SCH ×2 (09:50→14:52)
[2019-11-03 10:37] VITALS: BP 153/59
== END 2019-11-03 12:16 | disposition home health service (06) | DRG 291 ==
LOC: EDUNIT# → EDBD → N.ED 13:36 → SUATTDRO 16:44 → N.EDINP 16:44 → N.2W 18:00 → N.ICU 10-30 04:27 → N.2W 11-01 15:08
PROVIDERS: ADMIT Internal Medicine; ATTEND Internal Medicine

== ENCOUNTER 2019-11-04 22:59 | Inpatient (IN) ==
[2019-11-04 23:46] LABS: Allen Test Positive; Pt O2 Delivery Device CPAP
[2019-11-04 23:47] LABS: ABG Base Excess 9.7 MMOL/L (-2.5-2.5); ABG HCO3 36.8 MMOL/L (20-26); ABG Oxygen Saturation 99.1 % (95-100); ABG PCO2 68.5 MM HG (35-48); ABG PH 7.348 (7.35-7.45); ABG PO2 198.1 MM HG (80-95); ABG TCO2 38.9 MMOL/L (23-27)
[2019-11-05 00:08] LABS: Basophils % 0.1 % (0.0-0.8); Eosinophils % 0.1 % (0.00-10.9); Hematocrit 25.7 VOL% (35.7-47.0); Hemoglobin 7.7 GM/DL (12.0-16.0); Immature Granulocytes % 0.4 %; Immature Granulocytes Absolute 0.04 #; Lymphocytes # 0.8 10*3/uL (1.4-4.0); Lymphocytes % 8.2 % (21.3-54.2); Mean Corpuscular Volume 96.3 FL (87-102); Mean Platelet Volume 11.5 FL (9.6-12.0); Monocytes % 5.5 % (1.7-12.7); Neutrophils % 85.7 % (38.7-73.9); Platelet Count 223 T/CUMM (130-400); Red Blood Count 2.67 MC/CUMM (3.8-5.5); Red Cell Distribution Width 16.2 % (9.3-17.3); White Blood Count 9.9 T/CUMM (4-12)
[2019-11-05] MEDS ORDERED: ALBUTEROL/IPRATROPIUM 3 ML NEB RESP TX STA (00:20)
[2019-11-05] MEDS ORDERED: methylPREDNISolone SOD SUC 125 MG/2 ML VIAL IV STA (00:21)
[2019-11-05 00:33] LABS: Alanine Aminotransferase 23 U/L (13-56); Albumin 3.3 G/DL (3.4-5.0); Alkaline Phosphatase 83 U/L (45-117); Aspartate Amino Transferase 16 U/L (0-37); Bilirubin,Total < 0.39 MG/DL (0.2-1.0); Blood Urea Nitrogen 46 MG/DL (7-18); Calcium 9.1 MG/DL (8.5-10.1); Glucose 174 MG/DL (74-106); Osmolality,Calculated 290.7 MOS/KG (273-304); Total Protein 7.5 G/DL (6.4-8.3)
[2019-11-05 00:43] LABS: Estimated Glom Filtration Rate 0 ML/MIN
[2019-11-05] MEDS ORDERED: ASPIRIN CHEW 81 MG TABLET PO STA (00:56)
[2019-11-05] MEDS ORDERED: ACETAMINOPHEN 325 MG TABLET PO PRN (01:57)
[2019-11-05] MEDS ORDERED: GLUCAGON 1 MG VIAL IM PRN (01:57)
[2019-11-05] MEDS ORDERED: ONDANSETRON 4 MG/2 ML VIAL IV PRN (01:57)
[2019-11-05] MEDS ORDERED: DEXTROSE 10% 250 ML BAG IV PRN (02:03)
[2019-11-05] MEDS ORDERED: DEXTROSE 50% 25 GM/50 ML VIAL IV PRN (05:11)
[2019-11-05] MEDS ORDERED: methylPREDNISolone SOD SUC 40 MG/1 ML VIAL IV SCH (05:30)
[2019-11-05] MEDS ORDERED: NICOTINE 21 MG/24 HR PATCH TRANSDERM PRN (06:47)
[2019-11-05] MEDS: ALBUTEROL/IPRATROPIUM 3 ML NEB RESP TX SCH ×3 (07:27→19:36)
[2019-11-05] MEDS: INSULIN REGULAR 100 UNIT/ML SUBCUT SCH ×4 (09:13→21:17)
[2019-11-05] MEDS: POTASSIUM CHLORIDE 20 MEQ TABLET PO SCH (09:15)
[2019-11-05] MEDS: carvediloL 25 MG TABLET PO SCH ×2 (09:15→21:16)
[2019-11-05] MEDS: FUROSEMIDE 40 MG/4 ML VIAL IV SCH ×2 (09:15→16:43)
[2019-11-05] MEDS ORDERED: NITROGLYCERIN SL 0.4 MG TABLET SL PRN (14:04)
[2019-11-05] MEDS: ASPIRIN EC 81 MG TABLET PO SCH (14:54)
[2019-11-05] MEDS: ISOSORBIDE DINITRATE 20 MG TABLET PO SCH ×2 (14:54→21:19)
[2019-11-05] MEDS: sitaGLIPtin 25 MG TABLET PO SCH (14:55)
[2019-11-05] MEDS: WARFARIN 5 MG TABLET PO SCH (17:01)
[2019-11-05] MEDS: PANTOPRAZOLE 40 MG TABLET PO SCH (21:17)
[2019-11-05] MEDS: SIMVASTATIN 40 MG TABLET PO SCH (21:18)
[2019-11-05] MEDS: LATANOPROST 0.005% OPH SOLN 2.5 ML BOTTLE BOTH EYES SCH (21:30)
[2019-11-06] MEDS: ALBUTEROL/IPRATROPIUM 3 ML NEB RESP TX SCH ×4 (00:30→19:47)
[2019-11-06 06:17] LABS: Basophils % 0.2 % (0.0-0.8); Eosinophils % 0.2 % (0.00-10.9); Hematocrit 23.9 VOL% (35.7-47.0); Hemoglobin 7.2 GM/DL (12.0-16.0); Immature Granulocytes % 0.4 %; Immature Granulocytes Absolute 0.02 #; Lymphocytes # 0.9 10*3/uL (1.4-4.0); Lymphocytes % 16.1 % (21.3-54.2); Mean Corpuscular HGB Conc 30.1 GM/DL (32-36); Mean Platelet Volume 11.2 FL (9.6-12.0); Monocytes % 12.8 % (1.7-12.7); Neutrophils % 70.3 % (38.7-73.9); Platelet Count 212 T/CUMM (130-400); Red Blood Count 2.49 MC/CUMM (3.8-5.5); Red Cell Distribution Width 16.4 % (9.3-17.3); White Blood Count 5.5 T/CUMM (4-12)
[2019-11-06 06:22] LABS: INR 2.4; PT Patient Result 25.1 SECS (9.8-11.9)
[2019-11-06 06:55] LABS: Calcium 8.8 MG/DL (8.5-10.1); Osmolality,Calculated 293.3 MOS/KG (273-304)
[2019-11-06] MEDS: ISOSORBIDE DINITRATE 20 MG TABLET PO SCH ×2 (09:05→21:33)
[2019-11-06] MEDS: INSULIN REGULAR 100 UNIT/ML SUBCUT SCH ×4 (09:05→21:34)
[2019-11-06] MEDS: FUROSEMIDE 40 MG/4 ML VIAL IV SCH ×2 (09:06→16:10)
[2019-11-06] MEDS: POTASSIUM CHLORIDE 20 MEQ TABLET PO SCH (09:06)
[2019-11-06] MEDS: ASPIRIN EC 81 MG TABLET PO SCH (09:06)
[2019-11-06] MEDS: sitaGLIPtin 25 MG TABLET PO SCH (09:06)
[2019-11-06] MEDS: carvediloL 25 MG TABLET PO SCH ×2 (09:06→21:32)
[2019-11-06] MEDS: PANTOPRAZOLE 40 MG TABLET PO SCH ×2 (09:06→21:35)
[2019-11-06] MEDS: WARFARIN 5 MG TABLET PO SCH (17:23)
[2019-11-06] MEDS: SIMVASTATIN 40 MG TABLET PO SCH (21:31)
[2019-11-06] MEDS: LATANOPROST 0.005% OPH SOLN 2.5 ML BOTTLE BOTH EYES SCH (21:35)
[2019-11-07] MEDS: ALBUTEROL/IPRATROPIUM 3 ML NEB RESP TX SCH ×2 (01:45→07:20)
[2019-11-07 06:45] LABS: INR 2.3; PT Patient Result 23.2 SECS (9.8-11.9)
[2019-11-07] MEDS: INSULIN REGULAR 100 UNIT/ML SUBCUT SCH (08:20)
[2019-11-07] MEDS: PANTOPRAZOLE 40 MG TABLET PO SCH (09:00)
[2019-11-07] MEDS: sitaGLIPtin 25 MG TABLET PO SCH (09:00)
[2019-11-07] MEDS: POTASSIUM CHLORIDE 20 MEQ TABLET PO SCH (09:01)
[2019-11-07] MEDS: ASPIRIN EC 81 MG TABLET PO SCH (09:01)
[2019-11-07] MEDS: ISOSORBIDE DINITRATE 20 MG TABLET PO SCH (09:01)
[2019-11-07] MEDS: carvediloL 25 MG TABLET PO SCH (09:01)
[2019-11-07] MEDS: FUROSEMIDE 40 MG/4 ML VIAL IV SCH (09:01)
[2019-11-07 11:52] VITALS: BP 139/68
== END 2019-11-07 13:26 | disposition home health service (06) | DRG 291 ==
LOC: EDBD → EDUNIT# → N.EDINP 22:59 → N.ED 22:59 → N.TELES 11-05 02:25 → SUATTDRO 11-05 14:25
PROVIDERS: ADMIT Internal Medicine Geriatric Medicine; ATTEND Internal Medicine

== ENCOUNTER 2021-03-09 14:54 | Inpatient (IN) ==
[2021-03-09 17:12] LABS: Basophils % 0.3 % (0.0-0.8); Eosinophils # 0.1 10*3/uL (0.0-0.87); Eosinophils % 1.6 % (0.00-10.9); Hematocrit 28.6 VOL% (35.7-47.0); Hemoglobin 8.9 GM/DL (12.0-16.0); Immature Granulocytes % 0.5 %; Immature Granulocytes Absolute 0.03 #; Lymphocytes # 0.8 10*3/uL (1.4-4.0); Lymphocytes % 13.2 % (21.3-54.2); Mean Corpuscular HGB Conc 31.1 GM/DL (32-36); Mean Corpuscular Volume 92.3 FL (87-102); Mean Platelet Volume 13.2 FL (9.6-12.0); Monocytes % 6.4 % (1.7-12.7); Platelet Count 162 T/CUMM (130-400); Red Cell Distribution Width 17.7 % (9.3-17.3); White Blood Count 6.3 T/CUMM (4-12)
[2021-03-09 17:26] LABS: INR 1.8; PT Patient Result 19.1 SECS (10.5-12.0)
[2021-03-09 17:46] LABS: Alanine Aminotransferase 23 U/L (13-56); Albumin 3.5 G/DL (3.4-5.0); Alkaline Phosphatase 115 U/L (45-117); Aspartate Amino Transferase 21 U/L (0-37); Bilirubin,Total < 0.39 MG/DL (0.20-1.00); Blood Urea Nitrogen 45 MG/DL (7-18); Carbon Dioxide 29 MMOL/L (21-32); Estimated Glom Filtration Rate 20 ML/MIN; Glucose 105 MG/DL (74-106); Osmolality,Calculated 294.1 MOS/KG (273-304); Potassium 4.1 MMOL/L (3.5-5.1); Sodium 142 MMOL/L (136-145)
[2021-03-09] MEDS ORDERED: DEXTROSE 50% 25 GM/50 ML VIAL IV PRN (18:58)
[2021-03-09] MEDS ORDERED: DOCUSATE SODIUM 100 MG CAPSULE PO PRN (18:58)
[2021-03-09] MEDS ORDERED: hydrALAZINE 20 MG/1 ML VIAL IV PRN (18:58)
[2021-03-09] MEDS ORDERED: guaiFENesin/DM ER 600-30 MG TABLET PO PRN (18:58)
[2021-03-09] MEDS ORDERED: ONDANSETRON 4 MG/2 ML VIAL IV PRN (18:58)
[2021-03-09] MEDS ORDERED: GLUCAGON 1 MG VIAL IM PRN (18:58)
[2021-03-09] MEDS ORDERED: PHYTONADIONE 10 MG/1 ML AMP SUBCUT STA (18:58)
[2021-03-09] MEDS ORDERED: NICOTINE 21 MG/24 HR PATCH TRANSDERM PRN (18:58)
[2021-03-09] MEDS: INSULIN LISPRO 100 UNIT/ML SUBCUT SCH (20:35)
[2021-03-09] MEDS: SODIUM CHLORIDE 0.9% 1,000 ML IV SCH (20:42)
[2021-03-09] MEDS: SIMVASTATIN 40 MG TABLET PO SCH (21:21)
[2021-03-09] MEDS: ZALEPLON 5 MG CAPSULE PO PRN (21:21)
[2021-03-09] MEDS: PANTOPRAZOLE INJ 200 MG in SODIUM CHLORIDE 0.9% 250 ML IV SCH (21:24)
[2021-03-10 05:37] LABS: Basophils % 0.2 % (0.0-0.8); Eosinophils # 0.1 10*3/uL (0.0-0.87); Eosinophils % 2.9 % (0.00-10.9); Hematocrit 24.8 VOL% (35.7-47.0); Hemoglobin 7.6 GM/DL (12.0-16.0); Immature Granulocytes % 0.4 %; Immature Granulocytes Absolute 0.02 #; Lymphocytes # 0.9 10*3/uL (1.4-4.0); Lymphocytes % 19.1 % (21.3-54.2); Mean Corpuscular HGB Conc 30.6 GM/DL (32-36); Mean Corpuscular Volume 91.9 FL (87-102); Mean Platelet Volume 12.8 FL (9.6-12.0); Monocytes % 10.1 % (1.7-12.7); Neutrophils % 67.3 % (38.7-73.9); Platelet Count 147 T/CUMM (130-400); Red Cell Distribution Width 17.7 % (9.3-17.3); White Blood Count 4.6 T/CUMM (4-12)
[2021-03-10 05:45] LABS: INR 1.8; PT Patient Result 19.3 SECS (10.5-12.0); Partial Thromboplastin Time 38.7 SECS (23.9-33.8)
[2021-03-10 06:12] LABS: Albumin 3.2 G/DL (3.4-5.0); Bilirubin,Total 0.8 MG/DL (0.20-1.00); Calcium 8.2 MG/DL (8.5-10.1); Potassium 3.2 MMOL/L (3.5-5.1)
[2021-03-10] MEDS: INSULIN LISPRO 100 UNIT/ML SUBCUT SCH ×4 (07:30→20:55)
[2021-03-10] MEDS: SODIUM CHLORIDE 0.9% 1,000 ML IV SCH (12:36)
[2021-03-10] MEDS: SIMVASTATIN 40 MG TABLET PO SCH (21:07)
[2021-03-10] MEDS: ZALEPLON 5 MG CAPSULE PO PRN (21:07)
[2021-03-10] MEDS: PANTOPRAZOLE INJ 200 MG in SODIUM CHLORIDE 0.9% 250 ML IV SCH (21:07)
[2021-03-10] MEDS: diphenhydrAMINE CAP 25 MG CAPSULE PO PRN (22:56)
[2021-03-11] MEDS: SODIUM CHLORIDE 0.9% 1,000 ML IV SCH (06:28)
[2021-03-11 07:11] LABS: Basophils % 0.4 % (0.0-0.8); Eosinophils # 0.1 10*3/uL (0.0-0.87); Eosinophils % 2.5 % (0.00-10.9); Hematocrit 24.9 VOL% (35.7-47.0); Hemoglobin 7.6 GM/DL (12.0-16.0); Immature Granulocytes % 0.4 %; Immature Granulocytes Absolute 0.02 #; Lymphocytes # 0.7 10*3/uL (1.4-4.0); Lymphocytes % 14.1 % (21.3-54.2); Mean Corpuscular HGB Conc 30.5 GM/DL (32-36); Mean Corpuscular Volume 93.6 FL (87-102); Mean Platelet Volume 12.3 FL (9.6-12.0); Monocytes % 8.9 % (1.7-12.7); Neutrophils % 73.7 % (38.7-73.9); Platelet Count 148 T/CUMM (130-400); Red Blood Count 2.66 MC/CUMM (3.8-5.5); Red Cell Distribution Width 17.5 % (9.3-17.3); White Blood Count 4.7 T/CUMM (4-12)
[2021-03-11 07:13] LABS: INR 1.7; PT Patient Result 18.6 SECS (10.5-12.0)
[2021-03-11] MEDS: INSULIN LISPRO 100 UNIT/ML SUBCUT SCH ×4 (07:47→21:49)
[2021-03-11 07:56] LABS: Calcium 8.1 MG/DL (8.5-10.1); Potassium 3.4 MMOL/L (3.5-5.1)
[2021-03-11] MEDS: LACTATED RINGERS 1,000 ML IV SCH (08:12)
[2021-03-11] MEDS ORDERED: POTASSIUM CHLORIDE RIDER 10 MEQ/100 ML PREMIX IV PRN (08:54)
[2021-03-11] MEDS ORDERED: propofoL 200 MG/20 ML VIAL IV ONE (10:14)
[2021-03-11] MEDS ORDERED: LIDOCAINE 2% 5 ML VIAL ONE (10:14)
[2021-03-11] MEDS ORDERED: BISACODYL 5 MG TABLET PO ONE (12:00)
[2021-03-11] MEDS ORDERED: NITROGLYCERIN SL 0.4 MG TABLET SL PRN (13:11)
[2021-03-11] MEDS: POTASSIUM CHLORIDE 20 MEQ TABLET PO PRN ×3 (13:52→17:10)
[2021-03-11] MEDS ORDERED: POLYETHYLENE GLYCOL 3350/ELECTROLYTES 4,000 ML BOTTLE PO ONE (18:00)
[2021-03-11] MEDS ORDERED: hydrALAZINE 25 MG TABLET PO SCH (21:00)
[2021-03-11] MEDS: SIMVASTATIN 40 MG TABLET PO SCH (21:29)
[2021-03-11] MEDS: AMITRIPTYLINE 25 MG TABLET PO SCH (21:29)
[2021-03-11] MEDS: ISOSORBIDE MONONITRATE 60 MG TABLET PO SCH (21:29)
[2021-03-11] MEDS: LATANOPROST 0.005% OPH SOLN 2.5 ML BOTTLE BOTH EYES SCH (21:29)
[2021-03-11] MEDS: carvediloL 25 MG TABLET PO SCH (21:29)
[2021-03-12] MEDS: PANTOPRAZOLE INJ 200 MG in SODIUM CHLORIDE 0.9% 250 ML IV SCH (01:08)
[2021-03-12] MEDS: SODIUM CHLORIDE 0.9% 1,000 ML IV SCH ×2 (04:05→14:04)
[2021-03-12] MEDS ORDERED: MAGNESIUM CITRATE 300 ML BOTTLE PO ONE (06:00)
[2021-03-12] MEDS: POTASSIUM CHLORIDE 20 MEQ TABLET PO PRN (06:02)
[2021-03-12 06:57] LABS: Basophils % 0.2 % (0.0-0.8); Eosinophils # 0.2 10*3/uL (0.0-0.87); Eosinophils % 3.3 % (0.00-10.9); Hematocrit 24.5 VOL% (35.7-47.0); Hemoglobin 7.4 GM/DL (12.0-16.0); Immature Granulocytes % 0.4 %; Immature Granulocytes Absolute 0.02 #; Lymphocytes # 0.7 10*3/uL (1.4-4.0); Lymphocytes % 13.6 % (21.3-54.2); Mean Corpuscular HGB Conc 30.2 GM/DL (32-36); Mean Corpuscular Volume 93.5 FL (87-102); Mean Platelet Volume 12.6 FL (9.6-12.0); Monocytes % 9.2 % (1.7-12.7); Neutrophils % 73.3 % (38.7-73.9); Platelet Count 138 T/CUMM (130-400); Red Blood Count 2.62 MC/CUMM (3.8-5.5); Red Cell Distribution Width 17.2 % (9.3-17.3); White Blood Count 4.8 T/CUMM (4-12)
[2021-03-12 07:00] LABS: Calcium 8.2 MG/DL (8.5-10.1); Osmolality,Calculated 280.4 MOS/KG (273-304); Potassium 3.5 MMOL/L (3.5-5.1)
[2021-03-12 07:07] LABS: INR 1.9; PT Patient Result 20.5 SECS (10.5-12.0)
[2021-03-12] MEDS: LACTATED RINGERS 500 ML IV SCH ×2 (07:45→08:04)
[2021-03-12] MEDS: LACTATED RINGERS 1,000 ML IV SCH (07:45)
[2021-03-12] MEDS ORDERED: propofoL 200 MG/20 ML VIAL IV ONE (07:50)
[2021-03-12] MEDS ORDERED: LIDOCAINE 2% 5 ML VIAL ONE (07:50)
[2021-03-12] MEDS ORDERED: SODIUM CHLORIDE 0.9% 1,000 ML IV PRN (08:30)
[2021-03-12] MEDS ORDERED: LACTATED RINGERS 1,000 ML IV SCH (08:30)
[2021-03-12] MEDS: INSULIN LISPRO 100 UNIT/ML SUBCUT SCH ×4 (08:36→21:53)
[2021-03-12] MEDS: ASPIRIN EC 81 MG TABLET PO SCH (08:36)
[2021-03-12] MEDS: hydrALAZINE 25 MG TABLET PO SCH ×2 (08:36→20:55)
[2021-03-12] MEDS: POTASSIUM CHLORIDE 20 MEQ TABLET PO SCH (08:37)
[2021-03-12] MEDS: carvediloL 25 MG TABLET PO SCH ×2 (08:37→20:55)
[2021-03-12] MEDS: amLODIPine 10 MG TABLET PO SCH (08:37)
[2021-03-12] MEDS: ISOSORBIDE MONONITRATE 60 MG TABLET PO SCH ×2 (08:37→20:55)
[2021-03-12] MEDS ORDERED: PANTOPRAZOLE 40 MG TABLET PO SCH (09:00)
[2021-03-12] MEDS ORDERED: FUROSEMIDE 40 MG/4 ML VIAL ONE (18:25)
[2021-03-12] MEDS ORDERED: FUROSEMIDE 40 MG/4 ML VIAL IV ONE (18:27)
[2021-03-12] MEDS ORDERED: ALBUTEROL/IPRATROPIUM 3 ML NEB RESP TX PRN (18:27)
[2021-03-12] MEDS ORDERED: ALBUTEROL/IPRATROPIUM 3 ML NEB RESP TX ONE (18:27)
[2021-03-12] MEDS: WARFARIN 5 MG TABLET PO SCH (18:35)
[2021-03-12] MEDS ORDERED: methylPREDNISolone SOD SUC 125 MG/2 ML VIAL ONE (18:37)
[2021-03-12] MEDS ORDERED: methylPREDNISolone SOD SUC 125 MG/2 ML VIAL IV ONE (18:38)
[2021-03-12] MEDS ORDERED: SPIRONOLACTONE 25 MG TABLET PO ONE (18:48)
[2021-03-12 18:57] LABS: Basophils % 0.2 % (0.0-0.8); Eosinophils # 0.2 10*3/uL (0.0-0.87); Hematocrit 29.4 VOL% (35.7-47.0); Immature Granulocytes % 0.5 %; Immature Granulocytes Absolute 0.04 #; Lymphocytes # 1.6 10*3/uL (1.4-4.0); Lymphocytes % 18.4 % (21.3-54.2); Mean Corpuscular HGB Conc 29.3 GM/DL (32-36); Mean Corpuscular Volume 96.1 FL (87-102); Mean Platelet Volume 12.2 FL (9.6-12.0); Monocytes % 5.5 % (1.7-12.7); Neutrophils % 73.4 % (38.7-73.9); Red Blood Count 3.06 MC/CUMM (3.8-5.5); Red Cell Distribution Width 17.2 % (9.3-17.3); White Blood Count 8.7 T/CUMM (4-12)
[2021-03-12 18:58] LABS: Hemoglobin 8.6 GM/DL (12.0-16.0); Platelet Count 185 T/CUMM (130-400)
[2021-03-12] MEDS ORDERED: NITROGLYCERIN 2% OINT 1 INCH/GM PACK TOP ONE (18:59)
[2021-03-12 19:16] LABS: Albumin 3.5 G/DL (3.4-5.0); Bilirubin,Total 0.4 MG/DL (0.20-1.00); Calcium 8.7 MG/DL (8.5-10.1); Osmolality,Calculated 288.3 MOS/KG (273-304); Potassium 4.2 MMOL/L (3.5-5.1); Total Protein 7.8 G/DL (6.4-8.2)
[2021-03-12] MEDS: AMITRIPTYLINE 25 MG TABLET PO SCH (20:55)
[2021-03-12] MEDS: SIMVASTATIN 40 MG TABLET PO SCH (20:56)
[2021-03-12] MEDS ORDERED: chlordiazePOXIDE 10 MG CAPSULE PO ONE (21:19)
[2021-03-12] MEDS: LATANOPROST 0.005% OPH SOLN 2.5 ML BOTTLE BOTH EYES SCH (21:24)
[2021-03-12 22:31] LABS: Bacteria,Urine Moderate /HPF (Few); Bilirubin,Urine Negative (Negative); Blood, Urine Moderate mg/dL (Negative); Glucose,Urine (UA) Negative (Negative); Hyaline Casts,Urine 3 /LPF (0-3); Ketones,Urine Negative (Negative); Nitrite,Urine Negative (Negative); Protein,Urine Negative; RBC,Urine 7 /HPF (0-4); Squamous Epithelial Cell,Urine Occasional /HPF (0-10); Urine Appearance Slightly Hazy (Clear); Urine Color Yellow (Yellow); Urine Specific Gravity 1.006 (1.001-1.035); Urine Urobilinogen < 2.0 EU/DL (0.2-1.0)
[2021-03-13 03:59] LABS: Hematocrit 25.6 VOL% (35.7-47.0); Hemoglobin 7.7 GM/DL (12.0-16.0); Immature Granulocytes % 1.6 %; Immature Granulocytes Absolute 0.09 #; Lymphocytes # 0.3 10*3/uL (1.4-4.0); Lymphocytes % 5.2 % (21.3-54.2); Mean Corpuscular HGB Conc 30.1 GM/DL (32-36); Mean Corpuscular Volume 93.8 FL (87-102); Mean Platelet Volume 12.2 FL (9.6-12.0); Monocytes % 0.9 % (1.7-12.7); Neutrophils % 92.3 % (38.7-73.9); Platelet Count 144 T/CUMM (130-400); Red Blood Count 2.73 MC/CUMM (3.8-5.5); Red Cell Distribution Width 16.9 % (9.3-17.3); White Blood Count 5.6 T/CUMM (4-12)
[2021-03-13 04:12] LABS: INR 1.6; PT Patient Result 17.5 SECS (10.5-12.0)
[2021-03-13 04:19] LABS: Hypochromasia 1+; Lymphocytes 3 % (20-55); Microcytosis 1+; Platelet Estimate Adequate; Segmented Neutrophils 97 % (50-85); Total Cells Counted 100
[2021-03-13 04:57] LABS: Calcium 8.4 MG/DL (8.5-10.1); Osmolality,Calculated 285.3 MOS/KG (273-304); Potassium 4.3 MMOL/L (3.5-5.1)
[2021-03-13] MEDS: INSULIN LISPRO 100 UNIT/ML SUBCUT SCH ×4 (08:00→20:50)
[2021-03-13] MEDS: amLODIPine 10 MG TABLET PO SCH (08:25)
[2021-03-13] MEDS: hydrALAZINE 25 MG TABLET PO SCH ×2 (08:26→20:35)
[2021-03-13] MEDS: FUROSEMIDE 80 MG TABLET PO SCH ×2 (08:26→20:36)
[2021-03-13] MEDS: ISOSORBIDE MONONITRATE 60 MG TABLET PO SCH ×2 (08:26→20:35)
[2021-03-13] MEDS: POTASSIUM CHLORIDE 20 MEQ TABLET PO SCH (08:27)
[2021-03-13] MEDS: PANTOPRAZOLE 40 MG TABLET PO SCH (08:27)
[2021-03-13] MEDS: carvediloL 25 MG TABLET PO SCH ×2 (08:27→20:36)
[2021-03-13] MEDS: ASPIRIN EC 81 MG TABLET PO SCH (08:27)
[2021-03-13] MEDS: WARFARIN 2.5 MG TABLET PO SCH (18:12)
[2021-03-13] MEDS: SIMVASTATIN 40 MG TABLET PO SCH (20:36)
[2021-03-13] MEDS: AMITRIPTYLINE 25 MG TABLET PO SCH (20:36)
[2021-03-13] MEDS: ZALEPLON 5 MG CAPSULE PO PRN (20:43)
[2021-03-13] MEDS: LATANOPROST 0.005% OPH SOLN 2.5 ML BOTTLE BOTH EYES SCH (20:50)
[2021-03-14 06:53] LABS: Basophils % 0.2 % (0.0-0.8); Eosinophils % 0.6 % (0.00-10.9); Hemoglobin 6.8 GM/DL (12.0-16.0); Immature Granulocytes % 0.4 %; Immature Granulocytes Absolute 0.02 #; Lymphocytes # 0.9 10*3/uL (1.4-4.0); Lymphocytes % 17.3 % (21.3-54.2); Mean Corpuscular HGB Conc 30.9 GM/DL (32-36); Mean Corpuscular Volume 92.8 FL (87-102); Mean Platelet Volume 12.8 FL (9.6-12.0); Monocytes % 9.2 % (1.7-12.7); Neutrophils % 72.3 % (38.7-73.9); Platelet Count 121 T/CUMM (130-400); Red Blood Count 2.37 MC/CUMM (3.8-5.5); Red Cell Distribution Width 17.2 % (9.3-17.3); White Blood Count 5.3 T/CUMM (4-12)
[2021-03-14 06:58] LABS: INR 1.3
[2021-03-14 07:21] LABS: Calcium 8.2 MG/DL (8.5-10.1); Osmolality,Calculated 289.1 MOS/KG (273-304); Potassium 3.9 MMOL/L (3.5-5.1)
[2021-03-14] MEDS: POTASSIUM CHLORIDE 20 MEQ TABLET PO SCH (08:30)
[2021-03-14] MEDS: ISOSORBIDE MONONITRATE 60 MG TABLET PO SCH ×2 (08:30→20:15)
[2021-03-14] MEDS: ASPIRIN EC 81 MG TABLET PO SCH (08:30)
[2021-03-14] MEDS: FUROSEMIDE 80 MG TABLET PO SCH ×2 (08:30→20:15)
[2021-03-14] MEDS: hydrALAZINE 25 MG TABLET PO SCH ×2 (08:31→20:15)
[2021-03-14] MEDS: amLODIPine 10 MG TABLET PO SCH (08:31)
[2021-03-14] MEDS: carvediloL 25 MG TABLET PO SCH ×2 (08:31→20:15)
[2021-03-14] MEDS: PANTOPRAZOLE 40 MG TABLET PO SCH (08:31)
[2021-03-14] MEDS: INSULIN LISPRO 100 UNIT/ML SUBCUT SCH ×3 (11:41→20:15)
[2021-03-14] MEDS: WARFARIN 5 MG TABLET PO SCH (17:31)
[2021-03-14] MEDS: SIMVASTATIN 40 MG TABLET PO SCH (20:15)
[2021-03-14] MEDS: AMITRIPTYLINE 25 MG TABLET PO SCH (20:15)
[2021-03-14] MEDS: LATANOPROST 0.005% OPH SOLN 2.5 ML BOTTLE BOTH EYES SCH (20:32)
[2021-03-15 04:20] LABS: Basophils % 0.2 % (0.0-0.8); Eosinophils # 0.1 10*3/uL (0.0-0.87); Eosinophils % 2.2 % (0.00-10.9); Hematocrit 22.3 VOL% (35.7-47.0); Hemoglobin 6.7 GM/DL (12.0-16.0); Immature Granulocytes % 0.2 %; Immature Granulocytes Absolute 0.01 #; Lymphocytes % 19.4 % (21.3-54.2); Mean Corpuscular Volume 93.3 FL (87-102); Mean Platelet Volume 12.2 FL (9.6-12.0); Monocytes % 8.8 % (1.7-12.7); Neutrophils % 69.2 % (38.7-73.9); Platelet Count 102 T/CUMM (130-400); Red Blood Count 2.39 MC/CUMM (3.8-5.5); Red Cell Distribution Width 17.2 % (9.3-17.3); White Blood Count 4.9 T/CUMM (4-12)
[2021-03-15 04:28] LABS: INR 1.2; PT Patient Result 12.9 SECS (10.5-12.0)
[2021-03-15 04:37] LABS: Osmolality,Calculated 293.1 MOS/KG (273-304); Potassium 4.3 MMOL/L (3.5-5.1)
[2021-03-15] MEDS: INSULIN LISPRO 100 UNIT/ML SUBCUT SCH ×4 (07:13→21:49)
[2021-03-15] MEDS ORDERED: MAGNESIUM SULF RIDER 2 GM/50 ML PREMIX IV ONE (08:20)
[2021-03-15] MEDS: HEPARIN DRIP 25,000 UNITS/500 ML PREMIX IV SCH (09:12)
[2021-03-15] MEDS: PANTOPRAZOLE 40 MG TABLET PO SCH (09:13)
[2021-03-15] MEDS: hydrALAZINE 25 MG TABLET PO SCH ×2 (09:13→21:48)
[2021-03-15] MEDS: FUROSEMIDE 80 MG TABLET PO SCH ×2 (09:13→21:48)
[2021-03-15] MEDS: ASPIRIN EC 81 MG TABLET PO SCH (09:13)
[2021-03-15] MEDS: ISOSORBIDE MONONITRATE 60 MG TABLET PO SCH ×2 (09:13→21:47)
[2021-03-15] MEDS: carvediloL 25 MG TABLET PO SCH ×2 (09:13→21:48)
[2021-03-15] MEDS: POTASSIUM CHLORIDE 20 MEQ TABLET PO SCH (09:13)
[2021-03-15] MEDS ORDERED: SODIUM CHLORIDE 0.9% 1,000 ML IV PRN (14:33)
[2021-03-15] MEDS ORDERED: FUROSEMIDE 40 MG/4 ML VIAL IV ONE ×2 (15:21→22:00)
[2021-03-15] MEDS ORDERED: HEPARIN 5,000 UNIT/1 ML VIAL IV ONE (16:16)
[2021-03-15] MEDS ORDERED: WARFARIN 5 MG TABLET PO ONE (16:22)
[2021-03-15] MEDS ORDERED: MAGNESIUM CHLORIDE 64 MG TABLET PO ONE (16:25)
[2021-03-15] MEDS: WARFARIN 2.5 MG TABLET PO SCH (16:53)
[2021-03-15] MEDS: SIMVASTATIN 40 MG TABLET PO SCH (21:47)
[2021-03-15] MEDS: AMITRIPTYLINE 25 MG TABLET PO SCH (21:47)
[2021-03-15] MEDS: ZALEPLON 5 MG CAPSULE PO PRN (22:17)
[2021-03-16] MEDS: LATANOPROST 0.005% OPH SOLN 2.5 ML BOTTLE BOTH EYES SCH ×2 (01:23→21:36)
[2021-03-16 05:27] LABS: Basophils % 0.2 % (0.0-0.8); Eosinophils # 0.1 10*3/uL (0.0-0.87); Eosinophils % 1.3 % (0.00-10.9); Eosinophils % 1.7 % (0.00-10.9); Hematocrit 25.1 VOL% (35.7-47.0); Hemoglobin 7.8 GM/DL (12.0-16.0); Hemoglobin 7.9 GM/DL (12.0-16.0); Immature Granulocytes % 0.3 %; Immature Granulocytes % 0.5 %; Immature Granulocytes Absolute 0.02 #; Immature Granulocytes Absolute 0.03 #; Lymphocytes # 0.6 10*3/uL (1.4-4.0); Lymphocytes # 0.7 10*3/uL (1.4-4.0); Lymphocytes % 10.2 % (21.3-54.2); Mean Corpuscular HGB Conc 31.2 GM/DL (32-36); Mean Corpuscular HGB Conc 31.5 GM/DL (32-36); Mean Corpuscular Volume 90.3 FL (87-102); Mean Corpuscular Volume 90.6 FL (87-102); Mean Platelet Volume 12.7 FL (9.6-12.0); Mean Platelet Volume 12.8 FL (9.6-12.0); Monocytes % 6.9 % (1.7-12.7); Monocytes % 7.2 % (1.7-12.7); Neutrophils % 80.1 % (38.7-73.9); Neutrophils % 80.4 % (38.7-73.9); Platelet Count 124 T/CUMM (130-400); Platelet Count 126 T/CUMM (130-400); Red Blood Count 2.77 MC/CUMM (3.8-5.5); Red Cell Distribution Width 16.6 % (9.3-17.3); Red Cell Distribution Width 16.7 % (9.3-17.3)
[2021-03-16 05:44] LABS: INR 1.2; PT Patient Result 13.6 SECS (10.5-12.0)
[2021-03-16 05:46] LABS: Calcium 8.1 MG/DL (8.5-10.1); INR 1.2; Osmolality,Calculated 294.1 MOS/KG (273-304); PT Patient Result 13.3 SECS (10.5-12.0); Potassium 3.6 MMOL/L (3.5-5.1)
[2021-03-16 05:48] LABS: Calcium 8.1 MG/DL (8.5-10.1); Parathyroid Hormone Intact 220.8 PG/ML (18.4-80.1); Potassium 3.7 MMOL/L (3.5-5.1)
[2021-03-16 05:50] LABS: % Iron Saturation 28.3 % (18-50); Ferritin 320.2 ng/mL (8-252)
[2021-03-16 06:09] LABS: Folate 18.16 NG/ML (5.38-24.0); Vitamin B12 463 PG/ML (211-911)
[2021-03-16 06:52] LABS: Sedimentation Rate-Westergren 114 MM/HR (0-30)
[2021-03-16] MEDS: INSULIN LISPRO 100 UNIT/ML SUBCUT SCH ×4 (09:14→21:05)
[2021-03-16] MEDS: carvediloL 25 MG TABLET PO SCH ×2 (09:17→21:07)
[2021-03-16] MEDS: ISOSORBIDE MONONITRATE 60 MG TABLET PO SCH ×2 (09:17→21:07)
[2021-03-16] MEDS: ASPIRIN EC 81 MG TABLET PO SCH (09:17)
[2021-03-16] MEDS: PANTOPRAZOLE 40 MG TABLET PO SCH (09:17)
[2021-03-16] MEDS: POTASSIUM CHLORIDE 20 MEQ TABLET PO SCH (09:17)
[2021-03-16] MEDS: FUROSEMIDE 80 MG TABLET PO SCH (09:17)
[2021-03-16] MEDS: hydrALAZINE 25 MG TABLET PO SCH ×2 (09:17→21:07)
[2021-03-16] MEDS: MAGNESIUM CHLORIDE 64 MG TABLET PO SCH (09:17)
[2021-03-16] MEDS: HEPARIN DRIP 25,000 UNITS/500 ML PREMIX IV SCH ×2 (09:21→21:43)
[2021-03-16 09:47] LABS: INR 1.3; Partial Thromboplastin Time 44.2 SECS (23.9-33.8)
[2021-03-16] MEDS ORDERED: WARFARIN 3 MG TABLET PO ONE (14:12)
[2021-03-16] MEDS: FUROSEMIDE 20 MG TABLET PO SCH (16:07)
[2021-03-16] MEDS: WARFARIN 5 MG TABLET PO SCH (16:07)
[2021-03-16 16:28] LABS: INR 1.3; PT Patient Result 14.7 SECS (10.5-12.0); Partial Thromboplastin Time 48.7 SECS (23.9-33.8)
[2021-03-16] MEDS: AMITRIPTYLINE 25 MG TABLET PO SCH (21:06)
[2021-03-16] MEDS: SIMVASTATIN 40 MG TABLET PO SCH (21:06)
[2021-03-16] MEDS: ZALEPLON 5 MG CAPSULE PO PRN (21:06)
[2021-03-16] MEDS: ACETAMINOPHEN 325 MG TABLET PO PRN (21:07)
[2021-03-17 05:53] LABS: Basophils % 0.3 % (0.0-0.8); Eosinophils # 0.1 10*3/uL (0.0-0.87); Eosinophils % 2.8 % (0.00-10.9); Hematocrit 25.6 VOL% (35.7-47.0); Hemoglobin 7.8 GM/DL (12.0-16.0); Immature Granulocytes % 0.3 %; Immature Granulocytes Absolute 0.01 #; Lymphocytes % 25.1 % (21.3-54.2); Mean Corpuscular HGB Conc 30.5 GM/DL (32-36); Mean Corpuscular Volume 91.1 FL (87-102); Mean Platelet Volume 12.4 FL (9.6-12.0); Monocytes % 8.9 % (1.7-12.7); Neutrophils % 62.6 % (38.7-73.9); Platelet Count 124 T/CUMM (130-400); Red Blood Count 2.81 MC/CUMM (3.8-5.5); Red Cell Distribution Width 16.7 % (9.3-17.3); White Blood Count 3.9 T/CUMM (4-12)
[2021-03-17 05:58] LABS: INR 1.5; PT Patient Result 15.9 SECS (10.5-12.0)
[2021-03-17 06:10] LABS: Calcium 8.3 MG/DL (8.5-10.1); Osmolality,Calculated 295.1 MOS/KG (273-304); Potassium 3.4 MMOL/L (3.5-5.1)
[2021-03-17] MEDS: INSULIN LISPRO 100 UNIT/ML SUBCUT SCH ×4 (07:25→20:37)
[2021-03-17] MEDS: carvediloL 25 MG TABLET PO SCH ×2 (08:20→20:38)
[2021-03-17] MEDS: ISOSORBIDE MONONITRATE 60 MG TABLET PO SCH ×2 (08:20→20:38)
[2021-03-17] MEDS: MAGNESIUM CHLORIDE 64 MG TABLET PO SCH (08:20)
[2021-03-17] MEDS: ASPIRIN EC 81 MG TABLET PO SCH (08:20)
[2021-03-17] MEDS: PANTOPRAZOLE 40 MG TABLET PO SCH (08:21)
[2021-03-17] MEDS: hydrALAZINE 25 MG TABLET PO SCH ×2 (08:21→20:38)
[2021-03-17] MEDS: FUROSEMIDE 20 MG TABLET PO SCH ×2 (08:21→17:03)
[2021-03-17] MEDS: POTASSIUM CHLORIDE 20 MEQ TABLET PO SCH (08:21)
[2021-03-17] MEDS: HEPARIN DRIP 25,000 UNITS/500 ML PREMIX IV SCH (08:32)
[2021-03-17 09:11] LABS: Anisocytosis 1+; Platelet Estimate Adequate
[2021-03-17] MEDS: WARFARIN 5 MG TABLET PO SCH (17:04)
[2021-03-17] MEDS: LATANOPROST 0.005% OPH SOLN 2.5 ML BOTTLE BOTH EYES SCH (20:37)
[2021-03-17] MEDS: AMITRIPTYLINE 25 MG TABLET PO SCH (20:37)
[2021-03-17] MEDS: SIMVASTATIN 40 MG TABLET PO SCH (20:37)
[2021-03-17] MEDS: diphenhydrAMINE CAP 25 MG CAPSULE PO PRN (20:38)
[2021-03-17] MEDS: ACETAMINOPHEN 325 MG TABLET PO PRN (20:38)
[2021-03-18] MEDS: HEPARIN DRIP 25,000 UNITS/500 ML PREMIX IV SCH ×2 (05:11→10:09)
[2021-03-18 06:16] LABS: Basophils % 0.2 % (0.0-0.8); Eosinophils # 0.2 10*3/uL (0.0-0.87); Eosinophils % 3.8 % (0.00-10.9); Hematocrit 25.7 VOL% (35.7-47.0); Hemoglobin 8.1 GM/DL (12.0-16.0); Immature Granulocytes % 0.5 %; Immature Granulocytes Absolute 0.02 #; Lymphocytes # 0.9 10*3/uL (1.4-4.0); Lymphocytes % 21.1 % (21.3-54.2); Mean Corpuscular HGB Conc 31.5 GM/DL (32-36); Mean Corpuscular Volume 91.5 FL (87-102); Mean Platelet Volume 12.4 FL (9.6-12.0); Monocytes % 10.7 % (1.7-12.7); Neutrophils % 63.7 % (38.7-73.9); Platelet Count 143 T/CUMM (130-400); Red Blood Count 2.81 MC/CUMM (3.8-5.5); Red Cell Distribution Width 16.7 % (9.3-17.3); White Blood Count 4.2 T/CUMM (4-12)
[2021-03-18 06:31] LABS: INR 1.6; PT Patient Result 17.1 SECS (10.5-12.0)
[2021-03-18 06:40] LABS: Calcium 8.4 MG/DL (8.5-10.1); Osmolality,Calculated 293.3 MOS/KG (273-304); Potassium 3.5 MMOL/L (3.5-5.1)
[2021-03-18] MEDS: INSULIN LISPRO 100 UNIT/ML SUBCUT SCH ×4 (07:01→20:26)
[2021-03-18] MEDS: ISOSORBIDE MONONITRATE 60 MG TABLET PO SCH ×2 (08:06→20:25)
[2021-03-18] MEDS: ASPIRIN EC 81 MG TABLET PO SCH (08:07)
[2021-03-18] MEDS: carvediloL 25 MG TABLET PO SCH ×2 (08:07→20:24)
[2021-03-18] MEDS: PANTOPRAZOLE 40 MG TABLET PO SCH (08:07)
[2021-03-18] MEDS: hydrALAZINE 25 MG TABLET PO SCH ×2 (08:07→20:24)
[2021-03-18] MEDS: MAGNESIUM CHLORIDE 64 MG TABLET PO SCH (08:07)
[2021-03-18] MEDS: FUROSEMIDE 20 MG TABLET PO SCH ×2 (08:07→16:11)
[2021-03-18] MEDS: POTASSIUM CHLORIDE 20 MEQ TABLET PO SCH (08:08)
[2021-03-18 08:31] LABS: Hemoglobin A1 (Alkaline) 97.9 % (96.5-98.5); Hemoglobin A2 (Alkaline) 2.1 % (1.5-3.5)
[2021-03-18] MEDS ORDERED: WARFARIN 10 MG TABLET PO ONE (15:00)
[2021-03-18] MEDS: SIMVASTATIN 40 MG TABLET PO SCH (20:25)
[2021-03-18] MEDS: AMITRIPTYLINE 25 MG TABLET PO SCH (20:25)
[2021-03-18] MEDS: LATANOPROST 0.005% OPH SOLN 2.5 ML BOTTLE BOTH EYES SCH (20:27)
[2021-03-18] MEDS ORDERED: diphenhydrAMINE CAP 25 MG CAPSULE PO PRN (22:15)
[2021-03-19 05:13] LABS: Basophils % 0.4 % (0.0-0.8); Eosinophils # 0.2 10*3/uL (0.0-0.87); Eosinophils % 3.3 % (0.00-10.9); Hematocrit 24.8 VOL% (35.7-47.0); Hemoglobin 7.7 GM/DL (12.0-16.0); Immature Granulocytes % 0.2 %; Immature Granulocytes Absolute 0.01 #; Lymphocytes # 0.9 10*3/uL (1.4-4.0); Lymphocytes % 20.6 % (21.3-54.2); Mean Corpuscular Volume 92.2 FL (87-102); Mean Platelet Volume 12.1 FL (9.6-12.0); Monocytes % 9.3 % (1.7-12.7); Neutrophils % 66.2 % (38.7-73.9); Platelet Count 135 T/CUMM (130-400); Red Blood Count 2.69 MC/CUMM (3.8-5.5); Red Cell Distribution Width 16.7 % (9.3-17.3); White Blood Count 4.5 T/CUMM (4-12)
[2021-03-19 05:29] LABS: INR 2.1; PT Patient Result 22.3 SECS (10.5-12.0)
[2021-03-19 06:03] LABS: Calcium 8.6 MG/DL (8.5-10.1); Osmolality,Calculated 288.7 MOS/KG (273-304); Potassium 3.6 MMOL/L (3.5-5.1)
[2021-03-19] MEDS: ISOSORBIDE MONONITRATE 60 MG TABLET PO SCH (08:50)
[2021-03-19] MEDS: POTASSIUM CHLORIDE 20 MEQ TABLET PO SCH (08:50)
[2021-03-19] MEDS: hydrALAZINE 25 MG TABLET PO SCH (08:50)
[2021-03-19] MEDS: carvediloL 25 MG TABLET PO SCH (08:50)
[2021-03-19] MEDS: ASPIRIN EC 81 MG TABLET PO SCH (08:50)
[2021-03-19] MEDS: PANTOPRAZOLE 40 MG TABLET PO SCH (08:50)
[2021-03-19] MEDS: MAGNESIUM CHLORIDE 64 MG TABLET PO SCH (08:51)
[2021-03-19] MEDS: FUROSEMIDE 20 MG TABLET PO SCH (08:51)
[2021-03-19] MEDS: INSULIN LISPRO 100 UNIT/ML SUBCUT SCH ×2 (10:23→13:11)
[2021-03-19 11:25] VITALS: BP 132/62
== END 2021-03-19 15:40 | disposition home health service (06) | DRG 813 ==
LOC: N.ED 14:54 → N.3E 18:59 → SUATTDRO 18:59 → N.3E 20:00 → N.ICU 03-12 18:43 → N.5E 03-15 13:49
PROVIDERS: ADMIT Hospitalist; ATTEND Internal Medicine

== ENCOUNTER 2021-05-23 14:09 | Inpatient (IN) ==
[2021-05-23] MEDS ORDERED: SODIUM CHLORIDE 0.9% 1,000 ML IV PRN (14:50)
[2021-05-23 15:03] LABS: Basophils % 0.1 % (0.0-0.8); Eosinophils # 0.1 10*3/uL (0.0-0.87); Eosinophils % 1.2 % (0.00-10.9); Hematocrit 21.3 VOL% (35.7-47.0); Immature Granulocytes % 0.4 %; Immature Granulocytes Absolute 0.03 #; Lymphocytes # 0.9 10*3/uL (1.4-4.0); Lymphocytes % 13.3 % (21.3-54.2); Mean Corpuscular Volume 95.5 FL (87-102); Mean Platelet Volume 12.1 FL (9.6-12.0); Monocytes % 5.8 % (1.7-12.7); NRBC # 0.02 10*3/uL; Neutrophils % 79.2 % (38.7-73.9); Platelet Count 195 T/CUMM (130-400); Red Blood Count 2.23 MC/CUMM (3.8-5.5); Red Cell Distribution Width 17.9 % (9.3-17.3); White Blood Count 6.8 T/CUMM (4-12)
[2021-05-23 15:05] LABS: Hemoglobin 6.4 GM/DL (12.0-16.0)
[2021-05-23 15:18] LABS: INR 2.3
[2021-05-23 15:55] LABS: Alanine Aminotransferase 24 U/L (13-56); Albumin 3.6 G/DL (3.4-5.0); Alkaline Phosphatase 100 U/L (45-117); Aspartate Amino Transferase 13 U/L (0-37); Bilirubin,Total < 0.39 MG/DL (0.20-1.00); Blood Urea Nitrogen 62 MG/DL (7-18); Calcium 8.5 MG/DL (8.5-10.1); Carbon Dioxide 30 MMOL/L (21-32); Estimated Glom Filtration Rate 19 ML/MIN; Glucose 139 MG/DL (74-106); Osmolality,Calculated 298.4 MOS/KG (273-304); Potassium 3.9 MMOL/L (3.5-5.1); Sodium 140 MMOL/L (136-145); Total Protein 6.9 G/DL (6.4-8.2)
[2021-05-23] MEDS ORDERED: DEXTROSE 50% 25 GM/50 ML VIAL IV PRN (16:38)
[2021-05-23] MEDS ORDERED: ONDANSETRON 4 MG/2 ML VIAL IV PRN (16:38)
[2021-05-23] MEDS ORDERED: hydrALAZINE 20 MG/1 ML VIAL IV PRN (16:38)
[2021-05-23] MEDS ORDERED: GLUCAGON 1 MG VIAL IM PRN (16:38)
[2021-05-23] MEDS ORDERED: NITROGLYCERIN SL 0.4 MG TABLET SL PRN (16:38)
[2021-05-23] MEDS ORDERED: ACETAMINOPHEN 325 MG TABLET PO PRN (16:38)
[2021-05-23] MEDS ORDERED: WARFARIN 5 MG TABLET PO SCH (18:00)
[2021-05-23 18:26] LABS: Risk Ratio 3.57; Thyroid Stimulating Hormone 3.21 uIU/ml (0.358-3.74); VLDL Cholesterol 50.4 MG/DL
[2021-05-23 20:49] LABS: Hematocrit 20.4 VOL% (35.7-47.0)
[2021-05-23 20:51] LABS: Hemoglobin 6.1 GM/DL (12.0-16.0)
[2021-05-23] MEDS: PANTOPRAZOLE 40 MG VIAL IV SCH (22:40)
[2021-05-23] MEDS: LATANOPROST 0.005% OPH SOLN 2.5 ML BOTTLE BOTH EYES SCH (22:40)
[2021-05-23] MEDS: ISOSORBIDE MONONITRATE 60 MG TABLET PO SCH (22:41)
[2021-05-23] MEDS: hydrALAZINE 25 MG TABLET PO SCH (22:41)
[2021-05-23] MEDS: AMITRIPTYLINE 25 MG TABLET PO SCH (22:41)
[2021-05-23] MEDS: SIMVASTATIN 40 MG TABLET PO SCH (22:41)
[2021-05-23] MEDS: carvediloL 25 MG TABLET PO SCH (22:41)
[2021-05-23] MEDS: INSULIN LISPRO 100 UNIT/ML SUBCUT SCH (22:43)
[2021-05-24 00:45] LABS: Hematocrit 18.7 VOL% (35.7-47.0)
[2021-05-24 00:48] LABS: Hemoglobin 5.5 GM/DL (12.0-16.0)
[2021-05-24] MEDS ORDERED: PANTOPRAZOLE 40 MG TABLET PO SCH (09:00)
[2021-05-24] MEDS: INSULIN LISPRO 100 UNIT/ML SUBCUT SCH ×4 (09:10→21:25)
[2021-05-24] MEDS: FUROSEMIDE 20 MG TABLET PO SCH ×2 (09:18→17:22)
[2021-05-24] MEDS: carvediloL 25 MG TABLET PO SCH ×2 (09:18→21:07)
[2021-05-24] MEDS: hydrALAZINE 25 MG TABLET PO SCH ×2 (09:19→21:07)
[2021-05-24] MEDS: ISOSORBIDE MONONITRATE 60 MG TABLET PO SCH ×2 (09:19→21:07)
[2021-05-24] MEDS: PANTOPRAZOLE 40 MG VIAL IV SCH ×2 (09:44→21:06)
[2021-05-24 10:25] LABS: Immature Granulocytes % 0.4 %; Immature Granulocytes Absolute 0.03 #; Red Cell Distribution Width 18.6 % (9.3-17.3)
[2021-05-24 10:32] LABS: Basophils % 0.3 % (0.0-0.8); Eosinophils # 0.1 10*3/uL (0.0-0.87); Eosinophils % 1.7 % (0.00-10.9); Hematocrit 23.5 VOL% (35.7-47.0); Lymphocytes # 0.6 10*3/uL (1.4-4.0); Lymphocytes % 7.9 % (21.3-54.2); Mean Corpuscular HGB Conc 31.5 GM/DL (32-36); Mean Corpuscular Volume 91.8 FL (87-102); Mean Platelet Volume 12.2 FL (9.6-12.0); Monocytes % 5.9 % (1.7-12.7); Neutrophils % 83.8 % (38.7-73.9); Platelet Count 151 T/CUMM (130-400); Red Blood Count 2.56 MC/CUMM (3.8-5.5); White Blood Count 7.6 T/CUMM (4-12)
[2021-05-24 10:34] LABS: INR 2.9
[2021-05-24 10:37] LABS: Hemoglobin 7.4 GM/DL (12.0-16.0)
[2021-05-24 10:43] LABS: Calcium 8.2 MG/DL (8.5-10.1); Potassium 3.9 MMOL/L (3.5-5.1)
[2021-05-24 10:46] LABS: Osmolality,Calculated 296.4 MOS/KG (273-304)
[2021-05-24] MEDS: OFLOXACIN 0.3% OPH SOLN 5 ML BOTTLE RIGHT EYE SCH ×3 (13:17→21:09)
[2021-05-24] MEDS: KETOROLAC 0.5% OPH SOLN 5 ML BOTTLE RIGHT EYE SCH ×3 (13:17→21:09)
[2021-05-24] MEDS: prednisoLONE ACETATE 1% OPH SUSP 5 ML BOTTLE RIGHT EYE SCH ×3 (13:17→21:08)
[2021-05-24] MEDS ORDERED: NICOTINE 14 MG/24 HR PATCH TRANSDERM PRN (14:31)
[2021-05-24 15:04] LABS: Hematocrit 24.1 VOL% (35.7-47.0); Hemoglobin 7.4 GM/DL (12.0-16.0)
[2021-05-24] MEDS ORDERED: WARFARIN 2.5 MG TABLET PO SCH (18:00)
[2021-05-24 20:30] LABS: Hematocrit 23.3 VOL% (35.7-47.0); Hemoglobin 7.1 GM/DL (12.0-16.0)
[2021-05-24] MEDS: AMITRIPTYLINE 25 MG TABLET PO SCH (21:07)
[2021-05-24] MEDS: SIMVASTATIN 40 MG TABLET PO SCH (21:07)
[2021-05-24] MEDS: LATANOPROST 0.005% OPH SOLN 2.5 ML BOTTLE BOTH EYES SCH (21:25)
[2021-05-25 02:47] LABS: Basophils % 0.4 % (0.0-0.8); Eosinophils # 0.2 10*3/uL (0.0-0.87); Eosinophils % 3.2 % (0.00-10.9); Hematocrit 22.9 VOL% (35.7-47.0); Hematocrit 23.1 VOL% (35.7-47.0); Hemoglobin 7.1 GM/DL (12.0-16.0); Immature Granulocytes % 0.4 %; Immature Granulocytes Absolute 0.02 #; Lymphocytes # 0.9 10*3/uL (1.4-4.0); Lymphocytes % 16.6 % (21.3-54.2); Mean Corpuscular HGB Conc 30.6 GM/DL (32-36); Mean Platelet Volume 11.7 FL (9.6-12.0); Monocytes % 8.7 % (1.7-12.7); Neutrophils % 70.7 % (38.7-73.9); Platelet Count 152 T/CUMM (130-400); Red Blood Count 2.49 MC/CUMM (3.8-5.5); White Blood Count 5.3 T/CUMM (4-12)
[2021-05-25 02:57] LABS: INR 3.8; PT Patient Result 38.6 SECS (10.5-12.0)
[2021-05-25 03:04] LABS: Potassium 3.5 MMOL/L (3.5-5.1)
[2021-05-25] MEDS: INSULIN LISPRO 100 UNIT/ML SUBCUT SCH ×4 (08:02→20:03)
[2021-05-25] MEDS: PANTOPRAZOLE 40 MG VIAL IV SCH ×2 (08:51→20:52)
[2021-05-25] MEDS: FUROSEMIDE 20 MG TABLET PO SCH ×2 (10:08→20:19)
[2021-05-25] MEDS: carvediloL 25 MG TABLET PO SCH ×2 (10:09→20:49)
[2021-05-25] MEDS: ISOSORBIDE MONONITRATE 60 MG TABLET PO SCH ×2 (10:09→20:49)
[2021-05-25] MEDS: hydrALAZINE 25 MG TABLET PO SCH ×2 (10:09→20:50)
[2021-05-25] MEDS: OFLOXACIN 0.3% OPH SOLN 5 ML BOTTLE RIGHT EYE SCH ×4 (10:13→20:51)
[2021-05-25] MEDS: KETOROLAC 0.5% OPH SOLN 5 ML BOTTLE RIGHT EYE SCH ×4 (10:14→20:50)
[2021-05-25] MEDS: prednisoLONE ACETATE 1% OPH SUSP 5 ML BOTTLE RIGHT EYE SCH ×4 (10:14→20:51)
[2021-05-25 14:39] LABS: Folate 11.63 NG/ML (5.38-24.0); Vitamin B12 392 PG/ML (211-911)
[2021-05-25 14:52] LABS: Basophils % 0.3 % (0.0-0.8); Eosinophils # 0.1 10*3/uL (0.0-0.87); Eosinophils % 1.9 % (0.00-10.9); Hemoglobin 6.7 GM/DL (12.0-16.0); Immature Granulocytes % 0.2 %; Immature Granulocytes Absolute 0.01 #; Lymphocytes # 0.7 10*3/uL (1.4-4.0); Lymphocytes % 11.9 % (21.3-54.2); Mean Corpuscular HGB Conc 30.5 GM/DL (32-36); Mean Platelet Volume 11.2 FL (9.6-12.0); Monocytes % 7.7 % (1.7-12.7); NRBC # 0.02 10*3/uL; Platelet Count 150 T/CUMM (130-400); Red Blood Count 2.34 MC/CUMM (3.8-5.5); Red Cell Distribution Width 19.3 % (9.3-17.3); White Blood Count 5.7 T/CUMM (4-12)
[2021-05-25] MEDS ORDERED: SODIUM CHLORIDE 0.9% 1,000 ML IV PRN (15:20)
[2021-05-25 15:59] LABS: Sedimentation Rate-Westergren 76 MM/HR (0-30)
[2021-05-25] MEDS: AMITRIPTYLINE 25 MG TABLET PO SCH (20:49)
[2021-05-25] MEDS: SIMVASTATIN 40 MG TABLET PO SCH (20:49)
[2021-05-25] MEDS: LATANOPROST 0.005% OPH SOLN 2.5 ML BOTTLE BOTH EYES SCH (21:50)
[2021-05-26 03:04] LABS: Basophils % 0.3 % (0.0-0.8); Eosinophils # 0.1 10*3/uL (0.0-0.87); Hematocrit 28.8 VOL% (35.7-47.0); Hemoglobin 8.8 GM/DL (12.0-16.0); Immature Granulocytes % 0.3 %; Immature Granulocytes Absolute 0.02 #; Lymphocytes # 0.9 10*3/uL (1.4-4.0); Lymphocytes % 14.8 % (21.3-54.2); Mean Corpuscular HGB Conc 30.6 GM/DL (32-36); Mean Corpuscular Volume 90.3 FL (87-102); Mean Platelet Volume 11.6 FL (9.6-12.0); Monocytes % 7.6 % (1.7-12.7); Platelet Count 153 T/CUMM (130-400); Red Blood Count 3.19 MC/CUMM (3.8-5.5); Red Cell Distribution Width 18.2 % (9.3-17.3); White Blood Count 5.9 T/CUMM (4-12)
[2021-05-26 03:15] LABS: Calcium 7.9 MG/DL (8.5-10.1); Potassium 3.4 MMOL/L (3.5-5.1)
[2021-05-26 03:17] LABS: INR 3.7; PT Patient Result 37.9 SECS (10.5-12.0)
[2021-05-26 03:24] LABS: Osmolality,Calculated 294.4 MOS/KG (273-304)
[2021-05-26] MEDS: INSULIN LISPRO 100 UNIT/ML SUBCUT SCH ×2 (07:58→12:33)
[2021-05-26] MEDS: FUROSEMIDE 20 MG TABLET PO SCH (09:26)
[2021-05-26] MEDS: carvediloL 25 MG TABLET PO SCH (09:26)
[2021-05-26] MEDS: ISOSORBIDE MONONITRATE 60 MG TABLET PO SCH (09:26)
[2021-05-26] MEDS: hydrALAZINE 25 MG TABLET PO SCH (09:26)
[2021-05-26] MEDS: prednisoLONE ACETATE 1% OPH SUSP 5 ML BOTTLE RIGHT EYE SCH (09:29)
[2021-05-26] MEDS: OFLOXACIN 0.3% OPH SOLN 5 ML BOTTLE RIGHT EYE SCH (09:29)
[2021-05-26] MEDS: KETOROLAC 0.5% OPH SOLN 5 ML BOTTLE RIGHT EYE SCH (09:30)
[2021-05-26] MEDS: PANTOPRAZOLE 40 MG VIAL IV SCH (09:43)
[2021-05-26 12:17] VITALS: BP 135/100
[2021-05-27 09:57] LABS: Hemoglobin A1 (Alkaline) 97.9 % (96.5-98.5); Hemoglobin A2 (Alkaline) 2.1 % (1.5-3.5)
== END 2021-05-26 13:50 | disposition home health service (06) | DRG 812 ==
LOC: SUATTDRO → N.ED 14:09 → N.EDINP 16:36 → SUATTDRO 16:36 → N.TELEN 18:09
PROVIDERS: ADMIT Internal Medicine; ATTEND Emergency Medicine

== ENCOUNTER 2022-05-13 11:50 | Inpatient (IN) ==
[2022-05-13] MEDS ORDERED: SODIUM CHLORIDE 0.9% 500 ML IV STA ×2 (11:59→12:57)
[2022-05-13] MEDS ORDERED: CYCLOBENZAPRINE 10 MG TABLET PO STA (11:59)
[2022-05-13] MEDS ORDERED: ONDANSETRON 4 MG/2 ML VIAL IV ONE (11:59)
[2022-05-13] MEDS ORDERED: HYDROmorphone 1 MG/1 ML SYRINGE IV STA (12:00)
[2022-05-13 12:24] LABS: Basophils % 0.1 % (0.0-0.8); Eosinophils % 0.4 % (0.00-10.9); Hematocrit 23.9 VOL% (35.7-47.0); Hemoglobin 7.5 GM/DL (12.0-16.0); Immature Granulocytes % 0.4 %; Immature Granulocytes Absolute 0.03 #; Lymphocytes # 0.6 10*3/uL (1.4-4.0); Lymphocytes % 7.6 % (21.3-54.2); Mean Corpuscular HGB Conc 31.4 GM/DL (32-36); Mean Corpuscular Volume 88.5 FL (87-102); Mean Platelet Volume 11.1 FL (9.6-12.0); Monocytes # 0.9 10*3/uL (0.11-0.8); Monocytes % 11.5 % (1.7-12.7); Platelet Count 178 T/CUMM (130-400); White Blood Count 7.7 T/CUMM (4-12)
[2022-05-13 12:45] LABS: Alanine Aminotransferase 16 U/L (13-56); Albumin 3.1 G/DL (3.4-5.0); Alkaline Phosphatase 84 U/L (45-117); Aspartate Amino Transferase 9 U/L (0-37); Bilirubin,Total < 0.39 MG/DL (0.20-1.00); Blood Urea Nitrogen 76 MG/DL (7-18); Calcium 8.3 MG/DL (8.5-10.1); Carbon Dioxide 28 MMOL/L (21-32); Chloride 104 MMOL/L (98-107); Glucose 119 MG/DL (74-106); Osmolality,Calculated 298.7 MOS/KG (273-304); Potassium 4.3 MMOL/L (3.5-5.1); Sodium 138 MMOL/L (136-145); Total Protein 7.2 G/DL (6.4-8.2)
[2022-05-13 13:08] LABS: Amorphous Crystals,Urine Few /HPF (Few); Bacteria,Urine Many /HPF (Few); Bilirubin,Urine Negative (Negative); Blood, Urine Small mg/dL (Negative); Glucose,Urine (UA) Negative (Negative); Ketones,Urine Negative (Negative); Mucus,Urine Occasional /LPF (Occasional); Nitrite,Urine Positive (Negative); Protein,Urine Negative (Negative); RBC,Urine 1 /HPF (0-4); Urine Appearance Slightly Hazy (Clear); Urine Color Yellow (Yellow); Urine Specific Gravity 1.009 (1.001-1.035); Urine Urobilinogen < 2.0 eU/dL (<2.0)
[2022-05-13] MEDS ORDERED: ACETAMINOPHEN 325 MG TABLET PO PRN (14:42)
[2022-05-13] MEDS ORDERED: DEXTROSE 10% 250 ML BAG IV PRN (14:42)
[2022-05-13] MEDS ORDERED: ONDANSETRON 4 MG/2 ML VIAL IV PRN (14:42)
[2022-05-13] MEDS ORDERED: GLUCAGON 1 MG VIAL IM PRN (14:42)
[2022-05-13] MEDS ORDERED: NITROGLYCERIN SL 0.4 MG TABLET SL PRN (15:04)
[2022-05-13] MEDS: SODIUM CHLORIDE 0.9% 1,000 ML IV SCH (15:21)
[2022-05-13 15:23] LABS: INR 3.7; PT Patient Result 37.5 SECS (10.1-12.1)
[2022-05-13 16:24] LABS: % Iron Saturation 6.3 % (18-50)
[2022-05-13 16:31] LABS: Folate 11.61 NG/ML (5.38-24.0)
[2022-05-13] MEDS: cefTRIAXone 1,000 MG in SODIUM CHLORIDE 0.9% 100 ML IV SCH (16:45)
[2022-05-13] MEDS: INSULIN LISPRO 100 UNIT/ML SUBCUT SCH ×2 (16:46→21:15)
[2022-05-13] MEDS: ISOSORBIDE MONONITRATE 60 MG TABLET PO SCH (21:14)
[2022-05-13] MEDS: AMITRIPTYLINE 25 MG TABLET PO SCH (21:15)
[2022-05-13] MEDS: hydrALAZINE 25 MG TABLET PO SCH (21:15)
[2022-05-13] MEDS: SIMVASTATIN 40 MG TABLET PO SCH (21:15)
[2022-05-13] MEDS: carvediloL 25 MG TABLET PO SCH (22:28)
[2022-05-14] MEDS: LATANOPROST 0.005% OPH SOLN 2.5 ML BOTTLE BOTH EYES SCH ×2 (01:19→21:11)
[2022-05-14 05:31] LABS: Basophils % 0.2 % (0.0-0.8); Eosinophils # 0.1 10*3/uL (0.0-0.87); Eosinophils % 1.3 % (0.00-10.9); Hematocrit 24.7 VOL% (35.7-47.0); Hemoglobin 7.1 GM/DL (12.0-16.0); Immature Granulocytes % 0.6 %; Immature Granulocytes Absolute 0.04 #; Lymphocytes # 0.7 10*3/uL (1.4-4.0); Lymphocytes % 10.5 % (21.3-54.2); Mean Corpuscular HGB Conc 28.7 GM/DL (32-36); Mean Corpuscular Volume 92.9 FL (87-102); Mean Platelet Volume 10.7 FL (9.6-12.0); Monocytes # 0.8 10*3/uL (0.11-0.8); Neutrophils % 74.4 % (38.7-73.9); Platelet Count 173 T/CUMM (130-400); Red Blood Count 2.66 MC/CUMM (3.8-5.5); Red Cell Distribution Width 18.4 % (9.3-17.3); White Blood Count 6.3 T/CUMM (4-12)
[2022-05-14 06:03] LABS: Alanine Aminotransferase 13 U/L (13-56); Albumin 2.8 G/DL (3.4-5.0); Alkaline Phosphatase 75 U/L (45-117); Aspartate Amino Transferase 8 U/L (0-37); Bilirubin,Total < 0.39 MG/DL (0.20-1.00); Blood Urea Nitrogen 71 MG/DL (7-18); Calcium 8.3 MG/DL (8.5-10.1); Carbon Dioxide 25 MMOL/L (21-32); Chloride 108 MMOL/L (98-107); Cholesterol 195 MG/DL (50-200); Glucose 98 MG/DL (74-106); HDL Cholesterol 32 MG/DL (40-60); Osmolality,Calculated 299.4 MOS/KG (273-304); Potassium 4.4 MMOL/L (3.5-5.1); Risk Ratio 6.09; Sodium 140 MMOL/L (136-145); Total Protein 7.2 G/DL (6.4-8.2); Triglycerides 151 MG/DL (2-150); VLDL Cholesterol 30.2 MG/DL
[2022-05-14] MEDS: INSULIN LISPRO 100 UNIT/ML SUBCUT SCH ×4 (07:56→21:10)
[2022-05-14] MEDS: carvediloL 25 MG TABLET PO SCH ×2 (09:17→21:04)
[2022-05-14] MEDS: ISOSORBIDE MONONITRATE 60 MG TABLET PO SCH ×2 (09:17→21:03)
[2022-05-14] MEDS: PANTOPRAZOLE 40 MG TABLET PO SCH (09:17)
[2022-05-14] MEDS: hydrALAZINE 25 MG TABLET PO SCH ×2 (09:17→21:03)
[2022-05-14] MEDS: ASPIRIN EC 81 MG TABLET PO SCH (09:17)
[2022-05-14] MEDS: SODIUM CHLORIDE 0.9% 1,000 ML IV SCH (09:59)
[2022-05-14] MEDS: FERRIC GLUCONATE COMPLEX 125 MG in SODIUM CHLORIDE 0.9% 100 ML IV SCH (09:59)
[2022-05-14] MEDS: cefTRIAXone 1,000 MG in SODIUM CHLORIDE 0.9% 100 ML IV SCH (15:37)
[2022-05-14] MEDS: WARFARIN 5 MG TABLET PO SCH (17:12)
[2022-05-14] MEDS: AMITRIPTYLINE 25 MG TABLET PO SCH (21:04)
[2022-05-14] MEDS: SIMVASTATIN 40 MG TABLET PO SCH (22:01)
[2022-05-15] MEDS: SODIUM CHLORIDE 0.9% 1,000 ML IV SCH (04:45)
[2022-05-15 06:28] LABS: Basophils % 0.2 % (0.0-0.8); Eosinophils # 0.1 10*3/uL (0.0-0.87); Eosinophils % 0.9 % (0.00-10.9); Hematocrit 22.2 VOL% (35.7-47.0); Hemoglobin 6.5 GM/DL (12.0-16.0); Immature Granulocytes % 0.5 %; Immature Granulocytes Absolute 0.03 #; Lymphocytes # 0.7 10*3/uL (1.4-4.0); Lymphocytes % 11.5 % (21.3-54.2); Mean Corpuscular HGB Conc 29.3 GM/DL (32-36); Mean Corpuscular Volume 92.1 FL (87-102); Mean Platelet Volume 11.1 FL (9.6-12.0); Monocytes # 0.8 10*3/uL (0.11-0.8); Neutrophils % 73.9 % (38.7-73.9); Platelet Count 184 T/CUMM (130-400); Red Blood Count 2.41 MC/CUMM (3.8-5.5); Red Cell Distribution Width 18.6 % (9.3-17.3); White Blood Count 5.8 T/CUMM (4-12)
[2022-05-15 06:34] LABS: INR 3.9; PT Patient Result 39.2 SECS (10.1-12.1)
[2022-05-15 07:20] LABS: Calcium 8.3 MG/DL (8.5-10.1); Potassium 4.4 MMOL/L (3.5-5.1)
[2022-05-15 07:22] LABS: Phosphorous 4.8 MG/DL (2.5-4.9); Uric Acid 11.1 MG/DL (2.6-6.0)
[2022-05-15] MEDS: carvediloL 25 MG TABLET PO SCH ×2 (09:12→21:02)
[2022-05-15] MEDS: ASPIRIN EC 81 MG TABLET PO SCH (09:12)
[2022-05-15] MEDS: hydrALAZINE 25 MG TABLET PO SCH ×2 (09:12→21:02)
[2022-05-15] MEDS: PANTOPRAZOLE 40 MG TABLET PO SCH (09:12)
[2022-05-15] MEDS: ISOSORBIDE MONONITRATE 60 MG TABLET PO SCH ×2 (09:12→21:02)
[2022-05-15] MEDS: INSULIN LISPRO 100 UNIT/ML SUBCUT SCH ×4 (09:13→21:03)
[2022-05-15] MEDS: HYDROmorphone 1 MG/1 ML SYRINGE IV PRN ×2 (09:15→21:02)
[2022-05-15] MEDS: FERRIC GLUCONATE COMPLEX 125 MG in SODIUM CHLORIDE 0.9% 100 ML IV SCH (10:43)
[2022-05-15] MEDS ORDERED: SODIUM CHLORIDE 0.9% 1,000 ML IV PRN (11:17)
[2022-05-15] MEDS: WARFARIN 5 MG TABLET PO SCH (19:29)
[2022-05-15] MEDS: LATANOPROST 0.005% OPH SOLN 2.5 ML BOTTLE BOTH EYES SCH (21:02)
[2022-05-15] MEDS: AMITRIPTYLINE 25 MG TABLET PO SCH (21:02)
[2022-05-15] MEDS: cefTRIAXone 1,000 MG in SODIUM CHLORIDE 0.9% 100 ML IV SCH (21:02)
[2022-05-15] MEDS: SIMVASTATIN 40 MG TABLET PO SCH (21:03)
[2022-05-16 05:22] LABS: Basophils % 0.2 % (0.0-0.8); Eosinophils % 0.3 % (0.00-10.9); Hematocrit 28.4 VOL% (35.7-47.0); Hemoglobin 8.5 GM/DL (12.0-16.0); Immature Granulocytes % 0.5 %; Immature Granulocytes Absolute 0.05 #; Lymphocytes # 0.4 10*3/uL (1.4-4.0); Lymphocytes % 4.6 % (21.3-54.2); Mean Corpuscular HGB Conc 29.9 GM/DL (32-36); Mean Platelet Volume 10.7 FL (9.6-12.0); Monocytes # 0.7 10*3/uL (0.11-0.8); Monocytes % 7.2 % (1.7-12.7); Neutrophils % 87.2 % (38.7-73.9); Platelet Count 207 T/CUMM (130-400); Red Blood Count 3.12 MC/CUMM (3.8-5.5); Red Cell Distribution Width 17.8 % (9.3-17.3); White Blood Count 9.3 T/CUMM (4-12)
[2022-05-16 05:36] LABS: Calcium 8.7 MG/DL (8.5-10.1); Osmolality,Calculated 301.4 MOS/KG (273-304)
[2022-05-16 05:43] LABS: INR 3.9; PT Patient Result 39.5 SECS (10.1-12.1)
[2022-05-16 06:07] LABS: Eosinophils 1 % (0-10); Lymphocytes 2 % (20-55); Platelet Estimate Adequate; Total Cells Counted 100
[2022-05-16] MEDS: SODIUM CHLORIDE 0.9% 1,000 ML IV SCH ×3 (08:21→09:37)
[2022-05-16] MEDS: FERRIC GLUCONATE COMPLEX 125 MG in SODIUM CHLORIDE 0.9% 100 ML IV SCH (09:36)
[2022-05-16] MEDS: PANTOPRAZOLE 40 MG TABLET PO SCH (09:37)
[2022-05-16] MEDS: INSULIN LISPRO 100 UNIT/ML SUBCUT SCH ×4 (09:37→21:36)
[2022-05-16] MEDS: carvediloL 25 MG TABLET PO SCH ×2 (09:37→21:35)
[2022-05-16] MEDS: ASPIRIN EC 81 MG TABLET PO SCH (09:37)
[2022-05-16] MEDS: hydrALAZINE 25 MG TABLET PO SCH ×2 (09:37→21:35)
[2022-05-16] MEDS: ISOSORBIDE MONONITRATE 60 MG TABLET PO SCH ×2 (09:37→21:35)
[2022-05-16] MEDS ORDERED: oxyCODONE/ACETAMINOPHEN 5-325 MG TABLET PO PRN (11:52)
[2022-05-16] MEDS: ERTAPENEM 500 MG in SODIUM CHLORIDE 0.9% 100 ML IV SCH (13:13)
[2022-05-16] MEDS ORDERED: DARBEPOETIN ALFA 40 MCG/ML VIAL SUBCUT SCH (18:00)
[2022-05-16] MEDS: SIMVASTATIN 40 MG TABLET PO SCH (21:35)
[2022-05-16] MEDS: GABAPENTIN 100 MG CAPSULE PO SCH (21:35)
[2022-05-16] MEDS: AMITRIPTYLINE 25 MG TABLET PO SCH (21:35)
[2022-05-16] MEDS: LATANOPROST 0.005% OPH SOLN 2.5 ML BOTTLE BOTH EYES SCH (21:36)
[2022-05-17] MEDS: SODIUM CHLORIDE 0.9% 1,000 ML IV SCH ×2 (00:34→12:46)
[2022-05-17 05:44] LABS: Basophils % 0.1 % (0.0-0.8); Eosinophils # 0.1 10*3/uL (0.0-0.87); Eosinophils % 1.1 % (0.00-10.9); Hematocrit 28.6 VOL% (35.7-47.0); Hemoglobin 8.5 GM/DL (12.0-16.0); Immature Granulocytes % 0.6 %; Immature Granulocytes Absolute 0.05 #; Lymphocytes # 0.7 10*3/uL (1.4-4.0); Lymphocytes % 8.1 % (21.3-54.2); Mean Corpuscular HGB Conc 29.7 GM/DL (32-36); Mean Corpuscular Volume 93.2 FL (87-102); Mean Platelet Volume 11.1 FL (9.6-12.0); Monocytes # 0.8 10*3/uL (0.11-0.8); Monocytes % 9.5 % (1.7-12.7); Neutrophils % 80.6 % (38.7-73.9); Platelet Count 229 T/CUMM (130-400); Red Blood Count 3.07 MC/CUMM (3.8-5.5); Red Cell Distribution Width 18.3 % (9.3-17.3)
[2022-05-17 05:52] LABS: PT Patient Result 40.3 SECS (10.1-12.1)
[2022-05-17 06:03] LABS: Calcium 8.6 MG/DL (8.5-10.1); Osmolality,Calculated 299.4 MOS/KG (273-304); Potassium 4.8 MMOL/L (3.5-5.1)
[2022-05-17 07:16] LABS: Total Protein 7.2 G/DL (6.4-8.2)
[2022-05-17] MEDS: INSULIN LISPRO 100 UNIT/ML SUBCUT SCH ×4 (07:47→21:24)
[2022-05-17] MEDS: carvediloL 25 MG TABLET PO SCH ×2 (09:41→21:23)
[2022-05-17] MEDS: PANTOPRAZOLE 40 MG TABLET PO SCH (09:41)
[2022-05-17] MEDS: ASPIRIN EC 81 MG TABLET PO SCH (09:41)
[2022-05-17] MEDS: hydrALAZINE 25 MG TABLET PO SCH ×2 (09:41→21:23)
[2022-05-17] MEDS: ISOSORBIDE MONONITRATE 60 MG TABLET PO SCH ×2 (09:41→21:23)
[2022-05-17] MEDS: FERRIC GLUCONATE COMPLEX 125 MG in SODIUM CHLORIDE 0.9% 100 ML IV SCH (09:42)
[2022-05-17] MEDS: ERTAPENEM 500 MG in SODIUM CHLORIDE 0.9% 100 ML IV SCH (13:01)
[2022-05-17] MEDS ORDERED: FUROSEMIDE 40 MG/4 ML VIAL IV ONE (13:51)
[2022-05-17 16:32] LABS: Calcium 8.5 MG/DL (8.5-10.1); Osmolality,Calculated 299.5 MOS/KG (273-304)
[2022-05-17] MEDS: SIMVASTATIN 40 MG TABLET PO SCH (21:23)
[2022-05-17] MEDS: GABAPENTIN 100 MG CAPSULE PO SCH (21:23)
[2022-05-17] MEDS: LATANOPROST 0.005% OPH SOLN 2.5 ML BOTTLE BOTH EYES SCH (21:23)
[2022-05-17] MEDS: AMITRIPTYLINE 25 MG TABLET PO SCH (21:23)
[2022-05-18 05:29] LABS: Basophils % 0.2 % (0.0-0.8); Eosinophils % 0.4 % (0.00-10.9); Hematocrit 28.7 VOL% (35.7-47.0); Hemoglobin 8.6 GM/DL (12.0-16.0); Immature Granulocytes % 0.6 %; Immature Granulocytes Absolute 0.06 #; Lymphocytes # 0.5 10*3/uL (1.4-4.0); Lymphocytes % 5.7 % (21.3-54.2); Monocytes # 0.8 10*3/uL (0.11-0.8); Monocytes % 8.6 % (1.7-12.7); Neutrophils % 84.5 % (38.7-73.9); Platelet Count 231 T/CUMM (130-400); Red Blood Count 3.12 MC/CUMM (3.8-5.5); Red Cell Distribution Width 18.5 % (9.3-17.3); White Blood Count 9.3 T/CUMM (4-12)
[2022-05-18 05:46] LABS: Alanine Aminotransferase 19 U/L (13-56); Albumin 2.6 G/DL (3.4-5.0); Alkaline Phosphatase 88 U/L (45-117); Aspartate Amino Transferase 14 U/L (0-37); Bilirubin,Total < 0.39 MG/DL (0.20-1.00); Blood Urea Nitrogen 74 MG/DL (7-18); Calcium 8.6 MG/DL (8.5-10.1); Carbon Dioxide 24 MMOL/L (21-32); Chloride 113 MMOL/L (98-107); Glucose 122 MG/DL (74-106); Osmolality,Calculated 305.1 MOS/KG (273-304); Potassium 4.9 MMOL/L (3.5-5.1); Sodium 142 MMOL/L (136-145); Total Protein 7.2 G/DL (6.4-8.2)
[2022-05-18] MEDS: INSULIN LISPRO 100 UNIT/ML SUBCUT SCH ×4 (07:39→21:02)
[2022-05-18] MEDS: carvediloL 25 MG TABLET PO SCH ×2 (08:54→21:02)
[2022-05-18] MEDS: hydrALAZINE 25 MG TABLET PO SCH ×2 (08:54→21:02)
[2022-05-18] MEDS: PANTOPRAZOLE 40 MG TABLET PO SCH (08:54)
[2022-05-18] MEDS: ISOSORBIDE MONONITRATE 60 MG TABLET PO SCH ×2 (08:54→21:02)
[2022-05-18] MEDS: ASPIRIN EC 81 MG TABLET PO SCH (08:54)
[2022-05-18] MEDS ORDERED: MAGNESIUM HYDROXIDE SUSP 30 ML UDCUP PO PRN (11:03)
[2022-05-18] MEDS ORDERED: traMADol 50 MG TABLET PO PRN (11:12)
[2022-05-18] MEDS ORDERED: FERRIC GLUCONATE COMPLEX 125 MG in SODIUM CHLORIDE 0.9% 100 ML IV SCH (12:00)
[2022-05-18] MEDS: FERRIC GLUCONATE COMPLEX 125 MG in SODIUM CHLORIDE 0.9% 100 ML IV SCH (12:01)
[2022-05-18 12:31] LABS: Bacteria,Urine Few /HPF (Few); Hyaline Casts,Urine 4 /LPF (0-3); Mucus,Urine Occasional /LPF (Occasional); Squamous Epithelial Cell,Urine Occasional /HPF (0-10)
[2022-05-18 12:32] LABS: Bilirubin,Urine Negative (Negative); Blood, Urine Small mg/dL (Negative); Glucose,Urine (UA) Negative (Negative); Ketones,Urine Negative (Negative); Nitrite,Urine Negative (Negative); Protein,Urine Negative (Negative); Urine Appearance Slightly Cloudy (Clear); Urine Color Yellow (Yellow); Urine Specific Gravity 1.015 (1.001-1.035); Urine Urobilinogen 0.2 eU/dL (<2.0); Urine pH 5.5 (4.5-8.0)
[2022-05-18 12:42] LABS: INR 3.5; PT Patient Result 35.5 SECS (10.1-12.1)
[2022-05-18] MEDS: ERTAPENEM 500 MG in SODIUM CHLORIDE 0.9% 100 ML IV SCH (13:38)
[2022-05-18] MEDS: FUROSEMIDE 40 MG/4 ML VIAL IV SCH (13:38)
[2022-05-18] MEDS ORDERED: VANCOMYCIN INJ 1,000 MG in SODIUM CHLORIDE 0.9% 250 ML IV ONE (16:00)
[2022-05-18] MEDS: POLYETHYLENE GLYCOL POWDER 17 GM PACK PO SCH (17:14)
[2022-05-18] MEDS: SIMVASTATIN 40 MG TABLET PO SCH (21:01)
[2022-05-18] MEDS: LATANOPROST 0.005% OPH SOLN 2.5 ML BOTTLE BOTH EYES SCH (21:06)
[2022-05-19 05:23] LABS: Basophils % 0.2 % (0.0-0.8); Eosinophils # 0.1 10*3/uL (0.0-0.87); Eosinophils % 0.7 % (0.00-10.9); Hematocrit 27.5 VOL% (35.7-47.0); Hemoglobin 8.2 GM/DL (12.0-16.0); Immature Granulocytes % 0.3 %; Immature Granulocytes Absolute 0.03 #; Lymphocytes # 0.6 10*3/uL (1.4-4.0); Lymphocytes % 7.3 % (21.3-54.2); Mean Corpuscular HGB Conc 29.8 GM/DL (32-36); Mean Corpuscular Volume 91.7 FL (87-102); Monocytes # 0.7 10*3/uL (0.11-0.8); Monocytes % 8.2 % (1.7-12.7); Neutrophils % 83.3 % (38.7-73.9); Platelet Count 226 T/CUMM (130-400); Red Cell Distribution Width 18.5 % (9.3-17.3); White Blood Count 8.6 T/CUMM (4-12)
[2022-05-19 05:32] LABS: INR 3.1; PT Patient Result 31.5 SECS (10.1-12.1)
[2022-05-19 06:05] LABS: Calcium 8.7 MG/DL (8.5-10.1); Osmolality,Calculated 305.1 MOS/KG (273-304)
[2022-05-19 06:57] LABS: Immunoglobulin A (Chem) 382 MG/DL (70-400); Immunoglobulin G (Chem) 1300 MG/DL (700-1600); Immunoglobulin M (Chem) 70 MG/DL (40-230); Random Urine Protein (Bench) 49 MG/DL (<11.9); Total Protein (Chem) 7.2 G/DL (6.4-8.3)
[2022-05-19 08:27] LABS: Albumin (SPE) Rel % 55.3 %; Alpha 1 (SPE) 0.4 G/DL (0.1-0.4); Alpha 1 (SPE) Rel % 5.1 %; Alpha 2 (SPE) 0.7 G/DL (0.4-1.0); Alpha 2 (SPE) Rel % 10.4 %; Beta (SPE) 0.9 G/DL (0.5-1.1); Beta (SPE) Rel % 13.1 %; Gamma (SPE) 1.2 G/DL (0.7-1.7); Gamma (SPE) Rel % 16.1 %
[2022-05-19] MEDS: FUROSEMIDE 40 MG/4 ML VIAL IV SCH (09:55)
[2022-05-19] MEDS: POLYETHYLENE GLYCOL POWDER 17 GM PACK PO SCH (09:55)
[2022-05-19] MEDS: ISOSORBIDE MONONITRATE 60 MG TABLET PO SCH ×2 (09:55→21:21)
[2022-05-19] MEDS: ASPIRIN EC 81 MG TABLET PO SCH (09:55)
[2022-05-19] MEDS: carvediloL 25 MG TABLET PO SCH ×2 (09:55→21:21)
[2022-05-19] MEDS: PANTOPRAZOLE 40 MG TABLET PO SCH (09:56)
[2022-05-19] MEDS: INSULIN LISPRO 100 UNIT/ML SUBCUT SCH ×4 (09:56→20:05)
[2022-05-19] MEDS: hydrALAZINE 25 MG TABLET PO SCH ×2 (09:58→21:21)
[2022-05-19] MEDS: ERTAPENEM 500 MG in SODIUM CHLORIDE 0.9% 100 ML IV SCH (11:24)
[2022-05-19] MEDS ORDERED: NICOTINE 21 MG/24 HR PATCH TRANSDERM PRN (12:33)
[2022-05-19] MEDS: LATANOPROST 0.005% OPH SOLN 2.5 ML BOTTLE BOTH EYES SCH (21:23)
[2022-05-20 05:46] LABS: Basophils % 0.2 % (0.0-0.8); Eosinophils % 0.5 % (0.00-10.9); Hematocrit 27.6 VOL% (35.7-47.0); Hemoglobin 8.4 GM/DL (12.0-16.0); Immature Granulocytes % 0.6 %; Immature Granulocytes Absolute 0.05 #; Lymphocytes # 0.6 10*3/uL (1.4-4.0); Lymphocytes % 6.9 % (21.3-54.2); Mean Corpuscular HGB Conc 30.4 GM/DL (32-36); Mean Corpuscular Volume 91.1 FL (87-102); Mean Platelet Volume 10.7 FL (9.6-12.0); Monocytes # 0.6 10*3/uL (0.11-0.8); Monocytes % 7.1 % (1.7-12.7); Neutrophils % 84.7 % (38.7-73.9); Platelet Count 234 T/CUMM (130-400); Red Blood Count 3.03 MC/CUMM (3.8-5.5); Red Cell Distribution Width 18.6 % (9.3-17.3); White Blood Count 8.6 T/CUMM (4-12)
[2022-05-20 06:01] LABS: INR 3.6; PT Patient Result 36.6 SECS (10.1-12.1)
[2022-05-20 06:11] LABS: Albumin 2.3 G/DL (3.4-5.0); Bilirubin,Total 0.4 MG/DL (0.20-1.00); Calcium 8.5 MG/DL (8.5-10.1); Osmolality,Calculated 310.8 MOS/KG (273-304); Potassium 5.1 MMOL/L (3.5-5.1); Total Protein 6.8 G/DL (6.4-8.2)
[2022-05-20] MEDS: INSULIN LISPRO 100 UNIT/ML SUBCUT SCH ×2 (08:15→12:01)
[2022-05-20] MEDS ORDERED: CHOLECALCIFEROL 1,000 UNIT TABLET PO SCH (09:00)
[2022-05-20] MEDS: ASPIRIN EC 81 MG TABLET PO SCH (09:03)
[2022-05-20] MEDS: ISOSORBIDE MONONITRATE 60 MG TABLET PO SCH (09:03)
[2022-05-20] MEDS: carvediloL 25 MG TABLET PO SCH (09:03)
[2022-05-20] MEDS: PANTOPRAZOLE 40 MG TABLET PO SCH (09:03)
[2022-05-20] MEDS: POLYETHYLENE GLYCOL POWDER 17 GM PACK PO SCH (09:04)
[2022-05-20] MEDS: hydrALAZINE 25 MG TABLET PO SCH (09:04)
[2022-05-20] MEDS: FUROSEMIDE 40 MG/4 ML VIAL IV SCH (09:04)
[2022-05-20 10:36] LABS: Lambda Free Light Chain 6.75 mg/dL
[2022-05-20] MEDS: ERTAPENEM 500 MG in SODIUM CHLORIDE 0.9% 100 ML IV SCH (12:17)
[2022-05-20 12:28] VITALS: BP 159/67
== END 2022-05-20 15:49 | DRG 682 ==
LOC: N.EDINP 11:50 → N.ED 11:50 → N.5E 17:49 → SUATTDRO 05-15 11:19
PROVIDERS: ADMIT Internal Medicine; ATTEND Internal Medicine

== ENCOUNTER 2022-06-18 03:18 | Inpatient (IN) ==
[2022-06-18 04:25] LABS: Basophils % 0.2 % (0.0-0.8); Eosinophils # 0.1 10*3/uL (0.0-0.87); Eosinophils % 1.8 % (0.00-10.9); Hematocrit 22.8 VOL% (35.7-47.0); Hemoglobin 6.5 GM/DL (12.0-16.0); Immature Granulocytes % 0.4 %; Immature Granulocytes Absolute 0.02 #; Lymphocytes # 0.5 10*3/uL (1.4-4.0); Lymphocytes % 10.8 % (21.3-54.2); Mean Corpuscular HGB Conc 28.5 GM/DL (32-36); Mean Corpuscular Volume 92.3 FL (87-102); Mean Platelet Volume 11.6 FL (9.6-12.0); Monocytes # 0.5 10*3/uL (0.11-0.8); Monocytes % 9.8 % (1.7-12.7); NRBC # 0.03 10*3/uL; Platelet Count 146 T/CUMM (130-400); Red Blood Count 2.47 MC/CUMM (3.8-5.5); Red Cell Distribution Width 20.3 % (9.3-17.3); White Blood Count 4.9 T/CUMM (4-12)
[2022-06-18 04:44] LABS: PT Patient Result 55.6 SECS (10.1-12.1)
[2022-06-18 04:52] LABS: INR 5.7
[2022-06-18] MEDS ORDERED: FUROSEMIDE 40 MG/4 ML VIAL IV STA (04:58)
[2022-06-18 04:59] LABS: Alanine Aminotransferase 41 U/L (13-56); Albumin 2.7 G/DL (3.4-5.0); Alkaline Phosphatase 73 U/L (45-117); Aspartate Amino Transferase 19 U/L (0-37); Bilirubin,Total < 0.39 MG/DL (0.20-1.00); Blood Urea Nitrogen 63 MG/DL (7-18); Calcium 8.2 MG/DL (8.5-10.1); Carbon Dioxide 26 MMOL/L (21-32); Chloride 113 MMOL/L (98-107); Glucose 111 MG/DL (74-106); Osmolality,Calculated 306.7 MOS/KG (273-304); Potassium 4.9 MMOL/L (3.5-5.1); Sodium 145 MMOL/L (136-145)
[2022-06-18] MEDS ORDERED: MAGNESIUM SULF RIDER 4 GM/100 ML PREMIX IV PRN (04:59)
[2022-06-18] MEDS ORDERED: ONDANSETRON 4 MG/2 ML VIAL IV PRN (04:59)
[2022-06-18] MEDS ORDERED: MAGNESIUM SULF RIDER 2 GM/50 ML PREMIX IV PRN (04:59)
[2022-06-18] MEDS ORDERED: SODIUM CHLORIDE 0.9% 1,000 ML IV PRN (05:06)
[2022-06-18] MEDS ORDERED: FUROSEMIDE 40 MG/4 ML VIAL IV SCH (08:00)
[2022-06-18] MEDS ORDERED: NITROGLYCERIN SL 0.4 MG TABLET SL PRN (10:00)
[2022-06-18] MEDS: ACETAMINOPHEN 325 MG TABLET PO PRN (10:23)
[2022-06-18] MEDS ORDERED: SIMVASTATIN 40 MG TABLET PO SCH (10:30)
[2022-06-18] MEDS: hydrALAZINE 25 MG TABLET PO SCH ×2 (10:36→21:55)
[2022-06-18] MEDS: carvediloL 25 MG TABLET PO SCH ×2 (10:36→21:55)
[2022-06-18] MEDS: ISOSORBIDE MONONITRATE 60 MG TABLET PO SCH ×2 (10:36→21:55)
[2022-06-18] MEDS: FUROSEMIDE 40 MG TABLET PO SCH (18:21)
[2022-06-19 03:00] LABS: Hematocrit 25.7 VOL% (35.7-47.0)
[2022-06-19 06:29] LABS: Basophils % 0.3 % (0.0-0.8); Eosinophils # 0.1 10*3/uL (0.0-0.87); Hematocrit 26.1 VOL% (35.7-47.0); Hemoglobin 8.2 GM/DL (12.0-16.0); Immature Granulocytes % 0.5 %; Immature Granulocytes Absolute 0.03 #; Lymphocytes # 0.4 10*3/uL (1.4-4.0); Lymphocytes % 6.7 % (21.3-54.2); Mean Corpuscular HGB Conc 31.4 GM/DL (32-36); Mean Corpuscular Volume 89.7 FL (87-102); Mean Platelet Volume 12.2 FL (9.6-12.0); Monocytes # 0.4 10*3/uL (0.11-0.8); Monocytes % 6.1 % (1.7-12.7); Neutrophils % 85.4 % (38.7-73.9); Platelet Count 131 T/CUMM (130-400); Red Blood Count 2.91 MC/CUMM (3.8-5.5); Red Cell Distribution Width 19.2 % (9.3-17.3); White Blood Count 6.2 T/CUMM (4-12)
[2022-06-19 06:42] LABS: INR 5.9
[2022-06-19 06:43] LABS: Albumin 2.8 G/DL (3.4-5.0); Bilirubin,Total 0.5 MG/DL (0.20-1.00); Osmolality,Calculated 306.8 MOS/KG (273-304); Potassium 4.2 MMOL/L (3.5-5.1); Total Protein 6.3 G/DL (6.4-8.2)
[2022-06-19] MEDS ORDERED: PHYTONADIONE 10 MG/1 ML AMP SUBCUT ONE (08:12)
[2022-06-19] MEDS: ISOSORBIDE MONONITRATE 60 MG TABLET PO SCH ×2 (11:56→23:37)
[2022-06-19] MEDS: ACETAMINOPHEN 325 MG TABLET PO PRN (11:56)
[2022-06-19] MEDS: FUROSEMIDE 40 MG TABLET PO SCH ×2 (11:56→16:56)
[2022-06-19] MEDS: carvediloL 25 MG TABLET PO SCH ×2 (11:59→23:37)
[2022-06-19] MEDS: hydrALAZINE 25 MG TABLET PO SCH ×2 (11:59→23:37)
[2022-06-19] MEDS: DILTIAZEM CD 120 MG CAPSULE PO SCH (11:59)
[2022-06-19] MEDS: PANTOPRAZOLE 40 MG VIAL IV SCH ×2 (12:00→22:56)
[2022-06-19] MEDS ORDERED: SODIUM CHLORIDE 0.9% 1,000 ML IV PRN (13:52)
[2022-06-19] MEDS: ROSUVASTATIN 20 MG TABLET PO SCH (23:37)
[2022-06-20 05:50] LABS: Basophils % 0.2 % (0.0-0.8); Eosinophils # 0.1 10*3/uL (0.0-0.87); Eosinophils % 0.8 % (0.00-10.9); Hematocrit 25.7 VOL% (35.7-47.0); Hemoglobin 7.8 GM/DL (12.0-16.0); Immature Granulocytes % 0.7 %; Immature Granulocytes Absolute 0.04 #; Lymphocytes # 0.5 10*3/uL (1.4-4.0); Lymphocytes % 7.6 % (21.3-54.2); Mean Corpuscular HGB Conc 30.4 GM/DL (32-36); Mean Corpuscular Volume 92.4 FL (87-102); Mean Platelet Volume 10.7 FL (9.6-12.0); Monocytes # 0.4 10*3/uL (0.11-0.8); Monocytes % 6.4 % (1.7-12.7); Neutrophils % 84.3 % (38.7-73.9); Platelet Count 139 T/CUMM (130-400); Red Blood Count 2.78 MC/CUMM (3.8-5.5); Red Cell Distribution Width 19.2 % (9.3-17.3); White Blood Count 5.9 T/CUMM (4-12)
[2022-06-20 06:02] LABS: Calcium 7.8 MG/DL (8.5-10.1); Osmolality,Calculated 307.6 MOS/KG (273-304); Potassium 4.1 MMOL/L (3.5-5.1)
[2022-06-20 06:14] LABS: INR 1.9; PT Patient Result 20.3 SECS (10.1-12.1)
[2022-06-20] MEDS: carvediloL 25 MG TABLET PO SCH ×2 (06:18→23:17)
[2022-06-20 06:41] LABS: Anisocytosis Slight
[2022-06-20 06:42] LABS: Platelet Estimate Adequate; Target Cells Few
[2022-06-20] MEDS: SODIUM CHLORIDE 0.9% 1,000 ML IV SCH (07:55)
[2022-06-20] MEDS ORDERED: LIDOCAINE 2% 5 ML VIAL ONE (11:01)
[2022-06-20] MEDS ORDERED: ETOMIDATE 20 MG/10 ML VIAL IV ONE (11:01)
[2022-06-20] MEDS: PANTOPRAZOLE 40 MG VIAL IV SCH ×2 (12:19→22:55)
[2022-06-20] MEDS: FUROSEMIDE 40 MG TABLET PO SCH ×2 (12:20→15:42)
[2022-06-20] MEDS: DILTIAZEM CD 120 MG CAPSULE PO SCH (12:20)
[2022-06-20] MEDS: ISOSORBIDE MONONITRATE 60 MG TABLET PO SCH ×2 (12:20→23:17)
[2022-06-20] MEDS: hydrALAZINE 25 MG TABLET PO SCH ×2 (12:20→23:17)
[2022-06-20] MEDS: ENOXAPARIN 100 MG/ML SYRINGE SUBCUT SCH (15:43)
[2022-06-20] MEDS: WARFARIN 4 MG TABLET PO SCH (18:29)
[2022-06-20] MEDS: ROSUVASTATIN 20 MG TABLET PO SCH (23:17)
[2022-06-21 05:47] LABS: Basophils % 0.2 % (0.0-0.8); Eosinophils # 0.1 10*3/uL (0.0-0.87); Hematocrit 27.2 VOL% (35.7-47.0); Hemoglobin 8.2 GM/DL (12.0-16.0); Immature Granulocytes % 0.7 %; Immature Granulocytes Absolute 0.04 #; Lymphocytes # 0.5 10*3/uL (1.4-4.0); Lymphocytes % 8.4 % (21.3-54.2); Mean Corpuscular HGB Conc 30.1 GM/DL (32-36); Mean Corpuscular Volume 93.8 FL (87-102); Mean Platelet Volume 12.3 FL (9.6-12.0); Monocytes # 0.5 10*3/uL (0.11-0.8); Monocytes % 7.9 % (1.7-12.7); Neutrophils % 81.8 % (38.7-73.9); Platelet Count 161 T/CUMM (130-400); Red Cell Distribution Width 19.6 % (9.3-17.3)
[2022-06-21 05:49] LABS: INR 1.4; PT Patient Result 15.6 SECS (10.1-12.1)
[2022-06-21 05:57] LABS: Calcium 8.1 MG/DL (8.5-10.1); Osmolality,Calculated 301.8 MOS/KG (273-304); Potassium 3.6 MMOL/L (3.5-5.1)
[2022-06-21] MEDS: SODIUM CHLORIDE 0.9% 1,000 ML IV SCH (07:39)
[2022-06-21] MEDS ORDERED: WARFARIN 5 MG TABLET PO ONE (08:26)
[2022-06-21] MEDS: carvediloL 25 MG TABLET PO SCH ×2 (09:48→22:27)
[2022-06-21] MEDS: FUROSEMIDE 40 MG TABLET PO SCH ×2 (09:48→17:09)
[2022-06-21] MEDS: PANTOPRAZOLE 40 MG VIAL IV SCH ×2 (09:48→21:39)
[2022-06-21] MEDS: hydrALAZINE 25 MG TABLET PO SCH ×2 (09:48→22:26)
[2022-06-21] MEDS: ISOSORBIDE MONONITRATE 60 MG TABLET PO SCH ×2 (09:48→22:27)
[2022-06-21] MEDS: DILTIAZEM CD 120 MG CAPSULE PO SCH (09:48)
[2022-06-21] MEDS ORDERED: MAGNESIUM SULF RIDER 2 GM/50 ML PREMIX IV ONE (12:02)
[2022-06-21] MEDS: ENOXAPARIN 100 MG/ML SYRINGE SUBCUT SCH (13:15)
[2022-06-21] MEDS: WARFARIN 4 MG TABLET PO SCH (17:09)
[2022-06-21] MEDS: MELATONIN 3 MG TABLET PO PRN (22:27)
[2022-06-21] MEDS: ROSUVASTATIN 20 MG TABLET PO SCH (22:27)
[2022-06-22 05:29] LABS: INR 1.3; PT Patient Result 14.1 SECS (10.1-12.1)
[2022-06-22 05:30] LABS: Basophils % 0.1 % (0.0-0.8); Eosinophils # 0.1 10*3/uL (0.0-0.87); Eosinophils % 0.9 % (0.00-10.9); Hematocrit 26.8 VOL% (35.7-47.0); Hemoglobin 7.9 GM/DL (12.0-16.0); Immature Granulocytes % 0.4 %; Immature Granulocytes Absolute 0.03 #; Lymphocytes # 0.5 10*3/uL (1.4-4.0); Mean Corpuscular HGB Conc 29.5 GM/DL (32-36); Mean Corpuscular Volume 94.7 FL (87-102); Mean Platelet Volume 11.8 FL (9.6-12.0); Monocytes # 0.5 10*3/uL (0.11-0.8); Monocytes % 6.6 % (1.7-12.7); Platelet Count 144 T/CUMM (130-400); Red Blood Count 2.83 MC/CUMM (3.8-5.5); Red Cell Distribution Width 19.6 % (9.3-17.3); White Blood Count 6.8 T/CUMM (4-12)
[2022-06-22 05:32] LABS: Calcium 8.3 MG/DL (8.5-10.1); Osmolality,Calculated 303.6 MOS/KG (273-304); Potassium 3.5 MMOL/L (3.5-5.1)
[2022-06-22] MEDS ORDERED: WARFARIN 5 MG TABLET PO ONE (09:18)
[2022-06-22] MEDS: PANTOPRAZOLE 40 MG VIAL IV SCH ×2 (09:57→21:26)
[2022-06-22] MEDS: FUROSEMIDE 40 MG TABLET PO SCH ×2 (09:57→15:48)
[2022-06-22] MEDS: carvediloL 25 MG TABLET PO SCH ×2 (09:57→21:01)
[2022-06-22] MEDS: ISOSORBIDE MONONITRATE 60 MG TABLET PO SCH ×2 (09:57→21:01)
[2022-06-22] MEDS: DILTIAZEM CD 120 MG CAPSULE PO SCH (09:57)
[2022-06-22] MEDS: ENOXAPARIN 100 MG/ML SYRINGE SUBCUT SCH (15:48)
[2022-06-22] MEDS: WARFARIN 4 MG TABLET PO SCH (17:56)
[2022-06-22] MEDS: MELATONIN 3 MG TABLET PO PRN (21:00)
[2022-06-22] MEDS: ROSUVASTATIN 20 MG TABLET PO SCH (21:00)
[2022-06-23 05:02] LABS: Basophils % 0.2 % (0.0-0.8); Eosinophils % 0.3 % (0.00-10.9); Hematocrit 26.3 VOL% (35.7-47.0); Hemoglobin 7.7 GM/DL (12.0-16.0); Immature Granulocytes % 0.5 %; Immature Granulocytes Absolute 0.03 #; Lymphocytes # 0.5 10*3/uL (1.4-4.0); Lymphocytes % 7.3 % (21.3-54.2); Mean Corpuscular HGB Conc 29.3 GM/DL (32-36); Mean Corpuscular Volume 95.3 FL (87-102); Mean Platelet Volume 12.3 FL (9.6-12.0); Monocytes # 0.5 10*3/uL (0.11-0.8); Monocytes % 7.2 % (1.7-12.7); Neutrophils % 84.5 % (38.7-73.9); Platelet Count 141 T/CUMM (130-400); Red Blood Count 2.76 MC/CUMM (3.8-5.5); Red Cell Distribution Width 19.9 % (9.3-17.3); White Blood Count 6.3 T/CUMM (4-12)
[2022-06-23 05:13] LABS: INR 1.7
[2022-06-23 05:19] LABS: Calcium 8.1 MG/DL (8.5-10.1); Osmolality,Calculated 306.3 MOS/KG (273-304); Potassium 3.4 MMOL/L (3.5-5.1)
[2022-06-23] MEDS: carvediloL 25 MG TABLET PO SCH ×2 (08:14→22:13)
[2022-06-23] MEDS: PANTOPRAZOLE 40 MG VIAL IV SCH ×2 (08:14→22:31)
[2022-06-23] MEDS: FUROSEMIDE 40 MG TABLET PO SCH (08:15)
[2022-06-23] MEDS: ISOSORBIDE MONONITRATE 60 MG TABLET PO SCH ×2 (08:15→22:13)
[2022-06-23] MEDS: DILTIAZEM CD 120 MG CAPSULE PO SCH (08:16)
[2022-06-23] MEDS: SODIUM CHLORIDE 0.9% 1,000 ML IV SCH ×2 (08:17→08:53)
[2022-06-23] MEDS ORDERED: POTASSIUM CHLORIDE 20 MEQ TABLET PO ONE (09:34)
[2022-06-23] MEDS: ENOXAPARIN 100 MG/ML SYRINGE SUBCUT SCH (13:29)
[2022-06-23] MEDS ORDERED: SODIUM CHLORIDE 0.45% 500 ML IV ONE (13:45)
[2022-06-23 14:33] LABS: Alanine Aminotransferase 37 U/L (13-56); Albumin 2.9 G/DL (3.4-5.0); Alkaline Phosphatase 66 U/L (45-117); Aspartate Amino Transferase 17 U/L (0-37); Bilirubin,Indirect 0.2 MG/DL (0.0-1.0); Bilirubin,Total < 0.39 MG/DL (0.20-1.00); Total Protein 6.3 G/DL (6.4-8.2)
[2022-06-23] MEDS: LACTULOSE 20 GM/30 ML UDCUP PO SCH ×2 (14:49→22:16)
[2022-06-23] MEDS: ASPIRIN CHEW 81 MG TABLET PO SCH (14:49)
[2022-06-23] MEDS: WARFARIN 4 MG TABLET PO SCH (18:44)
[2022-06-23 18:49] LABS: Bilirubin,Urine Negative (Negative); Blood, Urine Trace mg/dL (Negative); Glucose,Urine (UA) Negative (Negative); Hyaline Casts,Urine 7 /LPF (0-3); Ketones,Urine Negative (Negative); Mucus,Urine Occasional /LPF (Occasional); Nitrite,Urine Negative (Negative); Protein,Urine 30 mg/dL (Negative); RBC,Urine 19 /HPF (0-4); Squamous Epithelial Cell,Urine Occasional /HPF (0-10); Urine Appearance Clear (Clear); Urine Color Yellow (Yellow); Urine Specific Gravity 1.015 (1.001-1.035); Urine pH 5.5 (4.5-8.0)
[2022-06-23 18:50] LABS: Urine Urobilinogen 0.2 eU/dL (<2.0)
[2022-06-23] MEDS: MELATONIN 3 MG TABLET PO PRN (22:13)
[2022-06-23] MEDS: ROSUVASTATIN 20 MG TABLET PO SCH (22:13)
[2022-06-24 05:29] LABS: Basophils % 0.2 % (0.0-0.8); Eosinophils # 0.1 10*3/uL (0.0-0.87); Eosinophils % 1.1 % (0.00-10.9); Hematocrit 26.1 VOL% (35.7-47.0); Hemoglobin 7.7 GM/DL (12.0-16.0); Immature Granulocytes % 0.5 %; Immature Granulocytes Absolute 0.03 #; Lymphocytes # 0.5 10*3/uL (1.4-4.0); Lymphocytes % 8.7 % (21.3-54.2); Mean Corpuscular HGB Conc 29.5 GM/DL (32-36); Mean Corpuscular Volume 95.6 FL (87-102); Mean Platelet Volume 11.8 FL (9.6-12.0); Monocytes # 0.4 10*3/uL (0.11-0.8); Monocytes % 7.3 % (1.7-12.7); Neutrophils % 82.2 % (38.7-73.9); Platelet Count 133 T/CUMM (130-400); Red Blood Count 2.73 MC/CUMM (3.8-5.5); Red Cell Distribution Width 19.9 % (9.3-17.3); White Blood Count 5.6 T/CUMM (4-12)
[2022-06-24 05:51] LABS: Calcium 7.9 MG/DL (8.5-10.1); Osmolality,Calculated 298.8 MOS/KG (273-304); Potassium 3.8 MMOL/L (3.5-5.1)
[2022-06-24 08:09] LABS: INR 2.6; PT Patient Result 26.4 SECS (10.1-12.1)
[2022-06-24] MEDS ORDERED: SOTALOL 80 MG TABLET PO ONE (09:45)
[2022-06-24] MEDS: ISOSORBIDE MONONITRATE 60 MG TABLET PO SCH ×2 (10:53→21:31)
[2022-06-24] MEDS: ASPIRIN CHEW 81 MG TABLET PO SCH (10:53)
[2022-06-24] MEDS: ACETAMINOPHEN 325 MG TABLET PO PRN (10:54)
[2022-06-24] MEDS: PANTOPRAZOLE 40 MG VIAL IV SCH ×2 (10:57→21:02)
[2022-06-24] MEDS: cefTRIAXone 2,000 MG in SODIUM CHLORIDE 0.9% 100 ML IV SCH (11:01)
[2022-06-24] MEDS: DILTIAZEM CD 120 MG CAPSULE PO SCH (12:12)
[2022-06-24] MEDS: LACTULOSE 20 GM/30 ML UDCUP PO SCH (12:13)
[2022-06-24] MEDS: carvediloL 25 MG TABLET PO SCH (12:13)
[2022-06-24] MEDS: WARFARIN 4 MG TABLET PO SCH (18:37)
[2022-06-24] MEDS: SODIUM CHLORIDE 0.9% 1,000 ML IV SCH (18:38)
[2022-06-24] MEDS: ROSUVASTATIN 20 MG TABLET PO SCH (21:31)
[2022-06-24] MEDS: MELATONIN 3 MG TABLET PO PRN (21:31)
[2022-06-25 05:06] LABS: Basophils % 0.3 % (0.0-0.8); Eosinophils % 0.3 % (0.00-10.9); Hematocrit 27.7 VOL% (35.7-47.0); Hemoglobin 8.4 GM/DL (12.0-16.0); Immature Granulocytes % 0.6 %; Immature Granulocytes Absolute 0.04 #; Lymphocytes # 0.7 10*3/uL (1.4-4.0); Lymphocytes % 9.5 % (21.3-54.2); Mean Corpuscular HGB Conc 30.3 GM/DL (32-36); Mean Corpuscular Volume 93.9 FL (87-102); Mean Platelet Volume 12.8 FL (9.6-12.0); Monocytes # 0.5 10*3/uL (0.11-0.8); Monocytes % 7.7 % (1.7-12.7); NRBC # 0.04 10*3/uL; Neutrophils % 81.6 % (38.7-73.9); Platelet Count 169 T/CUMM (130-400); Red Blood Count 2.95 MC/CUMM (3.8-5.5); Red Cell Distribution Width 20.2 % (9.3-17.3)
[2022-06-25 05:21] LABS: INR 2.8; PT Patient Result 23.2 SECS (10.1-12.1)
[2022-06-25 05:26] LABS: Calcium 8.1 MG/DL (8.5-10.1); Osmolality,Calculated 301.6 MOS/KG (273-304); Potassium 3.9 MMOL/L (3.5-5.1)
[2022-06-25] MEDS: cefTRIAXone 2,000 MG in SODIUM CHLORIDE 0.9% 100 ML IV SCH (07:39)
[2022-06-25] MEDS ORDERED: MAGNESIUM SULF RIDER 2 GM/50 ML PREMIX IV ONE (07:43)
[2022-06-25] MEDS: ASPIRIN CHEW 81 MG TABLET PO SCH (08:14)
[2022-06-25] MEDS: ISOSORBIDE MONONITRATE 60 MG TABLET PO SCH ×2 (08:14→21:21)
[2022-06-25] MEDS: PANTOPRAZOLE 40 MG VIAL IV SCH ×2 (08:15→21:27)
[2022-06-25] MEDS ORDERED: DILTIAZEM CD 120 MG CAPSULE PO SCH (11:00)
[2022-06-25] MEDS: FUROSEMIDE 40 MG/4 ML VIAL IV SCH ×2 (13:01→18:56)
[2022-06-25] MEDS ORDERED: METOPROLOL TARTRATE 5 MG/5 ML VIAL IV ONE (13:54)
[2022-06-25] MEDS ORDERED: SOTALOL 80 MG TABLET PO ONE ×2 (14:49→14:51)
[2022-06-25] MEDS ORDERED: FUROSEMIDE 40 MG/4 ML VIAL IV ONE (18:33)
[2022-06-25] MEDS: WARFARIN 4 MG TABLET PO SCH (18:55)
[2022-06-25] MEDS: ROSUVASTATIN 20 MG TABLET PO SCH (21:21)
[2022-06-25] MEDS: MELATONIN 3 MG TABLET PO PRN (21:21)
[2022-06-26 07:40] LABS: Basophils % 0.2 % (0.0-0.8); Eosinophils % 0.5 % (0.00-10.9); Hematocrit 28.2 VOL% (35.7-47.0); Hemoglobin 8.5 GM/DL (12.0-16.0); Immature Granulocytes % 0.4 %; Immature Granulocytes Absolute 0.03 #; Lymphocytes # 0.7 10*3/uL (1.4-4.0); Lymphocytes % 8.4 % (21.3-54.2); Mean Corpuscular HGB Conc 30.1 GM/DL (32-36); Mean Corpuscular Volume 94.9 FL (87-102); Mean Platelet Volume 11.7 FL (9.6-12.0); Monocytes # 0.6 10*3/uL (0.11-0.8); Monocytes % 7.6 % (1.7-12.7); NRBC # 0.03 10*3/uL; Neutrophils % 82.9 % (38.7-73.9); Platelet Count 167 T/CUMM (130-400); Red Blood Count 2.97 MC/CUMM (3.8-5.5); Red Cell Distribution Width 20.7 % (9.3-17.3); White Blood Count 8.4 T/CUMM (4-12)
[2022-06-26 07:49] LABS: PT Patient Result 30.8 SECS (10.1-12.1)
[2022-06-26 07:56] LABS: Calcium 8.4 MG/DL (8.5-10.1); Potassium 3.9 MMOL/L (3.5-5.1)
[2022-06-26] MEDS ORDERED: SOTALOL 80 MG TABLET PO ONE (09:00)
[2022-06-26] MEDS: cefTRIAXone 2,000 MG in SODIUM CHLORIDE 0.9% 100 ML IV SCH (09:06)
[2022-06-26] MEDS: PANTOPRAZOLE 40 MG VIAL IV SCH ×2 (09:06→21:10)
[2022-06-26] MEDS: ISOSORBIDE MONONITRATE 60 MG TABLET PO SCH ×2 (09:07→21:10)
[2022-06-26] MEDS: ASPIRIN CHEW 81 MG TABLET PO SCH (09:07)
[2022-06-26] MEDS: SOTALOL 80 MG TABLET PO SCH (09:07)
[2022-06-26] MEDS: FUROSEMIDE 40 MG/4 ML VIAL IV SCH ×2 (10:16→15:46)
[2022-06-26] MEDS: carvediloL 12.5 MG TABLET PO SCH ×2 (10:16→21:10)
[2022-06-26] MEDS: ERTAPENEM 500 MG in SODIUM CHLORIDE 0.9% 100 ML IV SCH (15:45)
[2022-06-26] MEDS: WARFARIN 4 MG TABLET PO SCH (17:13)
[2022-06-26] MEDS: MELATONIN 3 MG TABLET PO PRN (21:10)
[2022-06-27 05:53] LABS: Basophils % 0.1 % (0.0-0.8); Hematocrit 26.3 VOL% (35.7-47.0); Hemoglobin 7.6 GM/DL (12.0-16.0); Immature Granulocytes % 0.6 %; Immature Granulocytes Absolute 0.04 #; Lymphocytes # 0.7 10*3/uL (1.4-4.0); Lymphocytes % 9.7 % (21.3-54.2); Mean Corpuscular HGB Conc 28.9 GM/DL (32-36); Monocytes # 0.5 10*3/uL (0.11-0.8); Monocytes % 6.9 % (1.7-12.7); Neutrophils % 82.7 % (38.7-73.9); Platelet Count 138 T/CUMM (130-400); Red Blood Count 2.71 MC/CUMM (3.8-5.5); Red Cell Distribution Width 20.3 % (9.3-17.3); White Blood Count 6.7 T/CUMM (4-12)
[2022-06-27 06:03] LABS: INR 3.9; PT Patient Result 38.9 SECS (10.1-12.1)
[2022-06-27 06:08] LABS: Calcium 7.7 MG/DL (8.5-10.1); Osmolality,Calculated 305.4 MOS/KG (273-304); Potassium 3.5 MMOL/L (3.5-5.1)
[2022-06-27] MEDS ORDERED: DILTIAZEM CD 120 MG CAPSULE PO SCH (09:00)
[2022-06-27] MEDS: ISOSORBIDE MONONITRATE 60 MG TABLET PO SCH ×2 (09:59→20:52)
[2022-06-27] MEDS: SOTALOL 80 MG TABLET PO SCH (09:59)
[2022-06-27] MEDS: ASPIRIN CHEW 81 MG TABLET PO SCH (09:59)
[2022-06-27] MEDS: carvediloL 12.5 MG TABLET PO SCH ×2 (09:59→20:53)
[2022-06-27] MEDS: FUROSEMIDE 40 MG/4 ML VIAL IV SCH ×3 (09:59→19:46)
[2022-06-27] MEDS: PANTOPRAZOLE 40 MG VIAL IV SCH (10:00)
[2022-06-27 10:49] LABS: Arterial Base Excess iSTAT 5 MMOL/L (-2.5-2.5); Arterial Bicarbonate iSTAT 30.8 MMOL/L (20-26); Arterial O2 Saturation iSTAT 94 % (95-100); Arterial PCO2 iSTAT 53 MM HG (35-48); Arterial PO2 iSTAT 75 MM HG (80-95); Arterial Total CO2 iSTAT 32 MMO/L (23-27); Arterial pH iSTAT 7.371 (7.35-7.45)
[2022-06-27 11:52] LABS: Alanine Aminotransferase 74 U/L (13-56); Albumin 2.9 G/DL (3.4-5.0); Alkaline Phosphatase 67 U/L (45-117); Aspartate Amino Transferase 61 U/L (0-37); Bilirubin,Indirect 0.2 MG/DL (0.0-1.0); Bilirubin,Total < 0.39 MG/DL (0.20-1.00); Total Protein 6.4 G/DL (6.4-8.2)
[2022-06-27] MEDS: LACTULOSE 20 GM/30 ML UDCUP PO SCH ×2 (12:29→20:53)
[2022-06-27 12:58] LABS: Hepatitis B Core IgM Quant 0.06 Index; Hepatitis B Surface Ag Quant 0.14 Index; Hepatitis B Surface Ag Result Non-Reactive (NonReactive); Hepatitis C Virus Ab Quant 0.04 Index; Hepatitis C Virus Ab Result Non-Reactive (NonReactive)
[2022-06-27 13:44] LABS: Arterial Base Excess iSTAT 7 MMOL/L (-2.5-2.5); Arterial Bicarbonate iSTAT 34.2 MMOL/L (20-26); Arterial O2 Saturation iSTAT 100 % (95-100); Arterial PCO2 iSTAT 69 MM HG (35-48); Arterial PO2 iSTAT 375 MM HG (80-95); Arterial Total CO2 iSTAT 36 MMO/L (23-27); Arterial pH iSTAT 7.307 (7.35-7.45)
[2022-06-27 15:01] LABS: Bacteria,Urine Occasional /HPF (Few); Bilirubin,Urine Negative (Negative); Blood, Urine Trace mg/dL (Negative); Glucose,Urine (UA) Negative (Negative); Ketones,Urine Negative (Negative); Mucus,Urine Occasional /LPF (Occasional); Nitrite,Urine Negative (Negative); Protein,Urine 100 mg/dL (Negative); RBC,Urine 10 /HPF (0-4); Squamous Epithelial Cell,Urine Occasional /HPF (0-10); Urine Appearance Clear (Clear); Urine Color Yellow (Yellow); Urine pH 5.5 (4.5-8.0)
[2022-06-27 15:02] LABS: Urine Urobilinogen 0.2 eU/dL (<2.0)
[2022-06-27] MEDS: ERTAPENEM 500 MG in SODIUM CHLORIDE 0.9% 100 ML IV SCH (15:26)
[2022-06-27] MEDS ORDERED: CEFEPIME 1,000 MG in SODIUM CHLORIDE 0.9% 100 ML IV SCH (15:30)
[2022-06-27 15:40] LABS: Arterial Base Excess iSTAT 6 MMOL/L (-2.5-2.5); Arterial Bicarbonate iSTAT 32.8 MMOL/L (20-26); Arterial O2 Saturation iSTAT 92 % (95-100); Arterial PCO2 iSTAT 65 MM HG (35-48); Arterial PO2 iSTAT 72 MM HG (80-95); Arterial Total CO2 iSTAT 35 MMO/L (23-27); Arterial pH iSTAT 7.313 (7.35-7.45)
[2022-06-27] MEDS: ALBUTEROL/IPRATROPIUM 3 ML NEB RESP TX SCH ×2 (15:55→19:52)
[2022-06-27 17:17] LABS: Hematocrit 24.8 VOL% (35.7-47.0); Hemoglobin 7.4 GM/DL (12.0-16.0)
[2022-06-27 17:51] LABS: Arterial Base Excess iSTAT 6 MMOL/L (-2.5-2.5); Arterial Bicarbonate iSTAT 33.4 MMOL/L (20-26); Arterial O2 Saturation iSTAT 93 % (95-100); Arterial PCO2 iSTAT 67 MM HG (35-48); Arterial PO2 iSTAT 76 MM HG (80-95); Arterial Total CO2 iSTAT 35 MMO/L (23-27); Arterial pH iSTAT 7.304 (7.35-7.45)
[2022-06-27] MEDS ORDERED: PANTOPRAZOLE 40 MG TABLET PO ONE (19:51)
[2022-06-27] MEDS: PANTOPRAZOLE 40 MG TABLET PO SCH (20:53)
[2022-06-27] MEDS ORDERED: ROCURONIUM 100 MG/10 ML VIAL IV ONE ×2 (21:16→21:34)
[2022-06-27] MEDS ORDERED: ETOMIDATE 20 MG/10 ML VIAL IV ONE (21:16)
[2022-06-27] MEDS: ETOMIDATE 20 MG/10 ML VIAL IV ONE (21:22)
[2022-06-28] MEDS: ALBUTEROL/IPRATROPIUM 3 ML NEB RESP TX SCH ×5 (01:00→23:58)
[2022-06-28 03:36] LABS: Arterial Base Excess iSTAT 6 MMOL/L (-2.5-2.5); Arterial Bicarbonate iSTAT 32.5 MMOL/L (20-26); Arterial O2 Saturation iSTAT 94 % (95-100); Arterial PCO2 iSTAT 58 MM HG (35-48); Arterial PO2 iSTAT 77 MM HG (80-95); Arterial Total CO2 iSTAT 34 MMO/L (23-27); Arterial pH iSTAT 7.358 (7.35-7.45)
[2022-06-28 04:03] LABS: Basophils % 0.3 % (0.0-0.8); Eosinophils # 0.1 10*3/uL (0.0-0.87); Eosinophils % 1.1 % (0.00-10.9); Hematocrit 27.1 VOL% (35.7-47.0); Immature Granulocytes % 0.3 %; Immature Granulocytes Absolute 0.02 #; Lymphocytes # 0.6 10*3/uL (1.4-4.0); Lymphocytes % 9.4 % (21.3-54.2); Mean Corpuscular HGB Conc 29.5 GM/DL (32-36); Mean Corpuscular Volume 94.1 FL (87-102); Mean Platelet Volume 11.5 FL (9.6-12.0); Monocytes # 0.6 10*3/uL (0.11-0.8); Monocytes % 9.3 % (1.7-12.7); Neutrophils % 79.6 % (38.7-73.9); Platelet Count 143 T/CUMM (130-400); Red Blood Count 2.88 MC/CUMM (3.8-5.5); Red Cell Distribution Width 20.4 % (9.3-17.3); White Blood Count 6.6 T/CUMM (4-12)
[2022-06-28 04:09] LABS: INR 4.6; PT Patient Result 45.8 SECS (10.1-12.1)
[2022-06-28 04:18] LABS: Alanine Aminotransferase 70 U/L (13-56); Albumin 3.1 G/DL (3.4-5.0); Alkaline Phosphatase 74 U/L (45-117); Aspartate Amino Transferase 31 U/L (0-37); Bilirubin,Total < 0.39 MG/DL (0.20-1.00); Blood Urea Nitrogen 54 MG/DL (7-18); Calcium 8.2 MG/DL (8.5-10.1); Carbon Dioxide 31 MMOL/L (21-32); Chloride 111 MMOL/L (98-107); Glucose 126 MG/DL (74-106); Osmolality,Calculated 310.3 MOS/KG (273-304); Potassium 3.5 MMOL/L (3.5-5.1); Sodium 148 MMOL/L (136-145); Total Protein 6.7 G/DL (6.4-8.2)
[2022-06-28 04:22] LABS: Osmolality,Calculated 309.3 MOS/KG (273-304); Potassium 3.5 MMOL/L (3.5-5.1)
[2022-06-28] MEDS: LACTULOSE 20 GM/30 ML UDCUP PO SCH ×2 (09:40→20:25)
[2022-06-28] MEDS: PANTOPRAZOLE 40 MG TABLET PO SCH ×2 (09:40→20:25)
[2022-06-28] MEDS: FUROSEMIDE 40 MG/4 ML VIAL IV SCH ×2 (09:40→16:30)
[2022-06-28] MEDS: ASPIRIN CHEW 81 MG TABLET PO SCH (09:40)
[2022-06-28] MEDS: SOTALOL 80 MG TABLET PO SCH (09:40)
[2022-06-28] MEDS: ISOSORBIDE MONONITRATE 60 MG TABLET PO SCH ×2 (09:40→20:25)
[2022-06-28] MEDS: carvediloL 12.5 MG TABLET PO SCH ×2 (09:40→20:25)
[2022-06-28 12:35] LABS: Arterial Base Excess iSTAT 8 MMOL/L (-2.5-2.5); Arterial Bicarbonate iSTAT 33.8 MMOL/L (20-26); Arterial O2 Saturation iSTAT 91 % (95-100); Arterial PCO2 iSTAT 56 MM HG (35-48); Arterial PO2 iSTAT 64 MM HG (80-95); Arterial Total CO2 iSTAT 35 MMO/L (23-27); Arterial pH iSTAT 7.392 (7.35-7.45)
[2022-06-29 03:34] LABS: Basophils % 0.2 % (0.0-0.8); Eosinophils # 0.1 10*3/uL (0.0-0.87); Eosinophils % 1.8 % (0.00-10.9); Hematocrit 23.9 VOL% (35.7-47.0); Hemoglobin 7.2 GM/DL (12.0-16.0); Immature Granulocytes % 0.5 %; Immature Granulocytes Absolute 0.03 #; Lymphocytes # 0.5 10*3/uL (1.4-4.0); Lymphocytes % 8.6 % (21.3-54.2); Mean Corpuscular HGB Conc 30.1 GM/DL (32-36); Mean Corpuscular Volume 93.4 FL (87-102); Mean Platelet Volume 12.2 FL (9.6-12.0); Monocytes # 0.5 10*3/uL (0.11-0.8); Monocytes % 7.9 % (1.7-12.7); Platelet Count 137 T/CUMM (130-400); Red Blood Count 2.56 MC/CUMM (3.8-5.5); Red Cell Distribution Width 20.6 % (9.3-17.3); White Blood Count 5.7 T/CUMM (4-12)
[2022-06-29 03:46] LABS: PT Patient Result 39.8 SECS (10.1-12.1)
[2022-06-29 04:05] LABS: Albumin 2.7 G/DL (3.4-5.0); Bilirubin,Total 0.4 MG/DL (0.20-1.00); Calcium 7.5 MG/DL (8.5-10.1); Phosphorous 2.6 MG/DL (2.5-4.9); Potassium 3.2 MMOL/L (3.5-5.1); Total Protein 5.8 G/DL (6.4-8.2)
[2022-06-29 04:28] LABS: Arterial Base Excess iSTAT 9 MMOL/L (-2.5-2.5); Arterial O2 Saturation iSTAT 99 % (95-100); Arterial PCO2 iSTAT 41 MM HG (35-48); Arterial PO2 iSTAT 105 MM HG (80-95); Arterial Total CO2 iSTAT 34 MMO/L (23-27); Arterial pH iSTAT 7.513 (7.35-7.45)
[2022-06-29] MEDS ORDERED: MAGNESIUM SULF RIDER 2 GM/50 ML PREMIX IV PRN (04:29)
[2022-06-29] MEDS ORDERED: MAGNESIUM SULF RIDER 4 GM/100 ML PREMIX IV PRN (04:29)
[2022-06-29] MEDS: POTASSIUM BICARB EFFERVESCENT 20 MEQ TAB.EFF PER TUBE PRN ×3 (05:05→17:24)
[2022-06-29] MEDS: ALBUTEROL/IPRATROPIUM 3 ML NEB RESP TX SCH ×3 (07:29→19:25)
[2022-06-29] MEDS: FUROSEMIDE 40 MG/4 ML VIAL IV SCH (08:20)
[2022-06-29] MEDS: ASPIRIN CHEW 81 MG TABLET PO SCH (08:22)
[2022-06-29] MEDS: ISOSORBIDE MONONITRATE 60 MG TABLET PO SCH ×2 (08:22→21:04)
[2022-06-29] MEDS: SOTALOL 80 MG TABLET PO SCH (08:22)
[2022-06-29] MEDS: carvediloL 12.5 MG TABLET PO SCH ×2 (08:22→21:04)
[2022-06-29] MEDS: PANTOPRAZOLE 40 MG TABLET PO SCH ×2 (08:22→21:04)
[2022-06-29] MEDS: LACTULOSE 20 GM/30 ML UDCUP PO SCH ×2 (08:22→22:14)
[2022-06-29] MEDS: DIGOXIN 0.125 MG TABLET PO SCH (13:06)
[2022-06-30 04:12] LABS: Basophils % 0.2 % (0.0-0.8); Eosinophils # 0.1 10*3/uL (0.0-0.87); Eosinophils % 1.7 % (0.00-10.9); Hematocrit 24.2 VOL% (35.7-47.0); Hemoglobin 7.4 GM/DL (12.0-16.0); Immature Granulocytes % 0.5 %; Immature Granulocytes Absolute 0.03 #; Lymphocytes # 0.5 10*3/uL (1.4-4.0); Mean Corpuscular HGB Conc 30.6 GM/DL (32-36); Mean Corpuscular Volume 92.7 FL (87-102); Mean Platelet Volume 11.3 FL (9.6-12.0); Monocytes # 0.5 10*3/uL (0.11-0.8); Monocytes % 7.8 % (1.7-12.7); Neutrophils % 80.8 % (38.7-73.9); Platelet Count 149 T/CUMM (130-400); Red Blood Count 2.61 MC/CUMM (3.8-5.5); Red Cell Distribution Width 20.8 % (9.3-17.3); White Blood Count 5.9 T/CUMM (4-12)
[2022-06-30 04:16] LABS: Arterial Base Excess iSTAT 11 MMOL/L (-2.5-2.5); Arterial Bicarbonate iSTAT 35.7 MMOL/L (20-26); Arterial O2 Saturation iSTAT 94 % (95-100); Arterial PCO2 iSTAT 49 MM HG (35-48); Arterial PO2 iSTAT 70 MM HG (80-95); Arterial Total CO2 iSTAT 37 MMO/L (23-27)
[2022-06-30 04:16] LABS: Albumin 2.6 G/DL (3.4-5.0); Bilirubin,Total 0.4 MG/DL (0.20-1.00); Calcium 7.8 MG/DL (8.5-10.1); Potassium 3.4 MMOL/L (3.5-5.1); Total Protein 5.9 G/DL (6.4-8.2)
[2022-06-30] MEDS: POTASSIUM BICARB EFFERVESCENT 20 MEQ TAB.EFF PER TUBE PRN ×2 (05:32→08:18)
[2022-06-30] MEDS: ALBUTEROL/IPRATROPIUM 3 ML NEB RESP TX SCH ×4 (07:20→19:24)
[2022-06-30 07:43] LABS: INR 2.9; PT Patient Result 29.6 SECS (10.1-12.1)
[2022-06-30] MEDS: ASPIRIN CHEW 81 MG TABLET PO SCH (08:17)
[2022-06-30] MEDS: LACTULOSE 20 GM/30 ML UDCUP PO SCH (08:17)
[2022-06-30] MEDS: ISOSORBIDE MONONITRATE 60 MG TABLET PO SCH ×2 (08:17→21:03)
[2022-06-30] MEDS: PANTOPRAZOLE 40 MG TABLET PO SCH (08:17)
[2022-06-30] MEDS: carvediloL 12.5 MG TABLET PO SCH ×2 (08:17→21:03)
[2022-06-30] MEDS: SOTALOL 80 MG TABLET PO SCH (08:17)
[2022-06-30] MEDS ORDERED: NICOTINE 21 MG/24 HR PATCH TRANSDERM PRN (10:49)
[2022-06-30] MEDS ORDERED: POTASSIUM CHLORIDE 20 MEQ TABLET PO ONE (11:10)
[2022-06-30] MEDS: DIGOXIN 0.125 MG TABLET PO SCH (12:00)
[2022-06-30] MEDS: WARFARIN 4 MG TABLET PO SCH (18:16)
[2022-06-30] MEDS: ACETAMINOPHEN 325 MG TABLET PO PRN (19:30)
[2022-06-30] MEDS: LATANOPROST 0.005% OPH SOLN 2.5 ML BOTTLE BOTH EYES SCH (22:21)
[2022-07-01] MEDS: ALBUTEROL/IPRATROPIUM 3 ML NEB RESP TX SCH ×4 (00:21→18:03)
[2022-07-01 05:09] LABS: Basophils % 0.2 % (0.0-0.8); Eosinophils # 0.1 10*3/uL (0.0-0.87); Eosinophils % 2.4 % (0.00-10.9); Hematocrit 25.3 VOL% (35.7-47.0); Hemoglobin 7.6 GM/DL (12.0-16.0); Immature Granulocytes % 0.4 %; Immature Granulocytes Absolute 0.02 #; Lymphocytes # 0.6 10*3/uL (1.4-4.0); Lymphocytes % 13.7 % (21.3-54.2); Mean Corpuscular Volume 94.8 FL (87-102); Mean Platelet Volume 11.8 FL (9.6-12.0); Monocytes # 0.5 10*3/uL (0.11-0.8); Monocytes % 10.4 % (1.7-12.7); Neutrophils % 72.9 % (38.7-73.9); Platelet Count 143 T/CUMM (130-400); Red Blood Count 2.67 MC/CUMM (3.8-5.5); Red Cell Distribution Width 20.9 % (9.3-17.3); White Blood Count 4.6 T/CUMM (4-12)
[2022-07-01 05:22] LABS: INR 2.9; PT Patient Result 29.5 SECS (10.1-12.1)
[2022-07-01 05:47] LABS: Calcium 7.8 MG/DL (8.5-10.1); Osmolality,Calculated 300.6 MOS/KG (273-304)
[2022-07-01] MEDS: ASPIRIN CHEW 81 MG TABLET PO SCH (09:42)
[2022-07-01] MEDS: ISOSORBIDE MONONITRATE 60 MG TABLET PO SCH ×2 (09:43→22:02)
[2022-07-01] MEDS: carvediloL 12.5 MG TABLET PO SCH ×2 (09:43→22:02)
[2022-07-01] MEDS: PANTOPRAZOLE 40 MG TABLET PO SCH (09:44)
[2022-07-01] MEDS: SOTALOL 80 MG TABLET PO SCH (09:44)
[2022-07-01] MEDS: POLYETHYLENE GLYCOL POWDER 17 GM PACK PO SCH (09:45)
[2022-07-01] MEDS: DIGOXIN 0.125 MG TABLET PO SCH (14:26)
[2022-07-01] MEDS: WARFARIN 4 MG TABLET PO SCH (18:04)
[2022-07-02] MEDS: ALBUTEROL/IPRATROPIUM 3 ML NEB RESP TX SCH ×4 (00:40→19:15)
[2022-07-02] MEDS: LATANOPROST 0.005% OPH SOLN 2.5 ML BOTTLE BOTH EYES SCH ×2 (01:44→22:30)
[2022-07-02 05:02] LABS: Basophils % 0.4 % (0.0-0.8); Eosinophils # 0.1 10*3/uL (0.0-0.87); Eosinophils % 1.7 % (0.00-10.9); Hemoglobin 7.4 GM/DL (12.0-16.0); INR 2.8; Immature Granulocytes % 0.4 %; Immature Granulocytes Absolute 0.02 #; Lymphocytes # 0.6 10*3/uL (1.4-4.0); Lymphocytes % 11.7 % (21.3-54.2); Mean Corpuscular HGB Conc 29.6 GM/DL (32-36); Mean Corpuscular Volume 95.8 FL (87-102); Mean Platelet Volume 12.3 FL (9.6-12.0); Monocytes # 0.4 10*3/uL (0.11-0.8); Neutrophils % 77.8 % (38.7-73.9); PT Patient Result 28.7 SECS (10.1-12.1); Platelet Count 149 T/CUMM (130-400); Red Blood Count 2.61 MC/CUMM (3.8-5.5); Red Cell Distribution Width 20.5 % (9.3-17.3); White Blood Count 5.3 T/CUMM (4-12)
[2022-07-02 05:13] LABS: Calcium 7.8 MG/DL (8.5-10.1); Osmolality,Calculated 294.8 MOS/KG (273-304)
[2022-07-02] MEDS: ACETAMINOPHEN 325 MG TABLET PO PRN (06:42)
[2022-07-02] MEDS: ISOSORBIDE MONONITRATE 60 MG TABLET PO SCH ×2 (10:50→21:36)
[2022-07-02] MEDS: SOTALOL 80 MG TABLET PO SCH (10:51)
[2022-07-02] MEDS: POLYETHYLENE GLYCOL POWDER 17 GM PACK PO SCH (10:51)
[2022-07-02] MEDS: PANTOPRAZOLE 40 MG TABLET PO SCH (10:51)
[2022-07-02] MEDS: ASPIRIN CHEW 81 MG TABLET PO SCH (10:52)
[2022-07-02] MEDS: carvediloL 12.5 MG TABLET PO SCH ×2 (10:52→21:36)
[2022-07-02] MEDS: DIGOXIN 0.125 MG TABLET PO SCH (13:52)
[2022-07-02] MEDS: WARFARIN 4 MG TABLET PO SCH (17:03)
[2022-07-03] MEDS: ALBUTEROL/IPRATROPIUM 3 ML NEB RESP TX SCH ×4 (00:07→19:15)
[2022-07-03 05:47] LABS: Basophils % 0.2 % (0.0-0.8); Eosinophils # 0.1 10*3/uL (0.0-0.87); Eosinophils % 1.6 % (0.00-10.9); Hematocrit 22.7 VOL% (35.7-47.0); Hemoglobin 6.6 GM/DL (12.0-16.0); Immature Granulocytes % 0.4 %; Immature Granulocytes Absolute 0.02 #; Lymphocytes # 0.6 10*3/uL (1.4-4.0); Lymphocytes % 13.1 % (21.3-54.2); Mean Corpuscular HGB Conc 29.1 GM/DL (32-36); Mean Corpuscular Volume 97.8 FL (87-102); Mean Platelet Volume 11.9 FL (9.6-12.0); Monocytes # 0.4 10*3/uL (0.11-0.8); Monocytes % 8.2 % (1.7-12.7); Neutrophils % 76.5 % (38.7-73.9); Platelet Count 145 T/CUMM (130-400); Red Blood Count 2.32 MC/CUMM (3.8-5.5); Red Cell Distribution Width 20.9 % (9.3-17.3); White Blood Count 4.5 T/CUMM (4-12)
[2022-07-03 06:08] LABS: Osmolality,Calculated 296.4 MOS/KG (273-304); Potassium 3.7 MMOL/L (3.5-5.1)
[2022-07-03] MEDS ORDERED: SODIUM CHLORIDE 0.9% 1,000 ML IV PRN (07:48)
[2022-07-03 08:25] LABS: INR 2.4; PT Patient Result 25.3 SECS (10.1-12.1); Partial Thromboplastin Time 36.5 SECS (23.7-32.9)
[2022-07-03] MEDS ORDERED: METHOCARBAMOL 500 MG TABLET PO ONE (10:47)
[2022-07-03] MEDS ORDERED: DOCUSATE SODIUM 100 MG CAPSULE PO PRN (10:50)
[2022-07-03] MEDS: ACETAMINOPHEN 325 MG TABLET PO PRN (11:26)
[2022-07-03] MEDS: PANTOPRAZOLE 40 MG TABLET PO SCH (11:27)
[2022-07-03] MEDS: ISOSORBIDE MONONITRATE 60 MG TABLET PO SCH ×2 (11:28→21:02)
[2022-07-03] MEDS: ASPIRIN CHEW 81 MG TABLET PO SCH (11:28)
[2022-07-03] MEDS: carvediloL 12.5 MG TABLET PO SCH ×2 (11:28→21:02)
[2022-07-03] MEDS: POLYETHYLENE GLYCOL POWDER 17 GM PACK PO SCH (11:29)
[2022-07-03] MEDS: SOTALOL 80 MG TABLET PO SCH (11:29)
[2022-07-03] MEDS: DIGOXIN 0.125 MG TABLET PO SCH (16:14)
[2022-07-03] MEDS: cloNIDine 0.1 MG TABLET PO PRN (16:14)
[2022-07-03] MEDS: WARFARIN 4 MG TABLET PO SCH (18:55)
[2022-07-03] MEDS: LATANOPROST 0.005% OPH SOLN 2.5 ML BOTTLE BOTH EYES SCH (21:02)
[2022-07-04] MEDS: ALBUTEROL/IPRATROPIUM 3 ML NEB RESP TX SCH ×4 (00:28→19:16)
[2022-07-04 04:37] LABS: Basophils % 0.4 % (0.0-0.8); Eosinophils # 0.1 10*3/uL (0.0-0.87); Eosinophils % 1.4 % (0.00-10.9); Hematocrit 32.1 VOL% (35.7-47.0); Lymphocytes # 0.6 10*3/uL (1.4-4.0); Lymphocytes % 10.8 % (21.3-54.2); Mean Corpuscular HGB Conc 31.2 GM/DL (32-36); Mean Platelet Volume 11.6 FL (9.6-12.0); Monocytes # 0.4 10*3/uL (0.11-0.8); Monocytes % 7.5 % (1.7-12.7); Neutrophils % 79.5 % (38.7-73.9); Platelet Count 152 T/CUMM (130-400); Red Blood Count 3.49 MC/CUMM (3.8-5.5); Red Cell Distribution Width 18.6 % (9.3-17.3); White Blood Count 5.1 T/CUMM (4-12)
[2022-07-04 04:44] LABS: INR 2.5; PT Patient Result 25.9 SECS (10.1-12.1)
[2022-07-04 04:52] LABS: Calcium 8.2 MG/DL (8.5-10.1); Osmolality,Calculated 288.1 MOS/KG (273-304); Potassium 4.1 MMOL/L (3.5-5.1)
[2022-07-04] MEDS: ASPIRIN CHEW 81 MG TABLET PO SCH (09:41)
[2022-07-04] MEDS: ISOSORBIDE MONONITRATE 60 MG TABLET PO SCH ×2 (09:41→21:11)
[2022-07-04] MEDS: POLYETHYLENE GLYCOL POWDER 17 GM PACK PO SCH (09:41)
[2022-07-04] MEDS: SOTALOL 80 MG TABLET PO SCH (09:41)
[2022-07-04] MEDS: PANTOPRAZOLE 40 MG TABLET PO SCH (09:41)
[2022-07-04] MEDS: carvediloL 12.5 MG TABLET PO SCH ×2 (09:41→21:11)
[2022-07-04] MEDS: ACETAMINOPHEN 325 MG TABLET PO PRN (09:42)
[2022-07-04] MEDS: DIGOXIN 0.125 MG TABLET PO SCH (14:21)
[2022-07-04] MEDS: WARFARIN 4 MG TABLET PO SCH (18:19)
[2022-07-04] MEDS: LATANOPROST 0.005% OPH SOLN 2.5 ML BOTTLE BOTH EYES SCH (21:11)
[2022-07-04] MEDS: MELATONIN 3 MG TABLET PO PRN (21:11)
[2022-07-05] MEDS: ALBUTEROL/IPRATROPIUM 3 ML NEB RESP TX SCH ×4 (00:19→19:18)
[2022-07-05 05:32] LABS: Basophils % 0.2 % (0.0-0.8); Eosinophils # 0.1 10*3/uL (0.0-0.87); Eosinophils % 1.1 % (0.00-10.9); Hematocrit 34.9 VOL% (35.7-47.0); Immature Granulocytes % 0.5 %; Immature Granulocytes Absolute 0.03 #; Lymphocytes # 0.6 10*3/uL (1.4-4.0); Lymphocytes % 9.8 % (21.3-54.2); Mean Corpuscular HGB Conc 31.5 GM/DL (32-36); Mean Corpuscular Volume 93.3 FL (87-102); Mean Platelet Volume 11.6 FL (9.6-12.0); Monocytes # 0.4 10*3/uL (0.11-0.8); Monocytes % 6.5 % (1.7-12.7); Neutrophils % 81.9 % (38.7-73.9); Platelet Count 167 T/CUMM (130-400); Red Blood Count 3.74 MC/CUMM (3.8-5.5); Red Cell Distribution Width 18.9 % (9.3-17.3); White Blood Count 6.4 T/CUMM (4-12)
[2022-07-05 05:43] LABS: INR 2.9; PT Patient Result 29.9 SECS (10.1-12.1)
[2022-07-05 05:48] LABS: Calcium 7.9 MG/DL (8.5-10.1); Potassium 4.1 MMOL/L (3.5-5.1)
[2022-07-05] MEDS: carvediloL 12.5 MG TABLET PO SCH (08:27)
[2022-07-05] MEDS: ISOSORBIDE MONONITRATE 60 MG TABLET PO SCH ×2 (08:27→20:41)
[2022-07-05] MEDS: ASPIRIN CHEW 81 MG TABLET PO SCH (08:28)
[2022-07-05] MEDS: PANTOPRAZOLE 40 MG TABLET PO SCH (08:28)
[2022-07-05] MEDS: SOTALOL 80 MG TABLET PO SCH (08:28)
[2022-07-05] MEDS: POLYETHYLENE GLYCOL POWDER 17 GM PACK PO SCH (08:28)
[2022-07-05] MEDS: carvediloL 25 MG TABLET PO SCH ×2 (10:57→20:41)
[2022-07-05] MEDS: DIGOXIN 0.125 MG TABLET PO SCH (14:12)
[2022-07-05] MEDS: ACETAMINOPHEN 325 MG TABLET PO PRN (14:12)
[2022-07-05] MEDS: WARFARIN 4 MG TABLET PO SCH (17:19)
[2022-07-05] MEDS: ASCORBIC ACID 500 MG TABLET PO SCH (20:41)
[2022-07-05] MEDS: LATANOPROST 0.005% OPH SOLN 2.5 ML BOTTLE BOTH EYES SCH (20:43)
[2022-07-05] MEDS: MELATONIN 3 MG TABLET PO PRN (21:57)
[2022-07-06] MEDS: ALBUTEROL/IPRATROPIUM 3 ML NEB RESP TX SCH ×4 (01:36→19:02)
[2022-07-06 04:34] LABS: Basophils % 0.3 % (0.0-0.8); Eosinophils # 0.1 10*3/uL (0.0-0.87); Hematocrit 34.7 VOL% (35.7-47.0); Hemoglobin 10.9 GM/DL (12.0-16.0); Immature Granulocytes % 0.5 %; Immature Granulocytes Absolute 0.03 #; Lymphocytes # 0.7 10*3/uL (1.4-4.0); Lymphocytes % 10.7 % (21.3-54.2); Mean Corpuscular HGB Conc 31.4 GM/DL (32-36); Mean Corpuscular Volume 92.8 FL (87-102); Mean Platelet Volume 12.1 FL (9.6-12.0); Monocytes # 0.5 10*3/uL (0.11-0.8); Monocytes % 7.5 % (1.7-12.7); Platelet Count 180 T/CUMM (130-400); Red Blood Count 3.74 MC/CUMM (3.8-5.5); Red Cell Distribution Width 18.9 % (9.3-17.3); White Blood Count 6.2 T/CUMM (4-12)
[2022-07-06 04:40] LABS: INR 2.6; PT Patient Result 26.6 SECS (10.1-12.1)
[2022-07-06 04:46] LABS: Calcium 8.4 MG/DL (8.5-10.1); Osmolality,Calculated 290.1 MOS/KG (273-304); Potassium 4.1 MMOL/L (3.5-5.1)
[2022-07-06] MEDS: hydrALAZINE 20 MG/1 ML VIAL IV PRN (07:26)
[2022-07-06] MEDS: POLYETHYLENE GLYCOL POWDER 17 GM PACK PO SCH (10:09)
[2022-07-06] MEDS: ASPIRIN CHEW 81 MG TABLET PO SCH (10:09)
[2022-07-06] MEDS: SOTALOL 80 MG TABLET PO SCH (10:09)
[2022-07-06] MEDS: carvediloL 25 MG TABLET PO SCH ×2 (10:09→20:37)
[2022-07-06] MEDS: PANTOPRAZOLE 40 MG TABLET PO SCH (10:09)
[2022-07-06] MEDS: ISOSORBIDE MONONITRATE 60 MG TABLET PO SCH ×2 (10:09→20:37)
[2022-07-06] MEDS: ASCORBIC ACID 500 MG TABLET PO SCH ×2 (10:10→20:37)
[2022-07-06] MEDS: DIGOXIN 0.125 MG TABLET PO SCH (16:41)
[2022-07-06] MEDS: WARFARIN 4 MG TABLET PO SCH (18:12)
[2022-07-06] MEDS: LATANOPROST 0.005% OPH SOLN 2.5 ML BOTTLE BOTH EYES SCH (20:38)
[2022-07-06] MEDS: DULoxetine 20 MG CAPSULE PO SCH (20:38)
[2022-07-07] MEDS: ALBUTEROL/IPRATROPIUM 3 ML NEB RESP TX SCH ×4 (00:26→19:05)
[2022-07-07 06:11] LABS: Basophils % 0.2 % (0.0-0.8); Eosinophils # 0.1 10*3/uL (0.0-0.87); Eosinophils % 1.1 % (0.00-10.9); Hematocrit 33.8 VOL% (35.7-47.0); Hemoglobin 10.5 GM/DL (12.0-16.0); Immature Granulocytes % 0.4 %; Immature Granulocytes Absolute 0.02 #; Lymphocytes # 0.6 10*3/uL (1.4-4.0); Lymphocytes % 11.6 % (21.3-54.2); Mean Corpuscular HGB Conc 31.1 GM/DL (32-36); Mean Corpuscular Volume 94.7 FL (87-102); Mean Platelet Volume 11.9 FL (9.6-12.0); Monocytes # 0.5 10*3/uL (0.11-0.8); Monocytes % 8.3 % (1.7-12.7); Neutrophils % 78.4 % (38.7-73.9); Platelet Count 146 T/CUMM (130-400); Red Blood Count 3.57 MC/CUMM (3.8-5.5); Red Cell Distribution Width 18.6 % (9.3-17.3); White Blood Count 5.4 T/CUMM (4-12)
[2022-07-07 06:15] LABS: INR 2.6; PT Patient Result 26.4 SECS (10.1-12.1)
[2022-07-07 06:21] LABS: Calcium 8.2 MG/DL (8.5-10.1); Osmolality,Calculated 289.1 MOS/KG (273-304); Potassium 4.2 MMOL/L (3.5-5.1)
[2022-07-07] MEDS: ASCORBIC ACID 500 MG TABLET PO SCH ×2 (08:08→21:33)
[2022-07-07] MEDS: carvediloL 25 MG TABLET PO SCH ×2 (08:08→21:34)
[2022-07-07] MEDS: ISOSORBIDE MONONITRATE 60 MG TABLET PO SCH ×2 (08:08→21:34)
[2022-07-07] MEDS: PANTOPRAZOLE 40 MG TABLET PO SCH (08:08)
[2022-07-07] MEDS: ASPIRIN CHEW 81 MG TABLET PO SCH (08:09)
[2022-07-07] MEDS: SOTALOL 80 MG TABLET PO SCH (08:09)
[2022-07-07] MEDS: POLYETHYLENE GLYCOL POWDER 17 GM PACK PO SCH (08:09)
[2022-07-07] MEDS: DIGOXIN 0.125 MG TABLET PO SCH (13:37)
[2022-07-07] MEDS: WARFARIN 4 MG TABLET PO SCH (17:03)
[2022-07-07] MEDS: DULoxetine 20 MG CAPSULE PO SCH (21:33)
[2022-07-07] MEDS: MELATONIN 3 MG TABLET PO PRN (21:33)
[2022-07-07] MEDS: LATANOPROST 0.005% OPH SOLN 2.5 ML BOTTLE BOTH EYES SCH (21:34)
[2022-07-08] MEDS: ALBUTEROL/IPRATROPIUM 3 ML NEB RESP TX SCH ×3 (00:06→13:43)
[2022-07-08 05:02] LABS: Basophils % 0.3 % (0.0-0.8); Eosinophils # 0.1 10*3/uL (0.0-0.87); Eosinophils % 0.8 % (0.00-10.9); Hematocrit 34.7 VOL% (35.7-47.0); Hemoglobin 10.8 GM/DL (12.0-16.0); Immature Granulocytes % 0.3 %; Immature Granulocytes Absolute 0.02 #; Lymphocytes # 0.7 10*3/uL (1.4-4.0); Lymphocytes % 11.1 % (21.3-54.2); Mean Corpuscular HGB Conc 31.1 GM/DL (32-36); Mean Corpuscular Volume 94.3 FL (87-102); Mean Platelet Volume 12.4 FL (9.6-12.0); Monocytes # 0.4 10*3/uL (0.11-0.8); Neutrophils % 80.5 % (38.7-73.9); Platelet Count 150 T/CUMM (130-400); Red Blood Count 3.68 MC/CUMM (3.8-5.5); Red Cell Distribution Width 18.6 % (9.3-17.3)
[2022-07-08 05:28] LABS: Calcium 8.5 MG/DL (8.5-10.1); Osmolality,Calculated 289.3 MOS/KG (273-304); Potassium 4.3 MMOL/L (3.5-5.1)
[2022-07-08] MEDS: hydrALAZINE 20 MG/1 ML VIAL IV PRN (05:41)
[2022-07-08] MEDS: ASPIRIN CHEW 81 MG TABLET PO SCH (10:40)
[2022-07-08] MEDS: SOTALOL 80 MG TABLET PO SCH (10:40)
[2022-07-08] MEDS: cloNIDine 0.1 MG TABLET PO PRN (10:40)
[2022-07-08] MEDS: ASCORBIC ACID 500 MG TABLET PO SCH (10:40)
[2022-07-08] MEDS: POLYETHYLENE GLYCOL POWDER 17 GM PACK PO SCH (10:41)
[2022-07-08] MEDS: carvediloL 25 MG TABLET PO SCH (10:41)
[2022-07-08] MEDS: ISOSORBIDE MONONITRATE 60 MG TABLET PO SCH (10:41)
[2022-07-08] MEDS: PANTOPRAZOLE 40 MG TABLET PO SCH (10:41)
[2022-07-08] MEDS ORDERED: HEPARIN LOCK FLUSH 500 UNIT/5 ML SYRINGE IV ONE (13:14)
[2022-07-08] MEDS ORDERED: DOXAZOSIN 1 MG TABLET PO SCH (13:30)
[2022-07-08 13:45] VITALS: BP 189/91
[2022-07-08] MEDS: DIGOXIN 0.125 MG TABLET PO SCH (15:04)
== END 2022-07-08 15:23 | DRG 813 ==
LOC: N.ED 03:18 → SUATTDRO 04:59 → N.TELEN 04:59 → N.CC 06-27 18:36 → N.TELES 06-30 17:36
PROVIDERS: ADMIT Internal Medicine; ATTEND Emergency Medicine